=== PATIENT | female | born 1950 | race Caucasian/White ===

== ENCOUNTER 2018-05-22 12:38 | Inpatient (IN) | payer MEDICARE, MEDICAID ==
[~2018-05-22] VITALS: Ht 165.1 cm; Wt 78.2 kg
[2018-05-22 12:38] VITALS: BP 109/61
[~2018-05-22 12:38] MED LIST: AMLODIPINE BESY10 MG ORAL; ATORVASTATIN CA20 MG ORAL; DIVALPROEX SOD500 M2 PO; FLUPHENAZINE HCL5 MG ORAL; LEVOTHYROXINE75 MCG ORAL; LORAZEPAM1 MG ORAL; METOPROLOL SUC100 MG ORAL; OLANZAPINE ODT10 MG PO; OMEPRAZOLE20 M2 ORAL; TEMAZEPAM15 MG ORAL
--- NOTE | 2018-05-22 12:40 | NUR ---
ED Nurse Note: Pt brought in by ambulance from [facility] (assisted living), per EMS report, pt fell today unwitnessed and staff sent pt for eval. ENR to hospital, pt , 02 was at 86% and started nonrebreather. Pt AA&ox3, gcs=15, skin warm and dry, noted tacypnea, but no accessory muscle use, abd round and soft, nontender, -n/v/d. pt states she uses walker at the facility for ambulation. pt NSR on air sampling and monitoring, base line o2 83 on RA, kept pt on nonbreather via 6L/min. Bed lowest position with side rail x2, ERMD notified regarding pts condition. Will cont monitor.
[2018-05-22] MEDS ORDERED: UNOBMED (12:45)
--- NOTE | 2018-05-22 12:45 | NUR ---
ED Nurse Note: care endorsed to Jannie and gave report.
--- NOTE | 2018-05-22 13:10 | NUR ---
ED Nurse Note: Xray at the bedside.
[2018-05-22 13:12] LABS: BASOPHILS % (AUTO) 0.8 % (0.0-2.0); EOSINOPHILS % (AUTO) 0.1 % (0.0-3.0); HEMATOCRIT 47.5 % (37.0-47.0); HEMOGLOBIN 15.9 G/DL (12.0-16.0); LYMPHOCYTES % (AUTO) 16.7 % (20.0-45.0); MEAN CORPUSCULAR VOLUME 93 FL (80-99); MONOCYTES % (AUTO) 12.6 % (1.0-10.0); NEUTROPHILS % (AUTO) 69.7 % (45.0-75.0); PLATELET COUNT 231 K/UL (150-450); RED BLOOD COUNT 5.12 M/UL (4.20-5.40); WHITE BLOOD COUNT 16.1 K/UL (4.8-10.8)
[2018-05-22 13:17] LABS: APPEARANCE,URINE CLEAR; BILIRUBIN, URINE NEGATIVE (NEGATIVE); GLUCOSE, URINE (UA) NEGATIVE (NEGATIVE); KETONES,URINE 1+ (NEGATIVE); LEUKOCYTE ESTERASE ,URINE 1+ (NEGATIVE); NITRITE,URINE NEGATIVE (NEGATIVE); PH,URINE 6 (4.5-8.0); PROTEIN,URINE 2+ (NEGATIVE); UROBILINOGEN,URINE 1 MG/DL (0.0-1.0)
--- NOTE | 2018-05-22 13:25 | NUR ---
ED Nurse Note: Notified RT of ABG and Bipap order.
[2018-05-22 13:29] LABS: ALANINE AMINOTRANSFERASE 24 U/L (12-78); ALBUMIN 2.9 G/DL (3.4-5.0); ALBUMIN/GLOBULIN RATIO 0.7 (1.0-2.7); ALKALINE PHOSPHATASE 99 U/L (46-116); ANION GAP 5 mmol/L (5-15); ASPARTATE AMINO TRANSFERASE 32 U/L (15-37); BILIRUBIN,TOTAL 0.3 MG/DL (0.2-1.0); BLOOD UREA NITROGEN 12 mg/dL (7-18); CALCIUM 9.2 MG/DL (8.5-10.1); CARBON DIOXIDE 34 MMOL/L (21-32); CHLORIDE 101 MMOL/L (98-107); CREATININE 0.8 MG/DL (0.55-1.30); POTASSIUM 3.7 MMOL/L (3.5-5.1); SODIUM 140 MMOL/L (136-145)
[2018-05-22 13:32] LABS: COLOR,URINE YELLOW
[2018-05-22 13:36] VITALS: BP 109/61
--- NOTE | 2018-05-22 13:38 | Diagnostic Imaging Report ---
Indication: Dyspnea Comparison: None A single view chest radiograph was obtained. Findings: No definite infiltrate or pulmonary vascular congestion identified. The heart is normal in size. The aorta is mildly enlarged consistent with atherosclerotic vascular disease. The bones are osteopenic. Impression: No acute disease
--- NOTE | 2018-05-22 13:45 | NUR ---
ED Nurse Note: RT at the bedside. Bipap on hold.
--- NOTE | 2018-05-22 14:07 | NUR ---
ED Nurse Note: Notified RT of Bipap order. RT at the bedside.
[2018-05-22] MEDS ORDERED: Albuterol ud Inhalation HHN ONE (14:45)
--- NOTE | 2018-05-22 14:50 | NUR ---
ED Nurse Note: Notified RT of breathing tx order.
--- NOTE | 2018-05-22 15:07 | NUR ---
ED Nurse Note: Pt went down to CT.
--- NOTE | 2018-05-22 15:20 | NUR ---
ED Nurse Note: Pt back from CT.
--- NOTE | 2018-05-22 15:22 | NUR ---
ED Nurse Note: Tried to give report. RN unavailable.
--- NOTE | 2018-05-22 15:30 | Emergency Room Report ---
History of Present Illness General Chief Complaint: Dyspnea/Respdistress Source: Patient Present Illness HPI Patient presents from a long term facility for low oxygen saturations. The patient herself has no specific complaints. The patient is sleepy but can answer basic yes or no questions. There is no fever or chills. There is no cough or congestion. There is no chest pain or shortness of breath. There are no other complaints. Allergies: Coded Allergies: No Known Allergies (Unverified , 05/22/18) Patient History Past Medical History: see triage record, HTN, psych hx Social History: Denies: smoking, alcohol use, drug use Reviewed Nursing Documentation: PMH: Agreed; PSxH: Agreed Nursing Documentation-PMH Past Medical History: No Stated History Review of Systems All Other Systems: negative except mentioned in HPI Physical Exam Vital Signs Date Time Temp Pulse Resp B/P (MAP) Pulse Ox O2 Delivery O2 Flow Rate FiO2 05/22/18 12:38 98.4 98 30 109/61 83 Room Air 05/22/18 12:39 10.0 05/22/18 14:15 60 Sp02 EP Interpretation: reviewed, normal General Appearance: no apparent distress, GCS 15, non-toxic, other - sleepy but arousable to answer questions appropriately Head: normocephalic, atraumatic Eyes: bilateral eye normal inspection, bilateral eye PERRL ENT: hearing grossly normal, normal pharynx, no angioedema, normal voice Neck: full range of motion, supple/symm/no masses Respiratory: chest non-tender, lungs clear, normal breath sounds, no respiratory distress, no retraction, no accessory muscle use, speaking full sentences Cardiovascular #1: regular rate, rhythm, no edema Gastrointestinal: normal bowel sounds, non tender, soft, non-distended, no guarding, no rebound Rectal: deferred Musculoskeletal: back normal, gait/station normal, normal range of motion, non- tender Neurologic: alert, oriented x3, responsive, motor strength/tone normal, sensory intact, speech normal Psychiatric: judgement/insight normal, memory normal, mood/affect normal, no suicidal/homicidal ideation Skin: normal color, no rash, warm/dry, well hydrated Medical Decision Making Diagnostic Impression: Primary Impression: Hypoxemia Additional Impressions: Hypercarbia Benzodiazepine dependence ER Course This patient presents from a long term facility. She is found to have hypoxemia and hypercarbia. She is also very sleepy. Review of the patient's medical record reveals that this patient is on a lot of benzodiazepines for anxiety. I suspect this is secondary to benzodiazepine side effects. The patient was placed on BiPAP and did very well with BiPAP. The patient is arousable and can answer questions appropriately. The patient is admitted for further respiratory monitoring and further management of her hypoxemia and hypercarbia. This patient is critically ill. This patient required complex medical decision- making, aggressive intervention, extensive laboratory workup and monitoring. Critical care time: 40 minutes. Laboratory Tests Test 05/22/18 13:00 05/22/18 13:05 05/22/18 13:06 05/22/18 13:55 Lactic Acid Level 0.80 mmol/L (0.4-2.0) Urine Color Yellow Urine Appearance Clear Urine pH 6 (4.5-8.0) Urine Specific [place] 1.015 (1.005-1.035) Urine Protein 2+ (NEGATIVE) H Urine Glucose (UA) Negative (NEGATIVE) Urine Ketones 1+ (NEGATIVE) H Urine Blood Negative (NEGATIVE) Urine Nitrite Negative (NEGATIVE) Urine Bilirubin Negative (NEGATIVE) Urine Urobilinogen 1 MG/DL (0.0-1.0) H Urine Leukocyte Esterase 1+ (NEGATIVE) H Urine RBC 0-2 /HPF (0 - 2) Urine WBC 2-4 /HPF (0 - 2) Urine Squamous Epithelial Cells Few /LPF (NONE/OCC) Urine Bacteria Moderate /HPF (NONE) H White Blood Count 16.1 K/UL (4.8-10.8) H Red Blood Count 5.12 M/UL (4.20-5.40) Hemoglobin 15.9 G/DL (12.0-16.0) Hematocrit 47.5 % (37.0-47.0) H Mean Corpuscular Volume 93 FL (80-99) Mean Corpuscular Hemoglobin 31.0 PG (27.0-31.0) Mean Corpuscular Hemoglobin Concent 33.5 G/DL (32.0-36.0) Red Cell Distribution Width 11.0 % (11.6-14.8) L Platelet Count 231 K/UL (150-450) Mean Platelet Volume 6.6 FL (6.5-10.1) Neutrophils (%) (Auto) 69.7 % (45.0-75.0) Lymphocytes (%) (Auto) 16.7 % (20.0-45.0) L Monocytes (%) (Auto) 12.6 % (1.0-10.0) H Eosinophils (%) (Auto) 0.1 % (0.0-3.0) Basophils (%) (Auto) 0.8 % (0.0-2.0) Sodium Level 140 MMOL/L (136-145) Potassium Level 3.7 MMOL/L (3.5-5.1) Chloride Level 101 MMOL/L (98-107) Carbon Dioxide Level 34 MMOL/L (21-32) H Anion Gap 5 mmol/L (5-15) Blood Urea Nitrogen 12 mg/dL (7-18) Creatinine 0.8 MG/DL (0.55-1.30) Estimate Glomerular Filtration Rate > 60 mL/min (>60) Glucose Level 125 MG/DL (74-106) H Calcium Level 9.2 MG/DL (8.5-10.1) Total Bilirubin 0.3 MG/DL (0.2-1.0) Aspartate Amino Transferase (AST) 32 U/L (15-37) Alanine Aminotransferase (ALT) 24 U/L (12-78) Alkaline Phosphatase 99 U/L (46-116) Troponin I 0.019 ng/mL (0.000-0.056) Total Protein 7.3 G/DL (6.4-8.2) Albumin 2.9 G/DL (3.4-5.0) L Globulin 4.4 g/dL Albumin/Globulin Ratio 0.7 (1.0-2.7) L Arterial Blood pH 7.292 (7.350-7.450) Arterial Blood Partial Pressure CO2 63.9 mmHg (35.0-45.0) *H Arterial Blood Partial Pressure O2 73.6 mmHg (75.0-100.0) L Arterial Blood HCO3 30.2 mmol/L (22.0-26.0) H Arterial Blood Oxygen Saturation 93.2 % (95-100) L Arterial Blood Base Excess 1.7 (-2-2) Rahul Test Positive Microbiology Date/Time Source Procedure Growth Status 05/22/18 13:00 Nasal Nares Influenza Types A,B Antigen (JALEESA) - Final Complete EKG Diagnostic Results Rate: normal Rhythm: NSR ST Segments: no acute changes Rhythm Strip Diag. Results EP Interpretation: yes Rate: 90's Rhythm: NSR, no PVC's, no ectopy Chest X-Ray Diagnostic Results Chest X-Ray Diagnostic Results : Chest X-Ray Ordered: Yes # of Views/Limited/Complete: 1 View Indication: Other Interpretation: no consolidation, no effusion, no pneumothorax, no acute cardiopulmonary disease Impression: No acute disease CT/MRI/US Diagnostic Results CT/MRI/US Diagnostic Results : Imaging Test Ordered: CT head Last Vital Signs Date Time Temp Pulse Resp B/P (MAP) Pulse Ox O2 Delivery O2 Flow Rate FiO2 05/22/18 14:15 88 20 100 Facial 60 05/22/18 13:36 97.9 109/61 10.0 Status: improved Disposition: ADMITTED INPATIENT Condition: Critical Referrals: Margot Dutta MD (PCP) Radha Minor DO May 22, 2018 15:30
--- NOTE | 2018-05-22 15:31 | NUR ---
ED Nurse Note: RT at the bedside for breathing tx.
--- NOTE | 2018-05-22 15:43 | NUR ---
ED Nurse Note: Tried giving report to RN. RN unavailable.
--- NOTE | 2018-05-22 15:43 | Diagnostic Imaging Report ---
Indication: Headache Technique: Contiguous 5 mm thick transaxial imaging of the head obtained in a Siemens Sensation [address] scanner. Soft tissue and bone windows generated. Automatic Exposure Control was utilized. Total Dose length Product (DLP): 1369.[address] Dose Index Volume (CTDIvol): 70.38 mGy Comparison: none Findings: There is mild prominence of the ventricles, basal cisterns, and cerebral sulci consistent with atrophy. Mild, nonspecific, white matter hypoattenuation is noted throughout the brain consistent with chronic small vessel disease. There is no midline shift, edema, acute hemorrhage, mass effect, or abnormal extra-axial fluid collections. Bones and extra osseous soft tissues are unremarkable. Impression: No acute intracranial bleed, mass effect or edema. Mild atrophy of the brain. Nonspecific white matter hypoattenuation probably due to chronic small vessel disease. The CT scanner at [facility] is accredited by the [employer] and the scans are performed using dose optimization techniques as appropriate to a performed exam including Automatic Exposure control.
[2018-05-22 15:48] VITALS: BP 121/63
--- NOTE | 2018-05-22 16:05 | NUR ---
ED Nurse Note: Tried giving report. RN unavailable.
--- NOTE | 2018-05-22 16:25 | NUR ---
ED Nurse Note: Gave telephone report to RAUL Escobar.
--- NOTE | 2018-05-22 16:43 | Cardiac Electrophysiology PN ---
Subjective Subjective [id number] Objective Last 24 Hour Vital Signs Date Time Temp Pulse Resp B/P (MAP) Pulse Ox O2 Delivery O2 Flow Rate FiO2 05/22/18 15:48 98.0 101 18 121/63 100 Bi-pap 10.0 60 05/22/18 15:42 96 22 100 Bi-pap 60 05/22/18 15:32 97 20 100 Bi-pap 60 05/22/18 15:32 97 20 Bi-pap 60 05/22/18 15:15 95 18 100 Facial 50 05/22/18 14:15 88 20 100 Facial 60 05/22/18 13:36 97.9 98 24 109/61 100 Non-Rebreather 10.0 05/22/18 12:40 28 96 Non-Rebreather 6.0 05/22/18 12:39 97.9 99 18 131/76 96 Non-Rebreather 10.0 05/22/18 12:38 98 30 Room Air 05/22/18 12:38 98.4 98 30 109/61 83 Room Air Laboratory Tests Test 05/22/18 13:00 05/22/18 13:05 05/22/18 13:06 05/22/18 13:55 Lactic Acid Level 0.80 mmol/L (0.4-2.0) Urine Color Yellow Urine Appearance Clear Urine pH 6 (4.5-8.0) Urine Specific [place] 1.015 (1.005-1.035) Urine Protein 2+ (NEGATIVE) H Urine Glucose (UA) Negative (NEGATIVE) Urine Ketones 1+ (NEGATIVE) H Urine Blood Negative (NEGATIVE) Urine Nitrite Negative (NEGATIVE) Urine Bilirubin Negative (NEGATIVE) Urine Urobilinogen 1 MG/DL (0.0-1.0) H Urine Leukocyte Esterase 1+ (NEGATIVE) H Urine RBC 0-2 /HPF (0 - 2) Urine WBC 2-4 /HPF (0 - 2) Urine Squamous Epithelial Cells Few /LPF (NONE/OCC) Urine Bacteria Moderate /HPF (NONE) H White Blood Count 16.1 K/UL (4.8-10.8) H Red Blood Count 5.12 M/UL (4.20-5.40) Hemoglobin 15.9 G/DL (12.0-16.0) Hematocrit 47.5 % (37.0-47.0) H Mean Corpuscular Volume 93 FL (80-99) Mean Corpuscular Hemoglobin 31.0 PG (27.0-31.0) Mean Corpuscular Hemoglobin Concent 33.5 G/DL (32.0-36.0) Red Cell Distribution Width 11.0 % (11.6-14.8) L Platelet Count 231 K/UL (150-450) Mean Platelet Volume 6.6 FL (6.5-10.1) Neutrophils (%) (Auto) 69.7 % (45.0-75.0) Lymphocytes (%) (Auto) 16.7 % (20.0-45.0) L Monocytes (%) (Auto) 12.6 % (1.0-10.0) H Eosinophils (%) (Auto) 0.1 % (0.0-3.0) Basophils (%) (Auto) 0.8 % (0.0-2.0) Sodium Level 140 MMOL/L (136-145) Potassium Level 3.7 MMOL/L (3.5-5.1) Chloride Level 101 MMOL/L (98-107) Carbon Dioxide Level 34 MMOL/L (21-32) H Anion Gap 5 mmol/L (5-15) Blood Urea Nitrogen 12 mg/dL (7-18) Creatinine 0.8 MG/DL (0.55-1.30) Estimat Glomerular Filtration Rate > 60 mL/min (>60) Glucose Level 125 MG/DL (74-106) H Calcium Level 9.2 MG/DL (8.5-10.1) Total Bilirubin 0.3 MG/DL (0.2-1.0) Aspartate Amino Transf (AST/SGOT) 32 U/L (15-37) Alanine Aminotransferase (ALT/SGPT) 24 U/L (12-78) Alkaline Phosphatase 99 U/L (46-116) Troponin I 0.019 ng/mL (0.000-0.056) Total Protein 7.3 G/DL (6.4-8.2) Albumin 2.9 G/DL (3.4-5.0) L Globulin 4.4 g/dL Albumin/Globulin Ratio 0.7 (1.0-2.7) L Arterial Blood pH 7.292 (7.350-7.450) Arterial Blood Partial Pressure CO2 63.9 mmHg (35.0-45.0) *H Arterial Blood Partial Pressure O2 73.6 mmHg (75.0-100.0) L Arterial Blood HCO3 30.2 mmol/L (22.0-26.0) H Arterial Blood Oxygen Saturation 93.2 % (95-100) L Arterial Blood Base Excess 1.7 (-2-2) Rahul Test Positive Microbiology Date/Time Source Procedure Growth Status 05/22/18 13:00 Nasal Nares Influenza Types A,B Antigen (JALEESA) - Final Complete Zane Ocampo MD May 22, 2018 16:43
[2018-05-22 18:17] VITALS: BP 109/65
--- NOTE | 2018-05-22 18:19 | NUR ---
ED Nurse Note: Tried giving report to RN. RN unavailable.
--- NOTE | 2018-05-22 18:47 | NUR ---
ED Nurse Note: Gave telephone report to RAUL Rizzo.
--- NOTE | 2018-05-22 19:15 | NUR ---
ED Nurse Note: Transferred pt to unit. No acute distress noted. Left ER w/ all belongings.
--- NOTE | 2018-05-22 19:15 | Consultation ---
DATE OF CONSULTATION: 05/22/2018 CARDIOLOGY CONSULTATION CONSULTING PHYSICIAN: Zane Ocampo M.D. REFERRING PHYSICIAN: Margot Dutta M.D. REASON FOR CONSULTATION: Respiratory failure and hypertension. HISTORY OF PRESENT ILLNESS: The patient is a 67-year-old lady with history of hypertension, COPD, and hyperlipidemia as well as history of psychiatric issue, who was brought from correction. The patient had a fall and hip pain. The patient in the emergency room was found to be with hypercarbia and was placed on BiPAP. The patient's lactic acid level was 0.8. Cardiology consultation was obtained for further evaluation and management. At the time of my evaluation, the patient is still in the emergency room and short of breath, on BiPAP. REVIEW OF SYSTEMS: Cannot be obtained as quite short of breath. PAST MEDICAL HISTORY: As mentioned above. FAMILY HISTORY: Noncontributory. SOCIAL HISTORY: She lives in a correction. Does not smoke or drink alcohol. PHYSICAL EXAMINATION: VITAL SIGNS: Blood pressure is 121/63, pulse is 101, respirations 18, and temperature 98. HEAD AND NECK: Shows no JVD. She has BiPAP. LUNGS: Coarse rhonchi. CARDIOVASCULAR: Shows regular S1 and S2 with no gallop or murmur. Tachycardic. ABDOMEN: Soft. EXTREMITIES: No pitting edema. LABORATORY AND DIAGNOSTIC DATA: Her EKG showed normal sinus rhythm with nonspecific T-wave abnormalities. LABORATORY DATA: Labs show white count of 16.5, hematocrit 15.9, hematocrit of 47.5, and platelet count 231,000. Sodium 140, potassium 3.7, BUN of 12, creatinine 0.8, and glucose of 125. Troponin is negative. ASSESSMENT AND PLAN: 1. Acute shortness of breath. The patient with COPD. The patient will be getting antibiotic and breathing treatment per Dr. Membreno as well as Infectious Disease. The patient's first troponin is negative. We will completely rule out NC protocol and repeat EKG as well as we will get an echocardiogram as well as brain-natriuretic peptide for further evaluation. We will start the patient on low-dose Lasix in the meantime. 2. Elevated white count, likely pneumonia, on BiPAP. Antibiotic per Dr. Cohen. 3. History of psychosis. Thank you very much, Dr. Dutta, for allowing me to participate in the care of this patient. Please do not hesitate to contact me for any questions regarding my evaluation. Zane Ocampo M.D. DR: Fadi JOB#: [id number] CC:
[2018-05-22] MEDS ORDERED: Albuterol/Ipratropium 3ml neb HHN PRN (19:45)
--- NOTE | 2018-05-22 19:58 | Consultation ---
Consult Note Assessment/Plan DICT # [id number] Rory Membreno MD May 22, 2018 19:58
[2018-05-22 20:00] VITALS: BP 130/69
--- NOTE | 2018-05-22 20:01 | NUR ---
NURSE NOTES: Received report and pt from Jannie NET FRONT END DEVELOPER. Pt transferred to bed and placed on BIPAP. Pt awake and verbally responsive and follows commands. Tele monitor applied. Bed placed in lowest position with side rails up x2 and call light in reach. Will continue to monitor.
[2018-05-22] MEDS ORDERED: SYNTHROID50 MCG ORAL (20:13)
[2018-05-22] MEDS ORDERED: LORAZEPAM2 MG ORAL (20:13)
--- NOTE | 2018-05-22 22:00 | Consultation ---
DATE OF CONSULTATION: 05/22/2018 PULMONARY CONSULTATION CONSULTING PHYSICIAN: Rory Membreno M.D. REFERRING PHYSICIAN: Margot Dutta M.D. REASON FOR CONSULTATION: Respiratory failure. HISTORY OF PRESENT ILLNESS: The patient is a 67-year-old female, assisted living resident with a history of hypertension, chronic obstructive pulmonary disease, hyperlipidemia, and underlying psychiatric disorder with recent fall and hip pain, who presented to the emergency department with shortness of breath and hypercapnia. The patient was placed on BiPAP. Other than a leukocytosis and a mild urinary tract infection, chest x-ray was unremarkable. She denies any cough, wheezing, or hemoptysis. No fevers, chills, chest pain. She actually denies shortness of breath when asked. The patient has a history of COPD per report and per her own statement, but is not on any underlying inhaler regimen. PAST MEDICAL HISTORY: 1. Hypertension. 2. Hyperlipidemia. 3. Chronic obstructive pulmonary disease. 4. Hypothyroidism. 5. GERD. 6. Psychiatric disorder. ALLERGIES: No known drug allergies. MEDICATIONS: Prior to admission medications reviewed. Current medications reviewed. SOCIAL HISTORY: She is a board and care resident. She is a former smoker. Denies drug or alcohol use. FAMILY HISTORY: Noncontributory. REVIEW OF SYSTEMS: Review of systems negative other than history of present illness. PHYSICAL EXAMINATION: VITAL SIGNS: Temperature 98.1, pulse 118, blood pressure 120/95, respiratory rate 20 on BiPAP, saturating 100% on FiO2 45%. GENERAL: She is a disheveled female, in no acute distress on BiPAP. HEENT: Normocephalic and atraumatic. Oropharynx is clear. Mucous membranes are moist. NECK: Supple without lymphadenopathy or JVD. CHEST: Clear but distant. HEART: Regular rate and rhythm. ABDOMEN: Soft, nontender, and nondistended. EXTREMITIES: No cyanosis, clubbing, or edema. LABORATORY AND DIAGNOSTIC DATA: Ancillary data, white count 16.1, hemoglobin 15.9, hematocrit 47.5, and platelet count 231. ABG 7.292/63/73/30/93. Sodium 140, potassium 3.7, chloride 101, bicarbonate 34, BUN 12, creatinine 0.8, glucose 125. Lactic acid 0.8. Calcium 9.2. Total bilirubin 0.3, AST 32, ALT 24, and alkaline phosphatase 99. Troponin 0.019. Total protein 7.3, albumin 2.9. D-dimer 0.78. Urinalysis, 2+ protein, 1+ ketones, 1+ urobilinogen, 1+ leukocyte esterase, moderate bacteria. A chest x-ray, no acute findings. ASSESSMENT: The patient is a 67-year-old female smoker with history of chronic obstructive pulmonary disease, assisted living resident, hypertension, hyperlipidemia, hypothyroidism, presenting after a fall, respiratory distress, likely exacerbation of chronic obstructive pulmonary disease and urinary tract infection. PROBLEM LIST: 1. Acute on chronic hypercapnic respiratory failure. 2. Chronic obstructive pulmonary disease with acute exacerbation. 3. Urinary tract infection. 4. Leukocytosis secondary to above. 5. Questionable fall. 6. History of psychiatric disorder. 7. Hypertension, hyperlipidemia, hypothyroidism. 8. Mild elevation of D-dimer. TREATMENT PLAN: 1. Optimize pulmonary hygiene/mobilize as tolerated. 2. Continue BiPAP but changed to 12/5. 3. Check repeat ABG. 4. Titrate FiO2 to keep saturations greater than 90%. 5. [id number]-fqvma and needed DuoNeb. 6. Monitor for signs of respiratory infection. 7. We will start patient on cefepime. 8. Follow up duplex and D-dimer. 9. NPO while on BiPAP, once off we will advance diet cautiously with aspiration precautions. 10. Monitor volumes and renal function, continue IV Lasix per Cardiology. 11. DVT prophylaxis with heparin subcutaneous. 12. The patient should have outpatient workup including pulmonary function tests and screening CT scan of the chest. Dr. Dutta, thank you for allowing me to assist in the care of your patient. If I may be of any assistance in the future, please do not hesitate to ask. Rory Membreno M.D. DR: Cristobal JOB#: [id number] CC:
[2018-05-22] MEDS: Cefepime HCl 1 GM in D5W 55 ML IVPB SCH (22:38)
[2018-05-22] MEDS: Heparin 5000 units/ml inj SUBQ SCH (22:45)
[2018-05-23] VITALS (7 sets, daily range): BP systolic 107–131; BP diastolic 54–87
--- NOTE | 2018-05-23 01:08 | NUR ---
NURSE NOTES: Left message for MD Dutta regarding diet order because pt asking for drink. Awaiting call back.
--- NOTE | 2018-05-23 05:38 | NUR ---
NURSE NOTES: Called and asked MD Membreno for another ABG order per RT due to pt desaturating to 84% on FiO2 of 28%. RT increased her FiO2 to 40% and now pt is 88% O2 sat. New order noted and carried out.
[2018-05-23] MEDS: Albuterol/Ipratropium 3ml neb HHN SCH ×4 (05:43→20:05)
[2018-05-23 06:26] LABS: ANION GAP 4 mmol/L (5-15); BLOOD UREA NITROGEN 10 mg/dL (7-18); CALCIUM 9.1 MG/DL (8.5-10.1); CARBON DIOXIDE 34 MMOL/L (21-32); CHLORIDE 103 MMOL/L (98-107); CREATININE 0.7 MG/DL (0.55-1.30); POTASSIUM 4.1 MMOL/L (3.5-5.1); SODIUM 141 MMOL/L (136-145)
--- NOTE | 2018-05-23 07:32 | NUR ---
HAND-OFF: Report given to Chidi Dent RN. During report MD Dutta called back and new orders noted and endorsed to day shift RN. Pt stable.
--- NOTE | 2018-05-23 07:33 | NUR ---
NURSE NOTES: Received report from RAUL Otero. Pt is resting in bed, RT at bed side and given breathing treatment. Bed in lowest position with two side rails up. No signs and symptoms of acute distress noted at this time. Bed side table and call light within reach. Bed alarm on. Will continue to monitor and follow the plan of care.
[2018-05-23] MEDS: Cefepime HCl 1 GM in D5W 55 ML IVPB SCH ×2 (09:16→21:26)
[2018-05-23] MEDS: Heparin 5000 units/ml inj SUBQ SCH ×2 (09:24→21:30)
--- NOTE | 2018-05-23 11:09 | Consultation ---
Consult Note Consult Note asked to eval at the request of Dr Bahena patient to Er with SOB PH 1. Hypertension. 2. Hyperlipidemia. 3. Chronic obstructive pulmonary disease. 4. Hypothyroidism. 5. GERD. 6. Psychiatric disorder. uncoaporative- examined data reviewed Assessment/Plan admitted with exacerbation COPD and Hypoxia High WBCs : UTI , Pneumonia Proteinuria and HypoAlbuminemia BIPAP Antibiotics 24 h urine proteins 2D echo optimize cardiac status Seamus Morfin MD May 23, 2018 11:09
--- NOTE | 2018-05-23 11:22 | Consultation ---
History of Present Illness General Chief Complaint: Dyspnea/Respdistress Present Illness HPI 67-year-old female, with a history of schizoaffective disorder, hypertension, chronic obstructive pulmonary disease, hyperlipidemia, and recent fall, who presented to the emergency department with shortness of breath. The pt has been lethargic and pw confusion and forgetfulness. the pt is on zyprexa, prozac and depakote. the pt was a poor historian. no si/hi. Allergies: Coded Allergies: No Known Allergies (Unverified , 05/22/18) Medication History Scheduled Amlodipine Besylate* (Amlodipine Besylate*), 10 MG ORAL DAILY, (Reported) Atorvastatin Calcium* (Atorvastatin Calcium*), 10 MG ORAL BEDTIME, (Reported) Divalproex Sodium (Divalproex Sodium Er), 500 MG PO BID, (Reported) Fluphenazine Hcl* (Prolixin*), 5 MG ORAL DAILY, (Reported) Fluphenazine Hcl* (Prolixin*), 10 MG ORAL HS, (Reported) Levothyroxine Sodium (Synthroid), 50 MCG ORAL DAILY, (Reported) Levothyroxine Sodium* (Levothyroxine Sodium*), 50 MCG ORAL AM, (Reported) Lorazepam* (Lorazepam*), 1 MG ORAL Q4H, (Reported) Lorazepam* (Lorazepam*), 2 MG ORAL Q4HR, (Reported) Metoprolol Succinate* (Metoprolol Succinate*), 100 MG ORAL DAILY, (Reported) Olanzapine (Olanzapine Odt), 10 MG PO DAILY, (Reported) Omeprazole (Omeprazole), 20 MG ORAL DAILY, (Reported) Temazepam (Temazepam*), 15 MG ORAL BEDTIME, (Reported) Miscellaneous Medications Unable to Obtain Medications (Unable To Obtain Meds), (Reported) Patient History Limited by: medical condition History Provided By: Patient, Medical Record, PMD Healthcare decision maker Resuscitation status Full Code Advanced Directive on File Past Medical/Surgical History Past Medical/Surgical History: (1) Hypoxemia (2) Hypercarbia (3) Benzodiazepine dependence (4) Hypoxia Review of Systems Psychiatric: Reports: prior hx, anxiety, depressed feelings, emotional problems Physical Exam General Appearance: alert, confused - forgetful unable to retain info, moderate distress, agitated Last 24 Hour Vital Signs Date Time Temp Pulse Resp B/P (MAP) Pulse Ox O2 Delivery O2 Flow Rate FiO2 05/23/18 08:01 99.7 108 22 131/76 (94) 90 05/23/18 08:00 109 05/23/18 08:00 40 05/23/18 08:00 Bi-pap 7.0 05/23/18 07:17 113 24 91 Venturi Mask 10.0 45 05/23/18 07:09 114 16 89 Venturi Mask 10.0 45 05/23/18 05:07 99 38 92 Facial 40 05/23/18 04:00 98.9 107 32 115/69 (84) 96 05/23/18 04:00 107 05/23/18 04:00 Bi-pap 7.0 05/23/18 04:00 40 05/23/18 02:47 104 37 93 Facial 40 05/23/18 01:12 101 38 94 Facial 40 05/23/18 00:00 108 05/23/18 00:00 Bi-pap 7.0 05/23/18 00:00 99.5 110 28 124/66 (85) 95 05/23/18 00:00 28 05/22/18 23:21 104 35 98 Facial 50 05/22/18 23:03 Bi-pap 10.0 05/22/18 21:19 104 24 97 Facial 80 05/22/18 20:00 101.7 114 37 130/69 (89) 96 05/22/18 19:45 100 24 97 Facial 45 05/22/18 19:13 98.1 118 32 120/95 100 Bi-pap 45 05/22/18 18:17 98.2 115 23 109/65 100 10.0 45 05/22/18 17:18 80 18 100 Facial 45 05/22/18 15:48 98.0 101 18 121/63 100 Bi-pap 10.0 60 05/22/18 15:42 96 22 100 Bi-pap 60 05/22/18 15:32 97 20 100 Bi-pap 60 05/22/18 15:32 97 20 Bi-pap 60 05/22/18 15:15 95 18 100 Facial 50 05/22/18 14:15 88 20 100 Facial 60 05/22/18 13:36 97.9 98 24 109/61 100 Non-Rebreather 10.0 05/22/18 12:40 28 96 Non-Rebreather 6.0 05/22/18 12:39 97.9 99 18 131/76 96 Non-Rebreather 10.0 05/22/18 12:38 98 30 Room Air 05/22/18 12:38 98.4 98 30 109/61 83 Room Air Laboratory Tests Test 05/22/18 13:00 05/22/18 13:05 05/22/18 13:06 05/22/18 13:55 Lactic Acid Level 0.80 mmol/L (0.4-2.0) Urine Color Yellow Urine Appearance Clear Urine pH 6 (4.5-8.0) Urine Specific [place] 1.015 (1.005-1.035) Urine Protein 2+ (NEGATIVE) H Urine Glucose (UA) Negative (NEGATIVE) Urine Ketones 1+ (NEGATIVE) H Urine Blood Negative (NEGATIVE) Urine Nitrite Negative (NEGATIVE) Urine Bilirubin Negative (NEGATIVE) Urine Urobilinogen 1 MG/DL (0.0-1.0) H Urine Leukocyte Esterase 1+ (NEGATIVE) H Urine RBC 0-2 /HPF (0 - 2) Urine WBC 2-4 /HPF (0 - 2) Urine Squamous Epithelial Cells Few /LPF (NONE/OCC) Urine Bacteria Moderate /HPF (NONE) H White Blood Count 16.1 K/UL (4.8-10.8) H Red Blood Count 5.12 M/UL (4.20-5.40) Hemoglobin 15.9 G/DL (12.0-16.0) Hematocrit 47.5 % (37.0-47.0) H Mean Corpuscular Volume 93 FL (80-99) Mean Corpuscular Hemoglobin 31.0 PG (27.0-31.0) Mean Corpuscular Hemoglobin Concent 33.5 G/DL (32.0-36.0) Red Cell Distribution Width 11.0 % (11.6-14.8) L Platelet Count 231 K/UL (150-450) Mean Platelet Volume 6.6 FL (6.5-10.1) Neutrophils (%) (Auto) 69.7 % (45.0-75.0) Lymphocytes (%) (Auto) 16.7 % (20.0-45.0) L Monocytes (%) (Auto) 12.6 % (1.0-10.0) H Eosinophils (%) (Auto) 0.1 % (0.0-3.0) Basophils (%) (Auto) 0.8 % (0.0-2.0) D-Dimer 0.78 mg/L FEU (0.00-0.49) H Sodium Level 140 MMOL/L (136-145) Potassium Level 3.7 MMOL/L (3.5-5.1) Chloride Level 101 MMOL/L (98-107) Carbon Dioxide Level 34 MMOL/L (21-32) H Anion Gap 5 mmol/L (5-15) Blood Urea Nitrogen 12 mg/dL (7-18) Creatinine 0.8 MG/DL (0.55-1.30) Estimat Glomerular Filtration Rate > 60 mL/min (>60) Glucose Level 125 MG/DL (74-106) H Calcium Level 9.2 MG/DL (8.5-10.1) Total Bilirubin 0.3 MG/DL (0.2-1.0) Aspartate Amino Transf (AST/SGOT) 32 U/L (15-37) Alanine Aminotransferase (ALT/SGPT) 24 U/L (12-78) Alkaline Phosphatase 99 U/L (46-116) Troponin I 0.019 ng/mL (0.000-0.056) Total Protein 7.3 G/DL (6.4-8.2) Albumin 2.9 G/DL (3.4-5.0) L Globulin 4.4 g/dL Albumin/Globulin Ratio 0.7 (1.0-2.7) L Arterial Blood pH 7.292 (7.350-7.450) Arterial Blood Partial Pressure CO2 63.9 mmHg (35.0-45.0) *H Arterial Blood Partial Pressure O2 73.6 mmHg (75.0-100.0) L Arterial Blood HCO3 30.2 mmol/L (22.0-26.0) H Arterial Blood Oxygen Saturation 93.2 % (95-100) L Arterial Blood Base Excess 1.7 (-2-2) Rahul Test Positive Test 05/22/18 19:44 05/23/18 03:05 Arterial Blood pH 7.362 (7.350-7.450) Arterial Blood Partial Pressure CO2 57.0 mmHg (35.0-45.0) *H Arterial Blood Partial Pressure O2 44.8 mmHg (75.0-100.0) Arterial Blood HCO3 31.6 mmol/L (22.0-26.0) H Arterial Blood Oxygen Saturation 81.5 % (95-100) *L Arterial Blood Base Excess 4.5 (-2-2) H Rahul Test Positive Sodium Level 141 MMOL/L (136-145) Potassium Level 4.1 MMOL/L (3.5-5.1) Chloride Level 103 MMOL/L (98-107) Carbon Dioxide Level 34 MMOL/L (21-32) H Anion Gap 4 mmol/L (5-15) L Blood Urea Nitrogen 10 mg/dL (7-18) Creatinine 0.7 MG/DL (0.55-1.30) Estimat Glomerular Filtration Rate > 60 mL/min (>60) Glucose Level 102 MG/DL (74-106) Calcium Level 9.1 MG/DL (8.5-10.1) Troponin I 0.000 ng/mL (0.000-0.056) C-Reactive Protein, Quantitative Pending Pro-B-Type Natriuretic Peptide 212 pg/mL (0-125) H Free Thyroxine 1.13 NG/DL (0.76-1.46) Microbiology Date/Time Source Procedure Growth Status 05/22/18 13:00 Nasal Nares Influenza Types A,B Antigen (JALEESA) - Final Complete 05/22/18 13:05 Urine,Clean Catch Urine Culture - Preliminary Resulted 05/22/18 16:07 Rectum Received Height (Feet): 5 Height (Inches): 5.00 Weight (Pounds): 190 Medications Current Medications Medications (Trade) Dose Ordered Sig/Salty Route PRN Reason Start Time Stop Time Status Last Admin Dose Admin Acetaminophen (Tylenol) 500 mg Q4H PRN ORAL Mild Pain/Temp > 100.5 05/23/18 07:30 06/22/18 07:29 Albuterol/ Ipratropium (Albuterol/ Ipratropium) 3 ml Q4H PRN HHN Shortness of Breath 05/22/18 19:45 05/27/18 19:44 Albuterol/ Ipratropium (Albuterol/ Ipratropium) 3 ml Q6HRT HHN 05/23/18 01:00 05/28/18 00:59 05/23/18 07:08 Cefepime HCl 1 gm/ Dextrose 55 ml @ 110 mls/hr EVERY 12 HOURS IVPB 05/22/18 21:00 05/29/18 20:59 05/23/18 09:16 Furosemide (Lasix) 40 mg DAILY IV 05/23/18 09:00 06/22/18 08:59 05/23/18 09:15 Heparin Sodium (Porcine) (Heparin 5000 units/ml) 5,000 units EVERY 12 HOURS SUBQ 05/22/18 21:00 06/21/18 20:59 05/23/18 09:24 Assessment/Plan Problem List: (1) Schizoaffective disorder ICD Codes: F25.9 - Schizoaffective disorder, unspecified SNOMED: 60606838 Status: unchanged Assessment/Plan possible benzo od urine tox va level Reagan Marshall MD May 23, 2018 11:22
[2018-05-23] MEDS: Acetaminophen 500mg (ES) tab ORAL PRN ×2 (11:24→17:09)
--- NOTE | 2018-05-23 12:08 | General Progress Note ---
Assessment/Plan Problem List: (1) Schizoaffective disorder ICD Codes: F25.9 - Schizoaffective disorder, unspecified SNOMED: 14543202 Status: unchanged Assessment/Plan possible benzo od urine tox va level resume prozac resume zyprexa Subjective Date patient seen: May 23, 2018 Neurologic/Psychiatric: Reports: anxiety, depressed, emotional problems Allergies: Coded Allergies: No Known Allergies (Unverified , 05/22/18) Subjective the pt cont to be confused and forgetful uncooperative at times the pt denied taking benzos Objective Last 24 Hour Vital Signs Date Time Temp Pulse Resp B/P (MAP) Pulse Ox O2 Delivery O2 Flow Rate FiO2 05/23/18 08:01 99.7 108 22 131/76 (94) 90 05/23/18 08:00 109 05/23/18 08:00 40 05/23/18 08:00 Bi-pap 7.0 05/23/18 07:17 113 24 91 Venturi Mask 10.0 45 05/23/18 07:09 114 16 89 Venturi Mask 10.0 45 05/23/18 05:07 99 38 92 Facial 40 05/23/18 04:00 98.9 107 32 115/69 (84) 96 05/23/18 04:00 107 05/23/18 04:00 Bi-pap 7.0 05/23/18 04:00 40 05/23/18 02:47 104 37 93 Facial 40 05/23/18 01:12 101 38 94 Facial 40 05/23/18 00:00 108 05/23/18 00:00 Bi-pap 7.0 05/23/18 00:00 99.5 110 28 124/66 (85) 95 05/23/18 00:00 28 05/22/18 23:21 104 35 98 Facial 50 05/22/18 23:03 Bi-pap 10.0 05/22/18 21:19 104 24 97 Facial 80 05/22/18 20:00 101.7 114 37 130/69 (89) 96 05/22/18 19:45 100 24 97 Facial 45 05/22/18 19:13 98.1 118 32 120/95 100 Bi-pap 45 05/22/18 18:17 98.2 115 23 109/65 100 10.0 45 05/22/18 17:18 80 18 100 Facial 45 05/22/18 15:48 98.0 101 18 121/63 100 Bi-pap 10.0 60 05/22/18 15:42 96 22 100 Bi-pap 60 05/22/18 15:32 97 20 100 Bi-pap 60 05/22/18 15:32 97 20 Bi-pap 60 05/22/18 15:15 95 18 100 Facial 50 05/22/18 14:15 88 20 100 Facial 60 05/22/18 13:36 97.9 98 24 109/61 100 Non-Rebreather 10.0 05/22/18 12:40 28 96 Non-Rebreather 6.0 05/22/18 12:39 97.9 99 18 131/76 96 Non-Rebreather 10.0 05/22/18 12:38 98 30 Room Air 05/22/18 12:38 98.4 98 30 109/61 83 Room Air Laboratory Tests 05/22/18 13:00: Lactic Acid Level 0.80 05/22/18 13:05: Urine Color Yellow, Urine Appearance Clear, Urine pH 6, Urine Specific [place] 1.015, Urine Protein 2+H, Urine Glucose (UA) Negative, Urine Ketones 1+H, Urine Blood Negative, Urine Nitrite Negative, Urine Bilirubin Negative, Urine Urobilinogen 1H, Urine Leukocyte Esterase 1+H, Urine RBC 0-2, Urine WBC 2-4, Urine Squamous Epithelial Cells Few, Urine Bacteria ModerateH 05/22/18 13:06: White Blood Count 16.1H, Red Blood Count 5.12, Hemoglobin 15.9, Hematocrit 47.5H , Mean Corpuscular Volume 93, Mean Corpuscular Hemoglobin 31.0, Mean Corpuscular Hemoglobin Concent 33.5, Red Cell Distribution Width 11.0L, Platelet Count 231, Mean Platelet Volume 6.6, Neutrophils (%) (Auto) 69.7, Lymphocytes (%) (Auto) 16.7L, Monocytes (%) (Auto) 12.6H, Eosinophils (%) (Auto ) 0.1, Basophils (%) (Auto) 0.8, D-Dimer 0.78H, Sodium Level 140, Potassium Level 3.7, Chloride Level 101, Carbon Dioxide Level 34H, Anion Gap 5, Blood Urea Nitrogen 12, Creatinine 0.8, Estimat Glomerular Filtration Rate > 60, Glucose Level 125H, Calcium Level 9.2, Total Bilirubin 0.3, Aspartate Amino Transf (AST/SGOT) 32, Alanine Aminotransferase (ALT/SGPT) 24, Alkaline Phosphatase 99, Troponin I 0.019, Total Protein 7.3, Albumin 2.9L, Globulin 4.4 , Albumin/Globulin Ratio 0.7L 05/22/18 13:55: Arterial Blood pH 7.292L, Arterial Blood Partial Pressure CO2 63.9*H, Arterial Blood Partial Pressure O2 73.6L, Arterial Blood HCO3 30.2H, Arterial Blood Oxygen Saturation 93.2L, Arterial Blood Base Excess 1.7, Rahul Test Positive 05/22/18 19:44: Arterial Blood pH 7.362, Arterial Blood Partial Pressure CO2 57.0*H, Arterial Blood Partial Pressure O2 44.8*L, Arterial Blood HCO3 31.6H, Arterial Blood Oxygen Saturation 81.5*L, Arterial Blood Base Excess 4.5H, Rahul Test Positive 05/23/18 03:05: Sodium Level 141, Potassium Level 4.1, Chloride Level 103, Carbon Dioxide Level 34H, Anion Gap 4L, Blood Urea Nitrogen 10, Creatinine 0.7, Estimat Glomerular Filtration Rate > 60, Glucose Level 102, Calcium Level 9.1, Troponin I 0.000, C- Reactive Protein, Quantitative 15.8H, Pro-B-Type Natriuretic Peptide 212H, Free Thyroxine 1.13 Height (Feet): 5 Height (Inches): 5.00 Weight (Pounds): 190 General Appearance: alert, confused, moderate distress, overweight Neurologic: depressed affect Reagan Marshall MD May 23, 2018 12:08
--- NOTE | 2018-05-23 13:37 | Cardiology Report ---
APPROVED REPORT EXAM: Two-dimensional and M-mode echocardiogram with Doppler and color Doppler. INDICATION Shortness of breath M-Mode DIMENSIONS IVSd1.2 (0.7-1.1cm)Left Atrium (MM)4.8 (1.6-4.0cm) LVDd4.8 (3.5-5.6cm)Aortic Root2.7 (2.0-3.7cm) PWd1.4 (0.7-1.1cm)Aortic Cusp Exc.1.8 (1.5-2.0cm) IVSs1.8 cm LVDs3.1 (2.5-4.0cm) PWs1.5 cm Technically difficult study due to poor acoustical windows. Grossly normal left ventricular chamber size, systolic function and wall motion to extent visualized. Left ventricular ejection fraction grossly estimated to be 65 %. No evidence of left ventricular hypertrophy by 2D. Anterior Echo-free space, may be due to pericardial fat or effusion. All other cardiac chamber sizes are within normal limits. Poor valvular visualization Mitral annulus and aortic root calcification. Pulmonic valve not well visualized. IVC measured at 2.1 cm with slight physiologic collapse. A color flow and spectral Doppler study was performed and revealed: No aortic regurgitation. Trace mitral regurgitation. Mitral diastolic velocities suggest normal diastolic function. Trace tricuspid regurgitation. Tricuspid systolic velocities suggests peak right ventricular systolic pressure of 22 mmHg.
--- NOTE | 2018-05-23 13:44 | Cardiology Report ---
APPROVED REPORT EKG Measurement Heart [id number] Normal sinus rhythm Nonspecific T wave abnormality Abnormal ECG
--- NOTE | 2018-05-23 14:13 | Diagnostic Imaging Report ---
APPROVED REPORT CPT Code: 29528 Present Symptoms Shortness of breath BILATERAL: Imaging reveals a patent deep venous system bilaterally. There is no evidence of thrombus within the femoral, popliteal or tibial segments. The greater saphenous veins are also within normal limits. Doppler indicates normal spontaneous flow within these segments.
--- NOTE | 2018-05-23 14:59 | Pulmonology Progress Note ---
Assessment/Plan Problems: (1) COPD exacerbation (2) Hypercapnic respiratory failure, chronic (3) Hypoxia (4) Benzodiazepine dependence (5) Hypercarbia (6) Schizoaffective disorder Assessment/Plan ASSESSMENT: The patient is a 67-year-old female smoker with history of chronic obstructive pulmonary disease, assisted living resident, hypertension, hyperlipidemia, hypothyroidism, presenting after a fall, respiratory distress, likely exacerbation of chronic obstructive pulmonary disease and urinary tract infection. PROBLEM LIST: 1. Acute on chronic hypercapnic respiratory failure. 2. Chronic obstructive pulmonary disease with acute exacerbation. 3. Urinary tract infection. 4. Leukocytosis secondary to above. 5. Questionable fall. 6. History of psychiatric disorder. 7. Hypertension, hyperlipidemia, hypothyroidism. 8. Mild elevation of D-dimer. TREATMENT PLAN: 1. Optimize pulmonary hygiene/mobilize as tolerated. 2. Change BiPAP to 12/5 qHS and PRN 3. Titrate FiO2 to keep saturations greater than 90%. 4. Mvzcqi-[id number]-bnttx and needed DuoNeb. 5. Start SM 60 IV qDaily (D1) 6. Monitor for signs of respiratory infection. 7. Continue cefepime (D2), F/U Cx's 8. Duplex neg, D-dim only minimally elevated 9. NPO while on BiPAP, once off we will advance diet cautiously with aspiration precautions. 10. Monitor volumes and renal function, continue IV Lasix per Cardiology. 11. DVT prophylaxis with heparin subcutaneous. 12. CT CHEST 13. The patient should have outpatient workup including pulmonary function tests and screening CT scan of the chest. Subjective Allergies: Coded Allergies: No Known Allergies (Unverified , 05/22/18) Subjective AFVSS on BiPAP awake and alert no cough no SOB no FC no labs this am Objective Last 24 Hour Vital Signs Date Time Temp Pulse Resp B/P (MAP) Pulse Ox O2 Delivery O2 Flow Rate FiO2 05/23/18 13:42 92 18 95 Venturi Mask 10.0 45 05/23/18 13:34 92 18 90 Venturi Mask 10.0 45 05/23/18 12:00 40 05/23/18 12:00 98.9 107 22 114/66 (82) 92 05/23/18 12:00 Bi-pap 7.0 05/23/18 12:00 99 05/23/18 11:54 98.9 05/23/18 08:01 99.7 108 22 131/76 (94) 90 05/23/18 08:00 109 05/23/18 08:00 40 05/23/18 08:00 Bi-pap 7.0 05/23/18 07:17 113 24 91 Venturi Mask 10.0 45 05/23/18 07:09 114 16 89 Venturi Mask 10.0 45 05/23/18 05:07 99 38 92 Facial 40 05/23/18 04:00 98.9 107 32 115/69 (84) 96 05/23/18 04:00 107 05/23/18 04:00 Bi-pap 7.0 05/23/18 04:00 40 05/23/18 02:47 104 37 93 Facial 40 05/23/18 01:12 101 38 94 Facial 40 05/23/18 00:00 108 05/23/18 00:00 Bi-pap 7.0 05/23/18 00:00 99.5 110 28 124/66 (85) 95 05/23/18 00:00 28 05/22/18 23:21 104 35 98 Facial 50 05/22/18 23:03 Bi-pap 10.0 05/22/18 21:19 104 24 97 Facial 80 05/22/18 20:00 101.7 114 37 130/69 (89) 96 05/22/18 19:45 100 24 97 Facial 45 05/22/18 19:13 98.1 118 32 120/95 100 Bi-pap 45 05/22/18 18:17 98.2 115 23 109/65 100 10.0 45 05/22/18 17:18 80 18 100 Facial 45 05/22/18 15:48 98.0 101 18 121/63 100 Bi-pap 10.0 60 05/22/18 15:42 96 22 100 Bi-pap 60 05/22/18 15:32 97 20 100 Bi-pap 60 05/22/18 15:32 97 20 Bi-pap 60 05/22/18 15:15 95 18 100 Facial 50 General Appearance: no acute distress, other - on BiPAP HEENT: normocephalic, atraumatic, anicteric, mucous membranes moist, other - BiPAP Respiratory/Chest: rhonchi Cardiovascular: normal peripheral pulses, normal rate, regular rhythm Abdomen: normal bowel sounds, soft, non tender, no organomegaly, non distended , no mass Extremities: no cyanosis, no clubbing, no edema Microbiology Date/Time Source Procedure Growth Status 05/22/18 13:00 Blood Blood Culture - Preliminary Resulted 05/22/18 13:00 Nasal Nares Influenza Types A,B Antigen (JALEESA) - Final Complete 05/22/18 13:05 Urine,Clean Catch Urine Culture - Preliminary Resulted 05/22/18 16:07 Rectum Received Laboratory Tests 05/22/18 19:44: Arterial Blood pH 7.362, Arterial Blood Partial Pressure CO2 57.0*H, Arterial Blood Partial Pressure O2 44.8*L, Arterial Blood HCO3 31.6H, Arterial Blood Oxygen Saturation 81.5*L, Arterial Blood Base Excess 4.5H, Rahul Test Positive 05/23/18 03:05: Sodium Level 141, Potassium Level 4.1, Chloride Level 103, Carbon Dioxide Level 34H, Anion Gap 4L, Blood Urea Nitrogen 10, Creatinine 0.7, Estimat Glomerular Filtration Rate > 60, Glucose Level 102, Calcium Level 9.1, Troponin I 0.000, C- Reactive Protein, Quantitative 15.8H, Pro-B-Type Natriuretic Peptide 212H, Free Thyroxine 1.13, Valproic Acid (Depakene) Level 55 Current Medications Medications (Trade) Dose Ordered Sig/Salty Route PRN Reason Start Time Stop Time Status Last Admin Dose Admin Acetaminophen (Tylenol) 500 mg Q4H PRN ORAL Mild Pain/Temp > 100.5 05/23/18 07:30 06/22/18 07:29 05/23/18 11:24 Albuterol/ Ipratropium (Albuterol/ Ipratropium) 3 ml Q4H PRN HHN Shortness of Breath 05/22/18 19:45 05/27/18 19:44 Albuterol/ Ipratropium (Albuterol/ Ipratropium) 3 ml Q6HRT HHN 05/23/18 01:00 05/28/18 00:59 05/23/18 13:33 Cefepime HCl 1 gm/ Dextrose 55 ml @ 110 mls/hr EVERY 12 HOURS IVPB 05/22/18 21:00 05/29/18 20:59 05/23/18 09:16 Fluoxetine HCl (PROzac) 20 mg DAILY ORAL 05/23/18 11:45 06/22/18 11:44 2/5/19 12:36 Furosemide (Lasix) 40 mg DAILY IV 05/23/18 09:00 06/22/18 08:59 05/23/18 09:15 Heparin Sodium (Porcine) (Heparin 5000 units/ml) 5,000 units EVERY 12 HOURS SUBQ 05/22/18 21:00 06/21/18 20:59 05/23/18 09:24 Olanzapine (ZyPREXA) 10 mg BEDTIME ORAL 05/23/18 21:00 06/22/18 20:59 Rory Membreno MD May 23, 2018 14:59
[2018-05-23] MEDS ORDERED: Isovue-370 150ml vial INJ PRN (15:00)
--- NOTE | 2018-05-23 15:00 | Consultation ---
DATE OF CONSULTATION: 05/23/2018 INFECTIOUS DISEASE CONSULTATION CONSULTING PHYSICIAN: Migel Cohen M.D. PRIMARY ATTENDING PHYSICIAN: Margot Dutta M.D. REASON FOR CONSULT: COPD exacerbation. HISTORY OF PRESENT ILLNESS: This is a 67-year-old white female who is a board and care resident admitted with shortness of breath. The patient had marked leukocytosis, respiratory failure with hypercapnia. PAST MEDICAL HISTORY: Significant for hypertension, hyperlipidemia, COPD, hypothyroidism, gastroesophageal reflux disorder, and schizoaffective disorder. ALLERGIES: No known drug allergies. MEDICATIONS: Olanzapine, fluoxetine, Lasix, Tylenol, albuterol and ipratropium inhalers, cefepime, and heparin. SOCIAL HISTORY: Former smoker. Board and care resident. Denies alcohol or drug abuse. REVIEW OF SYSTEMS: No fever. No chills. She has some dry mouth. Nonproductive cough. No nausea. No vomiting. No diarrhea. No problem passing urine. PHYSICAL EXAMINATION: VITAL SIGNS: T-max is 101.7, current temperature 98.9, pulse 108, and blood pressure 131/76. GENERAL APPEARANCE: No acute distress. HEAD AND NECK: Dry mouth. Getting oxygen by mask. HEART: Tachycardic. LUNGS: Clear. Decreased sounds. ABDOMEN: Soft and nontender. EXTREMITIES: No edema. NEUROLOGIC: Awake and alert, slow to response. LABORATORY AND DIAGNOSTIC DATA: WBC is 16.1, hemoglobin 15.9, hematocrit 47.5, and platelets 231,000. Sodium 141, potassium 4.1, chloride 103, bicarb 34, BUN 10, and creatinine 0.7. Glucose 102. Blood gas showed pH of 7.362, pCO2 of 57, pO2 of 44, O2 saturation of 81.5%. Influenza A and B are negative. Urine culture is pending. Chest x-ray, no acute disease. CT scan of the head, no acute intracranial bleeding, mass effect, or edema. Mild atrophy. IMPRESSION: Chronic obstructive pulmonary disease exacerbation, fever and leukocytosis; schizoaffective disorder, hypothyroidism, hyperlipidemia, and hypertension. RECOMMENDATION: We will continue with the current antibiotic of cefepime. We will follow up the cultures. At the end of my exam, I thank Dr. Dutta for involving me in the care of this patient. Migel Cohen M.D. DR: ARMIN JOB#: [id number] CC:
--- NOTE | 2018-05-23 15:00 | NUR ---
NURSE NOTES: Start 24 hours urine collection.
--- NOTE | 2018-05-23 15:30 | Cardiac Electrophysiology PN ---
Assessment/Plan Assessment/Plan 1. Acute shortness of breath. The patient with COPD. On BIPAP and Abx per Dr. Membreno as well as Infectious Disease. Ruled out for NC. EF 65% 2. Elevated white count, likely pneumonia, on BiPAP. Antibiotic per Dr. Cohen. 3. History of psychosis. 4. Sinus tach due to PNA. No fib DW RN Subjective Subjective Was on BIPAP last night. Off of BIPAP now. RN at bedside. Sinus tach Objective Last 24 Hour Vital Signs Date Time Temp Pulse Resp B/P (MAP) Pulse Ox O2 Delivery O2 Flow Rate FiO2 05/23/18 13:42 92 18 95 Venturi Mask 10.0 45 05/23/18 13:34 92 18 90 Venturi Mask 10.0 45 05/23/18 12:00 40 05/23/18 12:00 98.9 107 22 114/66 (82) 92 05/23/18 12:00 Bi-pap 7.0 05/23/18 12:00 99 05/23/18 11:54 98.9 05/23/18 08:01 99.7 108 22 131/76 (94) 90 05/23/18 08:00 109 05/23/18 08:00 40 05/23/18 08:00 Bi-pap 7.0 05/23/18 07:17 113 24 91 Venturi Mask 10.0 45 05/23/18 07:09 114 16 89 Venturi Mask 10.0 45 05/23/18 05:07 99 38 92 Facial 40 05/23/18 04:00 98.9 107 32 115/69 (84) 96 05/23/18 04:00 107 05/23/18 04:00 Bi-pap 7.0 05/23/18 04:00 40 05/23/18 02:47 104 37 93 Facial 40 05/23/18 01:12 101 38 94 Facial 40 05/23/18 00:00 108 05/23/18 00:00 Bi-pap 7.0 05/23/18 00:00 99.5 110 28 124/66 (85) 95 05/23/18 00:00 28 05/22/18 23:21 104 35 98 Facial 50 05/22/18 23:03 Bi-pap 10.0 05/22/18 21:19 104 24 97 Facial 80 05/22/18 20:00 101.7 114 37 130/69 (89) 96 05/22/18 19:45 100 24 97 Facial 45 05/22/18 19:13 98.1 118 32 120/95 100 Bi-pap 45 05/22/18 18:17 98.2 115 23 109/65 100 10.0 45 05/22/18 17:18 80 18 100 Facial 45 05/22/18 15:48 98.0 101 18 121/63 100 Bi-pap 10.0 60 05/22/18 15:42 96 22 100 Bi-pap 60 05/22/18 15:32 97 20 100 Bi-pap 60 05/22/18 15:32 97 20 Bi-pap 60 Laboratory Tests Test 05/22/18 19:44 05/23/18 03:05 Arterial Blood pH 7.362 (7.350-7.450) Arterial Blood Partial Pressure CO2 57.0 mmHg (35.0-45.0) *H Arterial Blood Partial Pressure O2 44.8 mmHg (75.0-100.0) Arterial Blood HCO3 31.6 mmol/L (22.0-26.0) H Arterial Blood Oxygen Saturation 81.5 % (95-100) *L Arterial Blood Base Excess 4.5 (-2-2) H Rahul Test Positive Sodium Level 141 MMOL/L (136-145) Potassium Level 4.1 MMOL/L (3.5-5.1) Chloride Level 103 MMOL/L (98-107) Carbon Dioxide Level 34 MMOL/L (21-32) H Anion Gap 4 mmol/L (5-15) L Blood Urea Nitrogen 10 mg/dL (7-18) Creatinine 0.7 MG/DL (0.55-1.30) Estimat Glomerular Filtration Rate > 60 mL/min (>60) Glucose Level 102 MG/DL (74-106) Calcium Level 9.1 MG/DL (8.5-10.1) Troponin I 0.000 ng/mL (0.000-0.056) C-Reactive Protein, Quantitative 15.8 mg/dL (0.00-0.90) H Pro-B-Type Natriuretic Peptide 212 pg/mL (0-125) H Free Thyroxine 1.13 NG/DL (0.76-1.46) Valproic Acid (Depakene) Level 55 MCG/ML (50-100) Microbiology Date/Time Source Procedure Growth Status 05/22/18 13:00 Blood Blood Culture - Preliminary Resulted 05/22/18 13:00 Nasal Nares Influenza Types A,B Antigen (JALEESA) - Final Complete 05/22/18 13:05 Urine,Clean Catch Urine Culture - Preliminary Resulted 05/22/18 16:07 Rectum Received Objective HEAD AND NECK: No JVD. LUNGS: Coarse rhonchi. CARDIOVASCULAR: Tachy regular S1 and S2 no M ABDOMEN: Soft. EXTREMITIES: No pitting edema. Zane Ocampo MD May 23, 2018 15:30
--- NOTE | 2018-05-23 16:05 | NUR ---
NURSE NOTES: Dr. Membreno gave us order for CTA chest with contrast. Patient has no family member in the chart, also she is not alert and oriented enough to signed the consent. Informed Dr. Membreno and Dr. Virk.
--- NOTE | 2018-05-23 16:45 | Consultation ---
DATE OF CONSULTATION: 05/23/2018 PAIN MANAGEMENT CONSULTATION CONSULTING PHYSICIAN: Handy Garcia M.D. REFERRING PHYSICIAN: Margot Dutta M.D. PHYSICIAN [employer] COMMANDER: Priscilla Oconnor CHIEF COMPLAINT: Shortness of breath. HISTORY OF PRESENT ILLNESS: The patient is a 67-year-old female who is being seen on the [facility] for initial pain management consultation. The patient was residing in a [facility], had unwitnessed fall and was found to have respiratory failure, has a history of COPD, hypertension, hyperlipidemia, and psychiatric disorder. At this time, the patient is in bed, no signs of pain or distress with BiPAP to be applied as per bilingual receptionist. Again, she is denying any pain or discomfort, and is able to move all her upper and lower extremities with no distress for signs of pain. PAST MEDICAL HISTORY: Hypertension, hyperlipidemia, COPD, hypothyroidism, GERD, psychiatric disorder. SOCIAL HISTORY: She is former smoker. Denies alcohol abuse and IV drug abuse. ALLERGIES: No known drug allergies. MEDICATIONS: Amlodipine, atorvastatin, divalproex, Prolixin, Synthroid, lorazepam, metoprolol, olanzapine, omeprazole, temazepam. REVIEW OF SYSTEMS: Denies rash, fever, chills, sweating, dizziness, drowsiness, blurred vision, sore throat, change in hearing or weight. No nausea, vomiting, diarrhea, or blood in the stool or urine. No bowel or bladder incontinence. No dysuria. She is not complaining of pain at this time. PHYSICAL EXAMINATION: GENERAL: Alert, awake, and oriented. VITAL SIGNS: Blood pressure 114/66, heart rate 107, oxygen saturation 92%, respiratory rate 22. HEENT: PERRLA. NECK: Range of motion is full in all directions. No tenderness to paracervical muscles. No adenopathy. LUNGS: Decreased breath sounds bilaterally. HEART: Regular. ABDOMEN: Benign. BACK: Range of motion is in flexion and extension. EXTREMITIES: Upper and lower extremity range of motion is full in all directions. No cyanosis. No clubbing. No edema. Sensory is intact. Reflexes are not obtainable. No adenopathy. ASSESSMENT AND PLAN: This is a 67-year-old female with COPD exacerbation, status post unwitnessed fall, osteoarthritis. At this time, the patient will be continued on Tylenol tablet every 4 hours as needed for pain. The patient was discussed with Dr. Garcia and Dr. Garcia concurred. We will follow the patient. Thank you very much for the courtesy of this consultation. Handy Garcia M.D. SUSAN Oconnor DR: Chauncey JOB#: [id number] CC:
--- NOTE | 2018-05-23 17:30 | Consultation ---
History of Present Illness General Date patient seen: May 23, 2018 Chief Complaint: Dyspnea/Respdistress Present Illness Allergies: Coded Allergies: No Known Allergies (Unverified , 05/22/18) Medication History Scheduled Amlodipine Besylate* (Amlodipine Besylate*), 10 MG ORAL DAILY, (Reported) Atorvastatin Calcium* (Atorvastatin Calcium*), 10 MG ORAL BEDTIME, (Reported) Divalproex Sodium (Divalproex Sodium Er), 500 MG PO BID, (Reported) Fluphenazine Hcl* (Prolixin*), 5 MG ORAL DAILY, (Reported) Fluphenazine Hcl* (Prolixin*), 10 MG ORAL HS, (Reported) Levothyroxine Sodium (Synthroid), 50 MCG ORAL DAILY, (Reported) Levothyroxine Sodium* (Levothyroxine Sodium*), 50 MCG ORAL AM, (Reported) Lorazepam* (Lorazepam*), 1 MG ORAL Q4H, (Reported) Lorazepam* (Lorazepam*), 2 MG ORAL Q4HR, (Reported) Metoprolol Succinate* (Metoprolol Succinate*), 100 MG ORAL DAILY, (Reported) Olanzapine (Olanzapine Odt), 10 MG PO DAILY, (Reported) Omeprazole (Omeprazole), 20 MG ORAL DAILY, (Reported) Temazepam (Temazepam*), 15 MG ORAL BEDTIME, (Reported) Miscellaneous Medications Unable to Obtain Medications (Unable To Obtain Meds), (Reported) Patient History Healthcare decision maker Resuscitation status Full Code Advanced Directive on File Physical Exam Last 24 Hour Vital Signs Date Time Temp Pulse Resp B/P (MAP) Pulse Ox O2 Delivery O2 Flow Rate FiO2 05/23/18 16:00 99.6 99 20 128/70 (89) 96 05/23/18 16:00 Bi-pap 7.0 05/23/18 16:00 40 05/23/18 13:42 92 18 95 Venturi Mask 10.0 45 05/23/18 13:34 92 18 90 Venturi Mask 10.0 45 05/23/18 12:00 40 05/23/18 12:00 98.9 107 22 114/66 (82) 92 05/23/18 12:00 Bi-pap 7.0 05/23/18 12:00 99 05/23/18 11:54 98.9 05/23/18 08:01 99.7 108 22 131/76 (94) 90 05/23/18 08:00 109 05/23/18 08:00 40 05/23/18 08:00 Bi-pap 7.0 05/23/18 07:17 113 24 91 Venturi Mask 10.0 45 05/23/18 07:09 114 16 89 Venturi Mask 10.0 45 05/23/18 05:07 99 38 92 Facial 40 05/23/18 04:00 98.9 107 32 115/69 (84) 96 05/23/18 04:00 107 05/23/18 04:00 Bi-pap 7.0 05/23/18 04:00 40 05/23/18 02:47 104 37 93 Facial 40 05/23/18 01:12 101 38 94 Facial 40 05/23/18 00:00 108 05/23/18 00:00 Bi-pap 7.0 05/23/18 00:00 99.5 110 28 124/66 (85) 95 05/23/18 00:00 28 05/22/18 23:21 104 35 98 Facial 50 05/22/18 23:03 Bi-pap 10.0 05/22/18 21:19 104 24 97 Facial 80 05/22/18 20:00 101.7 114 37 130/69 (89) 96 05/22/18 19:45 100 24 97 Facial 45 05/22/18 19:13 98.1 118 32 120/95 100 Bi-pap 45 05/22/18 18:17 98.2 115 23 109/65 100 10.0 45 05/22/18 17:18 80 18 100 Facial 45 Laboratory Tests Test 05/22/18 19:44 05/23/18 03:05 Arterial Blood pH 7.362 (7.350-7.450) Arterial Blood Partial Pressure CO2 57.0 mmHg (35.0-45.0) *H Arterial Blood Partial Pressure O2 44.8 mmHg (75.0-100.0) Arterial Blood HCO3 31.6 mmol/L (22.0-26.0) H Arterial Blood Oxygen Saturation 81.5 % (95-100) *L Arterial Blood Base Excess 4.5 (-2-2) H Rahul Test Positive Sodium Level 141 MMOL/L (136-145) Potassium Level 4.1 MMOL/L (3.5-5.1) Chloride Level 103 MMOL/L (98-107) Carbon Dioxide Level 34 MMOL/L (21-32) H Anion Gap 4 mmol/L (5-15) L Blood Urea Nitrogen 10 mg/dL (7-18) Creatinine 0.7 MG/DL (0.55-1.30) Estimat Glomerular Filtration Rate > 60 mL/min (>60) Glucose Level 102 MG/DL (74-106) Calcium Level 9.1 MG/DL (8.5-10.1) Troponin I 0.000 ng/mL (0.000-0.056) C-Reactive Protein, Quantitative 15.8 mg/dL (0.00-0.90) H Pro-B-Type Natriuretic Peptide 212 pg/mL (0-125) H Free Thyroxine 1.13 NG/DL (0.76-1.46) Valproic Acid (Depakene) Level 55 MCG/ML (50-100) Height (Feet): 5 Height (Inches): 5.00 Weight (Pounds): 190 Medications Current Medications Medications (Trade) Dose Ordered Sig/Salty Route PRN Reason Start Time Stop Time Status Last Admin Dose Admin Acetaminophen (Tylenol) 500 mg Q4H PRN ORAL Mild Pain/Temp > 100.5 05/23/18 07:30 06/22/18 07:29 05/23/18 11:24 Albuterol/ Ipratropium (Albuterol/ Ipratropium) 3 ml Q4H PRN HHN Shortness of Breath 05/22/18 19:45 05/27/18 19:44 Albuterol/ Ipratropium (Albuterol/ Ipratropium) 3 ml Q6HRT HHN 05/23/18 01:00 05/28/18 00:59 05/23/18 13:33 Cefepime HCl 1 gm/ Dextrose 55 ml @ 110 mls/hr EVERY 12 HOURS IVPB 05/22/18 21:00 05/29/18 20:59 05/23/18 09:16 Fluoxetine HCl (PROzac) 20 mg DAILY ORAL 05/23/18 11:45 06/22/18 11:44 05/23/18 12:36 Furosemide (Lasix) 40 mg DAILY IV 05/23/18 09:00 06/22/18 08:59 05/23/18 09:15 Heparin Sodium (Porcine) (Heparin 5000 units/ml) 5,000 units EVERY 12 HOURS SUBQ 05/22/18 21:00 06/21/18 20:59 05/23/18 09:24 Iopamidol (Isovue-370 150ml) 150 ml NOW PRN INJ Radiology Procedure 05/23/18 15:00 05/25/18 14:59 Methylprednisolone Sodium Succinate (Solu-MEDROL) 60 mg DAILY IVP 05/24/18 09:00 06/23/18 08:59 Olanzapine (ZyPREXA) 10 mg BEDTIME ORAL 05/23/18 21:00 06/22/18 20:59 Assessment/Plan Assessment/Plan Hematology Consultation RFC: Elevated d-dimer REQ MD: Grace Dutta DOS: 05/23/18 ID 67y old female with a correction facility for low oxygen saturations. The patient herself has no specific complaints. The patient is sleepy but can answer basic yes or no questions. There is no fever or chills. There is no cough or congestion. There is no chest pain or shortness of breath. There are no other complaints. Noted to have a elevated d-dimer, pulm and heme were consulted. Allergies: No Known Allergies (Unverified , 05/22/18) Past Medical History: see triage record, HTN, psych hx Social History: Denies: smoking, alcohol use, drug use Reviewed Nursing Documentation: PMH: Agreed; PSxH: Agreed Past Medical History: No Stated History Review of systems: negative except mentioned in HPI Vital Signs Date Time Temp Pulse Resp B/P (MAP) Pulse Ox O2 Delivery O2 Flow Rate FiO2 05/22/18 12:38 98.4 98 30 109/61 83 Room Air 05/22/18 12:39 10.0 05/22/18 14:15 60 Sp02 EP Interpretation: reviewed, normal General Appearance: no apparent distress, GCS 15, non-toxic, other - sleepy Head: normocephalic, atraumatic Eyes: bilateral eye normal inspection, bilateral eye PERRL ENT: hearing grossly normal, normal pharynx, no angioedema, normal voice Neck: full range of motion, supple/symm/no masses Respiratory: chest non-tender, lungs clear, normal breath sounds Cardiovascular: regular rate, rhythm, no edema Gastrointestinal: normal bowel sounds, non tender Musculoskeletal: back normal, gait/station normal Laboratory Tests Test 05/22/18 19:44 05/23/18 03:05 Arterial Blood pH 7.362 (7.350-7.450) Arterial Blood Partial Pressure CO2 57.0 mmHg (35.0-45.0) *H Arterial Blood Partial Pressure O2 44.8 mmHg (75.0-100.0) Arterial Blood HCO3 31.6 mmol/L (22.0-26.0) H Arterial Blood Oxygen Saturation 81.5 % (95-100) *L Arterial Blood Base Excess 4.5 (-2-2) H Rahul Test Positive Sodium Level 141 MMOL/L (136-145) Potassium Level 4.1 MMOL/L (3.5-5.1) Chloride Level 103 MMOL/L (98-107) Carbon Dioxide Level 34 MMOL/L (21-32) H Anion Gap 4 mmol/L (5-15) L Blood Urea Nitrogen 10 mg/dL (7-18) Creatinine 0.7 MG/DL (0.55-1.30) Estimat Glomerular Filtration Rate > 60 mL/min (>60) Glucose Level 102 MG/DL (74-106) Calcium Level 9.1 MG/DL (8.5-10.1) Troponin I 0.000 ng/mL (0.000-0.056) C-Reactive Protein, Quantitative 15.8 mg/dL (0.00-0.90) H Pro-B-Type Natriuretic Peptide 212 pg/mL (0-125) H Free Thyroxine 1.13 NG/DL (0.76-1.46) Valproic Acid (Depakene) Level 55 MCG/ML (50-100) Assessment and Recs: # Leukocytosis - is likely related to infection/pna --> smear has been ordered --> esr and crp ordered as well ==> abx as per Dr. Cohen # Elevated d-dimer - r/o dvt of lower ext --> r/o pe as well [facility] cta study # Hypoxemia potentially copd related --> off bipap at this time --> bipap at night as per pulm # Hypercarbia # Benzodiazepine dependence # Psychosis # Sinus tach --> as per Dr. Ocampo The timing of this note does not necessarily reflect the time of the patient was seen. Greatly appreciate consultation! Jorje Troy MD May 23, 2018 17:30
--- NOTE | 2018-05-23 19:30 | NUR ---
NURSE NOTES: Received report from Sonny Camacho RN. Pt is sleeping in the bed w/o distress in Ventri mask, arousable by voice stimuli. HR 92 noted in the monitor. Purewick is applied, 24 hr urine collection bottle is ready at bedside in the ice. IV site is asymptomatic. Safety measures are applied with bed alarm on, bed in lowest position and side rails up x2, and breaks are engaged. Call light and side table are w/in reach. Will follow plans of care.
--- NOTE | 2018-05-23 19:48 | NUR ---
HAND-OFF: Report given to RAUL hurst.
--- NOTE | 2018-05-23 19:58 | NUR ---
CASE MANAGEMENT: REVIEW / IGLESIA FROM [facility] CC: DYSPNEA . RESP DISTRESS SI: HYPOXIA T 98.4 HR 98 RR 30 BP 109/61 SAT 100% BIPAP FIO2 60 WBC 16.1 ABG: PH 7.292 PCO2 63.9 PO2 73.6 HCO3 30.2 O2 SAT 93.2 IS: ALBUTEROL HHN X1 PATIENT ADMITTED TO STEP DOWN UNIT 05/22/2018 DCP: PATIENT IS FROM [facility]
--- NOTE | 2018-05-23 20:41 | General Progress Note ---
Assessment/Plan Assessment/Plan Assessment and Recs: # Leukocytosis - is likely related to infection/pna --> smear has been ordered --> esr and crp ordered as well ==> abx as per Dr. Cohen # Elevated d-dimer - r/o dvt of lower ext --> r/o pe as well [facility] cta study # Hypoxemia potentially copd related --> off bipap at this time --> bipap at night as per pulm # Hypercarbia # Benzodiazepine dependence # Psychosis # Sinus tach --> as per Dr. Ocampo The timing of this note does not necessarily reflect the time of the patient was seen. Greatly appreciate consultation! Subjective Constitutional: Denies: no symptoms, chills, diaphoresis, fever, malaise, weakness, other HEENT: Denies: no symptoms, eye pain, blurred vision, tearing, double vision, ear pain, ear discharge, nose pain, nose congestion, throat pain, throat swelling, mouth pain, mouth swelling, other Cardiovascular: Denies: no symptoms, chest pain, edema, irregular heart rate, lightheadedness, palpitations, syncope, other Respiratory: Denies: no symptoms, cough, orthopnea, shortness of breath, SOB with excertion, SOB at rest, sputum, stridor, wheezing, other Gastrointestinal/Abdominal: Denies: no symptoms, abdomen distended, abdominal pain, black stools, tarry stools, blood in stool, constipated, diarrhea, difficulty swallowing, nausea, poor appetite, poor fluid intake, rectal bleeding , vomiting, other Genitourinary: Denies: no symptoms, burning, discharge, frequency, flank pain, hematuria, incontinence, pain, urgency, other Neurologic/Psychiatric: Denies: no symptoms, anxiety, depressed, emotional problems, headache, numbness, paresthesia, pre-existing deficit, seizure, tingling, tremors, weakness, other Endocrine: Denies: no symptoms, excessive sweating, flushing, intolerance to cold, intolerance to heat, increased hunger, increased thirst, increased urine, unexplained weight gain, unexplained weight loss, other Allergies: Coded Allergies: No Known Allergies (Unverified , 05/22/18) Subjective 05/23: on venturi mask, no new changes, mild fever today, no chills Objective Last 24 Hour Vital Signs Date Time Temp Pulse Resp B/P (MAP) Pulse Ox O2 Delivery O2 Flow Rate FiO2 05/23/18 20:06 92 32 92 Facial 40 05/23/18 20:00 96 34 94 Bi-pap 40 05/23/18 19:50 91 35 92 Bi-pap 40 05/23/18 17:39 99.0 05/23/18 16:00 99.6 99 20 128/70 (89) 96 05/23/18 16:00 98 05/23/18 16:00 Bi-pap 7.0 05/23/18 16:00 40 05/23/18 13:42 92 18 95 Venturi Mask 10.0 45 05/23/18 13:34 92 18 90 Venturi Mask 10.0 45 05/23/18 12:00 40 05/23/18 12:00 98.9 107 22 114/66 (82) 92 05/23/18 12:00 Bi-pap 7.0 05/23/18 12:00 99 05/23/18 08:01 99.7 108 22 131/76 (94) 90 05/23/18 08:00 109 05/23/18 08:00 40 05/23/18 08:00 Bi-pap 7.0 05/23/18 07:17 113 24 91 Venturi Mask 10.0 45 05/23/18 07:09 114 16 89 Venturi Mask 10.0 45 05/23/18 05:07 99 38 92 Facial 40 05/23/18 04:00 98.9 107 32 115/69 (84) 96 05/23/18 04:00 107 05/23/18 04:00 Bi-pap 7.0 05/23/18 04:00 40 05/23/18 02:47 104 37 93 Facial 40 05/23/18 01:12 101 38 94 Facial 40 05/23/18 00:00 108 05/23/18 00:00 Bi-pap 7.0 05/23/18 00:00 99.5 110 28 124/66 (85) 95 05/23/18 00:00 28 05/22/18 23:21 104 35 98 Facial 50 05/22/18 23:03 Bi-pap 10.0 05/22/18 21:19 104 24 97 Facial 80 Intake and Output 05/22/18 05/23/18 18:59 06:59 # Voids 1 Laboratory Tests 05/23/18 03:05: Sodium Level 141, Potassium Level 4.1, Chloride Level 103, Carbon Dioxide Level 34H, Anion Gap 4L, Blood Urea Nitrogen 10, Creatinine 0.7, Estimat Glomerular Filtration Rate > 60, Glucose Level 102, Calcium Level 9.1, Troponin I 0.000, C- Reactive Protein, Quantitative 15.8H, Pro-B-Type Natriuretic Peptide 212H, Free Thyroxine 1.13, Valproic Acid (Depakene) Level 55 05/23/18 17:55: Arterial Blood pH 7.371, Arterial Blood Partial Pressure CO2 61.7*H, Arterial Blood Partial Pressure O2 56.5L, Arterial Blood HCO3 34.9H, Arterial Blood Oxygen Saturation 90.8L, Arterial Blood Base Excess 7.4H, Rahul Test Positive 05/23/18 18:00: Urine Opiates Screen Negative, Urine Barbiturates Screen Negative, Phencyclidine (PCP) Screen Negative, Urine Amphetamines Screen Negative, Urine Benzodiazepines Screen Negative, Urine Cocaine Screen Negative, Urine Marijuana (THC) Screen Negative Height (Feet): 5 Height (Inches): 5.00 Weight (Pounds): 190 Objective General Appearance: no apparent distress, GCS 15, non-toxic, other - sleepy Head: normocephalic, atraumatic Eyes: bilateral eye normal inspection, bilateral eye PERRL ENT: hearing grossly normal, normal pharynx, no angioedema, normal voice Neck: full range of motion, supple/symm/no masses Respiratory: chest non-tender, lungs clear, normal breath sounds Cardiovascular: regular rate, rhythm, no edema Gastrointestinal: normal bowel sounds, non tender Musculoskeletal: back normal, gait/station normal Jorje Troy MD May 23, 2018 20:41
[2018-05-23] MEDS: OLANZapine 10mg tab ORAL SCH (21:26)
[2018-05-24] VITALS: BP 130/69
[2018-05-24] MEDS: Albuterol/Ipratropium 3ml neb HHN SCH ×4 (01:27→19:18)
--- NOTE | 2018-05-24 02:30 | History and Physical Report ---
DATE OF ADMISSION: 05/22/2018 HISTORY OF PRESENT ILLNESS: The patient is admitted for hypoxia, congestion, rule out pneumonia, status post fall, confused, AMS. The patient is lethargic, however, opens eyes, unable to go back to sleep again. The patient is ataxic. Denies any pain at this point, very confused. The patient is admitted to rule out pneumonia as well. Again, the patient is delirious at this point, cannot get any reliable history. She is status post fall and ataxia at the assisted living. Denies shortness of breath. Denies cough. Denies fever or chills. Denies orthopnea. Denies chest pain. PAST MEDICAL HISTORY: Significant for anxiety, hypertension, psychosis, hypothyroidism, GERD, insomnia. PAST SURGICAL HISTORY: Denies. ALLERGIES: No known allergies. SOCIAL HISTORY: He has a history of smoking. History of alcohol abuse. Denies history of drug abuse. Lives in assisted living. MEDICATIONS: Depakote, Prolixin, lorazepam, olanzapine, omeprazole. FAMILY HISTORY: Noncontributory. REVIEW OF SYSTEMS: HEENT: Denies headaches. RESPIRATORY: Denies shortness of breath. Denies cough. CARDIOVASCULAR: Denies chest pain. Does have shortness of breath. GASTROINTESTINAL: Denies nausea, vomiting, or diarrhea. EXTREMITIES: Denies pain. CENTRAL NERVOUS SYSTEM: No change in vision or speech pattern, feels very weak; however, is delirious at this point, an unreliable historian at this point due to the acute onset of confusion. PHYSICAL EXAMINATION: VITAL SIGNS: Temperature 99.6, pulse is 99, blood pressure is 128/70. HEENT: PERRLA. NECK: Supple. No lymphadenopathy. CHEST: Clear to auscultation. No wheezing. CARDIOVASCULAR: Regular rate and rhythm. ABDOMEN: Soft. Positive bowel sounds. No organomegaly. EXTREMITIES: Has 1+ edema. Reflexes equal on both sides. NEUROLOGIC: The patient responds to noxious stimuli and talks in short sentences and goes back to sleep easily, but is easily arousable as well. Oriented x2. LABORATORY AND DIAGNOSTIC DATA: WBC of 16.1, hemoglobin 15.1, platelets 231. Sodium 140, potassium 3.7, BUN of 12, creatinine 0.8, and glucose of 125. Troponin of 0.019. ASSESSMENT/PLAN: Hypoxia, congestion, rule out pneumonia, status post fall, ataxia, AMS, delirium, and AMS. Dr. Bolton, will see the patient for the management of the hypoxia, AMS, pneumonia, rule out sepsis as well as the patient is on a lot of anxiety medications and does have anxiety and depression, so Dr. Marshall will help with the management of that. Dr. Bolton has been consulted for AMS, rule out stroke versus metabolic encephalopathy. Dr. Membreno will help with management of pneumonia. Margot Dutta M.D. DR: Sherif JOB#: [id number] CC:
--- NOTE | 2018-05-24 03:32 | NUR ---
NURSE NOTES: Pt was cleaned, dried, and repositioned. Ventri mask is applied and O2 sat is 92%. Pt removed purewick cath continuously. Currently, pt is sleeping, no distress noted . Will continue to monitor.
[2018-05-24 04:00] VITALS: BP 122/63
--- NOTE | 2018-05-24 04:24 | NUR ---
NURSE NOTES: Pt was desaturated to 88% in Venturi mask 10L. BiPap is on by RT. O2Sat increased to 93%. Will continue to monitor.
[2018-05-24 05:39] LABS: HEMATOCRIT 42.5 % (37.0-47.0); HEMOGLOBIN 14.7 G/DL (12.0-16.0); MEAN CORPUSCULAR VOLUME 92 FL (80-99); PLATELET COUNT 243 K/UL (150-450); RED BLOOD COUNT 4.59 M/UL (4.20-5.40); RED CELL DISTRIBUTION WIDTH 11.3 % (11.6-14.8); WHITE BLOOD COUNT 19.7 K/UL (4.8-10.8)
[2018-05-24 06:44] LABS: ALANINE AMINOTRANSFERASE 35 U/L (12-78); ALBUMIN 2.5 G/DL (3.4-5.0); ALBUMIN/GLOBULIN RATIO 0.6 (1.0-2.7); ALKALINE PHOSPHATASE 115 U/L (46-116); ANION GAP 10 mmol/L (5-15); ASPARTATE AMINO TRANSFERASE 29 U/L (15-37); BILIRUBIN,TOTAL 0.6 MG/DL (0.2-1.0); BLOOD UREA NITROGEN 17 mg/dL (7-18); CALCIUM 9.3 MG/DL (8.5-10.1); CARBON DIOXIDE 30 MMOL/L (21-32); CHLORIDE 98 MMOL/L (98-107); CHOLESTEROL 105 MG/DL (< 200); CREATININE 0.7 MG/DL (0.55-1.30); GAMMA GLUTAMYL TRANSPEPTIDASE 62 U/L (5-85); HDL CHOLESTEROL 30 MG/DL (40-60); PHOSPHORUS 2.8 MG/DL (2.5-4.9); POTASSIUM 4.1 MMOL/L (3.5-5.1); SODIUM 138 MMOL/L (136-145); TRIGLYCERIDES 124 MG/DL (30-150)
--- NOTE | 2018-05-24 06:56 | NUR ---
NURSE NOTES: WBC 19.7 resulted in this morning from 16.1 on 05/22, called and left message to DR. Dutta @([phone]). Awaiting call back. Addendum: 05/24/18 at 0757 by CARRIE ROYAL RN Dr. Dutta call back and to call Dr. Filipe Cohen. Reported WBC 19.7 and Temp 99.[address] Oleksandr Cohen. NNO at this time.
--- NOTE | 2018-05-24 07:25 | NUR ---
HAND-OFF: Report given to Ghulam Garza RN. Endorsed plans of care.
--- NOTE | 2018-05-24 07:30 | NUR ---
NURSE NOTES: Received report from RAUL Sena. Patient asleep in bed, easily arousable, alert and oriented. On Bipap 12/5, FIO2 60%. No acute distress noted. Pt kept NPO. SR 90s on the cardiac catheterization technologist. Bed in lowest position. Side rails upx2, bed alarm on. Call light within reach. Will continue to monitor.
--- NOTE | 2018-05-24 07:39 | NUR ---
RESPIRATORY NOTE: Patient found on BiPAP with current ordered settings. Released face mask to reveal skin to be intact. Re-tapped face with foam tape for extra skin protection. Inline breathing treatment was given with no adverse reaction noted. BiPAP is connected to a red outlet. Will continue to monitor.
[2018-05-24 08:00] VITALS: BP 125/62
--- NOTE | 2018-05-24 08:49 | General Progress Note ---
Assessment/Plan Assessment/Plan (1) S/p fall (2) COPD Exacerbation (3) OA Patient to be continued on Tylenol D/w Dr. Garcia and he concurred. Subjective Date patient seen: May 24, 2018 Time patient seen: 07:15 - am Constitutional: Reports: weakness HEENT: Reports: no symptoms Cardiovascular: Reports: no symptoms Respiratory: Reports: shortness of breath Gastrointestinal/Abdominal: Reports: no symptoms Genitourinary: Reports: no symptoms Neurologic/Psychiatric: Reports: weakness Endocrine: Reports: no symptoms Hematologic/Lymphatic: Reports: no symptoms Allergies: Coded Allergies: No Known Allergies (Unverified , 05/22/18) Subjective Patient is in bed has reports no pain at this time Objective Last 24 Hour Vital Signs Date Time Temp Pulse Resp B/P (MAP) Pulse Ox O2 Delivery O2 Flow Rate FiO2 05/24/18 07:39 98 28 97 Bi-pap 60 05/24/18 07:30 96 25 94 Full Face 60 05/24/18 07:29 96 25 94 Bi-pap 60 05/24/18 05:26 100 28 92 Facial 60 05/24/18 04:00 40 05/24/18 04:00 99.2 95 22 122/63 (82) 95 05/24/18 04:00 Venturi Mask 10.0 05/24/18 03:31 89 92 05/24/18 03:21 95 05/24/18 01:30 94 34 92 Facial 40 05/24/18 01:27 108 36 95 Bi-pap 40 05/24/18 01:17 101 30 93 Bi-pap 40 05/24/18 00:00 10.0 05/24/18 00:00 99 05/24/18 00:00 Venturi Mask 10.0 05/24/18 00:00 98.7 101 22 130/69 (89) 92 05/23/18 23:00 84 92 05/23/18 20:06 92 32 92 Facial 40 05/23/18 20:00 96 34 94 Bi-pap 40 05/23/18 20:00 99.0 92 22 107/54 (71) 92 05/23/18 20:00 Venturi Mask 10.0 05/23/18 19:50 91 35 92 Bi-pap 40 05/23/18 19:35 93 05/23/18 17:39 99.0 05/23/18 16:00 99.6 99 20 128/70 (89) 96 05/23/18 16:00 98 05/23/18 16:00 Bi-pap 7.0 05/23/18 16:00 40 05/23/18 13:42 92 18 95 Venturi Mask 10.0 45 05/23/18 13:34 92 18 90 Venturi Mask 10.0 45 05/23/18 12:00 40 05/23/18 12:00 98.9 107 22 114/66 (82) 92 05/23/18 12:00 Bi-pap 7.0 05/23/18 12:00 99 Intake and Output 05/23/18 05/24/18 19:00 07:00 Intake Total 55 ml Output Total 400 ml Balance -400 ml 55 ml Intake IV Total 55 ml Output Urine Total 400 ml Laboratory Tests 05/23/18 17:55: Arterial Blood pH 7.371, Arterial Blood Partial Pressure CO2 61.7*H, Arterial Blood Partial Pressure O2 56.5L, Arterial Blood HCO3 34.9H, Arterial Blood Oxygen Saturation 90.8L, Arterial Blood Base Excess 7.4H, Rahul Test Positive 05/23/18 18:00: Urine Opiates Screen Negative, Urine Barbiturates Screen Negative, Phencyclidine (PCP) Screen Negative, Urine Amphetamines Screen Negative, Urine Benzodiazepines Screen Negative, Urine Cocaine Screen Negative, Urine Marijuana (THC) Screen Negative 05/24/18 03:00: White Blood Count 19.7H, Red Blood Count 4.59, Hemoglobin 14.7, Hematocrit 42.5 , Mean Corpuscular Volume 92, Mean Corpuscular Hemoglobin 32.1H, Mean Corpuscular Hemoglobin Concent 34.7, Red Cell Distribution Width 11.3L, Platelet Count 243, Mean Platelet Volume 5.5L, Neutrophils (%) (Auto) , Lymphocytes (%) (Auto) , Monocytes (%) (Auto) , Eosinophils (%) (Auto) , Basophils (%) (Auto) , Neutrophils % (Manual) [Pending], Lymphocytes % (Manual) [Pending], Platelet Estimate [Pending], Platelet Morphology [Pending], Sodium Level 138, Potassium Level 4.1, Chloride Level 98, Carbon Dioxide Level 30, Anion Gap 10, Blood Urea Nitrogen 17, Creatinine 0.7, Estimat Glomerular Filtration Rate > 60, Glucose Level 80, Hemoglobin A1c 6.0, Uric Acid 8.2H, Calcium Level 9.3, Phosphorus Level 2.8, Magnesium Level 1.6L, Total Bilirubin 0.6, Gamma Glutamyl Transpeptidase 62, Aspartate Amino Transf (AST/SGOT) 29, Alanine Aminotransferase (ALT/SGPT) 35, Alkaline Phosphatase 115, Troponin I 0.000, Pro-B-Type Natriuretic Peptide 186H, Total Protein 7.0, Albumin 2.5L, Globulin 4.5, Albumin/Globulin Ratio 0.6L, Triglycerides Level 124, Cholesterol Level 105, LDL Cholesterol 54, HDL Cholesterol 30L, Cholesterol/HDL Ratio 3.5, Vitamin B12 Level 924, Folate 40.6, Thyroid Stimulating Hormone (TSH) 1.921 Height (Feet): 5 Height (Inches): 5.00 Weight (Pounds): 179 General Appearance: no apparent distress, alert EENT: PERRL/EOMI Neck: non-tender, supple Cardiovascular: normal rate, regular rhythm Respiratory/Chest: decreased breath sounds Abdomen: non tender, soft Extremities: non-tender Edema: trace edema Neurologic: alert, oriented x 3 Skin: warm/dry Anjum Dumont May 24, 2018 08:49
[2018-05-24] MEDS: Cefepime HCl 1 GM in D5W 55 ML IVPB SCH ×2 (09:44→20:39)
[2018-05-24] MEDS: Solu-MEDROL 125mg Inj IVP SCH (09:44)
[2018-05-24] MEDS: Acetaminophen 500mg (ES) tab ORAL PRN (09:44)
[2018-05-24] MEDS: Heparin 5000 units/ml inj SUBQ SCH ×2 (09:45→20:43)
--- NOTE | 2018-05-24 10:00 | NUR ---
NURSE NOTES: Notified Dr. Membreno that pt unable to sign the consent for CTA chest with contrast and pt has no family. to document
--- NOTE | 2018-05-24 10:05 | NUR ---
NURSE NOTES: Dr. Membreno made aware that pt was desaturating 70-80% with venturi mask Fio2 55%, currently bipap 12/, Fio2 60%, saturating 97%. no new order at this time. ok to keep npo
--- NOTE | 2018-05-24 11:09 | NUR ---
Social Service Note NADJA spoke with Amee at [facility] [phone] to obtain contact information. Patient has been a resident in their facility since 11/30/17. Per Amee patient with no known family. Amee reviewed patient's chart and there is nothing on file of patient's previous facility. Patient is non-represented. MD to document, risk, benefits and outcomes and provide consent for procedure needed. NADJA discussed with charge nurse. Will continue to be available as needed.
--- NOTE | 2018-05-24 11:31 | NUR ---
NURSE NOTES: pt temp went down to 98.6, tylenol prn given and cooling measure provided.
--- NOTE | 2018-05-24 11:32 | General Progress Note ---
Assessment/Plan Assessment/Plan Assessment and Recs: # Leukocytosis - is likely related to infection/pna --> smear has been ordered --> esr and crp ordered as well ==> abx as per Dr. Cohen # Elevated d-dimer - r/o dvt of lower ext --> r/o pe as well [facility] cta study # Hypoxemia potentially copd related --> off bipap at this time --> bipap at night as per pulm # Hypercarbia # Benzodiazepine dependence # Psychosis # Sinus tach --> as per Dr. Ocampo The timing of this note does not necessarily reflect the time of the patient was seen. Greatly appreciate consultation! Subjective ROS Limited/Unobtainable: Yes Allergies: Coded Allergies: No Known Allergies (Unverified , 05/22/18) Subjective 05/23: on venturi mask, no new changes, mild fever today, no chills 05/24: Pt is seen by bedside, awake, comfortable, wbc trending up Objective Last 24 Hour Vital Signs Date Time Temp Pulse Resp B/P (MAP) Pulse Ox O2 Delivery O2 Flow Rate FiO2 05/24/18 10:39 90 21 96 Full Face 60 05/24/18 10:15 99.9 05/24/18 08:56 97 21 95 Full Face 60 05/24/18 08:00 Bi-pap 05/24/18 08:00 100.2 95 24 125/62 (83) 95 05/24/18 08:00 97 05/24/18 08:00 60 05/24/18 07:39 98 28 97 Bi-pap 60 05/24/18 07:30 96 25 94 Full Face 60 05/24/18 07:29 96 25 94 Bi-pap 60 05/24/18 05:26 100 28 92 Facial 60 05/24/18 04:00 40 05/24/18 04:00 99.2 95 22 122/63 (82) 95 05/24/18 04:00 Venturi Mask 10.0 05/24/18 03:31 89 92 05/24/18 03:21 95 05/24/18 01:30 94 34 92 Facial 40 05/24/18 01:27 108 36 95 Bi-pap 40 05/24/18 01:17 101 30 93 Bi-pap 40 05/24/18 00:00 10.0 05/24/18 00:00 99 05/24/18 00:00 Venturi Mask 10.0 05/24/18 00:00 98.7 101 22 130/69 (89) 92 05/23/18 23:00 84 92 05/23/18 20:06 92 32 92 Facial 40 05/23/18 20:00 96 34 94 Bi-pap 40 05/23/18 20:00 99.0 92 22 107/54 (71) 92 05/23/18 20:00 Venturi Mask 10.0 05/23/18 19:50 91 35 92 Bi-pap 40 05/23/18 19:35 93 05/23/18 16:00 99.6 99 20 128/70 (89) 96 05/23/18 16:00 98 05/23/18 16:00 Bi-pap 7.0 05/23/18 16:00 40 05/23/18 13:42 92 18 95 Venturi Mask 10.0 45 05/23/18 13:34 92 18 90 Venturi Mask 10.0 45 05/23/18 12:00 40 05/23/18 12:00 98.9 107 22 114/66 (82) 92 05/23/18 12:00 Bi-pap 7.0 05/23/18 12:00 99 Intake and Output 05/23/18 05/24/18 19:00 07:00 Intake Total 55 ml Output Total 400 ml Balance -400 ml 55 ml Intake IV Total 55 ml Output Urine Total 400 ml Laboratory Tests 05/23/18 17:55: Arterial Blood pH 7.371, Arterial Blood Partial Pressure CO2 61.7*H, Arterial Blood Partial Pressure O2 56.5L, Arterial Blood HCO3 34.9H, Arterial Blood Oxygen Saturation 90.8L, Arterial Blood Base Excess 7.4H, Rahul Test Positive 05/23/18 18:00: Urine Opiates Screen Negative, Urine Barbiturates Screen Negative, Phencyclidine (PCP) Screen Negative, Urine Amphetamines Screen Negative, Urine Benzodiazepines Screen Negative, Urine Cocaine Screen Negative, Urine Marijuana (THC) Screen Negative 05/24/18 03:00: White Blood Count 19.7H, Red Blood Count 4.59, Hemoglobin 14.7, Hematocrit 42.5 , Mean Corpuscular Volume 92, Mean Corpuscular Hemoglobin 32.1H, Mean Corpuscular Hemoglobin Concent 34.7, Red Cell Distribution Width 11.3L, Platelet Count 243, Mean Platelet Volume 5.5L, Neutrophils (%) (Auto) , Lymphocytes (%) (Auto) , Monocytes (%) (Auto) , Eosinophils (%) (Auto) , Basophils (%) (Auto) , Differential Total Cells Counted 100, Neutrophils % ( Manual) 66, Lymphocytes % (Manual) 9L, Monocytes % (Manual) 12H, Eosinophils % ( Manual) 0, Basophils % (Manual) 0, Band Neutrophils 13H, Platelet Estimate Adequate, Platelet Morphology Normal, Red Blood Cell Morphology Normal, Sodium Level 138, Potassium Level 4.1, Chloride Level 98, Carbon Dioxide Level 30, Anion Gap 10, Blood Urea Nitrogen 17, Creatinine 0.7, Estimat Glomerular Filtration Rate > 60, Glucose Level 80, Hemoglobin A1c 6.0, Uric Acid 8.2H, Calcium Level 9.3, Phosphorus Level 2.8, Magnesium Level 1.6L, Total Bilirubin 0.6, Gamma Glutamyl Transpeptidase 62, Aspartate Amino Transf (AST/SGOT) 29, Alanine Aminotransferase (ALT/SGPT) 35, Alkaline Phosphatase 115, Troponin I 0.000, Pro-B-Type Natriuretic Peptide 186H, Total Protein 7.0, Albumin 2.5L, Globulin 4.5, Albumin/Globulin Ratio 0.6L, Triglycerides Level 124, Cholesterol Level 105, LDL Cholesterol 54, HDL Cholesterol 30L, Cholesterol/HDL Ratio 3.5, Vitamin B12 Level 924, Folate 40.6, Thyroid Stimulating Hormone (TSH) 1.921 Height (Feet): 5 Height (Inches): 5.00 Weight (Pounds): 179 Objective General Appearance: no apparent distress, GCS 15, non-toxic, other - sleepy Head: normocephalic, atraumatic Eyes: bilateral eye normal inspection, bilateral eye PERRL ENT: hearing grossly normal, normal pharynx, no angioedema, normal voice Neck: full range of motion, supple/symm/no masses Respiratory: chest non-tender, lungs clear, normal breath sounds Cardiovascular: regular rate, rhythm, no edema Gastrointestinal: normal bowel sounds, non tender Musculoskeletal: back normal, gait/station normal Jorje Troy MD May 24, 2018 11:32
[2018-05-24 12:00] VITALS: BP 120/75
--- NOTE | 2018-05-24 12:25 | Infectious Diseases Prog Note ---
Assessment/Plan Assessment/Plan A; Chronic obstructive pulmonary disease exacerbation, fever and leukocytosis; schizoaffective disorder, hypothyroidism, hyperlipidemia, hypertension. P: Continue Cefepime Subjective ROS Limited/Unobtainable: No Constitutional: Reports: fever Respiratory: Reports: shortness of breath, dry cough Gastrointestinal/Abdominal: Reports: no symptoms Genitourinary: Reports: no symptoms Allergies: Coded Allergies: No Known Allergies (Unverified , 05/22/18) Objective Vital Signs Last 24 Hour Vital Signs Date Time Temp Pulse Resp B/P (MAP) Pulse Ox O2 Delivery O2 Flow Rate FiO2 05/24/18 12:00 Bi-pap 05/24/18 10:39 90 21 96 Full Face 60 05/24/18 10:15 99.9 05/24/18 08:56 97 21 95 Full Face 60 05/24/18 08:00 Bi-pap 05/24/18 08:00 100.2 95 24 125/62 (83) 95 05/24/18 08:00 97 05/24/18 08:00 60 05/24/18 07:39 98 28 97 Bi-pap 60 05/24/18 07:30 96 25 94 Full Face 60 05/24/18 07:29 96 25 94 Bi-pap 60 05/24/18 05:26 100 28 92 Facial 60 05/24/18 04:00 40 05/24/18 04:00 99.2 95 22 122/63 (82) 95 05/24/18 04:00 Venturi Mask 10.0 05/24/18 03:31 89 92 05/24/18 03:21 95 05/24/18 01:30 94 34 92 Facial 40 05/24/18 01:27 108 36 95 Bi-pap 40 05/24/18 01:17 101 30 93 Bi-pap 40 05/24/18 00:00 10.0 05/24/18 00:00 99 05/24/18 00:00 Venturi Mask 10.0 05/24/18 00:00 98.7 101 22 130/69 (89) 92 05/23/18 23:00 84 92 05/23/18 20:06 92 32 92 Facial 40 05/23/18 20:00 96 34 94 Bi-pap 40 05/23/18 20:00 99.0 92 22 107/54 (71) 92 05/23/18 20:00 Venturi Mask 10.0 05/23/18 19:50 91 35 92 Bi-pap 40 05/23/18 19:35 93 05/23/18 16:00 99.6 99 20 128/70 (89) 96 05/23/18 16:00 98 05/23/18 16:00 Bi-pap 7.0 05/23/18 16:00 40 05/23/18 13:42 92 18 95 Venturi Mask 10.0 45 05/23/18 13:34 92 18 90 Venturi Mask 10.0 45 Height (Feet): 5 Height (Inches): 5.00 Weight (Pounds): 179 HEENT: other - on BIPAP Respiratory/Chest: decreased breath sounds Cardiovascular: normal rate Abdomen: soft, non tender Extremities: no edema Neurologic/Psychiatric: alert, responsive Microbiology Date/Time Source Procedure Growth Status 05/22/18 13:00 Blood Blood Culture - Preliminary NO GROWTH AFTER 24 HOURS Resulted 05/22/18 13:00 Blood Blood Culture - Preliminary Staphylococcus Sp Coag Neg Resulted 05/22/18 13:00 Nasal Nares Influenza Types A,B Antigen (JALEESA) - Final Complete 05/22/18 13:05 Urine,Clean Catch Urine Culture - Preliminary Strep Species, Alpha Hemolytic Resulted 05/22/18 16:07 Rectum Received Laboratory Tests Test 05/23/18 17:55 05/23/18 18:00 05/24/18 03:00 Arterial Blood pH 7.371 (7.350-7.450) Arterial Blood Partial Pressure CO2 61.7 mmHg (35.0-45.0) *H Arterial Blood Partial Pressure O2 56.5 mmHg (75.0-100.0) L Arterial Blood HCO3 34.9 mmol/L (22.0-26.0) H Arterial Blood Oxygen Saturation 90.8 % (95-100) L Arterial Blood Base Excess 7.4 (-2-2) H Rahul Test Positive Urine Opiates Screen Negative (NEGATIVE) Urine Barbiturates Screen Negative (NEGATIVE) Phencyclidine (PCP) Screen Negative (NEGATIVE) Urine Amphetamines Screen Negative (NEGATIVE) Urine Benzodiazepines Screen Negative (NEGATIVE) Urine Cocaine Screen Negative (NEGATIVE) Urine Marijuana (THC) Screen Negative (NEGATIVE) White Blood Count 19.7 K/UL (4.8-10.8) H Red Blood Count 4.59 M/UL (4.20-5.40) Hemoglobin 14.7 G/DL (12.0-16.0) Hematocrit 42.5 % (37.0-47.0) Mean Corpuscular Volume 92 FL (80-99) Mean Corpuscular Hemoglobin 32.1 PG (27.0-31.0) H Mean Corpuscular Hemoglobin Concent 34.7 G/DL (32.0-36.0) Red Cell Distribution Width 11.3 % (11.6-14.8) L Platelet Count 243 K/UL (150-450) Mean Platelet Volume 5.5 FL (6.5-10.1) L Neutrophils (%) (Auto) % (45.0-75.0) Lymphocytes (%) (Auto) % (20.0-45.0) Monocytes (%) (Auto) % (1.0-10.0) Eosinophils (%) (Auto) % (0.0-3.0) Basophils (%) (Auto) % (0.0-2.0) Differential Total Cells Counted 100 Neutrophils % (Manual) 66 % (45-75) Lymphocytes % (Manual) 9 % (20-45) L Monocytes % (Manual) 12 % (1-10) H Eosinophils % (Manual) 0 % (0-3) Basophils % (Manual) 0 % (0-2) Band Neutrophils 13 % (0-8) H Platelet Estimate Adequate Platelet Morphology Normal Red Blood Cell Morphology Normal Sodium Level 138 MMOL/L (136-145) Potassium Level 4.1 MMOL/L (3.5-5.1) Chloride Level 98 MMOL/L (98-107) Carbon Dioxide Level 30 MMOL/L (21-32) Anion Gap 10 mmol/L (5-15) Blood Urea Nitrogen 17 mg/dL (7-18) Creatinine 0.7 MG/DL (0.55-1.30) Estimat Glomerular Filtration Rate > 60 mL/min (>60) Glucose Level 80 MG/DL (74-106) Hemoglobin A1c 6.0 % (4.3-6.0) Uric Acid 8.2 MG/DL (2.6-7.2) H Calcium Level 9.3 MG/DL (8.5-10.1) Phosphorus Level 2.8 MG/DL (2.5-4.9) Magnesium Level 1.6 MG/DL (1.8-2.4) L Total Bilirubin 0.6 MG/DL (0.2-1.0) Gamma Glutamyl Transpeptidase 62 U/L (5-85) Aspartate Amino Transf (AST/SGOT) 29 U/L (15-37) Alanine Aminotransferase (ALT/SGPT) 35 U/L (12-78) Alkaline Phosphatase 115 U/L (46-116) Troponin I 0.000 ng/mL (0.000-0.056) Pro-B-Type Natriuretic Peptide 186 pg/mL (0-125) H Total Protein 7.0 G/DL (6.4-8.2) Albumin 2.5 G/DL (3.4-5.0) L Globulin 4.5 g/dL Albumin/Globulin Ratio 0.6 (1.0-2.7) L Triglycerides Level 124 MG/DL (30-150) Cholesterol Level 105 MG/DL (< 200) LDL Cholesterol 54 mg/dL (<100) HDL Cholesterol 30 MG/DL (40-60) L Cholesterol/HDL Ratio 3.5 (3.3-4.4) Vitamin B12 Level 924 PG/ML (193-986) Folate 40.6 NG/ML (8.6-58.9) Thyroid Stimulating Hormone (TSH) 1.921 uiU/mL (0.358-3.740) Current Medications Medications (Trade) Dose Ordered Sig/Salty Route PRN Reason Start Time Stop Time Status Last Admin Dose Admin Acetaminophen (Tylenol) 500 mg Q4H PRN ORAL Mild Pain/Temp > 100.5 05/23/18 07:30 06/22/18 07:29 05/24/18 09:44 Albuterol/ Ipratropium (Albuterol/ Ipratropium) 3 ml Q4H PRN HHN Shortness of Breath 05/22/18 19:45 05/27/18 19:44 Albuterol/ Ipratropium (Albuterol/ Ipratropium) 3 ml Q6HRT HHN 05/23/18 01:00 05/28/18 00:59 05/24/18 07:29 Cefepime HCl 1 gm/ Dextrose 55 ml @ 110 mls/hr EVERY 12 HOURS IVPB 05/22/18 21:00 05/29/18 20:59 05/24/18 09:44 Fluoxetine HCl (PROzac) 20 mg DAILY ORAL 05/23/18 11:45 06/22/18 11:44 05/24/18 09:44 Furosemide (Lasix) 40 mg DAILY IV 05/23/18 09:00 06/22/18 08:59 05/24/18 09:45 Heparin Sodium (Porcine) (Heparin 5000 units/ml) 5,000 units EVERY 12 HOURS SUBQ 05/22/18 21:00 06/21/18 20:59 05/24/18 09:45 Iopamidol (Isovue-370 150ml) 150 ml NOW PRN INJ Radiology Procedure 05/23/18 15:00 05/25/18 14:59 Methylprednisolone Sodium Succinate (Solu-MEDROL) 60 mg DAILY IVP 05/24/18 09:00 06/23/18 08:59 05/24/18 09:44 Olanzapine (ZyPREXA) 10 mg BEDTIME ORAL 05/23/18 21:00 06/22/18 20:59 05/23/18 21:26 Migel Cohen MD May 24, 2018 12:25
--- NOTE | 2018-05-24 12:29 | General Progress Note ---
Assessment/Plan Problem List: (1) Schizoaffective disorder ICD Codes: F25.9 - Schizoaffective disorder, unspecified SNOMED: 94874280 Status: stable Assessment/Plan possible benzo od cont prozac cont zyprexa dc depakote Subjective Neurologic/Psychiatric: Reports: anxiety, depressed, emotional problems Allergies: Coded Allergies: No Known Allergies (Unverified , 05/22/18) Subjective the pt is calmer more alert she was not taking benzos urine tox negative for benzos Objective Last 24 Hour Vital Signs Date Time Temp Pulse Resp B/P (MAP) Pulse Ox O2 Delivery O2 Flow Rate FiO2 05/24/18 12:00 Bi-pap 05/24/18 12:00 99.9 92 23 120/75 (90) 96 05/24/18 10:39 90 21 96 Full Face 60 05/24/18 10:15 99.9 05/24/18 08:56 97 21 95 Full Face 60 05/24/18 08:00 Bi-pap 05/24/18 08:00 100.2 95 24 125/62 (83) 95 05/24/18 08:00 97 05/24/18 08:00 60 05/24/18 07:39 98 28 97 Bi-pap 60 05/24/18 07:30 96 25 94 Full Face 60 05/24/18 07:29 96 25 94 Bi-pap 60 05/24/18 05:26 100 28 92 Facial 60 05/24/18 04:00 40 05/24/18 04:00 99.2 95 22 122/63 (82) 95 05/24/18 04:00 Venturi Mask 10.0 05/24/18 03:31 89 92 05/24/18 03:21 95 05/24/18 01:30 94 34 92 Facial 40 05/24/18 01:27 108 36 95 Bi-pap 40 05/24/18 01:17 101 30 93 Bi-pap 40 05/24/18 00:00 10.0 05/24/18 00:00 99 05/24/18 00:00 Venturi Mask 10.0 05/24/18 00:00 98.7 101 22 130/69 (89) 92 05/23/18 23:00 84 92 05/23/18 20:06 92 32 92 Facial 40 05/23/18 20:00 96 34 94 Bi-pap 40 05/23/18 20:00 99.0 92 22 107/54 (71) 92 05/23/18 20:00 Venturi Mask 10.0 05/23/18 19:50 91 35 92 Bi-pap 40 05/23/18 19:35 93 05/23/18 16:00 99.6 99 20 128/70 (89) 96 05/23/18 16:00 98 05/23/18 16:00 Bi-pap 7.0 05/23/18 16:00 40 05/23/18 13:42 92 18 95 Venturi Mask 10.0 45 05/23/18 13:34 92 18 90 Venturi Mask 10.0 45 Intake and Output 05/23/18 05/24/18 19:00 07:00 Intake Total 55 ml Output Total 400 ml Balance -400 ml 55 ml Intake IV Total 55 ml Output Urine Total 400 ml Laboratory Tests 05/23/18 17:55: Arterial Blood pH 7.371, Arterial Blood Partial Pressure CO2 61.7*H, Arterial Blood Partial Pressure O2 56.5L, Arterial Blood HCO3 34.9H, Arterial Blood Oxygen Saturation 90.8L, Arterial Blood Base Excess 7.4H, Rahul Test Positive 05/23/18 18:00: Urine Opiates Screen Negative, Urine Barbiturates Screen Negative, Phencyclidine (PCP) Screen Negative, Urine Amphetamines Screen Negative, Urine Benzodiazepines Screen Negative, Urine Cocaine Screen Negative, Urine Marijuana (THC) Screen Negative 05/24/18 03:00: White Blood Count 19.7H, Red Blood Count 4.59, Hemoglobin 14.7, Hematocrit 42.5 , Mean Corpuscular Volume 92, Mean Corpuscular Hemoglobin 32.1H, Mean Corpuscular Hemoglobin Concent 34.7, Red Cell Distribution Width 11.3L, Platelet Count 243, Mean Platelet Volume 5.5L, Neutrophils (%) (Auto) , Lymphocytes (%) (Auto) , Monocytes (%) (Auto) , Eosinophils (%) (Auto) , Basophils (%) (Auto) , Differential Total Cells Counted 100, Neutrophils % ( Manual) 66, Lymphocytes % (Manual) 9L, Monocytes % (Manual) 12H, Eosinophils % ( Manual) 0, Basophils % (Manual) 0, Band Neutrophils 13H, Platelet Estimate Adequate, Platelet Morphology Normal, Red Blood Cell Morphology Normal, Sodium Level 138, Potassium Level 4.1, Chloride Level 98, Carbon Dioxide Level 30, Anion Gap 10, Blood Urea Nitrogen 17, Creatinine 0.7, Estimat Glomerular Filtration Rate > 60, Glucose Level 80, Hemoglobin A1c 6.0, Uric Acid 8.2H, Calcium Level 9.3, Phosphorus Level 2.8, Magnesium Level 1.6L, Total Bilirubin 0.6, Gamma Glutamyl Transpeptidase 62, Aspartate Amino Transf (AST/SGOT) 29, Alanine Aminotransferase (ALT/SGPT) 35, Alkaline Phosphatase 115, Troponin I 0.000, Pro-B-Type Natriuretic Peptide 186H, Total Protein 7.0, Albumin 2.5L, Globulin 4.5, Albumin/Globulin Ratio 0.6L, Triglycerides Level 124, Cholesterol Level 105, LDL Cholesterol 54, HDL Cholesterol 30L, Cholesterol/HDL Ratio 3.5, Vitamin B12 Level 924, Folate 40.6, Thyroid Stimulating Hormone (TSH) 1.921 Height (Feet): 5 Height (Inches): 5.00 Weight (Pounds): 179 General Appearance: no apparent distress, alert, overweight Neurologic: oriented x 3, responsive, depressed affect Reagan Marshall MD May 24, 2018 12:29
--- NOTE | 2018-05-24 13:49 | NUR ---
NURSE NOTES: Dr. 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 Per md, okay to restart 24h urine collection.
--- NOTE | 2018-05-24 14:00 | NUR ---
NURSE NOTES: PMD also made aware that pt unable to sign the consent and no family to sign. Addendum: 05/24/18 at 1545 by LEXIE ALVARADO RN MD leal document
[2018-05-24] MEDS ORDERED: Tubing IV Secondary IV ONE (15:17)
[2018-05-24] MEDS ORDERED: NS 275ml ONE (15:17)
--- NOTE | 2018-05-24 15:35 | Cardiac Electrophysiology PN ---
Assessment/Plan Assessment/Plan 1. Acute shortness of breath. The patient with COPD. On BIPAP and Abx per Dr. Membreno Ruled out for [facility]. EF 65%. Also on Lasix 40 iv daily 2. Elevated white count, likely pneumonia, on BiPAP. Antibiotic per Dr. Cohen. 3. History of psychosis. 4. Sinus tach due to PNA. No fib DW RN Subjective Subjective On BIPAP. NPO. RN at bedside. Sinus tach Objective Last 24 Hour Vital Signs Date Time Temp Pulse Resp B/P (MAP) Pulse Ox O2 Delivery O2 Flow Rate FiO2 05/24/18 12:59 92 25 94 Bi-pap 60 05/24/18 12:49 84 25 94 Bi-pap 60 05/24/18 12:40 87 25 94 Full Face 60 05/24/18 12:00 Bi-pap 05/24/18 12:00 60 05/24/18 12:00 89 05/24/18 12:00 99.9 92 23 120/75 (90) 96 05/24/18 10:39 90 21 96 Full Face 60 05/24/18 10:15 99.9 05/24/18 08:56 97 21 95 Full Face 60 05/24/18 08:00 Bi-pap 05/24/18 08:00 100.2 95 24 125/62 (83) 95 05/24/18 08:00 97 05/24/18 08:00 60 05/24/18 07:39 98 28 97 Bi-pap 60 05/24/18 07:30 96 25 94 Full Face 60 05/24/18 07:29 96 25 94 Bi-pap 60 05/24/18 05:26 100 28 92 Facial 60 05/24/18 04:00 40 05/24/18 04:00 99.2 95 22 122/63 (82) 95 05/24/18 04:00 Venturi Mask 10.0 05/24/18 03:31 89 92 05/24/18 03:21 95 05/24/18 01:30 94 34 92 Facial 40 05/24/18 01:27 108 36 95 Bi-pap 40 05/24/18 01:17 101 30 93 Bi-pap 40 05/24/18 00:00 10.0 05/24/18 00:00 99 05/24/18 00:00 Venturi Mask 10.0 05/24/18 00:00 98.7 101 22 130/69 (89) 92 05/23/18 23:00 84 92 05/23/18 20:06 92 32 92 Facial 40 05/23/18 20:00 96 34 94 Bi-pap 40 05/23/18 20:00 99.0 92 22 107/54 (71) 92 05/23/18 20:00 Venturi Mask 10.0 05/23/18 19:50 91 35 92 Bi-pap 40 05/23/18 19:35 93 05/23/18 16:00 99.6 99 20 128/70 (89) 96 05/23/18 16:00 98 05/23/18 16:00 Bi-pap 7.0 05/23/18 16:00 40 Intake and Output 05/23/18 05/24/18 19:00 07:00 Intake Total 55 ml Output Total 400 ml Balance -400 ml 55 ml Intake IV Total 55 ml Output Urine Total 400 ml Laboratory Tests Test 05/23/18 17:55 05/23/18 18:00 05/24/18 03:00 Arterial Blood pH 7.371 (7.350-7.450) Arterial Blood Partial Pressure CO2 61.7 mmHg (35.0-45.0) *H Arterial Blood Partial Pressure O2 56.5 mmHg (75.0-100.0) L Arterial Blood HCO3 34.9 mmol/L (22.0-26.0) H Arterial Blood Oxygen Saturation 90.8 % (95-100) L Arterial Blood Base Excess 7.4 (-2-2) H Rahul Test Positive Urine Opiates Screen Negative (NEGATIVE) Urine Barbiturates Screen Negative (NEGATIVE) Phencyclidine (PCP) Screen Negative (NEGATIVE) Urine Amphetamines Screen Negative (NEGATIVE) Urine Benzodiazepines Screen Negative (NEGATIVE) Urine Cocaine Screen Negative (NEGATIVE) Urine Marijuana (THC) Screen Negative (NEGATIVE) White Blood Count 19.7 K/UL (4.8-10.8) H Red Blood Count 4.59 M/UL (4.20-5.40) Hemoglobin 14.7 G/DL (12.0-16.0) Hematocrit 42.5 % (37.0-47.0) Mean Corpuscular Volume 92 FL (80-99) Mean Corpuscular Hemoglobin 32.1 PG (27.0-31.0) H Mean Corpuscular Hemoglobin Concent 34.7 G/DL (32.0-36.0) Red Cell Distribution Width 11.3 % (11.6-14.8) L Platelet Count 243 K/UL (150-450) Mean Platelet Volume 5.5 FL (6.5-10.1) L Neutrophils (%) (Auto) % (45.0-75.0) Lymphocytes (%) (Auto) % (20.0-45.0) Monocytes (%) (Auto) % (1.0-10.0) Eosinophils (%) (Auto) % (0.0-3.0) Basophils (%) (Auto) % (0.0-2.0) Differential Total Cells Counted 100 Neutrophils % (Manual) 66 % (45-75) Lymphocytes % (Manual) 9 % (20-45) L Monocytes % (Manual) 12 % (1-10) H Eosinophils % (Manual) 0 % (0-3) Basophils % (Manual) 0 % (0-2) Band Neutrophils 13 % (0-8) H Platelet Estimate Adequate Platelet Morphology Normal Red Blood Cell Morphology Normal Sodium Level 138 MMOL/L (136-145) Potassium Level 4.1 MMOL/L (3.5-5.1) Chloride Level 98 MMOL/L (98-107) Carbon Dioxide Level 30 MMOL/L (21-32) Anion Gap 10 mmol/L (5-15) Blood Urea Nitrogen 17 mg/dL (7-18) Creatinine 0.7 MG/DL (0.55-1.30) Estimat Glomerular Filtration Rate > 60 mL/min (>60) Glucose Level 80 MG/DL (74-106) Hemoglobin A1c 6.0 % (4.3-6.0) Uric Acid 8.2 MG/DL (2.6-7.2) H Calcium Level 9.3 MG/DL (8.5-10.1) Phosphorus Level 2.8 MG/DL (2.5-4.9) Magnesium Level 1.6 MG/DL (1.8-2.4) L Total Bilirubin 0.6 MG/DL (0.2-1.0) Gamma Glutamyl Transpeptidase 62 U/L (5-85) Aspartate Amino Transf (AST/SGOT) 29 U/L (15-37) Alanine Aminotransferase (ALT/SGPT) 35 U/L (12-78) Alkaline Phosphatase 115 U/L (46-116) Troponin I 0.000 ng/mL (0.000-0.056) Pro-B-Type Natriuretic Peptide 186 pg/mL (0-125) H Total Protein 7.0 G/DL (6.4-8.2) Albumin 2.5 G/DL (3.4-5.0) L Globulin 4.5 g/dL Albumin/Globulin Ratio 0.6 (1.0-2.7) L Triglycerides Level 124 MG/DL (30-150) Cholesterol Level 105 MG/DL (< 200) LDL Cholesterol 54 mg/dL (<100) HDL Cholesterol 30 MG/DL (40-60) L Cholesterol/HDL Ratio 3.5 (3.3-4.4) Vitamin B12 Level 924 PG/ML (193-986) Folate 40.6 NG/ML (8.6-58.9) Thyroid Stimulating Hormone (TSH) 1.921 uiU/mL (0.358-3.740) Microbiology Date/Time Source Procedure Growth Status 05/22/18 13:00 Blood Blood Culture - Preliminary NO GROWTH AFTER 24 HOURS Resulted 05/22/18 13:00 Blood Blood Culture - Preliminary Staphylococcus Sp Coag Neg Resulted 05/22/18 13:00 Nasal Nares Influenza Types A,B Antigen (JALEESA) - Final Complete 05/22/18 13:05 Urine,Clean Catch Urine Culture - Preliminary Strep Species, Alpha Hemolytic Resulted 05/22/18 16:07 Rectum Received Objective HEAD AND NECK: No JVD. LUNGS: Coarse rhonchi. CARDIOVASCULAR: Tachy regular S1 and S2 no M ABDOMEN: Soft. EXTREMITIES: No pitting edema. Zane Ocampo MD May 24, 2018 15:35
[2018-05-24 16:00] VITALS: BP 126/75
--- NOTE | 2018-05-24 16:05 | NUR ---
NURSE NOTES: Dr. álvarez in facility to assess the patient. MD updated on pt's condition. Keep the patient on bipap and keep npo per PMD.
--- NOTE | 2018-05-24 16:30 | NUR ---
NURSE NOTES: 24H urine collection initiated
--- NOTE | 2018-05-24 18:04 | NUR ---
NURSE NOTES: Patient signed consent for CTA chest with contrast. Dr. Bolton at bedside, agrees that pt is alert and orientedx3 and able to sign the consent
--- NOTE | 2018-05-24 18:23 | Consultation ---
Consult Note Consult Note NEUROLOGY CONSULTATION: Full note dictated #[id number] 67 y/o, RH, CF with PH of HTN, DL, COPD, hypothyroidism, schizoaffective disorder, and recent falls. She was hospitalized on 05/22/18 for AMS and a fall at her B/C home. She was retaining CO2 and was hypoxic. She also had a significant leukocytosis. She feels much better today. ON EXAM: Disoriented to exact date. M-3/3-0,1 & 3 Trump through Arauz Jr Math OK VS OK Speech dysarthric but on BiPAP Language mild anomia CN: Normal Mild proximal LE weakness. Globally diminished DTRs IMPRESSION: Toxic metabolic encephalopathy - improving. CT of brain benign. REC: Continue Rx. Rx of respiratory failure as per Dr. Membreno Rx of infection as per Dr. Cohen EEG Check ammonia. Observe. Fransico Bolton M.D., M.S.P.H. Fransico Bolton MD May 24, 2018 18:23
--- NOTE | 2018-05-24 18:58 | Pulmonology Progress Note ---
Assessment/Plan Problems: (1) COPD exacerbation (2) Hypercapnic respiratory failure, chronic (3) Hypoxia (4) Benzodiazepine dependence (5) Hypercarbia (6) Schizoaffective disorder Assessment/Plan ASSESSMENT: The patient is a 67-year-old female smoker with history of chronic obstructive pulmonary disease, assisted living resident, hypertension, hyperlipidemia, hypothyroidism, presenting after a fall, respiratory distress, likely exacerbation of chronic obstructive pulmonary disease and urinary tract infection. PROBLEM LIST: 1. Acute on chronic hypercapnic respiratory failure. 2. Chronic obstructive pulmonary disease with acute exacerbation. 3. Urinary tract infection ( alpha hemolytic strep) 4. CoNS in blood likely contaminant 5. Leukocytosis secondary to above and steroids 6. Questionable fall. 7. History of psychiatric disorder. 8. Hypertension, hyperlipidemia, hypothyroidism. 9. Mild elevation of D-dimer. TREATMENT PLAN: 1. Optimize pulmonary hygiene/mobilize as tolerated. 2. BiPAP 12/5 qHS and PRN 3. Titrate FiO2 to keep saturations greater than 90%. 4. RTC and PRN DuoNeb. 5. Continue SM 60 IV qDaily (D2) 6. Monitor for signs of respiratory infection. 7. Continue cefepime (D3), F/U repeat blood Cx's 8. Duplex neg, D-dim elevated, await CT-A 9. NPO while on BiPAP, once off we will advance diet cautiously with aspiration precautions. 10. Monitor volumes and renal function, continue IV Lasix per Cardiology. 11. DVT prophylaxis with heparin subcutaneous. 12. F/U neuro recs, monitor MS, F/U EEG, F/U ammonia 13. The patient should have outpatient workup including pulmonary function tests Subjective Allergies: Coded Allergies: No Known Allergies (Unverified , 05/22/18) Subjective AFVSS on BiPAP having a hard time coming off awake and alert no cough no SOB no FC WCT inc CoNS in blood Objective Last 24 Hour Vital Signs Date Time Temp Pulse Resp B/P (MAP) Pulse Ox O2 Delivery O2 Flow Rate FiO2 05/24/18 16:42 89 27 94 Facial 60 05/24/18 16:00 85 05/24/18 16:00 Bi-pap 05/24/18 16:00 60 05/24/18 16:00 97.8 88 27 126/75 (92) 93 05/24/18 14:53 88 32 94 Facial 60 05/24/18 12:59 92 25 94 Bi-pap 60 05/24/18 12:49 84 25 94 Bi-pap 60 05/24/18 12:40 87 25 94 Full Face 60 05/24/18 12:00 Bi-pap 05/24/18 12:00 60 05/24/18 12:00 89 05/24/18 12:00 99.9 92 23 120/75 (90) 96 05/24/18 10:39 90 21 96 Full Face 60 05/24/18 10:15 99.9 05/24/18 08:56 97 21 95 Full Face 60 05/24/18 08:00 Bi-pap 05/24/18 08:00 100.2 95 24 125/62 (83) 95 05/24/18 08:00 97 05/24/18 08:00 60 05/24/18 07:39 98 28 97 Bi-pap 60 05/24/18 07:30 96 25 94 Full Face 60 05/24/18 07:29 96 25 94 Bi-pap 60 05/24/18 05:26 100 28 92 Facial 60 05/24/18 04:00 40 05/24/18 04:00 99.2 95 22 122/63 (82) 95 05/24/18 04:00 Venturi Mask 10.0 05/24/18 03:31 89 92 05/24/18 03:21 95 05/24/18 01:30 94 34 92 Facial 40 05/24/18 01:27 108 36 95 Bi-pap 40 05/24/18 01:17 101 30 93 Bi-pap 40 05/24/18 00:00 10.0 05/24/18 00:00 99 05/24/18 00:00 Venturi Mask 10.0 05/24/18 00:00 98.7 101 22 130/69 (89) 92 05/23/18 23:00 84 92 05/23/18 20:06 92 32 92 Facial 40 05/23/18 20:00 96 34 94 Bi-pap 40 05/23/18 20:00 99.0 92 22 107/54 (71) 92 05/23/18 20:00 Venturi Mask 10.0 05/23/18 19:50 91 35 92 Bi-pap 40 05/23/18 19:35 93 Intake and Output 05/23/18 05/24/18 18:59 06:59 Intake Total 55 ml Output Total 400 ml Balance -400 ml 55 ml Intake IV Total 55 ml Output Urine Total 400 ml General Appearance: no acute distress HEENT: normocephalic, atraumatic, anicteric, mucous membranes moist, other - BiPAP Respiratory/Chest: rhonchi Cardiovascular: normal peripheral pulses, normal rate, regular rhythm Abdomen: normal bowel sounds, soft, non tender, no organomegaly, non distended , no mass Extremities: no cyanosis, no clubbing, no edema Microbiology Date/Time Source Procedure Growth Status 05/22/18 13:00 Blood Blood Culture - Preliminary NO GROWTH AFTER 24 HOURS Resulted 05/22/18 13:00 Blood Blood Culture - Preliminary Staphylococcus Sp Coag Neg Resulted 05/22/18 13:00 Nasal Nares Influenza Types A,B Antigen (JALEESA) - Final Complete 05/22/18 13:05 Urine,Clean Catch Urine Culture - Preliminary Strep Species, Alpha Hemolytic Resulted 05/22/18 16:07 Rectum Received Laboratory Tests 05/24/18 03:00: White Blood Count 19.7H, Red Blood Count 4.59, Hemoglobin 14.7, Hematocrit 42.5 , Mean Corpuscular Volume 92, Mean Corpuscular Hemoglobin 32.1H, Mean Corpuscular Hemoglobin Concent 34.7, Red Cell Distribution Width 11.3L, Platelet Count 243, Mean Platelet Volume 5.5L, Neutrophils (%) (Auto) , Lymphocytes (%) (Auto) , Monocytes (%) (Auto) , Eosinophils (%) (Auto) , Basophils (%) (Auto) , Differential Total Cells Counted 100, Neutrophils % ( Manual) 66, Lymphocytes % (Manual) 9L, Monocytes % (Manual) 12H, Eosinophils % ( Manual) 0, Basophils % (Manual) 0, Band Neutrophils 13H, Platelet Estimate Adequate, Platelet Morphology Normal, Red Blood Cell Morphology Normal, Sodium Level 138, Potassium Level 4.1, Chloride Level 98, Carbon Dioxide Level 30, Anion Gap 10, Blood Urea Nitrogen 17, Creatinine 0.7, Estimat Glomerular Filtration Rate > 60, Glucose Level 80, Hemoglobin A1c 6.0, Uric Acid 8.2H, Calcium Level 9.3, Phosphorus Level 2.8, Magnesium Level 1.6L, Total Bilirubin 0.6, Gamma Glutamyl Transpeptidase 62, Aspartate Amino Transf (AST/SGOT) 29, Alanine Aminotransferase (ALT/SGPT) 35, Alkaline Phosphatase 115, Troponin I 0.000, Pro-B-Type Natriuretic Peptide 186H, Total Protein 7.0, Albumin 2.5L, Globulin 4.5, Albumin/Globulin Ratio 0.6L, Triglycerides Level 124, Cholesterol Level 105, LDL Cholesterol 54, HDL Cholesterol 30L, Cholesterol/HDL Ratio 3.5, Vitamin B12 Level 924, Folate 40.6, Thyroid Stimulating Hormone (TSH) 1.921 Current Medications Medications (Trade) Dose Ordered Sig/Salty Route PRN Reason Start Time Stop Time Status Last Admin Dose Admin Acetaminophen (Tylenol) 500 mg Q4H PRN ORAL Mild Pain/Temp > 100.5 05/23/18 07:30 06/22/18 07:29 05/24/18 09:44 Albuterol/ Ipratropium (Albuterol/ Ipratropium) 3 ml Q4H PRN HHN Shortness of Breath 05/22/18 19:45 05/27/18 19:44 Albuterol/ Ipratropium (Albuterol/ Ipratropium) 3 ml Q6HRT HHN 05/23/18 01:00 05/28/18 00:59 05/24/18 12:49 Cefepime HCl 1 gm/ Dextrose 55 ml @ 110 mls/hr EVERY 12 HOURS IVPB 05/22/18 21:00 05/29/18 20:59 05/24/18 09:44 Fluoxetine HCl (PROzac) 20 mg DAILY ORAL 05/23/18 11:45 06/22/18 11:44 05/24/18 09:44 Furosemide (Lasix) 40 mg DAILY IV 05/23/18 09:00 06/22/18 08:59 05/24/18 09:45 Heparin Sodium (Porcine) (Heparin 5000 units/ml) 5,000 units EVERY 12 HOURS SUBQ 05/22/18 21:00 06/21/18 20:59 05/24/18 09:45 Iopamidol (Isovue-370 150ml) 150 ml NOW PRN INJ Radiology Procedure 05/23/18 15:00 05/25/18 14:59 Methylprednisolone Sodium Succinate (Solu-MEDROL) 60 mg DAILY IVP 05/24/18 09:00 06/23/18 08:59 05/24/18 09:44 Olanzapine (ZyPREXA) 10 mg BEDTIME ORAL 05/23/18 21:00 06/22/18 20:59 05/23/18 21:26 Rory Membreno MD May 24, 2018 18:58
--- NOTE | 2018-05-24 19:10 | NUR ---
NURSE NOTES: Received patient from Natalie Alegre RN. Patient sleeping in bed NAD AO3. BiPAP in place 03/22 60%. IV flushed and patent. NPO noted. Purewick in place draining well to suction; 24 hour urine collection container at bedside. Discussed plan of care for shift; pt verbalized understanding. Bed at lowest position; bed alarm on; side rails raised x3. Call light within reach. Will follow plan of care.
--- NOTE | 2018-05-24 19:10 | NUR ---
HAND-OFF: Report given to Jordan Braden RN.
--- NOTE | 2018-05-24 19:21 | NUR ---
RESPIRATORY NOTE: Received pt on bipap with current settings of IPAP 12, EPAP 5 FIO2 60%. Foam tape underneath the facial mask to prevent breakdown. Diminished breath sounds auscultated bilaterally.Pt is currently receiving her breathing treatment. Alarms are on and audible. Bipap plugged into red outlet. Will continue to monitor pt's progress.
[2018-05-24 20:00] VITALS: BP 130/76
--- NOTE | 2018-05-24 20:15 | Consultation ---
DATE OF CONSULTATION: 05/24/2018 NEUROLOGY CONSULTATION CONSULTING PHYSICIAN: Fransico Bolton M.D. REQUESTING PHYSICIAN: Margot Dutta M.D. HISTORY: Ms Leigh Ann Whitfield is a 67-year-old, right-handed, lady, who does have a past history of hypertension, dyslipidemia, chronic obstructive pulmonary disease, hypothyroidism, schizoaffective disorder, and recently she has had a few falls. She was brought into the [facility] and hospitalized for an alteration in her mental state and a fall [facility]. When she was evaluated in the emergency room, she was found to be retaining carbon dioxide, was hypoxic, and had a significant leukocytosis. It was felt that she had an acute on chronic exacerbation of her chronic obstructive pulmonary disease. She has since been on BiPAP and has improved. At this point in time, she says that she feels much better than when she came in. She is eager to eat. She denies. any weakness on one side or the other, numbness on one side or the other, problems with speech, problems with language, problems with vision, or other neurological symptoms. PAST MEDICAL HISTORY: Significant for hypertension, dyslipidemia, chronic obstructive pulmonary disease, hypothyroidism, schizoaffective disorder, and recent falls. FAMILY HISTORY: Nothing significant as per the patient. PERSONAL HISTORY: Home: She lives [facility]. 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 Habits: She used to smoke in the past, but has stopped smoking. She denies use of alcohol or illicit drugs. MEDICATIONS: Solu-Medrol, Zyprexa, Prozac, Lasix, Tylenol, DuoNeb inhaler, cefepime, and heparin for DVT prophylaxis. PHYSICAL EXAMINATION: GENERAL: She is a well-developed, well-nourished, pleasant lady, lying in bed with a BiPAP mask on. VITAL SIGNS: Pulse 89/minute, blood pressure 126/75 mmHg, respirations 27/minute, temperature 97.8 degrees Fahrenheit. HEAD: Normocephalic and atraumatic. EENT: Examination benign NECK: No neck rigidity was observed. NEUROLOGICAL EXAMINATION: MENTAL STATUS EXAMINATION: She was awake and alert. She was oriented to person, place, and time except for the exact date. She was able to recall 3/3 words immediately after 1 minute and after 3 minutes. She was able to remember presidents, Trump through Arauz Gigi, but could not remember presidents prior to that. Her mathematical skills were good. Her visuospatial function was preserved. SPEECH: She had a significant dysarthria, but it should be noted that she was on a BiPAP mask. LANGUAGE: She had a mild anomia for low-frequency words. CRANIAL NERVE EXAMINATION: II: The visual beltran were intact on confrontation testing. III, IV & : The external ocular movements were full and the pupils 3 mm in diameter, equal, round, regular, and reactive to light. V: She had normal facial sensations, and the temporales, masseters, and pterygoids functioned normally. VII: She had normal facial expressions and no facial asymmetry. VIII: She was able to hear well bilaterally and had no nystagmus. IX: The palate moved symmetrically on phonation. X: She had no hoarseness of voice. XI: The sternocleidomastoids and trapezii functioned normally. XII: The tongue was in the midline without any fasciculations or atrophy. MOTOR SYSTEM: The tone was normal in all four extremities. Examination of muscle mass revealed no focal wasting. Examination of power revealed G 5/5 power except for G 4/5 power in the iliopsoas muscles bilaterally with some give-way weakness. SENSORY EXAMINATION: She had intact sensations to pinprick, light touch, and graphesthesia. COORDINATION: She performed well on [id number] testing. She was unable to perform [id number] testing. REFLEXES: Trace+ and bilaterally symmetrical at the biceps, triceps, brachioradialis, and knees, 0 at both ankles. The plantar responses were flexor bilaterally. STANCE: Could not be tested. GAIT: Could not be tested. DIAGNOSTIC IMPRESSION: 1. Ms Leigh Ann Whitfield is a 67-year-old, right-handed, lady, who does have a past history of hypertension, dyslipidemia, chronic obstructive pulmonary disease, hypothyroidism, schizoaffective disorder, and recent falls, who was hospitalized on 05/22/2018 for an altered mental state and a fall [facility]. She was found to be hypoxic, hypercapnic, and had a significant leukocytosis. Since she has been in the hospital, she has improved. 2. On neurological examination, at this time, she is disoriented to the exact date, has problems with memory, has a significant dysarthric speech, but she is on a BiPAP mask, has a mild anomia, has proximal bilateral lower extremity weakness of a symmetrical nature and globally diminished deep tendon reflexes. 3. Laboratory data obtained thus far have revealed that she has a significant leukocytosis with a WBC count of 19,700. Her chemistry panel reveals that her uric acid level was elevated at 8.2, magnesium was low at 1.6. ProBNP that was elevated at 186, albumin was low at 2.5. Her B12 level was normal at 924. Her folate level was normal at 40.6. Her TSH was normal at 1.92 with a free T4 of 1.13. The Hemoglobin A1c was at 6%. Latest arterial blood gas revealed a pH at 7.37, pCO2 at 62, and pO2 at 56. Her urinalysis revealed 1+ leukocyte esterase, 0-2 red blood cells, and 2-4 white blood cells per high-power field. 4. The CT scan of the brain without contrast revealed atrophy and some deep white matter changes, but no acute pathology. 5. The patient's history, neurological examination, laboratory data, and imaging studies are most compatible with a toxic metabolic encephalopathy related to the hypoxia, hypercapnia, and an infectious process. RECOMMENDATIONS: 1. Agree with management thus far. 2. Aggressive treatment of the patient's respiratory failure as per Dr. Membreno. 3. Aggressive treatment of the patient's infectious process as per Dr. Cohen. 4. An ammonia level should be checked to exclude other treatable causes of her metabolic encephalopathy. 5. An EEG will be ordered to evaluate the patient for the degree and type of encephalopathy. 6. The patient will be observed closely and depending on how she fares further recommendations will be given. Thank you for entrusting me with the care of Ms. Whitfield. I shall follow her with you. Fransico Bolton M.D., M.S.P.H. DR: NADIR JOB#: [id number] VASILE
[2018-05-24] MEDS: OLANZapine 10mg tab ORAL SCH (20:39)
--- NOTE | 2018-05-24 22:17 | General Progress Note ---
Assessment/Plan Problem List: (1) Hypoxia ICD Codes: R09.02 - Hypoxemia SNOMED: 758414753 (2) COPD exacerbation ICD Codes: J44.1 - Chronic obstructive pulmonary disease with (acute) exacerbation SNOMED: 796019413 (3) Hypercapnic respiratory failure, chronic ICD Codes: J96.12 - Chronic respiratory failure with hypercapnia SNOMED: 393573665 (4) Hypoxemia ICD Codes: R09.02 - Hypoxemia SNOMED: 943143287 (5) Benzodiazepine dependence ICD Codes: F13.20 - Sedative, hypnotic or anxiolytic dependence, uncomplicated SNOMED: 633813754 (6) Hypoalbuminemia ICD Codes: E88.09 - Other disorders of plasma-protein metabolism, not elsewhere classified SNOMED: 836008802 Status: progressing Assessment/Plan afebrile on oxygen copd exacerbation not hypoxic still lethargic and confused r/o pna psych patient Subjective ROS Limited/Unobtainable: Yes Allergies: Coded Allergies: No Known Allergies (Unverified , 05/22/18) Objective Last 24 Hour Vital Signs Date Time Temp Pulse Resp B/P (MAP) Pulse Ox O2 Delivery O2 Flow Rate FiO2 05/24/18 21:07 83 30 92 Facial 60 05/24/18 21:00 Bi-pap 05/24/18 20:00 98.7 83 24 130/76 (94) 95 05/24/18 20:00 80 05/24/18 19:25 81 22 94 Bi-pap 60 05/24/18 19:19 85 28 92 Facial 60 05/24/18 19:18 85 25 92 Bi-pap 60 05/24/18 16:42 89 27 94 Facial 60 05/24/18 16:00 85 05/24/18 16:00 Bi-pap 05/24/18 16:00 60 05/24/18 16:00 97.8 88 27 126/75 (92) 93 05/24/18 14:53 88 32 94 Facial 60 05/24/18 12:59 92 25 94 Bi-pap 60 05/24/18 12:49 84 25 94 Bi-pap 60 05/24/18 12:40 87 25 94 Full Face 60 05/24/18 12:00 Bi-pap 05/24/18 12:00 60 05/24/18 12:00 89 05/24/18 12:00 99.9 92 23 120/75 (90) 96 05/24/18 10:39 90 21 96 Full Face 60 05/24/18 10:15 99.9 05/24/18 08:56 97 21 95 Full Face 60 05/24/18 08:00 Bi-pap 05/24/18 08:00 100.2 95 24 125/62 (83) 95 05/24/18 08:00 97 05/24/18 08:00 60 05/24/18 07:39 98 28 97 Bi-pap 60 05/24/18 07:30 96 25 94 Full Face 60 05/24/18 07:29 96 25 94 Bi-pap 60 05/24/18 05:26 100 28 92 Facial 60 05/24/18 04:00 40 05/24/18 04:00 99.2 95 22 122/63 (82) 95 05/24/18 04:00 Venturi Mask 10.0 05/24/18 03:31 89 92 05/24/18 03:21 95 05/24/18 01:30 94 34 92 Facial 40 05/24/18 01:27 108 36 95 Bi-pap 40 05/24/18 01:17 101 30 93 Bi-pap 40 05/24/18 00:00 10.0 05/24/18 00:00 99 05/24/18 00:00 Venturi Mask 10.0 05/24/18 00:00 98.7 101 22 130/69 (89) 92 05/23/18 23:00 84 92 Intake and Output 05/23/18 05/24/18 18:59 06:59 Intake Total 55 ml Output Total 400 ml Balance -400 ml 55 ml Intake IV Total 55 ml Output Urine Total 400 ml Laboratory Tests 05/24/18 03:00: White Blood Count 19.7H, Red Blood Count 4.59, Hemoglobin 14.7, Hematocrit 42.5 , Mean Corpuscular Volume 92, Mean Corpuscular Hemoglobin 32.1H, Mean Corpuscular Hemoglobin Concent 34.7, Red Cell Distribution Width 11.3L, Platelet Count 243, Mean Platelet Volume 5.5L, Neutrophils (%) (Auto) , Lymphocytes (%) (Auto) , Monocytes (%) (Auto) , Eosinophils (%) (Auto) , Basophils (%) (Auto) , Differential Total Cells Counted 100, Neutrophils % ( Manual) 66, Lymphocytes % (Manual) 9L, Monocytes % (Manual) 12H, Eosinophils % ( Manual) 0, Basophils % (Manual) 0, Band Neutrophils 13H, Platelet Estimate Adequate, Platelet Morphology Normal, Red Blood Cell Morphology Normal, Sodium Level 138, Potassium Level 4.1, Chloride Level 98, Carbon Dioxide Level 30, Anion Gap 10, Blood Urea Nitrogen 17, Creatinine 0.7, Estimat Glomerular Filtration Rate > 60, Glucose Level 80, Hemoglobin A1c 6.0, Uric Acid 8.2H, Calcium Level 9.3, Phosphorus Level 2.8, Magnesium Level 1.6L, Total Bilirubin 0.6, Gamma Glutamyl Transpeptidase 62, Aspartate Amino Transf (AST/SGOT) 29, Alanine Aminotransferase (ALT/SGPT) 35, Alkaline Phosphatase 115, Troponin I 0.000, Pro-B-Type Natriuretic Peptide 186H, Total Protein 7.0, Albumin 2.5L, Globulin 4.5, Albumin/Globulin Ratio 0.6L, Triglycerides Level 124, Cholesterol Level 105, LDL Cholesterol 54, HDL Cholesterol 30L, Cholesterol/HDL Ratio 3.5, Vitamin B12 Level 924, Folate 40.6, Thyroid Stimulating Hormone (TSH) 1.921 05/24/18 21:15: Ammonia 34H Height (Feet): 5 Height (Inches): 5.00 Weight (Pounds): 179 General Appearance: lethargic, confused Cardiovascular: regular rhythm Abdomen: soft Margot Dutta MD May 24, 2018 22:17
--- NOTE | 2018-05-24 23:00 | NUR ---
NURSE NOTES: EEG done at bedside. Results placed in patient chart.
[2018-05-25] VITALS: BP 126/71
[2018-05-25] MEDS: Albuterol/Ipratropium 3ml neb HHN SCH ×6 (01:03→23:35)
[2018-05-25 04:00] VITALS: BP 135/75
--- NOTE | 2018-05-25 05:00 | NUR ---
NURSE NOTES: Left message for MD Navjot regarding patient 24 urine collection. Patient currently on purewick; unable to lie still for urine collection despite multiple adjustment attempts. Awaiting call back
--- NOTE | 2018-05-25 07:04 | NUR ---
HAND-OFF: Report given to RAUL Hidalgo. Patient in stable condition. Plan of care endorsed.
--- NOTE | 2018-05-25 07:05 | NUR ---
NURSE NOTES: RECEIVED PATIENT FROM Geri BROWN RN. PATIENT IS LYING IN BED, AWAKE, ALERT AND ORIENTED. ABLE TO MAKE NEEDS KNOWN. ON LEIA MASK 15L, FIO2 55%. NO SIGNS OF DISTRESS. MAINTAINED NPO. ON PUREWICK. IV ON R AC G20, SL. CALL LIGHT WITHIN REACH. SIDE RAILS UP. BED AT LOWEST POSITION. WILL CONTINUE TO MONITOR.
[2018-05-25 08:00] VITALS: BP 139/84
[2018-05-25] MEDS: Solu-MEDROL 125mg Inj IVP SCH (08:57)
[2018-05-25] MEDS: Heparin 5000 units/ml inj SUBQ SCH ×2 (08:59→21:26)
[2018-05-25] MEDS: Cefepime HCl 1 GM in D5W 55 ML IVPB SCH ×2 (09:01→21:30)
--- NOTE | 2018-05-25 09:52 | Pulmonology Progress Note ---
Assessment/Plan Problems: (1) COPD exacerbation (2) Hypercapnic respiratory failure, chronic (3) Hypoxia (4) Benzodiazepine dependence (5) Hypercarbia (6) Schizoaffective disorder Assessment/Plan ASSESSMENT: The patient is a 67-year-old female smoker with history of chronic obstructive pulmonary disease, assisted living resident, hypertension, hyperlipidemia, hypothyroidism, presenting after a fall, respiratory distress, likely exacerbation of chronic obstructive pulmonary disease and urinary tract infection. PROBLEM LIST: 1. Acute on chronic hypercapnic respiratory failure. 2. Chronic obstructive pulmonary disease with acute exacerbation. 3. Urinary tract infection ( alpha hemolytic strep) 4. CoNS in blood likely contaminant 5. Leukocytosis secondary to above and steroids 6. Questionable fall. 7. History of psychiatric disorder. 8. Hypertension, hyperlipidemia, hypothyroidism. 9. Mild elevation of D-dimer. TREATMENT PLAN: 1. CXR 2. ABG 3. F/U AML 4. Optimize pulmonary hygiene/mobilize as tolerated. 5. BiPAP 12/5 qHS and PRN 7. Titrate FiO2 to keep saturations greater than 90%. 8. RTC and PRN DuoNeb. 9. Continue SM 60 IV qDaily (D3) 10. Add Mucomyst HHN's and CPT QID 11. Monitor for signs of respiratory infection. 12. Continue cefepime (D4), F/U repeat blood Cx's 13. Duplex neg, D-dim elevated, await CT-A 14. NPO while on BiPAP, once off we will advance diet cautiously with aspiration precautions. 15. Monitor volumes and renal function, continue IV Lasix per Cardiology. 16. DVT prophylaxis with heparin subcutaneous. 17. F/U neuro recs, monitor MS, F/U EEG, F/U ammonia 18. The patient should have outpatient workup including pulmonary function tests Subjective Allergies: Coded Allergies: No Known Allergies (Unverified , 05/22/18) Subjective AFVSS on BiPAP -> VM awake and alert _+ cough no SOB no FC AML pending Objective Last 24 Hour Vital Signs Date Time Temp Pulse Resp B/P (MAP) Pulse Ox O2 Delivery O2 Flow Rate FiO2 05/25/18 08:00 97.2 84 24 139/84 (102) 91 05/25/18 08:00 15.0 05/25/18 08:00 Venturi Mask 05/25/18 07:49 90 20 91 Venturi Mask 15.0 55 05/25/18 07:36 90 20 90 Venturi Mask 15.0 55 05/25/18 07:35 83 20 90 05/25/18 05:14 76 22 92 Facial 60 05/25/18 04:00 98.2 81 21 135/75 (95) 94 05/25/18 04:00 60 05/25/18 04:00 77 05/25/18 04:00 Bi-pap 05/25/18 03:05 77 21 93 Facial 60 05/25/18 01:13 79 20 92 Bi-pap 60 05/25/18 01:13 79 21 92 Full Face 60 05/25/18 01:03 77 20 93 Bi-pap 60 05/25/18 00:00 Bi-pap 05/25/18 00:00 79 05/25/18 00:00 98.4 77 26 126/71 (89) 97 05/24/18 23:15 86 24 93 Facial 60 05/24/18 21:07 83 30 92 Facial 60 05/24/18 21:00 Bi-pap 05/24/18 20:00 60 05/24/18 20:00 98.7 83 24 130/76 (94) 95 05/24/18 20:00 80 05/24/18 19:25 81 22 94 Bi-pap 60 05/24/18 19:19 85 28 92 Facial 60 05/24/18 19:18 85 25 92 Bi-pap 60 05/24/18 16:42 89 27 94 Facial 60 05/24/18 16:00 85 05/24/18 16:00 Bi-pap 05/24/18 16:00 60 05/24/18 16:00 97.8 88 27 126/75 (92) 93 05/24/18 14:53 88 32 94 Facial 60 05/24/18 12:59 92 25 94 Bi-pap 60 05/24/18 12:49 84 25 94 Bi-pap 60 05/24/18 12:40 87 25 94 Full Face 60 05/24/18 12:00 Bi-pap 05/24/18 12:00 60 05/24/18 12:00 89 05/24/18 12:00 99.9 92 23 120/75 (90) 96 05/24/18 10:39 90 21 96 Full Face 60 05/24/18 10:15 99.9 Intake and Output 05/24/18 05/25/18 19:00 07:00 Intake Total 55 ml 55 ml Balance 55 ml 55 ml Intake IV Total 55 ml 55 ml # Voids 2 3 General Appearance: WD/WN, no acute distress HEENT: normocephalic, atraumatic, anicteric, mucous membranes moist Respiratory/Chest: rhonchi Cardiovascular: normal peripheral pulses, normal rate, regular rhythm Abdomen: normal bowel sounds, soft, non tender, no organomegaly, non distended , no mass Extremities: no cyanosis, no clubbing, no edema Microbiology Date/Time Source Procedure Growth Status 05/22/18 13:00 Blood Blood Culture - Preliminary NO GROWTH AFTER 48 HOURS Resulted 05/22/18 13:00 Blood Blood Culture - Final Staphylococcus Sp Coag Neg Complete 05/22/18 13:00 Nasal Nares Influenza Types A,B Antigen (JALEESA) - Final Complete 05/22/18 13:05 Urine,Clean Catch Urine Culture - Final Aerococcus Urinae Complete 05/23/18 10:00 Rectum VRE Culture - Final NO VANCOMYCIN RESISTANT ENTEROCOCCUS ... Complete 05/22/18 16:07 Rectum - Final NO CARBAPENEM-RESISTANT ENTEROBACTERI... Complete Laboratory Tests 05/24/18 21:15: Ammonia 34H Current Medications Medications (Trade) Dose Ordered Sig/Salty Route PRN Reason Start Time Stop Time Status Last Admin Dose Admin Acetaminophen (Tylenol) 500 mg Q4H PRN ORAL Mild Pain/Temp > 100.5 05/23/18 07:30 06/22/18 07:29 05/24/18 09:44 Albuterol/ Ipratropium (Albuterol/ Ipratropium) 3 ml Q4H PRN HHN Shortness of Breath 05/22/18 19:45 05/27/18 19:44 Albuterol/ Ipratropium (Albuterol/ Ipratropium) 3 ml Q6HRT HHN 05/23/18 01:00 05/28/18 00:59 05/25/18 07:35 Cefepime HCl 1 gm/ Dextrose 55 ml @ 110 mls/hr EVERY 12 HOURS IVPB 05/22/18 21:00 05/29/18 20:59 05/25/18 09:01 Fluoxetine HCl (PROzac) 20 mg DAILY ORAL 05/23/18 11:45 06/22/18 11:44 05/25/18 08:58 Furosemide (Lasix) 40 mg DAILY IV 05/23/18 09:00 06/22/18 08:59 05/25/18 08:57 Heparin Sodium (Porcine) (Heparin 5000 units/ml) 5,000 units EVERY 12 HOURS SUBQ 05/22/18 21:00 06/21/18 20:59 05/25/18 08:59 Iopamidol (Isovue-370 150ml) 150 ml NOW PRN INJ Radiology Procedure 05/23/18 15:00 05/25/18 14:59 Methylprednisolone Sodium Succinate (Solu-MEDROL) 60 mg DAILY IVP 05/24/18 09:00 06/23/18 08:59 05/25/18 08:57 Olanzapine (ZyPREXA) 10 mg BEDTIME ORAL 05/23/18 21:00 06/22/18 20:59 05/24/18 20:39 Rory Membreno MD May 25, 2018 09:52
--- NOTE | 2018-05-25 09:58 | NUR ---
NURSE NOTES: SEEN AND EXAMINED BY DR MADISON AND DR FULTON WITH NEW ORDERS MADE. TOLERATING VENTI MASK AT 91%. WILL CONTINUE TO MONITOR.
--- NOTE | 2018-05-25 10:11 | Cardiac Electrophysiology PN ---
Assessment/Plan Assessment/Plan 1. Acute shortness of breath. The patient with COPD. On and off on BIPAP and Abx per Dr. Membreno Ruled out for [place]. EF 65%. On Lasix 40 iv daily. May need Tracheostomy 2. Elevated white count, likely pneumonia, on BiPAP. Antibiotic per Dr. Cohen. 3. History of psychosis. 4. Sinus tach due to PNA. No fib DW RN and Dr Membreno Subjective Subjective Off BIPAP but sat is dropping. RN at bedside. Objective Last 24 Hour Vital Signs Date Time Temp Pulse Resp B/P (MAP) Pulse Ox O2 Delivery O2 Flow Rate FiO2 05/25/18 08:00 97.2 84 24 139/84 (102) 91 05/25/18 08:00 15.0 05/25/18 08:00 Venturi Mask 05/25/18 07:49 90 20 91 Venturi Mask 15.0 55 05/25/18 07:36 90 20 90 Venturi Mask 15.0 55 05/25/18 07:35 83 20 90 05/25/18 05:14 76 22 92 Facial 60 05/25/18 04:00 98.2 81 21 135/75 (95) 94 05/25/18 04:00 60 05/25/18 04:00 77 05/25/18 04:00 Bi-pap 05/25/18 03:05 77 21 93 Facial 60 05/25/18 01:13 79 20 92 Bi-pap 60 05/25/18 01:13 79 21 92 Full Face 60 05/25/18 01:03 77 20 93 Bi-pap 60 05/25/18 00:00 Bi-pap 05/25/18 00:00 79 05/25/18 00:00 98.4 77 26 126/71 (89) 97 05/24/18 23:15 86 24 93 Facial 60 05/24/18 21:07 83 30 92 Facial 60 05/24/18 21:00 Bi-pap 05/24/18 20:00 60 05/24/18 20:00 98.7 83 24 130/76 (94) 95 05/24/18 20:00 80 05/24/18 19:25 81 22 94 Bi-pap 60 05/24/18 19:19 85 28 92 Facial 60 05/24/18 19:18 85 25 92 Bi-pap 60 05/24/18 16:42 89 27 94 Facial 60 05/24/18 16:00 85 05/24/18 16:00 Bi-pap 05/24/18 16:00 60 05/24/18 16:00 97.8 88 27 126/75 (92) 93 05/24/18 14:53 88 32 94 Facial 60 05/24/18 12:59 92 25 94 Bi-pap 60 05/24/18 12:49 84 25 94 Bi-pap 60 05/24/18 12:40 87 25 94 Full Face 60 05/24/18 12:00 Bi-pap 05/24/18 12:00 60 05/24/18 12:00 89 05/24/18 12:00 99.9 92 23 120/75 (90) 96 05/24/18 10:39 90 21 96 Full Face 60 05/24/18 10:15 99.9 Intake and Output 05/24/18 05/25/18 19:00 07:00 Intake Total 55 ml 55 ml Balance 55 ml 55 ml Intake IV Total 55 ml 55 ml # Voids 2 3 Laboratory Tests Test 05/24/18 21:15 Ammonia 34 umol/L (11-32) H Microbiology Date/Time Source Procedure Growth Status 05/22/18 13:00 Blood Blood Culture - Preliminary NO GROWTH AFTER 48 HOURS Resulted 05/22/18 13:00 Blood Blood Culture - Final Staphylococcus Sp Coag Neg Complete 05/22/18 13:00 Nasal Nares Influenza Types A,B Antigen (JALEESA) - Final Complete 05/22/18 13:05 Urine,Clean Catch Urine Culture - Final Aerococcus Urinae Complete 05/23/18 10:00 Rectum VRE Culture - Final NO VANCOMYCIN RESISTANT ENTEROCOCCUS ... Complete 05/22/18 16:07 Rectum - Final NO CARBAPENEM-RESISTANT ENTEROBACTERI... Complete Objective HEAD AND NECK: No JVD. Faec Mask LUNGS: Coarse rhonchi. CARDIOVASCULAR: Tachy regular S1 and S2 no M ABDOMEN: Soft. EXTREMITIES: No pitting edema. Zane Ocampo MD May 25, 2018 10:11
[2018-05-25 11:26] LABS: HEMATOCRIT 48.3 % (37.0-47.0); HEMOGLOBIN 16.3 G/DL (12.0-16.0); MEAN CORPUSCULAR VOLUME 92 FL (80-99); PLATELET COUNT 348 K/UL (150-450); RED BLOOD COUNT 5.26 M/UL (4.20-5.40); WHITE BLOOD COUNT 21.7 K/UL (4.8-10.8)
[2018-05-25 11:34] LABS: ANION GAP 8 mmol/L (5-15); BLOOD UREA NITROGEN 33 mg/dL (7-18); CARBON DIOXIDE 32 MMOL/L (21-32); CHLORIDE 99 MMOL/L (98-107); CREATININE 0.7 MG/DL (0.55-1.30); POTASSIUM 4.1 MMOL/L (3.5-5.1); SODIUM 139 MMOL/L (136-145)
[2018-05-25 11:39] LABS: ALANINE AMINOTRANSFERASE 32 U/L (12-78); ALBUMIN 2.6 G/DL (3.4-5.0); ALBUMIN/GLOBULIN RATIO 0.5 (1.0-2.7); ALKALINE PHOSPHATASE 131 U/L (46-116); ASPARTATE AMINO TRANSFERASE 23 U/L (15-37); BILIRUBIN,TOTAL 0.4 MG/DL (0.2-1.0)
[2018-05-25 12:00] VITALS: BP 138/79
--- NOTE | 2018-05-25 12:30 | NUR ---
NURSE NOTES: INFORMED DR FULTON RE ABG RESULT. ORDERED TO PUT PATIENT BACK TO CONTINUOUS BIPAP. BUT PATIENT KEEPS PULLING THE MASK OFF. ENCOURAGED TO KEEP THE MASK ON. NO SIGNS OF DISTRESS. WILL CONTINUE TO MONITOR.
--- NOTE | 2018-05-25 13:12 | Infectious Diseases Prog Note ---
Assessment/Plan Assessment/Plan A; Chronic obstructive pulmonary disease exacerbation, leukocytosis; schizoaffective disorder, hypothyroidism, hyperlipidemia, hypertension. Positive blood culture with CoANS P: Continue Cefepime Subjective ROS Limited/Unobtainable: No Constitutional: Reports: no symptoms Respiratory: Reports: no symptoms Cardiovascular: Reports: no symptoms Gastrointestinal/Abdominal: Reports: no symptoms Allergies: Coded Allergies: No Known Allergies (Unverified , 05/22/18) Objective Vital Signs Last 24 Hour Vital Signs Date Time Temp Pulse Resp B/P (MAP) Pulse Ox O2 Delivery O2 Flow Rate FiO2 05/25/18 11:54 84 05/25/18 11:13 94 20 91 Venturi Mask 15.0 55 05/25/18 11:00 90 16 91 Venturi Mask 15.0 55 05/25/18 08:00 97.2 84 24 139/84 (102) 91 05/25/18 08:00 15.0 05/25/18 08:00 Venturi Mask 05/25/18 07:49 90 20 91 Venturi Mask 15.0 55 05/25/18 07:36 90 20 90 Venturi Mask 15.0 55 05/25/18 07:35 83 20 90 05/25/18 07:19 82 05/25/18 05:14 76 22 92 Facial 60 05/25/18 04:00 98.2 81 21 135/75 (95) 94 05/25/18 04:00 60 05/25/18 04:00 77 05/25/18 04:00 Bi-pap 05/25/18 03:05 77 21 93 Facial 60 05/25/18 01:13 79 20 92 Bi-pap 60 05/25/18 01:13 79 21 92 Full Face 60 05/25/18 01:03 77 20 93 Bi-pap 60 05/25/18 00:00 Bi-pap 05/25/18 00:00 79 05/25/18 00:00 98.4 77 26 126/71 (89) 97 05/24/18 23:15 86 24 93 Facial 60 05/24/18 21:07 83 30 92 Facial 60 05/24/18 21:00 Bi-pap 05/24/18 20:00 60 05/24/18 20:00 98.7 83 24 130/76 (94) 95 05/24/18 20:00 80 05/24/18 19:25 81 22 94 Bi-pap 60 05/24/18 19:19 85 28 92 Facial 60 05/24/18 19:18 85 25 92 Bi-pap 60 05/24/18 16:42 89 27 94 Facial 60 05/24/18 16:00 85 05/24/18 16:00 Bi-pap 05/24/18 16:00 60 05/24/18 16:00 97.8 88 27 126/75 (92) 93 05/24/18 14:53 88 32 94 Facial 60 Height (Feet): 5 Height (Inches): 5.00 Weight (Pounds): 179 HEENT: mucous membranes moist Respiratory/Chest: decreased breath sounds Abdomen: soft, non tender Extremities: other - periankle edema Neurologic/Psychiatric: alert, responsive Microbiology Date/Time Source Procedure Growth Status 05/22/18 16:07 Nasal Nares MRSA Culture - Final NO METHICILLIN RESISTANT STAPH AUREUS... Complete 05/23/18 10:00 Rectum VRE Culture - Final NO VANCOMYCIN RESISTANT ENTEROCOCCUS ... Complete 05/22/18 16:07 Rectum - Final NO CARBAPENEM-RESISTANT ENTEROBACTERI... Complete Laboratory Tests Test 05/24/18 21:15 05/25/18 10:45 05/25/18 10:50 Ammonia 34 umol/L (11-32) H Arterial Blood pH 7.471 (7.350-7.450) Arterial Blood Partial Pressure CO2 44.4 mmHg (35.0-45.0) Arterial Blood Partial Pressure O2 65.5 mmHg (75.0-100.0) L Arterial Blood HCO3 31.7 mmol/L (22.0-26.0) H Arterial Blood Oxygen Saturation 92.0 % (95-100) L Arterial Blood Base Excess 7.1 (-2-2) H Rahul Test Positive White Blood Count 21.7 K/UL (4.8-10.8) H Red Blood Count 5.26 M/UL (4.20-5.40) Hemoglobin 16.3 G/DL (12.0-16.0) H Hematocrit 48.3 % (37.0-47.0) H Mean Corpuscular Volume 92 FL (80-99) Mean Corpuscular Hemoglobin 31.0 PG (27.0-31.0) Mean Corpuscular Hemoglobin Concent 33.7 G/DL (32.0-36.0) Red Cell Distribution Width 11.0 % (11.6-14.8) L Platelet Count 348 K/UL (150-450) Mean Platelet Volume 5.9 FL (6.5-10.1) L Neutrophils (%) (Auto) % (45.0-75.0) Lymphocytes (%) (Auto) % (20.0-45.0) Monocytes (%) (Auto) % (1.0-10.0) Eosinophils (%) (Auto) % (0.0-3.0) Basophils (%) (Auto) % (0.0-2.0) Differential Total Cells Counted 100 Neutrophils % (Manual) 70 % (45-75) Lymphocytes % (Manual) 8 % (20-45) L Monocytes % (Manual) 1 % (1-10) Eosinophils % (Manual) 0 % (0-3) Basophils % (Manual) 0 % (0-2) Metamyelocytes % 1 % (0-0) H Band Neutrophils 20 % (0-8) H Platelet Estimate Adequate Platelet Morphology Normal Red Blood Cell Morphology Normal Sodium Level 139 MMOL/L (136-145) Potassium Level 4.1 MMOL/L (3.5-5.1) Chloride Level 99 MMOL/L (98-107) Carbon Dioxide Level 32 MMOL/L (21-32) Anion Gap 8 mmol/L (5-15) Blood Urea Nitrogen 33 mg/dL (7-18) H Creatinine 0.7 MG/DL (0.55-1.30) Estimat Glomerular Filtration Rate > 60 mL/min (>60) Glucose Level 135 MG/DL (74-106) H Calcium Level 10.0 MG/DL (8.5-10.1) Magnesium Level 2.1 MG/DL (1.8-2.4) Total Bilirubin 0.4 MG/DL (0.2-1.0) Aspartate Amino Transf (AST/SGOT) 23 U/L (15-37) Alanine Aminotransferase (ALT/SGPT) 32 U/L (12-78) Alkaline Phosphatase 131 U/L (46-116) H Total Protein 7.8 G/DL (6.4-8.2) Albumin 2.6 G/DL (3.4-5.0) L Globulin 5.2 g/dL Albumin/Globulin Ratio 0.5 (1.0-2.7) L Current Medications Medications (Trade) Dose Ordered Sig/Salty Route PRN Reason Start Time Stop Time Status Last Admin Dose Admin Acetaminophen (Tylenol) 500 mg Q4H PRN ORAL Mild Pain/Temp > 100.5 05/23/18 07:30 06/22/18 07:29 05/24/18 09:44 Acetylcysteine (Mucomyst) 100 mg TIDRT N 05/25/18 13:00 06/24/18 12:59 Albuterol/ Ipratropium (Albuterol/ Ipratropium) 3 ml Q4H PRN HHN Shortness of Breath 05/22/18 19:45 05/27/18 19:44 Albuterol/ Ipratropium (Albuterol/ Ipratropium) 3 ml Q4HRT N 05/25/18 11:00 05/28/18 00:59 05/25/18 11:02 Cefepime HCl 1 gm/ Dextrose 55 ml @ 110 mls/hr EVERY 12 HOURS IVPB 05/22/18 21:00 05/29/18 20:59 05/25/18 09:01 Fluoxetine HCl (PROzac) 20 mg DAILY ORAL 05/23/18 11:45 06/22/18 11:44 05/25/18 08:58 Furosemide (Lasix) 40 mg DAILY IV 05/23/18 09:00 06/22/18 08:59 05/25/18 08:57 Heparin Sodium (Porcine) (Heparin 5000 units/ml) 5,000 units EVERY 12 HOURS SUBQ 05/22/18 21:00 06/21/18 20:59 05/25/18 08:59 Iopamidol (Isovue-370 150ml) 150 ml NOW PRN INJ Radiology Procedure 05/23/18 15:00 05/25/18 14:59 Methylprednisolone Sodium Succinate (Solu-MEDROL) 60 mg DAILY IVP 05/24/18 09:00 06/23/18 08:59 05/25/18 08:57 Olanzapine (ZyPREXA) 10 mg BEDTIME ORAL 05/23/18 21:00 06/22/18 20:59 05/24/18 20:39 Migel Cohen MD May 25, 2018 13:12
--- NOTE | 2018-05-25 13:53 | General Progress Note ---
Assessment/Plan Problem List: (1) Schizoaffective disorder ICD Codes: F25.9 - Schizoaffective disorder, unspecified SNOMED: 53000235 Assessment/Plan possible benzo od cont prozac cont zyprexa dc depakote Subjective Neurologic/Psychiatric: Reports: anxiety, depressed, emotional problems Allergies: Coded Allergies: No Known Allergies (Unverified , 05/22/18) Subjective the pt is calm no agitation Objective Last 24 Hour Vital Signs Date Time Temp Pulse Resp B/P (MAP) Pulse Ox O2 Delivery O2 Flow Rate FiO2 05/25/18 12:30 91 22 92 Facial 60 05/25/18 11:54 84 05/25/18 11:13 94 20 91 Venturi Mask 15.0 55 05/25/18 11:00 90 16 91 Venturi Mask 15.0 55 05/25/18 08:00 97.2 84 24 139/84 (102) 91 05/25/18 08:00 15.0 05/25/18 08:00 Venturi Mask 05/25/18 07:49 90 20 91 Venturi Mask 15.0 55 05/25/18 07:36 90 20 90 Venturi Mask 15.0 55 05/25/18 07:35 83 20 90 05/25/18 07:19 82 05/25/18 05:14 76 22 92 Facial 60 05/25/18 04:00 98.2 81 21 135/75 (95) 94 05/25/18 04:00 60 05/25/18 04:00 77 05/25/18 04:00 Bi-pap 05/25/18 03:05 77 21 93 Facial 60 05/25/18 01:13 79 20 92 Bi-pap 60 05/25/18 01:13 79 21 92 Full Face 60 05/25/18 01:03 77 20 93 Bi-pap 60 05/25/18 00:00 Bi-pap 05/25/18 00:00 79 05/25/18 00:00 98.4 77 26 126/71 (89) 97 05/24/18 23:15 86 24 93 Facial 60 05/24/18 21:07 83 30 92 Facial 60 05/24/18 21:00 Bi-pap 05/24/18 20:00 60 05/24/18 20:00 98.7 83 24 130/76 (94) 95 05/24/18 20:00 80 05/24/18 19:25 81 22 94 Bi-pap 60 05/24/18 19:19 85 28 92 Facial 60 05/24/18 19:18 85 25 92 Bi-pap 60 05/24/18 16:42 89 27 94 Facial 60 05/24/18 16:00 85 05/24/18 16:00 Bi-pap 05/24/18 16:00 60 05/24/18 16:00 97.8 88 27 126/75 (92) 93 05/24/18 14:53 88 32 94 Facial 60 Intake and Output 05/24/18 05/25/18 19:00 07:00 Intake Total 55 ml 55 ml Balance 55 ml 55 ml Intake IV Total 55 ml 55 ml # Voids 2 3 Laboratory Tests 05/24/18 21:15: Ammonia 34H 05/25/18 10:45: Arterial Blood pH 7.471H, Arterial Blood Partial Pressure CO2 44.4, Arterial Blood Partial Pressure O2 65.5L, Arterial Blood HCO3 31.7H, Arterial Blood Oxygen Saturation 92.0L, Arterial Blood Base Excess 7.1H, Rahul Test Positive 05/25/18 10:50: White Blood Count 21.7H, Red Blood Count 5.26, Hemoglobin 16.3H, Hematocrit 48.3H, Mean Corpuscular Volume 92, Mean Corpuscular Hemoglobin 31.0, Mean Corpuscular Hemoglobin Concent 33.7, Red Cell Distribution Width 11.0L, Platelet Count 348, Mean Platelet Volume 5.9L, Neutrophils (%) (Auto) , Lymphocytes (%) (Auto) , Monocytes (%) (Auto) , Eosinophils (%) (Auto) , Basophils (%) (Auto) , Differential Total Cells Counted 100, Neutrophils % ( Manual) 70, Lymphocytes % (Manual) 8L, Monocytes % (Manual) 1, Eosinophils % ( Manual) 0, Basophils % (Manual) 0, Metamyelocytes % 1H, Band Neutrophils 20H, Platelet Estimate Adequate, Platelet Morphology Normal, Red Blood Cell Morphology Normal, Sodium Level 139, Potassium Level 4.1, Chloride Level 99, Carbon Dioxide Level 32, Anion Gap 8, Blood Urea Nitrogen 33H, Creatinine 0.7, Estimat Glomerular Filtration Rate > 60, Glucose Level 135H, Calcium Level 10.0 , Magnesium Level 2.1, Total Bilirubin 0.4, Aspartate Amino Transf (AST/SGOT) 23 , Alanine Aminotransferase (ALT/SGPT) 32, Alkaline Phosphatase 131H, Total Protein 7.8, Albumin 2.6L, Globulin 5.2, Albumin/Globulin Ratio 0.5L Height (Feet): 5 Height (Inches): 5.00 Weight (Pounds): 179 General Appearance: no apparent distress, alert Neurologic: oriented x 3, responsive, depressed affect Reagan Marshall MD May 25, 2018 13:53
--- NOTE | 2018-05-25 14:00 | NUR ---
NURSE NOTES: NOTED PULLING OFF BIPAP MASK. EXPLAINED RISK AND BENEFITS. NO SIGNS OF DISTRESS OF THE MOMENT. WILL CONTINUE TO MONITOR.
--- NOTE | 2018-05-25 15:53 | Nephrology Progress Note ---
Assessment/Plan Problem List: (1) Proteinuria (2) Hypoalbuminemia (3) COPD exacerbation (4) Schizoaffective disorder Assessment admitted with exacerbation COPD and Hypoxia High WBCs : UTI , Pneumonia Proteinuria and HypoAlbuminemia Plan BIPAP Antibiotics 24 h urine proteins CAN NOT BE COLLECTED UNLESS FOLEY_ WILL DEFER 2D echo Left ventricular ejection fraction grossly estimated to be 65 %. optimize cardiac status Subjective ROS Limited/Unobtainable: No Constitutional: Reports: malaise Objective Objective Last 24 Hour Vital Signs Date Time Temp Pulse Resp B/P (MAP) Pulse Ox O2 Delivery O2 Flow Rate FiO2 05/25/18 15:05 86 18 92 Bi-pap 60 05/25/18 14:57 80 16 91 Venturi Mask 15.0 55 05/25/18 14:57 55 05/25/18 14:56 80 16 92 Venturi Mask 15.0 55 05/25/18 12:30 91 22 92 Facial 60 05/25/18 12:00 60 05/25/18 12:00 98.2 85 18 138/79 (98) 91 05/25/18 12:00 Venturi Mask 05/25/18 11:54 84 05/25/18 11:13 94 20 91 Venturi Mask 15.0 55 05/25/18 11:00 90 16 91 Venturi Mask 15.0 55 05/25/18 08:00 97.2 84 24 139/84 (102) 91 05/25/18 08:00 15.0 05/25/18 08:00 Venturi Mask 05/25/18 07:49 90 20 91 Venturi Mask 15.0 55 05/25/18 07:36 90 20 90 Venturi Mask 15.0 55 05/25/18 07:35 83 20 90 05/25/18 07:19 82 05/25/18 05:14 76 22 92 Facial 60 05/25/18 04:00 98.2 81 21 135/75 (95) 94 05/25/18 04:00 60 05/25/18 04:00 77 05/25/18 04:00 Bi-pap 05/25/18 03:05 77 21 93 Facial 60 05/25/18 01:13 79 20 92 Bi-pap 60 05/25/18 01:13 79 21 92 Full Face 60 05/25/18 01:03 77 20 93 Bi-pap 60 05/25/18 00:00 Bi-pap 05/25/18 00:00 79 05/25/18 00:00 98.4 77 26 126/71 (89) 97 05/24/18 23:15 86 24 93 Facial 60 05/24/18 21:07 83 30 92 Facial 60 05/24/18 21:00 Bi-pap 05/24/18 20:00 60 05/24/18 20:00 98.7 83 24 130/76 (94) 95 05/24/18 20:00 80 05/24/18 19:25 81 22 94 Bi-pap 60 05/24/18 19:19 85 28 92 Facial 60 05/24/18 19:18 85 25 92 Bi-pap 60 05/24/18 16:42 89 27 94 Facial 60 05/24/18 16:00 85 05/24/18 16:00 Bi-pap 05/24/18 16:00 60 05/24/18 16:00 97.8 88 27 126/75 (92) 93 Intake and Output 05/24/18 05/25/18 19:00 07:00 Intake Total 55 ml 55 ml Balance 55 ml 55 ml Intake IV Total 55 ml 55 ml # Voids 2 3 Laboratory Tests 05/24/18 21:15: Ammonia 34H 05/25/18 10:45: Arterial Blood pH 7.471H, Arterial Blood Partial Pressure CO2 44.4, Arterial Blood Partial Pressure O2 65.5L, Arterial Blood HCO3 31.7H, Arterial Blood Oxygen Saturation 92.0L, Arterial Blood Base Excess 7.1H, Rahul Test Positive 05/25/18 10:50: White Blood Count 21.7H, Red Blood Count 5.26, Hemoglobin 16.3H, Hematocrit 48.3H, Mean Corpuscular Volume 92, Mean Corpuscular Hemoglobin 31.0, Mean Corpuscular Hemoglobin Concent 33.7, Red Cell Distribution Width 11.0L, Platelet Count 348, Mean Platelet Volume 5.9L, Neutrophils (%) (Auto) , Lymphocytes (%) (Auto) , Monocytes (%) (Auto) , Eosinophils (%) (Auto) , Basophils (%) (Auto) , Differential Total Cells Counted 100, Neutrophils % ( Manual) 70, Lymphocytes % (Manual) 8L, Monocytes % (Manual) 1, Eosinophils % ( Manual) 0, Basophils % (Manual) 0, Metamyelocytes % 1H, Band Neutrophils 20H, Platelet Estimate Adequate, Platelet Morphology Normal, Red Blood Cell Morphology Normal, Sodium Level 139, Potassium Level 4.1, Chloride Level 99, Carbon Dioxide Level 32, Anion Gap 8, Blood Urea Nitrogen 33H, Creatinine 0.7, Estimat Glomerular Filtration Rate > 60, Glucose Level 135H, Calcium Level 10.0 , Magnesium Level 2.1, Total Bilirubin 0.4, Aspartate Amino Transf (AST/SGOT) 23 , Alanine Aminotransferase (ALT/SGPT) 32, Alkaline Phosphatase 131H, Total Protein 7.8, Albumin 2.6L, Globulin 5.2, Albumin/Globulin Ratio 0.5L Height (Feet): 5 Height (Inches): 5.00 Weight (Pounds): 179 General Appearance: no apparent distress Cardiovascular: tachycardia Respiratory/Chest: decreased breath sounds Abdomen: distended Objective no change Seamus Morfin MD May 25, 2018 15:53
[2018-05-25 16:00] VITALS: BP 143/74
--- NOTE | 2018-05-25 16:40 | General Progress Note ---
Assessment/Plan Assessment/Plan (1) S/p fall (2) COPD Exacerbation (3) OA Patient to be continued on Tylenol D/w Dr. Garcia and he concurred. Subjective Date patient seen: May 25, 2018 Time patient seen: 03:30 - pm Allergies: Coded Allergies: No Known Allergies (Unverified , 05/22/18) Subjective Constitutional: Reports: weakness HEENT: Reports: no symptoms Cardiovascular: Reports: no symptoms Respiratory: Reports: shortness of breath Gastrointestinal/Abdominal: Reports: no symptoms Genitourinary: Reports: no symptoms Neurologic/Psychiatric: Reports: weakness Endocrine: Reports: no symptoms Hematologic/Lymphatic: Reports: no symptoms Subjective: Patient denies pain at this time. Objective Last 24 Hour Vital Signs Date Time Temp Pulse Resp B/P (MAP) Pulse Ox O2 Delivery O2 Flow Rate FiO2 05/25/18 16:00 89 05/25/18 16:00 Venturi Mask 05/25/18 16:00 60 05/25/18 15:05 86 18 92 Bi-pap 60 05/25/18 14:57 80 16 91 Venturi Mask 15.0 55 05/25/18 14:57 55 05/25/18 14:56 80 16 92 Venturi Mask 15.0 55 05/25/18 12:30 91 22 92 Facial 60 05/25/18 12:00 60 05/25/18 12:00 98.2 85 18 138/79 (98) 91 05/25/18 12:00 Venturi Mask 05/25/18 11:54 84 05/25/18 11:13 94 20 91 Venturi Mask 15.0 55 05/25/18 11:00 90 16 91 Venturi Mask 15.0 55 05/25/18 08:00 97.2 84 24 139/84 (102) 91 05/25/18 08:00 15.0 05/25/18 08:00 Venturi Mask 05/25/18 07:49 90 20 91 Venturi Mask 15.0 55 05/25/18 07:36 90 20 90 Venturi Mask 15.0 55 05/25/18 07:35 83 20 90 05/25/18 07:19 82 05/25/18 05:14 76 22 92 Facial 60 05/25/18 04:00 98.2 81 21 135/75 (95) 94 05/25/18 04:00 60 2/7/19 04:00 77 05/25/18 04:00 Bi-pap 05/25/18 03:05 77 21 93 Facial 60 05/25/18 01:13 79 20 92 Bi-pap 60 05/25/18 01:13 79 21 92 Full Face 60 05/25/18 01:03 77 20 93 Bi-pap 60 05/25/18 00:00 Bi-pap 05/25/18 00:00 79 05/25/18 00:00 98.4 77 26 126/71 (89) 97 05/24/18 23:15 86 24 93 Facial 60 05/24/18 21:07 83 30 92 Facial 60 05/24/18 21:00 Bi-pap 05/24/18 20:00 60 05/24/18 20:00 98.7 83 24 130/76 (94) 95 05/24/18 20:00 80 05/24/18 19:25 81 22 94 Bi-pap 60 05/24/18 19:19 85 28 92 Facial 60 05/24/18 19:18 85 25 92 Bi-pap 60 05/24/18 16:42 89 27 94 Facial 60 Intake and Output 05/24/18 05/25/18 19:00 07:00 Intake Total 55 ml 55 ml Balance 55 ml 55 ml Intake IV Total 55 ml 55 ml # Voids 2 3 Laboratory Tests 05/24/18 21:15: Ammonia 34H 05/25/18 10:45: Arterial Blood pH 7.471H, Arterial Blood Partial Pressure CO2 44.4, Arterial Blood Partial Pressure O2 65.5L, Arterial Blood HCO3 31.7H, Arterial Blood Oxygen Saturation 92.0L, Arterial Blood Base Excess 7.1H, Rahul Test Positive 05/25/18 10:50: White Blood Count 21.7H, Red Blood Count 5.26, Hemoglobin 16.3H, Hematocrit 48.3H, Mean Corpuscular Volume 92, Mean Corpuscular Hemoglobin 31.0, Mean Corpuscular Hemoglobin Concent 33.7, Red Cell Distribution Width 11.0L, Platelet Count 348, Mean Platelet Volume 5.9L, Neutrophils (%) (Auto) , Lymphocytes (%) (Auto) , Monocytes (%) (Auto) , Eosinophils (%) (Auto) , Basophils (%) (Auto) , Differential Total Cells Counted 100, Neutrophils % ( Manual) 70, Lymphocytes % (Manual) 8L, Monocytes % (Manual) 1, Eosinophils % ( Manual) 0, Basophils % (Manual) 0, Metamyelocytes % 1H, Band Neutrophils 20H, Platelet Estimate Adequate, Platelet Morphology Normal, Red Blood Cell Morphology Normal, Sodium Level 139, Potassium Level 4.1, Chloride Level 99, Carbon Dioxide Level 32, Anion Gap 8, Blood Urea Nitrogen 33H, Creatinine 0.7, Estimat Glomerular Filtration Rate > 60, Glucose Level 135H, Calcium Level 10.0 , Magnesium Level 2.1, Total Bilirubin 0.4, Aspartate Amino Transf (AST/SGOT) 23 , Alanine Aminotransferase (ALT/SGPT) 32, Alkaline Phosphatase 131H, Total Protein 7.8, Albumin 2.6L, Globulin 5.2, Albumin/Globulin Ratio 0.5L Height (Feet): 5 Height (Inches): 5.00 Weight (Pounds): 179 Objective General Appearance: no apparent distress, alert EENT: PERRL/EOMI Neck: non-tender, supple Cardiovascular: normal rate, regular rhythm Respiratory/Chest: decreased breath sounds Abdomen: non tender, soft Extremities: non-tender Edema: trace edema Neurologic: alert, oriented x 3 Skin: warm/dry Anjum Dumont May 25, 2018 16:40
--- NOTE | 2018-05-25 17:01 | General Progress Note ---
Assessment/Plan Assessment/Plan Assessment and Recs: # Leukocytosis - is likely related to infection/pna --> smear has been ordered --> esr and crp ordered as well ==> abx as per Dr. Cohen # Elevated d-dimer - r/o dvt of lower ext --> r/o pe as well [facility] cta study # Hypoxemia potentially copd related --> off bipap at this time --> bipap at night as per pulm # Hypercarbia # Benzodiazepine dependence # Psychosis # Sinus tach --> as per Dr. Ocampo The timing of this note does not necessarily reflect the time of the patient was seen. Greatly appreciate consultation! Subjective Constitutional: Denies: no symptoms, chills, diaphoresis, fever, malaise, weakness, other HEENT: Denies: no symptoms, eye pain, blurred vision, tearing, double vision, ear pain, ear discharge, nose pain, nose congestion, throat pain, throat swelling, mouth pain, mouth swelling, other Cardiovascular: Denies: no symptoms, chest pain, edema, irregular heart rate, lightheadedness, palpitations, syncope, other Respiratory: Denies: no symptoms, cough, orthopnea, shortness of breath, SOB with excertion, SOB at rest, sputum, stridor, wheezing, other Gastrointestinal/Abdominal: Denies: no symptoms, abdomen distended, abdominal pain, black stools, tarry stools, blood in stool, constipated, diarrhea, difficulty swallowing, nausea, poor appetite, poor fluid intake, rectal bleeding , vomiting, other Genitourinary: Denies: no symptoms, burning, discharge, frequency, flank pain, hematuria, incontinence, pain, urgency, other Neurologic/Psychiatric: Denies: no symptoms, anxiety, depressed, emotional problems, headache, numbness, paresthesia, pre-existing deficit, seizure, tingling, tremors, weakness, other Endocrine: Denies: no symptoms, excessive sweating, flushing, intolerance to cold, intolerance to heat, increased hunger, increased thirst, increased urine, unexplained weight gain, unexplained weight loss, other Hematologic/Lymphatic: Denies: no symptoms, anemia, easy bleeding, easy bruising, other Allergies: Coded Allergies: No Known Allergies (Unverified , 05/22/18) Subjective 5: on venturi mask, no new changes, mild fever today, no chills 2/6: Pt is seen by bedside, awake, comfortable, wbc trending up 05/25: hgb and wbc trending up, seen in the room, awake, bipap, no fevers or cills , Objective Last 24 Hour Vital Signs Date Time Temp Pulse Resp B/P (MAP) Pulse Ox O2 Delivery O2 Flow Rate FiO2 05/25/18 16:00 89 05/25/18 16:00 Venturi Mask 05/25/18 16:00 60 05/25/18 15:05 86 18 92 Bi-pap 60 05/25/18 14:57 80 16 91 Venturi Mask 15.0 55 05/25/18 14:57 55 05/25/18 14:56 80 16 92 Venturi Mask 15.0 55 05/25/18 12:30 91 22 92 Facial 60 05/25/18 12:00 60 05/25/18 12:00 98.2 85 18 138/79 (98) 91 05/25/18 12:00 Venturi Mask 05/25/18 11:54 84 05/25/18 11:13 94 20 91 Venturi Mask 15.0 55 05/25/18 11:00 90 16 91 Venturi Mask 15.0 55 05/25/18 08:00 97.2 84 24 139/84 (102) 91 05/25/18 08:00 15.0 05/25/18 08:00 Venturi Mask 05/25/18 07:49 90 20 91 Venturi Mask 15.0 55 05/25/18 07:36 90 20 90 Venturi Mask 15.0 55 05/25/18 07:35 83 20 90 05/25/18 07:19 82 05/25/18 05:14 76 22 92 Facial 60 05/25/18 04:00 98.2 81 21 135/75 (95) 94 05/25/18 04:00 60 05/25/18 04:00 77 05/25/18 04:00 Bi-pap 05/25/18 03:05 77 21 93 Facial 60 05/25/18 01:13 79 20 92 Bi-pap 60 05/25/18 01:13 79 21 92 Full Face 60 05/25/18 01:03 77 20 93 Bi-pap 60 05/25/18 00:00 Bi-pap 05/25/18 00:00 79 05/25/18 00:00 98.4 77 26 126/71 (89) 97 05/24/18 23:15 86 24 93 Facial 60 05/24/18 21:07 83 30 92 Facial 60 05/24/18 21:00 Bi-pap 05/24/18 20:00 60 05/24/18 20:00 98.7 83 24 130/76 (94) 95 05/24/18 20:00 80 05/24/18 19:25 81 22 94 Bi-pap 60 05/24/18 19:19 85 28 92 Facial 60 05/24/18 19:18 85 25 92 Bi-pap 60 Intake and Output 05/24/18 05/25/18 19:00 07:00 Intake Total 55 ml 55 ml Balance 55 ml 55 ml Intake IV Total 55 ml 55 ml # Voids 2 3 Laboratory Tests 05/24/18 21:15: Ammonia 34H 05/25/18 10:45: Arterial Blood pH 7.471H, Arterial Blood Partial Pressure CO2 44.4, Arterial Blood Partial Pressure O2 65.5L, Arterial Blood HCO3 31.7H, Arterial Blood Oxygen Saturation 92.0L, Arterial Blood Base Excess 7.1H, Rahul Test Positive 05/25/18 10:50: White Blood Count 21.7H, Red Blood Count 5.26, Hemoglobin 16.3H, Hematocrit 48.3H, Mean Corpuscular Volume 92, Mean Corpuscular Hemoglobin 31.0, Mean Corpuscular Hemoglobin Concent 33.7, Red Cell Distribution Width 11.0L, Platelet Count 348, Mean Platelet Volume 5.9L, Neutrophils (%) (Auto) , Lymphocytes (%) (Auto) , Monocytes (%) (Auto) , Eosinophils (%) (Auto) , Basophils (%) (Auto) , Differential Total Cells Counted 100, Neutrophils % ( Manual) 70, Lymphocytes % (Manual) 8L, Monocytes % (Manual) 1, Eosinophils % ( Manual) 0, Basophils % (Manual) 0, Metamyelocytes % 1H, Band Neutrophils 20H, Platelet Estimate Adequate, Platelet Morphology Normal, Red Blood Cell Morphology Normal, Sodium Level 139, Potassium Level 4.1, Chloride Level 99, Carbon Dioxide Level 32, Anion Gap 8, Blood Urea Nitrogen 33H, Creatinine 0.7, Estimat Glomerular Filtration Rate > 60, Glucose Level 135H, Calcium Level 10.0 , Magnesium Level 2.1, Total Bilirubin 0.4, Aspartate Amino Transf (AST/SGOT) 23 , Alanine Aminotransferase (ALT/SGPT) 32, Alkaline Phosphatase 131H, Total Protein 7.8, Albumin 2.6L, Globulin 5.2, Albumin/Globulin Ratio 0.5L Height (Feet): 5 Height (Inches): 5.00 Weight (Pounds): 179 Objective General Appearance: no apparent distress, GCS 15, non-toxic, other - sleepy Head: normocephalic, atraumatic Eyes: bilateral eye normal inspection, bilateral eye PERRL ENT: hearing grossly normal, normal pharynx, no angioedema, normal voice Neck: full range of motion, supple/symm/no masses Respiratory: chest non-tender, lungs clear, normal breath sounds Cardiovascular: regular rate, rhythm, no edema Gastrointestinal: normal bowel sounds, non tender Musculoskeletal: back normal, gait/station normal Jorje Troy MD May 25, 2018 17:01
--- NOTE | 2018-05-25 17:52 | Neurology Progress Note ---
Interim History Interim History Interim History Ms. Whitfield feels better. She feels that her mind is clearer. She also feels stronger generally. She was off BiPAP this morning but had to be put on it again for significant hypoxemia. She denies any new neurologic symptoms. She is still a little forgetful. Review of Systems Neuro Review of Systems Benign. Objective Physical Exam Last Vital Signs Date Time Temp Pulse Resp B/P (MAP) Pulse Ox O2 Delivery O2 Flow Rate FiO2 05/25/18 17:03 87 26 92 Facial 60 05/25/18 16:00 98.1 143/74 (97) 05/25/18 14:57 15.0 Laboratory Tests Test 05/24/18 21:15 05/25/18 10:45 05/25/18 10:50 Ammonia 34 umol/L (11-32) H Arterial Blood pH 7.471 (7.350-7.450) Arterial Blood Partial Pressure CO2 44.4 mmHg (35.0-45.0) Arterial Blood Partial Pressure O2 65.5 mmHg (75.0-100.0) L Arterial Blood HCO3 31.7 mmol/L (22.0-26.0) H Arterial Blood Oxygen Saturation 92.0 % (95-100) L Arterial Blood Base Excess 7.1 (-2-2) H Rahul Test Positive White Blood Count 21.7 K/UL (4.8-10.8) H Red Blood Count 5.26 M/UL (4.20-5.40) Hemoglobin 16.3 G/DL (12.0-16.0) H Hematocrit 48.3 % (37.0-47.0) H Mean Corpuscular Volume 92 FL (80-99) Mean Corpuscular Hemoglobin 31.0 PG (27.0-31.0) Mean Corpuscular Hemoglobin Concent 33.7 G/DL (32.0-36.0) Red Cell Distribution Width 11.0 % (11.6-14.8) L Platelet Count 348 K/UL (150-450) Mean Platelet Volume 5.9 FL (6.5-10.1) L Neutrophils (%) (Auto) % (45.0-75.0) Lymphocytes (%) (Auto) % (20.0-45.0) Monocytes (%) (Auto) % (1.0-10.0) Eosinophils (%) (Auto) % (0.0-3.0) Basophils (%) (Auto) % (0.0-2.0) Differential Total Cells Counted 100 Neutrophils % (Manual) 70 % (45-75) Lymphocytes % (Manual) 8 % (20-45) L Monocytes % (Manual) 1 % (1-10) Eosinophils % (Manual) 0 % (0-3) Basophils % (Manual) 0 % (0-2) Metamyelocytes % 1 % (0-0) H Band Neutrophils 20 % (0-8) H Platelet Estimate Adequate Platelet Morphology Normal Red Blood Cell Morphology Normal Sodium Level 139 MMOL/L (136-145) Potassium Level 4.1 MMOL/L (3.5-5.1) Chloride Level 99 MMOL/L (98-107) Carbon Dioxide Level 32 MMOL/L (21-32) Anion Gap 8 mmol/L (5-15) Blood Urea Nitrogen 33 mg/dL (7-18) H Creatinine 0.7 MG/DL (0.55-1.30) Estimat Glomerular Filtration Rate > 60 mL/min (>60) Glucose Level 135 MG/DL (74-106) H Calcium Level 10.0 MG/DL (8.5-10.1) Magnesium Level 2.1 MG/DL (1.8-2.4) Total Bilirubin 0.4 MG/DL (0.2-1.0) Aspartate Amino Transf (AST/SGOT) 23 U/L (15-37) Alanine Aminotransferase (ALT/SGPT) 32 U/L (12-78) Alkaline Phosphatase 131 U/L (46-116) H Total Protein 7.8 G/DL (6.4-8.2) Albumin 2.6 G/DL (3.4-5.0) L Globulin 5.2 g/dL Albumin/Globulin Ratio 0.5 (1.0-2.7) L Neurologic Exam Objective PHYSICAL EXAMINATION: GENERAL: She is a well-developed, well-nourished, pleasant lady, lying in bed with a BiPAP mask on. HEAD: Normocephalic and atraumatic. EENT: Examination benign NECK: No neck rigidity was observed. NEUROLOGICAL EXAMINATION: MENTAL STATUS EXAMINATION: She was awake and alert. She was oriented to person, place, and time except for the exact date. She was able to recall 3/3 words immediately after 1 minute and after 3 minutes. She was able to remember presidents, Trump through Arauz Gigi, but could not remember presidents prior to that. Her mathematical skills were good. Her visuospatial function was preserved. SPEECH: She had a significant dysarthria, but it should be noted that she was on a BiPAP mask. LANGUAGE: She had a mild anomia for low-frequency words. CRANIAL NERVE EXAMINATION: II: The visual beltran were intact on confrontation testing. III, IV & : The external ocular movements were full and the pupils 3 mm in diameter, equal, round, regular, and reactive to light. V: She had normal facial sensations, and the temporales, masseters, and pterygoids functioned normally. VII: She had normal facial expressions and no facial asymmetry. VIII: She was able to hear well bilaterally and had no nystagmus. IX: The palate moved symmetrically on phonation. X: She had no hoarseness of voice. XI: The sternocleidomastoids and trapezii functioned normally. XII: The tongue was in the midline without any fasciculations or atrophy. MOTOR SYSTEM: The tone was normal in all four extremities. Examination of muscle mass revealed no focal wasting. Examination of power revealed G 5/5 power except for G 4/5 power in the iliopsoas muscles bilaterally with some give-way weakness. SENSORY EXAMINATION: She had intact sensations to pinprick, light touch, and graphesthesia. COORDINATION: She performed well on [id number] testing. She was unable to perform [id number] testing. REFLEXES: Trace+ and bilaterally symmetrical at the biceps, triceps, brachioradialis, and knees, 0 at both ankles. The plantar responses were flexor bilaterally. STANCE: Could not be tested. GAIT: Could not be tested. Impression/Recommendations Diagnostic Impression 1. Ms Leigh Ann Whitfield is a 67-year-old, right-handed, lady, who does have a past history of hypertension, dyslipidemia, chronic obstructive pulmonary disease, hypothyroidism, schizoaffective disorder, and recent falls, who was hospitalized on 05/22/2018 for an altered mental state and a fall at her board and custodial. She was found to be hypoxic, hypercapnic, and had a significant leukocytosis. Since she has been in the hospital, she has improved. 2. She feels better. She feels that her mind is clearer. She also feels stronger generally. She was off BiPAP this morning but had to be put on it again for significant hypoxemia. She denies any new neurologic symptoms. She is still a little forgetful. 3. On neurological examination, at this time, she is disoriented to the exact date, has problems with memory, has a significant dysarthric speech, but she is on a BiPAP mask, has a mild anomia, has proximal bilateral lower extremity weakness of a symmetrical nature and globally diminished deep tendon reflexes. 4. Laboratory data on my initial evaluation revealed that she had a significant leukocytosis with a WBC count of 19,700. Her chemistry panel reveals that her uric acid level was elevated at 8.2, magnesium was low at 1.6. ProBNP that was elevated at 186, albumin was low at 2.5. Her B12 level was normal at 924. Her folate level was normal at 40.6. Her TSH was normal at 1.92 with a free T4 of 1.13. The Hemoglobin A1c was at 6%. Latest arterial blood gas revealed a pH at 7.37, pCO2 at 62, and pO2 at 56. Her urinalysis revealed 1+ leukocyte esterase, 0-2 red blood cells, and 2-4 white blood cells per high-power field. 5. Further laboratory tests have revealed a minimally elevated ammonia at 34 and the ABG done today revealed a low pO2 at 65. 6. The CT scan of the brain without contrast revealed atrophy and some deep white matter changes, but no acute pathology. 7. The patient's history, neurological examination, laboratory data, and imaging studies are most compatible with a toxic metabolic encephalopathy related to the hypoxia, hypercapnia, and an infectious process. Recommendations RECOMMENDATIONS: 1. Agree with management thus far. 2. Aggressive treatment of the patient's respiratory failure as per Dr. Membreno. 3. Aggressive treatment of the patient's infectious process as per Dr. Cohen. 4. Await EEG to evaluate the patient for the degree and type of encephalopathy. 5. Observe closely. Fransico Bolton M.D., M.S.P.H. Fransico Bolton MD May 25, 2018 17:52
--- NOTE | 2018-05-25 19:30 | NUR ---
NURSE NOTES: Report received from RAUL Hidalgo. Pt A/Ox2. vehicle monitor technician shows SR. Pt on continuous bipap 03/22 @ 60%. Pt currently NPO. Purewick in place. Urinalysis to be collected. Pt has a RAC20g patent and asymptomatic. No skin issues noted. Bilateral wrist restraints present. No skin breakdown noted or swelling. Will continue to monitor and with patients plan of care.
--- NOTE | 2018-05-25 19:30 | NUR ---
HAND-OFF: Report given to Kristen Reynaga RN.
[2018-05-25 20:00] VITALS: BP 137/76
[2018-05-25] MEDS: OLANZapine 10mg tab ORAL SCH (21:26)
[2018-05-26] VITALS: BP 136/79
[2018-05-26] MEDS: Albuterol/Ipratropium 3ml neb HHN SCH ×5 (03:14→19:08)
[2018-05-26 04:00] VITALS: BP 136/83
--- NOTE | 2018-05-26 07:29 | NUR ---
NURSE NOTES: Received report from RAUL Britton. Patient is resting in bed, in stable condition. No s/sx of SOB, breathing is even and unlabored, continuous BiPAP noted on, bilateral soft wrist restraints noted to be on for patient safety - patient noted taking off medical devices. Denies any presence of pain or discomfort at this time. Bed is in lowest position, brakes engaged. Call light is kept within easy reach. Will continue to monitor patient.
[2018-05-26 08:00] VITALS: BP 136/83
--- NOTE | 2018-05-26 08:39 | NUR ---
RESPIRATORY NOTE: PT RECEIVED STABLE ON BIPAP 03/22 BACK UP RATE :14 60%. ALARMS ON AND AUDIBLE. BIPAP CONNECTED TO RED OUTLET. BIPAP CIRCUIT AND AND MASK SECURE AND OUT OF THE WAY. NO SIGN OF SKIN BREAKDOWN NOTED AT THIS TIME. NO RESPIRATORY DISTRESS. WILL CONTINUE TO MONITOR.
[2018-05-26] MEDS: Solu-MEDROL 125mg Inj IVP SCH (08:49)
[2018-05-26] MEDS: Cefepime HCl 1 GM in D5W 55 ML IVPB SCH ×2 (08:49→20:26)
[2018-05-26] MEDS: Heparin 5000 units/ml inj SUBQ SCH ×2 (08:50→20:28)
--- NOTE | 2018-05-26 09:46 | Neurology Progress Note ---
Interim History Interim History Interim History Ms. Whitfield feels better generally. She feels that her mind is clear. She feels stronger generally. She was on BiPAP now. She denies any new neurologic symptoms. She is still a little forgetful. She wants to get off the mask and eat. Review of Systems Neuro Review of Systems Benign. Objective Physical Exam Last Vital Signs Date Time Temp Pulse Resp B/P (MAP) Pulse Ox O2 Delivery O2 Flow Rate FiO2 05/26/18 08:53 63 23 96 Facial 60 05/26/18 08:00 97.5 136/83 (100) 05/25/18 14:57 15.0 Laboratory Tests Test 05/25/18 10:45 05/25/18 10:50 05/26/18 06:00 Arterial Blood pH 7.471 (7.350-7.450) Arterial Blood Partial Pressure CO2 44.4 mmHg (35.0-45.0) Arterial Blood Partial Pressure O2 65.5 mmHg (75.0-100.0) L Arterial Blood HCO3 31.7 mmol/L (22.0-26.0) H Arterial Blood Oxygen Saturation 92.0 % (95-100) L Arterial Blood Base Excess 7.1 (-2-2) H Rahul Test Positive White Blood Count 21.7 K/UL (4.8-10.8) H Red Blood Count 5.26 M/UL (4.20-5.40) Hemoglobin 16.3 G/DL (12.0-16.0) H Hematocrit 48.3 % (37.0-47.0) H Mean Corpuscular Volume 92 FL (80-99) Mean Corpuscular Hemoglobin 31.0 PG (27.0-31.0) Mean Corpuscular Hemoglobin Concent 33.7 G/DL (32.0-36.0) Red Cell Distribution Width 11.0 % (11.6-14.8) L Platelet Count 348 K/UL (150-450) Mean Platelet Volume 5.9 FL (6.5-10.1) L Neutrophils (%) (Auto) % (45.0-75.0) Lymphocytes (%) (Auto) % (20.0-45.0) Monocytes (%) (Auto) % (1.0-10.0) Eosinophils (%) (Auto) % (0.0-3.0) Basophils (%) (Auto) % (0.0-2.0) Differential Total Cells Counted 100 Neutrophils % (Manual) 70 % (45-75) Lymphocytes % (Manual) 8 % (20-45) L Monocytes % (Manual) 1 % (1-10) Eosinophils % (Manual) 0 % (0-3) Basophils % (Manual) 0 % (0-2) Metamyelocytes % 1 % (0-0) H Band Neutrophils 20 % (0-8) H Platelet Estimate Adequate Platelet Morphology Normal Red Blood Cell Morphology Normal Sodium Level 139 MMOL/L (136-145) Potassium Level 4.1 MMOL/L (3.5-5.1) Chloride Level 99 MMOL/L (98-107) Carbon Dioxide Level 32 MMOL/L (21-32) Anion Gap 8 mmol/L (5-15) Blood Urea Nitrogen 33 mg/dL (7-18) H Creatinine 0.7 MG/DL (0.55-1.30) Estimat Glomerular Filtration Rate > 60 mL/min (>60) Glucose Level 135 MG/DL (74-106) H Calcium Level 10.0 MG/DL (8.5-10.1) Magnesium Level 2.1 MG/DL (1.8-2.4) Total Bilirubin 0.4 MG/DL (0.2-1.0) Aspartate Amino Transf (AST/SGOT) 23 U/L (15-37) Alanine Aminotransferase (ALT/SGPT) 32 U/L (12-78) Alkaline Phosphatase 131 U/L (46-116) H Total Protein 7.8 G/DL (6.4-8.2) Albumin 2.6 G/DL (3.4-5.0) L Globulin 5.2 g/dL Albumin/Globulin Ratio 0.5 (1.0-2.7) L Urine Opiates Screen Negative (NEGATIVE) Urine Barbiturates Screen Negative (NEGATIVE) Phencyclidine (PCP) Screen Negative (NEGATIVE) Urine Amphetamines Screen Negative (NEGATIVE) Urine Benzodiazepines Screen Negative (NEGATIVE) Urine Cocaine Screen Negative (NEGATIVE) Urine Marijuana (THC) Screen Negative (NEGATIVE) Neurologic Exam Objective PHYSICAL EXAMINATION: GENERAL: She is a well-developed, well-nourished, pleasant lady, lying in bed with a BiPAP mask on. HEAD: Normocephalic and atraumatic. EENT: Examination benign NECK: No neck rigidity was observed. NEUROLOGICAL EXAMINATION: MENTAL STATUS EXAMINATION: She was awake and alert. She was oriented to person, place, and time except for the exact date. She was able to recall 3/3 words immediately but could only remember 2/3 after 1 minute and after 3 minutes. She was able to remember presidents, Trump through Arauz Gigi with hints, but could not remember presidents prior to that. Her mathematical skills were good. Her visuospatial function was preserved. SPEECH: She had a significant dysarthria, but it should be noted that she was on a BiPAP mask. LANGUAGE: She had a mild anomia for low-frequency words. CRANIAL NERVE EXAMINATION: II: The visual beltran were intact on confrontation testing. III, IV & : The external ocular movements were full and the pupils 3 mm in diameter, equal, round, regular, and reactive to light. V: She had normal facial sensations, and the temporales, masseters, and pterygoids functioned normally. VII: She had normal facial expressions and no facial asymmetry. VIII: She was able to hear well bilaterally and had no nystagmus. IX: The palate moved symmetrically on phonation. X: She had no hoarseness of voice. XI: The sternocleidomastoids and trapezii functioned normally. XII: The tongue was in the midline without any fasciculations or atrophy. MOTOR SYSTEM: The tone was normal in all four extremities. Examination of muscle mass revealed no focal wasting. Examination of power revealed G 5/5 power except for G 4/5 power in the iliopsoas muscles bilaterally with some give-way weakness. SENSORY EXAMINATION: She had intact sensations to pinprick, light touch, and graphesthesia. COORDINATION: She performed well on [id number] testing. She was unable to perform [id number] testing. REFLEXES: Trace+ and bilaterally symmetrical at the biceps, triceps, brachioradialis, and knees, 0 at both ankles. The plantar responses were flexor bilaterally. STANCE: Could not be tested. GAIT: Could not be tested. Impression/Recommendations Diagnostic Impression 1. Ms Leigh Ann Whitfield is a 67-year-old, right-handed, lady, who does have a past history of hypertension, dyslipidemia, chronic obstructive pulmonary disease, hypothyroidism, schizoaffective disorder, and recent falls, who was hospitalized on 05/22/2018 for an altered mental state and a fall at her [facility] home. She was found to be hypoxic, hypercapnic, and had a significant leukocytosis. Since she has been in the hospital, she has improved. 2. She feels better generally. She feels that her mind is clear. She feels stronger generally. She was on BiPAP now. She denies any new neurologic symptoms. She is still a little forgetful. She wants to get off the mask and eat. 3. On neurological examination, at this time, she is disoriented to the exact date, has problems with recent and remote memory, has a significant dysarthric speech, but she is on a BiPAP mask, has a mild anomia, has proximal bilateral lower extremity weakness of a symmetrical nature and globally diminished deep tendon reflexes. 4. Laboratory data on my initial evaluation revealed that she had a significant leukocytosis with a WBC count of 19,700. Her chemistry panel reveals that her uric acid level was elevated at 8.2, magnesium was low at 1.6. ProBNP that was elevated at 186, albumin was low at 2.5. Her B12 level was normal at 924. Her folate level was normal at 40.6. Her TSH was normal at 1.92 with a free T4 of 1.13. The Hemoglobin A1c was at 6%. Latest arterial blood gas revealed a pH at 7.37, pCO2 at 62, and pO2 at 56. Her urinalysis revealed 1+ leukocyte esterase, 0-2 red blood cells, and 2-4 white blood cells per high-power field. 5. Further laboratory tests have revealed a minimally elevated ammonia at 34. 6. The last ABG done on 05/25/18 revealed a low pO2 at 65. 7. The CT scan of the brain without contrast revealed atrophy and some deep white matter changes, but no acute pathology. 8. The EGG done on 05/24/18 was normal in the awake and drowsy states. 9. The patient's history, neurological examination, laboratory data, and imaging studies are most compatible with a toxic metabolic encephalopathy related to the hypoxia, hypercapnia, and an infectious process. Recommendations RECOMMENDATIONS: 1. Agree with management thus far. 2. Aggressive treatment of the patient's respiratory failure as per Dr. Membreno. 3. Aggressive treatment of the patient's infectious process as per Dr. Cohen. 4. Observe closely. Fransico Bolton M.D., M.S.P.H. Fransico Bolton MD May 26, 2018 09:46
--- NOTE | 2018-05-26 11:56 | General Progress Note ---
Assessment/Plan Problem List: (1) Schizoaffective disorder ICD Codes: F25.9 - Schizoaffective disorder, unspecified SNOMED: 22978269 Status: stable Assessment/Plan cont prozac 20mg po qam cont zyprexa 10mg po qhs provided ro/st Subjective Neurologic/Psychiatric: Reports: anxiety, depressed, emotional problems Allergies: Coded Allergies: No Known Allergies (Unverified , 05/22/18) Subjective the pt is calm, more alert is not on benzos the pt wants to leave abg still abnormal Objective Last 24 Hour Vital Signs Date Time Temp Pulse Resp B/P (MAP) Pulse Ox O2 Delivery O2 Flow Rate FiO2 05/26/18 11:35 78 21 97 Bi-pap 60 05/26/18 11:25 76 22 93 Bi-pap 60 05/26/18 11:25 76 22 93 Facial 60 05/26/18 08:53 63 23 96 Facial 60 05/26/18 08:53 63 23 96 Bi-pap 60 05/26/18 08:53 63 23 96 Bi-pap 60 05/26/18 08:39 66 24 93 Bi-pap 60 05/26/18 08:39 60 05/26/18 08:39 66 24 93 Facial 60 05/26/18 08:39 66 24 93 Bi-pap 60 05/26/18 08:00 97.5 65 26 136/83 (100) 97 05/26/18 08:00 Bi-pap 05/26/18 08:00 60 05/26/18 05:30 69 18 98 Facial 60 05/26/18 04:00 60 05/26/18 04:00 97.6 73 18 136/83 (100) 96 05/26/18 04:00 Bi-pap 05/26/18 03:56 69 05/26/18 03:25 65 23 97 Bi-pap 60 05/26/18 03:16 69 19 97 Facial 60 05/26/18 03:14 62 23 97 Bi-pap 60 05/26/18 01:37 71 19 97 Facial 60 05/26/18 00:00 60 05/26/18 00:00 Bi-pap 05/26/18 00:00 98.3 74 21 136/79 (98) 95 05/26/18 00:00 81 05/25/18 23:44 79 20 96 Bi-pap 60 05/25/18 23:36 72 19 91 Bi-pap 60 05/25/18 23:01 74 19 94 Facial 60 05/25/18 21:40 79 20 92 Facial 60 05/25/18 20:00 Bi-pap 05/25/18 20:00 98.8 85 30 137/76 (96) 95 05/25/18 20:00 81 05/25/18 20:00 60 05/25/18 19:49 83 21 94 Bi-pap 60 05/25/18 19:49 83 21 94 Bi-pap 60 05/25/18 19:39 55 05/25/18 19:39 83 16 93 Bi-pap 60 05/25/18 19:39 83 16 92 Bi-pap 60 05/25/18 19:05 82 15 93 Facial 60 05/25/18 17:03 87 26 92 Facial 60 05/25/18 16:00 98.1 86 21 143/74 (97) 94 05/25/18 16:00 89 05/25/18 16:00 Venturi Mask 05/25/18 16:00 60 05/25/18 15:15 91 20 91 Facial 60 05/25/18 15:05 86 18 92 Bi-pap 60 05/25/18 14:57 80 16 91 Venturi Mask 15.0 55 05/25/18 14:57 55 05/25/18 14:56 80 16 92 Venturi Mask 15.0 55 05/25/18 12:30 91 22 92 Facial 60 05/25/18 12:00 60 05/25/18 12:00 98.2 85 18 138/79 (98) 91 05/25/18 12:00 Venturi Mask Intake and Output 05/25/18 05/26/18 19:00 07:00 Intake Total 110 ml 55 ml Output Total 150 ml Balance 110 ml -95 ml Intake IV Total 110 ml 55 ml Output Urine Total 150 ml # Voids 3 3 # Bowel Movements 2 Laboratory Tests 05/26/18 06:00: Urine Opiates Screen Negative, Urine Barbiturates Screen Negative, Phencyclidine (PCP) Screen Negative, Urine Amphetamines Screen Negative, Urine Benzodiazepines Screen Negative, Urine Cocaine Screen Negative, Urine Marijuana (THC) Screen Negative Height (Feet): 5 Height (Inches): 5.00 Weight (Pounds): 179 General Appearance: no apparent distress, alert, overweight Neurologic: oriented x 3, responsive, depressed affect Reagan Marshall MD May 26, 2018 11:56
[2018-05-26 12:00] VITALS: BP 143/90
--- NOTE | 2018-05-26 13:10 | Cardiac Electrophysiology PN ---
Assessment/Plan Assessment/Plan 1. Acute shortness of breath due to COPD. On and off on BIPAP and Abx per Dr. Membreno Ruled out for [place]. EF 65%. On Lasix 40 iv daily. May need Tracheostomy 2. Elevated white count, likely pneumonia, on BiPAP. Antibiotic per Dr. Cohen. 3. History of psychosis. 4. Sinus tach due to PNA. No fib DW RN Subjective Subjective Back on BIPAP , alert in NAD. RN at bedside. Objective Last 24 Hour Vital Signs Date Time Temp Pulse Resp B/P (MAP) Pulse Ox O2 Delivery O2 Flow Rate FiO2 05/26/18 12:00 97.4 78 22 143/90 (107) 95 05/26/18 12:00 60 05/26/18 12:00 Bi-pap 05/26/18 11:35 78 21 97 Bi-pap 60 05/26/18 11:25 76 22 93 Bi-pap 60 05/26/18 11:25 76 22 93 Facial 60 05/26/18 08:53 63 23 96 Facial 60 05/26/18 08:53 63 23 96 Bi-pap 60 05/26/18 08:53 63 23 96 Bi-pap 60 05/26/18 08:39 66 24 93 Bi-pap 60 05/26/18 08:39 60 05/26/18 08:39 66 24 93 Facial 60 05/26/18 08:39 66 24 93 Bi-pap 60 05/26/18 08:00 72 05/26/18 08:00 97.5 65 26 136/83 (100) 97 05/26/18 08:00 Bi-pap 05/26/18 08:00 60 05/26/18 05:30 69 18 98 Facial 60 05/26/18 04:00 60 05/26/18 04:00 97.6 73 18 136/83 (100) 96 05/26/18 04:00 Bi-pap 05/26/18 03:56 69 05/26/18 03:25 65 23 97 Bi-pap 60 05/26/18 03:16 69 19 97 Facial 60 05/26/18 03:14 62 23 97 Bi-pap 60 05/26/18 01:37 71 19 97 Facial 60 05/26/18 00:00 60 05/26/18 00:00 Bi-pap 05/26/18 00:00 98.3 74 21 136/79 (98) 95 05/26/18 00:00 81 05/25/18 23:44 79 20 96 Bi-pap 60 05/25/18 23:36 72 19 91 Bi-pap 60 05/25/18 23:01 74 19 94 Facial 60 05/25/18 21:40 79 20 92 Facial 60 05/25/18 20:00 Bi-pap 05/25/18 20:00 98.8 85 30 137/76 (96) 95 05/25/18 20:00 81 05/25/18 20:00 60 05/25/18 19:49 83 21 94 Bi-pap 60 05/25/18 19:49 83 21 94 Bi-pap 60 05/25/18 19:39 55 05/25/18 19:39 83 16 93 Bi-pap 60 05/25/18 19:39 83 16 92 Bi-pap 60 05/25/18 19:05 82 15 93 Facial 60 05/25/18 17:03 87 26 92 Facial 60 05/25/18 16:00 98.1 86 21 143/74 (97) 94 05/25/18 16:00 89 05/25/18 16:00 Venturi Mask 05/25/18 16:00 60 05/25/18 15:15 91 20 91 Facial 60 05/25/18 15:05 86 18 92 Bi-pap 60 05/25/18 14:57 80 16 91 Venturi Mask 15.0 55 05/25/18 14:57 55 05/25/18 14:56 80 16 92 Venturi Mask 15.0 55 Intake and Output 05/25/18 05/26/18 19:00 07:00 Intake Total 110 ml 55 ml Output Total 150 ml Balance 110 ml -95 ml Intake IV Total 110 ml 55 ml Output Urine Total 150 ml # Voids 3 3 # Bowel Movements 2 Laboratory Tests Test 05/26/18 06:00 Urine Opiates Screen Negative (NEGATIVE) Urine Barbiturates Screen Negative (NEGATIVE) Phencyclidine (PCP) Screen Negative (NEGATIVE) Urine Amphetamines Screen Negative (NEGATIVE) Urine Benzodiazepines Screen Negative (NEGATIVE) Urine Cocaine Screen Negative (NEGATIVE) Urine Marijuana (THC) Screen Negative (NEGATIVE) Objective HEAD AND NECK: No JVD.BIPAP is on. LUNGS: Coarse rhonchi. CARDIOVASCULAR: Tachy regular S1 and S2 no M/G/R ABDOMEN: Soft. EXTREMITIES: No pitting edema. Zane Ocampo MD May 26, 2018 13:10
--- NOTE | 2018-05-26 14:26 | NUR ---
NURSE NOTES: Dr. Membreno at nurse station, Dr. Membreno ordered patient BiPAP as QHS and PRN with same settings: 12/5 28% FiO2. Orders entered, noted, and carried out. Will continue to monitor patient.
--- NOTE | 2018-05-26 14:37 | NUR ---
RD ASSESSMENT & RECOMMENDATIONS SEE CARE ACTIVITY FOR COMPLETE ASSESSMENT DAILY ESTIMATED NEEDS: Needs based on Pulmonary 62.6kg adj 25-30 kcals/kg [id number] total kcals 1-1.5 g protein/kg 63-94 g total protein Fluid per MD, on lasix NUTRITION DIAGNOSIS: Swallowing difficulty r/t respiratory status as evidenced by pt on Bipap/ full face, remains NPO from adm day 4. CURRENT DIET: NPO PO DIET RECOMMENDATIONS: HAND [employer] EVAL ENTERAL NUTRITION RECOMMENDATIONS: Glucerna 1.2 @55ml /hr x24 hrs to provide 1320ml, 1584 kcal, 79g prot, 1063ml free H2O - If pt remains aspiration risk, rec non- oral feeds to meet est nutritional needs - Obtain GI access, start Glucerna 1.2 @25ml/hr for 6 hrs - Advance as tolerated 10ml/hr q4-6 hrs to goal - Flush per MD. HOb over 30 degrees ADDITIONAL RECOMMENDATIONS: * TF recs as needed-> NPO day 4 * Calibrated bed scale wts * On lasix-> monitor lytes daily, pt may have fluid and water deficits * Monitor BG on solumedrol, needs for hypoglycemics * HAND [employer]ER eval for aspiration risk as needed
--- NOTE | 2018-05-26 15:00 | NUR ---
NURSE NOTES: Dr. Dutta made aware that patient is no longer on continuous BiPAP, but still NPO. acknowledged and ordered speech evaluation and order speech therapist recommendations for diet. Noted.
--- NOTE | 2018-05-26 15:08 | Infectious Diseases Prog Note ---
Assessment/Plan Assessment/Plan A; Chronic obstructive pulmonary disease exacerbation, leukocytosis; schizoaffective disorder, hypothyroidism, hyperlipidemia, hypertension. Positive blood culture with CoANS P: Continue Cefepime repeat CXR & CBC tomorrow Subjective ROS Limited/Unobtainable: Yes Respiratory: Reports: shortness of breath Psychiatric: Reports: other - on restraint Allergies: Coded Allergies: No Known Allergies (Unverified , 05/22/18) Objective Vital Signs Last 24 Hour Vital Signs Date Time Temp Pulse Resp B/P (MAP) Pulse Ox O2 Delivery O2 Flow Rate FiO2 05/26/18 13:42 76 25 95 Bi-pap 60 05/26/18 13:25 60 05/26/18 13:25 68 22 95 Full Face 60 05/26/18 13:25 98 22 95 Bi-pap 60 05/26/18 12:00 97.4 78 22 143/90 (107) 95 05/26/18 12:00 78 05/26/18 12:00 60 05/26/18 12:00 Bi-pap 05/26/18 11:35 78 21 97 Bi-pap 60 05/26/18 11:25 76 22 93 Bi-pap 60 05/26/18 11:25 76 22 93 Facial 60 05/26/18 08:53 63 23 96 Facial 60 05/26/18 08:53 63 23 96 Bi-pap 60 05/26/18 08:53 63 23 96 Bi-pap 60 05/26/18 08:39 66 24 93 Bi-pap 60 05/26/18 08:39 60 05/26/18 08:39 66 24 93 Facial 60 05/26/18 08:39 66 24 93 Bi-pap 60 05/26/18 08:00 72 05/26/18 08:00 97.5 65 26 136/83 (100) 97 05/26/18 08:00 Bi-pap 05/26/18 08:00 60 05/26/18 05:30 69 18 98 Facial 60 05/26/18 04:00 60 05/26/18 04:00 97.6 73 18 136/83 (100) 96 05/26/18 04:00 Bi-pap 05/26/18 03:56 69 05/26/18 03:25 65 23 97 Bi-pap 60 05/26/18 03:16 69 19 97 Facial 60 05/26/18 03:14 62 23 97 Bi-pap 60 05/26/18 01:37 71 19 97 Facial 60 05/26/18 00:00 60 05/26/18 00:00 Bi-pap 05/26/18 00:00 98.3 74 21 136/79 (98) 95 05/26/18 00:00 81 05/25/18 23:44 79 20 96 Bi-pap 60 05/25/18 23:36 72 19 91 Bi-pap 60 05/25/18 23:01 74 19 94 Facial 60 05/25/18 21:40 79 20 92 Facial 60 05/25/18 20:00 Bi-pap 05/25/18 20:00 98.8 85 30 137/76 (96) 95 05/25/18 20:00 81 05/25/18 20:00 60 05/25/18 19:49 83 21 94 Bi-pap 60 05/25/18 19:49 83 21 94 Bi-pap 60 05/25/18 19:39 55 05/25/18 19:39 83 16 93 Bi-pap 60 05/25/18 19:39 83 16 92 Bi-pap 60 05/25/18 19:05 82 15 93 Facial 60 05/25/18 17:03 87 26 92 Facial 60 05/25/18 16:00 98.1 86 21 143/74 (97) 94 05/25/18 16:00 89 05/25/18 16:00 Venturi Mask 05/25/18 16:00 60 05/25/18 15:15 91 20 91 Facial 60 Height (Feet): 5 Height (Inches): 5.00 Weight (Pounds): 179 HEENT: mucous membranes moist Respiratory/Chest: lungs clear, other - Oxygen by mask Cardiovascular: normal rate Abdomen: soft, non tender Extremities: other - vic ankle edema Neurologic/Psychiatric: alert, responsive, disoriented Laboratory Tests Test 05/26/18 06:00 Urine Opiates Screen Negative (NEGATIVE) Urine Barbiturates Screen Negative (NEGATIVE) Phencyclidine (PCP) Screen Negative (NEGATIVE) Urine Amphetamines Screen Negative (NEGATIVE) Urine Benzodiazepines Screen Negative (NEGATIVE) Urine Cocaine Screen Negative (NEGATIVE) Urine Marijuana (THC) Screen Negative (NEGATIVE) Current Medications Medications (Trade) Dose Ordered Sig/Salty Route PRN Reason Start Time Stop Time Status Last Admin Dose Admin Acetaminophen (Tylenol) 500 mg Q4H PRN ORAL Mild Pain/Temp > 100.5 05/23/18 07:30 06/22/18 07:29 05/24/18 09:44 Acetylcysteine (Mucomyst) 100 mg TIDRT N 05/25/18 13:00 06/24/18 12:59 05/26/18 13:25 Albuterol/ Ipratropium (Albuterol/ Ipratropium) 3 ml Q4H PRN N Shortness of Breath 05/22/18 19:45 05/27/18 19:44 05/26/18 13:25 Albuterol/ Ipratropium (Albuterol/ Ipratropium) 3 ml Q4HRT N 05/25/18 11:00 05/28/18 00:59 05/26/18 11:39 Cefepime HCl 1 gm/ Dextrose 55 ml @ 110 mls/hr EVERY 12 HOURS IVPB 05/22/18 21:00 05/29/18 20:59 05/26/18 08:49 Fluoxetine HCl (PROzac) 20 mg DAILY ORAL 05/23/18 11:45 06/22/18 11:44 05/26/18 08:49 Furosemide (Lasix) 40 mg DAILY IV 05/23/18 09:00 06/22/18 08:59 05/26/18 08:49 Heparin Sodium (Porcine) (Heparin 5000 units/ml) 5,000 units EVERY 12 HOURS SUBQ 05/22/18 21:00 06/21/18 20:59 05/26/18 08:50 Methylprednisolone Sodium Succinate (Solu-MEDROL) 60 mg DAILY IVP 05/24/18 09:00 06/23/18 08:59 05/26/18 08:49 Olanzapine (ZyPREXA) 10 mg BEDTIME ORAL 05/23/18 21:00 06/22/18 20:59 05/25/18 21:26 Migel Cohen MD May 26, 2018 15:08
--- NOTE | 2018-05-26 15:11 | General Progress Note ---
Assessment/Plan Assessment/Plan Assessment and Recs: # Leukocytosis - is likely related to infection/pna --> smear has been reviewed and only 1% metamyelocytes noted, not significant finding --> esr and crp elevated ==> abx as per Dr. Cohen, currently on cefepime # Elevated d-dimer - r/o dvt of lower ext --> venous duplex negative scan --> likely elevated due to many possible reasons # Hypoxemia potentially copd related --> off bipap at this time --> bipap at night as per pulm # Hypercarbia # Benzodiazepine dependence # Psychosis # Sinus tach --> as per Dr. Ocampo The timing of this note does not necessarily reflect the time of the patient was seen. Greatly appreciate consultation! Subjective Constitutional: Denies: no symptoms, chills, diaphoresis, fever, malaise, weakness, other HEENT: Denies: no symptoms, eye pain, blurred vision, tearing, double vision, ear pain, ear discharge, nose pain, nose congestion, throat pain, throat swelling, mouth pain, mouth swelling, other Cardiovascular: Denies: no symptoms, chest pain, edema, irregular heart rate, lightheadedness, palpitations, syncope, other Respiratory: Denies: no symptoms, cough, orthopnea, shortness of breath, SOB with excertion, SOB at rest, sputum, stridor, wheezing, other Gastrointestinal/Abdominal: Denies: no symptoms, abdomen distended, abdominal pain, black stools, tarry stools, blood in stool, constipated, diarrhea, difficulty swallowing, nausea, poor appetite, poor fluid intake, rectal bleeding , vomiting, other Genitourinary: Denies: no symptoms, burning, discharge, frequency, flank pain, hematuria, incontinence, pain, urgency, other Neurologic/Psychiatric: Denies: no symptoms, anxiety, depressed, emotional problems, headache, numbness, paresthesia, pre-existing deficit, seizure, tingling, tremors, weakness, other Endocrine: Denies: no symptoms, excessive sweating, flushing, intolerance to cold, intolerance to heat, increased hunger, increased thirst, increased urine, unexplained weight gain, unexplained weight loss, other Hematologic/Lymphatic: Denies: no symptoms, anemia, easy bleeding, easy bruising, other Allergies: Coded Allergies: No Known Allergies (Unverified , 05/22/18) Subjective 05/23: on venturi mask, no new changes, mild fever today, no chills 05/24: Pt is seen by bedside, awake, comfortable, wbc trending up 05/25: hgb and wbc trending up, seen in the room, awake, bipap, no fevers or cills , 05/26: no new changes, no fever, no chills, Back on BIPAP Objective Last 24 Hour Vital Signs Date Time Temp Pulse Resp B/P (MAP) Pulse Ox O2 Delivery O2 Flow Rate FiO2 05/26/18 13:42 76 25 95 Bi-pap 60 05/26/18 13:25 60 05/26/18 13:25 68 22 95 Full Face 60 05/26/18 13:25 98 22 95 Bi-pap 60 05/26/18 12:00 97.4 78 22 143/90 (107) 95 05/26/18 12:00 78 05/26/18 12:00 60 05/26/18 12:00 Bi-pap 05/26/18 11:35 78 21 97 Bi-pap 60 05/26/18 11:25 76 22 93 Bi-pap 60 05/26/18 11:25 76 22 93 Facial 60 05/26/18 08:53 63 23 96 Facial 60 05/26/18 08:53 63 23 96 Bi-pap 60 05/26/18 08:53 63 23 96 Bi-pap 60 05/26/18 08:39 66 24 93 Bi-pap 60 05/26/18 08:39 60 05/26/18 08:39 66 24 93 Facial 60 05/26/18 08:39 66 24 93 Bi-pap 60 05/26/18 08:00 72 05/26/18 08:00 97.5 65 26 136/83 (100) 97 05/26/18 08:00 Bi-pap 05/26/18 08:00 60 05/26/18 05:30 69 18 98 Facial 60 05/26/18 04:00 60 05/26/18 04:00 97.6 73 18 136/83 (100) 96 05/26/18 04:00 Bi-pap 05/26/18 03:56 69 05/26/18 03:25 65 23 97 Bi-pap 60 05/26/18 03:16 69 19 97 Facial 60 05/26/18 03:14 62 23 97 Bi-pap 60 05/26/18 01:37 71 19 97 Facial 60 05/26/18 00:00 60 05/26/18 00:00 Bi-pap 05/26/18 00:00 98.3 74 21 136/79 (98) 95 05/26/18 00:00 81 05/25/18 23:44 79 20 96 Bi-pap 60 05/25/18 23:36 72 19 91 Bi-pap 60 05/25/18 23:01 74 19 94 Facial 60 05/25/18 21:40 79 20 92 Facial 60 05/25/18 20:00 Bi-pap 05/25/18 20:00 98.8 85 30 137/76 (96) 95 05/25/18 20:00 81 05/25/18 20:00 60 05/25/18 19:49 83 21 94 Bi-pap 60 05/25/18 19:49 83 21 94 Bi-pap 60 05/25/18 19:39 55 05/25/18 19:39 83 16 93 Bi-pap 60 05/25/18 19:39 83 16 92 Bi-pap 60 05/25/18 19:05 82 15 93 Facial 60 05/25/18 17:03 87 26 92 Facial 60 05/25/18 16:00 98.1 86 21 143/74 (97) 94 05/25/18 16:00 89 05/25/18 16:00 Venturi Mask 05/25/18 16:00 60 05/25/18 15:15 91 20 91 Facial 60 Intake and Output 05/25/18 05/26/18 19:00 07:00 Intake Total 110 ml 55 ml Output Total 150 ml Balance 110 ml -95 ml Intake IV Total 110 ml 55 ml Output Urine Total 150 ml # Voids 3 3 # Bowel Movements 2 Laboratory Tests 05/26/18 06:00: Urine Opiates Screen Negative, Urine Barbiturates Screen Negative, Phencyclidine (PCP) Screen Negative, Urine Amphetamines Screen Negative, Urine Benzodiazepines Screen Negative, Urine Cocaine Screen Negative, Urine Marijuana (THC) Screen Negative Height (Feet): 5 Height (Inches): 5.00 Weight (Pounds): 179 Objective General Appearance: no apparent distress, GCS 15, non-toxic, other - sleepy Head: normocephalic, atraumatic Eyes: bilateral eye normal inspection, bilateral eye PERRL ENT: hearing grossly normal, normal pharynx, no angioedema, normal voice Neck: full range of motion, supple/symm/no masses Respiratory: chest non-tender, lungs clear, normal breath sounds Cardiovascular: regular rate, rhythm, no edema Gastrointestinal: normal bowel sounds, non tender Musculoskeletal: back normal, gait/station normal Jorje Troy MD May 26, 2018 15:11
--- NOTE | 2018-05-26 15:22 | Nephrology Progress Note ---
Assessment/Plan Problem List: (1) Proteinuria (2) Hypoalbuminemia (3) COPD exacerbation (4) Schizoaffective disorder Assessment admitted with exacerbation COPD and Hypoxia High WBCs : UTI , Pneumonia Proteinuria and HypoAlbuminemia Plan BIPAP Antibiotics 24 h urine proteins CAN NOT BE COLLECTED UNLESS FOLEY_ WILL DEFER 2D echo Left ventricular ejection fraction grossly estimated to be 65 %. optimize cardiac status Subjective ROS Limited/Unobtainable: No Objective Objective Last 24 Hour Vital Signs Date Time Temp Pulse Resp B/P (MAP) Pulse Ox O2 Delivery O2 Flow Rate FiO2 05/26/18 13:42 76 25 95 Bi-pap 60 05/26/18 13:25 60 05/26/18 13:25 68 22 95 Full Face 60 05/26/18 13:25 98 22 95 Bi-pap 60 05/26/18 12:00 97.4 78 22 143/90 (107) 95 05/26/18 12:00 78 05/26/18 12:00 60 05/26/18 12:00 Bi-pap 05/26/18 11:35 78 21 97 Bi-pap 60 05/26/18 11:25 76 22 93 Bi-pap 60 05/26/18 11:25 76 22 93 Facial 60 05/26/18 08:53 63 23 96 Facial 60 05/26/18 08:53 63 23 96 Bi-pap 60 05/26/18 08:53 63 23 96 Bi-pap 60 05/26/18 08:39 66 24 93 Bi-pap 60 05/26/18 08:39 60 05/26/18 08:39 66 24 93 Facial 60 05/26/18 08:39 66 24 93 Bi-pap 60 05/26/18 08:00 72 05/26/18 08:00 97.5 65 26 136/83 (100) 97 05/26/18 08:00 Bi-pap 05/26/18 08:00 60 05/26/18 05:30 69 18 98 Facial 60 05/26/18 04:00 60 05/26/18 04:00 97.6 73 18 136/83 (100) 96 05/26/18 04:00 Bi-pap 05/26/18 03:56 69 05/26/18 03:25 65 23 97 Bi-pap 60 05/26/18 03:16 69 19 97 Facial 60 05/26/18 03:14 62 23 97 Bi-pap 60 05/26/18 01:37 71 19 97 Facial 60 05/26/18 00:00 60 05/26/18 00:00 Bi-pap 05/26/18 00:00 98.3 74 21 136/79 (98) 95 05/26/18 00:00 81 05/25/18 23:44 79 20 96 Bi-pap 60 05/25/18 23:36 72 19 91 Bi-pap 60 05/25/18 23:01 74 19 94 Facial 60 05/25/18 21:40 79 20 92 Facial 60 05/25/18 20:00 Bi-pap 05/25/18 20:00 98.8 85 30 137/76 (96) 95 05/25/18 20:00 81 05/25/18 20:00 60 05/25/18 19:49 83 21 94 Bi-pap 60 05/25/18 19:49 83 21 94 Bi-pap 60 05/25/18 19:39 55 05/25/18 19:39 83 16 93 Bi-pap 60 05/25/18 19:39 83 16 92 Bi-pap 60 05/25/18 19:05 82 15 93 Facial 60 05/25/18 17:03 87 26 92 Facial 60 05/25/18 16:00 98.1 86 21 143/74 (97) 94 05/25/18 16:00 89 05/25/18 16:00 Venturi Mask 05/25/18 16:00 60 Intake and Output 05/25/18 05/26/18 19:00 07:00 Intake Total 110 ml 55 ml Output Total 150 ml Balance 110 ml -95 ml Intake IV Total 110 ml 55 ml Output Urine Total 150 ml # Voids 3 3 # Bowel Movements 2 Laboratory Tests 05/26/18 06:00: Urine Opiates Screen Negative, Urine Barbiturates Screen Negative, Phencyclidine (PCP) Screen Negative, Urine Amphetamines Screen Negative, Urine Benzodiazepines Screen Negative, Urine Cocaine Screen Negative, Urine Marijuana (THC) Screen Negative Height (Feet): 5 Height (Inches): 5.00 Weight (Pounds): 179 General Appearance: no apparent distress EENT: other - on BIPAP Cardiovascular: normal rate Respiratory/Chest: decreased breath sounds Abdomen: distended Objective no change Seamus Morfin MD May 26, 2018 15:22
--- NOTE | 2018-05-26 15:30 | Electroencephalogram ---
DATE OF PROCEDURE: 05/24/2018 PROCEDURE PERFORMED: Electroencephalogram. REQUESTING PHYSICIAN: Margot Dutta M.D. HISTORY: This EEG was performed on a 67-year-old lady with a history of multiple medical problems, who was noted to have an altered mental state. The purpose of this EEG was to evaluate the patient for the degree and type of cerebral dysfunction. TECHNICAL NOTE: This EEG was performed on a [employer] with electrodes placed on the scalp according to the International 10-20 system. [id number] and [id number] montages were used. The EEG was technically satisfactory and was performed in the awake and drowsy states. OBSERVATIONS: In the best awake state, the background activity consisted of 9-10 Hz posteriorly predominant, well-developed, alpha waveforms, which attenuated on eye opening. Drowsiness was characterized by slowing of the background in the 5-6 Hz theta range. No focal abnormalities or epileptiform discharges were seen. IMPRESSION: Normal awake and drowsy EEG. Fransico Bolton M.D., M.S.P.H. DR: Mac JOB#: [id number] VASILE
--- NOTE | 2018-05-26 15:30 | NUR ---
NURSE NOTES: Spoke with speech therapist, Mary Kate Mitchell, regarding ST evaluation consult. Speech therapist recommended NGT insertion 12 nepali and follow insurance collector recommendations for tube feeding. Noted.
--- NOTE | 2018-05-26 15:45 | NUR ---
NURSE NOTES: Contacted Dr. Dutta and informed MD of speech therapist recommendations. Dr. Dutta acknowledged and ordered to verify with Dr. Membreno (globe changer) if NGT is insertion is okay with pulmonology perspective. Noted.
[2018-05-26 16:00] VITALS: BP 133/74
--- NOTE | 2018-05-26 16:01 | NUR ---
NURSE NOTES: Contacted Dr. Membreno and informed Dr. Membreno of speech therapist recommendations to insert NGT and put on tube feeding. Dr. Membreno acknowledged and ordered, NGT insertion is okay, turn off tube feeding 2 hours before putting on BiPAP, tube feeding is to never be on while BiPAP is on. Orders entered, noted, and carried out. Will continue to monitor patient.
--- NOTE | 2018-05-26 17:00 | NUR ---
NURSE NOTES: 12 frisian NGT inserted with charge nurse and primary RN, as ordered. Auscultated placement, gurgle auscultated with charge nurse and primary RN. Secured NGT, placed patient head of bed 30 degrees for aspiration precaution. STAT KUB X-ray ordered to confirm placement of NGT. Noted. Will continue to monitor patient.
--- NOTE | 2018-05-26 17:00 | NUR ---
NURSE NOTES: Dr. Membreno ordered Ativan 0.5 mg IV x 1 for CTA chest w/ contrast. Per Dr. Membreno consent is signed by patient witnessed by Dr. Bolton. Consent is in chart. Noted.
--- NOTE | 2018-05-26 18:00 | NUR ---
NURSE NOTES: Dr. Dutta ordered accuchek Q6HR no sliding scale. Noted. Will continue to monitor patient.
[2018-05-26] MEDS ORDERED: LORazepam Inj 2mg/ml 1ml IV SCH (18:22)
[2018-05-26 18:41] LABS: INR 1.1 (0.9-1.1)
--- NOTE | 2018-05-26 18:46 | Diagnostic Imaging Report ---
EXAM: XR Abdomen, 2 Views CLINICAL HISTORY: NGT TECHNIQUE: Frontal view of the abdomen/pelvis with upright view of the abdomen. COMPARISON: No relevant prior studies available. FINDINGS/IMPRESSION: Tip and sidehole of the enteric tube project in the proximal stomach.
--- NOTE | 2018-05-26 19:20 | NUR ---
NURSE NOTES: Received report from Adalberto RN, pt. in bed awake, alert to name and place- able to make needs known, no signs or symptoms of acute cardiac or respiratory distress noted, bed in lowest position and call light within easy reach, bed alarm on, side rails up x's3- safety brakes engaged, pt. appears to be tolerating current venturi mask settings well- sating at 94%- no distress noted, pt. has rt. Nare NGt- no feeding at this time- but pt. is to be on Glucerna 1.2 at 55cc/hr- per endorsement, pt. is to be on BIPAP 12/5 Fio2 at 60%- QHS and PRN, pt. is clean and dry, and appears to be comfortable, Rt. AC 20G iv intact and patent, safety measures continued, will continue with plan of care.
--- NOTE | 2018-05-26 19:30 | NUR ---
HAND-OFF: Report given to RAUL Allan.
[2018-05-26 20:00] VITALS: BP 144/70
[2018-05-26] MEDS: OLANZapine 10mg tab ORAL SCH (20:26)
--- NOTE | 2018-05-26 21:14 | Pulmonology Progress Note ---
Assessment/Plan Assessment/Plan Pulmonary Progress Note Assessment/Plan Problems: (1) COPD exacerbation (2) Hypercapnic respiratory failure, chronic (3) Hypoxia (4) Benzodiazepine dependence (5) Hypercarbia (6) Schizoaffective disorder Assessment/Plan ASSESSMENT: The patient is a 67-year-old female smoker with history of chronic obstructive pulmonary disease, assisted living resident, hypertension, hyperlipidemia, hypothyroidism, presenting after a fall, respiratory distress, likely exacerbation of chronic obstructive pulmonary disease and urinary tract infection. PROBLEM LIST: 1. Acute on chronic hypercapnic respiratory failure. 2. Chronic obstructive pulmonary disease with acute exacerbation. 3. Urinary tract infection ( alpha hemolytic strep) 4. CoNS in blood likely contaminant 5. Leukocytosis secondary to above and steroids 6. Questionable fall. 7. History of psychiatric disorder. 8. Hypertension, hyperlipidemia, hypothyroidism. 9. Mild elevation of D-dimer. TREATMENT PLAN: 1. CXR 2. ABG 3. F/U AML 4. Optimize pulmonary hygiene/mobilize as tolerated. 5. BiPAP 12/5 qHS and PRN 7. Titrate FiO2 to keep saturations greater than 90%. 8. RTC and PRN DuoNeb. 9. Continue SM 60 IV qDaily (D3) 10. Add Mucomyst HHN's and CPT QID 11. Monitor for signs of respiratory infection. 12. Continue cefepime (D4), F/U repeat blood Cx's 13. Duplex neg, D-dim elevated, await CT-A 14. NPO while on BiPAP, once off we will advance diet cautiously with aspiration precautions. 15. Monitor volumes and renal function, continue IV Lasix per Cardiology. 16. DVT prophylaxis with heparin subcutaneous. 17. F/U neuro recs, monitor MS, F/U EEG, F/U ammonia 18. The patient should have outpatient workup including pulmonary function tests Subjective Allergies: Coded Allergies: No Known Allergies (Unverified , 05/22/18) Subjective AFVSS on BiPAP -> VM awake and alert _+ cough no SOB no FC AML pending Objective Vital Signs Noted General Appearance: WD/WN, no acute distress HEENT: normocephalic, atraumatic, anicteric, mucous membranes moist Respiratory/Chest: rhonchi Cardiovascular: normal peripheral pulses, normal rate, regular rhythm Abdomen: normal bowel sounds, soft, non tender, no organomegaly, non distended , no mass Extremities: no cyanosis, no clubbing, no edema Microbiology Date/Time Source Procedure Growth Status 05/22/18 13:00 Blood Blood Culture - Preliminary NO GROWTH AFTER 48 HOURS Resulted 05/22/18 13:00 Blood Blood Culture - Final Staphylococcus Sp Coag Neg Complete 05/22/18 13:00 Nasal Nares Influenza Types A,B Antigen (JALEESA) - Final Complete 05/22/18 13:05 Urine,Clean Catch Urine Culture - Final Aerococcus Urinae Complete 05/23/18 10:00 Rectum VRE Culture - Final NO VANCOMYCIN RESISTANT ENTEROCOCCUS ... Complete 05/22/18 16:07 Rectum - Final NO CARBAPENEM-RESISTANT ENTEROBACTERI... Complete Laboratory Tests 05/24/18 21:15: Ammonia 34H Current Medications Medications (Trade) Dose Ordered Sig/Salty Route PRN Reason Start Time Stop Time Status Last Admin Dose Admin Acetaminophen (Tylenol) 500 mg Q4H PRN ORAL Mild Pain/Temp > 100.5 05/23/18 07:30 06/22/18 07:29 05/24/18 09:44 Albuterol/ Ipratropium (Albuterol/ Ipratropium) 3 ml Q4H PRN HHN Shortness of Breath 05/22/18 19:45 05/27/18 19:44 Albuterol/ Ipratropium (Albuterol/ Ipratropium) 3 ml Q6HRT HHN 05/23/18 01:00 05/28/18 00:59 05/25/18 07:35 Cefepime HCl 1 gm/ Dextrose 55 ml @ 110 mls/hr EVERY 12 HOURS IVPB 05/22/18 21:00 05/29/18 20:59 05/25/18 09:01 Fluoxetine HCl (PROzac) 20 mg DAILY ORAL 05/23/18 11:45 06/22/18 11:44 05/25/18 08:58 Furosemide (Lasix) 40 mg DAILY IV 05/23/18 09:00 06/22/18 08:59 05/25/18 08:57 Heparin Sodium (Porcine) (Heparin 5000 units/ml) 5,000 units EVERY 12 HOURS SUBQ 05/22/18 21:00 06/21/18 20:59 05/25/18 08:59 Iopamidol (Isovue-370 150ml) 150 ml NOW PRN INJ Radiology Procedure 05/23/18 15:00 05/25/18 14:59 Methylprednisolone Sodium Succinate (Solu-MEDROL) 60 mg DAILY IVP 05/24/18 09:00 06/23/18 08:59 05/25/18 08:57 Olanzapine (ZyPREXA) 10 mg BEDTIME ORAL 05/23/18 21:00 06/22/18 20:59 05/24/18 20:39 Subjective ROS Limited/Unobtainable: No Allergies: Coded Allergies: No Known Allergies (Unverified , 05/22/18) Objective Last 24 Hour Vital Signs Date Time Temp Pulse Resp B/P (MAP) Pulse Ox O2 Delivery O2 Flow Rate FiO2 05/26/18 19:24 94 24 94 Venturi Mask 55 05/26/18 19:18 93 20 95 Venturi Mask 14.0 55 05/26/18 19:18 93 20 95 Venturi Mask 14.0 55 05/26/18 19:18 60 05/26/18 19:10 102 20 92 Venturi Mask 14.0 55 05/26/18 16:03 71 05/26/18 16:00 60 05/26/18 16:00 97.3 76 16 133/74 (93) 92 05/26/18 16:00 Bi-pap 05/26/18 15:56 76 18 96 Venturi Mask 4.0 30 05/26/18 15:42 76 22 93 Venturi Mask 4.0 30 05/26/18 14:32 81 23 95 05/26/18 13:42 76 25 95 Bi-pap 60 05/26/18 13:25 60 05/26/18 13:25 68 22 95 Full Face 60 05/26/18 13:25 98 22 95 Bi-pap 60 05/26/18 12:00 97.4 78 22 143/90 (107) 95 05/26/18 12:00 78 05/26/18 12:00 60 05/26/18 12:00 Bi-pap 05/26/18 11:35 78 21 97 Bi-pap 60 05/26/18 11:25 76 22 93 Bi-pap 60 05/26/18 11:25 76 22 93 Facial 60 05/26/18 08:53 63 23 96 Facial 60 05/26/18 08:53 63 23 96 Bi-pap 60 05/26/18 08:53 63 23 96 Bi-pap 60 05/26/18 08:39 66 24 93 Bi-pap 60 05/26/18 08:39 60 05/26/18 08:39 66 24 93 Facial 60 05/26/18 08:39 66 24 93 Bi-pap 60 05/26/18 08:00 72 05/26/18 08:00 97.5 65 26 136/83 (100) 97 05/26/18 08:00 Bi-pap 05/26/18 08:00 60 05/26/18 05:30 69 18 98 Facial 60 05/26/18 04:00 60 05/26/18 04:00 97.6 73 18 136/83 (100) 96 05/26/18 04:00 Bi-pap 05/26/18 03:56 69 05/26/18 03:25 65 23 97 Bi-pap 60 05/26/18 03:16 69 19 97 Facial 60 05/26/18 03:14 62 23 97 Bi-pap 60 05/26/18 01:37 71 19 97 Facial 60 05/26/18 00:00 60 05/26/18 00:00 Bi-pap 05/26/18 00:00 98.3 74 21 136/79 (98) 95 05/26/18 00:00 81 05/25/18 23:44 79 20 96 Bi-pap 60 05/25/18 23:36 72 19 91 Bi-pap 60 05/25/18 23:01 74 19 94 Facial 60 05/25/18 21:40 79 20 92 Facial 60 Intake and Output 05/25/18 05/26/18 19:00 07:00 Intake Total 110 ml 55 ml Output Total 150 ml Balance 110 ml -95 ml Intake IV Total 110 ml 55 ml Output Urine Total 150 ml # Voids 3 3 # Bowel Movements 2 Laboratory Tests 05/26/18 06:00: Urine Opiates Screen Negative, Urine Barbiturates Screen Negative, Phencyclidine (PCP) Screen Negative, Urine Amphetamines Screen Negative, Urine Benzodiazepines Screen Negative, Urine Cocaine Screen Negative, Urine Marijuana (THC) Screen Negative 05/26/18 18:00: Prothrombin Time 11.4, Prothromb Time International Ratio 1.1 Current Medications Medications (Trade) Dose Ordered Sig/Salty Route PRN Reason Start Time Stop Time Status Last Admin Dose Admin Acetaminophen (Tylenol) 500 mg Q4H PRN ORAL Mild Pain/Temp > 100.5 05/23/18 07:30 06/22/18 07:29 05/24/18 09:44 Acetylcysteine (Mucomyst) 100 mg TIDRT N 05/25/18 13:00 06/24/18 12:59 05/26/18 19:08 Albuterol/ Ipratropium (Albuterol/ Ipratropium) 3 ml Q4H PRN N Shortness of Breath 05/22/18 19:45 05/27/18 19:44 05/26/18 13:25 Albuterol/ Ipratropium (Albuterol/ Ipratropium) 3 ml Q6HRT N 05/26/18 19:00 05/28/18 00:59 05/26/18 19:08 Cefepime HCl 1 gm/ Dextrose 55 ml @ 110 mls/hr EVERY 12 HOURS IVPB 05/22/18 21:00 05/29/18 20:59 05/26/18 20:26 Fluoxetine HCl (PROzac) 20 mg DAILY ORAL 05/23/18 11:45 06/22/18 11:44 05/26/18 08:49 Furosemide (Lasix) 40 mg DAILY IV 05/23/18 09:00 06/22/18 08:59 05/26/18 08:49 Heparin Sodium (Porcine) (Heparin 5000 units/ml) 5,000 units EVERY 12 HOURS SUBQ 05/22/18 21:00 06/21/18 20:59 05/26/18 20:28 Methylprednisolone Sodium Succinate (Solu-MEDROL) 60 mg DAILY IVP 05/24/18 09:00 06/23/18 08:59 05/26/18 08:49 Olanzapine (ZyPREXA) 10 mg BEDTIME ORAL 05/23/18 21:00 06/22/18 20:59 05/26/18 20:26 Mele Mccullough MD May 26, 2018 21:14
--- NOTE | 2018-05-26 23:13 | General Progress Note ---
Assessment/Plan Problem List: (1) Hypoxia ICD Codes: R09.02 - Hypoxemia SNOMED: 598054709 (2) COPD exacerbation ICD Codes: J44.1 - Chronic obstructive pulmonary disease with (acute) exacerbation SNOMED: 184025726 (3) Hypercapnic respiratory failure, chronic ICD Codes: J96.12 - Chronic respiratory failure with hypercapnia SNOMED: 630440363 (4) Hypoxemia ICD Codes: R09.02 - Hypoxemia SNOMED: 904377324 (5) Benzodiazepine dependence ICD Codes: F13.20 - Sedative, hypnotic or anxiolytic dependence, uncomplicated SNOMED: 520448579 (6) Hypoalbuminemia ICD Codes: E88.09 - Other disorders of plasma-protein metabolism, not elsewhere classified SNOMED: 672029539 Status: progressing Assessment/Plan diet per pulmonary more alert off bipap on oxygen copd exacerbation not hypoxic s r/o pna psych patient Subjective Allergies: Coded Allergies: No Known Allergies (Unverified , 05/22/18) Objective Last 24 Hour Vital Signs Date Time Temp Pulse Resp B/P (MAP) Pulse Ox O2 Delivery O2 Flow Rate FiO2 05/26/18 22:30 93 24 93 60 05/26/18 20:00 60 05/26/18 20:00 100 05/26/18 20:00 Bi-pap 05/26/18 20:00 97.9 99 22 144/70 (94) 94 05/26/18 19:24 94 24 94 Venturi Mask 55 05/26/18 19:18 93 20 95 Venturi Mask 14.0 55 05/26/18 19:18 93 20 95 Venturi Mask 14.0 55 05/26/18 19:18 60 05/26/18 19:10 102 20 92 Venturi Mask 14.0 55 05/26/18 16:03 71 05/26/18 16:00 60 05/26/18 16:00 97.3 76 16 133/74 (93) 92 05/26/18 16:00 Bi-pap 05/26/18 15:56 76 18 96 Venturi Mask 4.0 30 05/26/18 15:42 76 22 93 Venturi Mask 4.0 30 05/26/18 14:32 81 23 95 05/26/18 13:42 76 25 95 Bi-pap 60 05/26/18 13:25 60 2/8/19 13:25 68 22 95 Full Face 60 05/26/18 13:25 98 22 95 Bi-pap 60 05/26/18 12:00 97.4 78 22 143/90 (107) 95 05/26/18 12:00 78 05/26/18 12:00 60 05/26/18 12:00 Bi-pap 05/26/18 11:35 78 21 97 Bi-pap 60 05/26/18 11:25 76 22 93 Bi-pap 60 05/26/18 11:25 76 22 93 Facial 60 05/26/18 08:53 63 23 96 Facial 60 05/26/18 08:53 63 23 96 Bi-pap 60 05/26/18 08:53 63 23 96 Bi-pap 60 05/26/18 08:39 66 24 93 Bi-pap 60 05/26/18 08:39 60 05/26/18 08:39 66 24 93 Facial 60 05/26/18 08:39 66 24 93 Bi-pap 60 05/26/18 08:00 72 05/26/18 08:00 97.5 65 26 136/83 (100) 97 05/26/18 08:00 Bi-pap 05/26/18 08:00 60 05/26/18 05:30 69 18 98 Facial 60 05/26/18 04:00 60 05/26/18 04:00 97.6 73 18 136/83 (100) 96 05/26/18 04:00 Bi-pap 05/26/18 03:56 69 05/26/18 03:25 65 23 97 Bi-pap 60 05/26/18 03:16 69 19 97 Facial 60 05/26/18 03:14 62 23 97 Bi-pap 60 05/26/18 01:37 71 19 97 Facial 60 05/26/18 00:00 60 05/26/18 00:00 Bi-pap 05/26/18 00:00 98.3 74 21 136/79 (98) 95 05/26/18 00:00 81 05/25/18 23:44 79 20 96 Bi-pap 60 05/25/18 23:36 72 19 91 Bi-pap 60 Intake and Output 05/25/18 05/26/18 19:00 07:00 Intake Total 110 ml 55 ml Output Total 150 ml Balance 110 ml -95 ml Intake IV Total 110 ml 55 ml Output Urine Total 150 ml # Voids 3 3 # Bowel Movements 2 Laboratory Tests 05/26/18 06:00: Urine Opiates Screen Negative, Urine Barbiturates Screen Negative, Phencyclidine (PCP) Screen Negative, Urine Amphetamines Screen Negative, Urine Benzodiazepines Screen Negative, Urine Cocaine Screen Negative, Urine Marijuana (THC) Screen Negative 05/26/18 18:00: Prothrombin Time 11.4, Prothromb Time International Ratio 1.1 Height (Feet): 5 Height (Inches): 5.00 Weight (Pounds): 179 Cardiovascular: normal rate Respiratory/Chest: lungs clear Margot Dutta MD May 26, 2018 23:12
[2018-05-27] VITALS: BP 121/59
--- NOTE | 2018-05-27 00:22 | NUR ---
NURSE NOTES: DR. Membreno, notified of CTA results-Read findings to doctor- no new orders given.
[2018-05-27] MEDS: Albuterol/Ipratropium 3ml neb HHN SCH ×4 (01:06→19:21)
[2018-05-27 04:00] VITALS: BP 148/81
[2018-05-27 05:20] LABS: HEMOGLOBIN 17.6 G/DL (12.0-16.0); MEAN CORPUSCULAR VOLUME 95 FL (80-99); PLATELET COUNT 379 K/UL (150-450); RED CELL DISTRIBUTION WIDTH 11.5 % (11.6-14.8)
[2018-05-27 05:33] LABS: WHITE BLOOD COUNT 22.1 K/UL (4.8-10.8)
--- NOTE | 2018-05-27 07:30 | NUR ---
NURSE NOTES: Received report from Cipriano Cox RN. Patient is asleep in bed with no s/s of acute distress noted. Sinus rhythm on bull chain operator. Receiving 15L O2 via venturi mask and saturating well. Receiving Glucerna 1.2 @ 10 cc/hr and tolerating well, goal of 55 cc/hr. Purewick catheter in place and suctioning well. Right AC 20g IV saline lock, patent and intact. Bed locked in lowest position with side rails up x2. Call light left within reach. Will continue to monitor.
--- NOTE | 2018-05-27 07:30 | NUR ---
HAND-OFF: Report given to Merlyn Rn, Pt. remains stable and no signs of distress noted- nurse aware to f/u on WBC's trending up.
[2018-05-27 08:00] VITALS: BP 141/85
--- NOTE | 2018-05-27 08:10 | NUR ---
NURSE NOTES: Left message for Dr. Oleksandr Cohen MD regarding patient's WBC's trending up to 22.1. Awaiting response. Will continue to monitor.
--- NOTE | 2018-05-27 09:16 | Pulmonology Progress Note ---
Assessment/Plan Assessment/Plan Pulmonary Progress Note Assessment/Plan Problems: (1) COPD exacerbation (2) Hypercapnic respiratory failure, chronic (3) Hypoxia (4) Benzodiazepine dependence (5) Hypercarbia (6) Schizoaffective disorder Assessment/Plan ASSESSMENT: The patient is a 67-year-old female smoker with history of chronic obstructive pulmonary disease, assisted living resident, hypertension, hyperlipidemia, hypothyroidism, presenting after a fall, respiratory distress, likely exacerbation of chronic obstructive pulmonary disease and urinary tract infection. PROBLEM LIST: 1. Acute on chronic hypercapnic respiratory failure. 2. Chronic obstructive pulmonary disease with acute exacerbation. 3. Urinary tract infection ( alpha hemolytic strep) 4. CoNS in blood likely contaminant 5. Leukocytosis secondary to above and steroids 6. Questionable fall. 7. History of psychiatric disorder. 8. Hypertension, hyperlipidemia, hypothyroidism. 9. Mild elevation of D-dimer. TREATMENT PLAN: 1. CXR 2. ABG 3. F/U AML 4. Optimize pulmonary hygiene/mobilize as tolerated. 5. BiPAP 12/5 qHS and PRN 7. Titrate FiO2 to keep saturations greater than 90%. 8. RTC and PRN DuoNeb. 9. Continue SM 60 IV qDaily (D3) 10. Add Mucomyst HHN's and CPT QID 11. Monitor for signs of respiratory infection. 12. Continue cefepime (D4), F/U repeat blood Cx's 13. Duplex neg, D-dim elevated, await CT-A 14. NPO while on BiPAP, once off we will advance diet cautiously with aspiration precautions. 15. Monitor volumes and renal function, continue IV Lasix per Cardiology. 16. DVT prophylaxis with heparin subcutaneous. 17. F/U neuro recs, monitor MS, F/U EEG, F/U ammonia 18. The patient should have outpatient workup including pulmonary function tests Subjective Allergies: Coded Allergies: No Known Allergies (Unverified , 05/22/18) Subjective AFVSS on BiPAP -> VM awake and alert _+ cough no SOB no FC AML pending Objective Vital Signs Noted General Appearance: WD/WN, no acute distress HEENT: normocephalic, atraumatic, anicteric, mucous membranes moist Respiratory/Chest: rhonchi Cardiovascular: normal peripheral pulses, normal rate, regular rhythm Abdomen: normal bowel sounds, soft, non tender, no organomegaly, non distended , no mass Extremities: no cyanosis, no clubbing, no edema Microbiology Date/Time Source Procedure Growth Status 05/22/18 13:00 Blood Blood Culture - Preliminary NO GROWTH AFTER 48 HOURS Resulted 05/22/18 13:00 Blood Blood Culture - Final Staphylococcus Sp Coag Neg Complete 05/22/18 13:00 Nasal Nares Influenza Types A,B Antigen (JALEESA) - Final Complete 05/22/18 13:05 Urine,Clean Catch Urine Culture - Final Aerococcus Urinae Complete 05/23/18 10:00 Rectum VRE Culture - Final NO VANCOMYCIN RESISTANT ENTEROCOCCUS ... Complete 05/22/18 16:07 Rectum - Final NO CARBAPENEM-RESISTANT ENTEROBACTERI... Complete Laboratory Tests 05/24/18 21:15: Ammonia 34H Current Medications Medications (Trade) Dose Ordered Sig/Salty Route PRN Reason Start Time Stop Time Status Last Admin Dose Admin Acetaminophen (Tylenol) 500 mg Q4H PRN ORAL Mild Pain/Temp > 100.5 05/23/18 07:30 06/22/18 07:29 05/24/18 09:44 Albuterol/ Ipratropium (Albuterol/ Ipratropium) 3 ml Q4H PRN HHN Shortness of Breath 05/22/18 19:45 05/27/18 19:44 Albuterol/ Ipratropium (Albuterol/ Ipratropium) 3 ml Q6HRT HHN 05/23/18 01:00 05/28/18 00:59 05/25/18 07:35 Cefepime HCl 1 gm/ Dextrose 55 ml @ 110 mls/hr EVERY 12 HOURS IVPB 05/22/18 21:00 05/29/18 20:59 05/25/18 09:01 Fluoxetine HCl (PROzac) 20 mg DAILY ORAL 05/23/18 11:45 06/22/18 11:44 05/25/18 08:58 Furosemide (Lasix) 40 mg DAILY IV 05/23/18 09:00 06/22/18 08:59 05/25/18 08:57 Heparin Sodium (Porcine) (Heparin 5000 units/ml) 5,000 units EVERY 12 HOURS SUBQ 05/22/18 21:00 06/21/18 20:59 05/25/18 08:59 Iopamidol (Isovue-370 150ml) 150 ml NOW PRN INJ Radiology Procedure 05/23/18 15:00 05/25/18 14:59 Methylprednisolone Sodium Succinate (Solu-MEDROL) 60 mg DAILY IVP 05/24/18 09:00 06/23/18 08:59 05/25/18 08:57 Olanzapine (ZyPREXA) 10 mg BEDTIME ORAL 05/23/18 21:00 06/22/18 20:59 05/24/18 20:39 Subjective ROS Limited/Unobtainable: No Allergies: Coded Allergies: No Known Allergies (Unverified , 05/22/18) Objective Last 24 Hour Vital Signs Date Time Temp Pulse Resp B/P (MAP) Pulse Ox O2 Delivery O2 Flow Rate FiO2 05/27/18 08:00 97.9 102 19 141/85 (103) 93 05/27/18 07:28 77 21 95 Venturi Mask 14.0 55 05/27/18 07:20 85 22 94 Venturi Mask 14.0 55 05/27/18 04:50 15.0 55 05/27/18 04:00 85 05/27/18 04:00 60 05/27/18 04:00 Bi-pap 05/27/18 04:00 98.7 83 22 148/81 (103) 97 05/27/18 03:14 84 17 93 Facial 60 05/27/18 01:15 88 22 94 Bi-pap 60 05/27/18 01:05 77 19 92 Bi-pap 60 05/27/18 01:04 77 19 92 Facial 60 05/27/18 00:00 81 05/27/18 00:00 98.1 91 14 121/59 (79) 96 05/27/18 00:00 Bi-pap 05/27/18 00:00 60 05/26/18 22:30 93 24 93 60 05/26/18 22:00 60 05/26/18 20:00 15.0 05/26/18 20:00 100 05/26/18 20:00 Bi-pap 05/26/18 20:00 97.9 99 22 144/70 (94) 94 05/26/18 19:24 94 24 94 Venturi Mask 55 05/26/18 19:18 93 20 95 Venturi Mask 14.0 55 05/26/18 19:18 93 20 95 Venturi Mask 14.0 55 05/26/18 19:18 60 05/26/18 19:10 102 20 92 Venturi Mask 14.0 55 05/26/18 16:03 71 05/26/18 16:00 60 05/26/18 16:00 97.3 76 16 133/74 (93) 92 05/26/18 16:00 Bi-pap 05/26/18 15:56 76 18 96 Venturi Mask 4.0 30 05/26/18 15:42 76 22 93 Venturi Mask 4.0 30 05/26/18 14:32 81 23 95 05/26/18 13:42 76 25 95 Bi-pap 60 05/26/18 13:25 60 05/26/18 13:25 68 22 95 Full Face 60 05/26/18 13:25 98 22 95 Bi-pap 60 05/26/18 12:00 97.4 78 22 143/90 (107) 95 05/26/18 12:00 78 05/26/18 12:00 60 05/26/18 12:00 Bi-pap 05/26/18 11:35 78 21 97 Bi-pap 60 05/26/18 11:25 76 22 93 Bi-pap 60 05/26/18 11:25 76 22 93 Facial 60 Intake and Output 05/26/18 05/27/18 19:00 07:00 Intake Total 120 ml Output Total 550 ml Balance -430 ml Intake IV Total 110 ml Tube Feeding 10 ml Output Urine Total 550 ml # Voids 2 Laboratory Tests 05/26/18 18:00: Prothrombin Time 11.4, Prothromb Time International Ratio 1.1 05/27/18 04:10: White Blood Count 22.1*H, Red Blood Count 5.70H, Hemoglobin 17.6H, Hematocrit 54.0H, Mean Corpuscular Volume 95, Mean Corpuscular Hemoglobin 30.9, Mean Corpuscular Hemoglobin Concent 32.6, Red Cell Distribution Width 11.5L, Platelet Count 379, Mean Platelet Volume 5.6L, Neutrophils (%) (Auto) , Lymphocytes (%) (Auto) , Monocytes (%) (Auto) , Eosinophils (%) (Auto) , Basophils (%) (Auto) , Neutrophils % (Manual) [Pending], Lymphocytes % (Manual) [Pending], Platelet Estimate [Pending], Platelet Morphology [Pending] Current Medications Medications (Trade) Dose Ordered Sig/Salty Route PRN Reason Start Time Stop Time Status Last Admin Dose Admin Acetaminophen (Tylenol) 500 mg Q4H PRN ORAL Mild Pain/Temp > 100.5 05/23/18 07:30 06/22/18 07:29 05/24/18 09:44 Acetylcysteine (Mucomyst) 100 mg TIDRT HHN 05/25/18 13:00 06/24/18 12:59 05/27/18 07:50 Albuterol/ Ipratropium (Albuterol/ Ipratropium) 3 ml Q4H PRN HHN Shortness of Breath 05/22/18 19:45 05/27/18 19:44 05/26/18 13:25 Albuterol/ Ipratropium (Albuterol/ Ipratropium) 3 ml Q6HRT HHN 05/26/18 19:00 05/28/18 00:59 05/27/18 07:50 Cefepime HCl 1 gm/ Dextrose 55 ml @ 110 mls/hr EVERY 12 HOURS IVPB 05/22/18 21:00 05/29/18 20:59 05/26/18 20:26 Fluoxetine HCl (PROzac) 20 mg DAILY ORAL 05/23/18 11:45 06/22/18 11:44 05/26/18 08:49 Furosemide (Lasix) 40 mg DAILY IV 05/23/18 09:00 06/22/18 08:59 05/26/18 08:49 Heparin Sodium (Porcine) (Heparin 5000 units/ml) 5,000 units EVERY 12 HOURS SUBQ 05/22/18 21:00 06/21/18 20:59 05/26/18 20:28 Methylprednisolone Sodium Succinate (Solu-MEDROL) 60 mg DAILY IVP 05/24/18 09:00 06/23/18 08:59 05/26/18 08:49 Olanzapine (ZyPREXA) 10 mg BEDTIME ORAL 05/23/18 21:00 06/22/18 20:59 05/26/18 20:26 Mele Mccullough MD May 27, 2018 09:16
[2018-05-27] MEDS: Solu-MEDROL 125mg Inj IVP SCH (09:39)
[2018-05-27] MEDS: Cefepime HCl 1 GM in D5W 55 ML IVPB SCH ×2 (09:40→20:59)
[2018-05-27] MEDS: Heparin 5000 units/ml inj SUBQ SCH ×2 (09:57→21:00)
--- NOTE | 2018-05-27 10:49 | Infectious Diseases Prog Note ---
Assessment/Plan Assessment/Plan antibiotics : cefepime A 1. aerococcus UTI 2. COPD exacerbation 3. schizophrenia 4. hypertension 5. leucocytosis 6. + blood cultures with coag neg staph likely contaminated P 1. continue cefepime 2. will follow up cultures Subjective ROS Limited/Unobtainable: Yes Allergies: Coded Allergies: No Known Allergies (Unverified , 05/22/18) Objective Vital Signs Last 24 Hour Vital Signs Date Time Temp Pulse Resp B/P (MAP) Pulse Ox O2 Delivery O2 Flow Rate FiO2 05/27/18 09:45 107 05/27/18 08:00 97.9 102 19 141/85 (103) 93 05/27/18 07:28 77 21 95 Venturi Mask 14.0 55 05/27/18 07:20 85 22 94 Venturi Mask 14.0 55 05/27/18 04:50 15.0 55 05/27/18 04:00 85 05/27/18 04:00 60 05/27/18 04:00 Bi-pap 05/27/18 04:00 98.7 83 22 148/81 (103) 97 05/27/18 03:14 84 17 93 Facial 60 05/27/18 01:15 88 22 94 Bi-pap 60 05/27/18 01:05 77 19 92 Bi-pap 60 05/27/18 01:04 77 19 92 Facial 60 05/27/18 00:00 81 05/27/18 00:00 98.1 91 14 121/59 (79) 96 05/27/18 00:00 Bi-pap 05/27/18 00:00 60 05/26/18 22:30 93 24 93 60 05/26/18 22:00 60 05/26/18 20:00 15.0 05/26/18 20:00 100 05/26/18 20:00 Bi-pap 05/26/18 20:00 97.9 99 22 144/70 (94) 94 05/26/18 19:24 94 24 94 Venturi Mask 55 05/26/18 19:18 93 20 95 Venturi Mask 14.0 55 05/26/18 19:18 93 20 95 Venturi Mask 14.0 55 05/26/18 19:18 60 05/26/18 19:10 102 20 92 Venturi Mask 14.0 55 05/26/18 16:03 71 05/26/18 16:00 60 05/26/18 16:00 97.3 76 16 133/74 (93) 92 05/26/18 16:00 Bi-pap 05/26/18 15:56 76 18 96 Venturi Mask 4.0 30 05/26/18 15:42 76 22 93 Venturi Mask 4.0 30 05/26/18 14:32 81 23 95 05/26/18 13:42 76 25 95 Bi-pap 60 05/26/18 13:25 60 05/26/18 13:25 68 22 95 Full Face 60 05/26/18 13:25 98 22 95 Bi-pap 60 05/26/18 12:00 97.4 78 22 143/90 (107) 95 05/26/18 12:00 78 05/26/18 12:00 60 05/26/18 12:00 Bi-pap 05/26/18 11:35 78 21 97 Bi-pap 60 05/26/18 11:25 76 22 93 Bi-pap 60 05/26/18 11:25 76 22 93 Facial 60 Height (Feet): 5 Height (Inches): 5.00 Weight (Pounds): 179 Respiratory/Chest: lungs clear Cardiovascular: normal rate, regular rhythm, no gallop/murmur Abdomen: soft, non tender Extremities: other - + edema Laboratory Tests Test 05/26/18 18:00 05/27/18 04:10 Prothrombin Time 11.4 SEC (9.30-11.50) Prothromb Time International Ratio 1.1 (0.9-1.1) White Blood Count 22.1 K/UL (4.8-10.8) *H Red Blood Count 5.70 M/UL (4.20-5.40) H Hemoglobin 17.6 G/DL (12.0-16.0) H Hematocrit 54.0 % (37.0-47.0) H Mean Corpuscular Volume 95 FL (80-99) Mean Corpuscular Hemoglobin 30.9 PG (27.0-31.0) Mean Corpuscular Hemoglobin Concent 32.6 G/DL (32.0-36.0) Red Cell Distribution Width 11.5 % (11.6-14.8) L Platelet Count 379 K/UL (150-450) Mean Platelet Volume 5.6 FL (6.5-10.1) L Neutrophils (%) (Auto) % (45.0-75.0) Lymphocytes (%) (Auto) % (20.0-45.0) Monocytes (%) (Auto) % (1.0-10.0) Eosinophils (%) (Auto) % (0.0-3.0) Basophils (%) (Auto) % (0.0-2.0) Differential Total Cells Counted 100 Neutrophils % (Manual) 68 % (45-75) Lymphocytes % (Manual) 11 % (20-45) L Monocytes % (Manual) 7 % (1-10) Eosinophils % (Manual) 0 % (0-3) Basophils % (Manual) 0 % (0-2) Metamyelocytes % 1 % (0-0) H Myelocytes % 2 % (0-0) H Band Neutrophils 11 % (0-8) H Platelet Estimate Adequate Platelet Morphology Normal Red Blood Cell Morphology Normal Current Medications Medications (Trade) Dose Ordered Sig/Salty Route PRN Reason Start Time Stop Time Status Last Admin Dose Admin Acetaminophen (Tylenol) 500 mg Q4H PRN ORAL Mild Pain/Temp > 100.5 05/23/18 07:30 06/22/18 07:29 05/24/18 09:44 Acetylcysteine (Mucomyst) 100 mg TIDRT N 05/25/18 13:00 06/24/18 12:59 05/27/18 07:50 Albuterol/ Ipratropium (Albuterol/ Ipratropium) 3 ml Q4H PRN N Shortness of Breath 05/22/18 19:45 05/27/18 19:44 05/26/18 13:25 Albuterol/ Ipratropium (Albuterol/ Ipratropium) 3 ml Q6HRT N 05/26/18 19:00 05/28/18 00:59 05/27/18 07:50 Cefepime HCl 1 gm/ Dextrose 55 ml @ 110 mls/hr EVERY 12 HOURS IVPB 05/22/18 21:00 05/29/18 20:59 05/27/18 09:40 Fluoxetine HCl (PROzac) 20 mg DAILY ORAL 05/23/18 11:45 06/22/18 11:44 05/27/18 09:39 Furosemide (Lasix) 40 mg DAILY IV 05/23/18 09:00 06/22/18 08:59 05/27/18 09:39 Heparin Sodium (Porcine) (Heparin 5000 units/ml) 5,000 units EVERY 12 HOURS SUBQ 05/22/18 21:00 06/21/18 20:59 05/27/18 09:57 Methylprednisolone Sodium Succinate (Solu-MEDROL) 60 mg DAILY IVP 05/24/18 09:00 06/23/18 08:59 05/27/18 09:39 Olanzapine (ZyPREXA) 10 mg BEDTIME ORAL 05/23/18 21:00 06/22/18 20:59 05/26/18 20:26 Annia Murphy MD May 27, 2018 10:49
--- NOTE | 2018-05-27 11:14 | Diagnostic Imaging Report ---
EXAM: XR Chest, 1 View CLINICAL HISTORY: COPD TECHNIQUE: Frontal view of the chest. COMPARISON: CT chest, 05/26/18 FINDINGS: Lungs: Elevated right hemidiaphragm. Bibasilar lung atelectasis. Pleural space: Unremarkable. No pneumothorax. Heart: Unremarkable. No cardiomegaly. Mediastinum: Unremarkable. Bones/joints: Unremarkable. Tubes, lines and devices: NG tube traverses the diaphragm. IMPRESSION: Elevated right hemidiaphragm. Bibasilar lung atelectasis.
--- NOTE | 2018-05-27 11:42 | Nephrology Progress Note ---
Assessment/Plan Problem List: (1) Proteinuria (2) Hypoalbuminemia (3) COPD exacerbation (4) Schizoaffective disorder Assessment admitted with exacerbation COPD and Hypoxia High WBCs : UTI , Pneumonia Proteinuria and HypoAlbuminemia Plan BIPAP Antibiotics 24 h urine proteins CAN NOT BE COLLECTED UNLESS FOLEY_ WILL DEFER 2D echo Left ventricular ejection fraction grossly estimated to be 65 %. optimize cardiac status Subjective ROS Limited/Unobtainable: No Constitutional: Reports: malaise, weakness Objective Objective Last 24 Hour Vital Signs Date Time Temp Pulse Resp B/P (MAP) Pulse Ox O2 Delivery O2 Flow Rate FiO2 05/27/18 09:45 107 05/27/18 08:00 Bi-pap 05/27/18 08:00 97.9 102 19 141/85 (103) 93 05/27/18 07:28 77 21 95 Venturi Mask 14.0 55 05/27/18 07:20 85 22 94 Venturi Mask 14.0 55 05/27/18 04:50 15.0 55 05/27/18 04:00 85 05/27/18 04:00 60 05/27/18 04:00 Bi-pap 05/27/18 04:00 98.7 83 22 148/81 (103) 97 05/27/18 03:14 84 17 93 Facial 60 05/27/18 01:15 88 22 94 Bi-pap 60 05/27/18 01:05 77 19 92 Bi-pap 60 05/27/18 01:04 77 19 92 Facial 60 05/27/18 00:00 81 05/27/18 00:00 98.1 91 14 121/59 (79) 96 05/27/18 00:00 Bi-pap 05/27/18 00:00 60 05/26/18 22:30 93 24 93 60 05/26/18 22:00 60 05/26/18 20:00 15.0 05/26/18 20:00 100 05/26/18 20:00 Bi-pap 05/26/18 20:00 97.9 99 22 144/70 (94) 94 05/26/18 19:24 94 24 94 Venturi Mask 55 05/26/18 19:18 93 20 95 Venturi Mask 14.0 55 05/26/18 19:18 93 20 95 Venturi Mask 14.0 55 05/26/18 19:18 60 05/26/18 19:10 102 20 92 Venturi Mask 14.0 55 05/26/18 16:03 71 05/26/18 16:00 60 05/26/18 16:00 97.3 76 16 133/74 (93) 92 05/26/18 16:00 Bi-pap 05/26/18 15:56 76 18 96 Venturi Mask 4.0 30 05/26/18 15:42 76 22 93 Venturi Mask 4.0 30 05/26/18 14:32 81 23 95 05/26/18 13:42 76 25 95 Bi-pap 60 05/26/18 13:25 60 05/26/18 13:25 68 22 95 Full Face 60 05/26/18 13:25 98 22 95 Bi-pap 60 05/26/18 12:00 97.4 78 22 143/90 (107) 95 05/26/18 12:00 78 05/26/18 12:00 60 05/26/18 12:00 Bi-pap Intake and Output 05/26/18 05/27/18 19:00 07:00 Intake Total 120 ml Output Total 550 ml Balance -430 ml Intake IV Total 110 ml Tube Feeding 10 ml Output Urine Total 550 ml # Voids 2 Laboratory Tests 05/26/18 18:00: Prothrombin Time 11.4, Prothromb Time International Ratio 1.1 05/27/18 04:10: White Blood Count 22.1*H, Red Blood Count 5.70H, Hemoglobin 17.6H, Hematocrit 54.0H, Mean Corpuscular Volume 95, Mean Corpuscular Hemoglobin 30.9, Mean Corpuscular Hemoglobin Concent 32.6, Red Cell Distribution Width 11.5L, Platelet Count 379, Mean Platelet Volume 5.6L, Neutrophils (%) (Auto) , Lymphocytes (%) (Auto) , Monocytes (%) (Auto) , Eosinophils (%) (Auto) , Basophils (%) (Auto) , Differential Total Cells Counted 100, Neutrophils % ( Manual) 68, Lymphocytes % (Manual) 11L, Monocytes % (Manual) 7, Eosinophils % ( Manual) 0, Basophils % (Manual) 0, Metamyelocytes % 1H, Myelocytes % 2H, Band Neutrophils 11H, Platelet Estimate Adequate, Platelet Morphology Normal, Red Blood Cell Morphology Normal Height (Feet): 5 Height (Inches): 5.00 Weight (Pounds): 179 EENT: other - BIPAP Cardiovascular: tachycardia Respiratory/Chest: decreased breath sounds Objective no change Seamus Morfin MD May 27, 2018 11:42
--- NOTE | 2018-05-27 11:46 | NUR ---
CASE MANAGEMENT: REVIEW SI: HYPOXIA . COPD EXACERBATION . HYPERCAPNIC RESPIRATORY FAILURE, CHRONIC T 97.9 HR 107 RR 22 BP 148/81 SAT 93% BIPAP FIO2 60 WBC 22.1 H/H 17.6/54.0 BUN 33 ALK PHOS 131 IS: ALBUTEROL HHN Q6HR MUCOMYST HHN TID SOLU MEDROL IV QD LASIX IV QD CEFEPIME IV Q12 NGT FEEDING GLUCERNA 1.2 @55ML/HR STEP DOWN UNIT STATUS DCP: PATIENT IS FROM [facility]
[2018-05-27 12:00] VITALS: BP 137/88
--- NOTE | 2018-05-27 13:10 | NUR ---
NURSE NOTES: Informed Dr. Katherine MD of patient's WBC trending up 22.1. No fever, patient is on steroids. Also informed of chest x-ray taken today. No new orders at this time. Patient remains without s/s of acute distress. Will continue to monitor.
--- NOTE | 2018-05-27 14:08 | Neurology Progress Note ---
Interim History Interim History Interim History Ms. Whitfield feels a little better. She feels that her mind is clearer. She feels stronger generally. She is off BiPAP now. She is delusional today - says she is "." She denies any new neurologic symptoms. She is still forgetful. Her level of cooperation is variable. Review of Systems Neuro Review of Systems Benign. Objective Physical Exam Last Vital Signs Date Time Temp Pulse Resp B/P (MAP) Pulse Ox O2 Delivery O2 Flow Rate FiO2 05/27/18 13:28 82 24 93 Venturi Mask 14.0 55 05/27/18 12:00 97.7 137/88 (104) Laboratory Tests Test 05/26/18 18:00 05/27/18 04:10 Prothrombin Time 11.4 SEC (9.30-11.50) Prothromb Time International Ratio 1.1 (0.9-1.1) White Blood Count 22.1 K/UL (4.8-10.8) *H Red Blood Count 5.70 M/UL (4.20-5.40) H Hemoglobin 17.6 G/DL (12.0-16.0) H Hematocrit 54.0 % (37.0-47.0) H Mean Corpuscular Volume 95 FL (80-99) Mean Corpuscular Hemoglobin 30.9 PG (27.0-31.0) Mean Corpuscular Hemoglobin Concent 32.6 G/DL (32.0-36.0) Red Cell Distribution Width 11.5 % (11.6-14.8) L Platelet Count 379 K/UL (150-450) Mean Platelet Volume 5.6 FL (6.5-10.1) L Neutrophils (%) (Auto) % (45.0-75.0) Lymphocytes (%) (Auto) % (20.0-45.0) Monocytes (%) (Auto) % (1.0-10.0) Eosinophils (%) (Auto) % (0.0-3.0) Basophils (%) (Auto) % (0.0-2.0) Differential Total Cells Counted 100 Neutrophils % (Manual) 68 % (45-75) Lymphocytes % (Manual) 11 % (20-45) L Monocytes % (Manual) 7 % (1-10) Eosinophils % (Manual) 0 % (0-3) Basophils % (Manual) 0 % (0-2) Metamyelocytes % 1 % (0-0) H Myelocytes % 2 % (0-0) H Band Neutrophils 11 % (0-8) H Platelet Estimate Adequate Platelet Morphology Normal Red Blood Cell Morphology Normal Neurologic Exam Objective PHYSICAL EXAMINATION: GENERAL: She is a well-developed, well-nourished, pleasant lady, lying in bed. HEAD: Normocephalic and atraumatic. EENT: Examination benign NECK: No neck rigidity was observed. NEUROLOGICAL EXAMINATION: MENTAL STATUS EXAMINATION: She was awake and alert. She was oriented to self and February only. She was able to recall 3/3 words immediately but could only remember 1/3 after 1 minute and after 3 minutes. She was able to remember president Theodora only Her mathematical skills were impaired. Her visuospatial function was also impaired. She was delusional - telling me she was . SPEECH: She had a mild dysarthria. LANGUAGE: She had a mild anomia for low-frequency words. CRANIAL NERVE EXAMINATION: II: The visual beltran were intact on confrontation testing. III, IV & : The external ocular movements were full and the pupils 3 mm in diameter, equal, round, regular, and reactive to light. V: She had normal facial sensations, and the temporales, masseters, and pterygoids functioned normally. VII: She had normal facial expressions and no facial asymmetry. VIII: She was able to hear well bilaterally and had no nystagmus. IX: The palate moved symmetrically on phonation. X: She had no hoarseness of voice. XI: The sternocleidomastoids and trapezii functioned normally. XII: The tongue was in the midline without any fasciculations or atrophy. MOTOR SYSTEM: The tone was normal in all four extremities. Examination of muscle mass revealed no focal wasting. Examination of power revealed G 5/5 power in the upper extremities. She did not move her lower extremities. SENSORY EXAMINATION: She had intact sensations to deep pain and did not cooperate for further sensory testing. COORDINATION: She performed well on [id number] testing. She was unable to perform onji-ko-lopi testing. REFLEXES: Trace+ and bilaterally symmetrical at the biceps, triceps, brachioradialis, and knees, 0 at both ankles. The plantar responses were flexor bilaterally. STANCE: Could not be tested. GAIT: Could not be tested. Impression/Recommendations Diagnostic Impression 1. Ms Leigh Ann Whitfield is a 67-year-old, right-handed, lady, who does have a past history of hypertension, dyslipidemia, chronic obstructive pulmonary disease, hypothyroidism, schizoaffective disorder, and recent falls, who was hospitalized on 05/22/2018 for an altered mental state and a fall at her board and long-term. She was found to be hypoxic, hypercapnic, and had a significant leukocytosis. Since she has been in the hospital, she has improved. 2. She feels a little better. She feels that her mind is clearer. She feels stronger generally. She is off BiPAP now. She is delusional today - says she is "." She denies any new neurologic symptoms. She is still forgetful. Her level of cooperation is variable. 3. On neurological examination, at this time, she is disoriented to the place, date and year. Has problems with recent and remote memory, visuospatial function and higher cognitive function. Has a dysarthric speech, has a mild anomia, refuses to move lower extremities, has globally diminished deep tendon reflexes, and is delusional that she is . 4. Laboratory data on my initial evaluation revealed that she had a significant leukocytosis with a WBC count of 19,700. Her chemistry panel reveals that her uric acid level was elevated at 8.2, magnesium was low at 1.6. ProBNP that was elevated at 186, albumin was low at 2.5. Her B12 level was normal at 924. Her folate level was normal at 40.6. Her TSH was normal at 1.92 with a free T4 of 1.13. The Hemoglobin A1c was at 6%. Latest arterial blood gas revealed a pH at 7.37, pCO2 at 62, and pO2 at 56. Her urinalysis revealed 1+ leukocyte esterase, 0-2 red blood cells, and 2-4 white blood cells per high-power field. 5. Further laboratory tests have revealed a minimally elevated ammonia at 34. 6. The last ABG done on 05/25/18 revealed a low pO2 at 65. 7. The CT scan of the brain without contrast revealed atrophy and some deep white matter changes, but no acute pathology. 8. The EGG done on 05/24/18 was normal in the awake and drowsy states. 9. The patient's history, neurological examination, laboratory data, and imaging studies are most compatible with a toxic metabolic encephalopathy related to the hypoxia, hypercapnia, and an infectious process. 10. She is also exhibiting psychotic features today. Recommendations 1. Agree with management thus far. 2. Aggressive treatment of the patient's respiratory failure as per Dr. Membreno. 3. Aggressive treatment of the patient's infectious process as per Dr. Cohen. 4. Treatment of psychosis. 5. Observe closely. Fransico Bolton M.D., M.S.P.H. Fransico Bolton MD May 27, 2018 14:08
--- NOTE | 2018-05-27 14:28 | Cardiac Electrophysiology PN ---
Assessment/Plan Assessment/Plan 1. Acute shortness of breath due to COPD. On and off on BIPAP and Abx per Dr. Membreno Ruled out for DC. EF 65%. On Lasix 40 iv daily. May need Tracheostomy 2. Elevated white count, likely pneumonia, on BiPAP. Antibiotic per Dr. Cohen. 3. History of psychosis. 4. Sinus tach due to PNA. No fib DW RN Subjective Subjective Off and on BIPAP, confused in restraints. RN at bedside. Objective Last 24 Hour Vital Signs Date Time Temp Pulse Resp B/P (MAP) Pulse Ox O2 Delivery O2 Flow Rate FiO2 05/27/18 13:28 82 24 93 Venturi Mask 14.0 55 05/27/18 13:20 85 24 92 Venturi Mask 14.0 55 05/27/18 12:00 Bi-pap 05/27/18 12:00 97.7 79 24 137/88 (104) 93 05/27/18 12:00 15.0 05/27/18 09:45 107 05/27/18 08:00 15.0 05/27/18 08:00 Bi-pap 05/27/18 08:00 97.9 102 19 141/85 (103) 93 05/27/18 07:28 77 21 95 Venturi Mask 14.0 55 05/27/18 07:20 85 22 94 Venturi Mask 14.0 55 05/27/18 04:50 15.0 55 05/27/18 04:00 85 05/27/18 04:00 60 05/27/18 04:00 Bi-pap 05/27/18 04:00 98.7 83 22 148/81 (103) 97 05/27/18 03:14 84 17 93 Facial 60 05/27/18 01:15 88 22 94 Bi-pap 60 05/27/18 01:05 77 19 92 Bi-pap 60 05/27/18 01:04 77 19 92 Facial 60 05/27/18 00:00 81 05/27/18 00:00 98.1 91 14 121/59 (79) 96 05/27/18 00:00 Bi-pap 05/27/18 00:00 60 05/26/18 22:30 93 24 93 60 05/26/18 22:00 60 05/26/18 20:00 15.0 2/8/19 20:00 100 05/26/18 20:00 Bi-pap 05/26/18 20:00 97.9 99 22 144/70 (94) 94 05/26/18 19:24 94 24 94 Venturi Mask 55 05/26/18 19:18 93 20 95 Venturi Mask 14.0 55 05/26/18 19:18 93 20 95 Venturi Mask 14.0 55 05/26/18 19:18 60 05/26/18 19:10 102 20 92 Venturi Mask 14.0 55 05/26/18 16:03 71 05/26/18 16:00 60 05/26/18 16:00 97.3 76 16 133/74 (93) 92 05/26/18 16:00 Bi-pap 05/26/18 15:56 76 18 96 Venturi Mask 4.0 30 05/26/18 15:42 76 22 93 Venturi Mask 4.0 30 05/26/18 14:32 81 23 95 Intake and Output 05/26/18 05/27/18 19:00 07:00 Intake Total 120 ml Output Total 550 ml Balance -430 ml Intake IV Total 110 ml Tube Feeding 10 ml Output Urine Total 550 ml # Voids 2 Laboratory Tests Test 05/26/18 18:00 05/27/18 04:10 Prothrombin Time 11.4 SEC (9.30-11.50) Prothromb Time International Ratio 1.1 (0.9-1.1) White Blood Count 22.1 K/UL (4.8-10.8) *H Red Blood Count 5.70 M/UL (4.20-5.40) H Hemoglobin 17.6 G/DL (12.0-16.0) H Hematocrit 54.0 % (37.0-47.0) H Mean Corpuscular Volume 95 FL (80-99) Mean Corpuscular Hemoglobin 30.9 PG (27.0-31.0) Mean Corpuscular Hemoglobin Concent 32.6 G/DL (32.0-36.0) Red Cell Distribution Width 11.5 % (11.6-14.8) L Platelet Count 379 K/UL (150-450) Mean Platelet Volume 5.6 FL (6.5-10.1) L Neutrophils (%) (Auto) % (45.0-75.0) Lymphocytes (%) (Auto) % (20.0-45.0) Monocytes (%) (Auto) % (1.0-10.0) Eosinophils (%) (Auto) % (0.0-3.0) Basophils (%) (Auto) % (0.0-2.0) Differential Total Cells Counted 100 Neutrophils % (Manual) 68 % (45-75) Lymphocytes % (Manual) 11 % (20-45) L Monocytes % (Manual) 7 % (1-10) Eosinophils % (Manual) 0 % (0-3) Basophils % (Manual) 0 % (0-2) Metamyelocytes % 1 % (0-0) H Myelocytes % 2 % (0-0) H Band Neutrophils 11 % (0-8) H Platelet Estimate Adequate Platelet Morphology Normal Red Blood Cell Morphology Normal Objective HEAD AND NECK: No JVD.Off and on BIPAP LUNGS: Coarse rhonchi. CARDIOVASCULAR: Tachy regular S1 and S2 no M/G/R ABDOMEN: Soft. EXTREMITIES: No pitting edema. Zane Ocampo MD May 27, 2018 14:28
[2018-05-27 16:00] VITALS: BP 143/86
--- NOTE | 2018-05-27 18:05 | General Progress Note ---
Assessment/Plan Problem List: (1) Hypoxia ICD Codes: R09.02 - Hypoxemia SNOMED: 227921861 (2) COPD exacerbation ICD Codes: J44.1 - Chronic obstructive pulmonary disease with (acute) exacerbation SNOMED: 631177073 (3) Hypercapnic respiratory failure, chronic ICD Codes: J96.12 - Chronic respiratory failure with hypercapnia SNOMED: 166119672 (4) Hypoxemia ICD Codes: R09.02 - Hypoxemia SNOMED: 928153285 (5) Benzodiazepine dependence ICD Codes: F13.20 - Sedative, hypnotic or anxiolytic dependence, uncomplicated SNOMED: 458630396 (6) Hypoalbuminemia ICD Codes: E88.09 - Other disorders of plasma-protein metabolism, not elsewhere classified SNOMED: 708535691 Status: progressing Assessment/Plan diet per pulmonary more alert off bipap on oxygen copd exacerbation no wheezing pna reivewed chart and labs Subjective Respiratory: Reports: shortness of breath Allergies: Coded Allergies: No Known Allergies (Unverified , 05/22/18) Objective Last 24 Hour Vital Signs Date Time Temp Pulse Resp B/P (MAP) Pulse Ox O2 Delivery O2 Flow Rate FiO2 05/27/18 16:17 81 05/27/18 16:00 15.0 05/27/18 16:00 Bi-pap 05/27/18 16:00 97.7 83 20 143/86 (105) 91 05/27/18 13:28 82 24 93 Venturi Mask 14.0 55 05/27/18 13:20 85 24 92 Venturi Mask 14.0 55 05/27/18 12:00 Bi-pap 05/27/18 12:00 97.7 79 24 137/88 (104) 93 05/27/18 12:00 15.0 05/27/18 11:35 78 05/27/18 09:45 107 05/27/18 08:00 15.0 05/27/18 08:00 Bi-pap 05/27/18 08:00 97.9 102 19 141/85 (103) 93 05/27/18 07:28 77 21 95 Venturi Mask 14.0 55 05/27/18 07:20 85 22 94 Venturi Mask 14.0 55 05/27/18 04:50 15.0 55 05/27/18 04:00 85 05/27/18 04:00 60 05/27/18 04:00 Bi-pap 05/27/18 04:00 98.7 83 22 148/81 (103) 97 05/27/18 03:14 84 17 93 Facial 60 05/27/18 01:15 88 22 94 Bi-pap 60 05/27/18 01:05 77 19 92 Bi-pap 60 05/27/18 01:04 77 19 92 Facial 60 05/27/18 00:00 81 05/27/18 00:00 98.1 91 14 121/59 (79) 96 05/27/18 00:00 Bi-pap 05/27/18 00:00 60 05/26/18 22:30 93 24 93 60 05/26/18 22:00 60 05/26/18 20:00 15.0 05/26/18 20:00 100 05/26/18 20:00 Bi-pap 05/26/18 20:00 97.9 99 22 144/70 (94) 94 05/26/18 19:24 94 24 94 Venturi Mask 55 05/26/18 19:18 93 20 95 Venturi Mask 14.0 55 05/26/18 19:18 93 20 95 Venturi Mask 14.0 55 05/26/18 19:18 60 05/26/18 19:10 102 20 92 Venturi Mask 14.0 55 Intake and Output 05/26/18 05/27/18 19:00 07:00 Intake Total 130 ml Output Total 550 ml Balance -420 ml IV Total 110 ml Tube Feeding 20 ml Output Urine Total 550 ml # Voids 2 Laboratory Tests 05/27/18 04:10: White Blood Count 22.1*H, Red Blood Count 5.70H, Hemoglobin 17.6H, Hematocrit 54.0H, Mean Corpuscular Volume 95, Mean Corpuscular Hemoglobin 30.9, Mean Corpuscular Hemoglobin Concent 32.6, Red Cell Distribution Width 11.5L, Platelet Count 379, Mean Platelet Volume 5.6L, Neutrophils (%) (Auto) , Lymphocytes (%) (Auto) , Monocytes (%) (Auto) , Eosinophils (%) (Auto) , Basophils (%) (Auto) , Differential Total Cells Counted 100, Neutrophils % ( Manual) 68, Lymphocytes % (Manual) 11L, Monocytes % (Manual) 7, Eosinophils % ( Manual) 0, Basophils % (Manual) 0, Metamyelocytes % 1H, Myelocytes % 2H, Band Neutrophils 11H, Platelet Estimate Adequate, Platelet Morphology Normal, Red Blood Cell Morphology Normal Height (Feet): 5 Height (Inches): 5.00 Weight (Pounds): 179 Cardiovascular: normal rate Respiratory/Chest: lungs clear Margot Dutta MD May 27, 2018 18:05
--- NOTE | 2018-05-27 19:19 | NUR ---
HAND-OFF: Report given to Sonny Sexton RN.
--- NOTE | 2018-05-27 19:30 | NUR ---
NURSE NOTES: Received pt in no apparent distress; awake; alert but confused. HOB elevated; no breathing difficulty; on 55% ventimask; sats 92%. Bilat soft wrist restaints on as pt tends to pull NGT out. Afebrile; BP stable; NSR. NGT on right nare in situ; TF with Glucerna 1.2 infuses at 30ml/h with 0 residuals.Voiding via purewick. HL on RFA intact. Will continue to monitor; bed locked and in low position; bed armed.
[2018-05-27 20:00] VITALS: BP 136/84
[2018-05-27] MEDS ORDERED: NS 275ml ONE (20:05)
--- NOTE | 2018-05-27 20:30 | NUR ---
NURSE NOTES: Placed Bipap on at 12/5; fiO2 .60. TF held.
[2018-05-27] MEDS: OLANZapine 10mg tab NG SCH (20:59)
--- NOTE | 2018-05-27 22:36 | General Progress Note ---
Assessment/Plan Problem List: (1) Schizoaffective disorder ICD Codes: F25.9 - Schizoaffective disorder, unspecified SNOMED: 16919524 Assessment/Plan cont prozac 20mg po qam cont zyprexa 10mg po qhs provided ro/st Subjective Neurologic/Psychiatric: Reports: anxiety, depressed, emotional problems Allergies: Coded Allergies: No Known Allergies (Unverified , 05/22/18) Subjective the pt is calm, more alert is not on benzos the pt wants to leave abg still abnormal Objective Last 24 Hour Vital Signs Date Time Temp Pulse Resp B/P (MAP) Pulse Ox O2 Delivery O2 Flow Rate FiO2 05/27/18 20:46 92 24 93 Facial 60 05/27/18 20:00 87 05/27/18 20:00 60 05/27/18 20:00 97.9 75 20 136/84 (101) 92 05/27/18 20:00 Bi-pap 05/27/18 19:33 81 17 92 Venturi Mask 14.0 55 05/27/18 19:21 70 18 90 Venturi Mask 14.0 55 05/27/18 16:17 81 05/27/18 16:00 15.0 05/27/18 16:00 Bi-pap 05/27/18 16:00 97.7 83 20 143/86 (105) 91 05/27/18 13:28 82 24 93 Venturi Mask 14.0 55 05/27/18 13:20 85 24 92 Venturi Mask 14.0 55 05/27/18 12:00 Bi-pap 05/27/18 12:00 97.7 79 24 137/88 (104) 93 05/27/18 12:00 15.0 05/27/18 11:35 78 05/27/18 09:45 107 05/27/18 08:00 15.0 05/27/18 08:00 Bi-pap 05/27/18 08:00 97.9 102 19 141/85 (103) 93 05/27/18 07:28 77 21 95 Venturi Mask 14.0 55 05/27/18 07:20 85 22 94 Venturi Mask 14.0 55 05/27/18 04:50 15.0 55 05/27/18 04:00 85 05/27/18 04:00 60 05/27/18 04:00 Bi-pap 05/27/18 04:00 98.7 83 22 148/81 (103) 97 05/27/18 03:14 84 17 93 Facial 60 05/27/18 01:15 88 22 94 Bi-pap 60 05/27/18 01:05 77 19 92 Bi-pap 60 05/27/18 01:04 77 19 92 Facial 60 05/27/18 00:00 81 05/27/18 00:00 98.1 91 14 121/59 (79) 96 05/27/18 00:00 Bi-pap 05/27/18 00:00 60 Intake and Output 05/26/18 05/27/18 19:00 07:00 Intake Total 130 ml Output Total 550 ml Balance -420 ml IV Total 110 ml Tube Feeding 20 ml Output Urine Total 550 ml # Voids 2 Laboratory Tests 05/27/18 04:10: White Blood Count 22.1*H, Red Blood Count 5.70H, Hemoglobin 17.6H, Hematocrit 54.0H, Mean Corpuscular Volume 95, Mean Corpuscular Hemoglobin 30.9, Mean Corpuscular Hemoglobin Concent 32.6, Red Cell Distribution Width 11.5L, Platelet Count 379, Mean Platelet Volume 5.6L, Neutrophils (%) (Auto) , Lymphocytes (%) (Auto) , Monocytes (%) (Auto) , Eosinophils (%) (Auto) , Basophils (%) (Auto) , Differential Total Cells Counted 100, Neutrophils % ( Manual) 68, Lymphocytes % (Manual) 11L, Monocytes % (Manual) 7, Eosinophils % ( Manual) 0, Basophils % (Manual) 0, Metamyelocytes % 1H, Myelocytes % 2H, Band Neutrophils 11H, Platelet Estimate Adequate, Platelet Morphology Normal, Red Blood Cell Morphology Normal Height (Feet): 5 Height (Inches): 5.00 Weight (Pounds): 179 General Appearance: no apparent distress, alert Reagan Marshall MD May 27, 2018 22:36
[2018-05-28] VITALS: BP 137/88
--- NOTE | 2018-05-28 | NUR ---
NURSE NOTES: Incontinent of urine. Purewick on but pt kept moving. Catatonic. Continues on Bipap; TF on hold. VSS, afebrile, no distress.BS 114. No coverage. Saturating 96% on .60FiO2
[2018-05-28 04:00] VITALS: BP 144/100
--- NOTE | 2018-05-28 04:00 | NUR ---
NURSE NOTES: Complete bath given. Incontinent of urine. No BM. Skin warm, dry and intact. HL patent. Still on the Bipap; no respiratory distress noted. Sats 99%. NSR on the monitor. TF remains on hold.
--- NOTE | 2018-05-28 07:10 | NUR ---
HAND-OFF: Report given to Ricco Little.
--- NOTE | 2018-05-28 07:15 | NUR ---
NURSE NOTES: Report received from Moon Wilson RN.Pt resting in bed asleep on Bipap 12/ Fio2 60%,noted no resp distress,no signs of pain or discomfort,S-Tach on the monitor,NGT feeding Glucerna 1.2 turned off while pt is on BIPAP.Pt incontinent of urine,with pure wick in placed draining latonya colored urine,IV site hl to RAC intact ,skin warm and dry to touch,SR up x2 bilat wrist restraints in placed,HOB elevated,bed lock in lowest position,will continue with plans of care.
[2018-05-28 08:00] VITALS: BP 129/92
--- NOTE | 2018-05-28 08:00 | NUR ---
NURSE NOTES: Pt placed on Venturi mask 55%,NGTF Glucerna 1.2 started at 40ml/hr,goal is 55ml/hr,NGT in placed per auscultation.HOB elevated.Pt very congested,oral secretions suctioned PRN to thick peterson phegm in large amount.
[2018-05-28] MEDS: Solu-MEDROL 125mg Inj IVP SCH (08:41)
[2018-05-28] MEDS: Cefepime HCl 1 GM in D5W 55 ML IVPB SCH ×2 (08:41→20:07)
[2018-05-28] MEDS: Heparin 5000 units/ml inj SUBQ SCH ×2 (08:43→20:10)
--- NOTE | 2018-05-28 09:48 | General Progress Note ---
Assessment/Plan Assessment/Plan (1) S/p fall (2) COPD Exacerbation (3) OA Patient to be continued on Tylenol D/w Dr. Garcia and he concurred. Subjective Date patient seen: May 28, 2018 Time patient seen: 08:30 - am ROS Limited/Unobtainable: Yes Allergies: Coded Allergies: No Known Allergies (Unverified , 05/22/18) Subjective Patient is in bed and shows no signs of pain and denies any pain at this time. Objective Last 24 Hour Vital Signs Date Time Temp Pulse Resp B/P (MAP) Pulse Ox O2 Delivery O2 Flow Rate FiO2 05/28/18 08:08 Bi-pap 05/28/18 08:00 60 05/28/18 08:00 97.2 85 30 129/92 (104) 94 05/28/18 07:35 80 21 97 05/28/18 07:35 Venturi Mask 05/28/18 07:35 Venturi Mask 05/28/18 05:10 83 22 95 Facial 60 05/28/18 04:00 60 05/28/18 04:00 97.3 80 14 144/100 (115) 99 05/28/18 04:00 81 05/28/18 04:00 Bi-pap 05/28/18 02:55 81 20 96 Facial 60 05/28/18 01:23 79 26 96 Facial 60 05/28/18 00:00 60 05/28/18 00:00 75 05/28/18 00:00 Bi-pap 05/28/18 00:00 97.5 75 14 137/88 (104) 96 05/27/18 22:42 89 26 95 Facial 60 05/27/18 20:46 92 24 93 Facial 60 05/27/18 20:00 87 05/27/18 20:00 60 05/27/18 20:00 97.9 75 20 136/84 (101) 92 05/27/18 20:00 Bi-pap 05/27/18 19:33 81 17 92 Venturi Mask 14.0 55 05/27/18 19:21 70 18 90 Venturi Mask 14.0 55 05/27/18 16:17 81 05/27/18 16:00 15.0 05/27/18 16:00 Bi-pap 05/27/18 16:00 97.7 83 20 143/86 (105) 91 05/27/18 13:28 82 24 93 Venturi Mask 14.0 55 05/27/18 13:20 85 24 92 Venturi Mask 14.0 55 05/27/18 12:00 Bi-pap 05/27/18 12:00 97.7 79 24 137/88 (104) 93 05/27/18 12:00 15.0 05/27/18 11:35 78 Intake and Output 05/27/18 05/28/18 18:59 06:59 Intake Total 375 ml 140 ml Output Total 700 ml 150 ml Balance -325 ml -10 ml Intake Free Water 160 ml IV Total 55 ml 110 ml Tube Feeding 160 ml 30 ml Output Urine Total 700 ml 150 ml Height (Feet): 5 Height (Inches): 5.00 Weight (Pounds): 179 Objective General Appearance: alert EENT: PERRL/EOMI Neck: non-tender, supple Cardiovascular: normal rate, regular rhythm Respiratory/Chest: decreased breath sounds Abdomen: non tender, soft Extremities: non-tender Edema: trace edema Neurologic: alert, oriented x 3 Skin: warm/dry Anjum Dmuont May 28, 2018 09:48
--- NOTE | 2018-05-28 10:15 | NUR ---
CASE MANAGEMENT: REVIEW 05/28/2018 SI: COPD EXACERBATION. HYPERCAPNIC RESPIRATORY FAILURE. T 97.2 HR 85 RR 30 B/P 129/92 SATS 94% ON VENTURI MASK FiO2 60 NO LABS TODAY IS: ALBUTEROL HHN Q6HR MUCOMYST HHN TID SOLU MEDROL IV QD LASIX IV QD CEFEPIME IV Q12H NGT FEEDING GLUCERNA 1.2 @55 ML/HR STEP DOWN UNIT STATUS DCP: PATIENT IS FROM [facility]
--- NOTE | 2018-05-28 10:58 | Infectious Diseases Prog Note ---
Assessment/Plan Assessment/Plan A; Chronic obstructive pulmonary disease exacerbation, leukocytosis; schizoaffective disorder, hypothyroidism, hyperlipidemia, hypertension. Positive blood culture with CoANS P: Continue Cefepime Subjective ROS Limited/Unobtainable: Yes Constitutional: Reports: no symptoms Neurologic: Reports: confusion, other - on restraint Allergies: Coded Allergies: No Known Allergies (Unverified , 05/22/18) Objective Vital Signs Last 24 Hour Vital Signs Date Time Temp Pulse Resp B/P (MAP) Pulse Ox O2 Delivery O2 Flow Rate FiO2 05/28/18 08:08 Bi-pap 05/28/18 08:00 60 05/28/18 08:00 75 05/28/18 08:00 97.2 85 30 129/92 (104) 94 05/28/18 07:35 80 21 97 05/28/18 07:35 Venturi Mask 05/28/18 07:35 Venturi Mask 05/28/18 05:10 83 22 95 Facial 60 05/28/18 04:00 60 05/28/18 04:00 97.3 80 14 144/100 (115) 99 05/28/18 04:00 81 05/28/18 04:00 Bi-pap 05/28/18 02:55 81 20 96 Facial 60 05/28/18 01:23 79 26 96 Facial 60 05/28/18 00:00 60 05/28/18 00:00 75 05/28/18 00:00 Bi-pap 05/28/18 00:00 97.5 75 14 137/88 (104) 96 05/27/18 22:42 89 26 95 Facial 60 05/27/18 20:46 92 24 93 Facial 60 05/27/18 20:00 87 05/27/18 20:00 60 05/27/18 20:00 97.9 75 20 136/84 (101) 92 05/27/18 20:00 Bi-pap 05/27/18 19:33 81 17 92 Venturi Mask 14.0 55 05/27/18 19:21 70 18 90 Venturi Mask 14.0 55 05/27/18 16:17 81 05/27/18 16:00 15.0 05/27/18 16:00 Bi-pap 05/27/18 16:00 97.7 83 20 143/86 (105) 91 05/27/18 13:28 82 24 93 Venturi Mask 14.0 55 05/27/18 13:20 85 24 92 Venturi Mask 14.0 55 05/27/18 12:00 Bi-pap 05/27/18 12:00 97.7 79 24 137/88 (104) 93 05/27/18 12:00 15.0 05/27/18 11:35 78 Height (Feet): 5 Height (Inches): 5.00 Weight (Pounds): 179 HEENT: other - on BIPAP Respiratory/Chest: expiratory wheezing Cardiovascular: normal rate Abdomen: soft, non tender, other - NG tube feeding Extremities: no edema Neurologic/Psychiatric: other - sleeping Current Medications Medications (Trade) Dose Ordered Sig/Salty Route PRN Reason Start Time Stop Time Status Last Admin Dose Admin Acetaminophen (Tylenol) 500 mg Q4H PRN NG Mild Pain/Temp > 100.5 05/27/18 13:09 06/22/18 13:08 Acetylcysteine (Mucomyst) 100 mg TIDRT HHN 05/25/18 13:00 06/24/18 12:59 05/27/18 19:21 Cefepime HCl 1 gm/ Dextrose 55 ml @ 110 mls/hr EVERY 12 HOURS IVPB 05/22/18 21:00 05/29/18 20:59 05/28/18 08:41 Fluoxetine HCl (PROzac) 20 mg DAILY NG 05/28/18 09:00 06/22/18 11:44 05/28/18 08:40 Furosemide (Lasix) 40 mg DAILY IV 05/23/18 09:00 06/22/18 08:59 05/28/18 08:41 Heparin Sodium (Porcine) (Heparin 5000 units/ml) 5,000 units EVERY 12 HOURS SUBQ 05/22/18 21:00 06/21/18 20:59 05/28/18 08:43 Methylprednisolone Sodium Succinate (Solu-MEDROL) 60 mg DAILY IVP 05/24/18 09:00 06/23/18 08:59 05/28/18 08:41 Olanzapine (ZyPREXA) 10 mg BEDTIME NG 05/27/18 21:00 06/22/18 20:59 05/27/18 20:59 Migel Cohen MD May 28, 2018 10:58
[2018-05-28 12:00] VITALS: BP 137/71
--- NOTE | 2018-05-28 12:11 | Nephrology Progress Note ---
Assessment/Plan Problem List: (1) Proteinuria (2) Hypoalbuminemia (3) COPD exacerbation (4) Schizoaffective disorder Assessment admitted with exacerbation COPD and Hypoxia High WBCs : UTI , Pneumonia Proteinuria and HypoAlbuminemia Plan BIPAP Antibiotics 24 h urine proteins CAN NOT BE COLLECTED UNLESS FOLEY_ WILL DEFER 2D echo Left ventricular ejection fraction grossly estimated to be 65 %. optimize cardiac status Subjective ROS Limited/Unobtainable: Yes Objective Objective Last 24 Hour Vital Signs Date Time Temp Pulse Resp B/P (MAP) Pulse Ox O2 Delivery O2 Flow Rate FiO2 05/28/18 12:09 15.0 05/28/18 08:08 Bi-pap 05/28/18 08:00 60 05/28/18 08:00 75 05/28/18 08:00 97.2 85 30 129/92 (104) 94 05/28/18 07:35 80 21 97 05/28/18 07:35 Venturi Mask 05/28/18 07:35 Venturi Mask 05/28/18 05:10 83 22 95 Facial 60 05/28/18 04:00 60 05/28/18 04:00 97.3 80 14 144/100 (115) 99 05/28/18 04:00 81 05/28/18 04:00 Bi-pap 05/28/18 02:55 81 20 96 Facial 60 05/28/18 01:23 79 26 96 Facial 60 05/28/18 00:00 60 05/28/18 00:00 75 05/28/18 00:00 Bi-pap 05/28/18 00:00 97.5 75 14 137/88 (104) 96 05/27/18 22:42 89 26 95 Facial 60 05/27/18 20:46 92 24 93 Facial 60 05/27/18 20:00 87 05/27/18 20:00 60 05/27/18 20:00 97.9 75 20 136/84 (101) 92 05/27/18 20:00 Bi-pap 05/27/18 19:33 81 17 92 Venturi Mask 14.0 55 05/27/18 19:21 70 18 90 Venturi Mask 14.0 55 05/27/18 16:17 81 05/27/18 16:00 15.0 05/27/18 16:00 Bi-pap 05/27/18 16:00 97.7 83 20 143/86 (105) 91 05/27/18 13:28 82 24 93 Venturi Mask 14.0 55 05/27/18 13:20 85 24 92 Venturi Mask 14.0 55 Intake and Output 05/27/18 05/28/18 19:00 07:00 Intake Total 395 ml 110 ml Output Total 700 ml 150 ml Balance -305 ml -40 ml Intake Free Water 160 ml IV Total 55 ml 110 ml Tube Feeding 180 ml 0 ml Output Urine Total 700 ml 150 ml Height (Feet): 5 Height (Inches): 5.00 Weight (Pounds): 179 EENT: other - on BIPAPA Cardiovascular: normal rate Respiratory/Chest: decreased breath sounds Abdomen: distended Objective no change Seamus Morfin MD May 28, 2018 12:11
--- NOTE | 2018-05-28 13:00 | Neurology Progress Note ---
Interim History Interim History Interim History Ms. Whitfield feels about the same as yesterday. She feels that her mind is not completely clear. She feels generally weak. She is off BiPAP now. She denies any new neurologic symptoms. She is still forgetful. She is more cooperative. Review of Systems Neuro Review of Systems Benign. Objective Physical Exam Last Vital Signs Date Time Temp Pulse Resp B/P (MAP) Pulse Ox O2 Delivery O2 Flow Rate FiO2 05/28/18 12:09 15.0 05/28/18 12:00 97.7 94 26 137/71 (93) 95 05/28/18 12:00 Venturi Mask 05/28/18 08:00 60 Neurologic Exam Objective PHYSICAL EXAMINATION: GENERAL: She is a well-developed, well-nourished, pleasant lady, lying in bed. HEAD: Normocephalic and atraumatic. EENT: Examination benign NECK: No neck rigidity was observed. NEUROLOGICAL EXAMINATION: MENTAL STATUS EXAMINATION: She was awake and alert. She was oriented to self and February only. She was able to recall 3/3 words immediately but could only remember 1/3 after 1 minute and after 3 minutes. She was able to remember president Theodora only Her mathematical skills were impaired. Her visuospatial function was also impaired. SPEECH: She had a mild dysarthria. LANGUAGE: She had a mild anomia for low-frequency words. CRANIAL NERVE EXAMINATION: II: The visual beltran were intact on confrontation testing. III, IV & : The external ocular movements were full and the pupils 3 mm in diameter, equal, round, regular, and reactive to light. V: She had normal facial sensations, and the temporales, masseters, and pterygoids functioned normally. VII: She had normal facial expressions and no facial asymmetry. VIII: She was able to hear well bilaterally and had no nystagmus. IX: The palate moved symmetrically on phonation. X: She had no hoarseness of voice. XI: The sternocleidomastoids and trapezii functioned normally. XII: The tongue was in the midline without any fasciculations or atrophy. MOTOR SYSTEM: The tone was normal in all four extremities. Examination of muscle mass revealed no focal wasting. Examination of power revealed G 5/5 power in the upper extremities. She also had G 5/5 in the lower extremities except for G 4/5 in the iliopsoas. SENSORY EXAMINATION: She had intact sensations to light touch but did not cooperate for further sensory testing. COORDINATION: She performed well on [id number]-ghod testing. She was unable to perform olgr-ql-knqs testing. REFLEXES: Trace+ and bilaterally symmetrical at the biceps, triceps, brachioradialis, and knees, 0 at both ankles. The plantar responses were flexor bilaterally. STANCE: Could not be tested. GAIT: Could not be tested. Impression/Recommendations Diagnostic Impression 1. Ms Leigh Ann Whitfield is a 67-year-old, right-handed, lady, who does have a past history of hypertension, dyslipidemia, chronic obstructive pulmonary disease, hypothyroidism, schizoaffective disorder, and recent falls, who was hospitalized on 05/22/2018 for an altered mental state and a fall [facility]. She was found to be hypoxic, hypercapnic, and had a significant leukocytosis. Since she has been in the hospital, she has improved. 2. She feels about the same as yesterday. She feels that her mind is not completely clear. She feels generally weak. She is off BiPAP now. She denies any new neurologic symptoms. She is still forgetful. She is more cooperative. 3. On neurological examination, at this time, she is disoriented to the place, date and year. Has problems with recent and remote memory, visuospatial function and higher cognitive function. Has a dysarthric speech, has a mild anomia, has proximal lower extremities weakness, an has globally diminished deep tendon reflexes. 4. Laboratory data on my initial evaluation revealed that she had a significant leukocytosis with a WBC count of 19,700. Her chemistry panel reveals that her uric acid level was elevated at 8.2, magnesium was low at 1.6. ProBNP that was elevated at 186, albumin was low at 2.5. Her B12 level was normal at 924. Her folate level was normal at 40.6. Her TSH was normal at 1.92 with a free T4 of 1.13. The Hemoglobin A1c was at 6%. Latest arterial blood gas revealed a pH at 7.37, pCO2 at 62, and pO2 at 56. Her urinalysis revealed 1+ leukocyte esterase, 0-2 red blood cells, and 2-4 white blood cells per high-power field. 5. Further laboratory tests have revealed a minimally elevated ammonia at 34. 6. The last ABG done on 05/25/18 revealed a low pO2 at 65. 7. She continues to have a significant leukocytosis with a WBC count of 21,100. 8. The CT scan of the brain without contrast revealed atrophy and some deep white matter changes, but no acute pathology. 9. The EGG done on 05/24/18 was normal in the awake and drowsy states. 10. The patient's history, neurological examination, laboratory data, and imaging studies are most compatible with a toxic metabolic encephalopathy related to the hypoxia, hypercapnia, and an infectious process. 11. She is not exhibiting psychotic features today. Recommendations 1. Agree with management thus far. 2. Aggressive treatment of the patient's respiratory failure as per Dr. Membreno. 3. Aggressive treatment of the patient's infectious process as per Dr. Cohen. 4. Observe closely. Fransico Bolton M.D., M.S.P.H. Fransico Bolton MD May 28, 2018 13:00
--- NOTE | 2018-05-28 13:00 | NUR ---
NURSE NOTES: Pt stable ,no resp distress presented ,continue on VM 55%,turned and repositioned, congested on and off, nasal suctioning done by Sharyn Torres
[2018-05-28] MEDS ORDERED: NS 275ml ONE (15:45)
--- NOTE | 2018-05-28 15:46 | Cardiac Electrophysiology PN ---
Assessment/Plan Assessment/Plan 1. Acute shortness of breath due to COPD. On and off on BIPAP and Abx per Dr. Membreno Ruled out for [place]. EF 65%. On Lasix 40 iv daily. May need Tracheostomy 2. Elevated white count, likely pneumonia, on BiPAP. Antibiotic per Dr. Cohen. 3. History of psychosis. 4. Sinus tach due to PNA. No fib DW RN Subjective Subjective Off and on BIPAP in restraints. RN at bedside. Objective Last 24 Hour Vital Signs Date Time Temp Pulse Resp B/P (MAP) Pulse Ox O2 Delivery O2 Flow Rate FiO2 05/28/18 13:10 Venturi Mask 05/28/18 13:10 Venturi Mask 05/28/18 12:09 15.0 05/28/18 12:00 97.7 94 26 137/71 (93) 95 05/28/18 12:00 94 05/28/18 12:00 Venturi Mask 05/28/18 08:08 Bi-pap 05/28/18 08:00 60 05/28/18 08:00 75 05/28/18 08:00 97.2 85 30 129/92 (104) 94 05/28/18 07:35 80 21 97 05/28/18 07:35 Venturi Mask 05/28/18 07:35 Venturi Mask 05/28/18 05:10 83 22 95 Facial 60 05/28/18 04:00 60 05/28/18 04:00 97.3 80 14 144/100 (115) 99 05/28/18 04:00 81 05/28/18 04:00 Bi-pap 05/28/18 02:55 81 20 96 Facial 60 05/28/18 01:23 79 26 96 Facial 60 05/28/18 00:00 60 05/28/18 00:00 75 05/28/18 00:00 Bi-pap 05/28/18 00:00 97.5 75 14 137/88 (104) 96 05/27/18 22:42 89 26 95 Facial 60 05/27/18 20:46 92 24 93 Facial 60 05/27/18 20:00 87 05/27/18 20:00 60 05/27/18 20:00 97.9 75 20 136/84 (101) 92 05/27/18 20:00 Bi-pap 05/27/18 19:33 81 17 92 Venturi Mask 14.0 55 05/27/18 19:21 70 18 90 Venturi Mask 14.0 55 05/27/18 16:17 81 05/27/18 16:00 15.0 05/27/18 16:00 Bi-pap 05/27/18 16:00 97.7 83 20 143/86 (105) 91 Intake and Output 05/27/18 05/28/18 19:00 07:00 Intake Total 395 ml 110 ml Output Total 700 ml 150 ml Balance -305 ml -40 ml Intake Free Water 160 ml IV Total 55 ml 110 ml Tube Feeding 180 ml 0 ml Output Urine Total 700 ml 150 ml Objective HEAD AND NECK: No JVD.Face Mask on today LUNGS: Coarse rhonchi. CARDIOVASCULAR: Regular S1 and S2 no M/G/R ABDOMEN: Soft. EXTREMITIES: No pitting edema. Zane Ocampo MD May 28, 2018 15:46
--- NOTE | 2018-05-28 15:56 | Pulmonology Progress Note ---
Assessment/Plan Assessment/Plan Pulmonary Progress Note Assessment/Plan Problems: (1) COPD exacerbation (2) Hypercapnic respiratory failure, chronic (3) Hypoxia (4) Benzodiazepine dependence (5) Hypercarbia (6) Schizoaffective disorder Assessment/Plan ASSESSMENT: The patient is a 67-year-old female smoker with history of chronic obstructive pulmonary disease, assisted living resident, hypertension, hyperlipidemia, hypothyroidism, presenting after a fall, respiratory distress, likely exacerbation of chronic obstructive pulmonary disease and urinary tract infection. PROBLEM LIST: 1. Acute on chronic hypercapnic respiratory failure. 2. Chronic obstructive pulmonary disease with acute exacerbation. 3. Urinary tract infection ( alpha hemolytic strep) 4. CoNS in blood likely contaminant 5. Leukocytosis secondary to above and steroids 6. Questionable fall. 7. History of psychiatric disorder. 8. Hypertension, hyperlipidemia, hypothyroidism. 9. Mild elevation of D-dimer. TREATMENT PLAN: 1. CXR 2. ABG 3. F/U AML 4. Optimize pulmonary hygiene/mobilize as tolerated. 5. BiPAP 12/5 qHS and PRN 7. Titrate FiO2 to keep saturations greater than 90%. 8. RTC and PRN DuoNeb. 9. Continue SM 60 IV qDaily (D3) 10. Add Mucomyst HHN's and CPT QID 11. Monitor for signs of respiratory infection. 12. Continue cefepime (D4), F/U repeat blood Cx's 13. Duplex neg, D-dim elevated, await CT-A 14. NPO while on BiPAP, once off we will advance diet cautiously with aspiration precautions. 15. Monitor volumes and renal function, continue IV Lasix per Cardiology. 16. DVT prophylaxis with heparin subcutaneous. 17. F/U neuro recs, monitor MS, F/U EEG, F/U ammonia 18. The patient should have outpatient workup including pulmonary function tests Subjective Allergies: Coded Allergies: No Known Allergies (Unverified , 05/22/18) Subjective AFVSS on BiPAP -> VM awake and alert _+ cough no SOB no FC AML pending Objective Vital Signs Noted General Appearance: WD/WN, no acute distress HEENT: normocephalic, atraumatic, anicteric, mucous membranes moist Respiratory/Chest: rhonchi Cardiovascular: normal peripheral pulses, normal rate, regular rhythm Abdomen: normal bowel sounds, soft, non tender, no organomegaly, non distended , no mass Extremities: no cyanosis, no clubbing, no edema Microbiology Date/Time Source Procedure Growth Status 05/22/18 13:00 Blood Blood Culture - Preliminary NO GROWTH AFTER 48 HOURS Resulted 05/22/18 13:00 Blood Blood Culture - Final Staphylococcus Sp Coag Neg Complete 05/22/18 13:00 Nasal Nares Influenza Types A,B Antigen (JALEESA) - Final Complete 05/22/18 13:05 Urine,Clean Catch Urine Culture - Final Aerococcus Urinae Complete 05/23/18 10:00 Rectum VRE Culture - Final NO VANCOMYCIN RESISTANT ENTEROCOCCUS ... Complete 05/22/18 16:07 Rectum - Final NO CARBAPENEM-RESISTANT ENTEROBACTERI... Complete Laboratory Tests 05/24/18 21:15: Ammonia 34H Current Medications Medications (Trade) Dose Ordered Sig/Salty Route PRN Reason Start Time Stop Time Status Last Admin Dose Admin Acetaminophen (Tylenol) 500 mg Q4H PRN ORAL Mild Pain/Temp > 100.5 05/23/18 07:30 06/22/18 07:29 05/24/18 09:44 Albuterol/ Ipratropium (Albuterol/ Ipratropium) 3 ml Q4H PRN HHN Shortness of Breath 05/22/18 19:45 05/27/18 19:44 Albuterol/ Ipratropium (Albuterol/ Ipratropium) 3 ml Q6HRT HHN 05/23/18 01:00 05/28/18 00:59 05/25/18 07:35 Cefepime HCl 1 gm/ Dextrose 55 ml @ 110 mls/hr EVERY 12 HOURS IVPB 05/22/18 21:00 05/29/18 20:59 05/25/18 09:01 Fluoxetine HCl (PROzac) 20 mg DAILY ORAL 05/23/18 11:45 06/22/18 11:44 05/25/18 08:58 Furosemide (Lasix) 40 mg DAILY IV 05/23/18 09:00 06/22/18 08:59 05/25/18 08:57 Heparin Sodium (Porcine) (Heparin 5000 units/ml) 5,000 units EVERY 12 HOURS SUBQ 05/22/18 21:00 06/21/18 20:59 05/25/18 08:59 Iopamidol (Isovue-370 150ml) 150 ml NOW PRN INJ Radiology Procedure 05/23/18 15:00 05/25/18 14:59 Methylprednisolone Sodium Succinate (Solu-MEDROL) 60 mg DAILY IVP 05/24/18 09:00 06/23/18 08:59 05/25/18 08:57 Olanzapine (ZyPREXA) 10 mg BEDTIME ORAL 05/23/18 21:00 06/22/18 20:59 05/24/18 20:39 Subjective ROS Limited/Unobtainable: No Allergies: Coded Allergies: No Known Allergies (Unverified , 05/22/18) Objective Last 24 Hour Vital Signs Date Time Temp Pulse Resp B/P (MAP) Pulse Ox O2 Delivery O2 Flow Rate FiO2 05/28/18 13:10 Venturi Mask 05/28/18 13:10 Venturi Mask 05/28/18 12:09 15.0 05/28/18 12:00 97.7 94 26 137/71 (93) 95 05/28/18 12:00 94 05/28/18 12:00 Venturi Mask 05/28/18 08:08 Bi-pap 05/28/18 08:00 60 05/28/18 08:00 75 05/28/18 08:00 97.2 85 30 129/92 (104) 94 05/28/18 07:35 80 21 97 05/28/18 07:35 Venturi Mask 05/28/18 07:35 Venturi Mask 05/28/18 05:10 83 22 95 Facial 60 05/28/18 04:00 60 05/28/18 04:00 97.3 80 14 144/100 (115) 99 05/28/18 04:00 81 05/28/18 04:00 Bi-pap 05/28/18 02:55 81 20 96 Facial 60 05/28/18 01:23 79 26 96 Facial 60 05/28/18 00:00 60 05/28/18 00:00 75 05/28/18 00:00 Bi-pap 05/28/18 00:00 97.5 75 14 137/88 (104) 96 05/27/18 22:42 89 26 95 Facial 60 05/27/18 20:46 92 24 93 Facial 60 05/27/18 20:00 87 05/27/18 20:00 60 05/27/18 20:00 97.9 75 20 136/84 (101) 92 05/27/18 20:00 Bi-pap 05/27/18 19:33 81 17 92 Venturi Mask 14.0 55 05/27/18 19:21 70 18 90 Venturi Mask 14.0 55 05/27/18 16:17 81 05/27/18 16:00 15.0 05/27/18 16:00 Bi-pap 05/27/18 16:00 97.7 83 20 143/86 (105) 91 Intake and Output 05/27/18 05/28/18 19:00 07:00 Intake Total 395 ml 110 ml Output Total 700 ml 150 ml Balance -305 ml -40 ml Intake Free Water 160 ml IV Total 55 ml 110 ml Tube Feeding 180 ml 0 ml Output Urine Total 700 ml 150 ml Current Medications Medications (Trade) Dose Ordered Sig/Salty Route PRN Reason Start Time Stop Time Status Last Admin Dose Admin Acetaminophen (Tylenol) 500 mg Q4H PRN NG Mild Pain/Temp > 100.5 05/27/18 13:09 06/22/18 13:08 Acetylcysteine (Mucomyst) 100 mg TIDRT HHN 05/25/18 13:00 06/24/18 12:59 05/27/18 19:21 Cefepime HCl 1 gm/ Dextrose 55 ml @ 110 mls/hr EVERY 12 HOURS IVPB 05/22/18 21:00 05/29/18 20:59 05/28/18 08:41 Fluoxetine HCl (PROzac) 20 mg DAILY NG 05/28/18 09:00 06/22/18 11:44 05/28/18 08:40 Furosemide (Lasix) 40 mg DAILY IV 05/23/18 09:00 06/22/18 08:59 05/28/18 08:41 Heparin Sodium (Porcine) (Heparin 5000 units/ml) 5,000 units EVERY 12 HOURS SUBQ 05/22/18 21:00 06/21/18 20:59 05/28/18 08:43 Methylprednisolone Sodium Succinate (Solu-MEDROL) 60 mg DAILY IVP 05/24/18 09:00 06/23/18 08:59 05/28/18 08:41 Olanzapine (ZyPREXA) 10 mg BEDTIME NG 05/27/18 21:00 06/22/18 20:59 05/27/18 20:59 Mele Mccullough MD May 28, 2018 15:56
[2018-05-28 16:00] VITALS: BP 137/82
--- NOTE | 2018-05-28 19:15 | NUR ---
HAND-OFF: Report given to Jerrell Cox RN.
--- NOTE | 2018-05-28 19:20 | NUR ---
NURSE NOTES: Received report from Anabel RN, pt. in bed awake, alert to name- no signs or symptoms of acute cardiac or respiratory distress noted, bed in lowest position and call light within easy reach, bed alarm on, side rails up x's3- safety brakes engaged, pt. appears to be tolerating current venturi mask settings well- sating at 96%- no distress noted, pt. has Rt. Nare NGt- Glucerna 1.2 at 50cc/hr- per endorsement- pt. is to be at 55cc/hr per Goal- no residual noted. pt. is to be on BIPAP 12/5 Fio2 at 60%- and feeding will be stopped prior to BIPAP 2 hours before, pt. is clean and dry, and appears to be comfortable, Rt. AC 20G iv intact and patent, safety measures continued, will continue with plan of care.
[2018-05-28 20:00] VITALS: BP 134/86
--- NOTE | 2018-05-28 20:00 | NUR ---
NURSE NOTES: Feeding stopped now prior to application of BIPAP at 2200- will continue to monitor pt.- no residual noted.
[2018-05-28] MEDS: OLANZapine 10mg tab NG SCH (20:07)
--- NOTE | 2018-05-28 21:11 | General Progress Note ---
Assessment/Plan Problem List: (1) Hypoxia ICD Codes: R09.02 - Hypoxemia SNOMED: 794719341 (2) COPD exacerbation ICD Codes: J44.1 - Chronic obstructive pulmonary disease with (acute) exacerbation SNOMED: 410280627 (3) Hypercapnic respiratory failure, chronic ICD Codes: J96.12 - Chronic respiratory failure with hypercapnia SNOMED: 488084098 (4) Hypoxemia ICD Codes: R09.02 - Hypoxemia SNOMED: 622343656 (5) Benzodiazepine dependence ICD Codes: F13.20 - Sedative, hypnotic or anxiolytic dependence, uncomplicated SNOMED: 860308475 (6) Hypoalbuminemia ICD Codes: E88.09 - Other disorders of plasma-protein metabolism, not elsewhere classified SNOMED: 368842859 Status: unchanged Assessment/Plan very congested will speak w pulmongist still confused and lethargic on nonrebreather copd exacerbation no wheezing pna reivewed chart and labs Subjective ROS Limited/Unobtainable: Yes Allergies: Coded Allergies: No Known Allergies (Unverified , 05/22/18) Objective Last 24 Hour Vital Signs Date Time Temp Pulse Resp B/P (MAP) Pulse Ox O2 Delivery O2 Flow Rate FiO2 05/28/18 16:14 Venturi Mask 05/28/18 16:00 15.0 05/28/18 16:00 98.2 101 30 137/82 (100) 92 05/28/18 16:00 105 05/28/18 13:10 Venturi Mask 05/28/18 13:10 Venturi Mask 05/28/18 12:09 15.0 05/28/18 12:00 97.7 94 26 137/71 (93) 95 05/28/18 12:00 94 05/28/18 12:00 Venturi Mask 05/28/18 08:08 Bi-pap 05/28/18 08:00 60 05/28/18 08:00 75 05/28/18 08:00 97.2 85 30 129/92 (104) 94 05/28/18 07:35 80 21 97 05/28/18 07:35 Venturi Mask 05/28/18 07:35 Venturi Mask 05/28/18 05:10 83 22 95 Facial 60 05/28/18 04:00 60 05/28/18 04:00 97.3 80 14 144/100 (115) 99 05/28/18 04:00 81 05/28/18 04:00 Bi-pap 05/28/18 02:55 81 20 96 Facial 60 05/28/18 01:23 79 26 96 Facial 60 05/28/18 00:00 60 05/28/18 00:00 75 05/28/18 00:00 Bi-pap 05/28/18 00:00 97.5 75 14 137/88 (104) 96 05/27/18 22:42 89 26 95 Facial 60 Intake and Output 05/27/18 05/28/18 19:00 07:00 Intake Total 395 ml 110 ml Output Total 700 ml 150 ml Balance -305 ml -40 ml Intake Free Water 160 ml IV Total 55 ml 110 ml Tube Feeding 180 ml 0 ml Output Urine Total 700 ml 150 ml Height (Feet): 5 Height (Inches): 5.00 Weight (Pounds): 179 General Appearance: confused Respiratory/Chest: rhonchi - bilaterally Abdomen: soft Margot Dutta MD May 28, 2018 21:11
--- NOTE | 2018-05-28 21:30 | NUR ---
NURSE NOTES: Left msg for DR. Acevedo if we can order DuoNeb per Respiratory therapist as pt. has Mucomyst ordered.
--- NOTE | 2018-05-28 21:45 | General Progress Note ---
Assessment/Plan Problem List: (1) Schizoaffective disorder ICD Codes: F25.9 - Schizoaffective disorder, unspecified SNOMED: 44371573 Assessment/Plan cont prozac 20mg po qam cont zyprexa 10mg po qhs provided ro/st Subjective Neurologic/Psychiatric: Reports: anxiety, depressed Allergies: Coded Allergies: No Known Allergies (Unverified , 05/22/18) Subjective the pt is calm abg still abnormal Objective Last 24 Hour Vital Signs Date Time Temp Pulse Resp B/P (MAP) Pulse Ox O2 Delivery O2 Flow Rate FiO2 05/28/18 16:14 Venturi Mask 05/28/18 16:00 15.0 05/28/18 16:00 98.2 101 30 137/82 (100) 92 05/28/18 16:00 105 05/28/18 13:10 Venturi Mask 05/28/18 13:10 Venturi Mask 05/28/18 12:09 15.0 05/28/18 12:00 97.7 94 26 137/71 (93) 95 05/28/18 12:00 94 05/28/18 12:00 Venturi Mask 05/28/18 08:08 Bi-pap 05/28/18 08:00 60 05/28/18 08:00 75 05/28/18 08:00 97.2 85 30 129/92 (104) 94 05/28/18 07:35 80 21 97 05/28/18 07:35 Venturi Mask 05/28/18 07:35 Venturi Mask 05/28/18 05:10 83 22 95 Facial 60 05/28/18 04:00 60 05/28/18 04:00 97.3 80 14 144/100 (115) 99 05/28/18 04:00 81 05/28/18 04:00 Bi-pap 05/28/18 02:55 81 20 96 Facial 60 05/28/18 01:23 79 26 96 Facial 60 05/28/18 00:00 60 05/28/18 00:00 75 05/28/18 00:00 Bi-pap 05/28/18 00:00 97.5 75 14 137/88 (104) 96 05/27/18 22:42 89 26 95 Facial 60 Intake and Output 05/27/18 05/28/18 19:00 07:00 Intake Total 395 ml 110 ml Output Total 700 ml 150 ml Balance -305 ml -40 ml Intake Free Water 160 ml IV Total 55 ml 110 ml Tube Feeding 180 ml 0 ml Output Urine Total 700 ml 150 ml Height (Feet): 5 Height (Inches): 5.00 Weight (Pounds): 179 General Appearance: WD/WN, alert, overweight Neurologic: oriented x 3, responsive, depressed affect Reagan Marshall MD May 28, 2018 21:45
--- NOTE | 2018-05-28 21:58 | NUR ---
NURSE NOTES: called DR. Mccullough to see if DUONEB can be ordered for pt. - per Respiratory therapist as pt. has Mucomyst- per DR. Mccullough okay to order DuoNeb PO PRN Q4hrs- orders carried out- and Respiratory Therapist aware.
--- NOTE | 2018-05-28 22:14 | NUR ---
NURSE NOTES: DR. Acevedo called back- notified him that DR. Mccullough gave orders for DuoNeb.
[2018-05-28] MEDS: Albuterol/Ipratropium 3ml neb HHN PRN (22:52)
[2018-05-29] VITALS: BP 135/92
[2018-05-29 04:00] VITALS: BP 151/84
--- NOTE | 2018-05-29 07:13 | NUR ---
HAND-OFF: Report given to Fawn Ledbetter RN, pt. stable and no signs of distres noted.
[2018-05-29 08:00] VITALS: BP 144/91
--- NOTE | 2018-05-29 08:15 | NUR ---
NURSE NOTES: received pt in the bed, confused, pt on Bipap at night, now pt on venturi mask 55%, o2 sat 95%, NGT in place, tolerate feeding well, skin warm and dry to touch, intact, suctioned, bed in low position, HOB elevated.
[2018-05-29] MEDS: Albuterol/Ipratropium 3ml neb HHN PRN (08:26)
--- NOTE | 2018-05-29 09:46 | NUR ---
SWALLOW/SPEECH THERAPY NOTE: SEE SWALLOW EVAL COMPLETED POST CHART REVIEW REFERRED BY DR ECHEVERRIA AND HE IS PRIMARY MD DYSPHAGIA RISK FOR THIS 67 Y.O.F.: ACUTE AMS, TOXIC-MET ENCEPHALOPATHY AND DELUSIONAL (PER MD), S/P FALL, HYPOXIA, DYSPNEA, RESP DISTRESS, R/O PNA (05/26/18 HAD R LL ATELECTASIS AND CONSOLIDATION CORRELATES FOR SX OF PNA, 05/27/18 BIBASILAR ATELEC, ELEV R HEMIDIAPHRAGM), BENZODIAZEPINE DEP AND POSSIBLE S/E (FOR ANXIETY) CT HEAD SCAN NEG ACUTE HAS MILD BRAIN ATROPHY EEG: ABNORMAL (SEE REPORT) RELEVANT MEDS ALBUTEROL, ZYPREXA,LORAZEPAM, OMEPRAZOLE) H/O GERD (ON OMEPRAZOLE 20 MG), COPD, PSYCH (SCHIZO AFFECTIVE, DEPRESSION, ANXIETY), HTN, SMOKING, HYPOTHYROIDISM. PER AD OK TO HAVE TF IF NEEDS. PRIOR TO NEED FOR BIPAP, WAS ASKING FOR FOOD. COG-COM FOLLOWED ONE ORAL COMMAND AND SAID NO IN DYSPHONIC VOICE IN RESP TO A QUESTION IF SHE WAS IN PAIN. ON VENTURI MASK 02 FLOW RATE 14 Fi02 55 RR 24 HIGH BP 144/91 (108) AT TIMES INITIAL IMPRESSIONS: SIGNIFICANT DYSPHAGIA CHARACTERIZED BY NEED TO HAVE MILD-MOD ORAL SECRETIONS SUCTIONED OUT OF THE BACK OF HER THROAT. HIGH RISK FOR INADEQUATE INTAKE BY MOUTH (ALERT BUT CONFUSED AND VARIABLY FOLLOWING COMMANDS) NEEDED ORAL CARE (SINCE ON BIPAP) HAD MILD/MOD AMOUNTS OF DRIED PHLEGM BACK OF THROAT. 2 TEETH ON BOTTOM RIGHT LOWER AND REMOVED PARTIAL UPPER DENTURES (MIN TEETH ON UPPER). ABLE TO MOVE TONGUE ONLY FORWARD TO HER LOWER LIP BUT DID NOT ELEVATE NOR LATERALIZE - HIGH RISK FOR ASPIRATION QUESTIONABLE RISK FOR SILENT ASPIRATION (HAS MILD BRAIN ATROPHY) RECOMMENDATIONS: CONTINUE WITH NO PO AT THIS TIME, CONTINUE WITH NONORAL NGT FEEDINGS PER RD. CONTINUE WITH AGGRESSIVE ORAL CARE (KEEP OUT DENTURES) AND BRUSH HER TEETH AND TONGUE (POSTED SIGN) MONITOR FOR MODIFIED BARIUM SWALLOW STUDY READINESS TO ASSESS SWALLOW, DETERMINE ASPIRATION RISK/ETIOLOGY, AND ATTEMPT TRIAL TX TECH CONTINUE WITH DYPHAGIA MANAGEMENT/TX COG-COM EVAL/TX D/W RT (GO), CLINICAL DIETICIAN (COREY), RN (SANCHO) AND COMMUNICATED TO DR ECHEVERRIA
[2018-05-29] MEDS: Solu-MEDROL 125mg Inj IVP SCH (09:48)
[2018-05-29] MEDS: Cefepime HCl 1 GM in D5W 55 ML IVPB SCH (09:49)
[2018-05-29] MEDS: Heparin 5000 units/ml inj SUBQ SCH ×2 (09:50→20:30)
--- NOTE | 2018-05-29 10:48 | Infectious Diseases Prog Note ---
Assessment/Plan Assessment/Plan A; Chronic obstructive pulmonary disease exacerbation, leukocytosis; schizoaffective disorder, hypothyroidism, hyperlipidemia, hypertension. Positive blood culture with CoANS P: Continue Cefepime until Expiration date Start on Zithromax Repeat CXR Subjective ROS Limited/Unobtainable: Yes Neurologic: Reports: other - more alert Allergies: Coded Allergies: No Known Allergies (Unverified , 05/22/18) Objective Vital Signs Last 24 Hour Vital Signs Date Time Temp Pulse Resp B/P (MAP) Pulse Ox O2 Delivery O2 Flow Rate FiO2 05/29/18 08:00 101 05/29/18 08:00 99.3 101 24 144/91 (108) 95 05/29/18 08:00 Venturi Mask 05/29/18 07:05 98 22 94 Venturi Mask 14.0 55 05/29/18 06:45 104 20 94 Venturi Mask 14.0 55 05/29/18 06:45 104 20 94 Venturi Mask 14.0 55 05/29/18 04:51 99 30 98 Facial 55 05/29/18 04:30 55 05/29/18 04:00 90 05/29/18 04:00 97.7 93 24 151/84 (106) 98 05/29/18 04:00 Venturi Mask 05/29/18 04:00 60 05/29/18 03:14 96 38 98 Facial 60 05/29/18 01:15 104 30 97 Facial 60 05/29/18 00:00 60 05/29/18 00:00 107 05/29/18 00:00 97.7 103 28 135/92 (106) 97 05/29/18 00:00 Venturi Mask 05/28/18 23:03 102 18 98 Bi-pap 60 05/28/18 22:49 102 22 97 Bi-pap 60 05/28/18 22:49 60 05/28/18 22:46 101 26 97 Facial 60 05/28/18 22:45 101 22 Bi-pap 60 05/28/18 22:44 103 24 93 Venturi Mask 55 05/28/18 22:42 100 28 93 Venturi Mask 14.0 55 05/28/18 22:00 60 05/28/18 20:00 15.0 05/28/18 20:00 98.0 100 26 134/86 (102) 94 05/28/18 20:00 99 05/28/18 20:00 Venturi Mask 05/28/18 16:14 Venturi Mask 05/28/18 16:00 15.0 05/28/18 16:00 98.2 101 30 137/82 (100) 92 05/28/18 16:00 105 05/28/18 13:10 Venturi Mask 05/28/18 13:10 Venturi Mask 05/28/18 12:09 15.0 05/28/18 12:00 97.7 94 26 137/71 (93) 95 05/28/18 12:00 94 05/28/18 12:00 Venturi Mask Height (Feet): 5 Height (Inches): 5.00 Weight (Pounds): 179 HEENT: mucous membranes moist Respiratory/Chest: decreased breath sounds, rhonchi - bilaterally Cardiovascular: tachycardia Abdomen: soft, non tender, other - NG tube feeding Extremities: no edema Neurologic/Psychiatric: disoriented, other - on restraint Laboratory Tests Test 05/29/18 10:20 Arterial Blood pH 7.389 (7.350-7.450) Arterial Blood Partial Pressure CO2 63.8 mmHg (35.0-45.0) *H Arterial Blood Partial Pressure O2 74.2 mmHg (75.0-100.0) L Arterial Blood HCO3 37.7 mmol/L (22.0-26.0) H Arterial Blood Oxygen Saturation 94.6 % (95-100) L Arterial Blood Base Excess 9.0 (-2-2) H Rahul Test Positive Current Medications Medications (Trade) Dose Ordered Sig/Salty Route PRN Reason Start Time Stop Time Status Last Admin Dose Admin Acetaminophen (Tylenol) 500 mg Q4H PRN NG Mild Pain/Temp > 100.5 05/27/18 13:09 06/22/18 13:08 Acetylcysteine (Mucomyst) 100 mg TIDRT HHN 05/25/18 13:00 06/24/18 12:59 05/29/18 08:26 Albuterol/ Ipratropium (Albuterol/ Ipratropium) 3 ml Q4H PRN HHN Shortness of Breath 05/28/18 22:00 06/02/18 21:59 05/29/18 08:26 Cefepime HCl 1 gm/ Dextrose 55 ml @ 110 mls/hr EVERY 12 HOURS IVPB 05/22/18 21:00 05/29/18 20:59 05/29/18 09:49 Fluoxetine HCl (PROzac) 20 mg DAILY NG 05/28/18 09:00 06/22/18 11:44 05/29/18 09:48 Furosemide (Lasix) 40 mg DAILY IV 05/23/18 09:00 06/22/18 08:59 05/29/18 09:48 Heparin Sodium (Porcine) (Heparin 5000 units/ml) 5,000 units EVERY 12 HOURS SUBQ 05/22/18 21:00 06/21/18 20:59 05/29/18 09:50 Methylprednisolone Sodium Succinate (Solu-MEDROL) 60 mg DAILY IVP 05/24/18 09:00 06/23/18 08:59 05/29/18 09:48 Olanzapine (ZyPREXA) 10 mg BEDTIME NG 05/27/18 21:00 06/22/18 20:59 05/28/18 20:07 Migel Cohen MD May 29, 2018 10:48
[2018-05-29] MEDS ORDERED: Azithromycin 250mg tab ORAL SCH (11:00)
--- NOTE | 2018-05-29 11:29 | Pulmonology Progress Note ---
Assessment/Plan Problems: (1) COPD exacerbation (2) Hypercapnic respiratory failure, chronic (3) Hypoxia (4) Benzodiazepine dependence (5) Hypercarbia (6) Schizoaffective disorder Assessment/Plan ASSESSMENT: The patient is a 67-year-old female smoker with history of chronic obstructive pulmonary disease, assisted living resident, hypertension, hyperlipidemia, hypothyroidism, presenting after a fall, respiratory distress, likely exacerbation of chronic obstructive pulmonary disease and urinary tract infection. PROBLEM LIST: 1. Acute on chronic hypercapnic respiratory failure. 2. Chronic obstructive pulmonary disease with acute exacerbation. 3. Urinary tract infection ( alpha hemolytic strep) 4. CoNS in blood likely contaminant 5. Leukocytosis secondary to above and steroids 6. Questionable fall. 7. History of psychiatric disorder. 8. Hypertension, hyperlipidemia, hypothyroidism. 9. Mild elevation of D-dimer. TREATMENT PLAN: 1. CXR 2. CT-A ORDERED MANY DAYS AGO, CLARIFIED WITH NURSING MANY TIMES. PATIENT CONSENTED AND DOCTOR SHEILA VERIFIED CONSENT. CT-A NEEDS TO BE DONE STAT TODAY!!!! 3. Low threshold for ICU transfer 4. Optimize pulmonary hygiene/mobilize as tolerated. 5. BiPAP 12/5 qHS and PRN 7. Titrate FiO2 to keep saturations greater than 90%. 8. RTC and PRN DuoNeb. 9. Continue SM 60 IV qDaily (D6) 10. Mucomyst HHN's and CPT QID 11. Monitor for signs of respiratory infection. 12. Continue cefepime (D7) + Azithro (D1) per DI, F/U repeat blood Cx's 13. Duplex neg, D-dim elevated, await CT-A 14. NPO while on BiPAP, once off we will advance diet cautiously with aspiration precautions. 15. Monitor volumes and renal function, continue IV Lasix per Cardiology. 16. DVT prophylaxis with heparin subcutaneous. 17. F/U neuro recs, monitor MS 18. The patient should have outpatient workup including pulmonary function tests Subjective Allergies: Coded Allergies: No Known Allergies (Unverified , 05/22/18) Subjective Tm 99.3 WCT 21 Inc congestions inc WOB and wheezing Azithro added by ID [id number] Objective Last 24 Hour Vital Signs Date Time Temp Pulse Resp B/P (MAP) Pulse Ox O2 Delivery O2 Flow Rate FiO2 05/29/18 08:00 101 05/29/18 08:00 99.3 101 24 144/91 (108) 95 05/29/18 08:00 Venturi Mask 05/29/18 07:05 98 22 94 Venturi Mask 14.0 55 05/29/18 06:45 104 20 94 Venturi Mask 14.0 55 05/29/18 06:45 104 20 94 Venturi Mask 14.0 55 05/29/18 04:51 99 30 98 Facial 55 05/29/18 04:30 55 05/29/18 04:00 90 05/29/18 04:00 97.7 93 24 151/84 (106) 98 05/29/18 04:00 Venturi Mask 05/29/18 04:00 60 05/29/18 03:14 96 38 98 Facial 60 05/29/18 01:15 104 30 97 Facial 60 05/29/18 00:00 60 05/29/18 00:00 107 05/29/18 00:00 97.7 103 28 135/92 (106) 97 05/29/18 00:00 Venturi Mask 05/28/18 23:03 102 18 98 Bi-pap 60 05/28/18 22:49 102 22 97 Bi-pap 60 05/28/18 22:49 60 05/28/18 22:46 101 26 97 Facial 60 05/28/18 22:45 101 22 Bi-pap 60 05/28/18 22:44 103 24 93 Venturi Mask 55 05/28/18 22:42 100 28 93 Venturi Mask 14.0 55 05/28/18 22:00 60 05/28/18 20:00 15.0 05/28/18 20:00 98.0 100 26 134/86 (102) 94 05/28/18 20:00 99 05/28/18 20:00 Venturi Mask 05/28/18 16:14 Venturi Mask 05/28/18 16:00 15.0 05/28/18 16:00 98.2 101 30 137/82 (100) 92 05/28/18 16:00 105 05/28/18 13:10 Venturi Mask 05/28/18 13:10 Venturi Mask 05/28/18 12:09 15.0 05/28/18 12:00 97.7 94 26 137/71 (93) 95 05/28/18 12:00 94 05/28/18 12:00 Venturi Mask Intake and Output 05/28/18 05/29/18 18:59 06:59 Intake Total 750 ml 310 ml Output Total 900 ml 175 ml Balance -150 ml 135 ml Intake Free Water 200 ml 100 ml IV Total 110 ml Tube Feeding 490 ml 100 ml Other 60 ml Output Urine Total 900 ml 175 ml General Appearance: cachetic, other - altered HEENT: normocephalic, atraumatic, anicteric, mucous membranes moist Respiratory/Chest: rhonchi Cardiovascular: normal peripheral pulses, normal rate, regular rhythm Abdomen: normal bowel sounds, soft, non tender, no organomegaly, non distended , no mass Extremities: no cyanosis, no clubbing, no edema Laboratory Tests 05/29/18 10:20: Arterial Blood pH 7.389, Arterial Blood Partial Pressure CO2 63.8*H, Arterial Blood Partial Pressure O2 74.2L, Arterial Blood HCO3 37.7H, Arterial Blood Oxygen Saturation 94.6L, Arterial Blood Base Excess 9.0H, Rahul Test Positive Current Medications Medications (Trade) Dose Ordered Sig/Salty Route PRN Reason Start Time Stop Time Status Last Admin Dose Admin Acetaminophen (Tylenol) 500 mg Q4H PRN NG Mild Pain/Temp > 100.5 05/27/18 13:09 06/22/18 13:08 Acetylcysteine (Mucomyst) 100 mg TIDRT HHN 05/25/18 13:00 06/24/18 12:59 05/29/18 08:26 Albuterol/ Ipratropium (Albuterol/ Ipratropium) 3 ml Q4H PRN HHN Shortness of Breath 05/28/18 22:00 06/02/18 21:59 05/29/18 08:26 Azithromycin (Zithromax) 250 mg DAILY ORAL 05/30/18 09:00 06/06/18 08:59 Azithromycin (Zithromax) 500 mg ONCE ORAL 05/29/18 11:00 05/29/18 12:00 Cefepime HCl 1 gm/ Dextrose 55 ml @ 110 mls/hr EVERY 12 HOURS IVPB 05/22/18 21:00 05/29/18 20:59 05/29/18 09:49 Fluoxetine HCl (PROzac) 20 mg DAILY NG 05/28/18 09:00 06/22/18 11:44 05/29/18 09:48 Furosemide (Lasix) 40 mg DAILY IV 05/23/18 09:00 06/22/18 08:59 05/29/18 09:48 Heparin Sodium (Porcine) (Heparin 5000 units/ml) 5,000 units EVERY 12 HOURS SUBQ 05/22/18 21:00 06/21/18 20:59 05/29/18 09:50 Methylprednisolone Sodium Succinate (Solu-MEDROL) 60 mg DAILY IVP 05/24/18 09:00 06/23/18 08:59 05/29/18 09:48 Olanzapine (ZyPREXA) 10 mg BEDTIME NG 05/27/18 21:00 06/22/18 20:59 05/28/18 20:07 Rory Membreno MD May 29, 2018 11:29
[2018-05-29] MEDS ORDERED: Isovue-370 150ml vial INJ PRN (11:30)
--- NOTE | 2018-05-29 11:37 | Diagnostic Imaging Report ---
EXAM: CT Angiography Chest With Intravenous Contrast CLINICAL HISTORY: pain, R/O PE TECHNIQUE: Axial computed tomographic angiography images of the chest with intravenous contrast using pulmonary embolism protocol. CTDI is 33.76 mGy and DLP is 1006 mGy-cm. One or more of the following dose reduction techniques were used: automated exposure control, adjustment of the mA and/or kV according to patient size, use of iterative reconstruction technique. MIP reconstructed images were created and reviewed. COMPARISON: No relevant prior studies available. FINDINGS: Pulmonary arteries: No pulmonary embolism. Aorta: Mild atherosclerosis. No dissection or other acute syndrome. No aneurysm.. Lungs: Right lower lobe atelectasis and consolidation. Correlate for symptoms of pneumonia. Mild left basilar atelectasis.. Pleural space: Unremarkable. No significant effusion. No pneumothorax. Heart: Coronary atherosclerosis. Bones/joints: No acute fracture. No dislocation. Soft tissues: Patulous esophagus with enteric tube terminating in the gastric antrum.. Lymph nodes: Unremarkable. No enlarged lymph nodes. IMPRESSION: No PE or aortic dissection. RLL atelectasis and consolidation. Correlate for symptoms of pneumonia.
--- NOTE | 2018-05-29 11:43 | NUR ---
NURSE NOTES: ABG done, dr. Membreno aware about result, continue keep pt on venturi mask.
[2018-05-29 12:00] VITALS: BP 154/76
--- NOTE | 2018-05-29 12:12 | General Progress Note ---
Assessment/Plan Problem List: (1) Schizoaffective disorder ICD Codes: F25.9 - Schizoaffective disorder, unspecified SNOMED: 34650845 (2) Acute metabolic encephalopathy ICD Codes: G93.41 - Metabolic encephalopathy SNOMED: 94246464, [id number] Status: deteriorating Assessment/Plan cont prozac 20mg po qam cont zyprexa 15mg po qhs provided ro/st aspiration precaution the pt lacks capacity to sign consent forms dw Dr. Membreno Subjective Allergies: Coded Allergies: No Known Allergies (Unverified , 05/22/18) Subjective the pt is agitated the pt is more confused today the pt is not able to answer any questions the pt has waxing and waning of consciousness the pts head ct is normal Objective Last 24 Hour Vital Signs Date Time Temp Pulse Resp B/P (MAP) Pulse Ox O2 Delivery O2 Flow Rate FiO2 05/29/18 08:00 101 05/29/18 08:00 99.3 101 24 144/91 (108) 95 05/29/18 08:00 Venturi Mask 05/29/18 07:05 98 22 94 Venturi Mask 14.0 55 05/29/18 06:45 104 20 94 Venturi Mask 14.0 55 05/29/18 06:45 104 20 94 Venturi Mask 14.0 55 05/29/18 04:51 99 30 98 Facial 55 05/29/18 04:30 55 05/29/18 04:00 90 05/29/18 04:00 97.7 93 24 151/84 (106) 98 05/29/18 04:00 Venturi Mask 05/29/18 04:00 60 05/29/18 03:14 96 38 98 Facial 60 05/29/18 01:15 104 30 97 Facial 60 05/29/18 00:00 60 05/29/18 00:00 107 05/29/18 00:00 97.7 103 28 135/92 (106) 97 05/29/18 00:00 Venturi Mask 05/28/18 23:03 102 18 98 Bi-pap 60 05/28/18 22:49 102 22 97 Bi-pap 60 05/28/18 22:49 60 05/28/18 22:46 101 26 97 Facial 60 05/28/18 22:45 101 22 Bi-pap 60 05/28/18 22:44 103 24 93 Venturi Mask 55 05/28/18 22:42 100 28 93 Venturi Mask 14.0 55 05/28/18 22:00 60 05/28/18 20:00 15.0 05/28/18 20:00 98.0 100 26 134/86 (102) 94 05/28/18 20:00 99 05/28/18 20:00 Venturi Mask 05/28/18 16:14 Venturi Mask 05/28/18 16:00 15.0 05/28/18 16:00 98.2 101 30 137/82 (100) 92 05/28/18 16:00 105 05/28/18 13:10 Venturi Mask 05/28/18 13:10 Venturi Mask 05/28/18 12:09 15.0 Intake and Output 05/28/18 05/29/18 18:59 06:59 Intake Total 750 ml 310 ml Output Total 900 ml 175 ml Balance -150 ml 135 ml Intake Free Water 200 ml 100 ml IV Total 110 ml Tube Feeding 490 ml 100 ml Other 60 ml Output Urine Total 900 ml 175 ml Laboratory Tests 05/29/18 10:20: Arterial Blood pH 7.389, Arterial Blood Partial Pressure CO2 63.8*H, Arterial Blood Partial Pressure O2 74.2L, Arterial Blood HCO3 37.7H, Arterial Blood Oxygen Saturation 94.6L, Arterial Blood Base Excess 9.0H, Rahul Test Positive 05/29/18 11:15: White Blood Count [Pending], Red Blood Count [Pending], Hemoglobin [Pending], Hematocrit [Pending], Mean Corpuscular Volume [Pending], Mean Corpuscular Hemoglobin [Pending], Mean Corpuscular Hemoglobin Concent [Pending], Red Cell Distribution Width [Pending], Platelet Count [Pending], Mean Platelet Volume [ Pending], Neutrophils (%) (Auto) [Pending], Lymphocytes (%) (Auto) [Pending], Monocytes (%) (Auto) [Pending], Eosinophils (%) (Auto) [Pending], Basophils (%) (Auto) [Pending], Sodium Level [Pending], Potassium Level [Pending], Chloride Level [Pending], Carbon Dioxide Level [Pending], Blood Urea Nitrogen [Pending], Creatinine [Pending], Estimat Glomerular Filtration Rate [Pending], Glucose Level [Pending], Uric Acid [Pending], Calcium Level [Pending], Phosphorus Level [Pending], Magnesium Level [Pending], Total Bilirubin [Pending], Aspartate Amino Transf (AST/SGOT) [Pending], Alanine Aminotransferase (ALT/SGPT) [Pending] , Alkaline Phosphatase [Pending], C-Reactive Protein, Quantitative [Pending], Pro-B-Type Natriuretic Peptide [Pending], Total Protein [Pending], Albumin [ Pending], Globulin [Pending] Height (Feet): 5 Height (Inches): 5.00 Weight (Pounds): 179 General Appearance: alert - waxing and waning of conciousness, moderate distress, agitated Neurologic: disoriented, unresponsive Reagan Marshall MD May 29, 2018 12:11
[2018-05-29 12:15] LABS: ANION GAP 7 mmol/L (5-15); BLOOD UREA NITROGEN 70 mg/dL (7-18); CARBON DIOXIDE 35 MMOL/L (21-32); CHLORIDE 107 MMOL/L (98-107); CREATININE 1.2 MG/DL (0.55-1.30); HEMATOCRIT 60.5 % (37.0-47.0); MEAN CORPUSCULAR VOLUME 96 FL (80-99); PLATELET COUNT 336 K/UL (150-450); POTASSIUM 4.4 MMOL/L (3.5-5.1); RED BLOOD COUNT 6.28 M/UL (4.20-5.40); SODIUM 149 MMOL/L (136-145); WHITE BLOOD COUNT 20.2 K/UL (4.8-10.8)
[2018-05-29 12:22] LABS: HEMOGLOBIN 19.6 G/DL (12.0-16.0)
[2018-05-29 12:24] LABS: ALANINE AMINOTRANSFERASE 27 U/L (12-78); ALBUMIN 3.4 G/DL (3.4-5.0); ALBUMIN/GLOBULIN RATIO 0.6 (1.0-2.7); ALKALINE PHOSPHATASE 107 U/L (46-116); ASPARTATE AMINO TRANSFERASE 17 U/L (15-37); BILIRUBIN,TOTAL 0.4 MG/DL (0.2-1.0); PHOSPHORUS 3.4 MG/DL (2.5-4.9)
[2018-05-29] MEDS: Albuterol/Ipratropium 3ml neb HHN SCH ×2 (12:50→19:27)
--- NOTE | 2018-05-29 13:28 | Nephrology Progress Note ---
Assessment/Plan Problem List: (1) Proteinuria (2) Hypoalbuminemia (3) COPD exacerbation (4) Schizoaffective disorder Assessment admitted with exacerbation COPD and Hypoxia High WBCs : UTI , Pneumonia Proteinuria and HypoAlbuminemia Plan doing poorly MS down multifactorial BIPAP Antibiotics 24 h urine proteins CAN NOT BE COLLECTED UNLESS FOLEY_ WILL DEFER 2D echo Left ventricular ejection fraction grossly estimated to be 65 %. optimize cardiac status Subjective ROS Limited/Unobtainable: No Constitutional: Reports: malaise Objective Objective Last 24 Hour Vital Signs Date Time Temp Pulse Resp B/P (MAP) Pulse Ox O2 Delivery O2 Flow Rate FiO2 05/29/18 12:58 112 22 93 Venturi Mask 14.0 55 05/29/18 12:50 110 19 93 Venturi Mask 14.0 55 05/29/18 12:00 98.4 103 35 154/76 (102) 94 05/29/18 12:00 15.0 05/29/18 12:00 Venturi Mask 05/29/18 12:00 105 05/29/18 08:00 101 05/29/18 08:00 99.3 101 24 144/91 (108) 95 05/29/18 08:00 Venturi Mask 05/29/18 07:05 98 22 94 Venturi Mask 14.0 55 05/29/18 06:45 104 20 94 Venturi Mask 14.0 55 05/29/18 06:45 104 20 94 Venturi Mask 14.0 55 05/29/18 04:51 99 30 98 Facial 55 05/29/18 04:30 55 05/29/18 04:00 90 05/29/18 04:00 97.7 93 24 151/84 (106) 98 05/29/18 04:00 Venturi Mask 05/29/18 04:00 60 05/29/18 03:14 96 38 98 Facial 60 05/29/18 01:15 104 30 97 Facial 60 05/29/18 00:00 60 05/29/18 00:00 107 05/29/18 00:00 97.7 103 28 135/92 (106) 97 05/29/18 00:00 Venturi Mask 05/28/18 23:03 102 18 98 Bi-pap 60 05/28/18 22:49 102 22 97 Bi-pap 60 05/28/18 22:49 60 05/28/18 22:46 101 26 97 Facial 60 05/28/18 22:45 101 22 Bi-pap 60 05/28/18 22:44 103 24 93 Venturi Mask 55 05/28/18 22:42 100 28 93 Venturi Mask 14.0 55 05/28/18 22:00 60 05/28/18 20:00 15.0 05/28/18 20:00 98.0 100 26 134/86 (102) 94 05/28/18 20:00 99 05/28/18 20:00 Venturi Mask 05/28/18 16:14 Venturi Mask 05/28/18 16:00 15.0 05/28/18 16:00 98.2 101 30 137/82 (100) 92 05/28/18 16:00 105 Intake and Output 05/28/18 05/29/18 18:59 06:59 Intake Total 750 ml 310 ml Output Total 900 ml 175 ml Balance -150 ml 135 ml Intake Free Water 200 ml 100 ml IV Total 110 ml Tube Feeding 490 ml 100 ml Other 60 ml Output Urine Total 900 ml 175 ml Laboratory Tests 05/29/18 10:20: Arterial Blood pH 7.389, Arterial Blood Partial Pressure CO2 63.8*H, Arterial Blood Partial Pressure O2 74.2L, Arterial Blood HCO3 37.7H, Arterial Blood Oxygen Saturation 94.6L, Arterial Blood Base Excess 9.0H, Rahul Test Positive 05/29/18 11:15: White Blood Count 20.2H, Red Blood Count 6.28H, Hemoglobin 19.6*H, Hematocrit 60.5H, Mean Corpuscular Volume 96, Mean Corpuscular Hemoglobin 31.1H, Mean Corpuscular Hemoglobin Concent 32.3, Red Cell Distribution Width 12.0, Platelet Count 336, Mean Platelet Volume 6.2L, Neutrophils (%) (Auto) , Lymphocytes (%) ( Auto) , Monocytes (%) (Auto) , Eosinophils (%) (Auto) , Basophils (%) (Auto) , Neutrophils % (Manual) [Pending], Lymphocytes % (Manual) [Pending], Platelet Estimate [Pending], Platelet Morphology [Pending], Sodium Level 149H, Potassium Level 4.4, Chloride Level 107, Carbon Dioxide Level 35H, Anion Gap 7, Blood Urea Nitrogen 70H, Creatinine 1.2, Estimat Glomerular Filtration Rate 44.8, Glucose Level 172H, Uric Acid 11.7H, Calcium Level 10.0, Phosphorus Level 3.4, Magnesium Level 2.5H, Total Bilirubin 0.4, Aspartate Amino Transf (AST/SGOT) 17 , Alanine Aminotransferase (ALT/SGPT) 27, Alkaline Phosphatase 107, C-Reactive Protein, Quantitative 3.3H, Pro-B-Type Natriuretic Peptide 113, Total Protein 8.7H, Albumin 3.4, Globulin 5.3, Albumin/Globulin Ratio 0.6L Height (Feet): 5 Height (Inches): 5.00 Weight (Pounds): 179 General Appearance: mild distress Cardiovascular: tachycardia Respiratory/Chest: decreased breath sounds Abdomen: distended Objective no change Seamus Morfin MD May 29, 2018 13:28
--- NOTE | 2018-05-29 14:13 | Cardiac Electrophysiology PN ---
Assessment/Plan Assessment/Plan 1. Acute shortness of breath due to COPD. On and off on BIPAP and Abx per Dr. Membreno Ruled out for IA. EF 65%. On Lasix 40 iv daily. May need Tracheostomy. No Significant CHF 2. Elevated white count, likely pneumonia, on BiPAP. Antibiotic per Dr. Cohen. 3. History of psychosis. 4. Sinus tach due to PNA. No fib DW RN, Dr Dutta and Temi Subjective Subjective On Face Mask in restraints. RN at bedside.BP at times high Objective Last 24 Hour Vital Signs Date Time Temp Pulse Resp B/P (MAP) Pulse Ox O2 Delivery O2 Flow Rate FiO2 05/29/18 12:58 112 22 93 Venturi Mask 14.0 55 05/29/18 12:50 110 19 93 Venturi Mask 14.0 55 05/29/18 12:00 98.4 103 35 154/76 (102) 94 05/29/18 12:00 15.0 05/29/18 12:00 Venturi Mask 05/29/18 12:00 105 05/29/18 08:00 101 05/29/18 08:00 99.3 101 24 144/91 (108) 95 05/29/18 08:00 Venturi Mask 05/29/18 07:05 98 22 94 Venturi Mask 14.0 55 05/29/18 06:45 104 20 94 Venturi Mask 14.0 55 05/29/18 06:45 104 20 94 Venturi Mask 14.0 55 05/29/18 04:51 99 30 98 Facial 55 05/29/18 04:30 55 05/29/18 04:00 90 05/29/18 04:00 97.7 93 24 151/84 (106) 98 05/29/18 04:00 Venturi Mask 05/29/18 04:00 60 05/29/18 03:14 96 38 98 Facial 60 05/29/18 01:15 104 30 97 Facial 60 05/29/18 00:00 60 05/29/18 00:00 107 05/29/18 00:00 97.7 103 28 135/92 (106) 97 05/29/18 00:00 Venturi Mask 05/28/18 23:03 102 18 98 Bi-pap 60 05/28/18 22:49 102 22 97 Bi-pap 60 05/28/18 22:49 60 05/28/18 22:46 101 26 97 Facial 60 05/28/18 22:45 101 22 Bi-pap 60 05/28/18 22:44 103 24 93 Venturi Mask 55 05/28/18 22:42 100 28 93 Venturi Mask 14.0 55 05/28/18 22:00 60 05/28/18 20:00 15.0 05/28/18 20:00 98.0 100 26 134/86 (102) 94 05/28/18 20:00 99 05/28/18 20:00 Venturi Mask 05/28/18 16:14 Venturi Mask 05/28/18 16:00 15.0 05/28/18 16:00 98.2 101 30 137/82 (100) 92 05/28/18 16:00 105 Intake and Output 05/28/18 05/29/18 18:59 06:59 Intake Total 750 ml 310 ml Output Total 900 ml 175 ml Balance -150 ml 135 ml Intake Free Water 200 ml 100 ml IV Total 110 ml Tube Feeding 490 ml 100 ml Other 60 ml Output Urine Total 900 ml 175 ml Laboratory Tests Test 05/29/18 10:20 05/29/18 11:15 Arterial Blood pH 7.389 (7.350-7.450) Arterial Blood Partial Pressure CO2 63.8 mmHg (35.0-45.0) *H Arterial Blood Partial Pressure O2 74.2 mmHg (75.0-100.0) L Arterial Blood HCO3 37.7 mmol/L (22.0-26.0) H Arterial Blood Oxygen Saturation 94.6 % (95-100) L Arterial Blood Base Excess 9.0 (-2-2) H Rahul Test Positive White Blood Count 20.2 K/UL (4.8-10.8) H Red Blood Count 6.28 M/UL (4.20-5.40) H Hemoglobin 19.6 G/DL (12.0-16.0) *H Hematocrit 60.5 % (37.0-47.0) H Mean Corpuscular Volume 96 FL (80-99) Mean Corpuscular Hemoglobin 31.1 PG (27.0-31.0) H Mean Corpuscular Hemoglobin Concent 32.3 G/DL (32.0-36.0) Red Cell Distribution Width 12.0 % (11.6-14.8) Platelet Count 336 K/UL (150-450) Mean Platelet Volume 6.2 FL (6.5-10.1) L Neutrophils (%) (Auto) % (45.0-75.0) Lymphocytes (%) (Auto) % (20.0-45.0) Monocytes (%) (Auto) % (1.0-10.0) Eosinophils (%) (Auto) % (0.0-3.0) Basophils (%) (Auto) % (0.0-2.0) Differential Total Cells Counted 100 Neutrophils % (Manual) 89 % (45-75) H Lymphocytes % (Manual) 6 % (20-45) L Monocytes % (Manual) 5 % (1-10) Eosinophils % (Manual) 0 % (0-3) Basophils % (Manual) 0 % (0-2) Band Neutrophils 0 % (0-8) Platelet Estimate Adequate Platelet Morphology Normal Sodium Level 149 MMOL/L (136-145) H Potassium Level 4.4 MMOL/L (3.5-5.1) Chloride Level 107 MMOL/L (98-107) Carbon Dioxide Level 35 MMOL/L (21-32) H Anion Gap 7 mmol/L (5-15) Blood Urea Nitrogen 70 mg/dL (7-18) H Creatinine 1.2 MG/DL (0.55-1.30) Estimat Glomerular Filtration Rate 44.8 mL/min (>60) Glucose Level 172 MG/DL (74-106) H Uric Acid 11.7 MG/DL (2.6-7.2) H Calcium Level 10.0 MG/DL (8.5-10.1) Phosphorus Level 3.4 MG/DL (2.5-4.9) Magnesium Level 2.5 MG/DL (1.8-2.4) H Total Bilirubin 0.4 MG/DL (0.2-1.0) Aspartate Amino Transf (AST/SGOT) 17 U/L (15-37) Alanine Aminotransferase (ALT/SGPT) 27 U/L (12-78) Alkaline Phosphatase 107 U/L (46-116) C-Reactive Protein, Quantitative 3.3 mg/dL (0.00-0.90) H Pro-B-Type Natriuretic Peptide 113 pg/mL (0-125) Total Protein 8.7 G/DL (6.4-8.2) H Albumin 3.4 G/DL (3.4-5.0) Globulin 5.3 g/dL Albumin/Globulin Ratio 0.6 (1.0-2.7) L Objective HEAD AND NECK: No JVD.Face Mask on LUNGS: Coarse rhonchi. CARDIOVASCULAR: Regular S1 and S2 no M/G/R ABDOMEN: Soft. EXTREMITIES: No pitting edema. Zane Ocampo MD May 29, 2018 14:13
[2018-05-29] MEDS: Meropenem 1 GM in NS 55 ML IVPB SCH ×2 (15:13→21:00)
[2018-05-29 16:00] VITALS: BP 135/85
--- NOTE | 2018-05-29 17:23 | Diagnostic Imaging Report ---
Indication: Dyspnea Technique: One view of the chest Comparison: 05/27/2018 Findings: Lungs and pleural spaces remain clear. Nasogastric tube remains in good position. No significant change Impression: No acute process
--- NOTE | 2018-05-29 18:09 | General Progress Note ---
Assessment/Plan Assessment/Plan (1) S/p fall (2) COPD Exacerbation (3) OA Patient to be continued on Tylenol D/w Dr. Garcia and he concurred. Subjective Date patient seen: May 29, 2018 Time patient seen: 05:15 - pm ROS Limited/Unobtainable: Yes Allergies: Coded Allergies: No Known Allergies (Unverified , 05/22/18) Subjective Patient is in bed is showing no signs of pain. Objective Last 24 Hour Vital Signs Date Time Temp Pulse Resp B/P (MAP) Pulse Ox O2 Delivery O2 Flow Rate FiO2 05/29/18 16:00 118 05/29/18 16:00 99.5 101 29 135/85 (102) 91 05/29/18 16:00 Venturi Mask 05/29/18 16:00 15.0 05/29/18 12:58 112 22 93 Venturi Mask 14.0 55 05/29/18 12:50 110 19 93 Venturi Mask 14.0 55 05/29/18 12:00 98.4 103 35 154/76 (102) 94 05/29/18 12:00 15.0 05/29/18 12:00 Venturi Mask 05/29/18 12:00 105 05/29/18 08:00 101 05/29/18 08:00 99.3 101 24 144/91 (108) 95 05/29/18 08:00 Venturi Mask 05/29/18 07:05 98 22 94 Venturi Mask 14.0 55 05/29/18 06:45 104 20 94 Venturi Mask 14.0 55 05/29/18 06:45 104 20 94 Venturi Mask 14.0 55 05/29/18 04:51 99 30 98 Facial 55 05/29/18 04:30 55 05/29/18 04:00 90 05/29/18 04:00 97.7 93 24 151/84 (106) 98 05/29/18 04:00 Venturi Mask 05/29/18 04:00 60 05/29/18 03:14 96 38 98 Facial 60 05/29/18 01:15 104 30 97 Facial 60 05/29/18 00:00 60 05/29/18 00:00 107 05/29/18 00:00 97.7 103 28 135/92 (106) 97 05/29/18 00:00 Venturi Mask 05/28/18 23:03 102 18 98 Bi-pap 60 05/28/18 22:49 102 22 97 Bi-pap 60 05/28/18 22:49 60 05/28/18 22:46 101 26 97 Facial 60 05/28/18 22:45 101 22 Bi-pap 60 05/28/18 22:44 103 24 93 Venturi Mask 55 05/28/18 22:42 100 28 93 Venturi Mask 14.0 55 05/28/18 22:00 60 05/28/18 20:00 15.0 05/28/18 20:00 98.0 100 26 134/86 (102) 94 05/28/18 20:00 99 05/28/18 20:00 Venturi Mask Intake and Output 05/28/18 05/29/18 19:00 07:00 Intake Total 800 ml 410 ml Output Total 900 ml 175 ml Balance -100 ml 235 ml Intake Free Water 200 ml 200 ml IV Total 110 ml Tube Feeding 540 ml 100 ml Other 60 ml Output Urine Total 900 ml 175 ml Laboratory Tests 05/29/18 10:20: Arterial Blood pH 7.389, Arterial Blood Partial Pressure CO2 63.8*H, Arterial Blood Partial Pressure O2 74.2L, Arterial Blood HCO3 37.7H, Arterial Blood Oxygen Saturation 94.6L, Arterial Blood Base Excess 9.0H, Rahul Test Positive 05/29/18 11:15: White Blood Count 20.2H, Red Blood Count 6.28H, Hemoglobin 19.6*H, Hematocrit 60.5H, Mean Corpuscular Volume 96, Mean Corpuscular Hemoglobin 31.1H, Mean Corpuscular Hemoglobin Concent 32.3, Red Cell Distribution Width 12.0, Platelet Count 336, Mean Platelet Volume 6.2L, Neutrophils (%) (Auto) , Lymphocytes (%) ( Auto) , Monocytes (%) (Auto) , Eosinophils (%) (Auto) , Basophils (%) (Auto) , Differential Total Cells Counted 100, Neutrophils % (Manual) 89H, Lymphocytes % (Manual) 6L, Monocytes % (Manual) 5, Eosinophils % (Manual) 0, Basophils % ( Manual) 0, Band Neutrophils 0, Platelet Estimate Adequate, Platelet Morphology Normal, Sodium Level 149H, Potassium Level 4.4, Chloride Level 107, Carbon Dioxide Level 35H, Anion Gap 7, Blood Urea Nitrogen 70H, Creatinine 1.2, Estimat Glomerular Filtration Rate 44.8, Glucose Level 172H, Uric Acid 11.7H, Calcium Level 10.0, Phosphorus Level 3.4, Magnesium Level 2.5H, Total Bilirubin 0.4, Aspartate Amino Transf (AST/SGOT) 17, Alanine Aminotransferase (ALT/SGPT) 27, Alkaline Phosphatase 107, C-Reactive Protein, Quantitative 3.3H, Pro-B-Type Natriuretic Peptide 113, Total Protein 8.7H, Albumin 3.4, Globulin 5.3, Albumin/ Globulin Ratio 0.6L Height (Feet): 5 Height (Inches): 5.00 Weight (Pounds): 179 General Appearance: no apparent distress EENT: PERRL/EOMI Neck: non-tender, normal alignment Cardiovascular: normal rate, regular rhythm Respiratory/Chest: decreased breath sounds Abdomen: non tender, soft Extremities: non-tender Edema: trace edema Neurologic: alert Skin: warm/dry Objective General Appearance: alert EENT: PERRL/EOMI Neck: non-tender, supple Cardiovascular: normal rate, regular rhythm Respiratory/Chest: decreased breath sounds Abdomen: non tender, soft Extremities: non-tender Edema: trace edema Neurologic: alert, oriented x 3 Skin: warm/dry Anjum Dumont May 29, 2018 18:09
--- NOTE | 2018-05-29 18:21 | Neurology Progress Note ---
Interim History Interim History Interim History Ms. Whitfield has had a significant decline in function. She is much more encephalopathic. She is non verbal today. She does follow commands but inconsistently. She is on an O2 mask now. She is unable to cooperate for a thorough neurological exam. She is unable to make her feelings known. Review of Systems Neuro Review of Systems Unable to obtain. Objective Physical Exam Last Vital Signs Date Time Temp Pulse Resp B/P (MAP) Pulse Ox O2 Delivery O2 Flow Rate FiO2 05/29/18 16:00 118 05/29/18 16:00 99.5 29 135/85 (102) 91 05/29/18 16:00 Venturi Mask 05/29/18 16:00 15.0 05/29/18 12:58 55 Laboratory Tests Test 05/29/18 10:20 05/29/18 11:15 Arterial Blood pH 7.389 (7.350-7.450) Arterial Blood Partial Pressure CO2 63.8 mmHg (35.0-45.0) *H Arterial Blood Partial Pressure O2 74.2 mmHg (75.0-100.0) L Arterial Blood HCO3 37.7 mmol/L (22.0-26.0) H Arterial Blood Oxygen Saturation 94.6 % (95-100) L Arterial Blood Base Excess 9.0 (-2-2) H Rahul Test Positive White Blood Count 20.2 K/UL (4.8-10.8) H Red Blood Count 6.28 M/UL (4.20-5.40) H Hemoglobin 19.6 G/DL (12.0-16.0) *H Hematocrit 60.5 % (37.0-47.0) H Mean Corpuscular Volume 96 FL (80-99) Mean Corpuscular Hemoglobin 31.1 PG (27.0-31.0) H Mean Corpuscular Hemoglobin Concent 32.3 G/DL (32.0-36.0) Red Cell Distribution Width 12.0 % (11.6-14.8) Platelet Count 336 K/UL (150-450) Mean Platelet Volume 6.2 FL (6.5-10.1) L Neutrophils (%) (Auto) % (45.0-75.0) Lymphocytes (%) (Auto) % (20.0-45.0) Monocytes (%) (Auto) % (1.0-10.0) Eosinophils (%) (Auto) % (0.0-3.0) Basophils (%) (Auto) % (0.0-2.0) Differential Total Cells Counted 100 Neutrophils % (Manual) 89 % (45-75) H Lymphocytes % (Manual) 6 % (20-45) L Monocytes % (Manual) 5 % (1-10) Eosinophils % (Manual) 0 % (0-3) Basophils % (Manual) 0 % (0-2) Band Neutrophils 0 % (0-8) Platelet Estimate Adequate Platelet Morphology Normal Sodium Level 149 MMOL/L (136-145) H Potassium Level 4.4 MMOL/L (3.5-5.1) Chloride Level 107 MMOL/L (98-107) Carbon Dioxide Level 35 MMOL/L (21-32) H Anion Gap 7 mmol/L (5-15) Blood Urea Nitrogen 70 mg/dL (7-18) H Creatinine 1.2 MG/DL (0.55-1.30) Estimat Glomerular Filtration Rate 44.8 mL/min (>60) Glucose Level 172 MG/DL (74-106) H Uric Acid 11.7 MG/DL (2.6-7.2) H Calcium Level 10.0 MG/DL (8.5-10.1) Phosphorus Level 3.4 MG/DL (2.5-4.9) Magnesium Level 2.5 MG/DL (1.8-2.4) H Total Bilirubin 0.4 MG/DL (0.2-1.0) Aspartate Amino Transf (AST/SGOT) 17 U/L (15-37) Alanine Aminotransferase (ALT/SGPT) 27 U/L (12-78) Alkaline Phosphatase 107 U/L (46-116) C-Reactive Protein, Quantitative 3.3 mg/dL (0.00-0.90) H Pro-B-Type Natriuretic Peptide 113 pg/mL (0-125) Total Protein 8.7 G/DL (6.4-8.2) H Albumin 3.4 G/DL (3.4-5.0) Globulin 5.3 g/dL Albumin/Globulin Ratio 0.6 (1.0-2.7) L Neurologic Exam Objective PHYSICAL EXAMINATION: GENERAL: She is a well-developed, well-nourished, lady, lying in bed , unable to communicate. HEAD: Normocephalic and atraumatic. EENT: Examination benign NECK: No neck rigidity was observed. NEUROLOGICAL EXAMINATION: MENTAL STATUS EXAMINATION: She was awake but not alert. She was aphasic and mute and unable to cooperate for further mental status tests. SPEECH: She only mumbled and could not cooperate for speech testing.. LANGUAGE: She had problems with comprehension, repetition, naming and expression of language. She did follow a few simple commands inconsistently. CRANIAL NERVE EXAMINATION: II: The visual beltran were intact to threat. III, IV & : The external ocular movements were present on OCM, and the pupils 3 mm in diameter, equal, round, regular, and reactive to light. V-VII: The corneal reflexes were symmetric. She had normal facial expressions and no facial asymmetry. VIII: She was able to hear and had no nystagmus. IX: The palate moved symmetrically on phonation. X: She had no hoarseness of voice. XI: The sternocleidomastoids and trapezii functioned. XII: The tongue was in the midline without any fasciculations or atrophy. MOTOR SYSTEM: The tone was increased in all four extremities with gegenhalten. Examination of muscle mass revealed no focal wasting. Examination of power was impossible to test. She did move all 4 extremities on command and gave me excellent hand enrichment assistant. SENSORY EXAMINATION: She had intact sensations to deep pain but did not cooperate for further sensory testing. COORDINATION: Could not be tested. REFLEXES: Trace+ and bilaterally symmetrical at the biceps, triceps, brachioradialis, and knees, 0 at both ankles. The plantar responses were flexor bilaterally. STANCE: Could not be tested. GAIT: Could not be tested. Impression/Recommendations Diagnostic Impression 1. Ms Leigh Ann Whitfield is a 67-year-old, right-handed, lady, who does have a past history of hypertension, dyslipidemia, chronic obstructive pulmonary disease, hypothyroidism, schizoaffective disorder, and recent falls, who was hospitalized on 05/22/2018 for an altered mental state and a fall at her board and half-way. She was found to be hypoxic, hypercapnic, and had a significant leukocytosis. Since she has been in the hospital, she has improved. 2. She has had a significant decline in function. She is much more encephalopathic. She is non verbal today. She does follow commands but inconsistently. She is on an O2 mask now. She is unable to cooperate for a thorough neurological exam. She is unable to make her feelings known. 3. On neurological examination, at this time, she aphasic and mute. She can only follow a few simple commands inconsistently. She however does not demonstrate any focal or lateralizing findings. She has globally diminished deep tendon reflexes. 4. Laboratory data on my initial evaluation revealed that she had a significant leukocytosis with a WBC count of 19,700. Her chemistry panel reveals that her uric acid level was elevated at 8.2, magnesium was low at 1.6. ProBNP that was elevated at 186, albumin was low at 2.5. Her B12 level was normal at 924. Her folate level was normal at 40.6. Her TSH was normal at 1.92 with a free T4 of 1.13. The Hemoglobin A1c was at 6%. Latest arterial blood gas revealed a pH at 7.37, pCO2 at 62, and pO2 at 56. Her urinalysis revealed 1+ leukocyte esterase, 0-2 red blood cells, and 2-4 white blood cells per high-power field. 5. Further laboratory tests have revealed a minimally elevated ammonia at 34. 6. The last ABG done on 05/29/18 revealed a low pO2 at 74 and an elevated pCO2 at 64. 7. She continues to have a significant leukocytosis with a WBC count of 20,200. Her HB is elevated to 19.6 G, her Na is elevated at 149, her BUN is elevated at 70, and her uric acid is elevated at 11.[address] scan of the brain without contrast revealed atrophy and some deep white matter changes, but no acute pathology. 9. The EGG done on 05/24/18 was normal in the awake and drowsy states. 10. The patient's history, neurological examination, laboratory data, and imaging studies are most compatible with a toxic metabolic encephalopathy related to the hypoxia, hypercapnia, and an infectious process. Her encephalopathy has worsened significantly today. Recommendations 1. Agree with management thus far. 2. Aggressive treatment of the patient's respiratory failure as per Dr. Membreno. 3. Aggressive treatment of the patient's infectious process as per Dr. Cohen. 4. Correction of metabolic imbalances. 5. Observe closely. Fransico Bolton M.D., M.S.P.H. Fransico Bolton MD May 29, 2018 18:21
--- NOTE | 2018-05-29 19:15 | NUR ---
NURSE NOTES: Received report from Haylee RN, pt. in bed awake, alert to name- no signs or symptoms of acute cardiac or respiratory distress noted, cardiac monitoring on, comfort measures provided, bed in lowest position and call light within easy reach, bed alarm on, side rails up x's3- safety brakes engaged, pt. appears to be tolerating current venturi mask settings at 55%l- sating at 98%- no distress noted, pt. has Rt. Nare NGT- Glucerna 1.2 at 55cc/hr- per endorsement- no residual noted. pt. is to be on BIPAP 12/5 Fio2 at 60%- and feeding will be stopped prior to BIPAP 2 hours before, pt. is clean and dry, and appears to be comfortable, Rt. AC 20G iv intact and patent, safety measures continued, will continue with plan of care.
--- NOTE | 2018-05-29 19:23 | NUR ---
HAND-OFF: Report given to LATA CARTER,no change in condition.
[2018-05-29 20:00] VITALS: BP 149/90
[2018-05-29] MEDS: OLANZapine 10mg tab NG SCH (20:42)
--- NOTE | 2018-05-29 21:24 | General Progress Note ---
Assessment/Plan Problem List: (1) Hypoxia ICD Codes: R09.02 - Hypoxemia SNOMED: 504338607 (2) COPD exacerbation ICD Codes: J44.1 - Chronic obstructive pulmonary disease with (acute) exacerbation SNOMED: 037865826 (3) Hypercapnic respiratory failure, chronic ICD Codes: J96.12 - Chronic respiratory failure with hypercapnia SNOMED: 260689747 (4) Hypoxemia ICD Codes: R09.02 - Hypoxemia SNOMED: 104199106 (5) Benzodiazepine dependence ICD Codes: F13.20 - Sedative, hypnotic or anxiolytic dependence, uncomplicated SNOMED: 754139985 (6) Hypoalbuminemia ICD Codes: E88.09 - Other disorders of plasma-protein metabolism, not elsewhere classified SNOMED: 145025387 Status: unchanged Assessment/Plan discussed w pulmongist still confused and lethargic on nonrebreather has secretions continue suction copd exacerbation reivewed chart and labs Subjective Allergies: Coded Allergies: No Known Allergies (Unverified , 05/22/18) Subjective sob Objective Last 24 Hour Vital Signs Date Time Temp Pulse Resp B/P (MAP) Pulse Ox O2 Delivery O2 Flow Rate FiO2 05/29/18 20:00 122 05/29/18 20:00 98.9 113 22 149/90 (109) 94 05/29/18 19:37 115 30 93 Bi-pap 55 05/29/18 19:30 120 35 92 Facial 55 05/29/18 19:27 111 29 93 Venturi Mask 14.0 55 05/29/18 16:00 118 05/29/18 16:00 99.5 101 29 135/85 (102) 91 05/29/18 16:00 Venturi Mask 05/29/18 16:00 15.0 05/29/18 12:58 112 22 93 Venturi Mask 14.0 55 05/29/18 12:50 110 19 93 Venturi Mask 14.0 55 05/29/18 12:00 98.4 103 35 154/76 (102) 94 05/29/18 12:00 15.0 05/29/18 12:00 Venturi Mask 05/29/18 12:00 105 05/29/18 08:00 101 05/29/18 08:00 99.3 101 24 144/91 (108) 95 05/29/18 08:00 Venturi Mask 05/29/18 07:05 98 22 94 Venturi Mask 14.0 55 05/29/18 06:45 104 20 94 Venturi Mask 14.0 55 05/29/18 06:45 104 20 94 Venturi Mask 14.0 55 05/29/18 04:51 99 30 98 Facial 55 05/29/18 04:30 55 05/29/18 04:00 90 05/29/18 04:00 97.7 93 24 151/84 (106) 98 05/29/18 04:00 Venturi Mask 05/29/18 04:00 60 05/29/18 03:14 96 38 98 Facial 60 05/29/18 01:15 104 30 97 Facial 60 05/29/18 00:00 60 05/29/18 00:00 107 05/29/18 00:00 97.7 103 28 135/92 (106) 97 05/29/18 00:00 Venturi Mask 05/28/18 23:03 102 18 98 Bi-pap 60 05/28/18 22:49 102 22 97 Bi-pap 60 05/28/18 22:49 60 05/28/18 22:46 101 26 97 Facial 60 05/28/18 22:45 101 22 Bi-pap 60 05/28/18 22:44 103 24 93 Venturi Mask 55 05/28/18 22:42 100 28 93 Venturi Mask 14.0 55 05/28/18 22:00 60 Intake and Output 05/28/18 05/29/18 19:00 07:00 Intake Total 800 ml 410 ml Output Total 900 ml 175 ml Balance -100 ml 235 ml Intake Free Water 200 ml 200 ml IV Total 110 ml Tube Feeding 540 ml 100 ml Other 60 ml Output Urine Total 900 ml 175 ml Laboratory Tests 05/29/18 10:20: Arterial Blood pH 7.389, Arterial Blood Partial Pressure CO2 63.8*H, Arterial Blood Partial Pressure O2 74.2L, Arterial Blood HCO3 37.7H, Arterial Blood Oxygen Saturation 94.6L, Arterial Blood Base Excess 9.0H, Rahul Test Positive 05/29/18 11:15: White Blood Count 20.2H, Red Blood Count 6.28H, Hemoglobin 19.6*H, Hematocrit 60.5H, Mean Corpuscular Volume 96, Mean Corpuscular Hemoglobin 31.1H, Mean Corpuscular Hemoglobin Concent 32.3, Red Cell Distribution Width 12.0, Platelet Count 336, Mean Platelet Volume 6.2L, Neutrophils (%) (Auto) , Lymphocytes (%) ( Auto) , Monocytes (%) (Auto) , Eosinophils (%) (Auto) , Basophils (%) (Auto) , Differential Total Cells Counted 100, Neutrophils % (Manual) 89H, Lymphocytes % (Manual) 6L, Monocytes % (Manual) 5, Eosinophils % (Manual) 0, Basophils % ( Manual) 0, Band Neutrophils 0, Platelet Estimate Adequate, Platelet Morphology Normal, Sodium Level 149H, Potassium Level 4.4, Chloride Level 107, Carbon Dioxide Level 35H, Anion Gap 7, Blood Urea Nitrogen 70H, Creatinine 1.2, Estimat Glomerular Filtration Rate 44.8, Glucose Level 172H, Uric Acid 11.7H, Calcium Level 10.0, Phosphorus Level 3.4, Magnesium Level 2.5H, Total Bilirubin 0.4, Aspartate Amino Transf (AST/SGOT) 17, Alanine Aminotransferase (ALT/SGPT) 27, Alkaline Phosphatase 107, C-Reactive Protein, Quantitative 3.3H, Pro-B-Type Natriuretic Peptide 113, Total Protein 8.7H, Albumin 3.4, Globulin 5.3, Albumin/ Globulin Ratio 0.6L Height (Feet): 5 Height (Inches): 5.00 Weight (Pounds): 179 General Appearance: confused Respiratory/Chest: rhonchi - bilaterally Abdomen: soft Margot Dutta MD May 29, 2018 21:24
--- NOTE | 2018-05-29 22:24 | General Progress Note ---
Assessment/Plan Assessment/Plan Assessment and Recs: # Leukocytosis - is likely related to infection/pna --> smear has been reviewed and only 1% metamyelocytes noted, not significant finding --> esr and crp elevated --> wbc trend : --> 22--> 21--> 20 --> abx as per Dr. Cohen, currently on cefepime # Elevated d-dimer - r/o dvt of lower ext --> venous duplex negative scan --> likely elevated due to many possible reasons --> CXR 05/27 Elevated right hemidiaphragm. Bibasilar lung atelectasis. # Hypoxemia potentially copd related --> off bipap at this time --> bipap at night as per pulm # Hypercarbia # Benzodiazepine dependence # Psychosis # Sinus tach --> as per Dr. Ocampo The timing of this note does not necessarily reflect the time of the patient was seen. Greatly appreciate consultation! Subjective ROS Limited/Unobtainable: Yes Allergies: Coded Allergies: No Known Allergies (Unverified , 05/22/18) Subjective 05/23: on venturi mask, no new changes, mild fever today, no chills 2: Pt is seen by bedside, awake, comfortable, wbc trending up 2: hgb and wbc trending up, seen in the room, awake, bipap, no fevers or cills , 05/26: no new changes, no fever, no chills, Back on BIPAP 05/29:seen by bedside in restraints. BP is elevated, CXR is reviewed, no acute findings, hgb trending up. Objective Last 24 Hour Vital Signs Date Time Temp Pulse Resp B/P (MAP) Pulse Ox O2 Delivery O2 Flow Rate FiO2 05/29/18 21:14 102 35 92 Facial 55 05/29/18 21:00 55 05/29/18 20:00 15.0 05/29/18 20:00 122 05/29/18 20:00 Venturi Mask 05/29/18 20:00 98.9 113 22 149/90 (109) 94 05/29/18 19:37 115 30 93 Bi-pap 55 05/29/18 19:30 120 35 92 Facial 55 05/29/18 19:27 111 29 93 Venturi Mask 14.0 55 05/29/18 16:00 118 2/11/19 16:00 99.5 101 29 135/85 (102) 91 05/29/18 16:00 Venturi Mask 05/29/18 16:00 15.0 05/29/18 12:58 112 22 93 Venturi Mask 14.0 55 05/29/18 12:50 110 19 93 Venturi Mask 14.0 55 05/29/18 12:00 98.4 103 35 154/76 (102) 94 05/29/18 12:00 15.0 05/29/18 12:00 Venturi Mask 05/29/18 12:00 105 05/29/18 08:00 101 05/29/18 08:00 99.3 101 24 144/91 (108) 95 05/29/18 08:00 Venturi Mask 05/29/18 07:05 98 22 94 Venturi Mask 14.0 55 05/29/18 06:45 104 20 94 Venturi Mask 14.0 55 05/29/18 06:45 104 20 94 Venturi Mask 14.0 55 05/29/18 04:51 99 30 98 Facial 55 05/29/18 04:30 55 05/29/18 04:00 90 05/29/18 04:00 97.7 93 24 151/84 (106) 98 05/29/18 04:00 Venturi Mask 05/29/18 04:00 60 05/29/18 03:14 96 38 98 Facial 60 05/29/18 01:15 104 30 97 Facial 60 05/29/18 00:00 60 05/29/18 00:00 107 05/29/18 00:00 97.7 103 28 135/92 (106) 97 05/29/18 00:00 Venturi Mask 05/28/18 23:03 102 18 98 Bi-pap 60 05/28/18 22:49 102 22 97 Bi-pap 60 05/28/18 22:49 60 05/28/18 22:46 101 26 97 Facial 60 05/28/18 22:45 101 22 Bi-pap 60 05/28/18 22:44 103 24 93 Venturi Mask 55 05/28/18 22:42 100 28 93 Venturi Mask 14.0 55 Intake and Output 05/28/18 05/29/18 19:00 07:00 Intake Total 800 ml 410 ml Output Total 900 ml 175 ml Balance -100 ml 235 ml Intake Free Water 200 ml 200 ml IV Total 110 ml Tube Feeding 540 ml 100 ml Other 60 ml Output Urine Total 900 ml 175 ml Laboratory Tests 05/29/18 10:20: Arterial Blood pH 7.389, Arterial Blood Partial Pressure CO2 63.8*H, Arterial Blood Partial Pressure O2 74.2L, Arterial Blood HCO3 37.7H, Arterial Blood Oxygen Saturation 94.6L, Arterial Blood Base Excess 9.0H, Rahul Test Positive 05/29/18 11:15: White Blood Count 20.2H, Red Blood Count 6.28H, Hemoglobin 19.6*H, Hematocrit 60.5H, Mean Corpuscular Volume 96, Mean Corpuscular Hemoglobin 31.1H, Mean Corpuscular Hemoglobin Concent 32.3, Red Cell Distribution Width 12.0, Platelet Count 336, Mean Platelet Volume 6.2L, Neutrophils (%) (Auto) , Lymphocytes (%) ( Auto) , Monocytes (%) (Auto) , Eosinophils (%) (Auto) , Basophils (%) (Auto) , Differential Total Cells Counted 100, Neutrophils % (Manual) 89H, Lymphocytes % (Manual) 6L, Monocytes % (Manual) 5, Eosinophils % (Manual) 0, Basophils % ( Manual) 0, Band Neutrophils 0, Platelet Estimate Adequate, Platelet Morphology Normal, Sodium Level 149H, Potassium Level 4.4, Chloride Level 107, Carbon Dioxide Level 35H, Anion Gap 7, Blood Urea Nitrogen 70H, Creatinine 1.2, Estimat Glomerular Filtration Rate 44.8, Glucose Level 172H, Uric Acid 11.7H, Calcium Level 10.0, Phosphorus Level 3.4, Magnesium Level 2.5H, Total Bilirubin 0.4, Aspartate Amino Transf (AST/SGOT) 17, Alanine Aminotransferase (ALT/SGPT) 27, Alkaline Phosphatase 107, C-Reactive Protein, Quantitative 3.3H, Pro-B-Type Natriuretic Peptide 113, Total Protein 8.7H, Albumin 3.4, Globulin 5.3, Albumin/ Globulin Ratio 0.6L Height (Feet): 5 Height (Inches): 5.00 Weight (Pounds): 179 Objective General Appearance: no apparent distress, GCS 15, non-toxic, other - sleepy Head: normocephalic, atraumatic Eyes: bilateral eye normal inspection, bilateral eye PERRL ENT: hearing grossly normal, normal pharynx, no angioedema, normal voice Neck: full range of motion, supple/symm/no masses Respiratory: chest non-tender, lungs clear, normal breath sounds Cardiovascular: regular rate, rhythm, no edema Gastrointestinal: normal bowel sounds, non tender Musculoskeletal: back normal, gait/station normal Jorje Troy MD May 29, 2018 22:24
[2018-05-30] VITALS: BP 143/86
[2018-05-30] MEDS: Albuterol/Ipratropium 3ml neb HHN SCH ×4 (00:38→19:08)
[2018-05-30 04:00] VITALS: BP 119/87
[2018-05-30] MEDS: Meropenem 1 GM in NS 55 ML IVPB SCH ×3 (05:15→20:47)
--- NOTE | 2018-05-30 07:19 | NUR ---
HAND-OFF: Report given Araceli Rn- pt. remains stable and no signs of distress noted.
[2018-05-30 08:00] VITALS: BP 142/93
--- NOTE | 2018-05-30 08:03 | Pulmonology Progress Note ---
Assessment/Plan Problems: (1) COPD exacerbation (2) Hypercapnic respiratory failure, chronic (3) Hypoxia (4) Benzodiazepine dependence (5) Hypercarbia (6) Schizoaffective disorder Assessment/Plan ASSESSMENT: The patient is a 67-year-old female smoker with history of chronic obstructive pulmonary disease, assisted living resident, hypertension, hyperlipidemia, hypothyroidism, presenting after a fall, respiratory distress, likely exacerbation of chronic obstructive pulmonary disease and urinary tract infection. PROBLEM LIST: 1. Acute on chronic hypercapnic respiratory failure. 2. Chronic obstructive pulmonary disease with acute exacerbation. 3. Urinary tract infection ( alpha hemolytic strep) 4. CoNS in blood likely contaminant 5. Leukocytosis secondary to above and steroids 6. Questionable fall. 7. History of psychiatric disorder. 8. Hypertension, hyperlipidemia, hypothyroidism. 9. Mild elevation of D-dimer. 10. Hemoconcentration TREATMENT PLAN: 1. Optimize pulmonary hygiene/mobilize as tolerated. 2. BiPAP 12/5 qHS and PRN 3. Titrate FiO2 to keep saturations greater than 90%. 4. RTC and PRN DuoNeb + MUCOMYST + CPT 5. Decrease SM to 40 IV qDaily (D7) 6. Abx per ID 7. NPO while on BiPAP, once off we will advance diet cautiously with aspiration precautions. 8. Monitor volumes and renal function, continue IV Lasix per Cardiology. 9. DVT prophylaxis with heparin subcutaneous. 10. F/U neuro & psych recs, monitor MS, minimize sedative 11. The patient should have outpatient workup including pulmonary function tests Subjective Allergies: Coded Allergies: No Known Allergies (Unverified , 05/22/18) Subjective AFVSS WCt better Briefly used BiPAP ON, now on VM 55% Slightly more alert No cough + SOB no wheezing no CP no FC Objective Last 24 Hour Vital Signs Date Time Temp Pulse Resp B/P (MAP) Pulse Ox O2 Delivery O2 Flow Rate FiO2 05/30/18 06:58 Venturi Mask 14.0 55 05/30/18 06:58 Venturi Mask 14.0 55 05/30/18 04:30 93 26 95 Facial 50 05/30/18 04:00 98.9 102 28 119/87 (98) 99 05/30/18 04:00 Venturi Mask 05/30/18 04:00 55 05/30/18 04:00 102 05/30/18 03:30 96 24 94 Facial 50 05/30/18 00:55 97 28 96 Bi-pap 50 05/30/18 00:41 95 28 95 Facial 50 05/30/18 00:39 95 28 94 Bi-pap 50 05/30/18 00:00 104 05/30/18 00:00 55 05/30/18 00:00 Venturi Mask 05/30/18 00:00 99.0 103 30 143/86 (105) 94 05/29/18 22:54 103 38 94 Facial 50 05/29/18 21:14 102 35 92 Facial 55 05/29/18 21:00 55 05/29/18 20:00 15.0 05/29/18 20:00 122 05/29/18 20:00 Venturi Mask 05/29/18 20:00 98.9 113 22 149/90 (109) 94 05/29/18 19:37 115 30 93 Bi-pap 55 05/29/18 19:30 120 35 92 Facial 55 05/29/18 19:27 111 29 93 Venturi Mask 14.0 55 05/29/18 16:00 118 05/29/18 16:00 99.5 101 29 135/85 (102) 91 05/29/18 16:00 Venturi Mask 05/29/18 16:00 15.0 05/29/18 12:58 112 22 93 Venturi Mask 14.0 55 05/29/18 12:50 110 19 93 Venturi Mask 14.0 55 05/29/18 12:00 98.4 103 35 154/76 (102) 94 05/29/18 12:00 15.0 05/29/18 12:00 Venturi Mask 05/29/18 12:00 105 Intake and Output 05/29/18 05/30/18 19:00 07:00 Intake Total 770 ml 110 ml Output Total 900 ml 850 ml Balance -130 ml -740 ml Intake Free Water 150 ml IV Total 55 ml 55 ml Tube Feeding 565 ml 55 ml Output Urine Total 900 ml 850 ml General Appearance: cachetic HEENT: normocephalic, atraumatic, anicteric, mucous membranes moist Respiratory/Chest: lungs clear - but distant, no respiratory distress, no accessory muscle use Cardiovascular: normal peripheral pulses, normal rate, regular rhythm Abdomen: normal bowel sounds, soft, non tender, no organomegaly, non distended , no mass Extremities: no cyanosis, no clubbing, no edema Laboratory Tests 05/29/18 10:20: Arterial Blood pH 7.389, Arterial Blood Partial Pressure CO2 63.8*H, Arterial Blood Partial Pressure O2 74.2L, Arterial Blood HCO3 37.7H, Arterial Blood Oxygen Saturation 94.6L, Arterial Blood Base Excess 9.0H, Rahul Test Positive 05/29/18 11:15: White Blood Count 20.2H, Red Blood Count 6.28H, Hemoglobin 19.6*H, Hematocrit 60.5H, Mean Corpuscular Volume 96, Mean Corpuscular Hemoglobin 31.1H, Mean Corpuscular Hemoglobin Concent 32.3, Red Cell Distribution Width 12.0, Platelet Count 336, Mean Platelet Volume 6.2L, Neutrophils (%) (Auto) , Lymphocytes (%) ( Auto) , Monocytes (%) (Auto) , Eosinophils (%) (Auto) , Basophils (%) (Auto) , Differential Total Cells Counted 100, Neutrophils % (Manual) 89H, Lymphocytes % (Manual) 6L, Monocytes % (Manual) 5, Eosinophils % (Manual) 0, Basophils % ( Manual) 0, Band Neutrophils 0, Platelet Estimate Adequate, Platelet Morphology Normal, Sodium Level 149H, Potassium Level 4.4, Chloride Level 107, Carbon Dioxide Level 35H, Anion Gap 7, Blood Urea Nitrogen 70H, Creatinine 1.2, Estimat Glomerular Filtration Rate 44.8, Glucose Level 172H, Uric Acid 11.7H, Calcium Level 10.0, Phosphorus Level 3.4, Magnesium Level 2.5H, Total Bilirubin 0.4, Aspartate Amino Transf (AST/SGOT) 17, Alanine Aminotransferase (ALT/SGPT) 27, Alkaline Phosphatase 107, C-Reactive Protein, Quantitative 3.3H, Pro-B-Type Natriuretic Peptide 113, Total Protein 8.7H, Albumin 3.4, Globulin 5.3, Albumin/ Globulin Ratio 0.6L Current Medications Medications (Trade) Dose Ordered Sig/Salty Route PRN Reason Start Time Stop Time Status Last Admin Dose Admin Acetaminophen (Tylenol) 500 mg Q4H PRN NG Mild Pain/Temp > 100.5 05/27/18 13:09 06/22/18 13:08 Acetylcysteine (Mucomyst) 100 mg TIDRT HHN 05/25/18 13:00 06/24/18 12:59 05/29/18 19:27 Albuterol/ Ipratropium (Albuterol/ Ipratropium) 3 ml Q4H PRN HHN Shortness of Breath 05/28/18 22:00 06/02/18 21:59 05/29/18 08:26 Albuterol/ Ipratropium (Albuterol/ Ipratropium) 3 ml Q6HRT HHN 05/29/18 13:00 06/03/18 12:59 05/30/18 00:38 Azithromycin (Zithromax) 250 mg DAILY ORAL 05/30/18 09:00 06/06/18 08:59 Fluoxetine HCl (PROzac) 20 mg DAILY NG 05/28/18 09:00 06/22/18 11:44 05/29/18 09:48 Furosemide (Lasix) 40 mg DAILY IV 05/23/18 09:00 06/22/18 08:59 05/29/18 09:48 Heparin Sodium (Porcine) (Heparin 5000 units/ml) 5,000 units EVERY 12 HOURS SUBQ 05/22/18 21:00 06/21/18 20:59 05/29/18 20:30 Hydralazine HCl (Apresoline) 10 mg Q4H PRN IV SBP > 170mmHg 05/29/18 16:45 06/28/18 16:44 Iopamidol (Isovue-370 150ml) 150 ml NOW PRN INJ Radiology Procedure 05/29/18 11:30 05/31/18 11:26 Meropenem 1 gm/ Sodium Chloride 55 ml @ 110 mls/hr Q8HR IVPB 05/29/18 14:00 06/03/18 13:59 05/30/18 05:15 Methylprednisolone Sodium Succinate (Solu-MEDROL) 60 mg DAILY IVP 05/24/18 09:00 06/23/18 08:59 05/29/18 09:48 Olanzapine (ZyPREXA) 15 mg BEDTIME NG 05/29/18 21:00 06/28/18 20:59 05/29/18 20:42 Rory Membreno MD May 30, 2018 08:03
--- NOTE | 2018-05-30 08:10 | NUR ---
NURSE NOTES: Report received from RAUL Allan. Observed patient in bed. Awake but lethargic. On venturi mask 14L of oxygen with no distress noted. IV site intact and patent. No s/s of pain at this time. NGT intact with ongoing feeding. HOB elevated. Bed in lowest position. Call light within reach. Will continue to monitor.
[2018-05-30] MEDS ORDERED: Azithromycin 250mg tab ORAL SCH (09:00)
[2018-05-30] MEDS: Solu-MEDROL 40mg Inj IVP SCH (09:25)
[2018-05-30] MEDS: Heparin 5000 units/ml inj SUBQ SCH ×2 (09:26→20:50)
[2018-05-30] MEDS: Acetaminophen 650mg/20.3ml NG PRN (10:32)
--- NOTE | 2018-05-30 11:12 | Infectious Diseases Prog Note ---
Assessment/Plan Assessment/Plan A; Chronic obstructive pulmonary disease exacerbation, leukocytosis; schizoaffective disorder, hypothyroidism, hyperlipidemia, hypertension. Positive blood culture with CoANS P: Continue Zithromax & Meropenem Subjective ROS Limited/Unobtainable: Yes Allergies: Coded Allergies: No Known Allergies (Unverified , 05/22/18) Objective Vital Signs Last 24 Hour Vital Signs Date Time Temp Pulse Resp B/P (MAP) Pulse Ox O2 Delivery O2 Flow Rate FiO2 05/30/18 08:00 120 05/30/18 08:00 15.0 05/30/18 08:00 99.6 111 34 142/93 (109) 95 05/30/18 08:00 Venturi Mask 05/30/18 06:58 Venturi Mask 14.0 55 05/30/18 06:58 Venturi Mask 14.0 55 05/30/18 04:30 93 26 95 Facial 50 05/30/18 04:00 98.9 102 28 119/87 (98) 99 05/30/18 04:00 Venturi Mask 05/30/18 04:00 55 05/30/18 04:00 102 05/30/18 03:30 96 24 94 Facial 50 05/30/18 00:55 97 28 96 Bi-pap 50 05/30/18 00:41 95 28 95 Facial 50 05/30/18 00:39 95 28 94 Bi-pap 50 05/30/18 00:00 104 05/30/18 00:00 55 05/30/18 00:00 Venturi Mask 05/30/18 00:00 99.0 103 30 143/86 (105) 94 05/29/18 22:54 103 38 94 Facial 50 05/29/18 21:14 102 35 92 Facial 55 05/29/18 21:00 55 05/29/18 20:00 15.0 05/29/18 20:00 122 05/29/18 20:00 Venturi Mask 05/29/18 20:00 98.9 113 22 149/90 (109) 94 05/29/18 19:37 115 30 93 Bi-pap 55 05/29/18 19:30 120 35 92 Facial 55 05/29/18 19:27 111 29 93 Venturi Mask 14.0 55 05/29/18 16:00 118 05/29/18 16:00 99.5 101 29 135/85 (102) 91 05/29/18 16:00 Venturi Mask 05/29/18 16:00 15.0 05/29/18 12:58 112 22 93 Venturi Mask 14.0 55 05/29/18 12:50 110 19 93 Venturi Mask 14.0 55 05/29/18 12:00 98.4 103 35 154/76 (102) 94 05/29/18 12:00 15.0 05/29/18 12:00 Venturi Mask 05/29/18 12:00 105 Height (Feet): 5 Height (Inches): 5.00 Weight (Pounds): 179 HEENT: other - oxygen by [facility] Respiratory/Chest: rhonchi - bilaterally Cardiovascular: tachycardia Abdomen: soft, non tender, other - NG tube feeding Extremities: no edema Neurologic/Psychiatric: disoriented, other - opens eyes Laboratory Tests Test 05/29/18 11:15 White Blood Count 20.2 K/UL (4.8-10.8) H Red Blood Count 6.28 M/UL (4.20-5.40) H Hemoglobin 19.6 G/DL (12.0-16.0) *H Hematocrit 60.5 % (37.0-47.0) H Mean Corpuscular Volume 96 FL (80-99) Mean Corpuscular Hemoglobin 31.1 PG (27.0-31.0) H Mean Corpuscular Hemoglobin Concent 32.3 G/DL (32.0-36.0) Red Cell Distribution Width 12.0 % (11.6-14.8) Platelet Count 336 K/UL (150-450) Mean Platelet Volume 6.2 FL (6.5-10.1) L Neutrophils (%) (Auto) % (45.0-75.0) Lymphocytes (%) (Auto) % (20.0-45.0) Monocytes (%) (Auto) % (1.0-10.0) Eosinophils (%) (Auto) % (0.0-3.0) Basophils (%) (Auto) % (0.0-2.0) Differential Total Cells Counted 100 Neutrophils % (Manual) 89 % (45-75) H Lymphocytes % (Manual) 6 % (20-45) L Monocytes % (Manual) 5 % (1-10) Eosinophils % (Manual) 0 % (0-3) Basophils % (Manual) 0 % (0-2) Band Neutrophils 0 % (0-8) Platelet Estimate Adequate Platelet Morphology Normal Sodium Level 149 MMOL/L (136-145) H Potassium Level 4.4 MMOL/L (3.5-5.1) Chloride Level 107 MMOL/L (98-107) Carbon Dioxide Level 35 MMOL/L (21-32) H Anion Gap 7 mmol/L (5-15) Blood Urea Nitrogen 70 mg/dL (7-18) H Creatinine 1.2 MG/DL (0.55-1.30) Estimat Glomerular Filtration Rate 44.8 mL/min (>60) Glucose Level 172 MG/DL (74-106) H Uric Acid 11.7 MG/DL (2.6-7.2) H Calcium Level 10.0 MG/DL (8.5-10.1) Phosphorus Level 3.4 MG/DL (2.5-4.9) Magnesium Level 2.5 MG/DL (1.8-2.4) H Total Bilirubin 0.4 MG/DL (0.2-1.0) Aspartate Amino Transf (AST/SGOT) 17 U/L (15-37) Alanine Aminotransferase (ALT/SGPT) 27 U/L (12-78) Alkaline Phosphatase 107 U/L (46-116) C-Reactive Protein, Quantitative 3.3 mg/dL (0.00-0.90) H Pro-B-Type Natriuretic Peptide 113 pg/mL (0-125) Total Protein 8.7 G/DL (6.4-8.2) H Albumin 3.4 G/DL (3.4-5.0) Globulin 5.3 g/dL Albumin/Globulin Ratio 0.6 (1.0-2.7) L Current Medications Medications (Trade) Dose Ordered Sig/Salty Route PRN Reason Start Time Stop Time Status Last Admin Dose Admin Acetaminophen (Tylenol) 500 mg Q4H PRN NG Mild Pain/Temp > 100.5 05/27/18 13:09 06/22/18 13:08 05/30/18 10:32 Acetylcysteine (Mucomyst) 100 mg TIDRT HHN 05/25/18 13:00 06/24/18 12:59 05/29/18 19:27 Albuterol/ Ipratropium (Albuterol/ Ipratropium) 3 ml Q4H PRN HHN Shortness of Breath 05/28/18 22:00 06/02/18 21:59 05/29/18 08:26 Albuterol/ Ipratropium (Albuterol/ Ipratropium) 3 ml Q6HRT HHN 05/29/18 13:00 06/03/18 12:59 05/30/18 00:38 Azithromycin (Zithromax) 250 mg DAILY NG 05/31/18 09:00 06/07/18 08:59 Fluoxetine HCl (PROzac) 20 mg DAILY NG 05/28/18 09:00 06/22/18 11:44 05/30/18 09:24 Furosemide (Lasix) 40 mg DAILY IV 05/23/18 09:00 06/22/18 08:59 05/30/18 09:25 Heparin Sodium (Porcine) (Heparin 5000 units/ml) 5,000 units EVERY 12 HOURS SUBQ 05/22/18 21:00 06/21/18 20:59 05/30/18 09:26 Hydralazine HCl (Apresoline) 10 mg Q4H PRN IV SBP > 170mmHg 05/29/18 16:45 06/28/18 16:44 Iopamidol (Isovue-370 150ml) 150 ml NOW PRN INJ Radiology Procedure 05/29/18 11:30 05/31/18 11:26 Meropenem 1 gm/ Sodium Chloride 55 ml @ 110 mls/hr Q8HR IVPB 05/29/18 14:00 06/03/18 13:59 05/30/18 05:15 Methylprednisolone Sodium Succinate (Solu-MEDROL) 40 mg DAILY IVP 05/30/18 09:00 06/23/18 08:59 05/30/18 09:25 Olanzapine (ZyPREXA) 15 mg BEDTIME NG 05/29/18 21:00 06/28/18 20:59 05/29/18 20:42 Migel Cohen MD May 30, 2018 11:12
[2018-05-30 12:00] VITALS: BP 148/83
--- NOTE | 2018-05-30 12:14 | Nephrology Progress Note ---
Assessment/Plan Problem List: (1) Proteinuria (2) Hypoalbuminemia (3) COPD exacerbation (4) Schizoaffective disorder Assessment admitted with exacerbation COPD and Hypoxia High WBCs : UTI , Pneumonia Proteinuria and HypoAlbuminemia Plan stop Lasix One liter D5w doing poorly MS down multifactorial BIPAP Antibiotics 24 h urine proteins CAN NOT BE COLLECTED UNLESS FOLEY_ WILL DEFER 2D echo Left ventricular ejection fraction grossly estimated to be 65 %. optimize cardiac status Subjective ROS Limited/Unobtainable: Yes Objective Objective Last 24 Hour Vital Signs Date Time Temp Pulse Resp B/P (MAP) Pulse Ox O2 Delivery O2 Flow Rate FiO2 05/30/18 11:02 99.0 05/30/18 08:00 120 05/30/18 08:00 15.0 05/30/18 08:00 99.6 111 34 142/93 (109) 95 05/30/18 08:00 Venturi Mask 05/30/18 06:58 Venturi Mask 14.0 55 05/30/18 06:58 Venturi Mask 14.0 55 05/30/18 04:30 93 26 95 Facial 50 05/30/18 04:00 98.9 102 28 119/87 (98) 99 05/30/18 04:00 Venturi Mask 05/30/18 04:00 55 05/30/18 04:00 102 05/30/18 03:30 96 24 94 Facial 50 05/30/18 00:55 97 28 96 Bi-pap 50 05/30/18 00:41 95 28 95 Facial 50 05/30/18 00:39 95 28 94 Bi-pap 50 05/30/18 00:00 104 05/30/18 00:00 55 05/30/18 00:00 Venturi Mask 05/30/18 00:00 99.0 103 30 143/86 (105) 94 05/29/18 22:54 103 38 94 Facial 50 05/29/18 21:14 102 35 92 Facial 55 05/29/18 21:00 55 05/29/18 20:00 15.0 05/29/18 20:00 122 05/29/18 20:00 Venturi Mask 05/29/18 20:00 98.9 113 22 149/90 (109) 94 05/29/18 19:37 115 30 93 Bi-pap 55 05/29/18 19:30 120 35 92 Facial 55 05/29/18 19:27 111 29 93 Venturi Mask 14.0 55 05/29/18 16:00 118 05/29/18 16:00 99.5 101 29 135/85 (102) 91 05/29/18 16:00 Venturi Mask 05/29/18 16:00 15.0 05/29/18 12:58 112 22 93 Venturi Mask 14.0 55 05/29/18 12:50 110 19 93 Venturi Mask 14.0 55 Intake and Output 05/29/18 05/30/18 18:59 06:59 Intake Total 920 ml 55 ml Output Total 900 ml 850 ml Balance 20 ml -795 ml Intake Free Water 250 ml IV Total 55 ml 55 ml Tube Feeding 615 ml Output Urine Total 900 ml 850 ml Height (Feet): 5 Height (Inches): 5.00 Weight (Pounds): 179 EENT: other - BIPAP Cardiovascular: tachycardia Respiratory/Chest: decreased breath sounds Abdomen: distended Objective no change Seamus Morfin MD May 30, 2018 12:14
--- NOTE | 2018-05-30 13:14 | General Progress Note ---
Assessment/Plan Problem List: (1) Schizoaffective disorder ICD Codes: F25.9 - Schizoaffective disorder, unspecified SNOMED: 66907719 (2) Acute metabolic encephalopathy ICD Codes: G93.41 - Metabolic encephalopathy SNOMED: 23463024, 464411960 Assessment/Plan cont prozac 20mg po qam cont zyprexa 15mg po qhs provided ro/st aspiration precaution the pt lacks capacity to sign consent forms Subjective Allergies: Coded Allergies: No Known Allergies (Unverified , 05/22/18) Subjective the pt is agitated the pt is more confused today the pt is not able to answer any questions the pt has waxing and waning of consciousness/more alert today Objective Last 24 Hour Vital Signs Date Time Temp Pulse Resp B/P (MAP) Pulse Ox O2 Delivery O2 Flow Rate FiO2 05/30/18 13:08 Venturi Mask 14.0 55 05/30/18 13:08 Venturi Mask 14.0 55 05/30/18 11:02 99.0 05/30/18 08:00 120 05/30/18 08:00 15.0 05/30/18 08:00 99.6 111 34 142/93 (109) 95 05/30/18 08:00 Venturi Mask 05/30/18 06:58 Venturi Mask 14.0 55 05/30/18 06:58 Venturi Mask 14.0 55 05/30/18 04:30 93 26 95 Facial 50 05/30/18 04:00 98.9 102 28 119/87 (98) 99 05/30/18 04:00 Venturi Mask 05/30/18 04:00 55 05/30/18 04:00 102 05/30/18 03:30 96 24 94 Facial 50 05/30/18 00:55 97 28 96 Bi-pap 50 05/30/18 00:41 95 28 95 Facial 50 05/30/18 00:39 95 28 94 Bi-pap 50 05/30/18 00:00 104 05/30/18 00:00 55 05/30/18 00:00 Venturi Mask 05/30/18 00:00 99.0 103 30 143/86 (105) 94 05/29/18 22:54 103 38 94 Facial 50 05/29/18 21:14 102 35 92 Facial 55 2/11/19 21:00 55 05/29/18 20:00 15.0 05/29/18 20:00 122 05/29/18 20:00 Venturi Mask 05/29/18 20:00 98.9 113 22 149/90 (109) 94 05/29/18 19:37 115 30 93 Bi-pap 55 05/29/18 19:30 120 35 92 Facial 55 05/29/18 19:27 111 29 93 Venturi Mask 14.0 55 05/29/18 16:00 118 05/29/18 16:00 99.5 101 29 135/85 (102) 91 05/29/18 16:00 Venturi Mask 05/29/18 16:00 15.0 Intake and Output 05/29/18 05/30/18 18:59 06:59 Intake Total 920 ml 55 ml Output Total 900 ml 850 ml Balance 20 ml -795 ml Intake Free Water 250 ml IV Total 55 ml 55 ml Tube Feeding 615 ml Output Urine Total 900 ml 850 ml Height (Feet): 5 Height (Inches): 5.00 Weight (Pounds): 179 General Appearance: alert, confused, agitated Reagan Marshall MD May 30, 2018 13:14
--- NOTE | 2018-05-30 13:26 | NUR ---
RD ASSESSMENT & RECOMMENDATIONS SEE CARE ACTIVITY FOR COMPLETE ASSESSMENT DAILY ESTIMATED NEEDS: Needs based on Pulmonary 62.6kg adj 25-30 kcals/kg 4515-3816 total kcals 1-1.5 g protein/kg 63-94 g total protein 25-30 mL/kg 9312-8267 total fluid mLs NUTRITION DIAGNOSIS: * Swallowing difficulty r/t dysphagia, respiratory status as evidenced by BLOCK PILER recommends to continue nonoral feedings at this time, pt now on venturi mask w/ BIPAP @ HS + PRN. CURRENT TF:Glucerna 1.2 @ 55ml/hr, off 2 hrs before BIPAP starts and during BIPAP PO DIET RECOMMENDATIONS: WHEN SAFE FOR ORAL FEEDS-> CCHO MED, LOW NA/ texture per BLOCK PILER ENTERAL NUTRITION RECOMMENDATIONS: Glucerna 1.2 @55ml /hr x24 hrs to provide 1320ml, 1584 kcal, 79g prot, 1063ml free H2O - WITHOUT NEED TO HOLD TF, rec to continue Glucerna 1.2 @ 55ml/hr x 24 hrs (currently on BIPAP QHS + PRN, TF to be held 2 hrs before + during BIPAP) - Flush per MD. HOb over 30 degrees IF PT CONTINUES TO REQUIRE BIPAP : Rec TF change to TWOCAL HN @ 65ml/hr x 12 hrs -> 780ml, 1560kcal, 65g prot. Rec SSI w/ noncarb formula of TwoCal HN. ADDITIONAL RECOMMENDATIONS: * Monitor BG on solumedrol, needs for hypoglycemics * Calibrated bed scale wts * Monitor lytes, replete as needed * TF held for many hours while requiring BIPAP. Rec TF change as above if pt continues to require BIPAP @ QHS+ prn.
--- NOTE | 2018-05-30 13:40 | NUR ---
ST NOTE: SWALLOW STATUS FOLLOWED UP PT'S CONDITIONS. PER VITAL SIGN: RR: 30s, SPO2: 94/112. PT IS ON VENTURI MASK(15L). PT SEEN AT BEDSIDE IN PM. PT AWAKE, ORIENTED X 2. HOWEVER, PT STILL SEEMS CONFUSED. SHALLOW BREATHING WAS NOTED. DISCUSSED WITH RN, DWAYNE, RE:PT'S CONDITIONS. PER RN, PT HAS FEVER THIS MORNING AND LETHARGIC. CURRENTLY, PT IS NOT READY FOR VIDEOSWALLOW STUDY AT THIS TIME. WILL FOLLOW UP. RN NOTIFIED.
--- NOTE | 2018-05-30 15:40 | Cardiac Electrophysiology PN ---
Assessment/Plan Assessment/Plan 1. Acute shortness of breath due to COPD. On and off on BIPAP and Abx per Dr. Membreno Ruled out for ME. EF 65%. May need Tracheostomy. No Significant CHF. DC Lasix 2. Elevated white count, likely pneumonia, on BiPAP. Antibiotic per Dr. Cohen. 3. History of psychosis. 4. Sinus tach due to PNA. No fib DW RN Subjective Subjective On Face Mask in restraints. In SR Objective Last 24 Hour Vital Signs Date Time Temp Pulse Resp B/P (MAP) Pulse Ox O2 Delivery O2 Flow Rate FiO2 05/30/18 13:08 Venturi Mask 14.0 55 05/30/18 13:08 Venturi Mask 14.0 55 05/30/18 12:00 15.0 55 05/30/18 12:00 Venturi Mask 15.0 05/30/18 12:00 99.0 115 31 148/83 (104) 94 05/30/18 12:00 105 05/30/18 11:02 99.0 05/30/18 08:00 120 05/30/18 08:00 15.0 05/30/18 08:00 99.6 111 34 142/93 (109) 95 05/30/18 08:00 Venturi Mask 05/30/18 06:58 Venturi Mask 14.0 55 05/30/18 06:58 Venturi Mask 14.0 55 05/30/18 04:30 93 26 95 Facial 50 05/30/18 04:00 98.9 102 28 119/87 (98) 99 05/30/18 04:00 Venturi Mask 05/30/18 04:00 55 05/30/18 04:00 102 05/30/18 03:30 96 24 94 Facial 50 05/30/18 00:55 97 28 96 Bi-pap 50 05/30/18 00:41 95 28 95 Facial 50 05/30/18 00:39 95 28 94 Bi-pap 50 05/30/18 00:00 104 05/30/18 00:00 55 05/30/18 00:00 Venturi Mask 05/30/18 00:00 99.0 103 30 143/86 (105) 94 05/29/18 22:54 103 38 94 Facial 50 05/29/18 21:14 102 35 92 Facial 55 05/29/18 21:00 55 05/29/18 20:00 15.0 05/29/18 20:00 122 05/29/18 20:00 Venturi Mask 05/29/18 20:00 98.9 113 22 149/90 (109) 94 05/29/18 19:37 115 30 93 Bi-pap 55 05/29/18 19:30 120 35 92 Facial 55 05/29/18 19:27 111 29 93 Venturi Mask 14.0 55 05/29/18 16:00 118 05/29/18 16:00 99.5 101 29 135/85 (102) 91 05/29/18 16:00 Venturi Mask 05/29/18 16:00 15.0 Intake and Output 05/29/18 05/30/18 18:59 06:59 Intake Total 920 ml 55 ml Output Total 900 ml 850 ml Balance 20 ml -795 ml Intake Free Water 250 ml IV Total 55 ml 55 ml Tube Feeding 615 ml Output Urine Total 900 ml 850 ml Objective HEAD AND NECK: No JVD on Venturi Mask LUNGS: Coarse rhonchi. CARDIOVASCULAR: Regular S1 and S2 no M/G/R ABDOMEN: Soft. EXTREMITIES: No pitting edema. Zane Ocampo MD May 30, 2018 15:40
[2018-05-30 16:00] VITALS: BP 146/74
--- NOTE | 2018-05-30 16:57 | General Progress Note ---
Assessment/Plan Assessment/Plan (1) S/p fall (2) COPD Exacerbation (3) OA Patient to be continued on Tylenol D/w Dr. Garcia and he concurred. Subjective Date patient seen: May 30, 2018 Time patient seen: 04:56 - pm ROS Limited/Unobtainable: Yes Allergies: Coded Allergies: No Known Allergies (Unverified , 05/22/18) Subjective Patient laying in bed in no signs of pain. Objective Last 24 Hour Vital Signs Date Time Temp Pulse Resp B/P (MAP) Pulse Ox O2 Delivery O2 Flow Rate FiO2 05/30/18 16:00 15.0 55 05/30/18 16:00 Venturi Mask 15.0 05/30/18 13:08 Venturi Mask 14.0 55 05/30/18 13:08 Venturi Mask 14.0 55 05/30/18 12:00 15.0 55 05/30/18 12:00 Venturi Mask 15.0 05/30/18 12:00 99.0 115 31 148/83 (104) 94 05/30/18 12:00 105 05/30/18 11:02 99.0 05/30/18 08:00 120 05/30/18 08:00 15.0 05/30/18 08:00 99.6 111 34 142/93 (109) 95 05/30/18 08:00 Venturi Mask 05/30/18 06:58 Venturi Mask 14.0 55 05/30/18 06:58 Venturi Mask 14.0 55 05/30/18 04:30 93 26 95 Facial 50 05/30/18 04:00 98.9 102 28 119/87 (98) 99 05/30/18 04:00 Venturi Mask 05/30/18 04:00 55 05/30/18 04:00 102 05/30/18 03:30 96 24 94 Facial 50 05/30/18 00:55 97 28 96 Bi-pap 50 05/30/18 00:41 95 28 95 Facial 50 05/30/18 00:39 95 28 94 Bi-pap 50 05/30/18 00:00 104 05/30/18 00:00 55 05/30/18 00:00 Venturi Mask 05/30/18 00:00 99.0 103 30 143/86 (105) 94 2/11/19 22:54 103 38 94 Facial 50 05/29/18 21:14 102 35 92 Facial 55 05/29/18 21:00 55 05/29/18 20:00 15.0 05/29/18 20:00 122 05/29/18 20:00 Venturi Mask 05/29/18 20:00 98.9 113 22 149/90 (109) 94 05/29/18 19:37 115 30 93 Bi-pap 55 05/29/18 19:30 120 35 92 Facial 55 05/29/18 19:27 111 29 93 Venturi Mask 14.0 55 Intake and Output 05/29/18 05/30/18 18:59 06:59 Intake Total 920 ml 55 ml Output Total 900 ml 850 ml Balance 20 ml -795 ml Intake Free Water 250 ml IV Total 55 ml 55 ml Tube Feeding 615 ml Output Urine Total 900 ml 850 ml Height (Feet): 5 Height (Inches): 5.00 Weight (Pounds): 179 Objective Neck: non-tender, supple Cardiovascular: normal rate, regular rhythm Respiratory/Chest: decreased breath sounds Abdomen: non tender, soft Extremities: non-tender Edema: trace edema Skin: warm/dry Anjum Dumont May 30, 2018 16:57
--- NOTE | 2018-05-30 18:49 | Neurology Progress Note ---
Interim History Interim History Interim History Ms. Whitfield feels a little better. She feels that her mind is clearer. She feels stronger generally. She is on a O2 mask. She is again delusional today - says she is "" and has been "Killed." She denies any new neurologic symptoms. She is still forgetful. Her level of cooperation is variable. Review of Systems Neuro Review of Systems Benign. Objective Physical Exam Last Vital Signs Date Time Temp Pulse Resp B/P (MAP) Pulse Ox O2 Delivery O2 Flow Rate FiO2 05/30/18 16:00 15.0 55 05/30/18 16:00 107 05/30/18 16:00 Venturi Mask 05/30/18 16:00 99.3 146/74 (98) 05/30/18 12:00 31 94 Neurologic Exam Objective PHYSICAL EXAMINATION: GENERAL: She is a well-developed, well-nourished, pleasant lady, lying in bed. HEAD: Normocephalic and atraumatic. EENT: Examination benign NECK: No neck rigidity was observed. NEUROLOGICAL EXAMINATION: MENTAL STATUS EXAMINATION: She was awake and alert. She was oriented to self, [facility] and May only. She was able to recall 3/3 words immediately but could only remember 1/3 after 1 minute and after 3 minutes. She was able to remember president [place] only Her mathematical skills were impaired. Her visuospatial function was also impaired. SPEECH: She had a mild dysarthria. LANGUAGE: She had a mild anomia for low-frequency words. CRANIAL NERVE EXAMINATION: II: The visual beltran were intact on confrontation testing. III, IV & : The external ocular movements were full and the pupils 3 mm in diameter, equal, round, regular, and reactive to light. V: She had normal facial sensations, and the temporales, masseters, and pterygoids functioned normally. VII: She had normal facial expressions and no facial asymmetry. VIII: She was able to hear well bilaterally and had no nystagmus. IX: The palate moved symmetrically on phonation. X: She had no hoarseness of voice. XI: The sternocleidomastoids and trapezii functioned normally. XII: The tongue was in the midline without any fasciculations or atrophy. MOTOR SYSTEM: The tone was normal in all four extremities. Examination of muscle mass revealed no focal wasting. Examination of power revealed G 5/5 power in the upper extremities. She also had G 5/5 in the lower extremities except for G 4/5 in the iliopsoas. SENSORY EXAMINATION: She had intact sensations to light touch but did not cooperate for further sensory testing. COORDINATION: She performed well on odzkxr-sv-bjum testing. She was unable to perform uspt-ox-fcxn testing. REFLEXES: Trace+ and bilaterally symmetrical at the biceps, triceps, brachioradialis, and knees, 0 at both ankles. The plantar responses were flexor bilaterally. STANCE: Could not be tested. GAIT: Could not be tested. Impression/Recommendations Diagnostic Impression 1. Ms Leigh Ann Whitfield is a 67-year-old, right-handed, lady, who does have a past history of hypertension, dyslipidemia, chronic obstructive pulmonary disease, hypothyroidism, schizoaffective disorder, and recent falls, who was hospitalized on 05/22/2018 for an altered mental state and a fall at [facility] home. She was found to be hypoxic, hypercapnic, and had a significant leukocytosis. Since she has been in the hospital, she has improved. 2. She feels a little better. She feels that her mind is clearer. She feels stronger generally. She is on a O2 mask. She is again delusional today - says she is "" and has been "Killed." She denies any new neurologic symptoms. She is still forgetful. Her level of cooperation is variable. 3. On neurological examination, at this time, she is disoriented to the date and year. Has problems with recent and remote memory, visuospatial function and higher cognitive function. Has a dysarthric speech, has a mild anomia, has proximal lower extremities weakness, an has globally diminished deep tendon reflexes. 4. Laboratory data on my initial evaluation revealed that she had a significant leukocytosis with a WBC count of 19,700. Her chemistry panel reveals that her uric acid level was elevated at 8.2, magnesium was low at 1.6. ProBNP that was elevated at 186, albumin was low at 2.5. Her B12 level was normal at 924. Her folate level was normal at 40.6. Her TSH was normal at 1.92 with a free T4 of 1.13. The Hemoglobin A1c was at 6%. Latest arterial blood gas revealed a pH at 7.37, pCO2 at 62, and pO2 at 56. Her urinalysis revealed 1+ leukocyte esterase, 0-2 red blood cells, and 2-4 white blood cells per high-power field. 5. Further laboratory tests have revealed a minimally elevated ammonia at 34. 6. The last ABG done on 05/29/18 revealed a pH of 7.39, elevated pCO2 at 64 and low pO2 at 74. 7. She continues to have a significant leukocytosis with a WBC count of 20,200 on 05/29/18. 8. The CT scan of the brain without contrast revealed atrophy and some deep white matter changes, but no acute pathology. 9. The EGG done on 05/24/18 was normal in the awake and drowsy states. 10. The patient's history, neurological examination, laboratory data, and imaging studies are most compatible with a toxic metabolic encephalopathy related to the hypoxia, hypercapnia, and an infectious process. 11. She is again exhibiting psychotic features. Recommendations 1. Agree with management thus far. 2. Aggressive treatment of the patient's respiratory failure as per Dr. Membreno. 3. Aggressive treatment of the patient's infectious process as per Dr. Cohen. 4. Correction of fluid and electrolyte status. 5. Observe closely. Fransico Bolton M.D., M.S.P.H. Fransico Bolton MD May 30, 2018 18:49
--- NOTE | 2018-05-30 18:51 | General Progress Note ---
Assessment/Plan Assessment/Plan Assessment and Recs: # Leukocytosis - is likely related to infection/pna --> smear has been reviewed and only 1% metamyelocytes noted, not significant finding --> esr and crp elevated --> wbc trend : 19--> 22--> 21--> 20 --> abx as per Dr. Cohen, currently on cefepime # Elevated d-dimer - r/o dvt of lower ext --> venous duplex negative scan --> likely elevated due to many possible reasons --> CXR 05/27 Elevated right hemidiaphragm. Bibasilar lung atelectasis. # Hypoxemia potentially copd related --> off bipap at this time --> bipap at night as per pulm # Hypercarbia # Benzodiazepine dependence # Psychosis # Sinus tach --> as per Dr. Ocampo The timing of this note does not necessarily reflect the time of the patient was seen. Greatly appreciate consultation! Subjective ROS Limited/Unobtainable: Yes Allergies: Coded Allergies: No Known Allergies (Unverified , 05/22/18) Subjective 2: on venturi mask, no new changes, mild fever today, no chills 2: Pt is seen by bedside, awake, comfortable, wbc trending up 2: hgb and wbc trending up, seen in the room, awake, bipap, no fevers or cills , 05/26: no new changes, no fever, no chills, Back on BIPAP 05/29:seen by bedside in restraints. BP is elevated, CXR is reviewed, no acute findings, hgb trending up. 05/30: awake, comfortable, no acute distress, wbc 20, hgb still trending up at 19 today. Objective Last 24 Hour Vital Signs Date Time Temp Pulse Resp B/P (MAP) Pulse Ox O2 Delivery O2 Flow Rate FiO2 05/30/18 16:00 15.0 55 05/30/18 16:00 107 05/30/18 16:00 Venturi Mask 15.0 05/30/18 16:00 99.3 108 146/74 (98) 05/30/18 13:08 Venturi Mask 14.0 55 05/30/18 13:08 Venturi Mask 14.0 55 05/30/18 12:00 15.0 55 05/30/18 12:00 Venturi Mask 15.0 05/30/18 12:00 99.0 115 31 148/83 (104) 94 05/30/18 12:00 105 05/30/18 11:02 99.0 05/30/18 08:00 120 05/30/18 08:00 15.0 05/30/18 08:00 99.6 111 34 142/93 (109) 95 05/30/18 08:00 Venturi Mask 05/30/18 06:58 Venturi Mask 14.0 55 05/30/18 06:58 Venturi Mask 14.0 55 05/30/18 04:30 93 26 95 Facial 50 05/30/18 04:00 98.9 102 28 119/87 (98) 99 05/30/18 04:00 Venturi Mask 05/30/18 04:00 55 05/30/18 04:00 102 05/30/18 03:30 96 24 94 Facial 50 05/30/18 00:55 97 28 96 Bi-pap 50 05/30/18 00:41 95 28 95 Facial 50 05/30/18 00:39 95 28 94 Bi-pap 50 05/30/18 00:00 104 05/30/18 00:00 55 05/30/18 00:00 Venturi Mask 05/30/18 00:00 99.0 103 30 143/86 (105) 94 05/29/18 22:54 103 38 94 Facial 50 05/29/18 21:14 102 35 92 Facial 55 05/29/18 21:00 55 05/29/18 20:00 15.0 05/29/18 20:00 122 05/29/18 20:00 Venturi Mask 05/29/18 20:00 98.9 113 22 149/90 (109) 94 05/29/18 19:37 115 30 93 Bi-pap 55 05/29/18 19:30 120 35 92 Facial 55 05/29/18 19:27 111 29 93 Venturi Mask 14.0 55 Intake and Output 05/29/18 05/30/18 19:00 07:00 Intake Total 770 ml 110 ml Output Total 900 ml 850 ml Balance -130 ml -740 ml Intake Free Water 150 ml IV Total 55 ml 55 ml Tube Feeding 565 ml 55 ml Output Urine Total 900 ml 850 ml Height (Feet): 5 Height (Inches): 5.00 Weight (Pounds): 179 Objective General Appearance: no apparent distress, GCS 15, non-toxic, other - sleepy Head: normocephalic, atraumatic Eyes: bilateral eye normal inspection, bilateral eye PERRL ENT: hearing grossly normal, normal pharynx, no angioedema, normal voice Neck: full range of motion, supple/symm/no masses Respiratory: chest non-tender, lungs clear, normal breath sounds Cardiovascular: regular rate, rhythm, no edema Gastrointestinal: normal bowel sounds, non tender Musculoskeletal: back normal, gait/station normal Jorje Troy MD May 30, 2018 18:51
--- NOTE | 2018-05-30 19:15 | NUR ---
HAND-OFF: Report given to RAUL Diop. Stable condition.
--- NOTE | 2018-05-30 19:30 | NUR ---
NURSE NOTES: Received report from Chikis RN, pt. in bed awake, alert to name- no signs or symptoms of acute cardiac or respiratory distress noted, cardiac monitoring on, comfort measures provided, bed in lowest position and call light within easy reach, bed alarm on, side rails up x's3- safety brakes engaged, pt. able to let me know if she is in any pain by squeezing my hand- no pain indicated, pt. appears to be tolerating current venturi mask settings at 55%- sating at 96%- no distress noted, pt. has Rt. Nare NGT- Glucerna 1.2 at 55cc/hr- per endorsement- no residual noted. pt. is to be on BIPAP 12/5 Fio2 at 60%- and feeding will be stopped prior to BIPAP 2 hours before, pt. is clean and dry, and appears to be comfortable, Rt. AC 20G iv intact and patent-TKO, safety measures continued, will continue with plan of care.
[2018-05-30 20:00] VITALS: BP 142/94
[2018-05-30] MEDS: OLANZapine 10mg tab NG SCH (20:48)
--- NOTE | 2018-05-30 21:01 | NUR ---
CASE MANAGEMENT: REVIEW SI: HYPOXIA . COPD EXACERBATION . HYPERCAPNIC RESPIRATORY FAILURE, CHRONIC T 99.3 HR 115 RR 31 BP 148/83 SAT 94% VENTURI MASK FIO2 55 WBC 20.2 NA 149 IS: ALBUTEROL HHN Q6HR MUCOMYST HHN TID SOLU MEDROL IV QD LASIX IV QD CEFEPIME IV Q12 NGT FEEDING GLUCERNA 1.2 @55ML/HR STEP DOWN UNIT STATUS DCP: PATIENT IS FROM [facility]
--- NOTE | 2018-05-30 21:32 | General Progress Note ---
Assessment/Plan Problem List: (1) Hypoxia ICD Codes: R09.02 - Hypoxemia SNOMED: 005889212 (2) COPD exacerbation ICD Codes: J44.1 - Chronic obstructive pulmonary disease with (acute) exacerbation SNOMED: 948493975 (3) Hypercapnic respiratory failure, chronic ICD Codes: J96.12 - Chronic respiratory failure with hypercapnia SNOMED: 526392540 (4) Hypoxemia ICD Codes: R09.02 - Hypoxemia SNOMED: 185306787 (5) Benzodiazepine dependence ICD Codes: F13.20 - Sedative, hypnotic or anxiolytic dependence, uncomplicated SNOMED: 367859127 (6) Hypoalbuminemia ICD Codes: E88.09 - Other disorders of plasma-protein metabolism, not elsewhere classified SNOMED: 433555334 Status: progressing Assessment/Plan not much changed from yesterday on high oxygen requirement still confused and lethargic on nonrebreath continue suction copd exacerbation reivewed chart and labs Subjective ROS Limited/Unobtainable: Yes Allergies: Coded Allergies: No Known Allergies (Unverified , 05/22/18) Subjective sob Objective Last 24 Hour Vital Signs Date Time Temp Pulse Resp B/P (MAP) Pulse Ox O2 Delivery O2 Flow Rate FiO2 05/30/18 20:00 101 05/30/18 19:21 102 20 95 Venturi Mask 15.0 55 05/30/18 19:08 95 22 97 Venturi Mask 14.0 55 05/30/18 16:00 15.0 55 05/30/18 16:00 107 05/30/18 16:00 Venturi Mask 15.0 05/30/18 16:00 99.3 108 146/74 (98) 05/30/18 13:08 Venturi Mask 14.0 55 05/30/18 13:08 Venturi Mask 14.0 55 05/30/18 12:00 15.0 55 05/30/18 12:00 Venturi Mask 15.0 05/30/18 12:00 99.0 115 31 148/83 (104) 94 05/30/18 12:00 105 05/30/18 11:02 99.0 05/30/18 08:00 120 05/30/18 08:00 15.0 05/30/18 08:00 99.6 111 34 142/93 (109) 95 05/30/18 08:00 Venturi Mask 05/30/18 06:58 Venturi Mask 14.0 55 05/30/18 06:58 Venturi Mask 14.0 55 05/30/18 04:30 93 26 95 Facial 50 05/30/18 04:00 98.9 102 28 119/87 (98) 99 05/30/18 04:00 Venturi Mask 05/30/18 04:00 55 05/30/18 04:00 102 05/30/18 03:30 96 24 94 Facial 50 05/30/18 00:55 97 28 96 Bi-pap 50 05/30/18 00:41 95 28 95 Facial 50 05/30/18 00:39 95 28 94 Bi-pap 50 05/30/18 00:00 104 05/30/18 00:00 55 05/30/18 00:00 Venturi Mask 05/30/18 00:00 99.0 103 30 143/86 (105) 94 05/29/18 22:54 103 38 94 Facial 50 Intake and Output 05/29/18 05/30/18 19:00 07:00 Intake Total 770 ml 110 ml Output Total 900 ml 850 ml Balance -130 ml -740 ml Intake Free Water 150 ml IV Total 55 ml 55 ml Tube Feeding 565 ml 55 ml Output Urine Total 900 ml 850 ml Height (Feet): 5 Height (Inches): 5.00 Weight (Pounds): 179 General Appearance: lethargic Cardiovascular: normal rate Respiratory/Chest: rhonchi - bilaterally Abdomen: soft Margot Dutta MD May 30, 2018 21:32
[2018-05-31] VITALS: BP 150/84
[2018-05-31] MEDS: Albuterol/Ipratropium 3ml neb HHN SCH ×4 (01:09→19:21)
[2018-05-31 04:00] VITALS: BP 148/86
[2018-05-31] MEDS: Meropenem 1 GM in NS 55 ML IVPB SCH ×3 (05:11→21:47)
--- NOTE | 2018-05-31 07:23 | NUR ---
HAND-OFF: Report given to Araceli Rasmussen, pt. remians stable and no signs of distress noted.
--- NOTE | 2018-05-31 07:27 | NUR ---
NURSE NOTES: Report received from RAUL Allan. Observed patient in bed. Awake and moaning. Able to follow simple command. Receiving 14L of oxygen via venturi mask with no acute distress noted. IV site intact and patent. NGT intact with ongoing feeding. HOB elevated. No residual noted. Bed in lowest position. Call light within reach. Will continue to monitor.
[2018-05-31 07:54] VITALS: BP 138/88
[2018-05-31] MEDS: Solu-MEDROL 40mg Inj IVP SCH (08:16)
[2018-05-31] MEDS: Azithromycin 250mg tab NG SCH (08:17)
[2018-05-31] MEDS: Heparin 5000 units/ml inj SUBQ SCH ×2 (08:18→20:47)
--- NOTE | 2018-05-31 08:52 | General Progress Note ---
Assessment/Plan Assessment/Plan (1) S/p fall (2) COPD Exacerbation (3) OA Patient to be continued on Tylenol D/w Dr. Garcia and he concurred. Subjective Date patient seen: May 31, 2018 Time patient seen: 07:15 - am Constitutional: Reports: weakness Respiratory: Reports: shortness of breath Neurologic/Psychiatric: Reports: weakness Allergies: Coded Allergies: No Known Allergies (Unverified , 05/22/18) Subjective Patient is in bed showing no signs of pain or distress. Objective Last 24 Hour Vital Signs Date Time Temp Pulse Resp B/P (MAP) Pulse Ox O2 Delivery O2 Flow Rate FiO2 05/31/18 07:54 97.7 111 32 138/88 (105) 94 05/31/18 07:41 108 29 93 Venturi Mask 14.0 55 05/31/18 07:41 108 29 93 Venturi Mask 14.0 55 05/31/18 04:00 97.9 93 27 148/86 (106) 94 05/31/18 04:00 Venturi Mask 15.0 05/31/18 04:00 99 05/31/18 04:00 55 05/31/18 03:50 95 26 94 Facial 50 05/31/18 01:20 90 18 95 Facial 50 05/31/18 01:19 90 18 96 Bi-pap 50 05/31/18 01:09 88 19 95 Bi-pap 50 05/31/18 00:00 98.1 92 23 150/84 (106) 95 05/31/18 00:00 92 05/31/18 00:00 55 05/31/18 00:00 Venturi Mask 15.0 05/30/18 23:09 91 26 95 Facial 50 05/30/18 21:20 101 24 96 Facial 50 05/30/18 20:00 101 05/30/18 20:00 15.0 05/30/18 20:00 97.9 102 23 142/94 (110) 94 05/30/18 20:00 Venturi Mask 15.0 05/30/18 19:21 102 20 95 Venturi Mask 15.0 55 05/30/18 19:08 95 22 97 Venturi Mask 14.0 55 05/30/18 16:00 15.0 55 05/30/18 16:00 107 05/30/18 16:00 Venturi Mask 15.0 05/30/18 16:00 99.3 108 146/74 (98) 05/30/18 13:08 Venturi Mask 14.0 55 05/30/18 13:08 Venturi Mask 14.0 55 05/30/18 12:00 15.0 55 05/30/18 12:00 Venturi Mask 15.0 05/30/18 12:00 99.0 115 31 148/83 (104) 94 05/30/18 12:00 105 05/30/18 11:02 99.0 Intake and Output 05/30/18 05/31/18 19:00 07:00 Intake Total 1475 ml 675 ml Output Total 700 ml 350 ml Balance 775 ml 325 ml Intake Free Water 160 ml 100 ml IV Total 655 ml 410 ml Tube Feeding 660 ml 165 ml Output Urine Total 700 ml 350 ml Height (Feet): 5 Height (Inches): 5.00 Weight (Pounds): 172 Objective Neck: non-tender, supple Cardiovascular: normal rate, regular rhythm Respiratory/Chest: decreased breath sounds Abdomen: non tender, soft Extremities: non-tender Edema: trace edema Skin: warm/dry Anjum Dumont May 31, 2018 08:52
--- NOTE | 2018-05-31 09:05 | Infectious Diseases Prog Note ---
Assessment/Plan Assessment/Plan A; Chronic obstructive pulmonary disease exacerbation, leukocytosis; schizoaffective disorder, hypothyroidism, hyperlipidemia, hypertension. Positive blood culture with CoANS P: Continue Zithromax & Meropenem F/U CBC Subjective ROS Limited/Unobtainable: Yes Constitutional: Reports: other - looks better Neurologic: Reports: other - more communicative today Allergies: Coded Allergies: No Known Allergies (Unverified , 05/22/18) Objective Vital Signs Last 24 Hour Vital Signs Date Time Temp Pulse Resp B/P (MAP) Pulse Ox O2 Delivery O2 Flow Rate FiO2 05/31/18 08:00 14.0 55 05/31/18 08:00 Venturi Mask 14.0 05/31/18 07:54 97.7 111 32 138/88 (105) 94 05/31/18 07:51 110 25 94 Venturi Mask 15.0 55 05/31/18 07:51 110 25 94 Venturi Mask 14.0 55 05/31/18 07:41 108 29 93 Venturi Mask 14.0 55 05/31/18 07:41 108 29 93 Venturi Mask 14.0 55 05/31/18 04:00 97.9 93 27 148/86 (106) 94 05/31/18 04:00 Venturi Mask 15.0 05/31/18 04:00 99 05/31/18 04:00 55 05/31/18 03:50 95 26 94 Facial 50 05/31/18 01:20 90 18 95 Facial 50 05/31/18 01:19 90 18 96 Bi-pap 50 05/31/18 01:09 88 19 95 Bi-pap 50 05/31/18 00:00 98.1 92 23 150/84 (106) 95 05/31/18 00:00 92 05/31/18 00:00 55 05/31/18 00:00 Venturi Mask 15.0 05/30/18 23:09 91 26 95 Facial 50 05/30/18 21:20 101 24 96 Facial 50 05/30/18 20:00 101 05/30/18 20:00 15.0 05/30/18 20:00 97.9 102 23 142/94 (110) 94 05/30/18 20:00 Venturi Mask 15.0 05/30/18 19:21 102 20 95 Venturi Mask 15.0 55 05/30/18 19:08 95 22 97 Venturi Mask 14.0 55 05/30/18 16:00 15.0 55 05/30/18 16:00 107 05/30/18 16:00 Venturi Mask 15.0 05/30/18 16:00 99.3 108 146/74 (98) 05/30/18 13:08 Venturi Mask 14.0 55 05/30/18 13:08 Venturi Mask 14.0 55 05/30/18 12:00 15.0 55 05/30/18 12:00 Venturi Mask 15.0 05/30/18 12:00 99.0 115 31 148/83 (104) 94 05/30/18 12:00 105 05/30/18 11:02 99.0 Height (Feet): 5 Height (Inches): 5.00 Weight (Pounds): 172 HEENT: mucous membranes moist, other - oxygen by mask Respiratory/Chest: decreased breath sounds Cardiovascular: tachycardia Abdomen: soft, non tender, other - NG tube feeding Extremities: no edema Neurologic/Psychiatric: alert, responsive Current Medications Medications (Trade) Dose Ordered Sig/Salty Route PRN Reason Start Time Stop Time Status Last Admin Dose Admin Acetaminophen (Tylenol) 500 mg Q4H PRN NG Mild Pain/Temp > 100.5 05/27/18 13:09 06/22/18 13:08 05/30/18 10:32 Acetylcysteine (Mucomyst) 100 mg TIDRT HHN 05/25/18 13:00 06/24/18 12:59 05/31/18 07:41 Albuterol/ Ipratropium (Albuterol/ Ipratropium) 3 ml Q4H PRN HHN Shortness of Breath 05/28/18 22:00 06/02/18 21:59 05/29/18 08:26 Albuterol/ Ipratropium (Albuterol/ Ipratropium) 3 ml Q6HRT HHN 05/29/18 13:00 06/03/18 12:59 05/31/18 07:41 Azithromycin (Zithromax) 250 mg DAILY NG 05/31/18 09:00 06/07/18 08:59 05/31/18 08:17 Fluoxetine HCl (PROzac) 20 mg DAILY NG 05/28/18 09:00 06/22/18 11:44 05/31/18 08:17 Heparin Sodium (Porcine) (Heparin 5000 units/ml) 5,000 units EVERY 12 HOURS SUBQ 05/22/18 21:00 06/21/18 20:59 05/31/18 08:18 Hydralazine HCl (Apresoline) 10 mg Q4H PRN IV SBP > 170mmHg 05/29/18 16:45 06/28/18 16:44 Iopamidol (Isovue-370 150ml) 150 ml NOW PRN INJ Radiology Procedure 05/29/18 11:30 05/31/18 11:26 Meropenem 1 gm/ Sodium Chloride 55 ml @ 110 mls/hr Q8HR IVPB 05/29/18 14:00 06/03/18 13:59 05/31/18 05:11 Methylprednisolone Sodium Succinate (Solu-MEDROL) 40 mg DAILY IVP 05/30/18 09:00 06/23/18 08:59 05/31/18 08:16 Olanzapine (ZyPREXA) 15 mg BEDTIME NG 05/29/18 21:00 06/28/18 20:59 05/30/18 20:48 Migel Cohen MD May 31, 2018 09:05
--- NOTE | 2018-05-31 10:01 | Pulmonology Progress Note ---
Assessment/Plan Problems: (1) COPD exacerbation (2) Hypercapnic respiratory failure, chronic (3) Hypoxia (4) Benzodiazepine dependence (5) Hypercarbia (6) Schizoaffective disorder Assessment/Plan ASSESSMENT: The patient is a 67-year-old female smoker with history of chronic obstructive pulmonary disease, assisted living resident, hypertension, hyperlipidemia, hypothyroidism, presenting after a fall, respiratory distress, likely exacerbation of chronic obstructive pulmonary disease and urinary tract infection. PROBLEM LIST: 1. Acute on chronic hypercapnic respiratory failure. 2. Chronic obstructive pulmonary disease with acute exacerbation. 3. Urinary tract infection ( alpha hemolytic strep) 4. CoNS in blood likely contaminant 5. Leukocytosis secondary to above and steroids 6. Questionable fall. 7. History of psychiatric disorder. 8. Hypertension, hyperlipidemia, hypothyroidism. 9. Mild elevation of D-dimer. 10. Erythrocytosis & likely hemoconcentration 11. Elevated BUN TREATMENT PLAN: 1. ABG 2. CT CAP 3. Optimize pulmonary hygiene/mobilize as tolerated. 4. BiPAP 12/5 qHS and PRN 5. Titrate FiO2 to keep saturations greater than 90%. 6. RTC and PRN DuoNeb + MUCOMYST + CPT 7. Decrease SM to 30 IV qDaily (D8) 8. Abx per ID 9. NPO while on BiPAP, once off we will advance diet cautiously with aspiration precautions. 10. Monitor volumes and renal function, diuretics held, ? IVF - will d/w renal Re: uremia 11. Check FOBT 12. DVT prophylaxis with heparin subcutaneous. 13. F/U neuro & psych recs, monitor MS, minimize sedative 14. The patient should have outpatient workup including pulmonary function tests Subjective Allergies: Coded Allergies: No Known Allergies (Unverified , 05/22/18) Subjective AFVSS barely arousable WCT 20 BUN 70 H/H 20/60 Barely using BiPAP @ night on HFO2/VM No cough + SOB no wheezing no CP no FC Objective Last 24 Hour Vital Signs Date Time Temp Pulse Resp B/P (MAP) Pulse Ox O2 Delivery O2 Flow Rate FiO2 05/31/18 08:00 14.0 55 05/31/18 08:00 Venturi Mask 14.0 05/31/18 07:54 97.7 111 32 138/88 (105) 94 05/31/18 07:51 110 25 94 Venturi Mask 15.0 55 05/31/18 07:51 110 25 94 Venturi Mask 14.0 55 05/31/18 07:41 108 29 93 Venturi Mask 14.0 55 05/31/18 07:41 108 29 93 Venturi Mask 14.0 55 05/31/18 04:00 97.9 93 27 148/86 (106) 94 05/31/18 04:00 Venturi Mask 15.0 05/31/18 04:00 99 05/31/18 04:00 55 05/31/18 03:50 95 26 94 Facial 50 05/31/18 01:20 90 18 95 Facial 50 05/31/18 01:19 90 18 96 Bi-pap 50 05/31/18 01:09 88 19 95 Bi-pap 50 05/31/18 00:00 98.1 92 23 150/84 (106) 95 05/31/18 00:00 92 05/31/18 00:00 55 05/31/18 00:00 Venturi Mask 15.0 05/30/18 23:09 91 26 95 Facial 50 05/30/18 21:20 101 24 96 Facial 50 05/30/18 20:00 101 05/30/18 20:00 15.0 05/30/18 20:00 97.9 102 23 142/94 (110) 94 05/30/18 20:00 Venturi Mask 15.0 05/30/18 19:21 102 20 95 Venturi Mask 15.0 55 05/30/18 19:08 95 22 97 Venturi Mask 14.0 55 05/30/18 16:00 15.0 55 05/30/18 16:00 107 05/30/18 16:00 Venturi Mask 15.0 05/30/18 16:00 99.3 108 146/74 (98) 05/30/18 13:08 Venturi Mask 14.0 55 05/30/18 13:08 Venturi Mask 14.0 55 05/30/18 12:00 15.0 55 05/30/18 12:00 Venturi Mask 15.0 05/30/18 12:00 99.0 115 31 148/83 (104) 94 05/30/18 12:00 105 05/30/18 11:02 99.0 Intake and Output 05/30/18 05/31/18 19:00 07:00 Intake Total 1475 ml 675 ml Output Total 700 ml 350 ml Balance 775 ml 325 ml Intake Free Water 160 ml 100 ml IV Total 655 ml 410 ml Tube Feeding 660 ml 165 ml Output Urine Total 700 ml 350 ml General Appearance: other - obtunded HEENT: normocephalic, atraumatic Respiratory/Chest: rhonchi Cardiovascular: normal peripheral pulses, normal rate, regular rhythm Abdomen: normal bowel sounds, soft, non tender, no organomegaly, non distended Extremities: no cyanosis, no clubbing, no edema Current Medications Medications (Trade) Dose Ordered Sig/Salty Route PRN Reason Start Time Stop Time Status Last Admin Dose Admin Acetaminophen (Tylenol) 500 mg Q4H PRN NG Mild Pain/Temp > 100.5 05/27/18 13:09 06/22/18 13:08 05/30/18 10:32 Acetylcysteine (Mucomyst) 100 mg TIDRT HHN 05/25/18 13:00 06/24/18 12:59 05/31/18 07:41 Albuterol/ Ipratropium (Albuterol/ Ipratropium) 3 ml Q4H PRN HHN Shortness of Breath 05/28/18 22:00 06/02/18 21:59 05/29/18 08:26 Albuterol/ Ipratropium (Albuterol/ Ipratropium) 3 ml Q6HRT HHN 05/29/18 13:00 06/03/18 12:59 05/31/18 07:41 Azithromycin (Zithromax) 250 mg DAILY NG 05/31/18 09:00 06/07/18 08:59 05/31/18 08:17 Fluoxetine HCl (PROzac) 20 mg DAILY NG 05/28/18 09:00 06/22/18 11:44 05/31/18 08:17 Heparin Sodium (Porcine) (Heparin 5000 units/ml) 5,000 units EVERY 12 HOURS SUBQ 05/22/18 21:00 06/21/18 20:59 05/31/18 08:18 Hydralazine HCl (Apresoline) 10 mg Q4H PRN IV SBP > 170mmHg 05/29/18 16:45 06/28/18 16:44 Iopamidol (Isovue-370 150ml) 150 ml NOW PRN INJ Radiology Procedure 2/11/19 11:30 05/31/18 11:26 Meropenem 1 gm/ Sodium Chloride 55 ml @ 110 mls/hr Q8HR IVPB 05/29/18 14:00 06/03/18 13:59 05/31/18 05:11 Methylprednisolone Sodium Succinate (Solu-MEDROL) 40 mg DAILY IVP 05/30/18 09:00 06/23/18 08:59 05/31/18 08:16 Olanzapine (ZyPREXA) 15 mg BEDTIME NG 05/29/18 21:00 06/28/18 20:59 05/30/18 20:48 Rory Membreno MD May 31, 2018 10:01
--- NOTE | 2018-05-31 10:07 | NUR ---
NURSE NOTES: Spoke with Dr. Dutta regarding speech therapist was not able to do speech evaluation due to condition of the patient. Dr. Dutta said to keep NGT feeding for now and hold during BIPAP using. Order carried out.
--- NOTE | 2018-05-31 10:30 | NUR ---
ST NOTE: SWALLOW STATUS PT SEEN AT BEDSIDE IN AM. SLIGHTLY CONFUSED BUT ABLE TO UNDERSTAND SIMPLE QUESTIONS. PT IS STILL ON THE VENTURI MASK(14L, FIO2:55%). PER PT, STILL HAS DIFFICULTY OF BREATHING. RR: IN HIGH 20s TO MID 30s. COMPLETED ORAL CARE. PT IS NOT READY FOR VIDEOSWALLOW STUDY, PO TRIAL OR DIET AT THIS TIME DUE TO RESPIRATORY ISSUE. IF PT'S CONDITIONS DOESN'T IMPROVE, LONG-TERM NONORAL FEEDING SHOULD BE CONSIDERED. WILL FOLLOW UP. DISCUSSED WITH RNDWAYNE RE:PT'S CONDITIONS.
[2018-05-31 11:46] VITALS: BP 146/87
--- NOTE | 2018-05-31 12:43 | General Progress Note ---
Assessment/Plan Problem List: (1) Schizoaffective disorder ICD Codes: F25.9 - Schizoaffective disorder, unspecified SNOMED: 54333147 (2) Acute metabolic encephalopathy ICD Codes: G93.41 - Metabolic encephalopathy SNOMED: 30831147, 309121556 Assessment/Plan cont prozac 20mg po qam cont zyprexa 15mg po qhs provided ro/st the pt lacks capacity to sign consent forms Subjective Neurologic/Psychiatric: Reports: anxiety Allergies: Coded Allergies: No Known Allergies (Unverified , 05/22/18) Subjective the pt is agitated the pt is more confused the pt has waxing and waning of consciousness/more alert today no bm for the past several days Objective Last 24 Hour Vital Signs Date Time Temp Pulse Resp B/P (MAP) Pulse Ox O2 Delivery O2 Flow Rate FiO2 05/31/18 12:00 14.0 55 05/31/18 12:00 Venturi Mask 14.0 05/31/18 11:46 97.3 102 30 146/87 (106) 92 05/31/18 08:00 108 05/31/18 08:00 14.0 55 05/31/18 08:00 Venturi Mask 14.0 05/31/18 07:54 97.7 111 32 138/88 (105) 94 05/31/18 07:51 110 25 94 Venturi Mask 15.0 55 05/31/18 07:51 110 25 94 Venturi Mask 14.0 55 05/31/18 07:41 108 29 93 Venturi Mask 14.0 55 05/31/18 07:41 108 29 93 Venturi Mask 14.0 55 05/31/18 04:00 97.9 93 27 148/86 (106) 94 05/31/18 04:00 Venturi Mask 15.0 05/31/18 04:00 99 05/31/18 04:00 55 05/31/18 03:50 95 26 94 Facial 50 05/31/18 01:20 90 18 95 Facial 50 05/31/18 01:19 90 18 96 Bi-pap 50 05/31/18 01:09 88 19 95 Bi-pap 50 05/31/18 00:00 98.1 92 23 150/84 (106) 95 05/31/18 00:00 92 05/31/18 00:00 55 05/31/18 00:00 Venturi Mask 15.0 05/30/18 23:09 91 26 95 Facial 50 05/30/18 21:20 101 24 96 Facial 50 05/30/18 20:00 101 05/30/18 20:00 15.0 05/30/18 20:00 97.9 102 23 142/94 (110) 94 05/30/18 20:00 Venturi Mask 15.0 05/30/18 19:21 102 20 95 Venturi Mask 15.0 55 05/30/18 19:08 95 22 97 Venturi Mask 14.0 55 05/30/18 16:00 15.0 55 05/30/18 16:00 107 05/30/18 16:00 Venturi Mask 15.0 05/30/18 16:00 99.3 108 146/74 (98) 05/30/18 13:08 Venturi Mask 14.0 55 05/30/18 13:08 Venturi Mask 14.0 55 Intake and Output 05/30/18 05/31/18 19:00 07:00 Intake Total 1475 ml 675 ml Output Total 700 ml 350 ml Balance 775 ml 325 ml Intake Free Water 160 ml 100 ml IV Total 655 ml 410 ml Tube Feeding 660 ml 165 ml Output Urine Total 700 ml 350 ml Laboratory Tests 05/31/18 10:12: Arterial Blood pH 7.431, Arterial Blood Partial Pressure CO2 56.1*H, Arterial Blood Partial Pressure O2 66.3L, Arterial Blood HCO3 36.5H, Arterial Blood Oxygen Saturation 92.9L, Arterial Blood Base Excess 9.2*H, Rahul Test Positive Height (Feet): 5 Height (Inches): 5.00 Weight (Pounds): 172 General Appearance: alert, confused, agitated Reagan Marshall MD May 31, 2018 12:43
--- NOTE | 2018-05-31 13:06 | NUR ---
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 97.3 HR 111 RR 32 B/P 146/87 PH 7.43 PCO2 56.1 PO2 66.3 HCO3 36.5 O2 SAT 92.9 BE 9.2 WBC 20.2 NA 149 BUN 70 IS: SOLU MEDROL IV IVF D5@ 100ML/HR MEROPENEM IV HEPARIN SUBC STEP DOWN UNIT
--- NOTE | 2018-05-31 13:44 | Cardiac Electrophysiology PN ---
Assessment/Plan Assessment/Plan 1. Shortness of breath due to COPD. On and off on BIPAP and Abx per Dr. Membreno Ruled out for MA. EF 65%. May need Tracheostomy. No Significant CHF. 2. Elevated white count, likely pneumonia, on BiPAP. Antibiotic per Dr. Cohen. 3. History of psychosis. 4. Sinus tach due to PNA. No fib DW RN Subjective Subjective On Face Mask in SR off restraints. Objective Last 24 Hour Vital Signs Date Time Temp Pulse Resp B/P (MAP) Pulse Ox O2 Delivery O2 Flow Rate FiO2 05/31/18 13:08 102 30 95 Venturi Mask 14.0 55 05/31/18 13:08 102 30 95 Venturi Mask 15.0 55 05/31/18 12:58 98 30 95 Venturi Mask 14.0 55 05/31/18 12:58 98 30 95 Venturi Mask 14.0 55 05/31/18 12:00 14.0 55 05/31/18 12:00 Venturi Mask 14.0 05/31/18 11:46 97.3 102 30 146/87 (106) 92 05/31/18 08:00 108 05/31/18 08:00 14.0 55 05/31/18 08:00 Venturi Mask 14.0 05/31/18 07:54 97.7 111 32 138/88 (105) 94 05/31/18 07:51 110 25 94 Venturi Mask 15.0 55 05/31/18 07:51 110 25 94 Venturi Mask 14.0 55 05/31/18 07:41 108 29 93 Venturi Mask 14.0 55 05/31/18 07:41 108 29 93 Venturi Mask 14.0 55 05/31/18 04:00 97.9 93 27 148/86 (106) 94 05/31/18 04:00 Venturi Mask 15.0 05/31/18 04:00 99 05/31/18 04:00 55 05/31/18 03:50 95 26 94 Facial 50 05/31/18 01:20 90 18 95 Facial 50 05/31/18 01:19 90 18 96 Bi-pap 50 05/31/18 01:09 88 19 95 Bi-pap 50 05/31/18 00:00 98.1 92 23 150/84 (106) 95 05/31/18 00:00 92 05/31/18 00:00 55 05/31/18 00:00 Venturi Mask 15.0 05/30/18 23:09 91 26 95 Facial 50 05/30/18 21:20 101 24 96 Facial 50 05/30/18 20:00 101 05/30/18 20:00 15.0 05/30/18 20:00 97.9 102 23 142/94 (110) 94 05/30/18 20:00 Venturi Mask 15.0 05/30/18 19:21 102 20 95 Venturi Mask 15.0 55 05/30/18 19:08 95 22 97 Venturi Mask 14.0 55 05/30/18 16:00 15.0 55 05/30/18 16:00 107 05/30/18 16:00 Venturi Mask 15.0 05/30/18 16:00 99.3 108 146/74 (98) Intake and Output 05/30/18 05/31/18 18:59 06:59 Intake Total 1375 ml 775 ml Output Total 700 ml 350 ml Balance 675 ml 425 ml Intake Free Water 160 ml 100 ml IV Total 555 ml 510 ml Tube Feeding 660 ml 165 ml Output Urine Total 700 ml 350 ml Laboratory Tests Test 05/31/18 10:12 Arterial Blood pH 7.431 (7.350-7.450) Arterial Blood Partial Pressure CO2 56.1 mmHg (35.0-45.0) *H Arterial Blood Partial Pressure O2 66.3 mmHg (75.0-100.0) L Arterial Blood HCO3 36.5 mmol/L (22.0-26.0) H Arterial Blood Oxygen Saturation 92.9 % (95-100) L Arterial Blood Base Excess 9.2 (-2-2) *H Rahul Test Positive Objective HEAD AND NECK: No JVD on Venturi Mask LUNGS: Coarse rhonchi. CARDIOVASCULAR: Regular S1 and S2 no M/G/R ABDOMEN: Soft. EXTREMITIES: No pitting edema. Zane Ocampo MD May 31, 2018 13:44
--- NOTE | 2018-05-31 14:08 | Nephrology Progress Note ---
Assessment/Plan Problem List: (1) Proteinuria (2) Hypoalbuminemia (3) COPD exacerbation (4) Schizoaffective disorder (5) Azotemia Assessment rissing BUN and Hgb admitted with exacerbation COPD and Hypoxia High WBCs : UTI , Pneumonia Proteinuria and HypoAlbuminemia Plan stop Lasix D5w 100 cc hourly doing poorly MS down multifactorial BIPAP Antibiotics 24 h urine proteins CAN NOT BE COLLECTED UNLESS FOLEY_ WILL DEFER 2D echo Left ventricular ejection fraction grossly estimated to be 65 %. optimize cardiac status Subjective ROS Limited/Unobtainable: No Objective Objective Last 24 Hour Vital Signs Date Time Temp Pulse Resp B/P (MAP) Pulse Ox O2 Delivery O2 Flow Rate FiO2 05/31/18 13:08 102 30 95 Venturi Mask 14.0 55 05/31/18 13:08 102 30 95 Venturi Mask 15.0 55 05/31/18 12:58 98 30 95 Venturi Mask 14.0 55 05/31/18 12:58 98 30 95 Venturi Mask 14.0 55 05/31/18 12:00 14.0 55 05/31/18 12:00 Venturi Mask 14.0 05/31/18 11:46 97.3 102 30 146/87 (106) 92 05/31/18 08:00 108 05/31/18 08:00 14.0 55 05/31/18 08:00 Venturi Mask 14.0 05/31/18 07:54 97.7 111 32 138/88 (105) 94 05/31/18 07:51 110 25 94 Venturi Mask 15.0 55 05/31/18 07:51 110 25 94 Venturi Mask 14.0 55 05/31/18 07:41 108 29 93 Venturi Mask 14.0 55 05/31/18 07:41 108 29 93 Venturi Mask 14.0 55 05/31/18 04:00 97.9 93 27 148/86 (106) 94 05/31/18 04:00 Venturi Mask 15.0 05/31/18 04:00 99 05/31/18 04:00 55 05/31/18 03:50 95 26 94 Facial 50 05/31/18 01:20 90 18 95 Facial 50 05/31/18 01:19 90 18 96 Bi-pap 50 05/31/18 01:09 88 19 95 Bi-pap 50 05/31/18 00:00 98.1 92 23 150/84 (106) 95 05/31/18 00:00 92 05/31/18 00:00 55 05/31/18 00:00 Venturi Mask 15.0 05/30/18 23:09 91 26 95 Facial 50 05/30/18 21:20 101 24 96 Facial 50 05/30/18 20:00 101 05/30/18 20:00 15.0 05/30/18 20:00 97.9 102 23 142/94 (110) 94 05/30/18 20:00 Venturi Mask 15.0 05/30/18 19:21 102 20 95 Venturi Mask 15.0 55 05/30/18 19:08 95 22 97 Venturi Mask 14.0 55 05/30/18 16:00 15.0 55 05/30/18 16:00 107 05/30/18 16:00 Venturi Mask 15.0 05/30/18 16:00 99.3 108 146/74 (98) Intake and Output 05/30/18 05/31/18 19:00 07:00 Intake Total 1475 ml 675 ml Output Total 700 ml 350 ml Balance 775 ml 325 ml Intake Free Water 160 ml 100 ml IV Total 655 ml 410 ml Tube Feeding 660 ml 165 ml Output Urine Total 700 ml 350 ml Laboratory Tests 05/31/18 10:12: Arterial Blood pH 7.431, Arterial Blood Partial Pressure CO2 56.1*H, Arterial Blood Partial Pressure O2 66.3L, Arterial Blood HCO3 36.5H, Arterial Blood Oxygen Saturation 92.9L, Arterial Blood Base Excess 9.2*H, Rahul Test Positive Height (Feet): 5 Height (Inches): 5.00 Weight (Pounds): 172 EENT: other - on BIPAP Cardiovascular: tachycardia Respiratory/Chest: decreased breath sounds Abdomen: distended Objective no change Seamus Morfin MD May 31, 2018 14:08
--- NOTE | 2018-05-31 15:32 | Diagnostic Imaging Report ---
CLINICAL INDICATION:History of chronic obstructive pulmonary disease, trauma, fall, respiratory failure, urinary tract infection, leukocytosis TECHNIQUE: Patient given enteric contrast . No IV contrast utilized, reason not stated Spiral acquisitions obtained through the chest, abdomen, and pelvis. Multiplanar reconstructions were generated. Total dose length product 1184.38 mGycm. CTDIvol(s) 17.18 mGy. Radiation dose was minimized using automated exposure control COMPARISON: Chest compared to CT angiogram of 05/26/2018. No comparison abdomen pelvis CT FINDINGS Chest: There is considerable atelectasis and consolidation in the posterior medial right lower lobe, although this appears less extensive than on the prior study. Atelectatic changes in the left lower lobe are less extensive than on the right, and there is less consolidative change than seen on the previous study. The interstitium appears somewhat less prominent overall as well. No evidence of pleural fluid. Focal consolidation in the posterior right upper lobe has improved. No masses are evident. The heart size is normal. There is minimal anterior wall pericardial thickening versus fluid noted, not definitely evident previously. Prominent but not frankly enlarged right paratracheal node is demonstrated. No definite mediastinal or hilar adenopathy. Included portion of the thyroid is unremarkable. There is a nasogastric tube again demonstrated. The esophagus is unremarkable. No axillary or chest wall mass or adenopathy. The bones demonstrate old healed fracture deformities of the right eighth and ninth ribs. Abdomen pelvis: Nasogastric tube tip terminates in the gastric body antrum junction. There is equivocal mild wall thickening of the gastric antrum, probably just an artifact of under distention. Small bowel loops are nondilated without wall thickening, and contrast has traversed the entirety of the small bowel and reached as far distally as the transverse colon. The appendix is normal. Dense stool is seen in the distal colon. The rectum is mildly distended with stool. No evidence of diverticulosis or diverticulitis. No free or loculated intraperitoneal gas or fluid is evident. Lack of IV contrast limits assessment of the solid organs. The gallbladder contains possible sludge but no definite radiopaque gallstones. The liver, bile ducts, pancreas, spleen, adrenals are unremarkable. The kidneys demonstrate mild nonspecific bilateral perinephric fat stranding. The left kidney demonstrates 3 cysts, one in the upper pole and 2 in the lower pole, one of the lower pole cyst containing a calcified septation. No retroperitoneal or mesenteric mass or adenopathy. Unremarkable uterus and adnexal structures. The bladder is distended. No pelvic mass or adenopathy. The bones are unremarkable except for old ununited fractures of the left L1-L4 transverse processes IMPRESSION: Bilateral lower lobe atelectasis and consolidation, improved since prior study of 05/26/2018 but persistent Minimal anterior wall pericardial thickening versus fluid, not evident previously Nasogastric tube in good position Old healed right rib fracture deformities, as described. 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 No gallstones or biliary ductal dilatation Distended bladder Multiple left renal cysts incidentally noted The CT scanner at [facility] is accredited by the [employer] and the scans are performed using protocols designed to limit radiation exposure to as low as reasonably achievable to attain images of sufficient resolution adequate for diagnostic evaluation.
[2018-05-31 16:00] VITALS: BP 144/84
--- NOTE | 2018-05-31 17:22 | General Progress Note ---
Assessment/Plan Assessment/Plan Assessment and Recs: # Leukocytosis - is likely related to infection/pna --> smear has been reviewed and only 1% metamyelocytes noted, not significant finding --> esr and crp elevated --> wbc trend : 19--> 22--> 21--> 20 --> abx as per Dr. Cohen, currently on cefepime # Elevated d-dimer - r/o dvt of lower ext --> venous duplex negative scan --> likely elevated due to many possible reasons --> CXR 05/27 Elevated right hemidiaphragm. Bibasilar lung atelectasis. # Hypoxemia potentially copd related --> off bipap at this time --> bipap at night as per pulm # Hypercarbia # Benzodiazepine dependence # Psychosis # Sinus tach --> as per Dr. Ocampo The timing of this note does not necessarily reflect the time of the patient was seen. Greatly appreciate consultation! Subjective Constitutional: Denies: no symptoms, chills, diaphoresis, fever, malaise, weakness, other HEENT: Denies: no symptoms, eye pain, blurred vision, tearing, double vision, ear pain, ear discharge, nose pain, nose congestion, throat pain, throat swelling, mouth pain, mouth swelling, other Cardiovascular: Denies: no symptoms, chest pain, edema, irregular heart rate, lightheadedness, palpitations, syncope, other Respiratory: Denies: no symptoms, cough, orthopnea, shortness of breath, SOB with excertion, SOB at rest, sputum, stridor, wheezing, other Gastrointestinal/Abdominal: Denies: no symptoms, abdomen distended, abdominal pain, black stools, tarry stools, blood in stool, constipated, diarrhea, difficulty swallowing, nausea, poor appetite, poor fluid intake, rectal bleeding , vomiting, other Genitourinary: Denies: no symptoms, burning, discharge, frequency, flank pain, hematuria, incontinence, pain, urgency, other Neurologic/Psychiatric: Denies: no symptoms, anxiety, depressed, emotional problems, headache, numbness, paresthesia, pre-existing deficit, seizure, tingling, tremors, weakness, other Endocrine: Denies: no symptoms, excessive sweating, flushing, intolerance to cold, intolerance to heat, increased hunger, increased thirst, increased urine, unexplained weight gain, unexplained weight loss, other Hematologic/Lymphatic: Denies: no symptoms, anemia, easy bleeding, easy bruising, other Allergies: Coded Allergies: No Known Allergies (Unverified , 05/22/18) Subjective 05/23: on venturi mask, no new changes, mild fever today, no chills 05/24: Pt is seen by bedside, awake, comfortable, wbc trending up 05/25: hgb and wbc trending up, seen in the room, awake, bipap, no fevers or cills , 05/26: no new changes, no fever, no chills, Back on BIPAP 05/29:seen by bedside in restraints. BP is elevated, CXR is reviewed, no acute findings, hgb trending up. 05/30: awake, comfortable, no acute distress, wbc 20, hgb still trending up at 19 today. 05/31: seen by bedside, awake, comfortable, no acute distress, Objective Last 24 Hour Vital Signs Date Time Temp Pulse Resp B/P (MAP) Pulse Ox O2 Delivery O2 Flow Rate FiO2 05/31/18 16:00 97.6 99 29 144/84 (104) 92 05/31/18 16:00 Venturi Mask 14.0 05/31/18 16:00 14.0 55 05/31/18 15:58 94 05/31/18 13:08 102 30 95 Venturi Mask 14.0 55 05/31/18 13:08 102 30 95 Venturi Mask 15.0 55 05/31/18 12:58 98 30 95 Venturi Mask 14.0 55 05/31/18 12:58 98 30 95 Venturi Mask 14.0 55 05/31/18 12:00 14.0 55 05/31/18 12:00 97 05/31/18 12:00 Venturi Mask 14.0 05/31/18 11:46 97.3 102 30 146/87 (106) 92 05/31/18 08:00 108 05/31/18 08:00 14.0 55 05/31/18 08:00 Venturi Mask 14.0 05/31/18 07:54 97.7 111 32 138/88 (105) 94 05/31/18 07:51 110 25 94 Venturi Mask 15.0 55 05/31/18 07:51 110 25 94 Venturi Mask 14.0 55 05/31/18 07:41 108 29 93 Venturi Mask 14.0 55 05/31/18 07:41 108 29 93 Venturi Mask 14.0 55 05/31/18 04:00 97.9 93 27 148/86 (106) 94 05/31/18 04:00 Venturi Mask 15.0 05/31/18 04:00 99 05/31/18 04:00 55 05/31/18 03:50 95 26 94 Facial 50 05/31/18 01:20 90 18 95 Facial 50 05/31/18 01:19 90 18 96 Bi-pap 50 05/31/18 01:09 88 19 95 Bi-pap 50 05/31/18 00:00 98.1 92 23 150/84 (106) 95 05/31/18 00:00 92 05/31/18 00:00 55 05/31/18 00:00 Venturi Mask 15.0 05/30/18 23:09 91 26 95 Facial 50 05/30/18 21:20 101 24 96 Facial 50 05/30/18 20:00 101 05/30/18 20:00 15.0 05/30/18 20:00 97.9 102 23 142/94 (110) 94 05/30/18 20:00 Venturi Mask 15.0 05/30/18 19:21 102 20 95 Venturi Mask 15.0 55 05/30/18 19:08 95 22 97 Venturi Mask 14.0 55 Intake and Output 05/30/18 05/31/18 18:59 06:59 Intake Total 1375 ml 775 ml Output Total 700 ml 350 ml Balance 675 ml 425 ml Intake Free Water 160 ml 100 ml IV Total 555 ml 510 ml Tube Feeding 660 ml 165 ml Output Urine Total 700 ml 350 ml Laboratory Tests 05/31/18 10:12: Arterial Blood pH 7.431, Arterial Blood Partial Pressure CO2 56.1*H, Arterial Blood Partial Pressure O2 66.3L, Arterial Blood HCO3 36.5H, Arterial Blood Oxygen Saturation 92.9L, Arterial Blood Base Excess 9.2*H, Rahul Test Positive Height (Feet): 5 Height (Inches): 5.00 Weight (Pounds): 172 Objective General Appearance: no apparent distress, GCS 15, non-toxic, other - sleepy Head: normocephalic, atraumatic Eyes: bilateral eye normal inspection, bilateral eye PERRL ENT: hearing grossly normal, normal pharynx, no angioedema, normal voice Neck: full range of motion, supple/symm/no masses Respiratory: chest non-tender, lungs clear, normal breath sounds Cardiovascular: regular rate, rhythm, no edema Gastrointestinal: normal bowel sounds, non tender Musculoskeletal: back normal, gait/station normal Jorje Troy MD May 31, 2018 17:22
--- NOTE | 2018-05-31 19:09 | Neurology Progress Note ---
Interim History Interim History Interim History Ms. Whitfield feels better. She is significantly more alert and brighter today. She feels that her mind is clearer. She feels stronger. She is on a O2 mask. She feels that her mouth is dry and would like to drink some water. She is not delusional. She denies any new neurologic symptoms. She is less forgetful. She is much more cooperative. Review of Systems Neuro Review of Systems Benign. Objective Physical Exam Last Vital Signs Date Time Temp Pulse Resp B/P (MAP) Pulse Ox O2 Delivery O2 Flow Rate FiO2 05/31/18 16:00 97.6 99 29 144/84 (104) 92 05/31/18 16:00 Venturi Mask 14.0 05/31/18 16:00 55 Laboratory Tests Test 05/31/18 10:12 Arterial Blood pH 7.431 (7.350-7.450) Arterial Blood Partial Pressure CO2 56.1 mmHg (35.0-45.0) *H Arterial Blood Partial Pressure O2 66.3 mmHg (75.0-100.0) L Arterial Blood HCO3 36.5 mmol/L (22.0-26.0) H Arterial Blood Oxygen Saturation 92.9 % (95-100) L Arterial Blood Base Excess 9.2 (-2-2) *H Rahul Test Positive Neurologic Exam Objective PHYSICAL EXAMINATION: GENERAL: She is a well-developed, well-nourished, pleasant lady, lying in bed. HEAD: Normocephalic and atraumatic. EENT: Examination benign NECK: No neck rigidity was observed. NEUROLOGICAL EXAMINATION: MENTAL STATUS EXAMINATION: She was awake and alert. She was oriented to self, [facility]. She was able to recall 3/3 words immediately and could remember 2/3 after 1 minute and after 3 minutes. She was able to remember president Trump and Obama only. Her mathematical skills were impaired. Her visuospatial function was also impaired. SPEECH: She had a mild dysarthria. LANGUAGE: She had a mild anomia for low-frequency words. CRANIAL NERVE EXAMINATION: II: The visual beltran were intact on confrontation testing. III, IV & : The external ocular movements were full and the pupils 3 mm in diameter, equal, round, regular, and reactive to light. V: She had normal facial sensations, and the temporales, masseters, and pterygoids functioned normally. VII: She had normal facial expressions and no facial asymmetry. VIII: She was able to hear well bilaterally and had no nystagmus. IX: The palate moved symmetrically on phonation. X: She had no hoarseness of voice. XI: The sternocleidomastoids and trapezii functioned normally. XII: The tongue was in the midline without any fasciculations or atrophy. MOTOR SYSTEM: The tone was normal in all four extremities. Examination of muscle mass revealed no focal wasting. Examination of power revealed G 5/5 power in the upper extremities. She also had G 5/5 in the lower extremities except for G 5-/5 in the iliopsoas. SENSORY EXAMINATION: She had intact sensations to light touch but did not cooperate for further sensory testing. COORDINATION: She performed well on [id number] testing. She was unable to perform [id number] testing. REFLEXES: 1+ and bilaterally symmetrical at the biceps, triceps, brachioradialis, and knees, 0 at both ankles. The plantar responses were flexor bilaterally. STANCE: Could not be tested. GAIT: Could not be tested. Impression/Recommendations Diagnostic Impression 1. Ms Leigh Ann Whiftield is a 67-year-old, right-handed, lady, who does have a past history of hypertension, dyslipidemia, chronic obstructive pulmonary disease, hypothyroidism, schizoaffective disorder, and recent falls, who was hospitalized on 05/22/2018 for an altered mental state and a fall at her [facility]. She was found to be hypoxic, hypercapnic, and had a significant leukocytosis. Since she has been in the hospital, she has improved. 2. She feels better. She is significantly more alert and brighter today. She feels that her mind is clearer. She feels stronger. She is on a O2 mask. She feels that her mouth is dry and would like to drink some water. She is not delusional. She denies any new neurologic symptoms. She is less forgetful. She is much more cooperative. 3. On neurological examination, at this time, she is disoriented to the date and year. Has problems with recent and remote memory, visuospatial function and higher cognitive function. Has a dysarthric speech, has a mild anomia, has proximal lower extremities weakness, an has globally diminished deep tendon reflexes. 4. Laboratory data on my initial evaluation revealed that she had a significant leukocytosis with a WBC count of 19,700. Her chemistry panel revealed that her uric acid level was elevated at 8.2, magnesium was low at 1.6. ProBNP that was elevated at 186, albumin was low at 2.5. Her B12 level was normal at 924. Her folate level was normal at 40.6. Her TSH was normal at 1.92 with a free T4 of 1.13. The Hemoglobin A1c was at 6%. Latest arterial blood gas revealed a pH at 7.37, pCO2 at 62, and pO2 at 56. Her urinalysis revealed 1+ leukocyte esterase, 0-2 red blood cells, and 2-4 white blood cells per high-power field. 5. Further laboratory tests have revealed a minimally elevated ammonia at 34. 6. The last ABG done on 05/29/18 revealed a pH of 7.39, elevated pCO2 at 64 and low pO2 at 74. 7. She continues to have a significant leukocytosis with a WBC count of 20,200 on 05/29/18. 8. The CT scan of the brain without contrast revealed atrophy and some deep white matter changes, but no acute pathology. 9. The EGG done on 05/24/18 was normal in the awake and drowsy states. 10. The patient's history, neurological examination, laboratory data, and imaging studies are most compatible with a toxic metabolic encephalopathy related to the hypoxia, hypercapnia, and an infectious process. Her encephalopathy is better today. 11. She is not psychotic today. Recommendations 1. Continue present management. 2. Aggressive treatment of the patient's respiratory failure as per Dr. Membreno. 3. Aggressive treatment of the patient's infectious process as per Dr. Cohen. 4. Correction of fluid and electrolyte status. 5. Observe closely. Fransico Bolton M.D., M.S.P.H. Fransico Bolton MD May 31, 2018 19:09
--- NOTE | 2018-05-31 19:22 | NUR ---
HAND-OFF: Report given to RAUL Adams. Stable condition.
--- NOTE | 2018-05-31 19:23 | NUR ---
NURSE NOTES: Report received from RAUL Charles. Observed pt lying on the bed. Awake and answers questions. Denies pain at this time. SR with child monitor. On Ventri mask 55%. NGT on R nares, running Glucerna 1.2 at 55cc/hr. IV R AC 20G running D5W at 100cc/hr. Bed in the lowest position. Side rails up x3. Will continue to monitor.
[2018-05-31 20:00] VITALS: BP 142/78
[2018-05-31] MEDS: OLANZapine 10mg tab NG SCH (20:46)
--- NOTE | 2018-05-31 21:16 | General Progress Note ---
Assessment/Plan Problem List: (1) Hypoxia ICD Codes: R09.02 - Hypoxemia SNOMED: 361673179 (2) COPD exacerbation ICD Codes: J44.1 - Chronic obstructive pulmonary disease with (acute) exacerbation SNOMED: 259217640 (3) Hypercapnic respiratory failure, chronic ICD Codes: J96.12 - Chronic respiratory failure with hypercapnia SNOMED: 762281340 (4) Hypoxemia ICD Codes: R09.02 - Hypoxemia SNOMED: 700897427 (5) Benzodiazepine dependence ICD Codes: F13.20 - Sedative, hypnotic or anxiolytic dependence, uncomplicated SNOMED: 826586874 (6) Hypoalbuminemia ICD Codes: E88.09 - Other disorders of plasma-protein metabolism, not elsewhere classified SNOMED: 753379588 Status: unchanged Assessment/Plan not much changed from yesterday on high oxygen requirement still confused and lethargic on nonrebreath continue suction copd exacerbation worsening renal failure iv hydration per renal very concerned about her condition still lethargic will discuss w renal and pulmonary Subjective Allergies: Coded Allergies: No Known Allergies (Unverified , 05/22/18) Subjective lehtargic sob Objective Last 24 Hour Vital Signs Date Time Temp Pulse Resp B/P (MAP) Pulse Ox O2 Delivery O2 Flow Rate FiO2 05/31/18 20:00 97.7 79 26 142/78 (99) 95 05/31/18 19:44 84 20 94 Venturi Mask 14.0 55 05/31/18 19:20 82 22 95 Venturi Mask 14.0 55 05/31/18 16:00 97.6 99 29 144/84 (104) 92 05/31/18 16:00 Venturi Mask 14.0 05/31/18 16:00 14.0 55 05/31/18 15:58 94 05/31/18 13:08 102 30 95 Venturi Mask 14.0 55 05/31/18 13:08 102 30 95 Venturi Mask 15.0 55 05/31/18 12:58 98 30 95 Venturi Mask 14.0 55 05/31/18 12:58 98 30 95 Venturi Mask 14.0 55 05/31/18 12:00 14.0 55 05/31/18 12:00 97 05/31/18 12:00 Venturi Mask 14.0 05/31/18 11:46 97.3 102 30 146/87 (106) 92 05/31/18 08:00 108 05/31/18 08:00 14.0 55 05/31/18 08:00 Venturi Mask 14.0 05/31/18 07:54 97.7 111 32 138/88 (105) 94 05/31/18 07:51 110 25 94 Venturi Mask 15.0 55 05/31/18 07:51 110 25 94 Venturi Mask 14.0 55 05/31/18 07:41 108 29 93 Venturi Mask 14.0 55 05/31/18 07:41 108 29 93 Venturi Mask 14.0 55 05/31/18 04:00 97.9 93 27 148/86 (106) 94 05/31/18 04:00 Venturi Mask 15.0 05/31/18 04:00 99 05/31/18 04:00 55 05/31/18 03:50 95 26 94 Facial 50 05/31/18 01:20 90 18 95 Facial 50 05/31/18 01:19 90 18 96 Bi-pap 50 05/31/18 01:09 88 19 95 Bi-pap 50 05/31/18 00:00 98.1 92 23 150/84 (106) 95 05/31/18 00:00 92 05/31/18 00:00 55 05/31/18 00:00 Venturi Mask 15.0 05/30/18 23:09 91 26 95 Facial 50 05/30/18 21:20 101 24 96 Facial 50 Intake and Output 05/30/18 05/31/18 18:59 06:59 Intake Total 1375 ml 775 ml Output Total 700 ml 350 ml Balance 675 ml 425 ml Intake Free Water 160 ml 100 ml IV Total 555 ml 510 ml Tube Feeding 660 ml 165 ml Output Urine Total 700 ml 350 ml Laboratory Tests 05/31/18 10:12: Arterial Blood pH 7.431, Arterial Blood Partial Pressure CO2 56.1*H, Arterial Blood Partial Pressure O2 66.3L, Arterial Blood HCO3 36.5H, Arterial Blood Oxygen Saturation 92.9L, Arterial Blood Base Excess 9.2*H, Rahul Test Positive Height (Feet): 5 Height (Inches): 5.00 Weight (Pounds): 172 General Appearance: lethargic, confused Respiratory/Chest: rhonchi - bilaterally Margot Dutta MD May 31, 2018 21:16
[2018-06-01] VITALS: BP 128/76
[2018-06-01] MEDS: Albuterol/Ipratropium 3ml neb HHN SCH ×4 (00:31→19:04)
--- NOTE | 2018-06-01 01:00 | NUR ---
NURSE NOTES: Observed pt on bipap 03/22, 40%, saturating at 96%. No acute distress noted at this time. Pt sleeping on the bed. VS within normal range. Will continue to monitor.
[2018-06-01 04:00] VITALS: BP 154/92
[2018-06-01] MEDS: Meropenem 1 GM in NS 55 ML IVPB SCH ×3 (06:04→21:17)
[2018-06-01 06:05] LABS: BASOPHILS % (AUTO) 0.4 % (0.0-2.0); EOSINOPHILS % (AUTO) 0.6 % (0.0-3.0); HEMATOCRIT 53.4 % (37.0-47.0); HEMOGLOBIN 17.4 G/DL (12.0-16.0); LYMPHOCYTES % (AUTO) 23.3 % (20.0-45.0); MEAN CORPUSCULAR VOLUME 95 FL (80-99); MONOCYTES % (AUTO) 7.5 % (1.0-10.0); NEUTROPHILS % (AUTO) 68.2 % (45.0-75.0); PLATELET COUNT 196 K/UL (150-450); RED BLOOD COUNT 5.61 M/UL (4.20-5.40); RED CELL DISTRIBUTION WIDTH 11.8 % (11.6-14.8)
--- NOTE | 2018-06-01 07:59 | NUR ---
NURSE NOTES: Received report RAUL Adams patient asleep on BIPAP,breathing easy,head elevated.on purewick,Iv fluid infusing
[2018-06-01 08:00] VITALS: BP 142/79
--- NOTE | 2018-06-01 08:01 | NUR ---
HAND-OFF: Report given to RAUL Mendez. No acute distress noted at this time. Addendum: 06/01/18 at 0802 by Angie Richards RN Report given to RAUL Hahn.
--- NOTE | 2018-06-01 08:15 | NUR ---
NURSE NOTES: respiratory therapist change to venturi mask 55%
[2018-06-01] MEDS: Heparin 5000 units/ml inj SUBQ SCH ×2 (08:40→20:42)
[2018-06-01] MEDS: Solu-MEDROL 40mg Inj IVP SCH (08:42)
[2018-06-01] MEDS: Azithromycin 250mg tab NG SCH (08:50)
--- NOTE | 2018-06-01 09:04 | General Progress Note ---
Assessment/Plan Assessment/Plan (1) S/p fall (2) COPD Exacerbation (3) OA Patient to be continued on Tylenol D/w Dr. Garcia and he concurred. Subjective Date patient seen: Jun 01, 2018 Time patient seen: 08:45 - am Constitutional: Reports: weakness Neurologic/Psychiatric: Reports: weakness Allergies: Coded Allergies: No Known Allergies (Unverified , 05/22/18) Subjective In bed showing no signs of pain or distress. No pain at this time. Objective Last 24 Hour Vital Signs Date Time Temp Pulse Resp B/P (MAP) Pulse Ox O2 Delivery O2 Flow Rate FiO2 06/01/18 07:53 77 22 95 Bi-pap 40 06/01/18 05:58 75 24 97 Facial 40 06/01/18 04:00 77 06/01/18 04:00 97.6 73 20 154/92 (112) 95 06/01/18 04:00 40 06/01/18 04:00 Venturi Mask 14.0 06/01/18 03:20 75 26 94 Facial 40 06/01/18 00:46 76 24 95 Bi-pap 40 06/01/18 00:32 77 26 96 Bi-pap 40 06/01/18 00:31 77 26 96 Facial 40 06/01/18 00:00 72 06/01/18 00:00 Venturi Mask 14.0 06/01/18 00:00 97.7 69 22 128/76 (93) 96 06/01/18 00:00 40 05/31/18 23:29 80 21 96 Facial 50 05/31/18 20:00 82 05/31/18 20:00 Venturi Mask 14.0 05/31/18 20:00 14.0 55 05/31/18 20:00 97.7 79 26 142/78 (99) 95 05/31/18 19:44 84 20 94 Venturi Mask 14.0 55 05/31/18 19:20 82 22 95 Venturi Mask 14.0 55 05/31/18 16:00 97.6 99 29 144/84 (104) 92 05/31/18 16:00 Venturi Mask 14.0 05/31/18 16:00 14.0 55 05/31/18 15:58 94 05/31/18 13:08 102 30 95 Venturi Mask 14.0 55 05/31/18 13:08 102 30 95 Venturi Mask 15.0 55 05/31/18 12:58 98 30 95 Venturi Mask 14.0 55 05/31/18 12:58 98 30 95 Venturi Mask 14.0 55 05/31/18 12:00 14.0 55 05/31/18 12:00 97 05/31/18 12:00 Venturi Mask 14.0 05/31/18 11:46 97.3 102 30 146/87 (106) 92 Intake and Output 05/31/18 06/01/18 19:00 07:00 Intake Total 1841.6 ml 1220 ml Output Total 800 ml 300 ml Balance 1041.6 ml 920 ml Intake Free Water 260 ml IV Total 921.6 ml 1110 ml Tube Feeding 660 ml 110 ml Output Urine Total 800 ml 300 ml Laboratory Tests 05/31/18 10:12: Arterial Blood pH 7.431, Arterial Blood Partial Pressure CO2 56.1*H, Arterial Blood Partial Pressure O2 66.3L, Arterial Blood HCO3 36.5H, Arterial Blood Oxygen Saturation 92.9L, Arterial Blood Base Excess 9.2*H, Rahul Test Positive 06/01/18 04:25: White Blood Count 14.0H, Red Blood Count 5.61H, Hemoglobin 17.4H, Hematocrit 53.4H, Mean Corpuscular Volume 95, Mean Corpuscular Hemoglobin 31.1H, Mean Corpuscular Hemoglobin Concent 32.6, Red Cell Distribution Width 11.8, Platelet Count 196, Mean Platelet Volume 7.0, Neutrophils (%) (Auto) 68.2, Lymphocytes (% ) (Auto) 23.3, Monocytes (%) (Auto) 7.5, Eosinophils (%) (Auto) 0.6, Basophils ( %) (Auto) 0.4 06/01/18 04:30: Stool Occult Blood [Pending] Height (Feet): 5 Height (Inches): 5.00 Weight (Pounds): 172 Objective Neck: non-tender, supple Cardiovascular: normal rate, regular rhythm Respiratory/Chest: decreased breath sounds Abdomen: non tender, soft Extremities: non-tender Edema: trace edema Skin: warm/dry Anjum Dumont Jun 01, 2018 09:04
--- NOTE | 2018-06-01 09:07 | NUR ---
HAND-OFF: Report given to RAUL Ocampo Patient resting ,on NGT feeding,room air ,O2 saturationm 91%,no distress.
--- NOTE | 2018-06-01 10:13 | Cardiac Electrophysiology PN ---
Assessment/Plan Assessment/Plan 1. Shortness of breath due to COPD. On and off on BIPAP, and Abx per Dr. Membreno Ruled out for [place]. EF 65%. Needs Tracheostomy. No Significant CHF. 2. Elevated white count, likely pneumonia, on BiPAP. Antibiotic per Dr. Cohen. 3. History of psychosis. 4. Sinus tach due to PNA. No fib DW RN and Dr Membreno Subjective Subjective In SR off restraints on Venturi Mask. Was on BIPAP last night again Objective Last 24 Hour Vital Signs Date Time Temp Pulse Resp B/P (MAP) Pulse Ox O2 Delivery O2 Flow Rate FiO2 06/01/18 08:00 98.0 79 20 142/79 (100) 95 06/01/18 07:53 77 22 95 Bi-pap 40 06/01/18 05:58 75 24 97 Facial 40 06/01/18 04:00 77 06/01/18 04:00 97.6 73 20 154/92 (112) 95 06/01/18 04:00 40 06/01/18 04:00 Venturi Mask 14.0 06/01/18 03:20 75 26 94 Facial 40 06/01/18 00:46 76 24 95 Bi-pap 40 06/01/18 00:32 77 26 96 Bi-pap 40 06/01/18 00:31 77 26 96 Facial 40 06/01/18 00:00 72 06/01/18 00:00 Venturi Mask 14.0 06/01/18 00:00 97.7 69 22 128/76 (93) 96 06/01/18 00:00 40 05/31/18 23:29 80 21 96 Facial 50 05/31/18 20:00 82 05/31/18 20:00 Venturi Mask 14.0 05/31/18 20:00 14.0 55 05/31/18 20:00 97.7 79 26 142/78 (99) 95 05/31/18 19:44 84 20 94 Venturi Mask 14.0 55 05/31/18 19:20 82 22 95 Venturi Mask 14.0 55 05/31/18 16:00 97.6 99 29 144/84 (104) 92 05/31/18 16:00 Venturi Mask 14.0 05/31/18 16:00 14.0 55 05/31/18 15:58 94 05/31/18 13:08 102 30 95 Venturi Mask 14.0 55 05/31/18 13:08 102 30 95 Venturi Mask 15.0 55 05/31/18 12:58 98 30 95 Venturi Mask 14.0 55 05/31/18 12:58 98 30 95 Venturi Mask 14.0 55 05/31/18 12:00 14.0 55 05/31/18 12:00 97 05/31/18 12:00 Venturi Mask 14.0 05/31/18 11:46 97.3 102 30 146/87 (106) 92 Intake and Output 05/31/18 06/01/18 19:00 07:00 Intake Total 1841.6 ml 1220 ml Output Total 800 ml 300 ml Balance 1041.6 ml 920 ml Intake Free Water 260 ml IV Total 921.6 ml 1110 ml Tube Feeding 660 ml 110 ml Output Urine Total 800 ml 300 ml Laboratory Tests Test 05/31/18 10:12 06/01/18 04:25 06/01/18 04:30 Arterial Blood pH 7.431 (7.350-7.450) Arterial Blood Partial Pressure CO2 56.1 mmHg (35.0-45.0) *H Arterial Blood Partial Pressure O2 66.3 mmHg (75.0-100.0) L Arterial Blood HCO3 36.5 mmol/L (22.0-26.0) H Arterial Blood Oxygen Saturation 92.9 % (95-100) L Arterial Blood Base Excess 9.2 (-2-2) *H Rahul Test Positive White Blood Count 14.0 K/UL (4.8-10.8) H Red Blood Count 5.61 M/UL (4.20-5.40) H Hemoglobin 17.4 G/DL (12.0-16.0) H Hematocrit 53.4 % (37.0-47.0) H Mean Corpuscular Volume 95 FL (80-99) Mean Corpuscular Hemoglobin 31.1 PG (27.0-31.0) H Mean Corpuscular Hemoglobin Concent 32.6 G/DL (32.0-36.0) Red Cell Distribution Width 11.8 % (11.6-14.8) Platelet Count 196 K/UL (150-450) Mean Platelet Volume 7.0 FL (6.5-10.1) Neutrophils (%) (Auto) 68.2 % (45.0-75.0) Lymphocytes (%) (Auto) 23.3 % (20.0-45.0) Monocytes (%) (Auto) 7.5 % (1.0-10.0) Eosinophils (%) (Auto) 0.6 % (0.0-3.0) Basophils (%) (Auto) 0.4 % (0.0-2.0) Stool Occult Blood Pending Objective HEAD AND NECK: No JVD on Venturi Mask LUNGS: Coarse rhonchi. CARDIOVASCULAR: Regular S1 and S2 no M/G/R ABDOMEN: Soft. EXTREMITIES: No pitting edema. Zane Ocampo MD Jun 01, 2018 10:13
--- NOTE | 2018-06-01 10:15 | NUR ---
NURSE NOTES: Dr. Membreno visited notified ordered to wean patient room air to keep saturation 90 and above,tolerating 90-91,no shortnes of breath
--- NOTE | 2018-06-01 10:38 | Infectious Diseases Prog Note ---
Assessment/Plan Assessment/Plan A; Chronic obstructive pulmonary disease exacerbation, leukocytosis; schizoaffective disorder, hypothyroidism, hyperlipidemia, hypertension. 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 Subjective ROS Limited/Unobtainable: Yes Constitutional: Reports: no symptoms, other - doing better Respiratory: Reports: other - off of oxgen mask Allergies: Coded Allergies: No Known Allergies (Unverified , 05/22/18) Objective Vital Signs Last 24 Hour Vital Signs Date Time Temp Pulse Resp B/P (MAP) Pulse Ox O2 Delivery O2 Flow Rate FiO2 06/01/18 08:00 98.0 79 20 142/79 (100) 95 06/01/18 07:53 77 22 95 Bi-pap 40 06/01/18 05:58 75 24 97 Facial 40 06/01/18 04:00 77 06/01/18 04:00 97.6 73 20 154/92 (112) 95 06/01/18 04:00 40 06/01/18 04:00 Venturi Mask 14.0 06/01/18 03:20 75 26 94 Facial 40 06/01/18 00:46 76 24 95 Bi-pap 40 06/01/18 00:32 77 26 96 Bi-pap 40 06/01/18 00:31 77 26 96 Facial 40 06/01/18 00:00 72 06/01/18 00:00 Venturi Mask 14.0 06/01/18 00:00 97.7 69 22 128/76 (93) 96 06/01/18 00:00 40 05/31/18 23:29 80 21 96 Facial 50 05/31/18 20:00 82 05/31/18 20:00 Venturi Mask 14.0 05/31/18 20:00 14.0 55 05/31/18 20:00 97.7 79 26 142/78 (99) 95 05/31/18 19:44 84 20 94 Venturi Mask 14.0 55 05/31/18 19:20 82 22 95 Venturi Mask 14.0 55 05/31/18 16:00 97.6 99 29 144/84 (104) 92 05/31/18 16:00 Venturi Mask 14.0 05/31/18 16:00 14.0 55 05/31/18 15:58 94 05/31/18 13:08 102 30 95 Venturi Mask 14.0 55 05/31/18 13:08 102 30 95 Venturi Mask 15.0 55 05/31/18 12:58 98 30 95 Venturi Mask 14.0 55 05/31/18 12:58 98 30 95 Venturi Mask 14.0 55 05/31/18 12:00 14.0 55 05/31/18 12:00 97 05/31/18 12:00 Venturi Mask 14.0 05/31/18 11:46 97.3 102 30 146/87 (106) 92 Height (Feet): 5 Height (Inches): 5.00 Weight (Pounds): 172 General Appearance: no acute distress HEENT: mucous membranes moist Respiratory/Chest: decreased breath sounds Cardiovascular: normal rate Abdomen: soft, non tender, other - NG tube Extremities: no edema Neurologic/Psychiatric: alert, responsive Laboratory Tests Test 06/01/18 04:25 06/01/18 04:30 White Blood Count 14.0 K/UL (4.8-10.8) H Red Blood Count 5.61 M/UL (4.20-5.40) H Hemoglobin 17.4 G/DL (12.0-16.0) H Hematocrit 53.4 % (37.0-47.0) H Mean Corpuscular Volume 95 FL (80-99) Mean Corpuscular Hemoglobin 31.1 PG (27.0-31.0) H Mean Corpuscular Hemoglobin Concent 32.6 G/DL (32.0-36.0) Red Cell Distribution Width 11.8 % (11.6-14.8) Platelet Count 196 K/UL (150-450) Mean Platelet Volume 7.0 FL (6.5-10.1) Neutrophils (%) (Auto) 68.2 % (45.0-75.0) Lymphocytes (%) (Auto) 23.3 % (20.0-45.0) Monocytes (%) (Auto) 7.5 % (1.0-10.0) Eosinophils (%) (Auto) 0.6 % (0.0-3.0) Basophils (%) (Auto) 0.4 % (0.0-2.0) Stool Occult Blood Pending Current Medications Medications (Trade) Dose Ordered Sig/Salty Route PRN Reason Start Time Stop Time Status Last Admin Dose Admin Acetaminophen (Tylenol) 500 mg Q4H PRN NG Mild Pain/Temp > 100.5 05/27/18 13:09 06/22/18 13:08 05/30/18 10:32 Acetylcysteine (Mucomyst) 100 mg TIDRT HHN 05/25/18 13:00 06/24/18 12:59 06/01/18 07:53 Albuterol/ Ipratropium (Albuterol/ Ipratropium) 3 ml Q4H PRN HHN Shortness of Breath 05/28/18 22:00 06/02/18 21:59 05/29/18 08:26 Albuterol/ Ipratropium (Albuterol/ Ipratropium) 3 ml Q6HRT HHN 05/29/18 13:00 06/03/18 12:59 06/01/18 07:53 Azithromycin (Zithromax) 250 mg DAILY NG 05/31/18 09:00 06/07/18 08:59 06/01/18 08:50 Barium Sulfate (Readi-Cat 2) 450 ml NOW PRN ORAL Radiology Procedure 05/31/18 10:00 06/02/18 09:57 Dextrose 1,000 ml @ 100 mls/hr Q10H IV 05/31/18 10:15 06/30/18 10:14 06/01/18 06:04 Fluoxetine HCl (PROzac) 20 mg DAILY NG 05/28/18 09:00 06/22/18 11:44 06/01/18 08:50 Heparin Sodium (Porcine) (Heparin 5000 units/ml) 5,000 units EVERY 12 HOURS SUBQ 05/22/18 21:00 06/21/18 20:59 06/01/18 08:40 Hydralazine HCl (Apresoline) 10 mg Q4H PRN IV SBP > 170mmHg 05/29/18 16:45 06/28/18 16:44 Meropenem 1 gm/ Sodium Chloride 55 ml @ 110 mls/hr Q8HR IVPB 05/29/18 14:00 06/03/18 13:59 06/01/18 06:04 Methylprednisolone Sodium Succinate (Solu-MEDROL) 30 mg DAILY IVP 06/01/18 09:00 06/23/18 08:59 06/01/18 08:42 Olanzapine (ZyPREXA) 15 mg BEDTIME NG 05/29/18 21:00 06/28/18 20:59 05/31/18 20:46 Migel Cohen MD Jun 01, 2018 10:38
--- NOTE | 2018-06-01 10:38 | Pulmonology Progress Note ---
Assessment/Plan Problems: (1) COPD exacerbation (2) Hypercapnic respiratory failure, chronic (3) Hypoxia (4) Benzodiazepine dependence (5) Hypercarbia (6) Schizoaffective disorder Assessment/Plan ASSESSMENT: The patient is a 67-year-old female smoker with history of chronic obstructive pulmonary disease, assisted living resident, hypertension, hyperlipidemia, hypothyroidism, presenting after a fall, respiratory distress, likely exacerbation of chronic obstructive pulmonary disease and urinary tract infection. PROBLEM LIST: 1. Acute on chronic hypercapnic respiratory failure. 2. Chronic obstructive pulmonary disease with acute exacerbation. 3. Urinary tract infection ( alpha hemolytic strep) 4. CoNS in blood likely contaminant 5. Leukocytosis secondary to above and steroids 6. Questionable fall. 7. History of psychiatric disorder. 8. Hypertension, hyperlipidemia, hypothyroidism. 9. Mild elevation of D-dimer. 10. Erythrocytosis & likely hemoconcentration 11. Elevated BUN TREATMENT PLAN: 1. TTE with BUBBLE 2. Optimize pulmonary hygiene/mobilize as tolerated. 3. BiPAP 12/5 qHS and PRN 4. Titrate FiO2 to keep saturations greater than 90% --> attempt to wean off HFO2 today 5. RTC and PRN DuoNeb + MUCOMYST + CPT 6. Decrease SM to 20 IV qDaily (D9) 7. Abx per ID 8. NPO while on BiPAP, TF's while off, continue MET[employer]GR[employer]HY TE[employer]ER therapy, not ready for PO yet 9. Monitor volumes and renal function, IVF per renal 10. F/U FOBT 11. DVT prophylaxis with heparin subcutaneous. 12. F/U neuro & psych recs, monitor MS, minimize sedative 13. The patient should have outpatient workup including pulmonary function tests Subjective Allergies: Coded Allergies: No Known Allergies (Unverified , 05/22/18) Subjective AFVSS BiPAP ON now on VM - taken off by me ---> RA sat after 5 min 91% Lethargic but more arousable CT CAP noted - chest cuts reviewed by me with R > L basilar atx vs resolving infiltrates some bxtsis No cough + SOB no wheezing no CP no FC Objective Last 24 Hour Vital Signs Date Time Temp Pulse Resp B/P (MAP) Pulse Ox O2 Delivery O2 Flow Rate FiO2 06/01/18 08:00 98.0 79 20 142/79 (100) 95 06/01/18 07:53 77 22 95 Bi-pap 40 06/01/18 05:58 75 24 97 Facial 40 06/01/18 04:00 77 06/01/18 04:00 97.6 73 20 154/92 (112) 95 06/01/18 04:00 40 06/01/18 04:00 Venturi Mask 14.0 06/01/18 03:20 75 26 94 Facial 40 06/01/18 00:46 76 24 95 Bi-pap 40 06/01/18 00:32 77 26 96 Bi-pap 40 06/01/18 00:31 77 26 96 Facial 40 06/01/18 00:00 72 06/01/18 00:00 Venturi Mask 14.0 06/01/18 00:00 97.7 69 22 128/76 (93) 96 06/01/18 00:00 40 05/31/18 23:29 80 21 96 Facial 50 05/31/18 20:00 82 05/31/18 20:00 Venturi Mask 14.0 05/31/18 20:00 14.0 55 05/31/18 20:00 97.7 79 26 142/78 (99) 95 05/31/18 19:44 84 20 94 Venturi Mask 14.0 55 05/31/18 19:20 82 22 95 Venturi Mask 14.0 55 05/31/18 16:00 97.6 99 29 144/84 (104) 92 05/31/18 16:00 Venturi Mask 14.0 05/31/18 16:00 14.0 55 05/31/18 15:58 94 05/31/18 13:08 102 30 95 Venturi Mask 14.0 55 05/31/18 13:08 102 30 95 Venturi Mask 15.0 55 05/31/18 12:58 98 30 95 Venturi Mask 14.0 55 05/31/18 12:58 98 30 95 Venturi Mask 14.0 55 05/31/18 12:00 14.0 55 05/31/18 12:00 97 05/31/18 12:00 Venturi Mask 14.0 05/31/18 11:46 97.3 102 30 146/87 (106) 92 Intake and Output 05/31/18 06/01/18 19:00 07:00 Intake Total 1841.6 ml 1220 ml Output Total 800 ml 300 ml Balance 1041.6 ml 920 ml Intake Free Water 260 ml IV Total 921.6 ml 1110 ml Tube Feeding 660 ml 110 ml Output Urine Total 800 ml 300 ml General Appearance: cachetic, other - lethargic HEENT: normocephalic, atraumatic, anicteric, mucous membranes moist Respiratory/Chest: chest wall non-tender, lungs clear, normal breath sounds, no respiratory distress, no accessory muscle use Cardiovascular: normal peripheral pulses, normal rate, regular rhythm Abdomen: normal bowel sounds, soft, non tender, no organomegaly, non distended , no mass Extremities: no cyanosis, no clubbing, no edema Laboratory Tests 06/01/18 04:25: White Blood Count 14.0H, Red Blood Count 5.61H, Hemoglobin 17.4H, Hematocrit 53.4H, Mean Corpuscular Volume 95, Mean Corpuscular Hemoglobin 31.1H, Mean Corpuscular Hemoglobin Concent 32.6, Red Cell Distribution Width 11.8, Platelet Count 196, Mean Platelet Volume 7.0, Neutrophils (%) (Auto) 68.2, Lymphocytes (% ) (Auto) 23.3, Monocytes (%) (Auto) 7.5, Eosinophils (%) (Auto) 0.6, Basophils ( %) (Auto) 0.4 06/01/18 04:30: Stool Occult Blood [Pending] Current Medications Medications (Trade) Dose Ordered Sig/Salty Route PRN Reason Start Time Stop Time Status Last Admin Dose Admin Acetaminophen (Tylenol) 500 mg Q4H PRN NG Mild Pain/Temp > 100.5 05/27/18 13:09 06/22/18 13:08 05/30/18 10:32 Acetylcysteine (Mucomyst) 100 mg TIDRT N 05/25/18 13:00 06/24/18 12:59 06/01/18 07:53 Albuterol/ Ipratropium (Albuterol/ Ipratropium) 3 ml Q4H PRN HHN Shortness of Breath 05/28/18 22:00 06/02/18 21:59 05/29/18 08:26 Albuterol/ Ipratropium (Albuterol/ Ipratropium) 3 ml Q6HRT N 05/29/18 13:00 06/03/18 12:59 06/01/18 07:53 Azithromycin (Zithromax) 250 mg DAILY NG 05/31/18 09:00 06/07/18 08:59 06/01/18 08:50 Barium Sulfate (Readi-Cat 2) 450 ml NOW PRN ORAL Radiology Procedure 05/31/18 10:00 06/02/18 09:57 Dextrose 1,000 ml @ 100 mls/hr Q10H IV 05/31/18 10:15 06/30/18 10:14 06/01/18 06:04 Fluoxetine HCl (PROzac) 20 mg DAILY NG 05/28/18 09:00 06/22/18 11:44 06/01/18 08:50 Heparin Sodium (Porcine) (Heparin 5000 units/ml) 5,000 units EVERY 12 HOURS SUBQ 05/22/18 21:00 06/21/18 20:59 06/01/18 08:40 Hydralazine HCl (Apresoline) 10 mg Q4H PRN IV SBP > 170mmHg 05/29/18 16:45 06/28/18 16:44 Meropenem 1 gm/ Sodium Chloride 55 ml @ 110 mls/hr Q8HR IVPB 05/29/18 14:00 06/03/18 13:59 06/01/18 06:04 Methylprednisolone Sodium Succinate (Solu-MEDROL) 30 mg DAILY IVP 06/01/18 09:00 06/23/18 08:59 06/01/18 08:42 Olanzapine (ZyPREXA) 15 mg BEDTIME NG 05/29/18 21:00 06/28/18 20:59 05/31/18 20:46 Rory Membreno MD Jun 01, 2018 10:38
--- NOTE | 2018-06-01 10:53 | General Progress Note ---
Assessment/Plan Problem List: (1) Hypoxia ICD Codes: R09.02 - Hypoxemia SNOMED: 188130410 (2) COPD exacerbation ICD Codes: J44.1 - Chronic obstructive pulmonary disease with (acute) exacerbation SNOMED: 777157685 (3) Hypercapnic respiratory failure, chronic ICD Codes: J96.12 - Chronic respiratory failure with hypercapnia SNOMED: 266696804 (4) Hypoxemia ICD Codes: R09.02 - Hypoxemia SNOMED: 825591136 (5) Benzodiazepine dependence ICD Codes: F13.20 - Sedative, hypnotic or anxiolytic dependence, uncomplicated SNOMED: 413587104 (6) Hypoalbuminemia ICD Codes: E88.09 - Other disorders of plasma-protein metabolism, not elsewhere classified SNOMED: 171067323 Status: unchanged Assessment/Plan not much changed from yesterday afebrile on high oxygen requirement still confused and lethargic continue suction copd exacerbation worsening renal failure iv hydration per renal very concerned about her condition still lethargic discussed w renal and pulmonary Subjective Respiratory: Reports: shortness of breath Allergies: Coded Allergies: No Known Allergies (Unverified , 05/22/18) Subjective lehtargic sob Objective Last 24 Hour Vital Signs Date Time Temp Pulse Resp B/P (MAP) Pulse Ox O2 Delivery O2 Flow Rate FiO2 06/01/18 08:00 98.0 79 20 142/79 (100) 95 06/01/18 07:53 77 22 95 Bi-pap 40 06/01/18 05:58 75 24 97 Facial 40 06/01/18 04:00 77 06/01/18 04:00 97.6 73 20 154/92 (112) 95 06/01/18 04:00 40 06/01/18 04:00 Venturi Mask 14.0 06/01/18 03:20 75 26 94 Facial 40 06/01/18 00:46 76 24 95 Bi-pap 40 06/01/18 00:32 77 26 96 Bi-pap 40 06/01/18 00:31 77 26 96 Facial 40 06/01/18 00:00 72 06/01/18 00:00 Venturi Mask 14.0 06/01/18 00:00 97.7 69 22 128/76 (93) 96 06/01/18 00:00 40 05/31/18 23:29 80 21 96 Facial 50 05/31/18 20:00 82 05/31/18 20:00 Venturi Mask 14.0 05/31/18 20:00 14.0 55 05/31/18 20:00 97.7 79 26 142/78 (99) 95 05/31/18 19:44 84 20 94 Venturi Mask 14.0 55 05/31/18 19:20 82 22 95 Venturi Mask 14.0 55 05/31/18 16:00 97.6 99 29 144/84 (104) 92 05/31/18 16:00 Venturi Mask 14.0 05/31/18 16:00 14.0 55 05/31/18 15:58 94 05/31/18 13:08 102 30 95 Venturi Mask 14.0 55 05/31/18 13:08 102 30 95 Venturi Mask 15.0 55 05/31/18 12:58 98 30 95 Venturi Mask 14.0 55 05/31/18 12:58 98 30 95 Venturi Mask 14.0 55 05/31/18 12:00 14.0 55 05/31/18 12:00 97 05/31/18 12:00 Venturi Mask 14.0 05/31/18 11:46 97.3 102 30 146/87 (106) 92 Intake and Output 05/31/18 06/01/18 19:00 07:00 Intake Total 1841.6 ml 1220 ml Output Total 800 ml 300 ml Balance 1041.6 ml 920 ml Intake Free Water 260 ml IV Total 921.6 ml 1110 ml Tube Feeding 660 ml 110 ml Output Urine Total 800 ml 300 ml Laboratory Tests 06/01/18 04:25: White Blood Count 14.0H, Red Blood Count 5.61H, Hemoglobin 17.4H, Hematocrit 53.4H, Mean Corpuscular Volume 95, Mean Corpuscular Hemoglobin 31.1H, Mean Corpuscular Hemoglobin Concent 32.6, Red Cell Distribution Width 11.8, Platelet Count 196, Mean Platelet Volume 7.0, Neutrophils (%) (Auto) 68.2, Lymphocytes (% ) (Auto) 23.3, Monocytes (%) (Auto) 7.5, Eosinophils (%) (Auto) 0.6, Basophils ( %) (Auto) 0.4 06/01/18 04:30: Stool Occult Blood [Pending] Height (Feet): 5 Height (Inches): 5.00 Weight (Pounds): 172 General Appearance: lethargic, confused Respiratory/Chest: rhonchi - bilaterally Margot Dutta MD Jun 01, 2018 10:53
[2018-06-01 12:00] VITALS: BP 136/76
--- NOTE | 2018-06-01 12:54 | Nephrology Progress Note ---
Assessment/Plan Problem List: (1) Proteinuria (2) Hypoalbuminemia (3) COPD exacerbation (4) Schizoaffective disorder (5) Azotemia Assessment rissing BUN and Hgb admitted with exacerbation COPD and Hypoxia High WBCs : UTI , Pneumonia Proteinuria and HypoAlbuminemia Plan no CMP today- stop Lasix D5w 100 cc hourly doing poorly MS down multifactorial BIPAP Antibiotics 24 h urine proteins CAN NOT BE COLLECTED UNLESS FOLEY_ WILL DEFER 2D echo Left ventricular ejection fraction grossly estimated to be 65 %. optimize cardiac status Subjective ROS Limited/Unobtainable: No Constitutional: Reports: malaise, weakness Objective Objective Last 24 Hour Vital Signs Date Time Temp Pulse Resp B/P (MAP) Pulse Ox O2 Delivery O2 Flow Rate FiO2 06/01/18 08:00 98.0 79 20 142/79 (100) 95 06/01/18 07:53 77 22 95 Bi-pap 40 06/01/18 05:58 75 24 97 Facial 40 06/01/18 04:00 77 06/01/18 04:00 97.6 73 20 154/92 (112) 95 06/01/18 04:00 40 06/01/18 04:00 Venturi Mask 14.0 06/01/18 03:20 75 26 94 Facial 40 06/01/18 00:46 76 24 95 Bi-pap 40 06/01/18 00:32 77 26 96 Bi-pap 40 06/01/18 00:31 77 26 96 Facial 40 06/01/18 00:00 72 06/01/18 00:00 Venturi Mask 14.0 06/01/18 00:00 97.7 69 22 128/76 (93) 96 06/01/18 00:00 40 05/31/18 23:29 80 21 96 Facial 50 05/31/18 20:00 82 05/31/18 20:00 Venturi Mask 14.0 05/31/18 20:00 14.0 55 05/31/18 20:00 97.7 79 26 142/78 (99) 95 05/31/18 19:44 84 20 94 Venturi Mask 14.0 55 05/31/18 19:20 82 22 95 Venturi Mask 14.0 55 05/31/18 16:00 97.6 99 29 144/84 (104) 92 05/31/18 16:00 Venturi Mask 14.0 05/31/18 16:00 14.0 55 05/31/18 15:58 94 05/31/18 13:08 102 30 95 Venturi Mask 14.0 55 05/31/18 13:08 102 30 95 Venturi Mask 15.0 55 05/31/18 12:58 98 30 95 Venturi Mask 14.0 55 05/31/18 12:58 98 30 95 Venturi Mask 14.0 55 Intake and Output 05/31/18 06/01/18 19:00 07:00 Intake Total 1841.6 ml 1220 ml Output Total 800 ml 300 ml Balance 1041.6 ml 920 ml Intake Free Water 260 ml IV Total 921.6 ml 1110 ml Tube Feeding 660 ml 110 ml Output Urine Total 800 ml 300 ml Laboratory Tests 06/01/18 04:25: White Blood Count 14.0H, Red Blood Count 5.61H, Hemoglobin 17.4H, Hematocrit 53.4H, Mean Corpuscular Volume 95, Mean Corpuscular Hemoglobin 31.1H, Mean Corpuscular Hemoglobin Concent 32.6, Red Cell Distribution Width 11.8, Platelet Count 196, Mean Platelet Volume 7.0, Neutrophils (%) (Auto) 68.2, Lymphocytes (% ) (Auto) 23.3, Monocytes (%) (Auto) 7.5, Eosinophils (%) (Auto) 0.6, Basophils ( %) (Auto) 0.4 06/01/18 04:30: Stool Occult Blood Negative Height (Feet): 5 Height (Inches): 5.00 Weight (Pounds): 172 General Appearance: no apparent distress EENT: other - BIPAP Cardiovascular: normal rate Respiratory/Chest: decreased breath sounds Abdomen: soft Objective no change Seamus Morfin MD Jun 01, 2018 12:54
--- NOTE | 2018-06-01 14:43 | NUR ---
ST NOTE: SWALLOW STATUS FOLLOWED UP PT'S CONDITIONS. PT SEEN AT BEDSIDE IN PM. VERY WEAK, AROUSABLE, ROOM AIR, SHALLOW BREATHING IS NOTED. HIGH RESPIRATORY RATE: 28-32, SPO2: LOW 90s. PT IS STILL NOT READY TO EAT/DRINK BY MOUTH OR VIDEOSWALLOW STUDY DUE TO OVERALL WEAKNESS AND CURRENT RESPIRATORY RATE. PT IS AT HIGH RISK FOR ASPIRATION IF PO IS GIVEN AT THIS TIME. D/W RT, CAROLANN RE:PT'S CONDITIONS. PER RT, PT HAS A WEAK COUGH AND SOMETIMES REQUIRED DEEP NASAL SUCTION TO CLEAR SECRETION. WILL FOLLOW UP RE: VIDEOSWALLOW STUDY WHEN PT IS READY. LONG-TERM NONORAL FEEDING MEANS SHOULD BE CONSIDERED PRIMARILY NUTRITION AND HYDRATION NEEDS DUE TO PT'S RESPIRATORY CONDITIONS.
[2018-06-01 16:00] VITALS: BP 122/72
--- NOTE | 2018-06-01 16:08 | General Progress Note ---
Assessment/Plan Assessment/Plan Assessment and Recs: # Leukocytosis - is likely related to infection/pna --> smear has been reviewed and only 1% metamyelocytes noted, not significant finding --> esr and crp elevated --> wbc trend : 19--> 22--> 21--> 20-->14 --> abx as per Dr. Cohen, currently on cefepime # Elevated d-dimer - r/o dvt of lower ext --> venous duplex negative scan --> likely elevated due to many possible reasons --> CXR 05/27 Elevated right hemidiaphragm. Bibasilar lung atelectasis. ->05/31: Bilateral lower lobe atelectasis and consolidation, improved since prior study of 05/26/2018 but persistent # Hypoxemia potentially copd related --> off bipap at this time --> bipap at night as per pulm # Hypercarbia # Benzodiazepine dependence # Psychosis # Sinus tach --> as per Dr. Ocampo The timing of this note does not necessarily reflect the time of the patient was seen. Greatly appreciate consultation! Subjective Constitutional: Denies: no symptoms, chills, diaphoresis, fever, malaise, weakness, other HEENT: Denies: no symptoms, eye pain, blurred vision, tearing, double vision, ear pain, ear discharge, nose pain, nose congestion, throat pain, throat swelling, mouth pain, mouth swelling, other Cardiovascular: Denies: no symptoms, chest pain, edema, irregular heart rate, lightheadedness, palpitations, syncope, other Respiratory: Denies: no symptoms, cough, orthopnea, shortness of breath, SOB with excertion, SOB at rest, sputum, stridor, wheezing, other Gastrointestinal/Abdominal: Denies: no symptoms, abdomen distended, abdominal pain, black stools, tarry stools, blood in stool, constipated, diarrhea, difficulty swallowing, nausea, poor appetite, poor fluid intake, rectal bleeding , vomiting, other Genitourinary: Denies: no symptoms, burning, discharge, frequency, flank pain, hematuria, incontinence, pain, urgency, other Neurologic/Psychiatric: Denies: no symptoms, anxiety, depressed, emotional problems, headache, numbness, paresthesia, pre-existing deficit, seizure, tingling, tremors, weakness, other Endocrine: Denies: no symptoms, excessive sweating, flushing, intolerance to cold, intolerance to heat, increased hunger, increased thirst, increased urine, unexplained weight gain, unexplained weight loss, other Hematologic/Lymphatic: Denies: no symptoms, anemia, easy bleeding, easy bruising, other Allergies: Coded Allergies: No Known Allergies (Unverified , 05/22/18) Subjective 2: on venturi mask, no new changes, mild fever today, no chills 05/24: Pt is seen by bedside, awake, comfortable, wbc trending up 05/25: hgb and wbc trending up, seen in the room, awake, bipap, no fevers or cills , 05/26: no new changes, no fever, no chills, Back on BIPAP 05/29:seen by bedside in restraints. BP is elevated, CXR is reviewed, no acute findings, hgb trending up. 05/30: awake, comfortable, no acute distress, wbc 20, hgb still trending up at 19 today. 05/31: seen by bedside, awake, comfortable, no acute distress, 06/01: seen y bedside, awake, comfortable, no acute distress, wbc and hgb trending down. wbc 14, hgb 17. Objective Last 24 Hour Vital Signs Date Time Temp Pulse Resp B/P (MAP) Pulse Ox O2 Delivery O2 Flow Rate FiO2 06/01/18 14:20 91 29 94 Venturi Mask 14.0 55 06/01/18 14:10 88 27 93 Room Air 06/01/18 12:15 Bi-pap 15.0 06/01/18 08:03 88 27 94 Venturi Mask 14.0 55 06/01/18 08:00 76 06/01/18 08:00 Bi-pap 15.0 06/01/18 08:00 40 06/01/18 08:00 98.0 79 20 142/79 (100) 95 06/01/18 07:53 77 22 95 Bi-pap 40 06/01/18 05:58 75 24 97 Facial 40 06/01/18 04:00 77 06/01/18 04:00 97.6 73 20 154/92 (112) 95 06/01/18 04:00 40 06/01/18 04:00 Venturi Mask 14.0 06/01/18 03:20 75 26 94 Facial 40 06/01/18 00:46 76 24 95 Bi-pap 40 06/01/18 00:32 77 26 96 Bi-pap 40 06/01/18 00:31 77 26 96 Facial 40 06/01/18 00:00 72 06/01/18 00:00 Venturi Mask 14.0 06/01/18 00:00 97.7 69 22 128/76 (93) 96 06/01/18 00:00 40 05/31/18 23:29 80 21 96 Facial 50 05/31/18 20:00 82 05/31/18 20:00 Venturi Mask 14.0 05/31/18 20:00 14.0 55 05/31/18 20:00 97.7 79 26 142/78 (99) 95 05/31/18 19:44 84 20 94 Venturi Mask 14.0 55 05/31/18 19:20 82 22 95 Venturi Mask 14.0 55 Intake and Output 05/31/18 06/01/18 19:00 07:00 Intake Total 1841.6 ml 1220 ml Output Total 800 ml 300 ml Balance 1041.6 ml 920 ml Intake Free Water 260 ml IV Total 921.6 ml 1110 ml Tube Feeding 660 ml 110 ml Output Urine Total 800 ml 300 ml Laboratory Tests 06/01/18 04:25: White Blood Count 14.0H, Red Blood Count 5.61H, Hemoglobin 17.4H, Hematocrit 53.4H, Mean Corpuscular Volume 95, Mean Corpuscular Hemoglobin 31.1H, Mean Corpuscular Hemoglobin Concent 32.6, Red Cell Distribution Width 11.8, Platelet Count 196, Mean Platelet Volume 7.0, Neutrophils (%) (Auto) 68.2, Lymphocytes (% ) (Auto) 23.3, Monocytes (%) (Auto) 7.5, Eosinophils (%) (Auto) 0.6, Basophils ( %) (Auto) 0.4, Sodium Level [Pending], Potassium Level [Pending], Chloride Level [Pending], Carbon Dioxide Level [Pending], Blood Urea Nitrogen [Pending], Creatinine [Pending], Estimat Glomerular Filtration Rate [Pending], Glucose Level [Pending], Uric Acid [Pending], Calcium Level [Pending], Phosphorus Level [Pending], Magnesium Level [Pending], Total Bilirubin [Pending], Aspartate Amino Transf (AST/SGOT) [Pending], Alanine Aminotransferase (ALT/SGPT) [Pending] , Alkaline Phosphatase [Pending], Total Protein [Pending], Albumin [Pending], Globulin [Pending] 06/01/18 04:30: Stool Occult Blood Negative Height (Feet): 5 Height (Inches): 5.00 Weight (Pounds): 172 Objective General Appearance: no apparent distress, GCS 15, non-toxic, other - sleepy Head: normocephalic, atraumatic Eyes: bilateral eye normal inspection, bilateral eye PERRL ENT: hearing grossly normal, normal pharynx, no angioedema, normal voice Neck: full range of motion, supple/symm/no masses Respiratory: chest non-tender, lungs clear, normal breath sounds Cardiovascular: regular rate, rhythm, no edema Gastrointestinal: normal bowel sounds, non tender Musculoskeletal: back normal, gait/station normal Jorje Troy MD Jun 01, 2018 16:08
[2018-06-01 17:13] LABS: ALANINE AMINOTRANSFERASE 63 U/L (12-78); ALBUMIN 2.5 G/DL (3.4-5.0); ALBUMIN/GLOBULIN RATIO 0.6 (1.0-2.7); ALKALINE PHOSPHATASE 80 U/L (46-116); ANION GAP 7 mmol/L (5-15); ASPARTATE AMINO TRANSFERASE 34 U/L (15-37); BILIRUBIN,TOTAL 0.4 MG/DL (0.2-1.0); BLOOD UREA NITROGEN 34 mg/dL (7-18); CALCIUM 8.8 MG/DL (8.5-10.1); CARBON DIOXIDE 32 MMOL/L (21-32); CHLORIDE 100 MMOL/L (98-107); CREATININE 0.9 MG/DL (0.55-1.30); PHOSPHORUS 3.1 MG/DL (2.5-4.9); POTASSIUM 4.6 MMOL/L (3.5-5.1); SODIUM 139 MMOL/L (136-145)
--- NOTE | 2018-06-01 19:05 | Neurology Progress Note ---
Interim History Interim History Interim History Ms. Whitfield feels much better. She is significantly more alert and brighter today. She feels that her mind is clearer. She feels stronger. She is on room air now. She is eager to eat and drink. She is not delusional. She denies any new neurologic symptoms. She is less forgetful. She is much more cooperative. Review of Systems Neuro Review of Systems Benign. Objective Physical Exam Last Vital Signs Date Time Temp Pulse Resp B/P (MAP) Pulse Ox O2 Delivery O2 Flow Rate FiO2 06/01/18 16:00 Bi-pap 15.0 06/01/18 16:00 96.0 84 20 122/72 (89) 92 06/01/18 14:20 55 Laboratory Tests Test 06/01/18 04:25 06/01/18 04:30 06/01/18 16:10 White Blood Count 14.0 K/UL (4.8-10.8) H Red Blood Count 5.61 M/UL (4.20-5.40) H Hemoglobin 17.4 G/DL (12.0-16.0) H Hematocrit 53.4 % (37.0-47.0) H Mean Corpuscular Volume 95 FL (80-99) Mean Corpuscular Hemoglobin 31.1 PG (27.0-31.0) H Mean Corpuscular Hemoglobin Concent 32.6 G/DL (32.0-36.0) Red Cell Distribution Width 11.8 % (11.6-14.8) Platelet Count 196 K/UL (150-450) Mean Platelet Volume 7.0 FL (6.5-10.1) Neutrophils (%) (Auto) 68.2 % (45.0-75.0) Lymphocytes (%) (Auto) 23.3 % (20.0-45.0) Monocytes (%) (Auto) 7.5 % (1.0-10.0) Eosinophils (%) (Auto) 0.6 % (0.0-3.0) Basophils (%) (Auto) 0.4 % (0.0-2.0) Stool Occult Blood Negative (NEGATIVE) Sodium Level 139 MMOL/L (136-145) Potassium Level 4.6 MMOL/L (3.5-5.1) Chloride Level 100 MMOL/L (98-107) Carbon Dioxide Level 32 MMOL/L (21-32) Anion Gap 7 mmol/L (5-15) Blood Urea Nitrogen 34 mg/dL (7-18) H Creatinine 0.9 MG/DL (0.55-1.30) Estimat Glomerular Filtration Rate > 60 mL/min (>60) Glucose Level 174 MG/DL (74-106) H Uric Acid 6.0 MG/DL (2.6-7.2) Calcium Level 8.8 MG/DL (8.5-10.1) Phosphorus Level 3.1 MG/DL (2.5-4.9) Magnesium Level 2.0 MG/DL (1.8-2.4) Total Bilirubin 0.4 MG/DL (0.2-1.0) Aspartate Amino Transf (AST/SGOT) 34 U/L (15-37) Alanine Aminotransferase (ALT/SGPT) 63 U/L (12-78) Alkaline Phosphatase 80 U/L (46-116) Total Protein 6.8 G/DL (6.4-8.2) Albumin 2.5 G/DL (3.4-5.0) L Globulin 4.3 g/dL Albumin/Globulin Ratio 0.6 (1.0-2.7) L Neurologic Exam Objective PHYSICAL EXAMINATION: GENERAL: She is a well-developed, well-nourished, pleasant lady, lying in bed. HEAD: Normocephalic and atraumatic. EENT: Examination benign NECK: No neck rigidity was observed. NEUROLOGICAL EXAMINATION: MENTAL STATUS EXAMINATION: She was awake and alert. She was oriented to self, [facility] and May 2018. She was able to recall 3/3 words immediately and could remember 2/3 after 1 minute and after 3 minutes. She was able to remember president Trump and Obama only. Her mathematical skills were impaired. Her visuospatial function was also impaired. SPEECH: She had a no dysarthria. LANGUAGE: She had a mild anomia for low-frequency words. CRANIAL NERVE EXAMINATION: II: The visual beltran were intact on confrontation testing. III, IV & : The external ocular movements were full and the pupils 3 mm in diameter, equal, round, regular, and reactive to light. V: She had normal facial sensations, and the temporales, masseters, and pterygoids functioned normally. VII: She had normal facial expressions and no facial asymmetry. VIII: She was able to hear well bilaterally and had no nystagmus. IX: The palate moved symmetrically on phonation. X: She had no hoarseness of voice. XI: The sternocleidomastoids and trapezii functioned normally. XII: The tongue was in the midline without any fasciculations or atrophy. MOTOR SYSTEM: The tone was normal in all four extremities. Examination of muscle mass revealed no focal wasting. Examination of power revealed G 5/5 power in the upper extremities. She also had G 5/5 in the lower extremities except for G 5-/5 in the iliopsoas. SENSORY EXAMINATION: She had intact sensations to light touch but did not cooperate for further sensory testing. COORDINATION: She performed well on [id number] testing. She was unable to perform [id number]-[id number] testing. REFLEXES: 1+ and bilaterally symmetrical at the biceps, triceps, brachioradialis, and knees, 0 at both ankles. The plantar responses were flexor bilaterally. STANCE: Could not be tested. GAIT: Could not be tested. Impression/Recommendations Diagnostic Impression 1. Ms Leigh Ann Whitfield is a 67-year-old, right-handed, lady, who does have a past history of hypertension, dyslipidemia, chronic obstructive pulmonary disease, hypothyroidism, schizoaffective disorder, and recent falls, who was hospitalized on 05/22/2018 for an altered mental state and a fall at [facility] [place] [facility]. She was found to be hypoxic, hypercapnic, and had a significant leukocytosis. Since she has been in the hospital, she has improved. 2. She feels much better. She is significantly more alert and brighter today. She feels that her mind is clearer. She feels stronger. She is on room air. She is eager to eat and drink. She is not delusional. She denies any new neurologic symptoms. She is less forgetful. She is much more cooperative. 3. On neurological examination, at this time, she is disoriented to the date. Has problems with recent and remote memory, visuospatial function and higher cognitive function. Has a mild anomia, has proximal lower extremities weakness, an has globally diminished deep tendon reflexes. 4. Laboratory data on my initial evaluation revealed that she had a significant leukocytosis with a WBC count of 19,700. Her chemistry panel revealed that her uric acid level was elevated at 8.2, magnesium was low at 1.6. ProBNP that was elevated at 186, albumin was low at 2.5. Her B12 level was normal at 924. Her folate level was normal at 40.6. Her TSH was normal at 1.92 with a free T4 of 1.13. The Hemoglobin A1c was at 6%. Latest arterial blood gas revealed a pH at 7.37, pCO2 at 62, and pO2 at 56. Her urinalysis revealed 1+ leukocyte esterase, 0-2 red blood cells, and 2-4 white blood cells per high-power field. 5. Further laboratory tests have revealed a minimally elevated ammonia at 34. 6. The last ABG done on 05/29/18 revealed a pH of 7.39, elevated pCO2 at 64 and low pO2 at 74. 7. She continues to have a significant leukocytosis with a WBC count of 20,200 on 05/29/18. 8. The CT scan of the brain without contrast revealed atrophy and some deep white matter changes, but no acute pathology. 9. The EGG done on 05/24/18 was normal in the awake and drowsy states. 10. The patient's history, neurological examination, laboratory data, and imaging studies are most compatible with a toxic metabolic encephalopathy related to the hypoxia, hypercapnia, and an infectious process. Her encephalopathy is better today. 11. She is not psychotic today. Recommendations 1. Continue present management. 2. Aggressive treatment of the patient's respiratory failure as per Dr. Membreno. 3. Aggressive treatment of the patient's infectious process as per Dr. Cohen. 4. Correction of fluid and electrolyte status. 5. Observe closely. Fransico Bolton M.D., M.S.P.H. Fransico Bolton MD Jun 01, 2018 19:05
--- NOTE | 2018-06-01 19:15 | NUR ---
NURSE NOTES: Report received from RAUL Hahn. Pt A/Ox2, drowsy. [employer] financial controller shows SR. Pt currently on RA. O2 saturation @ 91%. Pt has an NGT located in the R nare with glucerna 1.2 running at 55 ml/hr. Purewick in place. Accuchecks q6h. No skin issues noted. Pt has a RAC20g with D5W running at 100 ml/hr. Bed in lowest position, call light within reach, bed alarms placed. Will continue to monitor and with patients plan of care.
[2018-06-01 20:00] VITALS: BP 114/61
[2018-06-01] MEDS: OLANZapine 10mg tab NG SCH (20:41)
--- NOTE | 2018-06-01 23:05 | NUR ---
NURSE NOTES: Report received from RAUL Mitchell. Observed pt sleeping on the bed. SR with phototypesetting equipment monitor. PT is RA saturating at 91 %. NGT intact and running Glucerna 1.2 at 55cc/hr. IV on R AC 20 G, running D5W at 100cc/hr. Bed in the lowest position. Side rails up x3. Will continue to monitor.
[2018-06-02] VITALS: BP 122/75
[2018-06-02] MEDS: Albuterol/Ipratropium 3ml neb HHN SCH ×4 (01:17→20:07)
--- NOTE | 2018-06-02 02:58 | NUR ---
NURSE NOTES: Observed pt sleeping on the bed. Pt is on room air, saturating at 90-91%. No signs of pain noted at this time. Will continue to monitor.
[2018-06-02 04:00] VITALS: BP 116/68
[2018-06-02] MEDS: Meropenem 1 GM in NS 55 ML IVPB SCH ×3 (05:56→21:17)
[2018-06-02 06:13] LABS: BASOPHILS % (AUTO) 0.5 % (0.0-2.0); HEMATOCRIT 48.2 % (37.0-47.0); HEMOGLOBIN 16.3 G/DL (12.0-16.0); LYMPHOCYTES % (AUTO) 23.1 % (20.0-45.0); MEAN CORPUSCULAR VOLUME 93 FL (80-99); MONOCYTES % (AUTO) 5.3 % (1.0-10.0); NEUTROPHILS % (AUTO) 70.1 % (45.0-75.0); PLATELET COUNT 183 K/UL (150-450); RED BLOOD COUNT 5.17 M/UL (4.20-5.40); RED CELL DISTRIBUTION WIDTH 11.3 % (11.6-14.8); WHITE BLOOD COUNT 15.3 K/UL (4.8-10.8)
--- NOTE | 2018-06-02 07:30 | NUR ---
NURSE NOTES: Pt desating to 88-89% with room air. Put NC with 2L back on pt, saturating at 94%. Will continue to monitor.
[2018-06-02 08:00] VITALS: BP 125/82
[2018-06-02] MEDS: Solu-MEDROL 40mg Inj IVP SCH (08:10)
[2018-06-02] MEDS: Azithromycin 250mg tab NG SCH (08:11)
[2018-06-02] MEDS: Heparin 5000 units/ml inj SUBQ SCH ×2 (08:15→20:37)
--- NOTE | 2018-06-02 09:22 | General Progress Note ---
Assessment/Plan Assessment/Plan (1) S/p fall (2) COPD Exacerbation (3) OA Patient to be continued on Tylenol D/w Dr. Garcia and he concurred. Subjective Date patient seen: Jun 02, 2018 Time patient seen: 08:40 - am Constitutional: Reports: weakness Allergies: Coded Allergies: No Known Allergies (Unverified , 05/22/18) Subjective Patient continues to be in bed showing no signs of pain or distress. She continues to feel weak. Objective Last 24 Hour Vital Signs Date Time Temp Pulse Resp B/P (MAP) Pulse Ox O2 Delivery O2 Flow Rate FiO2 06/02/18 07:19 89 22 97 Nasal Cannula 2.0 28 06/02/18 07:10 85 23 92 Nasal Cannula 2.0 28 06/02/18 04:00 79 06/02/18 04:00 Room Air 06/02/18 04:00 97.9 85 13 116/68 (84) 93 06/02/18 01:28 74 26 98 Room Air 21 06/02/18 01:17 78 23 92 Room Air 21 06/02/18 00:00 70 06/02/18 00:00 Room Air 06/02/18 00:00 97.8 77 24 122/75 (91) 92 06/01/18 20:00 76 06/01/18 20:00 Room Air 06/01/18 20:00 97.4 76 20 114/61 (78) 91 06/01/18 19:14 84 17 97 Room Air 21 06/01/18 19:04 76 22 95 Room Air 21 06/01/18 16:00 Bi-pap 15.0 06/01/18 16:00 96.0 84 20 122/72 (89) 92 06/01/18 16:00 79 06/01/18 14:20 91 29 94 Venturi Mask 14.0 55 06/01/18 14:10 88 27 93 Room Air 06/01/18 12:15 Bi-pap 15.0 06/01/18 12:00 98.2 80 20 136/76 (96) 91 06/01/18 11:44 88 Intake and Output 06/01/18 06/02/18 19:00 07:00 Intake Total 1730 ml 1705 ml Output Total 900 ml 600 ml Balance 830 ml 1105 ml Intake Free Water 60 ml 60 ml IV Total 1010 ml 1205 ml Tube Feeding 660 ml 440 ml Output Urine Total 900 ml 600 ml # Bowel Movements 1 Laboratory Tests 06/01/18 16:10: Sodium Level 139, Potassium Level 4.6, Chloride Level 100, Carbon Dioxide Level 32, Anion Gap 7, Blood Urea Nitrogen 34H, Creatinine 0.9, Estimat Glomerular Filtration Rate > 60, Glucose Level 174H, Uric Acid 6.0, Calcium Level 8.8, Phosphorus Level 3.1, Magnesium Level 2.0, Total Bilirubin 0.4, Aspartate Amino Transf (AST/SGOT) 34, Alanine Aminotransferase (ALT/SGPT) 63, Alkaline Phosphatase 80, Total Protein 6.8, Albumin 2.5L, Globulin 4.3, Albumin/Globulin Ratio 0.6L 06/02/18 05:10: White Blood Count 15.3H, Red Blood Count 5.17, Hemoglobin 16.3H, Hematocrit 48.2H, Mean Corpuscular Volume 93, Mean Corpuscular Hemoglobin 31.6H, Mean Corpuscular Hemoglobin Concent 33.8, Red Cell Distribution Width 11.3L, Platelet Count 183, Mean Platelet Volume 7.9, Neutrophils (%) (Auto) 70.1, Lymphocytes (%) (Auto) 23.1, Monocytes (%) (Auto) 5.3, Eosinophils (%) (Auto) 1.0, Basophils (%) (Auto) 0.5 06/02/18 09:10: Arterial Blood pH 7.487H, Arterial Blood Partial Pressure CO2 43.6, Arterial Blood Partial Pressure O2 62.1L, Arterial Blood HCO3 32.3H, Arterial Blood Oxygen Saturation 92.9L, Arterial Blood Base Excess 7.8H, Rahul Test Positive Height (Feet): 5 Height (Inches): 5.00 Weight (Pounds): 172 Objective Neck: non-tender, supple Cardiovascular: normal rate, regular rhythm Respiratory/Chest: decreased breath sounds Abdomen: non tender, soft Extremities: non-tender Edema: trace edema Skin: warm/dry Anjum Dumont Jun 02, 2018 09:22
--- NOTE | 2018-06-02 10:00 | NUR ---
NURSE NOTES: NC 2L taken off again to see pt can tolerate room air and pt desating to 89 again. O2 NC applied. Will continue to monitor.
--- NOTE | 2018-06-02 10:09 | Infectious Diseases Prog Note ---
Assessment/Plan Assessment/Plan A; Chronic obstructive pulmonary disease exacerbation, leukocytosis; schizoaffective disorder, hypothyroidism, hyperlipidemia, hypertension. Positive blood culture with CoANS P: Continue Zithromax & Meropenem X 1 day Subjective ROS Limited/Unobtainable: Yes Constitutional: Reports: no symptoms, other - doing better Respiratory: Reports: no symptoms Allergies: Coded Allergies: No Known Allergies (Unverified , 05/22/18) Objective Vital Signs Last 24 Hour Vital Signs Date Time Temp Pulse Resp B/P (MAP) Pulse Ox O2 Delivery O2 Flow Rate FiO2 06/02/18 08:00 97.6 78 11 125/82 (96) 100 06/02/18 08:00 89 06/02/18 08:00 Room Air 06/02/18 07:19 89 22 97 Nasal Cannula 2.0 28 06/02/18 07:10 85 23 92 Nasal Cannula 2.0 28 06/02/18 04:00 79 06/02/18 04:00 Room Air 06/02/18 04:00 97.9 85 13 116/68 (84) 93 06/02/18 01:28 74 26 98 Room Air 21 06/02/18 01:17 78 23 92 Room Air 21 06/02/18 00:00 70 06/02/18 00:00 Room Air 06/02/18 00:00 97.8 77 24 122/75 (91) 92 06/01/18 20:00 76 06/01/18 20:00 Room Air 06/01/18 20:00 97.4 76 20 114/61 (78) 91 06/01/18 19:14 84 17 97 Room Air 21 06/01/18 19:04 76 22 95 Room Air 21 06/01/18 16:00 Bi-pap 15.0 06/01/18 16:00 96.0 84 20 122/72 (89) 92 06/01/18 16:00 79 06/01/18 14:20 91 29 94 Venturi Mask 14.0 55 06/01/18 14:10 88 27 93 Room Air 06/01/18 12:15 Bi-pap 15.0 06/01/18 12:00 98.2 80 20 136/76 (96) 91 06/01/18 11:44 88 Height (Feet): 5 Height (Inches): 5.00 Weight (Pounds): 172 General Appearance: no acute distress HEENT: mucous membranes moist Respiratory/Chest: other - oyben by nasal cannula, few rhonchi Cardiovascular: normal rate Abdomen: soft, non tender, other - NG tube feeding Extremities: no edema Neurologic/Psychiatric: alert, responsive Laboratory Tests Test 06/01/18 16:10 06/02/18 05:10 06/02/18 09:10 Sodium Level 139 MMOL/L (136-145) Potassium Level 4.6 MMOL/L (3.5-5.1) Chloride Level 100 MMOL/L (98-107) Carbon Dioxide Level 32 MMOL/L (21-32) Anion Gap 7 mmol/L (5-15) Blood Urea Nitrogen 34 mg/dL (7-18) H Creatinine 0.9 MG/DL (0.55-1.30) Estimat Glomerular Filtration Rate > 60 mL/min (>60) Glucose Level 174 MG/DL (74-106) H Uric Acid 6.0 MG/DL (2.6-7.2) Calcium Level 8.8 MG/DL (8.5-10.1) Phosphorus Level 3.1 MG/DL (2.5-4.9) Magnesium Level 2.0 MG/DL (1.8-2.4) Total Bilirubin 0.4 MG/DL (0.2-1.0) Aspartate Amino Transf (AST/SGOT) 34 U/L (15-37) Alanine Aminotransferase (ALT/SGPT) 63 U/L (12-78) Alkaline Phosphatase 80 U/L (46-116) Total Protein 6.8 G/DL (6.4-8.2) Albumin 2.5 G/DL (3.4-5.0) L Globulin 4.3 g/dL Albumin/Globulin Ratio 0.6 (1.0-2.7) L White Blood Count 15.3 K/UL (4.8-10.8) H Red Blood Count 5.17 M/UL (4.20-5.40) Hemoglobin 16.3 G/DL (12.0-16.0) H Hematocrit 48.2 % (37.0-47.0) H Mean Corpuscular Volume 93 FL (80-99) Mean Corpuscular Hemoglobin 31.6 PG (27.0-31.0) H Mean Corpuscular Hemoglobin Concent 33.8 G/DL (32.0-36.0) Red Cell Distribution Width 11.3 % (11.6-14.8) L Platelet Count 183 K/UL (150-450) Mean Platelet Volume 7.9 FL (6.5-10.1) Neutrophils (%) (Auto) 70.1 % (45.0-75.0) Lymphocytes (%) (Auto) 23.1 % (20.0-45.0) Monocytes (%) (Auto) 5.3 % (1.0-10.0) Eosinophils (%) (Auto) 1.0 % (0.0-3.0) Basophils (%) (Auto) 0.5 % (0.0-2.0) Arterial Blood pH 7.487 (7.350-7.450) Arterial Blood Partial Pressure CO2 43.6 mmHg (35.0-45.0) Arterial Blood Partial Pressure O2 62.1 mmHg (75.0-100.0) L Arterial Blood HCO3 32.3 mmol/L (22.0-26.0) H Arterial Blood Oxygen Saturation 92.9 % (95-100) L Arterial Blood Base Excess 7.8 (-2-2) H Rahul Test Positive Current Medications Medications (Trade) Dose Ordered Sig/Salty Route PRN Reason Start Time Stop Time Status Last Admin Dose Admin Acetaminophen (Tylenol) 500 mg Q4H PRN NG Mild Pain/Temp > 100.5 05/27/18 13:09 06/22/18 13:08 05/30/18 10:32 Acetylcysteine (Mucomyst) 100 mg TIDRT N 05/25/18 13:00 06/24/18 12:59 06/02/18 07:18 Albuterol/ Ipratropium (Albuterol/ Ipratropium) 3 ml Q4H PRN HHN Shortness of Breath 05/28/18 22:00 06/02/18 21:59 05/29/18 08:26 Albuterol/ Ipratropium (Albuterol/ Ipratropium) 3 ml Q6HRT N 05/29/18 13:00 06/03/18 12:59 06/02/18 07:18 Azithromycin (Zithromax) 250 mg DAILY NG 05/31/18 09:00 06/07/18 08:59 06/02/18 08:11 Dextrose 1,000 ml @ 100 mls/hr Q10H IV 05/31/18 10:15 06/30/18 10:14 06/02/18 02:50 Fluoxetine HCl (PROzac) 20 mg DAILY NG 05/28/18 09:00 06/22/18 11:44 06/02/18 08:11 Heparin Sodium (Porcine) (Heparin 5000 units/ml) 5,000 units EVERY 12 HOURS SUBQ 05/22/18 21:00 06/21/18 20:59 06/02/18 08:15 Hydralazine HCl (Apresoline) 10 mg Q4H PRN IV SBP > 170mmHg 05/29/18 16:45 06/28/18 16:44 Meropenem 1 gm/ Sodium Chloride 55 ml @ 110 mls/hr Q8HR IVPB 05/29/18 14:00 06/03/18 13:59 06/02/18 05:56 Methylprednisolone Sodium Succinate (Solu-MEDROL) 30 mg DAILY IVP 06/01/18 09:00 06/23/18 08:59 06/02/18 08:10 Olanzapine (ZyPREXA) 15 mg BEDTIME NG 05/29/18 21:00 06/28/18 20:59 06/01/18 20:41 Migel Cohen MD Jun 02, 2018 10:09
--- NOTE | 2018-06-02 10:19 | NUR ---
NURSE NOTES: Observed pt sleeping on the bed. Arousable by voice. A/O x 3. Denies pain at this time. Reposition done. Bed in the lowest position. Call light within reach. Side rails up x3. Will continue to monitor.
--- NOTE | 2018-06-02 11:49 | NUR ---
RD ASSESSMENT & RECOMMENDATIONS SEE CARE ACTIVITY FOR COMPLETE ASSESSMENT DAILY ESTIMATED NEEDS: Needs based on Pulmonary 62.6kg adj 25-30 kcals/kg 5156-9559 total kcals 1-1.5 g protein/kg 63-94 g total protein 25-30 mL/kg 4415-2097 total fluid mLs NUTRITION DIAGNOSIS: * Swallowing difficulty r/t dysphagia, respiratory status as evidenced by MED ASST recommends to continue nonoral feedings at this time, pt on NGT feeding, pt now on room air, NC prn. * Altered nutrition related lab values R/T prediabetes? clinical condition as evidenced by A1C of 6.0, elev BGs (174 172), pt on solumedrol+ D5 IVF. CURRENT DIET:NPO CURRENT TF:Glucerna 1.2 @ 55ml/hr x 24 hrs PO DIET RECOMMENDATIONS: WHEN SAFE FOR ORAL FEEDS-> CCHO MED, LOW NA/ texture per MED ASST ENTERAL NUTRITION RECOMMENDATIONS: Glucerna 1.2 @55ml /hr x24 hrs to provide 1320ml, 1584 kcal, 79g prot, 1063ml free H2O - Continue current TF - HOB over 30 degrees/ water flush per MD ADDITIONAL RECOMMENDATIONS: * Calibrated bed scale wts * Monitor lytes, replete as needed * Rec SSI- A1C=6.0, on Steroidal med + D5 IVF, on continuous TF . .
--- NOTE | 2018-06-02 11:50 | NUR ---
ST NOTE: SWALLOW STATUS FOLLOWED UP PT'S CONDITIONS. PT SEEN AT BEDSIDE IN AM. ALERT, VERBAL, WITH NC(2L). ABLE TO FOLLOW SIMPLE DIRECTIONS. SAT PT AT UPRIGHT POSITION. PT'S RR, MILDLY INCREASED TO 26-28. GIVEN PO TRIALS: NECTAR THICK(TSP), MILD INCREASED ORAL TRANSIT TIME AND OROPHARYNGEAL TRANSIT TIME, FAIR LARYNGEAL ELEVATION, NO OVERT S/S OF ASPIRATION. HOWEVER, PT SEEMS FATIGUE EASILY. RECEIVED TELEPHONE ORDER VIDEOSWALLOW STUDY FROM , DR. FULTON. DUE TO SCHEDULING CONFLICT, UNABLE TO COMPLETE AT THIS TIME. WILL FOLLOW UP. CONTINUE NGT AND PO TRIALS. D/W RNIMANI
[2018-06-02 12:00] VITALS: BP 113/64
--- NOTE | 2018-06-02 12:09 | General Progress Note ---
Assessment/Plan Problem List: (1) Hypoxia ICD Codes: R09.02 - Hypoxemia SNOMED: 191100261 (2) COPD exacerbation ICD Codes: J44.1 - Chronic obstructive pulmonary disease with (acute) exacerbation SNOMED: 147979222 (3) Hypercapnic respiratory failure, chronic ICD Codes: J96.12 - Chronic respiratory failure with hypercapnia SNOMED: 733149056 (4) Hypoxemia ICD Codes: R09.02 - Hypoxemia SNOMED: 909675217 (5) Benzodiazepine dependence ICD Codes: F13.20 - Sedative, hypnotic or anxiolytic dependence, uncomplicated SNOMED: 331657931 (6) Hypoalbuminemia ICD Codes: E88.09 - Other disorders of plasma-protein metabolism, not elsewhere classified SNOMED: 483212093 Status: progressing Assessment/Plan clinically improving still confused and less lethargic continue suction copd exacerbation renal failure iv hydration per renal very concerned about her condition less lethargic discussed w renal and pulmonary Subjective ROS Limited/Unobtainable: Yes Allergies: Coded Allergies: No Known Allergies (Unverified , 05/22/18) Subjective lehtargic sob Objective Last 24 Hour Vital Signs Date Time Temp Pulse Resp B/P (MAP) Pulse Ox O2 Delivery O2 Flow Rate FiO2 06/02/18 08:00 97.6 78 11 125/82 (96) 100 06/02/18 08:00 89 06/02/18 08:00 Room Air 06/02/18 07:19 89 22 97 Nasal Cannula 2.0 28 06/02/18 07:10 85 23 92 Nasal Cannula 2.0 28 06/02/18 04:00 79 06/02/18 04:00 Room Air 06/02/18 04:00 97.9 85 13 116/68 (84) 93 06/02/18 01:28 74 26 98 Room Air 21 06/02/18 01:17 78 23 92 Room Air 21 06/02/18 00:00 70 06/02/18 00:00 Room Air 06/02/18 00:00 97.8 77 24 122/75 (91) 92 06/01/18 20:00 76 06/01/18 20:00 Room Air 06/01/18 20:00 97.4 76 20 114/61 (78) 91 06/01/18 19:14 84 17 97 Room Air 21 06/01/18 19:04 76 22 95 Room Air 21 06/01/18 16:00 Bi-pap 15.0 06/01/18 16:00 96.0 84 20 122/72 (89) 92 06/01/18 16:00 79 06/01/18 14:20 91 29 94 Venturi Mask 14.0 55 06/01/18 14:10 88 27 93 Room Air 06/01/18 12:15 Bi-pap 15.0 Intake and Output 06/01/18 06/02/18 18:59 06:59 Intake Total 1830 ml 1705 ml Output Total 900 ml 600 ml Balance 930 ml 1105 ml Intake Free Water 60 ml 60 ml IV Total 1110 ml 1205 ml Tube Feeding 660 ml 440 ml Output Urine Total 900 ml 600 ml # Bowel Movements 1 Laboratory Tests 06/01/18 16:10: Sodium Level 139, Potassium Level 4.6, Chloride Level 100, Carbon Dioxide Level 32, Anion Gap 7, Blood Urea Nitrogen 34H, Creatinine 0.9, Estimat Glomerular Filtration Rate > 60, Glucose Level 174H, Uric Acid 6.0, Calcium Level 8.8, Phosphorus Level 3.1, Magnesium Level 2.0, Total Bilirubin 0.4, Aspartate Amino Transf (AST/SGOT) 34, Alanine Aminotransferase (ALT/SGPT) 63, Alkaline Phosphatase 80, Total Protein 6.8, Albumin 2.5L, Globulin 4.3, Albumin/Globulin Ratio 0.6L 06/02/18 05:10: White Blood Count 15.3H, Red Blood Count 5.17, Hemoglobin 16.3H, Hematocrit 48.2H, Mean Corpuscular Volume 93, Mean Corpuscular Hemoglobin 31.6H, Mean Corpuscular Hemoglobin Concent 33.8, Red Cell Distribution Width 11.3L, Platelet Count 183, Mean Platelet Volume 7.9, Neutrophils (%) (Auto) 70.1, Lymphocytes (%) (Auto) 23.1, Monocytes (%) (Auto) 5.3, Eosinophils (%) (Auto) 1.0, Basophils (%) (Auto) 0.5 06/02/18 09:10: Arterial Blood pH 7.487H, Arterial Blood Partial Pressure CO2 43.6, Arterial Blood Partial Pressure O2 62.1L, Arterial Blood HCO3 32.3H, Arterial Blood Oxygen Saturation 92.9L, Arterial Blood Base Excess 7.8H, Rahul Test Positive Height (Feet): 5 Height (Inches): 5.00 Weight (Pounds): 172 Neck: supple Cardiovascular: normal rate Respiratory/Chest: lungs clear Abdomen: soft Margot Dutta MD Jun 02, 2018 12:09
--- NOTE | 2018-06-02 13:28 | Cardiac Electrophysiology PN ---
Assessment/Plan Assessment/Plan 1. Shortness of breath due to COPD. On BIPAP at night and Abx per Dr. Membreno Ruled out for LA. EF 65%. May Need Tracheostomy. No Significant CHF. 2. Elevated white count, likely pneumonia, on BiPAP. Antibiotic per Dr. Cohen. 3. History of psychosis. 4. Sinus tach due to PNA. No fib DW RN and Dr Membreno Subjective Subjective In SR off restraints on nasal cannula but was on BIPAP last night Objective Last 24 Hour Vital Signs Date Time Temp Pulse Resp B/P (MAP) Pulse Ox O2 Delivery O2 Flow Rate FiO2 06/02/18 12:39 84 20 98 Nasal Cannula 2.0 28 06/02/18 12:30 76 20 95 Nasal Cannula 2.0 28 06/02/18 12:00 97.7 82 24 113/64 (80) 95 06/02/18 12:00 79 06/02/18 12:00 Room Air 06/02/18 08:00 97.6 78 11 125/82 (96) 100 06/02/18 08:00 89 06/02/18 08:00 Room Air 06/02/18 07:19 89 22 97 Nasal Cannula 2.0 28 06/02/18 07:10 85 23 92 Nasal Cannula 2.0 28 06/02/18 04:00 79 06/02/18 04:00 Room Air 06/02/18 04:00 97.9 85 13 116/68 (84) 93 06/02/18 01:28 74 26 98 Room Air 21 06/02/18 01:17 78 23 92 Room Air 21 06/02/18 00:00 70 06/02/18 00:00 Room Air 06/02/18 00:00 97.8 77 24 122/75 (91) 92 06/01/18 20:00 76 06/01/18 20:00 Room Air 06/01/18 20:00 97.4 76 20 114/61 (78) 91 06/01/18 19:14 84 17 97 Room Air 21 06/01/18 19:04 76 22 95 Room Air 21 06/01/18 16:00 Bi-pap 15.0 06/01/18 16:00 96.0 84 20 122/72 (89) 92 06/01/18 16:00 79 2/14/19 14:20 91 29 94 Venturi Mask 14.0 55 06/01/18 14:10 88 27 93 Room Air Intake and Output 06/01/18 06/02/18 18:59 06:59 Intake Total 1830 ml 1705 ml Output Total 900 ml 600 ml Balance 930 ml 1105 ml Intake Free Water 60 ml 60 ml IV Total 1110 ml 1205 ml Tube Feeding 660 ml 440 ml Output Urine Total 900 ml 600 ml # Bowel Movements 1 Laboratory Tests Test 06/01/18 16:10 06/02/18 05:10 06/02/18 09:10 Sodium Level 139 MMOL/L (136-145) Potassium Level 4.6 MMOL/L (3.5-5.1) Chloride Level 100 MMOL/L (98-107) Carbon Dioxide Level 32 MMOL/L (21-32) Anion Gap 7 mmol/L (5-15) Blood Urea Nitrogen 34 mg/dL (7-18) H Creatinine 0.9 MG/DL (0.55-1.30) Estimat Glomerular Filtration Rate > 60 mL/min (>60) Glucose Level 174 MG/DL (74-106) H Uric Acid 6.0 MG/DL (2.6-7.2) Calcium Level 8.8 MG/DL (8.5-10.1) Phosphorus Level 3.1 MG/DL (2.5-4.9) Magnesium Level 2.0 MG/DL (1.8-2.4) Total Bilirubin 0.4 MG/DL (0.2-1.0) Aspartate Amino Transf (AST/SGOT) 34 U/L (15-37) Alanine Aminotransferase (ALT/SGPT) 63 U/L (12-78) Alkaline Phosphatase 80 U/L (46-116) Total Protein 6.8 G/DL (6.4-8.2) Albumin 2.5 G/DL (3.4-5.0) L Globulin 4.3 g/dL Albumin/Globulin Ratio 0.6 (1.0-2.7) L White Blood Count 15.3 K/UL (4.8-10.8) H Red Blood Count 5.17 M/UL (4.20-5.40) Hemoglobin 16.3 G/DL (12.0-16.0) H Hematocrit 48.2 % (37.0-47.0) H Mean Corpuscular Volume 93 FL (80-99) Mean Corpuscular Hemoglobin 31.6 PG (27.0-31.0) H Mean Corpuscular Hemoglobin Concent 33.8 G/DL (32.0-36.0) Red Cell Distribution Width 11.3 % (11.6-14.8) L Platelet Count 183 K/UL (150-450) Mean Platelet Volume 7.9 FL (6.5-10.1) Neutrophils (%) (Auto) 70.1 % (45.0-75.0) Lymphocytes (%) (Auto) 23.1 % (20.0-45.0) Monocytes (%) (Auto) 5.3 % (1.0-10.0) Eosinophils (%) (Auto) 1.0 % (0.0-3.0) Basophils (%) (Auto) 0.5 % (0.0-2.0) Arterial Blood pH 7.487 (7.350-7.450) Arterial Blood Partial Pressure CO2 43.6 mmHg (35.0-45.0) Arterial Blood Partial Pressure O2 62.1 mmHg (75.0-100.0) L Arterial Blood HCO3 32.3 mmol/L (22.0-26.0) H Arterial Blood Oxygen Saturation 92.9 % (95-100) L Arterial Blood Base Excess 7.8 (-2-2) H Rahul Test Positive Objective HEAD AND NECK: No JVD on N/C LUNGS: Coarse rhonchi. CARDIOVASCULAR: Regular S1 and S2 no M/G/R ABDOMEN: Soft. EXTREMITIES: No pitting edema. Zane Ocampo MD Jun 02, 2018 13:28
--- NOTE | 2018-06-02 13:35 | NUR ---
NURSE NOTES: Observed pt sleeping on the bed. Pt is back to room air again, saturating at 90%. Will continue to monitor.
--- NOTE | 2018-06-02 14:03 | NUR ---
NURSE NOTES: Pt desating to 89 and put back NC 2L again.
--- NOTE | 2018-06-02 14:07 | Neurology Progress Note ---
Interim History Interim History Interim History Ms. Whitfield feels well. She is awake, alert and bright. She feels that her mind is clearer. She feels stronger. She is on room air now. She is eager to eat and drink. She is not delusional. She denies any new neurologic symptoms. She is less forgetful. She is much more cooperative. Review of Systems Neuro Review of Systems Benign. Objective Physical Exam Last Vital Signs Date Time Temp Pulse Resp B/P (MAP) Pulse Ox O2 Delivery O2 Flow Rate FiO2 06/02/18 12:39 84 20 98 Nasal Cannula 2.0 28 06/02/18 12:00 97.7 113/64 (80) Laboratory Tests Test 06/01/18 16:10 06/02/18 05:10 06/02/18 09:10 Sodium Level 139 MMOL/L (136-145) Potassium Level 4.6 MMOL/L (3.5-5.1) Chloride Level 100 MMOL/L (98-107) Carbon Dioxide Level 32 MMOL/L (21-32) Anion Gap 7 mmol/L (5-15) Blood Urea Nitrogen 34 mg/dL (7-18) H Creatinine 0.9 MG/DL (0.55-1.30) Estimat Glomerular Filtration Rate > 60 mL/min (>60) Glucose Level 174 MG/DL (74-106) H Uric Acid 6.0 MG/DL (2.6-7.2) Calcium Level 8.8 MG/DL (8.5-10.1) Phosphorus Level 3.1 MG/DL (2.5-4.9) Magnesium Level 2.0 MG/DL (1.8-2.4) Total Bilirubin 0.4 MG/DL (0.2-1.0) Aspartate Amino Transf (AST/SGOT) 34 U/L (15-37) Alanine Aminotransferase (ALT/SGPT) 63 U/L (12-78) Alkaline Phosphatase 80 U/L (46-116) Total Protein 6.8 G/DL (6.4-8.2) Albumin 2.5 G/DL (3.4-5.0) L Globulin 4.3 g/dL Albumin/Globulin Ratio 0.6 (1.0-2.7) L White Blood Count 15.3 K/UL (4.8-10.8) H Red Blood Count 5.17 M/UL (4.20-5.40) Hemoglobin 16.3 G/DL (12.0-16.0) H Hematocrit 48.2 % (37.0-47.0) H Mean Corpuscular Volume 93 FL (80-99) Mean Corpuscular Hemoglobin 31.6 PG (27.0-31.0) H Mean Corpuscular Hemoglobin Concent 33.8 G/DL (32.0-36.0) Red Cell Distribution Width 11.3 % (11.6-14.8) L Platelet Count 183 K/UL (150-450) Mean Platelet Volume 7.9 FL (6.5-10.1) Neutrophils (%) (Auto) 70.1 % (45.0-75.0) Lymphocytes (%) (Auto) 23.1 % (20.0-45.0) Monocytes (%) (Auto) 5.3 % (1.0-10.0) Eosinophils (%) (Auto) 1.0 % (0.0-3.0) Basophils (%) (Auto) 0.5 % (0.0-2.0) Arterial Blood pH 7.487 (7.350-7.450) Arterial Blood Partial Pressure CO2 43.6 mmHg (35.0-45.0) Arterial Blood Partial Pressure O2 62.1 mmHg (75.0-100.0) L Arterial Blood HCO3 32.3 mmol/L (22.0-26.0) H Arterial Blood Oxygen Saturation 92.9 % (95-100) L Arterial Blood Base Excess 7.8 (-2-2) H Rahul Test Positive Neurologic Exam Objective PHYSICAL EXAMINATION: GENERAL: She is a well-developed, well-nourished, pleasant lady, lying in bed. HEAD: Normocephalic and atraumatic. EENT: Examination benign NECK: No neck rigidity was observed. NEUROLOGICAL EXAMINATION: MENTAL STATUS EXAMINATION: She was awake and alert. She was oriented to self, [facility] [place] and June 02. She did not know the year. She was able to recall 3/3 words immediately and could remember 2/3 after 1 minute and after 3 minutes. She was able to remember president [place] through Sukhwinder only. Her mathematical skills were impaired. Her visuospatial function was also impaired. SPEECH: She had a no dysarthria. LANGUAGE: She had a mild anomia for low-frequency words. CRANIAL NERVE EXAMINATION: II: The visual beltran were intact on confrontation testing. III, IV & : The external ocular movements were full and the pupils 3 mm in diameter, equal, round, regular, and reactive to light. V: She had normal facial sensations, and the temporales, masseters, and pterygoids functioned normally. VII: She had normal facial expressions and no facial asymmetry. VIII: She was able to hear well bilaterally and had no nystagmus. IX: The palate moved symmetrically on phonation. X: She had no hoarseness of voice. XI: The sternocleidomastoids and trapezii functioned normally. XII: The tongue was in the midline without any fasciculations or atrophy. MOTOR SYSTEM: The tone was normal in all four extremities. Examination of muscle mass revealed no focal wasting. Examination of power revealed G 5/5 power in the upper extremities. She also had G 5/5 in the lower extremities except for G 4/5 in the iliopsoas with poor effort. SENSORY EXAMINATION: She had intact sensations to light touch but did not cooperate for further sensory testing. COORDINATION: She performed well on [id number] testing. She was unable to perform [id number] testing. REFLEXES: 1+ and bilaterally symmetrical at the biceps, triceps, brachioradialis, and knees, 0 at both ankles. The plantar responses were flexor bilaterally. STANCE: Could not be tested. GAIT: Could not be tested. Impression/Recommendations Diagnostic Impression 1. Ms Leigh Ann Whitfield is a 67-year-old, right-handed, lady, who does have a past history of hypertension, dyslipidemia, chronic obstructive pulmonary disease, hypothyroidism, schizoaffective disorder, and recent falls, who was hospitalized on 05/22/2018 for an altered mental state and a fall at her board and alf. She was found to be hypoxic, hypercapnic, and had a significant leukocytosis. Since she has been in the hospital, she has improved. 2. She feels well. She is awake, alert and bright. She feels that her mind is clearer. She feels stronger. She is on room air now. She is eager to eat and drink. She is not delusional. She denies any new neurologic symptoms. She is less forgetful. She is much more cooperative. 3. On neurological examination, at this time, she is disoriented to the year. Has problems with recent and remote memory, visuospatial function and higher cognitive function. Has a mild anomia, has proximal lower extremities weakness, an has globally diminished deep tendon reflexes. 4. Laboratory data on my initial evaluation revealed that she had a significant leukocytosis with a WBC count of 19,700. Her chemistry panel revealed that her uric acid level was elevated at 8.2, magnesium was low at 1.6. ProBNP that was elevated at 186, albumin was low at 2.5. Her B12 level was normal at 924. Her folate level was normal at 40.6. Her TSH was normal at 1.92 with a free T4 of 1.13. The Hemoglobin A1c was at 6%. Latest arterial blood gas revealed a pH at 7.37, pCO2 at 62, and pO2 at 56. Her urinalysis revealed 1+ leukocyte esterase, 0-2 red blood cells, and 2-4 white blood cells per high-power field. 5. Further laboratory tests have revealed a minimally elevated ammonia at 34. 6. The last ABG done on 06/02/18 revealed a pCO2 at 44 but a low pO2 at 62. 7. Her leukocytosis has improved with a WBC count of 15,500 on 06/02/18. Her HB is still elevated at 16.3G 8. The CT scan of the brain without contrast revealed atrophy and some deep white matter changes, but no acute pathology. 9. The EGG done on 05/24/18 was normal in the awake and drowsy states. 10. The patient's history, neurological examination, laboratory data, and imaging studies are most compatible with a toxic metabolic encephalopathy related to the hypoxia, hypercapnia, and an infectious process. Her encephalopathy is better today. 11. She is not psychotic today. 12. She is eager to eat and drink. Recommendations 1. Continue present management. 2. Swallowing study by speech pathologist. 3. Aggressive treatment of the patient's respiratory failure as per Dr. Membreno. 4. Aggressive treatment of the patient's infectious process as per Dr. Cohen. 5. Correction of fluid and electrolyte status. 6. Observe closely. Fransico Bolton M.D., M.S.P.HFransico Agudelo MD Jun 02, 2018 14:07
[2018-06-02 16:00] VITALS: BP 129/64
--- NOTE | 2018-06-02 16:09 | NUR ---
HAND-OFF: Report given to RAUL Rizo. No acute distress noted at this time.
--- NOTE | 2018-06-02 16:10 | NUR ---
NURSE NOTES: Bedside report received from RAUL Winters. Patient is x3, able to make needs known, follows commands. Slight inappropriate responses to questions, very talkative. monitoring analyst showing NSR. 2L NC, sating low 90's, no s/s of distress. L/NGT running Glucerna 1.2 @ 55, no residual, tolerating well. Purwick is intact draining yellow urine. Skin is clean and dry, patient turned. RAC 20g running D5W @ 100; asymptomatic. Labs OK, ABG aware. Bed is locked in lowest position, SR x3, call mg within reach, bed alarm on. Will continue to monitor and follow with plan of care.
--- NOTE | 2018-06-02 17:54 | Nephrology Progress Note ---
Assessment/Plan Problem List: (1) Proteinuria (2) Hypoalbuminemia (3) COPD exacerbation (4) Schizoaffective disorder (5) Azotemia Assessment rissing BUN and Hgb admitted with exacerbation COPD and Hypoxia High WBCs : UTI , Pneumonia Proteinuria and HypoAlbuminemia Plan down on D5w rate doing poorly MS down multifactorial BIPAP Antibiotics 24 h urine proteins CAN NOT BE COLLECTED UNLESS FOLEY_ WILL DEFER 2D echo Left ventricular ejection fraction grossly estimated to be 65 %. optimize cardiac status Subjective ROS Limited/Unobtainable: No Constitutional: Reports: malaise Objective Objective Last 24 Hour Vital Signs Date Time Temp Pulse Resp B/P (MAP) Pulse Ox O2 Delivery O2 Flow Rate FiO2 06/02/18 12:39 84 20 98 Nasal Cannula 2.0 28 06/02/18 12:30 76 20 95 Nasal Cannula 2.0 28 06/02/18 12:00 97.7 82 24 113/64 (80) 95 06/02/18 12:00 79 06/02/18 12:00 Room Air 06/02/18 08:00 97.6 78 11 125/82 (96) 100 06/02/18 08:00 89 06/02/18 08:00 Room Air 06/02/18 07:19 89 22 97 Nasal Cannula 2.0 28 06/02/18 07:10 85 23 92 Nasal Cannula 2.0 28 06/02/18 04:00 79 06/02/18 04:00 Room Air 06/02/18 04:00 97.9 85 13 116/68 (84) 93 06/02/18 01:28 74 26 98 Room Air 21 06/02/18 01:17 78 23 92 Room Air 21 06/02/18 00:00 70 06/02/18 00:00 Room Air 06/02/18 00:00 97.8 77 24 122/75 (91) 92 06/01/18 20:00 76 06/01/18 20:00 Room Air 06/01/18 20:00 97.4 76 20 114/61 (78) 91 06/01/18 19:14 84 17 97 Room Air 21 06/01/18 19:04 76 22 95 Room Air 21 Intake and Output 06/01/18 06/02/18 19:00 07:00 Intake Total 1730 ml 1890 ml Output Total 900 ml 600 ml Balance 830 ml 1290 ml Intake Free Water 60 ml 90 ml IV Total 1010 ml 1305 ml Tube Feeding 660 ml 495 ml Output Urine Total 900 ml 600 ml # Bowel Movements 1 Laboratory Tests 06/02/18 05:10: White Blood Count 15.3H, Red Blood Count 5.17, Hemoglobin 16.3H, Hematocrit 48.2H, Mean Corpuscular Volume 93, Mean Corpuscular Hemoglobin 31.6H, Mean Corpuscular Hemoglobin Concent 33.8, Red Cell Distribution Width 11.3L, Platelet Count 183, Mean Platelet Volume 7.9, Neutrophils (%) (Auto) 70.1, Lymphocytes (%) (Auto) 23.1, Monocytes (%) (Auto) 5.3, Eosinophils (%) (Auto) 1.0, Basophils (%) (Auto) 0.5 06/02/18 09:10: Arterial Blood pH 7.487H, Arterial Blood Partial Pressure CO2 43.6, Arterial Blood Partial Pressure O2 62.1L, Arterial Blood HCO3 32.3H, Arterial Blood Oxygen Saturation 92.9L, Arterial Blood Base Excess 7.8H, Rahul Test Positive Height (Feet): 5 Height (Inches): 5.00 Weight (Pounds): 172 Objective no change Seamus Morfin MD Jun 02, 2018 17:54
[2018-06-02 20:00] VITALS: BP 120/73
[2018-06-02] MEDS: OLANZapine 10mg tab NG SCH (20:31)
--- NOTE | 2018-06-02 20:38 | General Progress Note ---
Assessment/Plan Problem List: (1) Schizoaffective disorder ICD Codes: F25.9 - Schizoaffective disorder, unspecified SNOMED: 94046231 (2) Acute metabolic encephalopathy ICD Codes: G93.41 - Metabolic encephalopathy SNOMED: 11915943, 503054792 Assessment/Plan cont prozac 20mg po qam cont zyprexa 15mg po qhs provided ro/st the pt lacks capacity to sign consent forms Subjective Neurologic/Psychiatric: Reports: anxiety, depressed Allergies: Coded Allergies: No Known Allergies (Unverified , 05/22/18) Subjective the pt is agitated the pt is confused the pt has waxing and waning of consciousness/more alert today Objective Last 24 Hour Vital Signs Date Time Temp Pulse Resp B/P (MAP) Pulse Ox O2 Delivery O2 Flow Rate FiO2 06/02/18 20:21 79 20 96 Nasal Cannula 2.0 28 06/02/18 20:10 80 20 Nasal Cannula 2.0 28 06/02/18 20:07 Nasal Cannula 2.0 28 06/02/18 20:07 95 Nasal Cannula 2.0 28 06/02/18 20:06 80 20 95 Nasal Cannula 2.0 28 06/02/18 16:00 97.2 89 20 129/64 (85) 92 06/02/18 16:00 88 06/02/18 16:00 Nasal Cannula 2.0 06/02/18 12:39 84 20 98 Nasal Cannula 2.0 28 06/02/18 12:30 76 20 95 Nasal Cannula 2.0 28 06/02/18 12:00 97.7 82 24 113/64 (80) 95 06/02/18 12:00 79 06/02/18 12:00 Room Air 06/02/18 08:00 97.6 78 11 125/82 (96) 100 06/02/18 08:00 89 06/02/18 08:00 Room Air 06/02/18 07:19 89 22 97 Nasal Cannula 2.0 28 06/02/18 07:10 85 23 92 Nasal Cannula 2.0 28 06/02/18 04:00 79 06/02/18 04:00 Room Air 06/02/18 04:00 97.9 85 13 116/68 (84) 93 06/02/18 01:28 74 26 98 Room Air 21 06/02/18 01:17 78 23 92 Room Air 21 06/02/18 00:00 70 06/02/18 00:00 Room Air 06/02/18 00:00 97.8 77 24 122/75 (91) 92 Intake and Output 06/01/18 06/02/18 19:00 07:00 Intake Total 1730 ml 1890 ml Output Total 900 ml 600 ml Balance 830 ml 1290 ml Intake Free Water 60 ml 90 ml IV Total 1010 ml 1305 ml Tube Feeding 660 ml 495 ml Output Urine Total 900 ml 600 ml # Bowel Movements 1 Laboratory Tests 06/02/18 05:10: White Blood Count 15.3H, Red Blood Count 5.17, Hemoglobin 16.3H, Hematocrit 48.2H, Mean Corpuscular Volume 93, Mean Corpuscular Hemoglobin 31.6H, Mean Corpuscular Hemoglobin Concent 33.8, Red Cell Distribution Width 11.3L, Platelet Count 183, Mean Platelet Volume 7.9, Neutrophils (%) (Auto) 70.1, Lymphocytes (%) (Auto) 23.1, Monocytes (%) (Auto) 5.3, Eosinophils (%) (Auto) 1.0, Basophils (%) (Auto) 0.5 06/02/18 09:10: Arterial Blood pH 7.487H, Arterial Blood Partial Pressure CO2 43.6, Arterial Blood Partial Pressure O2 62.1L, Arterial Blood HCO3 32.3H, Arterial Blood Oxygen Saturation 92.9L, Arterial Blood Base Excess 7.8H, Rahul Test Positive Height (Feet): 5 Height (Inches): 5.00 Weight (Pounds): 172 Reagan Marshall MD Jun 02, 2018 20:38
--- NOTE | 2018-06-02 20:41 | General Progress Note ---
Assessment/Plan Assessment/Plan Assessment and Recs: # Leukocytosis - is likely related to infection/pna --> smear has been reviewed and only 1% metamyelocytes noted, not significant finding --> esr and crp elevated --> wbc trend : 19--> 22--> 21--> 20-->14-->15 --> abx as per Dr. Cohen, currently on cefepime # Elevated d-dimer - r/o dvt of lower ext --> venous duplex negative scan --> likely elevated due to many possible reasons --> CXR 05/27 Elevated right hemidiaphragm. Bibasilar lung atelectasis. ->05/31: Bilateral lower lobe atelectasis and consolidation, improved since prior study of 05/26/2018 but persistent # Hypoxemia potentially copd related --> off bipap at this time --> bipap at night as per pulm # Hypercarbia # Benzodiazepine dependence # Psychosis # Sinus tach --> as per Dr. Ocampo The timing of this note does not necessarily reflect the time of the patient was seen. Greatly appreciate consultation! Subjective Allergies: Coded Allergies: No Known Allergies (Unverified , 05/22/18) Subjective 2: on venturi mask, no new changes, mild fever today, no chills 2: Pt is seen by bedside, awake, comfortable, wbc trending up 05/25: hgb and wbc trending up, seen in the room, awake, bipap, no fevers or cills , 05/26: no new changes, no fever, no chills, Back on BIPAP 05/29:seen by bedside in restraints. BP is elevated, CXR is reviewed, no acute findings, hgb trending up. 05/30: awake, comfortable, no acute distress, wbc 20, hgb still trending up at 19 today. 05/31: seen by bedside, awake, comfortable, no acute distress, 06/01: seen y bedside, awake, comfortable, no acute distress, wbc and hgb trending down. wbc 14, hgb 17. 06/02: Pt is resting in bed, on nasal cannula, was on BIPAP last night, wbc 15 Objective Last 24 Hour Vital Signs Date Time Temp Pulse Resp B/P (MAP) Pulse Ox O2 Delivery O2 Flow Rate FiO2 06/02/18 20:21 79 20 96 Nasal Cannula 2.0 28 06/02/18 20:10 80 20 Nasal Cannula 2.0 28 06/02/18 20:07 Nasal Cannula 2.0 28 06/02/18 20:07 95 Nasal Cannula 2.0 28 06/02/18 20:06 80 20 95 Nasal Cannula 2.0 28 06/02/18 16:00 97.2 89 20 129/64 (85) 92 06/02/18 16:00 88 06/02/18 16:00 Nasal Cannula 2.0 06/02/18 12:39 84 20 98 Nasal Cannula 2.0 28 06/02/18 12:30 76 20 95 Nasal Cannula 2.0 28 06/02/18 12:00 97.7 82 24 113/64 (80) 95 06/02/18 12:00 79 06/02/18 12:00 Room Air 06/02/18 08:00 97.6 78 11 125/82 (96) 100 06/02/18 08:00 89 06/02/18 08:00 Room Air 06/02/18 07:19 89 22 97 Nasal Cannula 2.0 28 06/02/18 07:10 85 23 92 Nasal Cannula 2.0 28 06/02/18 04:00 79 06/02/18 04:00 Room Air 06/02/18 04:00 97.9 85 13 116/68 (84) 93 06/02/18 01:28 74 26 98 Room Air 21 06/02/18 01:17 78 23 92 Room Air 21 06/02/18 00:00 70 06/02/18 00:00 Room Air 06/02/18 00:00 97.8 77 24 122/75 (91) 92 Intake and Output 06/01/18 06/02/18 19:00 07:00 Intake Total 1730 ml 1890 ml Output Total 900 ml 600 ml Balance 830 ml 1290 ml Intake Free Water 60 ml 90 ml IV Total 1010 ml 1305 ml Tube Feeding 660 ml 495 ml Output Urine Total 900 ml 600 ml # Bowel Movements 1 Laboratory Tests 06/02/18 05:10: White Blood Count 15.3H, Red Blood Count 5.17, Hemoglobin 16.3H, Hematocrit 48.2H, Mean Corpuscular Volume 93, Mean Corpuscular Hemoglobin 31.6H, Mean Corpuscular Hemoglobin Concent 33.8, Red Cell Distribution Width 11.3L, Platelet Count 183, Mean Platelet Volume 7.9, Neutrophils (%) (Auto) 70.1, Lymphocytes (%) (Auto) 23.1, Monocytes (%) (Auto) 5.3, Eosinophils (%) (Auto) 1.0, Basophils (%) (Auto) 0.5 06/02/18 09:10: Arterial Blood pH 7.487H, Arterial Blood Partial Pressure CO2 43.6, Arterial Blood Partial Pressure O2 62.1L, Arterial Blood HCO3 32.3H, Arterial Blood Oxygen Saturation 92.9L, Arterial Blood Base Excess 7.8H, Rahul Test Positive Height (Feet): 5 Height (Inches): 5.00 Weight (Pounds): 172 Objective General Appearance: no apparent distress, GCS 15, non-toxic, other - sleepy Head: normocephalic, atraumatic Eyes: bilateral eye normal inspection, bilateral eye PERRL ENT: hearing grossly normal, normal pharynx, no angioedema, normal voice Neck: full range of motion, supple/symm/no masses Respiratory: chest non-tender, lungs clear, normal breath sounds Cardiovascular: regular rate, rhythm, no edema Gastrointestinal: normal bowel sounds, non tender Musculoskeletal: back normal, gait/station normal Jorje Troy MD Jun 02, 2018 20:41
--- NOTE | 2018-06-02 21:17 | Pulmonology Progress Note ---
Assessment/Plan Assessment/Plan Pulmonary Progress Note Problems: (1) COPD exacerbation (2) Hypercapnic respiratory failure, chronic (3) Hypoxia (4) Benzodiazepine dependence (5) Hypercarbia (6) Schizoaffective disorder Assessment/Plan ASSESSMENT: The patient is a 67-year-old female smoker with history of chronic obstructive pulmonary disease, assisted living resident, hypertension, hyperlipidemia, hypothyroidism, presenting after a fall, respiratory distress, likely exacerbation of chronic obstructive pulmonary disease and urinary tract infection. PROBLEM LIST: 1. Acute on chronic hypercapnic respiratory failure. 2. Chronic obstructive pulmonary disease with acute exacerbation. 3. Urinary tract infection ( alpha hemolytic strep) 4. CoNS in blood likely contaminant 5. Leukocytosis secondary to above and steroids 6. Questionable fall. 7. History of psychiatric disorder. 8. Hypertension, hyperlipidemia, hypothyroidism. 9. Mild elevation of D-dimer. 10. Erythrocytosis & likely hemoconcentration 11. Elevated BUN TREATMENT PLAN: 1. TTE with BUBBLE 2. Optimize pulmonary hygiene/mobilize as tolerated. 3. BiPAP 12/5 qHS and PRN 4. Titrate FiO2 to keep saturations greater than 90% --> attempt to wean off HFO2 today 5. RTC and PRN DuoNeb + MUCOMYST + CPT 6. Decrease SM to 20 IV qDaily (D9) 7. Abx per ID 8. NPO while on BiPAP, TF's while off, continue WATER COMMISSIONER therapy, not ready for PO yet 9. Monitor volumes and renal function, IVF per renal 10. F/U FOBT 11. DVT prophylaxis with heparin subcutaneous. 12. F/U neuro & psych recs, monitor MS, minimize sedative 13. The patient should have outpatient workup including pulmonary function tests Subjective Allergies: Coded Allergies: No Known Allergies (Unverified , 05/22/18) Subjective AFVSS BiPAP ON now on VM - taken off by me ---> RA sat after 5 min 91% Lethargic but more arousable CT CAP noted - chest cuts reviewed by me with R > L basilar atx vs resolving infiltrates some bxtsis No cough + SOB no wheezing no CP no FC Objective Vital Signs Noted General Appearance: cachetic, other - lethargic HEENT: normocephalic, atraumatic, anicteric, mucous membranes moist Respiratory/Chest: chest wall non-tender, lungs clear, normal breath sounds, no respiratory distress, no accessory muscle use Cardiovascular: normal peripheral pulses, normal rate, regular rhythm Abdomen: normal bowel sounds, soft, non tender, no organomegaly, non distended , no mass Extremities: no cyanosis, no clubbing, no edema Laboratory Tests 06/01/18 04:25: White Blood Count 14.0H, Red Blood Count 5.61H, Hemoglobin 17.4H, Hematocrit 53.4H, Mean Corpuscular Volume 95, Mean Corpuscular Hemoglobin 31.1H, Mean Corpuscular Hemoglobin Concent 32.6, Red Cell Distribution Width 11.8, Platelet Count 196, Mean Platelet Volume 7.0, Neutrophils (%) (Auto) 68.2, Lymphocytes (% ) (Auto) 23.3, Monocytes (%) (Auto) 7.5, Eosinophils (%) (Auto) 0.6, Basophils ( %) (Auto) 0.4 06/01/18 04:30: Stool Occult Blood [Pending] Current Medications Medications (Trade) Dose Ordered Sig/Salty Route PRN Reason Start Time Stop Time Status Last Admin Dose Admin Acetaminophen (Tylenol) 500 mg Q4H PRN NG Mild Pain/Temp > 100.5 05/27/18 13:09 06/22/18 13:08 05/30/18 10:32 Acetylcysteine (Mucomyst) 100 mg TIDRT N 05/25/18 13:00 06/24/18 12:59 06/01/18 07:53 Albuterol/ Ipratropium (Albuterol/ Ipratropium) 3 ml Q4H PRN N Shortness of Breath 05/28/18 22:00 06/02/18 21:59 05/29/18 08:26 Albuterol/ Ipratropium (Albuterol/ Ipratropium) 3 ml Q6HRT N 05/29/18 13:00 06/03/18 12:59 06/01/18 07:53 Azithromycin (Zithromax) 250 mg DAILY NG 05/31/18 09:00 06/07/18 08:59 06/01/18 08:50 Barium Sulfate (Readi-Cat 2) 450 ml NOW PRN ORAL Radiology Procedure 05/31/18 10:00 06/02/18 09:57 Dextrose 1,000 ml @ 100 mls/hr Q10H IV 05/31/18 10:15 06/30/18 10:14 06/01/18 06:04 Fluoxetine HCl (PROzac) 20 mg DAILY NG 05/28/18 09:00 06/22/18 11:44 06/01/18 08:50 Heparin Sodium (Porcine) (Heparin 5000 units/ml) 5,000 units EVERY 12 HOURS SUBQ 05/22/18 21:00 06/21/18 20:59 06/01/18 08:40 Hydralazine HCl (Apresoline) 10 mg Q4H PRN IV SBP > 170mmHg 05/29/18 16:45 06/28/18 16:44 Meropenem 1 gm/ Sodium Chloride 55 ml @ 110 mls/hr Q8HR IVPB 05/29/18 14:00 06/03/18 13:59 06/01/18 06:04 Methylprednisolone Sodium Succinate (Solu-MEDROL) 30 mg DAILY IVP 06/01/18 09:00 06/23/18 08:59 06/01/18 08:42 Olanzapine (ZyPREXA) 15 mg BEDTIME NG 05/29/18 21:00 06/28/18 20:59 05/31/18 20:46 Subjective ROS Limited/Unobtainable: No Allergies: Coded Allergies: No Known Allergies (Unverified , 05/22/18) Objective Last 24 Hour Vital Signs Date Time Temp Pulse Resp B/P (MAP) Pulse Ox O2 Delivery O2 Flow Rate FiO2 06/02/18 20:21 79 20 96 Nasal Cannula 2.0 28 06/02/18 20:10 80 20 Nasal Cannula 2.0 28 06/02/18 20:07 Nasal Cannula 2.0 28 06/02/18 20:07 95 Nasal Cannula 2.0 28 06/02/18 20:06 80 20 95 Nasal Cannula 2.0 28 06/02/18 16:00 97.2 89 20 129/64 (85) 92 06/02/18 16:00 88 06/02/18 16:00 Nasal Cannula 2.0 06/02/18 12:39 84 20 98 Nasal Cannula 2.0 28 06/02/18 12:30 76 20 95 Nasal Cannula 2.0 28 06/02/18 12:00 97.7 82 24 113/64 (80) 95 06/02/18 12:00 79 06/02/18 12:00 Room Air 06/02/18 08:00 97.6 78 11 125/82 (96) 100 06/02/18 08:00 89 06/02/18 08:00 Room Air 06/02/18 07:19 89 22 97 Nasal Cannula 2.0 28 06/02/18 07:10 85 23 92 Nasal Cannula 2.0 28 06/02/18 04:00 79 06/02/18 04:00 Room Air 06/02/18 04:00 97.9 85 13 116/68 (84) 93 06/02/18 01:28 74 26 98 Room Air 21 06/02/18 01:17 78 23 92 Room Air 21 06/02/18 00:00 70 06/02/18 00:00 Room Air 06/02/18 00:00 97.8 77 24 122/75 (91) 92 Intake and Output 06/01/18 06/02/18 19:00 07:00 Intake Total 1730 ml 1890 ml Output Total 900 ml 600 ml Balance 830 ml 1290 ml Intake Free Water 60 ml 90 ml IV Total 1010 ml 1305 ml Tube Feeding 660 ml 495 ml Output Urine Total 900 ml 600 ml # Bowel Movements 1 Laboratory Tests 06/02/18 05:10: White Blood Count 15.3H, Red Blood Count 5.17, Hemoglobin 16.3H, Hematocrit 48.2H, Mean Corpuscular Volume 93, Mean Corpuscular Hemoglobin 31.6H, Mean Corpuscular Hemoglobin Concent 33.8, Red Cell Distribution Width 11.3L, Platelet Count 183, Mean Platelet Volume 7.9, Neutrophils (%) (Auto) 70.1, Lymphocytes (%) (Auto) 23.1, Monocytes (%) (Auto) 5.3, Eosinophils (%) (Auto) 1.0, Basophils (%) (Auto) 0.5 06/02/18 09:10: Arterial Blood pH 7.487H, Arterial Blood Partial Pressure CO2 43.6, Arterial Blood Partial Pressure O2 62.1L, Arterial Blood HCO3 32.3H, Arterial Blood Oxygen Saturation 92.9L, Arterial Blood Base Excess 7.8H, Rahul Test Positive Current Medications Medications (Trade) Dose Ordered Sig/Salty Route PRN Reason Start Time Stop Time Status Last Admin Dose Admin Acetaminophen (Tylenol) 500 mg Q4H PRN NG Mild Pain/Temp > 100.5 05/27/18 13:09 06/22/18 13:08 05/30/18 10:32 Acetylcysteine (Mucomyst) 100 mg TIDRT HHN 05/25/18 13:00 06/24/18 12:59 06/02/18 20:07 Albuterol/ Ipratropium (Albuterol/ Ipratropium) 3 ml Q4H PRN HHN Shortness of Breath 05/28/18 22:00 06/02/18 21:59 05/29/18 08:26 Albuterol/ Ipratropium (Albuterol/ Ipratropium) 3 ml Q6HRT HHN 05/29/18 13:00 06/03/18 12:59 06/02/18 20:07 Azithromycin (Zithromax) 250 mg DAILY NG 05/31/18 09:00 06/07/18 08:59 06/02/18 08:11 Dextrose 1,000 ml @ 50 mls/hr Q20H IV 06/02/18 17:56 07/02/18 17:55 06/02/18 18:15 Fluoxetine HCl (PROzac) 20 mg DAILY NG 05/28/18 09:00 06/22/18 11:44 06/02/18 08:11 Heparin Sodium (Porcine) (Heparin 5000 units/ml) 5,000 units EVERY 12 HOURS SUBQ 05/22/18 21:00 06/21/18 20:59 06/02/18 20:37 Hydralazine HCl (Apresoline) 10 mg Q4H PRN IV SBP > 170mmHg 05/29/18 16:45 06/28/18 16:44 Meropenem 1 gm/ Sodium Chloride 55 ml @ 110 mls/hr Q8HR IVPB 05/29/18 14:00 06/03/18 13:59 06/02/18 14:43 Methylprednisolone Sodium Succinate (Solu-MEDROL) 30 mg DAILY IVP 06/01/18 09:00 06/23/18 08:59 06/02/18 08:10 Olanzapine (ZyPREXA) 15 mg BEDTIME NG 05/29/18 21:00 06/28/18 20:59 06/02/18 20:31 Mele Mccullough MD Jun 02, 2018 21:16
[2018-06-03] VITALS: BP 128/77
[2018-06-03] MEDS: Albuterol/Ipratropium 3ml neb HHN SCH ×5 (01:50→19:20)
[2018-06-03 04:00] VITALS: BP 144/70
[2018-06-03] MEDS: Meropenem 1 GM in NS 55 ML IVPB SCH (05:42)
--- NOTE | 2018-06-03 06:59 | NUR ---
HAND-OFF: Report given to RAUL Glover. Patient is stable, comfortable, no s/s of distress.
--- NOTE | 2018-06-03 07:21 | NUR ---
NURSE NOTES: Received report from RAUL Rizo. Patient is resting in bed, in stable condition. No s/sx of SOB, breathing is even and unlabored on 2 L nasal cannula. NGT noted in position with tube feeding on. Bed is in lowest position, brakes engaged. Call light is kept within easy reach. Will continue to monitor patient.
[2018-06-03 08:00] VITALS: BP 102/60
[2018-06-03] MEDS: Azithromycin 250mg tab NG SCH (09:42)
[2018-06-03] MEDS: Solu-MEDROL 40mg Inj IVP SCH (09:42)
[2018-06-03] MEDS: Heparin 5000 units/ml inj SUBQ SCH ×2 (09:43→21:43)
[2018-06-03 12:00] VITALS: BP 123/60
--- NOTE | 2018-06-03 13:12 | Nephrology Progress Note ---
Assessment/Plan Problem List: (1) Proteinuria (2) Hypoalbuminemia (3) COPD exacerbation (4) Schizoaffective disorder (5) Azotemia Assessment rissing BUN and Hgb resolved admitted with exacerbation COPD and Hypoxia High WBCs : UTI , Pneumonia Proteinuria and HypoAlbuminemia Plan down on D5w rate Pulmonary support BIPAP as needed Antibiotics 24 h urine proteins CAN NOT BE COLLECTED UNLESS FOLEY_ WILL DEFER 2D echo Left ventricular ejection fraction grossly estimated to be 65 %. optimize cardiac status Subjective ROS Limited/Unobtainable: No Constitutional: Reports: malaise, weakness Objective Objective Last 24 Hour Vital Signs Date Time Temp Pulse Resp B/P (MAP) Pulse Ox O2 Delivery O2 Flow Rate FiO2 06/03/18 12:00 97.7 81 22 123/60 (81) 94 06/03/18 12:00 Nasal Cannula 2.0 06/03/18 08:00 Nasal Cannula 2.0 06/03/18 08:00 98.2 86 20 102/60 (74) 94 06/03/18 07:59 82 06/03/18 07:49 90 19 96 Nasal Cannula 2.0 28 06/03/18 07:41 82 25 94 Nasal Cannula 2.0 28 06/03/18 07:41 Nasal Cannula 2.0 28 06/03/18 07:40 94 Nasal Cannula 2.0 28 06/03/18 04:00 Nasal Cannula 2.0 06/03/18 04:00 74 06/03/18 04:00 97.0 73 20 144/70 (94) 98 06/03/18 01:59 73 19 98 Nasal Cannula 2.0 28 06/03/18 01:50 76 18 97 Nasal Cannula 2.0 28 06/03/18 00:00 76 06/03/18 00:00 Nasal Cannula 2.0 06/03/18 00:00 97.0 75 20 128/77 (94) 94 06/02/18 20:21 79 20 96 Nasal Cannula 2.0 28 06/02/18 20:10 80 20 Nasal Cannula 2.0 28 06/02/18 20:07 Nasal Cannula 2.0 28 06/02/18 20:07 95 Nasal Cannula 2.0 28 06/02/18 20:06 80 20 95 Nasal Cannula 2.0 28 06/02/18 20:00 78 2/15/19 20:00 Nasal Cannula 2.0 06/02/18 20:00 97.9 79 20 120/73 (89) 92 06/02/18 16:00 97.2 89 20 129/64 (85) 92 06/02/18 16:00 88 06/02/18 16:00 Nasal Cannula 2.0 Intake and Output 06/02/18 06/03/18 18:59 06:59 Intake Total 1400 ml 1447.5 ml Output Total 2000 ml Balance 1400 ml -552.5 ml Intake Free Water 60 ml 90 ml IV Total 900 ml 697.5 ml Tube Feeding 440 ml 660 ml Output Urine Total 2000 ml Height (Feet): 5 Height (Inches): 5.00 Weight (Pounds): 172 General Appearance: no apparent distress Cardiovascular: tachycardia Respiratory/Chest: decreased breath sounds Abdomen: distended Objective no change Seamus Morfin MD Jun 03, 2018 13:12
--- NOTE | 2018-06-03 13:50 | Cardiac Electrophysiology PN ---
Assessment/Plan Assessment/Plan 1. Shortness of breath due to COPD. On NC now and Abx per Dr. Membreno Ruled out for NH. EF 65%. No Significant CHF. 2. Elevated white count, likely pneumonia, on BiPAP. Antibiotic per Dr. Cohen. 3. History of psychosis. 4. Sinus tach due to PNA. No fib DW RN Subjective Subjective In SR off restraints on nasal cannula for 2nd day. Objective Last 24 Hour Vital Signs Date Time Temp Pulse Resp B/P (MAP) Pulse Ox O2 Delivery O2 Flow Rate FiO2 06/03/18 13:30 76 22 97 Nasal Cannula 2.0 28 06/03/18 13:17 79 23 94 Nasal Cannula 2.0 28 06/03/18 12:00 97.7 81 22 123/60 (81) 94 06/03/18 12:00 Nasal Cannula 2.0 06/03/18 08:00 Nasal Cannula 2.0 06/03/18 08:00 98.2 86 20 102/60 (74) 94 06/03/18 07:59 82 06/03/18 07:49 90 19 96 Nasal Cannula 2.0 28 06/03/18 07:41 82 25 94 Nasal Cannula 2.0 28 06/03/18 07:41 Nasal Cannula 2.0 28 06/03/18 07:40 94 Nasal Cannula 2.0 28 06/03/18 04:00 Nasal Cannula 2.0 06/03/18 04:00 74 06/03/18 04:00 97.0 73 20 144/70 (94) 98 06/03/18 01:59 73 19 98 Nasal Cannula 2.0 28 06/03/18 01:50 76 18 97 Nasal Cannula 2.0 28 06/03/18 00:00 76 06/03/18 00:00 Nasal Cannula 2.0 06/03/18 00:00 97.0 75 20 128/77 (94) 94 06/02/18 20:21 79 20 96 Nasal Cannula 2.0 28 06/02/18 20:10 80 20 Nasal Cannula 2.0 28 06/02/18 20:07 Nasal Cannula 2.0 28 06/02/18 20:07 95 Nasal Cannula 2.0 28 06/02/18 20:06 80 20 95 Nasal Cannula 2.0 28 06/02/18 20:00 78 06/02/18 20:00 Nasal Cannula 2.0 06/02/18 20:00 97.9 79 20 120/73 (89) 92 06/02/18 16:00 97.2 89 20 129/64 (85) 92 06/02/18 16:00 88 06/02/18 16:00 Nasal Cannula 2.0 Intake and Output 06/02/18 06/03/18 18:59 06:59 Intake Total 1400 ml 1447.5 ml Output Total 2000 ml Balance 1400 ml -552.5 ml Intake Free Water 60 ml 90 ml IV Total 900 ml 697.5 ml Tube Feeding 440 ml 660 ml Output Urine Total 2000 ml Objective HEAD AND NECK: No JVD on N/C LUNGS: Coarse rhonchi. CARDIOVASCULAR: Regular S1 and S2 no M/G/R ABDOMEN: Soft. EXTREMITIES: No pitting edema. Zane Ocampo MD Jun 03, 2018 13:50
--- NOTE | 2018-06-03 14:05 | Pulmonology Progress Note ---
Assessment/Plan Assessment/Plan Pulmonary Progress Note Problems: (1) COPD exacerbation (2) Hypercapnic respiratory failure, chronic (3) Hypoxia (4) Benzodiazepine dependence (5) Hypercarbia (6) Schizoaffective disorder Assessment/Plan ASSESSMENT: The patient is a 67-year-old female smoker with history of chronic obstructive pulmonary disease, assisted living resident, hypertension, hyperlipidemia, hypothyroidism, presenting after a fall, respiratory distress, likely exacerbation of chronic obstructive pulmonary disease and urinary tract infection. PROBLEM LIST: 1. Acute on chronic hypercapnic respiratory failure. 2. Chronic obstructive pulmonary disease with acute exacerbation. 3. Urinary tract infection ( alpha hemolytic strep) 4. CoNS in blood likely contaminant 5. Leukocytosis secondary to above and steroids 6. Questionable fall. 7. History of psychiatric disorder. 8. Hypertension, hyperlipidemia, hypothyroidism. 9. Mild elevation of D-dimer. 10. Erythrocytosis & likely hemoconcentration 11. Elevated BUN TREATMENT PLAN: 1. TTE with BUBBLE 2. Optimize pulmonary hygiene/mobilize as tolerated. 3. BiPAP 12/5 qHS and PRN 4. Titrate FiO2 to keep saturations greater than 90% --> attempt to wean off HFO2 today 5. RTC and PRN DuoNeb + MUCOMYST + CPT 6. Decrease SM to 20 IV qDaily (D9) 7. Abx per ID 8. NPO while on BiPAP, TF's while off, continue PRODUCER ASSISTANT therapy, not ready for PO yet 9. Monitor volumes and renal function, IVF per renal 10. F/U FOBT 11. DVT prophylaxis with heparin subcutaneous. 12. F/U neuro & psych recs, monitor MS, minimize sedative 13. The patient should have outpatient workup including pulmonary function tests Subjective Allergies: Coded Allergies: No Known Allergies (Unverified , 05/22/18) Subjective AFVSS BiPAP ON now on VM - taken off by me ---> RA sat after 5 min 91% Lethargic but more arousable CT CAP noted - chest cuts reviewed by me with R > L basilar atx vs resolving infiltrates some bxtsis No cough + SOB no wheezing no CP no FC Objective Vital Signs Noted General Appearance: cachetic, other - lethargic HEENT: normocephalic, atraumatic, anicteric, mucous membranes moist Respiratory/Chest: chest wall non-tender, lungs clear, normal breath sounds, no respiratory distress, no accessory muscle use Cardiovascular: normal peripheral pulses, normal rate, regular rhythm Abdomen: normal bowel sounds, soft, non tender, no organomegaly, non distended , no mass Extremities: no cyanosis, no clubbing, no edema Laboratory Tests 06/01/18 04:25: White Blood Count 14.0H, Red Blood Count 5.61H, Hemoglobin 17.4H, Hematocrit 53.4H, Mean Corpuscular Volume 95, Mean Corpuscular Hemoglobin 31.1H, Mean Corpuscular Hemoglobin Concent 32.6, Red Cell Distribution Width 11.8, Platelet Count 196, Mean Platelet Volume 7.0, Neutrophils (%) (Auto) 68.2, Lymphocytes (% ) (Auto) 23.3, Monocytes (%) (Auto) 7.5, Eosinophils (%) (Auto) 0.6, Basophils ( %) (Auto) 0.4 06/01/18 04:30: Stool Occult Blood [Pending] Current Medications Medications (Trade) Dose Ordered Sig/Salty Route PRN Reason Start Time Stop Time Status Last Admin Dose Admin Acetaminophen (Tylenol) 500 mg Q4H PRN NG Mild Pain/Temp > 100.5 05/27/18 13:09 06/22/18 13:08 05/30/18 10:32 Acetylcysteine (Mucomyst) 100 mg TIDRT N 05/25/18 13:00 06/24/18 12:59 06/01/18 07:53 Albuterol/ Ipratropium (Albuterol/ Ipratropium) 3 ml Q4H PRN N Shortness of Breath 05/28/18 22:00 06/02/18 21:59 05/29/18 08:26 Albuterol/ Ipratropium (Albuterol/ Ipratropium) 3 ml Q6HRT N 05/29/18 13:00 06/03/18 12:59 06/01/18 07:53 Azithromycin (Zithromax) 250 mg DAILY NG 05/31/18 09:00 06/07/18 08:59 06/01/18 08:50 Barium Sulfate (Readi-Cat 2) 450 ml NOW PRN ORAL Radiology Procedure 05/31/18 10:00 06/02/18 09:57 Dextrose 1,000 ml @ 100 mls/hr Q10H IV 05/31/18 10:15 06/30/18 10:14 06/01/18 06:04 Fluoxetine HCl (PROzac) 20 mg DAILY NG 05/28/18 09:00 06/22/18 11:44 06/01/18 08:50 Heparin Sodium (Porcine) (Heparin 5000 units/ml) 5,000 units EVERY 12 HOURS SUBQ 05/22/18 21:00 06/21/18 20:59 06/01/18 08:40 Hydralazine HCl (Apresoline) 10 mg Q4H PRN IV SBP > 170mmHg 05/29/18 16:45 06/28/18 16:44 Meropenem 1 gm/ Sodium Chloride 55 ml @ 110 mls/hr Q8HR IVPB 05/29/18 14:00 06/03/18 13:59 06/01/18 06:04 Methylprednisolone Sodium Succinate (Solu-MEDROL) 30 mg DAILY IVP 06/01/18 09:00 06/23/18 08:59 06/01/18 08:42 Olanzapine (ZyPREXA) 15 mg BEDTIME NG 05/29/18 21:00 06/28/18 20:59 05/31/18 20:46 Subjective ROS Limited/Unobtainable: No Allergies: Coded Allergies: No Known Allergies (Unverified , 05/22/18) Objective Last 24 Hour Vital Signs Date Time Temp Pulse Resp B/P (MAP) Pulse Ox O2 Delivery O2 Flow Rate FiO2 06/03/18 13:30 76 22 97 Nasal Cannula 2.0 28 06/03/18 13:17 79 23 94 Nasal Cannula 2.0 28 06/03/18 12:00 97.7 81 22 123/60 (81) 94 06/03/18 12:00 Nasal Cannula 2.0 06/03/18 11:51 79 06/03/18 08:00 Nasal Cannula 2.0 06/03/18 08:00 98.2 86 20 102/60 (74) 94 06/03/18 07:59 82 06/03/18 07:49 90 19 96 Nasal Cannula 2.0 28 06/03/18 07:41 82 25 94 Nasal Cannula 2.0 28 06/03/18 07:41 Nasal Cannula 2.0 28 06/03/18 07:40 94 Nasal Cannula 2.0 28 06/03/18 04:00 Nasal Cannula 2.0 06/03/18 04:00 74 06/03/18 04:00 97.0 73 20 144/70 (94) 98 06/03/18 01:59 73 19 98 Nasal Cannula 2.0 28 06/03/18 01:50 76 18 97 Nasal Cannula 2.0 28 06/03/18 00:00 76 06/03/18 00:00 Nasal Cannula 2.0 06/03/18 00:00 97.0 75 20 128/77 (94) 94 06/02/18 20:21 79 20 96 Nasal Cannula 2.0 28 06/02/18 20:10 80 20 Nasal Cannula 2.0 28 06/02/18 20:07 Nasal Cannula 2.0 28 06/02/18 20:07 95 Nasal Cannula 2.0 28 06/02/18 20:06 80 20 95 Nasal Cannula 2.0 28 06/02/18 20:00 78 06/02/18 20:00 Nasal Cannula 2.0 06/02/18 20:00 97.9 79 20 120/73 (89) 92 06/02/18 16:00 97.2 89 20 129/64 (85) 92 06/02/18 16:00 88 06/02/18 16:00 Nasal Cannula 2.0 Intake and Output 06/02/18 06/03/18 18:59 06:59 Intake Total 1400 ml 1447.5 ml Output Total 2000 ml Balance 1400 ml -552.5 ml Intake Free Water 60 ml 90 ml IV Total 900 ml 697.5 ml Tube Feeding 440 ml 660 ml Output Urine Total 2000 ml Current Medications Medications (Trade) Dose Ordered Sig/Salty Route PRN Reason Start Time Stop Time Status Last Admin Dose Admin Acetaminophen (Tylenol) 500 mg Q4H PRN NG Mild Pain/Temp > 100.5 05/27/18 13:09 06/22/18 13:08 05/30/18 10:32 Acetylcysteine (Mucomyst) 100 mg TIDRT [facility] 05/25/18 13:00 06/24/18 12:59 06/03/18 13:19 Albuterol/ Ipratropium (Albuterol/ Ipratropium) 3 ml Q6HRT [facility] 06/03/18 13:45 06/08/18 13:44 Azithromycin (Zithromax) 250 mg DAILY NG 05/31/18 09:00 06/03/18 23:59 06/03/18 09:42 Dextrose 1,000 ml @ 50 mls/hr Q20H IV 06/02/18 17:56 07/02/18 17:55 06/03/18 13:36 Fluoxetine HCl (PROzac) 20 mg DAILY NG 05/28/18 09:00 06/22/18 11:44 06/03/18 09:42 Heparin Sodium (Porcine) (Heparin 5000 units/ml) 5,000 units EVERY 12 HOURS SUBQ 05/22/18 21:00 06/21/18 20:59 06/03/18 09:43 Hydralazine HCl (Apresoline) 10 mg Q4H PRN IV SBP > 170mmHg 05/29/18 16:45 06/28/18 16:44 Methylprednisolone Sodium Succinate (Solu-MEDROL) 30 mg DAILY IVP 06/01/18 09:00 06/23/18 08:59 06/03/18 09:42 Olanzapine (ZyPREXA) 15 mg BEDTIME NG 05/29/18 21:00 06/28/18 20:59 06/02/18 20:31 Mele Mccullough MD Jun 03, 2018 14:05
--- NOTE | 2018-06-03 15:25 | Neurology Progress Note ---
Interim History Interim History Interim History Ms. Whitfield feels very well. She is awake, alert and bright. She feels that her mind is clear. She feels stronger. She is on 2 L of nasal O2. She is eager to eat and drink. She is not delusional. She denies any new neurologic symptoms. Her memory is better. She is much more cooperative. Review of Systems Neuro Review of Systems Benign. Objective Physical Exam Last Vital Signs Date Time Temp Pulse Resp B/P (MAP) Pulse Ox O2 Delivery O2 Flow Rate FiO2 06/03/18 13:30 76 22 97 Nasal Cannula 2.0 28 06/03/18 12:00 97.7 123/60 (81) Laboratory Tests Test 06/03/18 15:00 C-Reactive Protein, Quantitative Pending Neurologic Exam Objective PHYSICAL EXAMINATION: GENERAL: She is a well-developed, well-nourished, pleasant lady, lying in bed. HEAD: Normocephalic and atraumatic. EENT: Examination benign NECK: No neck rigidity was observed. NEUROLOGICAL EXAMINATION: MENTAL STATUS EXAMINATION: She was awake and alert. She was oriented to self, [facility] and May. She did not know the date or year. She was able to recall 3/3 words immediately and after 1 minute and after 3 minutes. She was able to remember president [place] through Arauz Senior. Her mathematical skills were impaired. Her visuospatial function was also impaired. SPEECH: She had a no dysarthria. LANGUAGE: She had a mild anomia for low-frequency words. CRANIAL NERVE EXAMINATION: II: The visual beltran were intact on confrontation testing. III, IV & : The external ocular movements were full and the pupils 3 mm in diameter, equal, round, regular, and reactive to light. V: She had normal facial sensations, and the temporales, masseters, and pterygoids functioned normally. VII: She had normal facial expressions and no facial asymmetry. VIII: She was able to hear well bilaterally and had no nystagmus. IX: The palate moved symmetrically on phonation. X: She had no hoarseness of voice. XI: The sternocleidomastoids and trapezii functioned normally. XII: The tongue was in the midline without any fasciculations or atrophy. MOTOR SYSTEM: The tone was normal in all four extremities. Examination of muscle mass revealed no focal wasting. Examination of power revealed G 5/5 power in the upper extremities. She also had G 5/5 in the lower extremities except for G 4+/5 in the iliopsoas with poor effort. SENSORY EXAMINATION: She had intact sensations to light touch. COORDINATION: She performed well on [id number] testing. REFLEXES: 1+ and bilaterally symmetrical at the biceps, triceps, brachioradialis, and knees, 0 at both ankles. The plantar responses were flexor bilaterally. STANCE: Could not be tested. GAIT: Could not be tested. Impression/Recommendations Diagnostic Impression 1. Ms Leigh Ann Whitfield is a 67-year-old, right-handed, lady, who does have a past history of hypertension, dyslipidemia, chronic obstructive pulmonary disease, hypothyroidism, schizoaffective disorder, and recent falls, who was hospitalized on 05/22/2018 for an altered mental state and a fall [facility]. She was found to be hypoxic, hypercapnic, and had a significant leukocytosis. Since she has been in the hospital, she has improved. 2. She feels very well. She is awake, alert and bright. She feels that her mind is clear. She feels stronger. She is on 2 L of nasal O2. She is eager to eat and drink. She is not delusional. She denies any new neurologic symptoms. Her memory is better. She is much more cooperative. 3. On neurological examination, at this time, she is disoriented to the exact date and year. Has problems with visuospatial function and higher cognitive function. Has a mild anomia, has proximal lower extremities weakness, an has globally diminished deep tendon reflexes. 4. Laboratory data on my initial evaluation revealed that she had a significant leukocytosis with a WBC count of 19,700. Her chemistry panel revealed that her uric acid level was elevated at 8.2, magnesium was low at 1.6. ProBNP that was elevated at 186, albumin was low at 2.5. Her B12 level was normal at 924. Her folate level was normal at 40.6. Her TSH was normal at 1.92 with a free T4 of 1.13. The Hemoglobin A1c was at 6%. Latest arterial blood gas revealed a pH at 7.37, pCO2 at 62, and pO2 at 56. Her urinalysis revealed 1+ leukocyte esterase, 0-2 red blood cells, and 2-4 white blood cells per high-power field. 5. Further laboratory tests have revealed a minimally elevated ammonia at 34. 6. The last ABG done on 06/02/18 revealed a pCO2 at 44 but a low pO2 at 62. 7. Her leukocytosis has improved with a WBC count of 15,500 on 06/02/18. Her HB is still elevated at 16.3G 8. The CT scan of the brain without contrast revealed atrophy and some deep white matter changes, but no acute pathology. 9. The EGG done on 05/24/18 was normal in the awake and drowsy states. 10. The patient's history, neurological examination, laboratory data, and imaging studies are most compatible with a toxic metabolic encephalopathy related to the hypoxia, hypercapnia, and an infectious process. Her encephalopathy continues to improve. 11. She is not psychotic. 12. She is eager to eat and drink. Recommendations 1. Continue present management. 2. Swallowing study by speech pathologist. 3. Aggressive treatment of the patient's respiratory failure as per Dr. Membreno. 4. Aggressive treatment of the patient's infectious process as per Dr. Cohen. 5. Correction of fluid and electrolyte status. 6. Observe. Fransico Bolton M.D., M.S.P.H. Fransico Bolton MD Jun 03, 2018 15:25
[2018-06-03 16:00] VITALS: BP 130/69
--- NOTE | 2018-06-03 18:39 | General Progress Note ---
Assessment/Plan Problem List: (1) Hypoxia ICD Codes: R09.02 - Hypoxemia SNOMED: 524278622 (2) COPD exacerbation ICD Codes: J44.1 - Chronic obstructive pulmonary disease with (acute) exacerbation SNOMED: 191101581 (3) Hypercapnic respiratory failure, chronic ICD Codes: J96.12 - Chronic respiratory failure with hypercapnia SNOMED: 582828158 (4) Hypoxemia ICD Codes: R09.02 - Hypoxemia SNOMED: 787853628 (5) Benzodiazepine dependence ICD Codes: F13.20 - Sedative, hypnotic or anxiolytic dependence, uncomplicated SNOMED: 331745359 (6) Hypoalbuminemia ICD Codes: E88.09 - Other disorders of plasma-protein metabolism, not elsewhere classified SNOMED: 932790874 Status: progressing Assessment/Plan clinically improving still confused and less lethargic continue suction copd exacerbation improving renal failure improving iv hydration per renal less lethargic discussed w renal and pulmonary Subjective ROS Limited/Unobtainable: Yes Allergies: Coded Allergies: No Known Allergies (Unverified , 05/22/18) Subjective lehtargic sob Objective Last 24 Hour Vital Signs Date Time Temp Pulse Resp B/P (MAP) Pulse Ox O2 Delivery O2 Flow Rate FiO2 06/03/18 16:00 Nasal Cannula 2.0 06/03/18 16:00 97.9 84 22 130/69 (89) 94 06/03/18 15:35 82 06/03/18 13:30 76 22 97 Nasal Cannula 2.0 28 06/03/18 13:17 79 23 94 Nasal Cannula 2.0 28 06/03/18 12:00 97.7 81 22 123/60 (81) 94 06/03/18 12:00 Nasal Cannula 2.0 06/03/18 11:51 79 06/03/18 08:00 Nasal Cannula 2.0 06/03/18 08:00 98.2 86 20 102/60 (74) 94 06/03/18 07:59 82 06/03/18 07:49 90 19 96 Nasal Cannula 2.0 28 06/03/18 07:41 82 25 94 Nasal Cannula 2.0 28 06/03/18 07:41 Nasal Cannula 2.0 28 06/03/18 07:40 94 Nasal Cannula 2.0 28 06/03/18 04:00 Nasal Cannula 2.0 06/03/18 04:00 74 06/03/18 04:00 97.0 73 20 144/70 (94) 98 06/03/18 01:59 73 19 98 Nasal Cannula 2.0 28 06/03/18 01:50 76 18 97 Nasal Cannula 2.0 28 06/03/18 00:00 76 06/03/18 00:00 Nasal Cannula 2.0 06/03/18 00:00 97.0 75 20 128/77 (94) 94 06/02/18 20:21 79 20 96 Nasal Cannula 2.0 28 06/02/18 20:10 80 20 Nasal Cannula 2.0 28 06/02/18 20:07 Nasal Cannula 2.0 28 06/02/18 20:07 95 Nasal Cannula 2.0 28 06/02/18 20:06 80 20 95 Nasal Cannula 2.0 28 06/02/18 20:00 78 06/02/18 20:00 Nasal Cannula 2.0 06/02/18 20:00 97.9 79 20 120/73 (89) 92 Intake and Output 06/02/18 06/03/18 19:00 07:00 Intake Total 1307.5 ml 1410 ml Output Total 1200 ml 800 ml Balance 107.5 ml 610 ml Intake Free Water 30 ml 90 ml IV Total 837.5 ml 660 ml Tube Feeding 440 ml 660 ml Output Urine Total 1200 ml 800 ml Laboratory Tests 06/03/18 15:00: C-Reactive Protein, Quantitative 0.8 Height (Feet): 5 Height (Inches): 5.00 Weight (Pounds): 172 Neck: supple Cardiovascular: normal rate Respiratory/Chest: lungs clear Abdomen: soft Margot Dutta MD Jun 03, 2018 18:39
--- NOTE | 2018-06-03 19:30 | NUR ---
HAND-OFF: Report given to RAUL Otero.
--- NOTE | 2018-06-03 19:31 | NUR ---
NURSE NOTES: Received report from Adalberto Ng RN. Pt in bed awake. No distress noted. Pt denies pain. IVF running at prescribed rate as well as NG tube feeding Glucerna 1.2 running at goal of 55 cc/hr. Bed in lowest position with side rails up x2 and call light in reach. Will continue to monitor.
[2018-06-03 20:00] VITALS: BP 117/65
[2018-06-03] MEDS: OLANZapine 10mg tab NG SCH (21:42)
--- NOTE | 2018-06-03 22:09 | General Progress Note ---
Assessment/Plan Problem List: (1) Schizoaffective disorder ICD Codes: F25.9 - Schizoaffective disorder, unspecified SNOMED: 43078414 (2) Acute metabolic encephalopathy ICD Codes: G93.41 - Metabolic encephalopathy SNOMED: 80754731, 057735379 Assessment/Plan cont prozac 20mg po qam cont zyprexa 15mg po qhs provided ro/st the pt has capacity to sign consent forms Subjective Neurologic/Psychiatric: Reports: anxiety, depressed Allergies: Coded Allergies: No Known Allergies (Unverified , 05/22/18) Subjective the pt is better Objective Last 24 Hour Vital Signs Date Time Temp Pulse Resp B/P (MAP) Pulse Ox O2 Delivery O2 Flow Rate FiO2 06/03/18 20:00 98.2 77 23 117/65 (82) 95 06/03/18 19:32 81 13 98 Nasal Cannula 2.0 28 06/03/18 19:19 Nasal Cannula 2.0 28 06/03/18 19:19 94 Nasal Cannula 2.0 28 06/03/18 19:19 74 22 94 Nasal Cannula 2.0 28 06/03/18 16:00 Nasal Cannula 2.0 06/03/18 16:00 97.9 84 22 130/69 (89) 94 06/03/18 15:35 82 06/03/18 13:30 76 22 97 Nasal Cannula 2.0 28 06/03/18 13:17 79 23 94 Nasal Cannula 2.0 28 06/03/18 12:00 97.7 81 22 123/60 (81) 94 06/03/18 12:00 Nasal Cannula 2.0 06/03/18 11:51 79 06/03/18 08:00 Nasal Cannula 2.0 06/03/18 08:00 98.2 86 20 102/60 (74) 94 06/03/18 07:59 82 06/03/18 07:49 90 19 96 Nasal Cannula 2.0 28 06/03/18 07:41 82 25 94 Nasal Cannula 2.0 28 06/03/18 07:41 Nasal Cannula 2.0 28 06/03/18 07:40 94 Nasal Cannula 2.0 28 06/03/18 04:00 Nasal Cannula 2.0 06/03/18 04:00 74 06/03/18 04:00 97.0 73 20 144/70 (94) 98 06/03/18 01:59 73 19 98 Nasal Cannula 2.0 28 06/03/18 01:50 76 18 97 Nasal Cannula 2.0 28 06/03/18 00:00 76 06/03/18 00:00 Nasal Cannula 2.0 06/03/18 00:00 97.0 75 20 128/77 (94) 94 Intake and Output 06/02/18 06/03/18 19:00 07:00 Intake Total 1307.5 ml 1410 ml Output Total 1200 ml 800 ml Balance 107.5 ml 610 ml Intake Free Water 30 ml 90 ml IV Total 837.5 ml 660 ml Tube Feeding 440 ml 660 ml Output Urine Total 1200 ml 800 ml Laboratory Tests 06/03/18 15:00: C-Reactive Protein, Quantitative 0.8 Height (Feet): 5 Height (Inches): 5.00 Weight (Pounds): 172 General Appearance: no apparent distress, alert Neurologic: oriented x 3, responsive Reagan Marshall MD Jun 03, 2018 22:09
[2018-06-04] VITALS: BP 119/78
[2018-06-04] MEDS: Albuterol/Ipratropium 3ml neb HHN SCH ×4 (01:15→19:42)
[2018-06-04 04:00] VITALS: BP 142/83
[2018-06-04 04:08] LABS: BASOPHILS % (AUTO) 0.4 % (0.0-2.0); EOSINOPHILS % (AUTO) 0.5 % (0.0-3.0); HEMATOCRIT 46.3 % (37.0-47.0); HEMOGLOBIN 15.9 G/DL (12.0-16.0); MEAN CORPUSCULAR VOLUME 92 FL (80-99); MONOCYTES % (AUTO) 4.1 % (1.0-10.0); PLATELET COUNT 190 K/UL (150-450); RED BLOOD COUNT 5.02 M/UL (4.20-5.40); RED CELL DISTRIBUTION WIDTH 11.3 % (11.6-14.8); WHITE BLOOD COUNT 14.8 K/UL (4.8-10.8)
[2018-06-04 04:30] LABS: ALANINE AMINOTRANSFERASE 102 U/L (12-78); ALBUMIN 2.5 G/DL (3.4-5.0); ALBUMIN/GLOBULIN RATIO 0.7 (1.0-2.7); ALKALINE PHOSPHATASE 86 U/L (46-116); ANION GAP 5 mmol/L (5-15); ASPARTATE AMINO TRANSFERASE 46 U/L (15-37); BILIRUBIN,TOTAL 0.3 MG/DL (0.2-1.0); BLOOD UREA NITROGEN 24 mg/dL (7-18); CALCIUM 8.9 MG/DL (8.5-10.1); CARBON DIOXIDE 30 MMOL/L (21-32); CHLORIDE 102 MMOL/L (98-107); CREATININE 0.6 MG/DL (0.55-1.30); PHOSPHORUS 2.8 MG/DL (2.5-4.9); POTASSIUM 4.3 MMOL/L (3.5-5.1); SODIUM 137 MMOL/L (136-145)
--- NOTE | 2018-06-04 07:10 | NUR ---
HAND-OFF: Report given to Adalberto Ng RN. Pt stable.
--- NOTE | 2018-06-04 07:24 | NUR ---
NURSE NOTES: Received report from RAUL Otero. Patient is resting in bed, in stable condition. No s/sx of SOB, breathing is even and unlabored. Patient is on 2 L NC SpO2 94%. Observed no presence of pain or discomfort at this time. Bed is in lowest position, brakes engaged. Call light is kept within easy reach. Will continue to monitor patient.
[2018-06-04 08:00] VITALS: BP 131/74
[2018-06-04] MEDS: Solu-MEDROL 40mg Inj IVP SCH (08:05)
[2018-06-04] MEDS: Heparin 5000 units/ml inj SUBQ SCH ×2 (08:07→20:45)
--- NOTE | 2018-06-04 09:19 | Infectious Diseases Prog Note ---
Assessment/Plan Assessment/Plan A; Chronic obstructive pulmonary disease exacerbation, leukocytosis; improving schizoaffective disorder, hypothyroidism, hyperlipidemia, hypertension. Positive blood culture with CoANS P: Observe off antibiotic Subjective ROS Limited/Unobtainable: No Constitutional: Reports: no symptoms Respiratory: Reports: dry cough Cardiovascular: Reports: no symptoms Gastrointestinal/Abdominal: Reports: no symptoms Genitourinary: Reports: no symptoms Allergies: Coded Allergies: No Known Allergies (Unverified , 05/22/18) Objective Vital Signs Last 24 Hour Vital Signs Date Time Temp Pulse Resp B/P (MAP) Pulse Ox O2 Delivery O2 Flow Rate FiO2 06/04/18 08:00 Nasal Cannula 2.0 06/04/18 07:51 Nasal Cannula 2.0 28 06/04/18 07:51 96 Nasal Cannula 2.0 28 06/04/18 07:28 79 18 98 Nasal Cannula 2.0 28 06/04/18 07:14 74 16 96 Nasal Cannula 2.0 28 06/04/18 04:00 69 06/04/18 04:00 Nasal Cannula 2.0 06/04/18 04:00 98.1 72 24 142/83 (102) 95 06/04/18 01:26 72 22 99 Nasal Cannula 2.0 28 06/04/18 01:15 69 23 96 Nasal Cannula 2.0 28 06/04/18 00:00 Nasal Cannula 2.0 06/04/18 00:00 97.8 70 22 119/78 (92) 96 06/04/18 00:00 69 06/03/18 20:00 74 06/03/18 20:00 Nasal Cannula 2.0 06/03/18 20:00 98.2 77 23 117/65 (82) 95 06/03/18 19:32 81 13 98 Nasal Cannula 2.0 28 06/03/18 19:19 Nasal Cannula 2.0 28 06/03/18 19:19 94 Nasal Cannula 2.0 28 06/03/18 19:19 74 22 94 Nasal Cannula 2.0 28 06/03/18 16:00 Nasal Cannula 2.0 06/03/18 16:00 97.9 84 22 130/69 (89) 94 06/03/18 15:35 82 06/03/18 13:30 76 22 97 Nasal Cannula 2.0 28 06/03/18 13:17 79 23 94 Nasal Cannula 2.0 28 06/03/18 12:00 97.7 81 22 123/60 (81) 94 06/03/18 12:00 Nasal Cannula 2.0 06/03/18 11:51 79 Height (Feet): 5 Height (Inches): 5.00 Weight (Pounds): 172 General Appearance: no acute distress HEENT: mucous membranes moist Respiratory/Chest: decreased breath sounds, other - oxygen by nasal cannula Cardiovascular: normal rate Abdomen: soft, non tender, other - NG tube feeding Extremities: other - trace edema Neurologic/Psychiatric: alert, responsive Laboratory Tests Test 06/03/18 15:00 06/04/18 03:15 C-Reactive Protein, Quantitative 0.8 mg/dL (0.00-0.90) White Blood Count 14.8 K/UL (4.8-10.8) H Red Blood Count 5.02 M/UL (4.20-5.40) Hemoglobin 15.9 G/DL (12.0-16.0) Hematocrit 46.3 % (37.0-47.0) Mean Corpuscular Volume 92 FL (80-99) Mean Corpuscular Hemoglobin 31.6 PG (27.0-31.0) H Mean Corpuscular Hemoglobin Concent 34.3 G/DL (32.0-36.0) Red Cell Distribution Width 11.3 % (11.6-14.8) L Platelet Count 190 K/UL (150-450) Mean Platelet Volume 8.8 FL (6.5-10.1) Neutrophils (%) (Auto) 73.0 % (45.0-75.0) Lymphocytes (%) (Auto) 22.0 % (20.0-45.0) Monocytes (%) (Auto) 4.1 % (1.0-10.0) Eosinophils (%) (Auto) 0.5 % (0.0-3.0) Basophils (%) (Auto) 0.4 % (0.0-2.0) Sodium Level 137 MMOL/L (136-145) Potassium Level 4.3 MMOL/L (3.5-5.1) Chloride Level 102 MMOL/L (98-107) Carbon Dioxide Level 30 MMOL/L (21-32) Anion Gap 5 mmol/L (5-15) Blood Urea Nitrogen 24 mg/dL (7-18) H Creatinine 0.6 MG/DL (0.55-1.30) Estimat Glomerular Filtration Rate > 60 mL/min (>60) Glucose Level 113 MG/DL (74-106) H Calcium Level 8.9 MG/DL (8.5-10.1) Phosphorus Level 2.8 MG/DL (2.5-4.9) Magnesium Level 1.8 MG/DL (1.8-2.4) Total Bilirubin 0.3 MG/DL (0.2-1.0) Aspartate Amino Transf (AST/SGOT) 46 U/L (15-37) H Alanine Aminotransferase (ALT/SGPT) 102 U/L (12-78) H Alkaline Phosphatase 86 U/L (46-116) Pro-B-Type Natriuretic Peptide 63 pg/mL (0-125) Total Protein 6.2 G/DL (6.4-8.2) L Albumin 2.5 G/DL (3.4-5.0) L Globulin 3.7 g/dL Albumin/Globulin Ratio 0.7 (1.0-2.7) L Current Medications Medications (Trade) Dose Ordered Sig/Salty Route PRN Reason Start Time Stop Time Status Last Admin Dose Admin Acetaminophen (Tylenol) 500 mg Q4H PRN NG Mild Pain/Temp > 100.5 05/27/18 13:09 06/22/18 13:08 05/30/18 10:32 Acetylcysteine (Mucomyst) 100 mg TIDRT N 05/25/18 13:00 06/24/18 12:59 06/04/18 07:51 Albuterol/ Ipratropium (Albuterol/ Ipratropium) 3 ml Q6HRT N 06/03/18 13:45 06/08/18 13:44 06/04/18 07:51 Dextrose 1,000 ml @ 50 mls/hr Q20H IV 06/02/18 17:56 07/02/18 17:55 06/04/18 09:08 Fluoxetine HCl (PROzac) 20 mg DAILY NG 05/28/18 09:00 06/22/18 11:44 06/04/18 08:05 Heparin Sodium (Porcine) (Heparin 5000 units/ml) 5,000 units EVERY 12 HOURS SUBQ 05/22/18 21:00 06/21/18 20:59 06/04/18 08:07 Hydralazine HCl (Apresoline) 10 mg Q4H PRN IV SBP > 170mmHg 05/29/18 16:45 06/28/18 16:44 Methylprednisolone Sodium Succinate (Solu-MEDROL) 30 mg DAILY IVP 06/01/18 09:00 06/23/18 08:59 06/04/18 08:05 Olanzapine (ZyPREXA) 15 mg BEDTIME NG 05/29/18 21:00 06/28/18 20:59 06/03/18 21:42 Migel Cohen MD Jun 04, 2018 09:18
--- NOTE | 2018-06-04 11:37 | General Progress Note ---
Assessment/Plan Assessment/Plan (1) S/p fall (2) COPD Exacerbation (3) OA Patient to be continued on Tylenol D/w Dr. Garcia and he concurred. Subjective Date patient seen: Jun 04, 2018 Time patient seen: 11:20 - am Constitutional: Reports: weakness Neurologic/Psychiatric: Reports: weakness Allergies: Coded Allergies: No Known Allergies (Unverified , 05/22/18) Subjective She is in bed NG tube still in place and denies pain at this time. Objective Last 24 Hour Vital Signs Date Time Temp Pulse Resp B/P (MAP) Pulse Ox O2 Delivery O2 Flow Rate FiO2 06/04/18 08:00 75 06/04/18 08:00 Nasal Cannula 2.0 06/04/18 08:00 97.9 80 19 131/74 (93) 95 06/04/18 07:51 Nasal Cannula 2.0 28 06/04/18 07:51 96 Nasal Cannula 2.0 28 06/04/18 07:28 79 18 98 Nasal Cannula 2.0 28 06/04/18 07:14 74 16 96 Nasal Cannula 2.0 28 06/04/18 04:00 69 06/04/18 04:00 Nasal Cannula 2.0 06/04/18 04:00 98.1 72 24 142/83 (102) 95 06/04/18 01:26 72 22 99 Nasal Cannula 2.0 28 06/04/18 01:15 69 23 96 Nasal Cannula 2.0 28 06/04/18 00:00 Nasal Cannula 2.0 06/04/18 00:00 97.8 70 22 119/78 (92) 96 06/04/18 00:00 69 06/03/18 20:00 74 06/03/18 20:00 Nasal Cannula 2.0 06/03/18 20:00 98.2 77 23 117/65 (82) 95 06/03/18 19:32 81 13 98 Nasal Cannula 2.0 28 06/03/18 19:19 Nasal Cannula 2.0 28 06/03/18 19:19 94 Nasal Cannula 2.0 28 06/03/18 19:19 74 22 94 Nasal Cannula 2.0 28 06/03/18 16:00 Nasal Cannula 2.0 06/03/18 16:00 97.9 84 22 130/69 (89) 94 06/03/18 15:35 82 06/03/18 13:30 76 22 97 Nasal Cannula 2.0 28 06/03/18 13:17 79 23 94 Nasal Cannula 2.0 28 06/03/18 12:00 97.7 81 22 123/60 (81) 94 06/03/18 12:00 Nasal Cannula 2.0 06/03/18 11:51 79 Intake and Output 06/03/18 06/04/18 19:00 07:00 Intake Total 660 ml 605 ml Output Total 900 ml Balance -240 ml 605 ml Tube Feeding 660 ml 605 ml Output Urine Total 900 ml # Voids 2 Laboratory Tests 06/03/18 15:00: C-Reactive Protein, Quantitative 0.8 06/04/18 03:15: White Blood Count 14.8H, Red Blood Count 5.02, Hemoglobin 15.9, Hematocrit 46.3 , Mean Corpuscular Volume 92, Mean Corpuscular Hemoglobin 31.6H, Mean Corpuscular Hemoglobin Concent 34.3, Red Cell Distribution Width 11.3L, Platelet Count 190, Mean Platelet Volume 8.8, Neutrophils (%) (Auto) 73.0, Lymphocytes (%) (Auto) 22.0, Monocytes (%) (Auto) 4.1, Eosinophils (%) (Auto) 0.5, Basophils (%) (Auto) 0.4, Sodium Level 137, Potassium Level 4.3, Chloride Level 102, Carbon Dioxide Level 30, Anion Gap 5, Blood Urea Nitrogen 24H, Creatinine 0.6, Estimat Glomerular Filtration Rate > 60, Glucose Level 113H, Calcium Level 8.9, Phosphorus Level 2.8, Magnesium Level 1.8, Total Bilirubin 0.3, Aspartate Amino Transf (AST/SGOT) 46H, Alanine Aminotransferase (ALT/SGPT) 102H, Alkaline Phosphatase 86, Pro-B-Type Natriuretic Peptide 63, Total Protein 6.2L, Albumin 2.5L, Globulin 3.7, Albumin/Globulin Ratio 0.7L Height (Feet): 5 Height (Inches): 5.00 Weight (Pounds): 172 Objective Neck: non-tender, supple Cardiovascular: normal rate, regular rhythm Respiratory/Chest: decreased breath sounds Abdomen: non tender, soft Extremities: non-tender Edema: trace edema Skin: warm/dry Anjum Dumont Jun 04, 2018 11:37
[2018-06-04 12:00] VITALS: BP 128/74
--- NOTE | 2018-06-04 12:48 | Nephrology Progress Note ---
Assessment/Plan Problem List: (1) Proteinuria (2) Hypoalbuminemia (3) COPD exacerbation (4) Schizoaffective disorder (5) Azotemia Assessment rissing BUN and Hgb resolved admitted with exacerbation COPD and Hypoxia High WBCs : UTI , Pneumonia Proteinuria and HypoAlbuminemia Plan down on D5w rate Pulmonary support BIPAP as needed Antibiotics 24 h urine proteins CAN NOT BE COLLECTED UNLESS FOLEY_ WILL DEFER 2D echo Left ventricular ejection fraction grossly estimated to be 65 %. optimize cardiac status Subjective ROS Limited/Unobtainable: No Constitutional: Reports: malaise Objective Objective Last 24 Hour Vital Signs Date Time Temp Pulse Resp B/P (MAP) Pulse Ox O2 Delivery O2 Flow Rate FiO2 06/04/18 08:00 75 06/04/18 08:00 Nasal Cannula 2.0 06/04/18 08:00 97.9 80 19 131/74 (93) 95 06/04/18 07:51 Nasal Cannula 2.0 28 06/04/18 07:51 96 Nasal Cannula 2.0 28 06/04/18 07:28 79 18 98 Nasal Cannula 2.0 28 06/04/18 07:14 74 16 96 Nasal Cannula 2.0 28 06/04/18 04:00 69 06/04/18 04:00 Nasal Cannula 2.0 06/04/18 04:00 98.1 72 24 142/83 (102) 95 06/04/18 01:26 72 22 99 Nasal Cannula 2.0 28 06/04/18 01:15 69 23 96 Nasal Cannula 2.0 28 06/04/18 00:00 Nasal Cannula 2.0 06/04/18 00:00 97.8 70 22 119/78 (92) 96 06/04/18 00:00 69 06/03/18 20:00 74 06/03/18 20:00 Nasal Cannula 2.0 06/03/18 20:00 98.2 77 23 117/65 (82) 95 06/03/18 19:32 81 13 98 Nasal Cannula 2.0 28 06/03/18 19:19 Nasal Cannula 2.0 28 06/03/18 19:19 94 Nasal Cannula 2.0 28 06/03/18 19:19 74 22 94 Nasal Cannula 2.0 28 06/03/18 16:00 Nasal Cannula 2.0 06/03/18 16:00 97.9 84 22 130/69 (89) 94 06/03/18 15:35 82 06/03/18 13:30 76 22 97 Nasal Cannula 2.0 28 06/03/18 13:17 79 23 94 Nasal Cannula 2.0 28 Intake and Output 06/03/18 06/04/18 18:59 06:59 Intake Total 660 ml 660 ml Output Total 900 ml Balance -240 ml 660 ml Tube Feeding 660 ml 660 ml Output Urine Total 900 ml # Voids 2 Laboratory Tests 06/03/18 15:00: C-Reactive Protein, Quantitative 0.8 06/04/18 03:15: White Blood Count 14.8H, Red Blood Count 5.02, Hemoglobin 15.9, Hematocrit 46.3 , Mean Corpuscular Volume 92, Mean Corpuscular Hemoglobin 31.6H, Mean Corpuscular Hemoglobin Concent 34.3, Red Cell Distribution Width 11.3L, Platelet Count 190, Mean Platelet Volume 8.8, Neutrophils (%) (Auto) 73.0, Lymphocytes (%) (Auto) 22.0, Monocytes (%) (Auto) 4.1, Eosinophils (%) (Auto) 0.5, Basophils (%) (Auto) 0.4, Sodium Level 137, Potassium Level 4.3, Chloride Level 102, Carbon Dioxide Level 30, Anion Gap 5, Blood Urea Nitrogen 24H, Creatinine 0.6, Estimat Glomerular Filtration Rate > 60, Glucose Level 113H, Calcium Level 8.9, Phosphorus Level 2.8, Magnesium Level 1.8, Total Bilirubin 0.3, Aspartate Amino Transf (AST/SGOT) 46H, Alanine Aminotransferase (ALT/SGPT) 102H, Alkaline Phosphatase 86, Pro-B-Type Natriuretic Peptide 63, Total Protein 6.2L, Albumin 2.5L, Globulin 3.7, Albumin/Globulin Ratio 0.7L Height (Feet): 5 Height (Inches): 5.00 Weight (Pounds): 172 General Appearance: no apparent distress Cardiovascular: normal rate Respiratory/Chest: decreased breath sounds Abdomen: soft Objective no change Seamus Morfin MD Jun 04, 2018 12:48
--- NOTE | 2018-06-04 13:21 | General Progress Note ---
Assessment/Plan Problem List: (1) Hypoxia ICD Codes: R09.02 - Hypoxemia SNOMED: 027960858 (2) COPD exacerbation ICD Codes: J44.1 - Chronic obstructive pulmonary disease with (acute) exacerbation SNOMED: 534116175 (3) Hypercapnic respiratory failure, chronic ICD Codes: J96.12 - Chronic respiratory failure with hypercapnia SNOMED: 563439436 (4) Hypoxemia ICD Codes: R09.02 - Hypoxemia SNOMED: 043352676 (5) Benzodiazepine dependence ICD Codes: F13.20 - Sedative, hypnotic or anxiolytic dependence, uncomplicated SNOMED: 287154488 (6) Hypoalbuminemia ICD Codes: E88.09 - Other disorders of plasma-protein metabolism, not elsewhere classified SNOMED: 317640372 Status: progressing Assessment/Plan sepsis copd exacerbation improving renal failure improving less lethargic hypercapnic respiratory failure no wheezing Subjective ROS Limited/Unobtainable: Yes Allergies: Coded Allergies: No Known Allergies (Unverified , 05/22/18) Subjective lehtargic sob Objective Last 24 Hour Vital Signs Date Time Temp Pulse Resp B/P (MAP) Pulse Ox O2 Delivery O2 Flow Rate FiO2 06/04/18 12:57 76 16 97 Nasal Cannula 2.0 28 06/04/18 12:52 71 12 94 Nasal Cannula 2.0 28 06/04/18 12:00 98.6 76 20 128/74 (92) 93 06/04/18 12:00 Nasal Cannula 2.0 06/04/18 12:00 79 06/04/18 08:00 75 06/04/18 08:00 Nasal Cannula 2.0 06/04/18 08:00 97.9 80 19 131/74 (93) 95 06/04/18 07:51 Nasal Cannula 2.0 28 06/04/18 07:51 96 Nasal Cannula 2.0 28 06/04/18 07:28 79 18 98 Nasal Cannula 2.0 28 06/04/18 07:14 74 16 96 Nasal Cannula 2.0 28 06/04/18 04:00 69 06/04/18 04:00 Nasal Cannula 2.0 06/04/18 04:00 98.1 72 24 142/83 (102) 95 06/04/18 01:26 72 22 99 Nasal Cannula 2.0 28 06/04/18 01:15 69 23 96 Nasal Cannula 2.0 28 06/04/18 00:00 Nasal Cannula 2.0 06/04/18 00:00 97.8 70 22 119/78 (92) 96 06/04/18 00:00 69 06/03/18 20:00 74 06/03/18 20:00 Nasal Cannula 2.0 06/03/18 20:00 98.2 77 23 117/65 (82) 95 06/03/18 19:32 81 13 98 Nasal Cannula 2.0 28 06/03/18 19:19 Nasal Cannula 2.0 28 06/03/18 19:19 94 Nasal Cannula 2.0 28 06/03/18 19:19 74 22 94 Nasal Cannula 2.0 28 06/03/18 16:00 Nasal Cannula 2.0 06/03/18 16:00 97.9 84 22 130/69 (89) 94 06/03/18 15:35 82 06/03/18 13:30 76 22 97 Nasal Cannula 2.0 28 Intake and Output 06/03/18 06/04/18 18:59 06:59 Intake Total 660 ml 660 ml Output Total 900 ml Balance -240 ml 660 ml Tube Feeding 660 ml 660 ml Output Urine Total 900 ml # Voids 2 Laboratory Tests 06/03/18 15:00: C-Reactive Protein, Quantitative 0.8 06/04/18 03:15: White Blood Count 14.8H, Red Blood Count 5.02, Hemoglobin 15.9, Hematocrit 46.3 , Mean Corpuscular Volume 92, Mean Corpuscular Hemoglobin 31.6H, Mean Corpuscular Hemoglobin Concent 34.3, Red Cell Distribution Width 11.3L, Platelet Count 190, Mean Platelet Volume 8.8, Neutrophils (%) (Auto) 73.0, Lymphocytes (%) (Auto) 22.0, Monocytes (%) (Auto) 4.1, Eosinophils (%) (Auto) 0.5, Basophils (%) (Auto) 0.4, Sodium Level 137, Potassium Level 4.3, Chloride Level 102, Carbon Dioxide Level 30, Anion Gap 5, Blood Urea Nitrogen 24H, Creatinine 0.6, Estimat Glomerular Filtration Rate > 60, Glucose Level 113H, Calcium Level 8.9, Phosphorus Level 2.8, Magnesium Level 1.8, Total Bilirubin 0.3, Aspartate Amino Transf (AST/SGOT) 46H, Alanine Aminotransferase (ALT/SGPT) 102H, Alkaline Phosphatase 86, Pro-B-Type Natriuretic Peptide 63, Total Protein 6.2L, Albumin 2.5L, Globulin 3.7, Albumin/Globulin Ratio 0.7L Height (Feet): 5 Height (Inches): 5.00 Weight (Pounds): 172 Neck: supple Cardiovascular: normal rate Respiratory/Chest: lungs clear Margot Dutta MD Jun 04, 2018 13:21
--- NOTE | 2018-06-04 14:09 | NUR ---
Physical Therapy Note Physical therapy jose d completed, treatment initiated. Patient was able to stand and take a few small steps with the FWW. Patient needs PT services to increase her muscle strength and balance to improve her functional mobility and gait. Addendum: 06/04/18 at 1410 by WILLEM DIANE PT Amended: Links added.
--- NOTE | 2018-06-04 14:59 | Pulmonology Progress Note ---
Assessment/Plan Assessment/Plan Pulmonary Progress Note Problems: (1) COPD exacerbation (2) Hypercapnic respiratory failure, chronic (3) Hypoxia (4) Benzodiazepine dependence (5) Hypercarbia (6) Schizoaffective disorder Assessment/Plan ASSESSMENT: The patient is a 67-year-old female smoker with history of chronic obstructive pulmonary disease, assisted living resident, hypertension, hyperlipidemia, hypothyroidism, presenting after a fall, respiratory distress, likely exacerbation of chronic obstructive pulmonary disease and urinary tract infection. Stable over night, no new complaints. PROBLEM LIST: 1. Acute on chronic hypercapnic respiratory failure. 2. Chronic obstructive pulmonary disease with acute exacerbation. 3. Urinary tract infection ( alpha hemolytic strep) 4. CoNS in blood likely contaminant 5. Leukocytosis secondary to above and steroids 6. Questionable fall. 7. History of psychiatric disorder. 8. Hypertension, hyperlipidemia, hypothyroidism. 9. Mild elevation of D-dimer. 10. Erythrocytosis & likely hemoconcentration 11. Elevated BUN TREATMENT PLAN: 1. TTE with BUBBLE 2. Optimize pulmonary hygiene/mobilize as tolerated. 3. BiPAP 12/5 qHS and PRN 4. Titrate FiO2 to keep saturations greater than 90% --> attempt to wean off HFO2 today 5. RTC and PRN DuoNeb + MUCOMYST + CPT 6. Decrease SM to 20 IV qDaily (D9) 7. Abx per ID 8. NPO while on BiPAP, TF's while off, continue [employer] therapy, not ready for PO yet 9. Monitor volumes and renal function, IVF per renal 10. F/U FOBT 11. DVT prophylaxis with heparin subcutaneous. 12. F/U neuro & psych recs, monitor MS, minimize sedative 13. The patient should have outpatient workup including pulmonary function tests Subjective Allergies: Coded Allergies: No Known Allergies (Unverified , 05/22/18) Subjective AFVSS BiPAP ON now on VM - taken off by me ---> RA sat after 5 min 91% Lethargic but more arousable CT CAP noted - chest cuts reviewed by me with R > L basilar atx vs resolving infiltrates some bxtsis No cough + SOB no wheezing no CP no FC Objective Vital Signs Noted General Appearance: cachetic, other - lethargic HEENT: normocephalic, atraumatic, anicteric, mucous membranes moist Respiratory/Chest: chest wall non-tender, lungs clear, normal breath sounds, no respiratory distress, no accessory muscle use Cardiovascular: normal peripheral pulses, normal rate, regular rhythm Abdomen: normal bowel sounds, soft, non tender, no organomegaly, non distended , no mass Extremities: no cyanosis, no clubbing, no edema Laboratory Tests 06/01/18 04:25: White Blood Count 14.0H, Red Blood Count 5.61H, Hemoglobin 17.4H, Hematocrit 53.4H, Mean Corpuscular Volume 95, Mean Corpuscular Hemoglobin 31.1H, Mean Corpuscular Hemoglobin Concent 32.6, Red Cell Distribution Width 11.8, Platelet Count 196, Mean Platelet Volume 7.0, Neutrophils (%) (Auto) 68.2, Lymphocytes (% ) (Auto) 23.3, Monocytes (%) (Auto) 7.5, Eosinophils (%) (Auto) 0.6, Basophils ( %) (Auto) 0.4 06/01/18 04:30: Stool Occult Blood [Pending] Current Medications Medications (Trade) Dose Ordered Sig/Salty Route PRN Reason Start Time Stop Time Status Last Admin Dose Admin Acetaminophen (Tylenol) 500 mg Q4H PRN NG Mild Pain/Temp > 100.5 05/27/18 13:09 06/22/18 13:08 05/30/18 10:32 Acetylcysteine (Mucomyst) 100 mg TIDRT N 05/25/18 13:00 06/24/18 12:59 06/01/18 07:53 Albuterol/ Ipratropium (Albuterol/ Ipratropium) 3 ml Q4H PRN N Shortness of Breath 05/28/18 22:00 06/02/18 21:59 05/29/18 08:26 Albuterol/ Ipratropium (Albuterol/ Ipratropium) 3 ml Q6HRT N 05/29/18 13:00 06/03/18 12:59 06/01/18 07:53 Azithromycin (Zithromax) 250 mg DAILY NG 05/31/18 09:00 06/07/18 08:59 06/01/18 08:50 Barium Sulfate (Readi-Cat 2) 450 ml NOW PRN ORAL Radiology Procedure 05/31/18 10:00 06/02/18 09:57 Dextrose 1,000 ml @ 100 mls/hr Q10H IV 05/31/18 10:15 06/30/18 10:14 06/01/18 06:04 Fluoxetine HCl (PROzac) 20 mg DAILY NG 05/28/18 09:00 06/22/18 11:44 06/01/18 08:50 Heparin Sodium (Porcine) (Heparin 5000 units/ml) 5,000 units EVERY 12 HOURS SUBQ 05/22/18 21:00 06/21/18 20:59 06/01/18 08:40 Hydralazine HCl (Apresoline) 10 mg Q4H PRN IV SBP > 170mmHg 05/29/18 16:45 06/28/18 16:44 Meropenem 1 gm/ Sodium Chloride 55 ml @ 110 mls/hr Q8HR IVPB 05/29/18 14:00 06/03/18 13:59 06/01/18 06:04 Methylprednisolone Sodium Succinate (Solu-MEDROL) 30 mg DAILY IVP 06/01/18 09:00 06/23/18 08:59 06/01/18 08:42 Olanzapine (ZyPREXA) 15 mg BEDTIME NG 05/29/18 21:00 06/28/18 20:59 05/31/18 20:46 Subjective ROS Limited/Unobtainable: No Allergies: Coded Allergies: No Known Allergies (Unverified , 05/22/18) Objective Last 24 Hour Vital Signs Date Time Temp Pulse Resp B/P (MAP) Pulse Ox O2 Delivery O2 Flow Rate FiO2 06/04/18 12:57 76 16 97 Nasal Cannula 2.0 28 06/04/18 12:52 71 12 94 Nasal Cannula 2.0 28 06/04/18 12:00 98.6 76 20 128/74 (92) 93 06/04/18 12:00 Nasal Cannula 2.0 06/04/18 12:00 79 06/04/18 08:00 75 06/04/18 08:00 Nasal Cannula 2.0 06/04/18 08:00 97.9 80 19 131/74 (93) 95 06/04/18 07:51 Nasal Cannula 2.0 28 06/04/18 07:51 96 Nasal Cannula 2.0 28 06/04/18 07:28 79 18 98 Nasal Cannula 2.0 28 06/04/18 07:14 74 16 96 Nasal Cannula 2.0 28 06/04/18 04:00 69 06/04/18 04:00 Nasal Cannula 2.0 06/04/18 04:00 98.1 72 24 142/83 (102) 95 06/04/18 01:26 72 22 99 Nasal Cannula 2.0 28 06/04/18 01:15 69 23 96 Nasal Cannula 2.0 28 06/04/18 00:00 Nasal Cannula 2.0 06/04/18 00:00 97.8 70 22 119/78 (92) 96 06/04/18 00:00 69 06/03/18 20:00 74 06/03/18 20:00 Nasal Cannula 2.0 06/03/18 20:00 98.2 77 23 117/65 (82) 95 06/03/18 19:32 81 13 98 Nasal Cannula 2.0 28 06/03/18 19:19 Nasal Cannula 2.0 28 06/03/18 19:19 94 Nasal Cannula 2.0 28 06/03/18 19:19 74 22 94 Nasal Cannula 2.0 28 06/03/18 16:00 Nasal Cannula 2.0 06/03/18 16:00 97.9 84 22 130/69 (89) 94 06/03/18 15:35 82 Intake and Output 06/03/18 06/04/18 19:00 07:00 Intake Total 660 ml 660 ml Output Total 900 ml Balance -240 ml 660 ml Tube Feeding 660 ml 660 ml Output Urine Total 900 ml # Voids 2 Laboratory Tests 06/03/18 15:00: C-Reactive Protein, Quantitative 0.8 06/04/18 03:15: White Blood Count 14.8H, Red Blood Count 5.02, Hemoglobin 15.9, Hematocrit 46.3 , Mean Corpuscular Volume 92, Mean Corpuscular Hemoglobin 31.6H, Mean Corpuscular Hemoglobin Concent 34.3, Red Cell Distribution Width 11.3L, Platelet Count 190, Mean Platelet Volume 8.8, Neutrophils (%) (Auto) 73.0, Lymphocytes (%) (Auto) 22.0, Monocytes (%) (Auto) 4.1, Eosinophils (%) (Auto) 0.5, Basophils (%) (Auto) 0.4, Sodium Level 137, Potassium Level 4.3, Chloride Level 102, Carbon Dioxide Level 30, Anion Gap 5, Blood Urea Nitrogen 24H, Creatinine 0.6, Estimat Glomerular Filtration Rate > 60, Glucose Level 113H, Calcium Level 8.9, Phosphorus Level 2.8, Magnesium Level 1.8, Total Bilirubin 0.3, Aspartate Amino Transf (AST/SGOT) 46H, Alanine Aminotransferase (ALT/SGPT) 102H, Alkaline Phosphatase 86, Pro-B-Type Natriuretic Peptide 63, Total Protein 6.2L, Albumin 2.5L, Globulin 3.7, Albumin/Globulin Ratio 0.7L Current Medications Medications (Trade) Dose Ordered Sig/Salty Route PRN Reason Start Time Stop Time Status Last Admin Dose Admin Acetaminophen (Tylenol) 500 mg Q4H PRN NG Mild Pain/Temp > 100.5 05/27/18 13:09 06/22/18 13:08 05/30/18 10:32 Acetylcysteine (Mucomyst) 100 mg TIDRT N 05/25/18 13:00 06/24/18 12:59 06/04/18 12:57 Albuterol/ Ipratropium (Albuterol/ Ipratropium) 3 ml Q6HRT N 06/03/18 13:45 06/08/18 13:44 06/04/18 12:57 Dextrose 1,000 ml @ 50 mls/hr Q20H IV 06/02/18 17:56 07/02/18 17:55 06/04/18 09:08 Fluoxetine HCl (PROzac) 20 mg DAILY NG 05/28/18 09:00 06/22/18 11:44 06/04/18 08:05 Heparin Sodium (Porcine) (Heparin 5000 units/ml) 5,000 units EVERY 12 HOURS SUBQ 05/22/18 21:00 06/21/18 20:59 06/04/18 08:07 Hydralazine HCl (Apresoline) 10 mg Q4H PRN IV SBP > 170mmHg 05/29/18 16:45 06/28/18 16:44 Methylprednisolone Sodium Succinate (Solu-MEDROL) 30 mg DAILY IVP 06/01/18 09:00 06/23/18 08:59 06/04/18 08:05 Olanzapine (ZyPREXA) 15 mg BEDTIME NG 05/29/18 21:00 06/28/18 20:59 06/03/18 21:42 Mele Mccullough MD Jun 04, 2018 14:59
--- NOTE | 2018-06-04 15:42 | Neurology Progress Note ---
Interim History Interim History ROS Limited/Unobtainable: No Interim History Ms. Whitfield feels very well. She is awake, alert and bright. She feels that her mind is clear. She feels stronger. She took a few steps with the PT today. She is on 2 L of nasal O2. She is eager to eat and drink. She is not delusional. She denies any new neurologic symptoms. Her memory is better. She is much more cooperative. Review of Systems Neuro Review of Systems Benign. Objective Physical Exam Last Vital Signs Date Time Temp Pulse Resp B/P (MAP) Pulse Ox O2 Delivery O2 Flow Rate FiO2 06/04/18 12:57 76 16 97 Nasal Cannula 2.0 28 06/04/18 12:00 98.6 128/74 (92) Laboratory Tests Test 06/04/18 03:15 White Blood Count 14.8 K/UL (4.8-10.8) H Red Blood Count 5.02 M/UL (4.20-5.40) Hemoglobin 15.9 G/DL (12.0-16.0) Hematocrit 46.3 % (37.0-47.0) Mean Corpuscular Volume 92 FL (80-99) Mean Corpuscular Hemoglobin 31.6 PG (27.0-31.0) H Mean Corpuscular Hemoglobin Concent 34.3 G/DL (32.0-36.0) Red Cell Distribution Width 11.3 % (11.6-14.8) L Platelet Count 190 K/UL (150-450) Mean Platelet Volume 8.8 FL (6.5-10.1) Neutrophils (%) (Auto) 73.0 % (45.0-75.0) Lymphocytes (%) (Auto) 22.0 % (20.0-45.0) Monocytes (%) (Auto) 4.1 % (1.0-10.0) Eosinophils (%) (Auto) 0.5 % (0.0-3.0) Basophils (%) (Auto) 0.4 % (0.0-2.0) Sodium Level 137 MMOL/L (136-145) Potassium Level 4.3 MMOL/L (3.5-5.1) Chloride Level 102 MMOL/L (98-107) Carbon Dioxide Level 30 MMOL/L (21-32) Anion Gap 5 mmol/L (5-15) Blood Urea Nitrogen 24 mg/dL (7-18) H Creatinine 0.6 MG/DL (0.55-1.30) Estimat Glomerular Filtration Rate > 60 mL/min (>60) Glucose Level 113 MG/DL (74-106) H Calcium Level 8.9 MG/DL (8.5-10.1) Phosphorus Level 2.8 MG/DL (2.5-4.9) Magnesium Level 1.8 MG/DL (1.8-2.4) Total Bilirubin 0.3 MG/DL (0.2-1.0) Aspartate Amino Transf (AST/SGOT) 46 U/L (15-37) H Alanine Aminotransferase (ALT/SGPT) 102 U/L (12-78) H Alkaline Phosphatase 86 U/L (46-116) Pro-B-Type Natriuretic Peptide 63 pg/mL (0-125) Total Protein 6.2 G/DL (6.4-8.2) L Albumin 2.5 G/DL (3.4-5.0) L Globulin 3.7 g/dL Albumin/Globulin Ratio 0.7 (1.0-2.7) L Neurologic Exam Objective PHYSICAL EXAMINATION: GENERAL: She is a well-developed, well-nourished, pleasant lady, lying in bed. HEAD: Normocephalic and atraumatic. EENT: Examination benign NECK: No neck rigidity was observed. NEUROLOGICAL EXAMINATION: MENTAL STATUS EXAMINATION: She was awake and alert. She was oriented to self[place] [facility] [place] She did not know the date. She was able to recall 3/3 words immediately and after 1 minute and after 3 minutes. She was able to remember president [place] through [employer]. Her mathematical skills were impaired. Her visuospatial function was also impaired. SPEECH: She had a no dysarthria. LANGUAGE: She had a mild anomia for low-frequency words. CRANIAL NERVE EXAMINATION: II: The visual beltran were intact on confrontation testing. III, IV & : The external ocular movements were full and the pupils 3 mm in diameter, equal, round, regular, and reactive to light. V: She had normal facial sensations, and the temporales, masseters, and pterygoids functioned normally. VII: She had normal facial expressions and no facial asymmetry. VIII: She was able to hear well bilaterally and had no nystagmus. IX: The palate moved symmetrically on phonation. X: She had no hoarseness of voice. XI: The sternocleidomastoids and trapezii functioned normally. XII: The tongue was in the midline without any fasciculations or atrophy. MOTOR SYSTEM: The tone was normal in all four extremities. Examination of muscle mass revealed no focal wasting. Examination of power revealed G 5/5 power in the upper extremities. She also had G 5/5 in the lower extremities except for G 4+/5 in the iliopsoas. SENSORY EXAMINATION: She had intact sensations to light touch. COORDINATION: She performed well on qfvxow-dy-vaev testing. REFLEXES: 1+ and bilaterally symmetrical at the biceps, triceps, brachioradialis, and knees, 0 at both ankles. The plantar responses were flexor bilaterally. STANCE: Could not be tested. GAIT: Could not be tested. Impression/Recommendations Diagnostic Impression 1. Ms Leigh Ann Whitfield is a 67-year-old, right-handed, lady, who does have a past history of hypertension, dyslipidemia, chronic obstructive pulmonary disease, hypothyroidism, schizoaffective disorder, and recent falls, who was hospitalized on 05/22/2018 for an altered mental state and a fall at her board and half-way. She was found to be hypoxic, hypercapnic, and had a significant leukocytosis. Since she has been in the hospital, she has improved. 2. She feels very well. She is awake, alert and bright. She feels that her mind is clear. She feels stronger. She walked with the PT today. She is on 2 L of nasal O2. She is eager to eat and drink. She is not delusional. She denies any new neurologic symptoms. Her memory is better. She is much more cooperative. 3. On neurological examination, at this time, she is disoriented to the exact date. Has problems with visuospatial function and higher cognitive function. Has a mild anomia, has proximal lower extremities weakness, an has globally diminished deep tendon reflexes. 4. Laboratory data on my initial evaluation revealed that she had a significant leukocytosis with a WBC count of 19,700. Her chemistry panel revealed that her uric acid level was elevated at 8.2, magnesium was low at 1.6. ProBNP that was elevated at 186, albumin was low at 2.5. Her B12 level was normal at 924. Her folate level was normal at 40.6. Her TSH was normal at 1.92 with a free T4 of 1.13. The Hemoglobin A1c was at 6%. Latest arterial blood gas revealed a pH at 7.37, pCO2 at 62, and pO2 at 56. Her urinalysis revealed 1+ leukocyte esterase, 0-2 red blood cells, and 2-4 white blood cells per high-power field. 5. Further laboratory tests have revealed a minimally elevated ammonia at 34. 6. The last ABG done on 06/02/18 revealed a pCO2 at 44 but a low pO2 at 62. 7. Her leukocytosis has improved with a WBC count of 15,500 on 06/02/18. Her HB is still elevated at 16.3G 8. The CT scan of the brain without contrast revealed atrophy and some deep white matter changes, but no acute pathology. 9. The EGG done on 05/24/18 was normal in the awake and drowsy states. 10. The patient's history, neurological examination, laboratory data, and imaging studies are most compatible with a toxic metabolic encephalopathy related to the hypoxia, hypercapnia, and an infectious process. Her encephalopathy continues to improve. Recommendations 1. Continue present management. 2. Swallowing study by speech pathologist. 3. Aggressive treatment of the patient's respiratory failure as per Dr. Membreno. 4. Aggressive treatment of the patient's infectious process as per Dr. Cohen. 5. Correction of fluid and electrolyte status. 6. Observe. Fransico Bolton M.D., M.S.P.H. Fransico Bolton MD Jun 04, 2018 15:42
[2018-06-04] MEDS ORDERED: NS 275ml ONE (15:59)
[2018-06-04] MEDS ORDERED: Tubing IV Secondary IV ONE ×2 (15:59→17:23)
[2018-06-04 16:00] VITALS: BP 127/74
--- NOTE | 2018-06-04 16:43 | NUR ---
NURSE NOTES: Patient is noted with elevated AST 46 and ALT 102, trended upward from last lab draw of 06/01/18 AST 34 and ALT 63), patient also c/o abdominal pain. Contacted and left message for Dr. Dutta. Awaiting reply. Will continue to monitor patient at this time.
--- NOTE | 2018-06-04 19:12 | NUR ---
HAND-OFF: Report given to RAUL Diop.
--- NOTE | 2018-06-04 19:30 | NUR ---
NURSE NOTES: Received Pt is resting on the bed and awake and alert. No sigh of acute distress noted. On O2 2L via nasal cannula and SaO2 95% noted. Denied pain at this time. On NGT feeding with Glucerna 1.2 @ 55cc/hr. No residual noted. Changed position. Placed fall precaution. Will continue to care plan.
[2018-06-04 20:00] VITALS: BP 133/80
--- NOTE | 2018-06-04 20:24 | General Progress Note ---
Assessment/Plan Problem List: (1) Schizoaffective disorder ICD Codes: F25.9 - Schizoaffective disorder, unspecified SNOMED: 30425138 (2) Acute metabolic encephalopathy ICD Codes: G93.41 - Metabolic encephalopathy SNOMED: 17288226, 746154686 Assessment/Plan cont prozac 20mg po qam cont zyprexa 15mg po qhs provided ro/st the pt lacks capacity to sign consent forms Subjective Neurologic/Psychiatric: Reports: anxiety, depressed Allergies: Coded Allergies: No Known Allergies (Unverified , 05/22/18) Subjective the pt is doing much better was able to answer the questions Objective Last 24 Hour Vital Signs Date Time Temp Pulse Resp B/P (MAP) Pulse Ox O2 Delivery O2 Flow Rate FiO2 06/04/18 20:00 Nasal Cannula 2.0 06/04/18 19:45 94 Nasal Cannula 2.0 28 06/04/18 19:45 Nasal Cannula 2.0 28 06/04/18 19:42 70 17 94 Nasal Cannula 2.0 28 06/04/18 16:00 Nasal Cannula 2.0 06/04/18 16:00 88 06/04/18 16:00 97.8 83 21 127/74 (91) 94 06/04/18 12:57 76 16 97 Nasal Cannula 2.0 28 06/04/18 12:52 71 12 94 Nasal Cannula 2.0 28 06/04/18 12:00 98.6 76 20 128/74 (92) 93 06/04/18 12:00 Nasal Cannula 2.0 06/04/18 12:00 79 06/04/18 08:00 75 06/04/18 08:00 Nasal Cannula 2.0 06/04/18 08:00 97.9 80 19 131/74 (93) 95 06/04/18 07:51 Nasal Cannula 2.0 28 06/04/18 07:51 96 Nasal Cannula 2.0 28 06/04/18 07:28 79 18 98 Nasal Cannula 2.0 28 06/04/18 07:14 74 16 96 Nasal Cannula 2.0 28 06/04/18 04:00 69 06/04/18 04:00 Nasal Cannula 2.0 06/04/18 04:00 98.1 72 24 142/83 (102) 95 06/04/18 01:26 72 22 99 Nasal Cannula 2.0 28 06/04/18 01:15 69 23 96 Nasal Cannula 2.0 28 06/04/18 00:00 Nasal Cannula 2.0 06/04/18 00:00 97.8 70 22 119/78 (92) 96 06/04/18 00:00 69 Intake and Output 06/03/18 06/04/18 19:00 07:00 Intake Total 660 ml 660 ml Output Total 900 ml Balance -240 ml 660 ml Tube Feeding 660 ml 660 ml Output Urine Total 900 ml # Voids 2 Laboratory Tests 06/04/18 03:15: White Blood Count 14.8H, Red Blood Count 5.02, Hemoglobin 15.9, Hematocrit 46.3 , Mean Corpuscular Volume 92, Mean Corpuscular Hemoglobin 31.6H, Mean Corpuscular Hemoglobin Concent 34.3, Red Cell Distribution Width 11.3L, Platelet Count 190, Mean Platelet Volume 8.8, Neutrophils (%) (Auto) 73.0, Lymphocytes (%) (Auto) 22.0, Monocytes (%) (Auto) 4.1, Eosinophils (%) (Auto) 0.5, Basophils (%) (Auto) 0.4, Sodium Level 137, Potassium Level 4.3, Chloride Level 102, Carbon Dioxide Level 30, Anion Gap 5, Blood Urea Nitrogen 24H, Creatinine 0.6, Estimat Glomerular Filtration Rate > 60, Glucose Level 113H, Calcium Level 8.9, Phosphorus Level 2.8, Magnesium Level 1.8, Total Bilirubin 0.3, Aspartate Amino Transf (AST/SGOT) 46H, Alanine Aminotransferase (ALT/SGPT) 102H, Alkaline Phosphatase 86, Pro-B-Type Natriuretic Peptide 63, Total Protein 6.2L, Albumin 2.5L, Globulin 3.7, Albumin/Globulin Ratio 0.7L Height (Feet): 5 Height (Inches): 5.00 Weight (Pounds): 172 General Appearance: WD/WN, no apparent distress, alert, overweight Neurologic: oriented x 3, responsive, depressed affect Reagan Marshall MD Jun 04, 2018 20:24
[2018-06-04] MEDS: OLANZapine 10mg tab NG SCH (20:44)
[2018-06-05] VITALS: BP 126/75
[2018-06-05] MEDS: Albuterol/Ipratropium 3ml neb HHN SCH ×4 (00:50→19:00)
[2018-06-05 04:00] VITALS: BP 120/56
--- NOTE | 2018-06-05 07:37 | NUR ---
HAND-OFF: Report given to RAUL Little. Pt is resting on the bed and no sign of acute distress noted.
--- NOTE | 2018-06-05 07:40 | NUR ---
NURSE NOTES: Report received from Chikis Ortega RN.Pt resting in bed awake,more alert,with appropriate verbal response,noted no resp distress on 2L NC,no signs of pain or discomfort,SR on the monitor,NGTF Glucerna 1.2 at 55 ml/hr,no residual noted,in placed per auscultation.incontinent of urine,on Purewick,IV site to RFA intact,skin warm and dry,SR up x2 HOB elevated,bed lock in lowest position,will continue with plans of care.
[2018-06-05 08:00] VITALS: BP 113/59
--- NOTE | 2018-06-05 08:02 | General Progress Note ---
Assessment/Plan Assessment/Plan (1) S/p fall (2) COPD Exacerbation (3) OA Patient to be continued on Tylenol D/w Dr. Garcia and he concurred. Subjective Date patient seen: Jun 05, 2018 Time patient seen: 07:30 - am Constitutional: Reports: weakness Neurologic/Psychiatric: Reports: weakness Allergies: Coded Allergies: No Known Allergies (Unverified , 05/22/18) Subjective Patient is in bed and c/o weakness no pain at this time. Objective Last 24 Hour Vital Signs Date Time Temp Pulse Resp B/P (MAP) Pulse Ox O2 Delivery O2 Flow Rate FiO2 06/05/18 06:47 75 18 96 Nasal Cannula 2.0 28 06/05/18 06:38 Nasal Cannula 2.0 28 06/05/18 06:38 93 Nasal Cannula 2.0 28 06/05/18 06:38 76 16 93 Nasal Cannula 2.0 28 06/05/18 04:00 97.8 72 21 120/56 (77) 96 06/05/18 04:00 72 06/05/18 04:00 Nasal Cannula 2.0 06/05/18 00:57 68 19 96 Nasal Cannula 2.0 28 06/05/18 00:50 72 15 95 Nasal Cannula 2.0 28 06/05/18 00:00 97.7 66 21 126/75 (92) 96 06/05/18 00:00 Nasal Cannula 2.0 06/05/18 00:00 68 06/04/18 20:00 Nasal Cannula 2.0 06/04/18 20:00 98.3 73 21 133/80 (97) 94 06/04/18 20:00 75 06/04/18 19:52 77 18 98 Nasal Cannula 2.0 28 06/04/18 19:45 94 Nasal Cannula 2.0 28 06/04/18 19:45 Nasal Cannula 2.0 28 06/04/18 19:42 70 17 94 Nasal Cannula 2.0 28 06/04/18 16:00 Nasal Cannula 2.0 06/04/18 16:00 88 06/04/18 16:00 97.8 83 21 127/74 (91) 94 06/04/18 12:57 76 16 97 Nasal Cannula 2.0 28 06/04/18 12:52 71 12 94 Nasal Cannula 2.0 28 06/04/18 12:00 98.6 76 20 128/74 (92) 93 06/04/18 12:00 Nasal Cannula 2.0 06/04/18 12:00 79 Intake and Output 06/04/18 06/05/18 18:59 06:59 Intake Total 760 ml 1210 ml Output Total 500 ml 650 ml Balance 260 ml 560 ml Intake Free Water 100 ml IV Total 550 ml Tube Feeding 660 ml 660 ml Output Urine Total 500 ml 650 ml # Voids 3 Height (Feet): 5 Height (Inches): 5.00 Weight (Pounds): 172 Objective Neck: non-tender, supple Cardiovascular: normal rate, regular rhythm Respiratory/Chest: decreased breath sounds Abdomen: non tender, soft Extremities: non-tender Edema: trace edema Skin: warm/dry Anjum Dumont Jun 05, 2018 08:01
[2018-06-05] MEDS: Solu-MEDROL 40mg Inj IVP SCH (08:50)
[2018-06-05] MEDS: Heparin 5000 units/ml inj SUBQ SCH ×2 (08:52→20:34)
--- NOTE | 2018-06-05 11:00 | NUR ---
NURSE NOTES: Pt stable no resp distress presented kept dry and clean,turned and repositioned
--- NOTE | 2018-06-05 11:06 | Infectious Diseases Prog Note ---
Assessment/Plan Assessment/Plan antibiotics : none A 1. aerococcus UTI s/p rx 2. COPD exacerbation 3. schizophrenia 4. hypertension 5. leucocytosis likely secondary to steroids 6. + blood cultures with coag neg staph likely contaminated 7. pneumonia improving P 1. continue off antibiotics Subjective Constitutional: Denies: fever, chills Respiratory: Reports: shortness of breath; Denies: dry cough Gastrointestinal/Abdominal: Denies: nausea, vomiting, diarrhea Musculoskeletal: Denies: pain Allergies: Coded Allergies: No Known Allergies (Unverified , 05/22/18) Objective Vital Signs Last 24 Hour Vital Signs Date Time Temp Pulse Resp B/P (MAP) Pulse Ox O2 Delivery O2 Flow Rate FiO2 06/05/18 08:00 97.5 86 22 113/59 (77) 92 06/05/18 08:00 81 06/05/18 08:00 Nasal Cannula 2.0 06/05/18 06:47 75 18 96 Nasal Cannula 2.0 28 06/05/18 06:38 Nasal Cannula 2.0 28 06/05/18 06:38 93 Nasal Cannula 2.0 28 06/05/18 06:38 76 16 93 Nasal Cannula 2.0 28 06/05/18 04:00 97.8 72 21 120/56 (77) 96 06/05/18 04:00 72 06/05/18 04:00 Nasal Cannula 2.0 06/05/18 00:57 68 19 96 Nasal Cannula 2.0 28 06/05/18 00:50 72 15 95 Nasal Cannula 2.0 28 06/05/18 00:00 97.7 66 21 126/75 (92) 96 06/05/18 00:00 Nasal Cannula 2.0 06/05/18 00:00 68 06/04/18 20:00 Nasal Cannula 2.0 06/04/18 20:00 98.3 73 21 133/80 (97) 94 06/04/18 20:00 75 06/04/18 19:52 77 18 98 Nasal Cannula 2.0 28 06/04/18 19:45 94 Nasal Cannula 2.0 28 06/04/18 19:45 Nasal Cannula 2.0 28 06/04/18 19:42 70 17 94 Nasal Cannula 2.0 28 06/04/18 16:00 Nasal Cannula 2.0 06/04/18 16:00 88 06/04/18 16:00 97.8 83 21 127/74 (91) 94 06/04/18 12:57 76 16 97 Nasal Cannula 2.0 28 06/04/18 12:52 71 12 94 Nasal Cannula 2.0 28 06/04/18 12:00 98.6 76 20 128/74 (92) 93 06/04/18 12:00 Nasal Cannula 2.0 06/04/18 12:00 79 Height (Feet): 5 Height (Inches): 5.00 Weight (Pounds): 172 Respiratory/Chest: lungs clear Cardiovascular: normal rate, regular rhythm, no gallop/murmur Abdomen: soft, non tender Extremities: other - + edema Current Medications Medications (Trade) Dose Ordered Sig/Salty Route PRN Reason Start Time Stop Time Status Last Admin Dose Admin Acetaminophen (Tylenol) 500 mg Q4H PRN NG Mild Pain/Temp > 100.5 05/27/18 13:09 06/22/18 13:08 05/30/18 10:32 Acetylcysteine (Mucomyst) 100 mg TIDRT HHN 05/25/18 13:00 06/24/18 12:59 06/05/18 06:39 Albuterol/ Ipratropium (Albuterol/ Ipratropium) 3 ml Q6HRT HHN 06/03/18 13:45 06/08/18 13:44 06/05/18 06:39 Dextrose 1,000 ml @ 50 mls/hr Q20H IV 06/02/18 17:56 07/02/18 17:55 06/05/18 05:55 Fluoxetine HCl (PROzac) 20 mg DAILY NG 05/28/18 09:00 06/22/18 11:44 06/05/18 08:50 Heparin Sodium (Porcine) (Heparin 5000 units/ml) 5,000 units EVERY 12 HOURS SUBQ 05/22/18 21:00 06/21/18 20:59 06/05/18 08:52 Hydralazine HCl (Apresoline) 10 mg Q4H PRN IV SBP > 170mmHg 05/29/18 16:45 06/28/18 16:44 Methylprednisolone Sodium Succinate (Solu-MEDROL) 30 mg DAILY IVP 06/01/18 09:00 06/23/18 08:59 06/05/18 08:50 Olanzapine (ZyPREXA) 15 mg BEDTIME NG 05/29/18 21:00 06/28/18 20:59 06/04/18 20:44 Annia Murphy MD Jun 05, 2018 11:06
[2018-06-05 12:00] VITALS: BP 102/69
--- NOTE | 2018-06-05 12:30 | Nephrology Progress Note ---
Assessment/Plan Problem List: (1) Proteinuria (2) Hypoalbuminemia (3) COPD exacerbation (4) Schizoaffective disorder (5) Azotemia Assessment rissing BUN and Hgb resolved admitted with exacerbation COPD and Hypoxia High WBCs : UTI , Pneumonia Proteinuria and HypoAlbuminemia Plan down on D5w rate Pulmonary support BIPAP as needed Antibiotics 24 h urine proteins CAN NOT BE COLLECTED UNLESS FOLEY_ WILL DEFER 2D echo Left ventricular ejection fraction grossly estimated to be 65 %. optimize cardiac status Subjective ROS Limited/Unobtainable: No Constitutional: Reports: malaise Objective Objective Last 24 Hour Vital Signs Date Time Temp Pulse Resp B/P (MAP) Pulse Ox O2 Delivery O2 Flow Rate FiO2 06/05/18 08:00 97.5 86 22 113/59 (77) 92 06/05/18 08:00 81 06/05/18 08:00 Nasal Cannula 2.0 06/05/18 06:47 75 18 96 Nasal Cannula 2.0 28 06/05/18 06:38 Nasal Cannula 2.0 28 06/05/18 06:38 93 Nasal Cannula 2.0 28 06/05/18 06:38 76 16 93 Nasal Cannula 2.0 28 06/05/18 04:00 97.8 72 21 120/56 (77) 96 06/05/18 04:00 72 06/05/18 04:00 Nasal Cannula 2.0 06/05/18 00:57 68 19 96 Nasal Cannula 2.0 28 06/05/18 00:50 72 15 95 Nasal Cannula 2.0 28 06/05/18 00:00 97.7 66 21 126/75 (92) 96 06/05/18 00:00 Nasal Cannula 2.0 06/05/18 00:00 68 06/04/18 20:00 Nasal Cannula 2.0 06/04/18 20:00 98.3 73 21 133/80 (97) 94 06/04/18 20:00 75 06/04/18 19:52 77 18 98 Nasal Cannula 2.0 28 06/04/18 19:45 94 Nasal Cannula 2.0 28 06/04/18 19:45 Nasal Cannula 2.0 28 06/04/18 19:42 70 17 94 Nasal Cannula 2.0 28 06/04/18 16:00 Nasal Cannula 2.0 06/04/18 16:00 88 06/04/18 16:00 97.8 83 21 127/74 (91) 94 06/04/18 12:57 76 16 97 Nasal Cannula 2.0 28 06/04/18 12:52 71 12 94 Nasal Cannula 2.0 28 Intake and Output 06/04/18 06/05/18 19:00 07:00 Intake Total 810 ml 1210 ml Output Total 500 ml 650 ml Balance 310 ml 560 ml Intake Free Water 100 ml IV Total 50 ml 550 ml Tube Feeding 660 ml 660 ml Output Urine Total 500 ml 650 ml # Voids 3 Height (Feet): 5 Height (Inches): 5.00 Weight (Pounds): 172 General Appearance: no apparent distress Cardiovascular: normal rate Respiratory/Chest: decreased breath sounds Abdomen: soft Objective no change Seamus Morfin MD Jun 05, 2018 12:30
--- NOTE | 2018-06-05 14:53 | General Progress Note ---
Assessment/Plan Problem List: (1) Hypoxia ICD Codes: R09.02 - Hypoxemia SNOMED: 650380256 (2) COPD exacerbation ICD Codes: J44.1 - Chronic obstructive pulmonary disease with (acute) exacerbation SNOMED: 954544664 (3) Hypercapnic respiratory failure, chronic ICD Codes: J96.12 - Chronic respiratory failure with hypercapnia SNOMED: 861269976 (4) Hypoxemia ICD Codes: R09.02 - Hypoxemia SNOMED: 398877663 (5) Benzodiazepine dependence ICD Codes: F13.20 - Sedative, hypnotic or anxiolytic dependence, uncomplicated SNOMED: 801389124 (6) Hypoalbuminemia ICD Codes: E88.09 - Other disorders of plasma-protein metabolism, not elsewhere classified SNOMED: 201448852 Status: progressing Assessment/Plan sepsis copd exacerbation improving renal failure improving malnutrition no change hypercapnic respiratory failure no wheezing Subjective ROS Limited/Unobtainable: Yes Allergies: Coded Allergies: No Known Allergies (Unverified , 05/22/18) Subjective lehtargic sob Objective Last 24 Hour Vital Signs Date Time Temp Pulse Resp B/P (MAP) Pulse Ox O2 Delivery O2 Flow Rate FiO2 06/05/18 12:59 80 18 97 Nasal Cannula 2.0 28 06/05/18 12:39 80 16 94 Nasal Cannula 2.0 28 06/05/18 12:00 97.9 84 22 102/69 (80) 94 06/05/18 12:00 Nasal Cannula 2.0 06/05/18 08:00 97.5 86 22 113/59 (77) 92 06/05/18 08:00 81 06/05/18 08:00 Nasal Cannula 2.0 06/05/18 06:47 75 18 96 Nasal Cannula 2.0 28 06/05/18 06:38 Nasal Cannula 2.0 28 06/05/18 06:38 93 Nasal Cannula 2.0 28 06/05/18 06:38 76 16 93 Nasal Cannula 2.0 28 06/05/18 04:00 97.8 72 21 120/56 (77) 96 06/05/18 04:00 72 06/05/18 04:00 Nasal Cannula 2.0 06/05/18 00:57 68 19 96 Nasal Cannula 2.0 28 06/05/18 00:50 72 15 95 Nasal Cannula 2.0 28 06/05/18 00:00 97.7 66 21 126/75 (92) 96 06/05/18 00:00 Nasal Cannula 2.0 06/05/18 00:00 68 06/04/18 20:00 Nasal Cannula 2.0 06/04/18 20:00 98.3 73 21 133/80 (97) 94 06/04/18 20:00 75 06/04/18 19:52 77 18 98 Nasal Cannula 2.0 28 06/04/18 19:45 94 Nasal Cannula 2.0 28 06/04/18 19:45 Nasal Cannula 2.0 28 06/04/18 19:42 70 17 94 Nasal Cannula 2.0 28 06/04/18 16:00 Nasal Cannula 2.0 06/04/18 16:00 88 06/04/18 16:00 97.8 83 21 127/74 (91) 94 Intake and Output 06/04/18 06/05/18 18:59 06:59 Intake Total 760 ml 1210 ml Output Total 500 ml 650 ml Balance 260 ml 560 ml Intake Free Water 100 ml IV Total 550 ml Tube Feeding 660 ml 660 ml Output Urine Total 500 ml 650 ml # Voids 3 Height (Feet): 5 Height (Inches): 5.00 Weight (Pounds): 172 General Appearance: confused Neck: supple Cardiovascular: normal rate Respiratory/Chest: chest wall non-tender Margot Dutta MD Jun 05, 2018 14:53
[2018-06-05] MEDS: Acetaminophen 650mg/20.3ml NG PRN (14:59)
--- NOTE | 2018-06-05 15:00 | Pulmonology Progress Note ---
Assessment/Plan Problems: (1) COPD exacerbation (2) Hypercapnic respiratory failure, chronic (3) Hypoxia (4) Benzodiazepine dependence (5) Hypercarbia (6) Schizoaffective disorder Assessment/Plan ASSESSMENT: The patient is a 67-year-old female smoker with history of chronic obstructive pulmonary disease, assisted living resident, hypertension, hyperlipidemia, hypothyroidism, presenting after a fall, respiratory distress, likely exacerbation of chronic obstructive pulmonary disease and urinary tract infection. PROBLEM LIST: 1. Acute on chronic hypercapnic respiratory failure. 2. Chronic obstructive pulmonary disease with acute exacerbation. 3. Urinary tract infection ( alpha hemolytic strep) 4. CoNS in blood likely contaminant 5. Leukocytosis secondary to above and steroids 6. Questionable fall. 7. History of psychiatric disorder. 8. Hypertension, hyperlipidemia, hypothyroidism. 9. Mild elevation of D-dimer. 10. Erythrocytosis & likely hemoconcentration 11. Elevated BUN TREATMENT PLAN: 1. Optimize pulmonary hygiene/mobilize as tolerated. 2. BiPAP 12/5 qHS and PRN 3. Titrate FiO2 to keep saturations greater than 90% 4. RTC and PRN DuoNeb + MUCOMYST + CPT 5. Decrease SM to 10 IV qDaily (D12) 6. Observe off Abx per ID 7. NPO, VSS - once cliff PO can D/C IVF 8. Monitor volumes and renal function, IVF per renal 9. DVT prophylaxis with heparin subcutaneous. 10. F/U neuro & psych recs, monitor MS, minimize sedative 11. The patient should have outpatient workup including pulmonary function tests Subjective Allergies: Coded Allergies: No Known Allergies (Unverified , 05/22/18) Subjective Much better on 2L - unclear if used BiPAP at night No cough + SOB no wheezing no CP no FC Objective Last 24 Hour Vital Signs Date Time Temp Pulse Resp B/P (MAP) Pulse Ox O2 Delivery O2 Flow Rate FiO2 06/05/18 12:59 80 18 97 Nasal Cannula 2.0 28 06/05/18 12:39 80 16 94 Nasal Cannula 2.0 28 06/05/18 12:00 97.9 84 22 102/69 (80) 94 06/05/18 12:00 Nasal Cannula 2.0 06/05/18 08:00 97.5 86 22 113/59 (77) 92 06/05/18 08:00 81 06/05/18 08:00 Nasal Cannula 2.0 06/05/18 06:47 75 18 96 Nasal Cannula 2.0 28 06/05/18 06:38 Nasal Cannula 2.0 28 06/05/18 06:38 93 Nasal Cannula 2.0 28 06/05/18 06:38 76 16 93 Nasal Cannula 2.0 28 06/05/18 04:00 97.8 72 21 120/56 (77) 96 06/05/18 04:00 72 06/05/18 04:00 Nasal Cannula 2.0 06/05/18 00:57 68 19 96 Nasal Cannula 2.0 28 06/05/18 00:50 72 15 95 Nasal Cannula 2.0 28 06/05/18 00:00 97.7 66 21 126/75 (92) 96 06/05/18 00:00 Nasal Cannula 2.0 06/05/18 00:00 68 06/04/18 20:00 Nasal Cannula 2.0 06/04/18 20:00 98.3 73 21 133/80 (97) 94 06/04/18 20:00 75 06/04/18 19:52 77 18 98 Nasal Cannula 2.0 28 06/04/18 19:45 94 Nasal Cannula 2.0 28 06/04/18 19:45 Nasal Cannula 2.0 28 06/04/18 19:42 70 17 94 Nasal Cannula 2.0 28 06/04/18 16:00 Nasal Cannula 2.0 06/04/18 16:00 88 06/04/18 16:00 97.8 83 21 127/74 (91) 94 Intake and Output 06/04/18 06/05/18 19:00 07:00 Intake Total 810 ml 1210 ml Output Total 500 ml 650 ml Balance 310 ml 560 ml Intake Free Water 100 ml IV Total 50 ml 550 ml Tube Feeding 660 ml 660 ml Output Urine Total 500 ml 650 ml # Voids 3 General Appearance: WD/WN, no acute distress HEENT: normocephalic, atraumatic, anicteric, mucous membranes moist Respiratory/Chest: chest wall non-tender, lungs clear - but distant, normal breath sounds, no respiratory distress Cardiovascular: normal peripheral pulses, normal rate, regular rhythm Abdomen: normal bowel sounds, soft, non tender, no organomegaly, non distended , no mass Extremities: no cyanosis, no clubbing, no edema Current Medications Medications (Trade) Dose Ordered Sig/Salty Route PRN Reason Start Time Stop Time Status Last Admin Dose Admin Acetaminophen (Tylenol) 500 mg Q4H PRN NG Mild Pain/Temp > 100.5 05/27/18 13:09 06/22/18 13:08 05/30/18 10:32 Acetylcysteine (Mucomyst) 100 mg TIDRT N 05/25/18 13:00 06/24/18 12:59 06/05/18 12:39 Albuterol/ Ipratropium (Albuterol/ Ipratropium) 3 ml Q6HRT N 06/03/18 13:45 06/08/18 13:44 06/05/18 12:39 Dextrose 1,000 ml @ 50 mls/hr Q20H IV 06/02/18 17:56 07/02/18 17:55 06/05/18 05:55 Fluoxetine HCl (PROzac) 20 mg DAILY NG 05/28/18 09:00 06/22/18 11:44 06/05/18 08:50 Heparin Sodium (Porcine) (Heparin 5000 units/ml) 5,000 units EVERY 12 HOURS SUBQ 05/22/18 21:00 06/21/18 20:59 06/05/18 08:52 Hydralazine HCl (Apresoline) 10 mg Q4H PRN IV SBP > 170mmHg 05/29/18 16:45 06/28/18 16:44 Methylprednisolone Sodium Succinate (Solu-MEDROL) 30 mg DAILY IVP 06/01/18 09:00 06/23/18 08:59 06/05/18 08:50 Olanzapine (ZyPREXA) 15 mg BEDTIME NG 05/29/18 21:00 06/28/18 20:59 06/04/18 20:44 Rory Membreno MD Jun 05, 2018 15:00
--- NOTE | 2018-06-05 15:18 | Cardiac Electrophysiology PN ---
Assessment/Plan Assessment/Plan 1. Shortness of breath due to COPD. On NC and Abx per Dr. Membreno Ruled out for [facility]. EF 65%. No Significant CHF. 2. Elevated white count, likely pneumonia, on BiPAP. Antibiotic per Dr. Cohen. 3. History of psychosis. 4. Sinus tach due to PNA. No fib DW RN and Dr. Membreno Subjective Subjective In SR on nasal cannula. Feeling better. Objective Last 24 Hour Vital Signs Date Time Temp Pulse Resp B/P (MAP) Pulse Ox O2 Delivery O2 Flow Rate FiO2 06/05/18 12:59 80 18 97 Nasal Cannula 2.0 28 06/05/18 12:39 80 16 94 Nasal Cannula 2.0 28 06/05/18 12:00 82 06/05/18 12:00 97.9 84 22 102/69 (80) 94 06/05/18 12:00 Nasal Cannula 2.0 06/05/18 08:00 97.5 86 22 113/59 (77) 92 06/05/18 08:00 81 06/05/18 08:00 Nasal Cannula 2.0 06/05/18 06:47 75 18 96 Nasal Cannula 2.0 28 06/05/18 06:38 Nasal Cannula 2.0 28 06/05/18 06:38 93 Nasal Cannula 2.0 28 06/05/18 06:38 76 16 93 Nasal Cannula 2.0 28 06/05/18 04:00 97.8 72 21 120/56 (77) 96 06/05/18 04:00 72 06/05/18 04:00 Nasal Cannula 2.0 06/05/18 00:57 68 19 96 Nasal Cannula 2.0 28 06/05/18 00:50 72 15 95 Nasal Cannula 2.0 28 06/05/18 00:00 97.7 66 21 126/75 (92) 96 06/05/18 00:00 Nasal Cannula 2.0 06/05/18 00:00 68 06/04/18 20:00 Nasal Cannula 2.0 06/04/18 20:00 98.3 73 21 133/80 (97) 94 06/04/18 20:00 75 06/04/18 19:52 77 18 98 Nasal Cannula 2.0 28 06/04/18 19:45 94 Nasal Cannula 2.0 28 06/04/18 19:45 Nasal Cannula 2.0 28 06/04/18 19:42 70 17 94 Nasal Cannula 2.0 28 06/04/18 16:00 Nasal Cannula 2.0 06/04/18 16:00 88 06/04/18 16:00 97.8 83 21 127/74 (91) 94 Intake and Output 06/04/18 06/05/18 19:00 07:00 Intake Total 810 ml 1210 ml Output Total 500 ml 650 ml Balance 310 ml 560 ml Intake Free Water 100 ml IV Total 50 ml 550 ml Tube Feeding 660 ml 660 ml Output Urine Total 500 ml 650 ml # Voids 3 Objective HEAD AND NECK: No JVD on N/C LUNGS: Coarse rhonchi. CARDIOVASCULAR: Regular S1 and S2 no M/G/R ABDOMEN: Soft. EXTREMITIES: No pitting edema. Zane Ocampo MD Jun 05, 2018 15:18
[2018-06-05 16:00] VITALS: BP 125/69
--- NOTE | 2018-06-05 16:01 | General Progress Note ---
Assessment/Plan Assessment/Plan Assessment and Recs: # Leukocytosis - is likely related to infection/pna --> smear has been reviewed and only 1% metamyelocytes noted, not significant finding --> esr and crp elevated --> wbc trend : 19--> 22--> 21--> 20-->14-->15 --> abx as per Dr. Cohen, currently on cefepime # Elevated d-dimer - r/o dvt of lower ext --> venous duplex negative scan --> likely elevated due to many possible reasons --> CXR 05/27 Elevated right hemidiaphragm. Bibasilar lung atelectasis. ->05/31: Bilateral lower lobe atelectasis and consolidation, improved since prior study of 05/26/2018 but persistent # Hypoxemia potentially copd related --> off bipap at this time --> bipap at night as per pulm # Hypercarbia # Benzodiazepine dependence # Psychosis # Sinus tach --> as per Dr. Ocampo The timing of this note does not necessarily reflect the time of the patient was seen. Greatly appreciate consultation! Subjective Constitutional: Denies: no symptoms, chills, diaphoresis, fever, malaise, weakness, other HEENT: Denies: no symptoms, eye pain, blurred vision, tearing, double vision, ear pain, ear discharge, nose pain, nose congestion, throat pain, throat swelling, mouth pain, mouth swelling, other Cardiovascular: Denies: no symptoms, chest pain, edema, irregular heart rate, lightheadedness, palpitations, syncope, other Respiratory: Denies: no symptoms, cough, orthopnea, shortness of breath, SOB with excertion, SOB at rest, sputum, stridor, wheezing, other Gastrointestinal/Abdominal: Denies: no symptoms, abdomen distended, abdominal pain, black stools, tarry stools, blood in stool, constipated, diarrhea, difficulty swallowing, nausea, poor appetite, poor fluid intake, rectal bleeding , vomiting, other Neurologic/Psychiatric: Denies: no symptoms, anxiety, depressed, emotional problems, headache, numbness, paresthesia, pre-existing deficit, seizure, tingling, tremors, weakness, other Endocrine: Denies: no symptoms, excessive sweating, flushing, intolerance to cold, intolerance to heat, increased hunger, increased thirst, increased urine, unexplained weight gain, unexplained weight loss, other Hematologic/Lymphatic: Denies: no symptoms, anemia, easy bleeding, easy bruising, other Allergies: Coded Allergies: No Known Allergies (Unverified , 05/22/18) Subjective 2: on venturi mask, no new changes, mild fever today, no chills 2: Pt is seen by bedside, awake, comfortable, wbc trending up 05/25: hgb and wbc trending up, seen in the room, awake, bipap, no fevers or cills , 05/26: no new changes, no fever, no chills, Back on BIPAP 05/29:seen by bedside in restraints. BP is elevated, CXR is reviewed, no acute findings, hgb trending up. 05/30: awake, comfortable, no acute distress, wbc 20, hgb still trending up at 19 today. 05/31: seen by bedside, awake, comfortable, no acute distress, 06/01: seen y bedside, awake, comfortable, no acute distress, wbc and hgb trending down. wbc 14, hgb 17. 06/02: Pt is resting in bed, on nasal cannula, was on BIPAP last night, wbc 15 06/04: seen by bedside, awake, comfortable, no events Objective Last 24 Hour Vital Signs Date Time Temp Pulse Resp B/P (MAP) Pulse Ox O2 Delivery O2 Flow Rate FiO2 06/05/18 12:59 80 18 97 Nasal Cannula 2.0 28 06/05/18 12:39 80 16 94 Nasal Cannula 2.0 28 06/05/18 12:00 82 06/05/18 12:00 97.9 84 22 102/69 (80) 94 06/05/18 12:00 Nasal Cannula 2.0 06/05/18 08:00 97.5 86 22 113/59 (77) 92 06/05/18 08:00 81 06/05/18 08:00 Nasal Cannula 2.0 06/05/18 06:47 75 18 96 Nasal Cannula 2.0 28 06/05/18 06:38 Nasal Cannula 2.0 28 06/05/18 06:38 93 Nasal Cannula 2.0 28 06/05/18 06:38 76 16 93 Nasal Cannula 2.0 28 06/05/18 04:00 97.8 72 21 120/56 (77) 96 06/05/18 04:00 72 06/05/18 04:00 Nasal Cannula 2.0 06/05/18 00:57 68 19 96 Nasal Cannula 2.0 28 06/05/18 00:50 72 15 95 Nasal Cannula 2.0 28 06/05/18 00:00 97.7 66 21 126/75 (92) 96 06/05/18 00:00 Nasal Cannula 2.0 06/05/18 00:00 68 06/04/18 20:00 Nasal Cannula 2.0 06/04/18 20:00 98.3 73 21 133/80 (97) 94 06/04/18 20:00 75 06/04/18 19:52 77 18 98 Nasal Cannula 2.0 28 06/04/18 19:45 94 Nasal Cannula 2.0 28 06/04/18 19:45 Nasal Cannula 2.0 28 06/04/18 19:42 70 17 94 Nasal Cannula 2.0 28 Intake and Output 06/04/18 06/05/18 19:00 07:00 Intake Total 810 ml 1210 ml Output Total 500 ml 650 ml Balance 310 ml 560 ml Intake Free Water 100 ml IV Total 50 ml 550 ml Tube Feeding 660 ml 660 ml Output Urine Total 500 ml 650 ml # Voids 3 Height (Feet): 5 Height (Inches): 5.00 Weight (Pounds): 172 Objective General Appearance: no apparent distress, GCS 15, non-toxic, other - sleepy Head: normocephalic, atraumatic Eyes: bilateral eye normal inspection, bilateral eye PERRL ENT: hearing grossly normal, normal pharynx, no angioedema, normal voice Neck: full range of motion, supple/symm/no masses Respiratory: chest non-tender, lungs clear, normal breath sounds Cardiovascular: regular rate, rhythm, no edema Gastrointestinal: normal bowel sounds, non tender Musculoskeletal: back normal, gait/station normal Jorje Troy MD Jun 05, 2018 16:01
--- NOTE | 2018-06-05 16:02 | General Progress Note ---
Assessment/Plan Assessment/Plan Assessment and Recs: # Leukocytosis - is likely related to infection/pna --> smear has been reviewed and only 1% metamyelocytes noted, not significant finding --> esr and crp elevated --> wbc trend : 19--> 22--> 21--> 20-->14-->15 --> abx as per Dr. Cohen, currently on cefepime # Elevated d-dimer - r/o dvt of lower ext --> venous duplex negative scan --> likely elevated due to many possible reasons --> CXR 05/27 Elevated right hemidiaphragm. Bibasilar lung atelectasis. ->05/31: Bilateral lower lobe atelectasis and consolidation, improved since prior study of 05/26/2018 but persistent # Hypoxemia potentially copd related --> off bipap at this time --> bipap at night as per pulm # Hypercarbia # Benzodiazepine dependence # Psychosis # Sinus tach --> as per Dr. Ocampo The timing of this note does not necessarily reflect the time of the patient was seen. Greatly appreciate consultation! Subjective Constitutional: Denies: no symptoms, chills, diaphoresis, fever, malaise, weakness, other HEENT: Denies: no symptoms, eye pain, blurred vision, tearing, double vision, ear pain, ear discharge, nose pain, nose congestion, throat pain, throat swelling, mouth pain, mouth swelling, other Cardiovascular: Denies: no symptoms, chest pain, edema, irregular heart rate, lightheadedness, palpitations, syncope, other Respiratory: Denies: no symptoms, cough, orthopnea, shortness of breath, SOB with excertion, SOB at rest, sputum, stridor, wheezing, other Gastrointestinal/Abdominal: Denies: no symptoms, abdomen distended, abdominal pain, black stools, tarry stools, blood in stool, constipated, diarrhea, difficulty swallowing, nausea, poor appetite, poor fluid intake, rectal bleeding , vomiting, other Genitourinary: Denies: no symptoms, burning, discharge, frequency, flank pain, hematuria, incontinence, pain, urgency, other Neurologic/Psychiatric: Denies: no symptoms, anxiety, depressed, emotional problems, headache, numbness, paresthesia, pre-existing deficit, seizure, tingling, tremors, weakness, other Hematologic/Lymphatic: Denies: no symptoms, anemia, easy bleeding, easy bruising, other Allergies: Coded Allergies: No Known Allergies (Unverified , 05/22/18) Subjective 2: on venturi mask, no new changes, mild fever today, no chills 2: Pt is seen by bedside, awake, comfortable, wbc trending up 05/25: hgb and wbc trending up, seen in the room, awake, bipap, no fevers or cills , 05/26: no new changes, no fever, no chills, Back on BIPAP 05/29:seen by bedside in restraints. BP is elevated, CXR is reviewed, no acute findings, hgb trending up. 05/30: awake, comfortable, no acute distress, wbc 20, hgb still trending up at 19 today. 05/31: seen by bedside, awake, comfortable, no acute distress, 06/01: seen y bedside, awake, comfortable, no acute distress, wbc and hgb trending down. wbc 14, hgb 17. 06/02: Pt is resting in bed, on nasal cannula, was on BIPAP last night, wbc 15 06/04: seen by bedside, awake, comfortable, no events 06/04: awake, comfortable, hgb is trending down and stable. Objective Last 24 Hour Vital Signs Date Time Temp Pulse Resp B/P (MAP) Pulse Ox O2 Delivery O2 Flow Rate FiO2 06/05/18 12:59 80 18 97 Nasal Cannula 2.0 28 06/05/18 12:39 80 16 94 Nasal Cannula 2.0 28 06/05/18 12:00 82 06/05/18 12:00 97.9 84 22 102/69 (80) 94 06/05/18 12:00 Nasal Cannula 2.0 06/05/18 08:00 97.5 86 22 113/59 (77) 92 06/05/18 08:00 81 06/05/18 08:00 Nasal Cannula 2.0 06/05/18 06:47 75 18 96 Nasal Cannula 2.0 28 06/05/18 06:38 Nasal Cannula 2.0 28 06/05/18 06:38 93 Nasal Cannula 2.0 28 06/05/18 06:38 76 16 93 Nasal Cannula 2.0 28 06/05/18 04:00 97.8 72 21 120/56 (77) 96 06/05/18 04:00 72 06/05/18 04:00 Nasal Cannula 2.0 06/05/18 00:57 68 19 96 Nasal Cannula 2.0 28 06/05/18 00:50 72 15 95 Nasal Cannula 2.0 28 06/05/18 00:00 97.7 66 21 126/75 (92) 96 06/05/18 00:00 Nasal Cannula 2.0 06/05/18 00:00 68 06/04/18 20:00 Nasal Cannula 2.0 06/04/18 20:00 98.3 73 21 133/80 (97) 94 06/04/18 20:00 75 06/04/18 19:52 77 18 98 Nasal Cannula 2.0 28 06/04/18 19:45 94 Nasal Cannula 2.0 28 06/04/18 19:45 Nasal Cannula 2.0 28 06/04/18 19:42 70 17 94 Nasal Cannula 2.0 28 Intake and Output 06/04/18 06/05/18 19:00 07:00 Intake Total 810 ml 1210 ml Output Total 500 ml 650 ml Balance 310 ml 560 ml Intake Free Water 100 ml IV Total 50 ml 550 ml Tube Feeding 660 ml 660 ml Output Urine Total 500 ml 650 ml # Voids 3 Height (Feet): 5 Height (Inches): 5.00 Weight (Pounds): 172 Objective General Appearance: no apparent distress, GCS 15, non-toxic, other - sleepy Head: normocephalic, atraumatic Eyes: bilateral eye normal inspection, bilateral eye PERRL ENT: hearing grossly normal, normal pharynx, no angioedema, normal voice Neck: full range of motion, supple/symm/no masses Respiratory: chest non-tender, lungs clear, normal breath sounds Cardiovascular: regular rate, rhythm, no edema Gastrointestinal: normal bowel sounds, non tender Musculoskeletal: back normal, gait/station normal Jorje Troy MD Jun 05, 2018 16:01
[2018-06-05] MEDS ORDERED: Acetaminophen 650mg/20.3ml NG PRN (17:15)
--- NOTE | 2018-06-05 17:50 | NUR ---
TRANSFER TO FLOOR: Patient transferred to 4Eroom 403 -2 perbed awake,alert in no resp distress . Report given to Queta CARTER. Belongings given to receiving RN.
--- NOTE | 2018-06-05 18:00 | NUR ---
NURSE NOTES: received patient transfered from [facility], report given by RAUL Little. Patient in no distress, no complaint of pain ordsicomfort, has NGT to R brooke receives Glucerna 1.2 at 55cc/hr. Patient also receives D5W at 50cc/hr through RFA IV acces, no sign of infiltration noted. Skin intact. Will continue to monitor patient.
--- NOTE | 2018-06-05 19:15 | NUR ---
HAND-OFF: Report given to RAUL Higginbotham.
--- NOTE | 2018-06-05 19:35 | NUR ---
NURSE NOTES: Recieved patient in bed, no acute distress noted, bed is in low position, locked and alarm is on. Call light is within reach, will continue with POC and continue to monitor for safety and comfort.
[2018-06-05 20:00] VITALS: BP 133/46
--- NOTE | 2018-06-05 20:29 | Neurology Progress Note ---
Interim History Interim History Interim History Ms. Whitfield feels unwell. She feels short of breath today - not getting enough oxygen! She is awake, alert and bright. She feels that her mind is clear. She feels weaker. She has not been out of bed today. She is on 2 L of nasal O2. She is eager to eat and drink. She is not delusional. She denies any new neurologic symptoms. Her memory is better. She is much more cooperative. Review of Systems Neuro Review of Systems Benign. Objective Physical Exam Last Vital Signs Date Time Temp Pulse Resp B/P (MAP) Pulse Ox O2 Delivery O2 Flow Rate FiO2 06/05/18 16:05 Nasal Cannula 2.0 06/05/18 16:00 78 06/05/18 16:00 97.7 22 125/69 (87) 95 06/05/18 12:59 28 Neurologic Exam Objective PHYSICAL EXAMINATION: GENERAL: She is a well-developed, well-nourished, pleasant lady, lying in bed. HEAD: Normocephalic and atraumatic. EENT: Examination benign NECK: No neck rigidity was observed. NEUROLOGICAL EXAMINATION: MENTAL STATUS EXAMINATION: She was awake and alert. She was oriented to self, [facility] [place]. She did not know the exact date. She was able to recall 3/3 words immediately, after 1 minute and after 3 minutes. She was able to remember president Theodora through [employer] Senior with hints. Her mathematical skills were impaired. Her visuospatial function was also impaired. SPEECH: She had a no dysarthria. LANGUAGE: She had a mild anomia for low-frequency words. CRANIAL NERVE EXAMINATION: II: The visual beltran were intact on confrontation testing. III, IV & : The external ocular movements were full and the pupils 3 mm in diameter, equal, round, regular, and reactive to light. V: She had normal facial sensations, and the temporales, masseters, and pterygoids functioned normally. VII: She had normal facial expressions and no facial asymmetry. VIII: She was able to hear well bilaterally and had no nystagmus. IX: The palate moved symmetrically on phonation. X: She had no hoarseness of voice. XI: The sternocleidomastoids and trapezii functioned normally. XII: The tongue was in the midline without any fasciculations or atrophy. MOTOR SYSTEM: The tone was normal in all four extremities. Examination of muscle mass revealed no focal wasting. Examination of power revealed G 5/5 power in the upper extremities. She also had G 5/5 in the lower extremities except for G 4+/5 in the iliopsoas. SENSORY EXAMINATION: She had intact sensations to light touch. COORDINATION: She performed well on axbugw-ap-dwpi testing. REFLEXES: 1+ and bilaterally symmetrical at the biceps, triceps, brachioradialis, and knees, 0 at both ankles. The plantar responses were flexor bilaterally. STANCE: Could not be tested. GAIT: Could not be tested. Impression/Recommendations Diagnostic Impression 1. Ms Leigh Ann Whitfield is a 67-year-old, right-handed, lady, who does have a past history of hypertension, dyslipidemia, chronic obstructive pulmonary disease, hypothyroidism, schizoaffective disorder, and recent falls, who was hospitalized on 05/22/2018 for an altered mental state and a fall at her board and [facility]. She was found to be hypoxic, hypercapnic, and had a significant leukocytosis. Since she has been in the hospital, she has improved. 2. She feels unwell. She feels short of breath today - not getting enough oxygen ! She is awake, alert and bright. She feels that her mind is clear. She feels weaker. She has not been out of bed today. She is on 2 L of nasal O2. She is eager to eat and drink. She is not delusional. She denies any new neurologic symptoms. Her memory is better. She is much more cooperative. 3. On neurological examination, at this time, she is disoriented to the exact date. Has problems with visuospatial function and higher cognitive function. Has a mild anomia, has proximal lower extremities weakness, an has globally diminished deep tendon reflexes. 4. Laboratory data on my initial evaluation revealed that she had a significant leukocytosis with a WBC count of 19,700. Her chemistry panel revealed that her uric acid level was elevated at 8.2, magnesium was low at 1.6. ProBNP that was elevated at 186, albumin was low at 2.5. Her B12 level was normal at 924. Her folate level was normal at 40.6. Her TSH was normal at 1.92 with a free T4 of 1.13. The Hemoglobin A1c was at 6%. Latest arterial blood gas revealed a pH at 7.37, pCO2 at 62, and pO2 at 56. Her urinalysis revealed 1+ leukocyte esterase, 0-2 red blood cells, and 2-4 white blood cells per high-power field. 5. Further laboratory tests have revealed a minimally elevated ammonia at 34. 6. The last ABG done on 06/02/18 revealed a pCO2 at 44 but a low pO2 at 62. 7. Her leukocytosis has improved with a WBC count of 15,500 on 06/02/18. Her HB is still elevated at 16.3G 8. The CT scan of the brain without contrast revealed atrophy and some deep white matter changes, but no acute pathology. 9. The EGG done on 05/24/18 was normal in the awake and drowsy states. 10. The patient's history, neurological examination, laboratory data, and imaging studies are most compatible with a toxic metabolic encephalopathy related to the hypoxia, hypercapnia, and an infectious process. Her encephalopathy continues to improve. Recommendations 1. Continue present management. 2. Swallowing study by speech pathologist. 3. Aggressive treatment of the patient's respiratory failure as per Dr. Membreno. 4. Aggressive treatment of the patient's infectious process as per Dr. Cohen. 5. Correction of fluid and electrolyte status. 6. Observe. Fransico Bolton M.D., M.S.P.H. Fransico Bolton MD Jun 05, 2018 20:29
--- NOTE | 2018-06-05 21:43 | General Progress Note ---
Assessment/Plan Problem List: (1) Schizoaffective disorder ICD Codes: F25.9 - Schizoaffective disorder, unspecified SNOMED: 47711167 (2) Acute metabolic encephalopathy ICD Codes: G93.41 - Metabolic encephalopathy SNOMED: 46524634, 638048937 Assessment/Plan cont prozac 20mg po qam cont zyprexa 15mg po qhs provided ro/st the pt has capacity to sign consent forms Subjective Constitutional: Reports: malaise, weakness Neurologic/Psychiatric: Reports: anxiety, depressed, emotional problems Allergies: Coded Allergies: No Known Allergies (Unverified , 05/22/18) Subjective the pt is better Objective Last 24 Hour Vital Signs Date Time Temp Pulse Resp B/P (MAP) Pulse Ox O2 Delivery O2 Flow Rate FiO2 06/05/18 20:57 Nasal Cannula 2.0 06/05/18 20:00 98.3 80 18 133/46 (75) 06/05/18 16:05 Nasal Cannula 2.0 06/05/18 16:00 78 06/05/18 16:00 97.7 77 22 125/69 (87) 95 06/05/18 12:59 80 18 97 Nasal Cannula 2.0 28 06/05/18 12:39 80 16 94 Nasal Cannula 2.0 28 06/05/18 12:00 82 06/05/18 12:00 97.9 84 22 102/69 (80) 94 06/05/18 12:00 Nasal Cannula 2.0 06/05/18 08:00 97.5 86 22 113/59 (77) 92 06/05/18 08:00 81 06/05/18 08:00 Nasal Cannula 2.0 06/05/18 06:47 75 18 96 Nasal Cannula 2.0 28 06/05/18 06:38 Nasal Cannula 2.0 28 06/05/18 06:38 93 Nasal Cannula 2.0 28 06/05/18 06:38 76 16 93 Nasal Cannula 2.0 28 06/05/18 04:00 97.8 72 21 120/56 (77) 96 06/05/18 04:00 72 06/05/18 04:00 Nasal Cannula 2.0 06/05/18 00:57 68 19 96 Nasal Cannula 2.0 28 06/05/18 00:50 72 15 95 Nasal Cannula 2.0 28 06/05/18 00:00 97.7 66 21 126/75 (92) 96 06/05/18 00:00 Nasal Cannula 2.0 06/05/18 00:00 68 Intake and Output 06/04/18 06/05/18 18:59 06:59 Intake Total 760 ml 1210 ml Output Total 500 ml 650 ml Balance 260 ml 560 ml Intake Free Water 100 ml IV Total 550 ml Tube Feeding 660 ml 660 ml Output Urine Total 500 ml 650 ml # Voids 3 Height (Feet): 5 Height (Inches): 5.00 Weight (Pounds): 172 General Appearance: WD/WN, alert, mild distress Neurologic: oriented x 3, responsive, depressed affect Reagan Marshall MD Jun 05, 2018 21:43
[2018-06-06 00:52] VITALS: BP 131/76
[2018-06-06] MEDS: Albuterol/Ipratropium 3ml neb HHN SCH ×4 (01:30→18:58)
[2018-06-06 04:00] VITALS: BP 154/90
--- NOTE | 2018-06-06 07:15 | NUR ---
HAND-OFF: Report given to Conner CARTER.
--- NOTE | 2018-06-06 07:57 | NUR ---
NURSE NOTES: Patient sitting HOB 45 degrees, awake and alert, oxygen at 2 liters nasal cannula, NG tube in place, bed in lowest position, call light within reach.
[2018-06-06 08:00] VITALS: BP 140/73
[2018-06-06] MEDS: Solu-MEDROL 40mg Inj IVP SCH (08:46)
[2018-06-06] MEDS: Heparin 5000 units/ml inj SUBQ SCH ×2 (08:48→20:12)
[2018-06-06] MEDS ORDERED: Solu-MEDROL 40mg Inj IVP SCH (09:00)
--- NOTE | 2018-06-06 09:44 | NUR ---
RD ASSESSMENT & RECOMMENDATIONS SEE CARE ACTIVITY FOR COMPLETE ASSESSMENT DAILY ESTIMATED NEEDS: Needs based on Pulmonary 62.6kg adj 25-30 kcals/kg 6052-6098 total kcals 1-1.5 g protein/kg 63-94 g total protein 25-30 mL/kg 6998-1368 total fluid mLs NUTRITION DIAGNOSIS: * Swallowing difficulty r/t dysphagia, respiratory status as evidenced by BROOM MAN recommends to continue nonoral feedings at this time, pt on NGT feeding, pt now on room air, NC prn. * Altered nutrition related lab values R/T prediabetes? clinical condition as evidenced by A1C of 6.0, elev BGs (174 172, now trending down), pt on solumedrol+ D5 IVF. CURRENT DIET: NPO CURRENT TF: Glucerna 1.2 @ 55ml/hr x 24 hrs PO DIET RECOMMENDATIONS: (WHEN SAFE FOR ORAL FEEDS-> CCHO MED, LOW NA/ texture per BROOM MAN) ENTERAL NUTRITION RECOMMENDATIONS: Glucerna 1.2 @55ml /hr x24 hrs to provide 1320ml, 1584 kcal, 79g prot, 1063ml free H2O - Continue current TF - HOB over 30 degrees/ water flush per MD ADDITIONAL RECOMMENDATIONS: * Re-calibrate bed scale, pt is s/p floor txr * Monitor lytes, replete as needed * Rec SSI- A1C=6.0, on Steroidal med + D5 IVF, on continuous TF * Bowel regimen, last bm 06/01 .
--- NOTE | 2018-06-06 10:07 | Pulmonology Progress Note ---
Assessment/Plan Problems: (1) COPD exacerbation (2) Hypercapnic respiratory failure, chronic (3) Hypoxia (4) Benzodiazepine dependence (5) Hypercarbia (6) Schizoaffective disorder Assessment/Plan ASSESSMENT: The patient is a 67-year-old female smoker with history of chronic obstructive pulmonary disease, assisted living resident, hypertension, hyperlipidemia, hypothyroidism, presenting after a fall, respiratory distress, likely exacerbation of chronic obstructive pulmonary disease and urinary tract infection. PROBLEM LIST: 1. Acute on chronic hypercapnic respiratory failure. 2. Chronic obstructive pulmonary disease with acute exacerbation. 3. Urinary tract infection ( alpha hemolytic strep) 4. CoNS in blood likely contaminant 5. Leukocytosis secondary to above and steroids 6. Questionable fall. 7. History of psychiatric disorder. 8. Hypertension, hyperlipidemia, hypothyroidism. 9. Mild elevation of D-dimer. 10. Erythrocytosis & likely hemoconcentration 11. Elevated BUN TREATMENT PLAN: 1. Optimize pulmonary hygiene/mobilize as tolerated. 2. BiPAP 12/5 qHS and PRN - ENCOURAGE NOCTURNAL USE 3. Titrate FiO2 to keep saturations greater than 90% 4. RTC and PRN DuoNeb + MUCOMYST + CPT 5. D/C SOLUMEDROL 6. Observe off Abx per ID 7. NPO, VSS - once cliff PO can D/C IVF 8. Monitor volumes and renal function, IVF per renal 9. DVT prophylaxis with heparin subcutaneous. 10. F/U neuro & psych recs, monitor MS, minimize sedative 11. The patient should have outpatient workup including pulmonary function tests Subjective Allergies: Coded Allergies: No Known Allergies (Unverified , 05/22/18) Subjective TTF MS, did not use BiPAP stable on 2 No cough + SOB no wheezing no CP no FC Objective Last 24 Hour Vital Signs Date Time Temp Pulse Resp B/P (MAP) Pulse Ox O2 Delivery O2 Flow Rate FiO2 06/06/18 06:49 105 18 95 Nasal Cannula 2.0 28 06/06/18 06:41 88 18 95 Room Air 2.0 28 06/06/18 06:41 Nasal Cannula 2.0 28 06/06/18 06:41 95 Nasal Cannula 2.0 28 06/06/18 04:00 97.4 91 18 154/90 (111) 06/06/18 03:11 Nasal Cannula 2.0 06/06/18 01:40 87 18 97 Nasal Cannula 2.0 28 06/06/18 01:30 89 18 91 Room Air 28 06/06/18 00:52 98.3 82 18 131/76 (94) 06/05/18 23:20 Nasal Cannula 2.0 06/05/18 20:57 Nasal Cannula 2.0 06/05/18 20:00 98.3 80 18 133/46 (75) 06/05/18 19:50 Nasal Cannula 2.0 28 06/05/18 19:50 Nasal Cannula 2.0 28 06/05/18 19:50 95 Nasal Cannula 2.0 28 06/05/18 19:50 Nasal Cannula 2.0 28 06/05/18 16:05 Nasal Cannula 2.0 06/05/18 16:00 78 06/05/18 16:00 97.7 77 22 125/69 (87) 95 06/05/18 12:59 80 18 97 Nasal Cannula 2.0 28 06/05/18 12:39 80 16 94 Nasal Cannula 2.0 28 06/05/18 12:00 82 06/05/18 12:00 97.9 84 22 102/69 (80) 94 06/05/18 12:00 Nasal Cannula 2.0 Intake and Output 06/05/18 06/06/18 19:00 07:00 Intake Total 1375 ml 795 ml Balance 1375 ml 795 ml Intake Free Water 200 ml 200 ml IV Total 450 ml 100 ml Tube Feeding 605 ml 495 ml Other 120 ml General Appearance: no acute distress, cachetic HEENT: normocephalic, atraumatic Respiratory/Chest: chest wall non-tender, lungs clear - but distant, no respiratory distress, no accessory muscle use Cardiovascular: normal peripheral pulses, normal rate, regular rhythm Abdomen: normal bowel sounds, soft, non tender, no organomegaly, non distended , no mass Extremities: no cyanosis, no clubbing, no edema Current Medications Medications (Trade) Dose Ordered Sig/Salty Route PRN Reason Start Time Stop Time Status Last Admin Dose Admin Acetaminophen (Tylenol) 500 mg Q4H PRN NG Mild Pain/Temp > 100.5 06/05/18 17:15 06/22/18 13:08 06/06/18 01:03 Acetylcysteine (Mucomyst) 100 mg TIDRT HHN 06/05/18 19:00 06/24/18 12:59 06/06/18 06:41 Albuterol/ Ipratropium (Albuterol/ Ipratropium) 3 ml Q6HRT HHN 06/05/18 19:00 06/08/18 13:44 06/06/18 06:41 Dextrose 1,000 ml @ 50 mls/hr Q20H IV 06/05/18 16:45 07/02/18 17:55 06/05/18 20:29 Fluoxetine HCl (PROzac) 20 mg DAILY NG 06/06/18 09:00 06/22/18 11:44 06/06/18 08:46 Heparin Sodium (Porcine) (Heparin 5000 units/ml) 5,000 units EVERY 12 HOURS SUBQ 06/05/18 21:00 06/21/18 20:59 06/06/18 08:48 Hydralazine HCl (Apresoline) 10 mg Q4H PRN IV SBP > 170mmHg 06/05/18 16:45 06/28/18 16:44 Methylprednisolone Sodium Succinate (Solu-MEDROL) 20 mg DAILY IVP 06/06/18 09:00 06/23/18 08:59 06/06/18 08:46 Olanzapine (ZyPREXA) 15 mg BEDTIME NG 06/05/18 21:00 06/28/18 20:59 06/05/18 20:33 Rory Membreno MD Jun 06, 2018 10:07
--- NOTE | 2018-06-06 11:56 | Infectious Diseases Prog Note ---
Assessment/Plan Assessment/Plan A; Chronic obstructive pulmonary disease exacerbation, leukocytosis; improving schizoaffective disorder, hypothyroidism, hyperlipidemia, hypertension. Positive blood culture with CoANS P: Observe off antibiotic Subjective Constitutional: Reports: no symptoms Respiratory: Reports: no symptoms Breasts: Reports: no symptoms Cardiovascular: Reports: no symptoms Gastrointestinal/Abdominal: Reports: no symptoms Allergies: Coded Allergies: No Known Allergies (Unverified , 05/22/18) Objective Vital Signs Last 24 Hour Vital Signs Date Time Temp Pulse Resp B/P (MAP) Pulse Ox O2 Delivery O2 Flow Rate FiO2 06/06/18 11:38 80 16 94 Room Air 21 06/06/18 09:00 Nasal Cannula 3.0 06/06/18 08:00 98.0 90 20 140/73 (95) 92 06/06/18 08:00 Nasal Cannula 3.0 06/06/18 06:49 105 18 95 Nasal Cannula 2.0 28 06/06/18 06:41 88 18 95 Room Air 2.0 28 06/06/18 06:41 Nasal Cannula 2.0 28 06/06/18 06:41 95 Nasal Cannula 2.0 28 06/06/18 04:00 97.4 91 18 154/90 (111) 06/06/18 03:11 Nasal Cannula 2.0 06/06/18 01:40 87 18 97 Nasal Cannula 2.0 28 06/06/18 01:30 89 18 91 Room Air 28 06/06/18 00:52 98.3 82 18 131/76 (94) 06/05/18 23:20 Nasal Cannula 2.0 06/05/18 20:57 Nasal Cannula 2.0 06/05/18 20:00 98.3 80 18 133/46 (75) 06/05/18 19:50 Nasal Cannula 2.0 28 06/05/18 19:50 Nasal Cannula 2.0 28 06/05/18 19:50 95 Nasal Cannula 2.0 28 06/05/18 19:50 Nasal Cannula 2.0 28 06/05/18 16:05 Nasal Cannula 2.0 06/05/18 16:00 78 06/05/18 16:00 97.7 77 22 125/69 (87) 95 06/05/18 12:59 80 18 97 Nasal Cannula 2.0 28 06/05/18 12:39 80 16 94 Nasal Cannula 2.0 28 06/05/18 12:00 82 06/05/18 12:00 97.9 84 22 102/69 (80) 94 06/05/18 12:00 Nasal Cannula 2.0 Height (Feet): 5 Height (Inches): 5.00 Weight (Pounds): 172 HEENT: mucous membranes moist Respiratory/Chest: lungs clear Cardiovascular: normal rate Abdomen: soft, non tender Extremities: no edema Neurologic/Psychiatric: alert, responsive Current Medications Medications (Trade) Dose Ordered Sig/Salty Route PRN Reason Start Time Stop Time Status Last Admin Dose Admin Acetaminophen (Tylenol) 500 mg Q4H PRN NG Mild Pain/Temp > 100.5 06/05/18 17:15 06/22/18 13:08 06/06/18 01:03 Acetylcysteine (Mucomyst) 100 mg TIDRT HHN 06/05/18 19:00 06/24/18 12:59 06/06/18 11:37 Albuterol/ Ipratropium (Albuterol/ Ipratropium) 3 ml Q6HRT HHN 06/05/18 19:00 06/08/18 13:44 06/06/18 11:38 Dextrose 1,000 ml @ 50 mls/hr Q20H IV 06/05/18 16:45 07/02/18 17:55 06/05/18 20:29 Fluoxetine HCl (PROzac) 20 mg DAILY NG 06/06/18 09:00 06/22/18 11:44 06/06/18 08:46 Heparin Sodium (Porcine) (Heparin 5000 units/ml) 5,000 units EVERY 12 HOURS SUBQ 06/05/18 21:00 06/21/18 20:59 06/06/18 08:48 Hydralazine HCl (Apresoline) 10 mg Q4H PRN IV SBP > 170mmHg 06/05/18 16:45 06/28/18 16:44 Methylprednisolone Sodium Succinate (Solu-MEDROL) 20 mg DAILY IVP 06/06/18 09:00 06/23/18 08:59 06/06/18 08:46 Olanzapine (ZyPREXA) 15 mg BEDTIME NG 06/05/18 21:00 06/28/18 20:59 06/05/18 20:33 Migel Cohen MD Jun 06, 2018 11:56
[2018-06-06 12:00] VITALS: BP 143/82
--- NOTE | 2018-06-06 12:57 | General Progress Note ---
Assessment/Plan Problem List: (1) Schizoaffective disorder ICD Codes: F25.9 - Schizoaffective disorder, unspecified SNOMED: 49132903 (2) Acute metabolic encephalopathy ICD Codes: G93.41 - Metabolic encephalopathy SNOMED: 94081041, 430051234 Status: stable Assessment/Plan cont prozac 20mg po qam cont zyprexa 15mg po qhs provided ro/st the pt has capacity to sign consent forms Subjective Constitutional: Reports: malaise, weakness Neurologic/Psychiatric: Reports: anxiety, depressed, emotional problems Allergies: Coded Allergies: No Known Allergies (Unverified , 05/22/18) Subjective the pt is better more alert Objective Last 24 Hour Vital Signs Date Time Temp Pulse Resp B/P (MAP) Pulse Ox O2 Delivery O2 Flow Rate FiO2 06/06/18 12:01 88 18 98 Nasal Cannula 2.0 28 06/06/18 12:00 98.2 93 20 143/82 (102) 92 06/06/18 11:38 80 16 94 Room Air 21 06/06/18 09:00 Nasal Cannula 3.0 06/06/18 08:00 98.0 90 20 140/73 (95) 92 06/06/18 08:00 Nasal Cannula 3.0 06/06/18 06:49 105 18 95 Nasal Cannula 2.0 28 06/06/18 06:41 88 18 95 Room Air 2.0 28 06/06/18 06:41 Nasal Cannula 2.0 28 06/06/18 06:41 95 Nasal Cannula 2.0 28 06/06/18 04:00 97.4 91 18 154/90 (111) 06/06/18 03:11 Nasal Cannula 2.0 06/06/18 01:40 87 18 97 Nasal Cannula 2.0 28 06/06/18 01:30 89 18 91 Room Air 28 06/06/18 00:52 98.3 82 18 131/76 (94) 06/05/18 23:20 Nasal Cannula 2.0 06/05/18 20:57 Nasal Cannula 2.0 06/05/18 20:00 98.3 80 18 133/46 (75) 06/05/18 19:50 Nasal Cannula 2.0 28 06/05/18 19:50 Nasal Cannula 2.0 28 06/05/18 19:50 95 Nasal Cannula 2.0 28 06/05/18 19:50 Nasal Cannula 2.0 28 06/05/18 16:05 Nasal Cannula 2.0 06/05/18 16:00 78 06/05/18 16:00 97.7 77 22 125/69 (87) 95 06/05/18 12:59 80 18 97 Nasal Cannula 2.0 28 Intake and Output 06/05/18 06/06/18 19:00 07:00 Intake Total 1375 ml 845 ml Balance 1375 ml 845 ml Intake Free Water 200 ml 200 ml IV Total 450 ml 150 ml Tube Feeding 605 ml 495 ml Other 120 ml Height (Feet): 5 Height (Inches): 5.00 Weight (Pounds): 172 General Appearance: WD/WN, no apparent distress, alert Neurologic: oriented x 3, responsive, depressed affect Reagan Marshall MD Jun 06, 2018 12:57
[2018-06-06 16:00] VITALS: BP 116/57
--- NOTE | 2018-06-06 16:09 | NUR ---
ST NOTE: MODIFIED BARIUM SWALLOW STUDY COMPLETED MODIFIED BARIUM SWALLOW STUDY FULL REPORT WILL FOLLOW UNDER ST NOTE IN CARE ACTIVITY. PT ALERT, COOPERATIVE, FOLLOWS DIRECTIONS, PT WITH NC(4L). PT WITH NGT(PROBABLE 12 FR). GIVEN PO TRIALS: THIN(TSPX2/MED CUP/UTE-KMGM-ALDJBVCEMC), NECTAR THICK(TSP/ CUP-SELF/PFI-[id number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
--- NOTE | 2018-06-06 16:17 | Nephrology Progress Note ---
Assessment/Plan Problem List: (1) Proteinuria (2) Hypoalbuminemia (3) COPD exacerbation (4) Schizoaffective disorder (5) Azotemia Assessment rising BUN and Hgb resolved admitted with exacerbation COPD and Hypoxia High WBCs : UTI , Pneumonia Proteinuria and HypoAlbuminemia Plan down on D5w rate Pulmonary support BIPAP as needed Antibiotics 24 h urine proteins CAN NOT BE COLLECTED UNLESS FOLEY_ WILL DEFER 2D echo Left ventricular ejection fraction grossly estimated to be 65 %. optimize cardiac status Subjective ROS Limited/Unobtainable: No Constitutional: Reports: malaise Objective Objective Last 24 Hour Vital Signs Date Time Temp Pulse Resp B/P (MAP) Pulse Ox O2 Delivery O2 Flow Rate FiO2 06/06/18 12:01 88 18 98 Nasal Cannula 2.0 28 06/06/18 12:00 98.2 93 20 143/82 (102) 92 06/06/18 11:38 80 16 94 Room Air 21 06/06/18 09:00 Nasal Cannula 3.0 06/06/18 08:00 98.0 90 20 140/73 (95) 92 06/06/18 08:00 Nasal Cannula 3.0 06/06/18 06:49 105 18 95 Nasal Cannula 2.0 28 06/06/18 06:41 88 18 95 Room Air 2.0 28 06/06/18 06:41 Nasal Cannula 2.0 28 06/06/18 06:41 95 Nasal Cannula 2.0 28 06/06/18 04:00 97.4 91 18 154/90 (111) 06/06/18 03:11 Nasal Cannula 2.0 06/06/18 01:40 87 18 97 Nasal Cannula 2.0 28 06/06/18 01:30 89 18 91 Room Air 28 06/06/18 00:52 98.3 82 18 131/76 (94) 06/05/18 23:20 Nasal Cannula 2.0 06/05/18 20:57 Nasal Cannula 2.0 06/05/18 20:00 98.3 80 18 133/46 (75) 06/05/18 19:50 Nasal Cannula 2.0 28 06/05/18 19:50 Nasal Cannula 2.0 28 06/05/18 19:50 95 Nasal Cannula 2.0 28 06/05/18 19:50 Nasal Cannula 2.0 28 Intake and Output 06/05/18 06/06/18 19:00 07:00 Intake Total 1375 ml 845 ml Balance 1375 ml 845 ml Intake Free Water 200 ml 200 ml IV Total 450 ml 150 ml Tube Feeding 605 ml 495 ml Other 120 ml Height (Feet): 5 Height (Inches): 5.00 Weight (Pounds): 172 General Appearance: no apparent distress Cardiovascular: normal rate Respiratory/Chest: decreased breath sounds Abdomen: soft Objective no change Seamus Morfin MD Jun 06, 2018 16:17
--- NOTE | 2018-06-06 16:27 | General Progress Note ---
Assessment/Plan Assessment/Plan (1) S/p fall (2) COPD Exacerbation (3) OA Patient to be continued on Tylenol D/w Dr. Garcia and he concurred. Subjective Date patient seen: Jun 06, 2018 Time patient seen: 04:00 - pm Constitutional: Reports: weakness Neurologic/Psychiatric: Reports: weakness Allergies: Coded Allergies: No Known Allergies (Unverified , 05/22/18) Subjective Patient is in c/o weakness no signs of pain or c/o pain at this time. Objective Last 24 Hour Vital Signs Date Time Temp Pulse Resp B/P (MAP) Pulse Ox O2 Delivery O2 Flow Rate FiO2 06/06/18 12:01 88 18 98 Nasal Cannula 2.0 28 06/06/18 12:00 98.2 93 20 143/82 (102) 92 06/06/18 11:38 80 16 94 Room Air 21 06/06/18 09:00 Nasal Cannula 3.0 06/06/18 08:00 98.0 90 20 140/73 (95) 92 06/06/18 08:00 Nasal Cannula 3.0 06/06/18 06:49 105 18 95 Nasal Cannula 2.0 28 06/06/18 06:41 88 18 95 Room Air 2.0 28 06/06/18 06:41 Nasal Cannula 2.0 28 06/06/18 06:41 95 Nasal Cannula 2.0 28 06/06/18 04:00 97.4 91 18 154/90 (111) 06/06/18 03:11 Nasal Cannula 2.0 06/06/18 01:40 87 18 97 Nasal Cannula 2.0 28 06/06/18 01:30 89 18 91 Room Air 28 06/06/18 00:52 98.3 82 18 131/76 (94) 06/05/18 23:20 Nasal Cannula 2.0 06/05/18 20:57 Nasal Cannula 2.0 06/05/18 20:00 98.3 80 18 133/46 (75) 06/05/18 19:50 Nasal Cannula 2.0 28 06/05/18 19:50 Nasal Cannula 2.0 28 06/05/18 19:50 95 Nasal Cannula 2.0 28 06/05/18 19:50 Nasal Cannula 2.0 28 Intake and Output 06/05/18 06/06/18 19:00 07:00 Intake Total 1375 ml 845 ml Balance 1375 ml 845 ml Intake Free Water 200 ml 200 ml IV Total 450 ml 150 ml Tube Feeding 605 ml 495 ml Other 120 ml Height (Feet): 5 Height (Inches): 5.00 Weight (Pounds): 172 Objective Neck: non-tender, supple Cardiovascular: normal rate, regular rhythm Respiratory/Chest: decreased breath sounds Abdomen: non tender, soft Extremities: non-tender Edema: trace edema Skin: warm/dry Anjum Dumont Jun 06, 2018 16:27
--- NOTE | 2018-06-06 16:42 | Cardiac Electrophysiology PN ---
Assessment/Plan Assessment/Plan 1. Shortness of breath due to COPD. On NC and Abx per Dr. Membreno Ruled out for CT. EF 65%. No Significant CHF. 2. Elevated white count, likely pneumonia, on BiPAP. Antibiotic per Dr. Cohen. 3. History of psychosis. 4. Sinus tach due to PNA. No fib DW RN Subjective Subjective In SR on nasal cannula transferred to [facility]. Objective Last 24 Hour Vital Signs Date Time Temp Pulse Resp B/P (MAP) Pulse Ox O2 Delivery O2 Flow Rate FiO2 06/06/18 12:01 88 18 98 Nasal Cannula 2.0 28 06/06/18 12:00 98.2 93 20 143/82 (102) 92 06/06/18 11:38 80 16 94 Room Air 21 06/06/18 09:00 Nasal Cannula 3.0 06/06/18 08:00 98.0 90 20 140/73 (95) 92 06/06/18 08:00 Nasal Cannula 3.0 06/06/18 06:49 105 18 95 Nasal Cannula 2.0 28 06/06/18 06:41 88 18 95 Room Air 2.0 28 06/06/18 06:41 Nasal Cannula 2.0 28 06/06/18 06:41 95 Nasal Cannula 2.0 28 06/06/18 04:00 97.4 91 18 154/90 (111) 06/06/18 03:11 Nasal Cannula 2.0 06/06/18 01:40 87 18 97 Nasal Cannula 2.0 28 06/06/18 01:30 89 18 91 Room Air 28 06/06/18 00:52 98.3 82 18 131/76 (94) 06/05/18 23:20 Nasal Cannula 2.0 06/05/18 20:57 Nasal Cannula 2.0 06/05/18 20:00 98.3 80 18 133/46 (75) 06/05/18 19:50 Nasal Cannula 2.0 28 06/05/18 19:50 Nasal Cannula 2.0 28 06/05/18 19:50 95 Nasal Cannula 2.0 28 06/05/18 19:50 Nasal Cannula 2.0 28 EENT: normal ENT inspection Intake and Output 06/05/18 06/06/18 19:00 07:00 Intake Total 1375 ml 845 ml Balance 1375 ml 845 ml Intake Free Water 200 ml 200 ml IV Total 450 ml 150 ml Tube Feeding 605 ml 495 ml Other 120 ml Objective HEAD AND NECK: No JVD on N/C LUNGS: Coarse rhonchi. CARDIOVASCULAR: Regular S1 and S2 no M/G/R ABDOMEN: Soft. EXTREMITIES: No pitting edema. Zane Ocampo MD Jun 06, 2018 16:42
--- NOTE | 2018-06-06 17:11 | General Progress Note ---
Assessment/Plan Problem List: (1) Hypoxia ICD Codes: R09.02 - Hypoxemia SNOMED: 619078865 (2) COPD exacerbation ICD Codes: J44.1 - Chronic obstructive pulmonary disease with (acute) exacerbation SNOMED: 590862052 (3) Hypercapnic respiratory failure, chronic ICD Codes: J96.12 - Chronic respiratory failure with hypercapnia SNOMED: 582649244 (4) Hypoxemia ICD Codes: R09.02 - Hypoxemia SNOMED: 162500185 (5) Benzodiazepine dependence ICD Codes: F13.20 - Sedative, hypnotic or anxiolytic dependence, uncomplicated SNOMED: 106910913 (6) Hypoalbuminemia ICD Codes: E88.09 - Other disorders of plasma-protein metabolism, not elsewhere classified SNOMED: 899689489 Status: progressing Assessment/Plan sepsis copd exacerbation improving renal failure improving hypoxia resolved reviewed chart and labs and meds hypercapnic respiratory failure Subjective ROS Limited/Unobtainable: Yes Allergies: Coded Allergies: No Known Allergies (Unverified , 05/22/18) Subjective lehtargic sob Objective Last 24 Hour Vital Signs Date Time Temp Pulse Resp B/P (MAP) Pulse Ox O2 Delivery O2 Flow Rate FiO2 06/06/18 12:01 88 18 98 Nasal Cannula 2.0 28 06/06/18 12:00 98.2 93 20 143/82 (102) 92 06/06/18 11:38 80 16 94 Room Air 21 06/06/18 09:00 Nasal Cannula 3.0 06/06/18 08:00 98.0 90 20 140/73 (95) 92 06/06/18 08:00 Nasal Cannula 3.0 06/06/18 06:49 105 18 95 Nasal Cannula 2.0 28 06/06/18 06:41 88 18 95 Room Air 2.0 28 06/06/18 06:41 Nasal Cannula 2.0 28 06/06/18 06:41 95 Nasal Cannula 2.0 28 06/06/18 04:00 97.4 91 18 154/90 (111) 06/06/18 03:11 Nasal Cannula 2.0 06/06/18 01:40 87 18 97 Nasal Cannula 2.0 28 06/06/18 01:30 89 18 91 Room Air 28 06/06/18 00:52 98.3 82 18 131/76 (94) 06/05/18 23:20 Nasal Cannula 2.0 06/05/18 20:57 Nasal Cannula 2.0 06/05/18 20:00 98.3 80 18 133/46 (75) 06/05/18 19:50 Nasal Cannula 2.0 28 06/05/18 19:50 Nasal Cannula 2.0 28 06/05/18 19:50 95 Nasal Cannula 2.0 28 06/05/18 19:50 Nasal Cannula 2.0 28 Intake and Output 06/05/18 06/06/18 19:00 07:00 Intake Total 1375 ml 845 ml Balance 1375 ml 845 ml Intake Free Water 200 ml 200 ml IV Total 450 ml 150 ml Tube Feeding 605 ml 495 ml Other 120 ml Height (Feet): 5 Height (Inches): 5.00 Weight (Pounds): 172 Neck: supple Cardiovascular: normal rate Respiratory/Chest: lungs clear Abdomen: soft Margot Dutta MD Jun 06, 2018 17:11
--- NOTE | 2018-06-06 19:18 | NUR ---
NURSE NOTES: Received patient in bed, no acute distress noted, patient must have Bipap on at night per MD, patient verbalized understanding. Call light is within reach, bed is locked, low position and alarm is on. Will continue with POC.
--- NOTE | 2018-06-06 19:30 | NUR ---
HAND-OFF: Report given to Evonne Blood RN. Patient sitting up in bed, awake and alert, watching television, pain treated with Dilaudid, in no apparent distress, bed in lowest position, call light within reach. Addendum: 06/06/18 at 1954 by TANVI PETTIT RN Error: wrong patient.
--- NOTE | 2018-06-06 19:49 | NUR ---
HAND-OFF: Report given to Kathy Higginbotham RN. Patient sitting HOB at 45 degress, on 2 liters nasal cannula, NG tube in place, purewick in place, bed in lowest position, call light within reach, in no apparent distress.
--- NOTE | 2018-06-06 19:50 | NUR ---
HAND-OFF: Report given to Kathy Higginbotham RN. Patient in supine position, resting comfortably, respirations at 16 breaths per minute, bed in lowest position, call light within reach, side rails up x 2, IV patent in right forearm running fluids, in no apparent distress.
--- NOTE | 2018-06-06 20:50 | Neurology Progress Note ---
Interim History Interim History Interim History Ms. Whitfield feels very well. She had her swallowing study today and did well. She is on a pureed diet and enjoying it. She is not short of breath She is awake, alert and bright. She feels that her mind is clear. She feels stronger. She has not been out of bed yet. She is on 2 L of nasal O2. She is not delusional. She denies any new neurologic symptoms. Her memory is better. She is much more cooperative. Review of Systems Neuro Review of Systems Benign. Objective Physical Exam Last Vital Signs Date Time Temp Pulse Resp B/P (MAP) Pulse Ox O2 Delivery O2 Flow Rate FiO2 06/06/18 19:21 Nasal Cannula 2.0 28 06/06/18 19:21 97 06/06/18 19:12 92 18 06/06/18 16:00 98.9 116/57 (76) Neurologic Exam Objective PHYSICAL EXAMINATION: GENERAL: She is a well-developed, well-nourished, pleasant lady, lying in bed. HEAD: Normocephalic and atraumatic. EENT: Examination benign NECK: No neck rigidity was observed. NEUROLOGICAL EXAMINATION: MENTAL STATUS EXAMINATION: She was awake and alert. She was oriented to self, [facility] and May 2018. She did not know the exact date. She was able to recall 3/3 words immediately, after 1 minute and after 3 minutes. She was able to remember president Theodora through [employer] with hints. Her mathematical skills were impaired. Her visuospatial function was also impaired. SPEECH: She had a no dysarthria. LANGUAGE: She had a mild anomia for low-frequency words. CRANIAL NERVE EXAMINATION: II: The visual beltran were intact on confrontation testing. III, IV & : The external ocular movements were full and the pupils 3 mm in diameter, equal, round, regular, and reactive to light. V: She had normal facial sensations, and the temporales, masseters, and pterygoids functioned normally. VII: She had normal facial expressions and no facial asymmetry. VIII: She was able to hear well bilaterally and had no nystagmus. IX: The palate moved symmetrically on phonation. X: She had no hoarseness of voice. XI: The sternocleidomastoids and trapezii functioned normally. XII: The tongue was in the midline without any fasciculations or atrophy. MOTOR SYSTEM: The tone was normal in all four extremities. Examination of muscle mass revealed no focal wasting. Examination of power revealed G 5/5 power in the upper extremities. She also had G 5/5 in the lower extremities except for G 4+/5 in the iliopsoas. SENSORY EXAMINATION: She had intact sensations to light touch. COORDINATION: She performed well on [id number] testing. REFLEXES: 1+ and bilaterally symmetrical at the biceps, triceps, brachioradialis, and knees, 0 at both ankles. The plantar responses were flexor bilaterally. STANCE: Could not be tested. GAIT: Could not be tested. Impression/Recommendations Diagnostic Impression 1. Ms Leigh Ann Whitfield is a 67-year-old, right-handed, lady, who does have a past history of hypertension, dyslipidemia, chronic obstructive pulmonary disease, hypothyroidism, schizoaffective disorder, and recent falls, who was hospitalized on 05/22/2018 for an altered mental state and a fall at [facility]. She was found to be hypoxic, hypercapnic, and had a significant leukocytosis. Since she has been in the hospital, she has improved. 2. She feels feels very well. She had her swallowing study today and did well. She is on a pureed diet and enjoying it. She is not short of breath. She is awake, alert and bright. She feels that her mind is clear. She feels stronger. She has not been out of bed yet. She is on 2 L of nasal O2. She is not delusional. She denies any new neurologic symptoms. Her memory is better. She is much more cooperative. 3. On neurological examination, at this time, she is disoriented to the exact date. Has problems with visuospatial function and higher cognitive function. Has a mild anomia, has proximal lower extremities weakness, an has globally diminished deep tendon reflexes. 4. Laboratory data on my initial evaluation revealed that she had a significant leukocytosis with a WBC count of 19,700. Her chemistry panel revealed that her uric acid level was elevated at 8.2, magnesium was low at 1.6. ProBNP that was elevated at 186, albumin was low at 2.5. Her B12 level was normal at 924. Her folate level was normal at 40.6. Her TSH was normal at 1.92 with a free T4 of 1.13. The Hemoglobin A1c was at 6%. Latest arterial blood gas revealed a pH at 7.37, pCO2 at 62, and pO2 at 56. Her urinalysis revealed 1+ leukocyte esterase, 0-2 red blood cells, and 2-4 white blood cells per high-power field. 5. Further laboratory tests have revealed a minimally elevated ammonia at 34. 6. The last ABG done on 06/02/18 revealed a pCO2 at 44 but a low pO2 at 62. 7. Her leukocytosis has improved with a WBC count of 15,500 on 06/02/18. Her HB is still elevated at 16.3G 8. The CT scan of the brain without contrast revealed atrophy and some deep white matter changes, but no acute pathology. 9. The EGG done on 05/24/18 was normal in the awake and drowsy states. 10. The patient's history, neurological examination, laboratory data, and imaging studies are most compatible with a toxic metabolic encephalopathy related to the hypoxia, hypercapnia, and an infectious process. Her encephalopathy continues to improve. Recommendations 1. Continue present management. 2. Aggressive treatment of the patient's respiratory failure as per Dr. Membreno. 3. Aggressive treatment of the patient's infectious process as per Dr. Cohen. 4. Correction of fluid and electrolyte status. 5. Observe. Fransico Bolton M.D., M.S.P.H. Fransico Bolton MD Jun 06, 2018 20:50
[2018-06-06 20:58] VITALS: BP 150/85
--- NOTE | 2018-06-06 21:11 | General Progress Note ---
Assessment/Plan Assessment/Plan Assessment and Recs: # Leukocytosis - is likely related to infection/pna --> smear has been reviewed and only 1% metamyelocytes noted, not significant finding --> esr and crp elevated --> wbc trend : 19--> 22--> 21--> 20-->14-->15 --> abx as per Dr. Cohen, currently on cefepime # Elevated d-dimer - r/o dvt of lower ext --> venous duplex negative scan --> likely elevated due to many possible reasons --> CXR 05/27 Elevated right hemidiaphragm. Bibasilar lung atelectasis. ->05/31: Bilateral lower lobe atelectasis and consolidation, improved since prior study of 05/26/2018 but persistent # Hypoxemia potentially copd related --> off bipap at this time --> bipap at night as per pulm # Hypercarbia # Benzodiazepine dependence # Psychosis # Sinus tach --> as per Dr. Ocampo The timing of this note does not necessarily reflect the time of the patient was seen. Greatly appreciate consultation! Subjective Constitutional: Denies: no symptoms, chills, diaphoresis, fever, malaise, weakness, other HEENT: Denies: no symptoms, eye pain, blurred vision, tearing, double vision, ear pain, ear discharge, nose pain, nose congestion, throat pain, throat swelling, mouth pain, mouth swelling, other Cardiovascular: Denies: no symptoms, chest pain, edema, irregular heart rate, lightheadedness, palpitations, syncope, other Respiratory: Denies: no symptoms, cough, orthopnea, shortness of breath, SOB with excertion, SOB at rest, sputum, stridor, wheezing, other Gastrointestinal/Abdominal: Denies: no symptoms, abdomen distended, abdominal pain, black stools, tarry stools, blood in stool, constipated, diarrhea, difficulty swallowing, nausea, poor appetite, poor fluid intake, rectal bleeding , vomiting, other Genitourinary: Denies: no symptoms, burning, discharge, frequency, flank pain, hematuria, incontinence, pain, urgency, other Neurologic/Psychiatric: Denies: no symptoms, anxiety, depressed, emotional problems, headache, numbness, paresthesia, pre-existing deficit, seizure, tingling, tremors, weakness, other Endocrine: Denies: no symptoms, excessive sweating, flushing, intolerance to cold, intolerance to heat, increased hunger, increased thirst, increased urine, unexplained weight gain, unexplained weight loss, other Hematologic/Lymphatic: Denies: no symptoms, anemia, easy bleeding, easy bruising, other Allergies: Coded Allergies: No Known Allergies (Unverified , 05/22/18) Subjective 2: on venturi mask, no new changes, mild fever today, no chills 05/24: Pt is seen by bedside, awake, comfortable, wbc trending up 05/25: hgb and wbc trending up, seen in the room, awake, bipap, no fevers or cills , 05/26: no new changes, no fever, no chills, Back on BIPAP 05/29:seen by bedside in restraints. BP is elevated, CXR is reviewed, no acute findings, hgb trending up. 05/30: awake, comfortable, no acute distress, wbc 20, hgb still trending up at 19 today. 05/31: seen by bedside, awake, comfortable, no acute distress, 06/01: seen y bedside, awake, comfortable, no acute distress, wbc and hgb trending down. wbc 14, hgb 17. 06/02: Pt is resting in bed, on nasal cannula, was on BIPAP last night, wbc 15 06/04: seen by bedside, awake, comfortable, no events 06/05: awake, comfortable, hgb is trending down and stable. 06/06: Pt is seen by bedside, awake, comfortable, no acute distress reported. wbc trending down Objective Last 24 Hour Vital Signs Date Time Temp Pulse Resp B/P (MAP) Pulse Ox O2 Delivery O2 Flow Rate FiO2 06/06/18 21:03 Nasal Cannula 2.0 06/06/18 20:58 98.7 91 20 150/85 (106) 06/06/18 19:21 Nasal Cannula 2.0 28 06/06/18 19:21 97 Nasal Cannula 2.0 28 06/06/18 19:12 92 18 97 Nasal Cannula 2.0 28 06/06/18 18:58 85 18 93 Nasal Cannula 2.0 28 06/06/18 16:00 98.9 84 18 116/57 (76) 94 06/06/18 12:01 88 18 98 Nasal Cannula 2.0 28 06/06/18 12:00 98.2 93 20 143/82 (102) 92 06/06/18 11:38 80 16 94 Room Air 21 06/06/18 09:00 Nasal Cannula 3.0 06/06/18 08:00 98.0 90 20 140/73 (95) 92 06/06/18 08:00 Nasal Cannula 3.0 06/06/18 06:49 105 18 95 Nasal Cannula 2.0 28 06/06/18 06:41 88 18 95 Room Air 2.0 28 06/06/18 06:41 Nasal Cannula 2.0 28 06/06/18 06:41 95 Nasal Cannula 2.0 28 06/06/18 04:00 97.4 91 18 154/90 (111) 06/06/18 03:11 Nasal Cannula 2.0 06/06/18 01:40 87 18 97 Nasal Cannula 2.0 28 06/06/18 01:30 89 18 91 Room Air 28 06/06/18 00:52 98.3 82 18 131/76 (94) 06/05/18 23:20 Nasal Cannula 2.0 Intake and Output 06/05/18 06/06/18 18:59 06:59 Intake Total 1425 ml 850 ml Balance 1425 ml 850 ml Free Water 200 ml 200 ml IV Total 500 ml 100 ml Tube Feeding 605 ml 550 ml Other 120 ml Height (Feet): 5 Height (Inches): 5.00 Weight (Pounds): 172 Objective General Appearance: no apparent distress, GCS 15, non-toxic, other - sleepy Head: normocephalic, atraumatic Eyes: bilateral eye normal inspection, bilateral eye PERRL ENT: hearing grossly normal, normal pharynx, no angioedema, normal voice Neck: full range of motion, supple/symm/no masses Respiratory: chest non-tender, lungs clear, normal breath sounds Cardiovascular: regular rate, rhythm, no edema Gastrointestinal: normal bowel sounds, non tender Musculoskeletal: back normal, gait/station normal Jorje Troy MD Jun 06, 2018 21:11
[2018-06-07 00:09] VITALS: BP 160/90
[2018-06-07] MEDS: Albuterol/Ipratropium 3ml neb HHN SCH ×4 (01:26→19:29)
[2018-06-07 04:00] VITALS: BP 155/84
--- NOTE | 2018-06-07 06:36 | NUR ---
HAND-OFF: Report given to Daya CARTER.
--- NOTE | 2018-06-07 07:26 | NUR ---
NURSE NOTES: Received report from RAUL Chavez. Pt in bed, awake, talkative, no complaints of pain, no apparent distress noted, bed in lowest position, call light within reach, Tube feeds running according to order.
[2018-06-07 08:00] VITALS: BP 128/72
[2018-06-07] MEDS: Solu-MEDROL 40mg Inj IVP SCH (08:09)
[2018-06-07] MEDS: Heparin 5000 units/ml inj SUBQ SCH ×2 (08:11→20:47)
--- NOTE | 2018-06-07 08:47 | General Progress Note ---
Assessment/Plan Assessment/Plan (1) S/p fall (2) COPD Exacerbation (3) OA Patient to be continued on Tylenol D/w Dr. Garcia and he concurred. Subjective Date patient seen: Jun 07, 2018 Time patient seen: 07:00 - am Constitutional: Reports: weakness Neurologic/Psychiatric: Reports: weakness Allergies: Coded Allergies: No Known Allergies (Unverified , 05/22/18) Subjective Patient continues to deny pain but is c/o weakness, she has no new complaints at this time. Objective Last 24 Hour Vital Signs Date Time Temp Pulse Resp B/P (MAP) Pulse Ox O2 Delivery O2 Flow Rate FiO2 06/07/18 08:00 98.0 85 21 128/72 (90) 94 06/07/18 07:08 92 18 Nasal Cannula 2.0 28 06/07/18 06:56 80 16 94 Nasal Cannula 2.0 28 06/07/18 06:56 Nasal Cannula 2.0 28 06/07/18 06:56 94 Nasal Cannula 2.0 28 06/07/18 05:47 69 18 96 06/07/18 04:00 97.0 79 20 155/84 (107) 06/07/18 02:42 71 20 97 Facial 40 06/07/18 01:37 85 22 98 Bi-pap 40 06/07/18 01:26 78 20 96 Bi-pap 40 06/07/18 01:05 73 22 98 Facial 40 06/07/18 00:09 97.7 82 20 160/90 (113) 06/06/18 23:25 75 22 96 Facial 40 06/06/18 22:17 84 22 95 Facial 40 06/06/18 21:03 Nasal Cannula 2.0 06/06/18 20:58 98.7 91 20 150/85 (106) 06/06/18 19:21 Nasal Cannula 2.0 28 06/06/18 19:21 97 Nasal Cannula 2.0 28 06/06/18 19:12 92 18 97 Nasal Cannula 2.0 28 06/06/18 18:58 85 18 93 Nasal Cannula 2.0 28 06/06/18 16:00 98.9 84 18 116/57 (76) 94 06/06/18 12:01 88 18 98 Nasal Cannula 2.0 28 06/06/18 12:00 98.2 93 20 143/82 (102) 92 06/06/18 11:38 80 16 94 Room Air 21 06/06/18 09:00 Nasal Cannula 3.0 Intake and Output 06/06/18 06/07/18 19:00 07:00 Intake Total 1380 ml 415 ml Output Total 250 ml Balance 1130 ml 415 ml Intake Oral 120 ml IV Total 600 ml 250 ml Tube Feeding 660 ml 165 ml Output Urine Total 250 ml # Voids 1 Height (Feet): 5 Height (Inches): 5.00 Weight (Pounds): 172 Objective Neck: non-tender, supple Cardiovascular: normal rate, regular rhythm Respiratory/Chest: decreased breath sounds Abdomen: non tender, soft Extremities: non-tender Edema: trace edema Skin: warm/dry Anjum Dumont Jun 07, 2018 08:47
--- NOTE | 2018-06-07 09:40 | NUR ---
ST NOTE: SWALLOW/SPEECH/COGNITION STATUS: FOLLOWED UP PT'S CONDITIONS AFTER THE MBSS. PT ATE 50% OF THE MEAL LAST NIGHT. SPOKE TO DARLING CARTER, RE:PT'S CONDITIONS AND MODIFIED BARIUM SWALLOW STUDY RESULT AND RECOMMENDATIONS. PT ALSO SEEN AT BEDSIDE IN AM. PER PT, DOESN'T FEEL HUNGRY, AND ONLY TOOK A FEW BITES. PT ALSO REPORTED THAT FEELING SLIGHTLY SHORT OF BREATH. DISCUSSED WITH RT, PT'S RESPIRATORY CONDITIONS IS IMPROVING. PER RNSHARAN REPORTED THAT PT ONLY TOOK A FEW BITES OF FOOD AND FELT CHOKING SENSATION. RECOMMENDATIONS: 1. PT PROBABLY IS A GOOD CANDIDATE FOR LONG-TERM NONORAL FEEDING PRIMARILY NUTRITION AND HYDRATION NEEDS IF PT RECEPTIVELY AGREES. 2. CONSIDER MOIST PUREE WITH NECTAR THICK LIQUIDS FOR ORAL GRATIFICATION ONLY IF PT EXPRESS THE WANTS AND NEEDS. D/W DARLING CARTER.
--- NOTE | 2018-06-07 09:53 | NUR ---
NURSE NOTES: Pt fed breakfast by Jennifer TSANG. According to SHARAN, pt ate 3 bites of food then stated "I feel like I am choking, I do not want anymore." Notified Rufina ROWELL will notify
[2018-06-07 12:00] VITALS: BP 126/72
--- NOTE | 2018-06-07 12:43 | NUR ---
NURSE NOTES: Notified Dr. Dutta regarding blood sugar 130, no sliding scale ordered.
--- NOTE | 2018-06-07 12:48 | Infectious Diseases Prog Note ---
Assessment/Plan Assessment/Plan A; Chronic obstructive pulmonary disease exacerbation, leukocytosis; improving schizoaffective disorder, hypothyroidism, hyperlipidemia, hypertension. Positive blood culture with CoANS P: Observe off antibiotic Subjective ROS Limited/Unobtainable: Yes Constitutional: Reports: no symptoms HEENT: Reports: no symptoms Respiratory: Reports: no symptoms Gastrointestinal/Abdominal: Reports: no symptoms, other - started on PO diet Allergies: Coded Allergies: No Known Allergies (Unverified , 05/22/18) Objective Vital Signs Last 24 Hour Vital Signs Date Time Temp Pulse Resp B/P (MAP) Pulse Ox O2 Delivery O2 Flow Rate FiO2 06/07/18 09:00 Nasal Cannula 2.0 06/07/18 08:00 98.0 85 21 128/72 (90) 94 06/07/18 07:08 92 18 Nasal Cannula 2.0 28 06/07/18 06:56 80 16 94 Nasal Cannula 2.0 28 06/07/18 06:56 Nasal Cannula 2.0 28 06/07/18 06:56 94 Nasal Cannula 2.0 28 06/07/18 05:47 69 18 96 06/07/18 04:00 97.0 79 20 155/84 (107) 06/07/18 02:42 71 20 97 Facial 40 06/07/18 01:37 85 22 98 Bi-pap 40 06/07/18 01:26 78 20 96 Bi-pap 40 06/07/18 01:05 73 22 98 Facial 40 06/07/18 00:09 97.7 82 20 160/90 (113) 06/06/18 23:25 75 22 96 Facial 40 06/06/18 22:17 84 22 95 Facial 40 06/06/18 21:03 Nasal Cannula 2.0 06/06/18 20:58 98.7 91 20 150/85 (106) 06/06/18 19:21 Nasal Cannula 2.0 28 06/06/18 19:21 97 Nasal Cannula 2.0 28 06/06/18 19:12 92 18 97 Nasal Cannula 2.0 28 06/06/18 18:58 85 18 93 Nasal Cannula 2.0 28 06/06/18 16:00 98.9 84 18 116/57 (76) 94 Height (Feet): 5 Height (Inches): 5.00 Weight (Pounds): 172 General Appearance: no acute distress HEENT: mucous membranes moist Respiratory/Chest: lungs clear Cardiovascular: normal rate Abdomen: soft, non tender, other - NG tube Extremities: no edema Neurologic/Psychiatric: alert, responsive Current Medications Medications (Trade) Dose Ordered Sig/Salty Route PRN Reason Start Time Stop Time Status Last Admin Dose Admin Acetaminophen (Tylenol) 500 mg Q4H PRN NG Mild Pain/Temp > 100.5 06/05/18 17:15 06/22/18 13:08 06/06/18 01:03 Acetylcysteine (Mucomyst) 100 mg TIDRT HHN 06/05/18 19:00 06/24/18 12:59 06/07/18 06:56 Albuterol/ Ipratropium (Albuterol/ Ipratropium) 3 ml Q6HRT HHN 06/05/18 19:00 06/08/18 13:44 06/07/18 06:56 Dextrose 1,000 ml @ 50 mls/hr Q20H IV 06/05/18 16:45 07/02/18 17:55 06/07/18 07:23 Fluoxetine HCl (PROzac) 20 mg DAILY NG 06/06/18 09:00 06/22/18 11:44 06/07/18 08:09 Heparin Sodium (Porcine) (Heparin 5000 units/ml) 5,000 units EVERY 12 HOURS SUBQ 06/05/18 21:00 06/21/18 20:59 06/07/18 08:11 Methylprednisolone Sodium Succinate (Solu-MEDROL) 20 mg DAILY IVP 06/06/18 09:00 06/23/18 08:59 06/07/18 08:09 Olanzapine (ZyPREXA) 15 mg BEDTIME NG 06/05/18 21:00 06/28/18 20:59 06/06/18 20:11 Migel Cohen MD Jun 07, 2018 12:48
--- NOTE | 2018-06-07 14:41 | NUR ---
NURSE NOTES: Removed pt's NGT as order by Dr. Dutta as pt tolerated eating lunch. No bleeding, no distress noted. Attempted to stop NC 3L, pt saturated on RA at 89% replaced NC at 2L, will continue to monitor.
--- NOTE | 2018-06-07 14:56 | Nephrology Progress Note ---
Assessment/Plan Problem List: (1) Proteinuria (2) Hypoalbuminemia (3) COPD exacerbation (4) Schizoaffective disorder (5) Azotemia Assessment rising BUN and Hgb resolved admitted with exacerbation COPD and Hypoxia High WBCs : UTI , Pneumonia Proteinuria and HypoAlbuminemia Plan down on D5w rate Pulmonary support BIPAP as needed Antibiotics 24 h urine proteins CAN NOT BE COLLECTED UNLESS FOLEY_ WILL DEFER 2D echo Left ventricular ejection fraction grossly estimated to be 65 %. optimize cardiac status Subjective ROS Limited/Unobtainable: No Constitutional: Reports: malaise Objective Objective Last 24 Hour Vital Signs Date Time Temp Pulse Resp B/P (MAP) Pulse Ox O2 Delivery O2 Flow Rate FiO2 06/07/18 13:53 94 16 Nasal Cannula 2.0 28 06/07/18 13:41 75 16 95 Nasal Cannula 2.0 28 06/07/18 12:00 97.4 92 20 126/72 (90) 94 06/07/18 09:00 Nasal Cannula 2.0 06/07/18 08:00 98.0 85 21 128/72 (90) 94 06/07/18 07:08 92 18 Nasal Cannula 2.0 28 06/07/18 06:56 80 16 94 Nasal Cannula 2.0 28 06/07/18 06:56 Nasal Cannula 2.0 28 06/07/18 06:56 94 Nasal Cannula 2.0 28 06/07/18 05:47 69 18 96 06/07/18 04:00 97.0 79 20 155/84 (107) 06/07/18 02:42 71 20 97 Facial 40 06/07/18 01:37 85 22 98 Bi-pap 40 06/07/18 01:26 78 20 96 Bi-pap 40 06/07/18 01:05 73 22 98 Facial 40 06/07/18 00:09 97.7 82 20 160/90 (113) 06/06/18 23:25 75 22 96 Facial 40 06/06/18 22:17 84 22 95 Facial 40 06/06/18 21:03 Nasal Cannula 2.0 06/06/18 20:58 98.7 91 20 150/85 (106) 06/06/18 19:21 Nasal Cannula 2.0 28 06/06/18 19:21 97 Nasal Cannula 2.0 28 06/06/18 19:12 92 18 97 Nasal Cannula 2.0 28 06/06/18 18:58 85 18 93 Nasal Cannula 2.0 28 06/06/18 16:00 98.9 84 18 116/57 (76) 94 Intake and Output 06/06/18 06/07/18 19:00 07:00 Intake Total 1380 ml 415 ml Output Total 250 ml Balance 1130 ml 415 ml Intake Oral 120 ml IV Total 600 ml 250 ml Tube Feeding 660 ml 165 ml Output Urine Total 250 ml # Voids 1 Height (Feet): 5 Height (Inches): 5.00 Weight (Pounds): 172 General Appearance: no apparent distress Objective no change Seamus Morfin MD Jun 07, 2018 14:56
--- NOTE | 2018-06-07 14:57 | NUR ---
ST NOTE: SWALLOW STATUS FOLLOWED UP PT'S CONDITIONS AFTER LUNCH. PER RNDARLING, PT ATE 50% OF THE MEAL BY HERSELF WITHOUT OVERT S/S OF ASPIRATION OR SHORTNESS OF BREATH. PER RN, , DR. ECHEVERRIA ORDER TO REMOVE THE NGT. PT SEEN AT BEDSIDE. ALERT, COOPERATIVE. PT WITH NC(2L), NO RESP DISTRESS WAS NOTED. PER PT, WAS ABLE TO TOLERATE THE LUNCH WITHOUT DIFFICULTY. EDUCATED AND TRAINED PT RE: SAFE SWALLOW STRATEGIES. PT VERBALIZED THE GOOD UNDERSTANDING OF INFO GIVEN. CONTINUE SKILLED ST SERVICE AND SAME POC.
--- NOTE | 2018-06-07 15:02 | NUR ---
ST NOTE: ST WEEKLY PT IS SLOWLY PROGRESSING.PT SEEN 6 TXS. MODIFIED BARIUM SWALLOW STUDY COMPLETED AND PO DIET IS SLOWLY INITIATED. NURSING STAFF MET ASPIRATION PRECAUTION GOALS. CONTINUE SKILLED ST SERVICE.
--- NOTE | 2018-06-07 15:52 | General Progress Note ---
Assessment/Plan Problem List: (1) Hypoxia ICD Codes: R09.02 - Hypoxemia SNOMED: 038708874 (2) COPD exacerbation ICD Codes: J44.1 - Chronic obstructive pulmonary disease with (acute) exacerbation SNOMED: 969947381 (3) Hypercapnic respiratory failure, chronic ICD Codes: J96.12 - Chronic respiratory failure with hypercapnia SNOMED: 099944841 (4) Hypoxemia ICD Codes: R09.02 - Hypoxemia SNOMED: 770901450 (5) Benzodiazepine dependence ICD Codes: F13.20 - Sedative, hypnotic or anxiolytic dependence, uncomplicated SNOMED: 577030496 (6) Hypoalbuminemia ICD Codes: E88.09 - Other disorders of plasma-protein metabolism, not elsewhere classified SNOMED: 278087732 Status: progressing Assessment/Plan sepsis copd exacerbation improving renal failure improving removed ng tube st eval afebrile hypercapnic respiratory failure Subjective ROS Limited/Unobtainable: Yes Constitutional: Reports: no symptoms Allergies: Coded Allergies: No Known Allergies (Unverified , 05/22/18) Subjective lehtargic sob Objective Last 24 Hour Vital Signs Date Time Temp Pulse Resp B/P (MAP) Pulse Ox O2 Delivery O2 Flow Rate FiO2 06/07/18 13:53 94 16 Nasal Cannula 2.0 28 06/07/18 13:41 75 16 95 Nasal Cannula 2.0 28 06/07/18 12:00 97.4 92 20 126/72 (90) 94 06/07/18 09:00 Nasal Cannula 2.0 06/07/18 08:00 98.0 85 21 128/72 (90) 94 06/07/18 07:08 92 18 Nasal Cannula 2.0 28 06/07/18 06:56 80 16 94 Nasal Cannula 2.0 28 06/07/18 06:56 Nasal Cannula 2.0 28 06/07/18 06:56 94 Nasal Cannula 2.0 28 06/07/18 05:47 69 18 96 06/07/18 04:00 97.0 79 20 155/84 (107) 06/07/18 02:42 71 20 97 Facial 40 06/07/18 01:37 85 22 98 Bi-pap 40 06/07/18 01:26 78 20 96 Bi-pap 40 06/07/18 01:05 73 22 98 Facial 40 06/07/18 00:09 97.7 82 20 160/90 (113) 06/06/18 23:25 75 22 96 Facial 40 06/06/18 22:17 84 22 95 Facial 40 06/06/18 21:03 Nasal Cannula 2.0 06/06/18 20:58 98.7 91 20 150/85 (106) 06/06/18 19:21 Nasal Cannula 2.0 28 06/06/18 19:21 97 Nasal Cannula 2.0 28 06/06/18 19:12 92 18 97 Nasal Cannula 2.0 28 06/06/18 18:58 85 18 93 Nasal Cannula 2.0 28 06/06/18 16:00 98.9 84 18 116/57 (76) 94 Intake and Output 06/06/18 06/07/18 19:00 07:00 Intake Total 1380 ml 415 ml Output Total 250 ml Balance 1130 ml 415 ml Intake Oral 120 ml IV Total 600 ml 250 ml Tube Feeding 660 ml 165 ml Output Urine Total 250 ml # Voids 1 Height (Feet): 5 Height (Inches): 5.00 Weight (Pounds): 172 Neck: supple Cardiovascular: normal rate Respiratory/Chest: lungs clear Abdomen: soft Margot Dutta MD Jun 07, 2018 15:52
[2018-06-07 16:00] VITALS: BP 124/79
--- NOTE | 2018-06-07 16:55 | Cardiac Electrophysiology PN ---
Assessment/Plan Assessment/Plan 1. Respiratory failure due to COPD. On NC and Abx per Dr. Membreno Ruled out for PA. EF 65%. No Significant CHF. 2. Elevated white count, likely pneumonia, on BiPAP. Antibiotic per Dr. Cohen. 3. History of psychosis. 4. Sinus tach due to PNA. No fib DW RN Subjective Subjective In SR on nasal cannula on NMB. Objective Last 24 Hour Vital Signs Date Time Temp Pulse Resp B/P (MAP) Pulse Ox O2 Delivery O2 Flow Rate FiO2 06/07/18 13:53 94 16 Nasal Cannula 2.0 28 06/07/18 13:41 75 16 95 Nasal Cannula 2.0 28 06/07/18 12:00 97.4 92 20 126/72 (90) 94 06/07/18 09:00 Nasal Cannula 2.0 06/07/18 08:00 98.0 85 21 128/72 (90) 94 06/07/18 07:08 92 18 Nasal Cannula 2.0 28 06/07/18 06:56 80 16 94 Nasal Cannula 2.0 28 06/07/18 06:56 Nasal Cannula 2.0 28 06/07/18 06:56 94 Nasal Cannula 2.0 28 06/07/18 05:47 69 18 96 06/07/18 04:00 97.0 79 20 155/84 (107) 06/07/18 02:42 71 20 97 Facial 40 06/07/18 01:37 85 22 98 Bi-pap 40 06/07/18 01:26 78 20 96 Bi-pap 40 06/07/18 01:05 73 22 98 Facial 40 06/07/18 00:09 97.7 82 20 160/90 (113) 06/06/18 23:25 75 22 96 Facial 40 06/06/18 22:17 84 22 95 Facial 40 06/06/18 21:03 Nasal Cannula 2.0 06/06/18 20:58 98.7 91 20 150/85 (106) 06/06/18 19:21 Nasal Cannula 2.0 28 06/06/18 19:21 97 Nasal Cannula 2.0 28 06/06/18 19:12 92 18 97 Nasal Cannula 2.0 28 06/06/18 18:58 85 18 93 Nasal Cannula 2.0 28 Intake and Output 2/19/19 2/20/19 19:00 07:00 Intake Total 1380 ml 415 ml Output Total 250 ml Balance 1130 ml 415 ml Intake Oral 120 ml IV Total 600 ml 250 ml Tube Feeding 660 ml 165 ml Output Urine Total 250 ml # Voids 1 Objective HEAD AND NECK: No JVD on N/C LUNGS: Coarse rhonchi. CARDIOVASCULAR: Regular S1 and S2 no M/G/R ABDOMEN: Soft. EXTREMITIES: No pitting edema. Zane Ocampo MD Jun 07, 2018 16:55
--- NOTE | 2018-06-07 19:49 | NUR ---
HAND-OFF: Report given to ARUL Ruiz.
--- NOTE | 2018-06-07 19:53 | NUR ---
NURSE NOTES: Received patient awake in bed, able to verbalize needs, c/o 5/10 pain in the buttocks. [place] noted. IV site asymptomatic, patent, dressing dry and intact. currently running IVF at 50ml/hr. Bed on lowest position, 2 side rails up, belongings and call light within reach. Will monitor blood glucose closely.
[2018-06-07 20:00] VITALS: BP 136/70
--- NOTE | 2018-06-07 20:18 | Neurology Progress Note ---
Interim History Interim History Interim History Ms. Whitfield feels very well. Her NGT is out. She is enjoying her pureed diet. She is not short of breath She is awake, alert and bright. She feels that her mind is clear. She feels stronger. She sat in a chair for few minutes today. She is on 2 L of nasal O2. She is not delusional. She denies any new neurologic symptoms. Review of Systems Neuro Review of Systems Benign. Objective Physical Exam Last Vital Signs Date Time Temp Pulse Resp B/P (MAP) Pulse Ox O2 Delivery O2 Flow Rate FiO2 06/07/18 19:38 85 16 96 Nasal Cannula 2.0 28 06/07/18 16:00 97.9 124/79 (94) Neurologic Exam Objective PHYSICAL EXAMINATION: GENERAL: She is a well-developed, well-nourished, pleasant lady, lying in bed. HEAD: Normocephalic and atraumatic. EENT: Examination benign NECK: No neck rigidity was observed. NEUROLOGICAL EXAMINATION: MENTAL STATUS EXAMINATION: She was awake and alert. She was oriented [place] [facility] [place]. She was able to recall 3/3 words immediately, after 1 minute and after 3 minutes. She was able to remember president [place] through [employer]uz Senior with hints. Her mathematical skills were impaired. Her visuospatial function was also impaired. SPEECH: She had a no dysarthria. LANGUAGE: She had a mild anomia for low-frequency words. CRANIAL NERVE EXAMINATION: II: The visual beltran were intact on confrontation testing. III, IV & : The external ocular movements were full and the pupils 3 mm in diameter, equal, round, regular, and reactive to light. V: She had normal facial sensations, and the temporales, masseters, and pterygoids functioned normally. VII: She had normal facial expressions and no facial asymmetry. VIII: She was able to hear well bilaterally and had no nystagmus. IX: The palate moved symmetrically on phonation. X: She had no hoarseness of voice. XI: The sternocleidomastoids and trapezii functioned normally. XII: The tongue was in the midline without any fasciculations or atrophy. MOTOR SYSTEM: The tone was normal in all four extremities. Examination of muscle mass revealed no focal wasting. Examination of power revealed G 5/5 power in the upper extremities. She also had G 5/5 in the lower extremities except for G 4+/5 in the iliopsoas. SENSORY EXAMINATION: She had intact sensations to light touch. COORDINATION: She performed well on [id number] testing. REFLEXES: 1+ and bilaterally symmetrical at the biceps, triceps, brachioradialis, and knees, 0 at both ankles. The plantar responses were flexor bilaterally. STANCE: Could not be tested. GAIT: Could not be tested. Impression/Recommendations Diagnostic Impression 1. Ms Leigh Ann Whitfield is a 67-year-old, right-handed, lady, who does have a past history of hypertension, dyslipidemia, chronic obstructive pulmonary disease, hypothyroidism, schizoaffective disorder, and recent falls, who was hospitalized on 05/22/2018 for an altered mental state and a fall at her board and longterm. She was found to be hypoxic, hypercapnic, and had a significant leukocytosis. Since she has been in the hospital, she has improved. 2. She feels very well. Her NGT is out. She is enjoying her pureed diet. She is not short of breath. She is awake, alert and bright. She feels that her mind is clear. She feels stronger. She sat in a chair for few minutes today. She is on 2 L of nasal O2. She is not delusional. She denies any new neurologic symptoms. 3. On neurological examination, at this time, she is disoriented to the exact date. Has problems with visuospatial function and higher cognitive function. Has a mild anomia, has proximal lower extremities weakness, an has globally diminished deep tendon reflexes. 4. Laboratory data on my initial evaluation revealed that she had a significant leukocytosis with a WBC count of 19,700. Her chemistry panel revealed that her uric acid level was elevated at 8.2, magnesium was low at 1.6. ProBNP that was elevated at 186, albumin was low at 2.5. Her B12 level was normal at 924. Her folate level was normal at 40.6. Her TSH was normal at 1.92 with a free T4 of 1.13. The Hemoglobin A1c was at 6%. Latest arterial blood gas revealed a pH at 7.37, pCO2 at 62, and pO2 at 56. Her urinalysis revealed 1+ leukocyte esterase, 0-2 red blood cells, and 2-4 white blood cells per high-power field. 5. Further laboratory tests have revealed a minimally elevated ammonia at 34. 6. The last ABG done on 06/02/18 revealed a pCO2 at 44 but a low pO2 at 62. 7. Her leukocytosis has improved with a WBC count of 15,500 on 06/02/18. Her HB is still elevated at 16.3G 8. The CT scan of the brain without contrast revealed atrophy and some deep white matter changes, but no acute pathology. 9. The EGG done on 05/24/18 was normal in the awake and drowsy states. 10. The patient's history, neurological examination, laboratory data, and imaging studies are most compatible with a toxic metabolic encephalopathy related to the hypoxia, hypercapnia, and an infectious process. Her encephalopathy continues to improve. Recommendations 1. Continue present management. 2. Aggressive treatment of the patient's respiratory dysfunction as per Dr. Membreno. 3. Aggressive treatment of the patient's infectious process as per Dr. Cohen. 4. Correction of fluid and electrolyte status. 5. Mobilize with PT/OT. 6. Observe. Fransico Bolton M.D., M.S.P.H. Fransico Bolton MD Jun 07, 2018 20:18
--- NOTE | 2018-06-07 20:35 | NUR ---
CASE MANAGEMENT: REVIEW SI: COPD EXACERBATION . T 97.4 HR 92 RR 20 BP 126/72 SAT 94% NC/2L WBC 14.8 AST 46 ALT 102 IS:SOLU MEDROL IV QD ALBUTEROL HHN Q6HR D5W IVF @50ML/HR MED/SURG STATUS DCP: PATIENT IS FROM [facility]
--- NOTE | 2018-06-07 20:39 | General Progress Note ---
Assessment/Plan Assessment/Plan Assessment and Recs: # Leukocytosis - is likely related to infection/pna --> smear has been reviewed and only 1% metamyelocytes noted, not significant finding --> esr and crp elevated --> wbc trend : 19--> 22--> 21--> 20-->14-->15 --> abx as per Dr. Cohen, currently on cefepime # Elevated d-dimer - r/o dvt of lower ext --> venous duplex negative scan --> likely elevated due to many possible reasons --> CXR 05/27 Elevated right hemidiaphragm. Bibasilar lung atelectasis. ->05/31: Bilateral lower lobe atelectasis and consolidation, improved since prior study of 05/26/2018 but persistent # Hypoxemia potentially copd related --> off bipap at this time --> bipap at night as per pulm # Hypercarbia # Benzodiazepine dependence # Psychosis # Sinus tach --> as per Dr. Ocampo The timing of this note does not necessarily reflect the time of the patient was seen. Greatly appreciate consultation! Subjective Constitutional: Denies: no symptoms, chills, diaphoresis, fever, malaise, weakness, other HEENT: Denies: no symptoms, eye pain, blurred vision, tearing, double vision, ear pain, ear discharge, nose pain, nose congestion, throat pain, throat swelling, mouth pain, mouth swelling, other Cardiovascular: Denies: no symptoms, chest pain, edema, irregular heart rate, lightheadedness, palpitations, syncope, other Respiratory: Denies: no symptoms, cough, orthopnea, shortness of breath, SOB with excertion, SOB at rest, sputum, stridor, wheezing, other Gastrointestinal/Abdominal: Denies: no symptoms, abdomen distended, abdominal pain, black stools, tarry stools, blood in stool, constipated, diarrhea, difficulty swallowing, nausea, poor appetite, poor fluid intake, rectal bleeding , vomiting, other Genitourinary: Denies: no symptoms, burning, discharge, frequency, flank pain, hematuria, incontinence, pain, urgency, other Neurologic/Psychiatric: Denies: no symptoms, anxiety, depressed, emotional problems, headache, numbness, paresthesia, pre-existing deficit, seizure, tingling, tremors, weakness, other Endocrine: Denies: no symptoms, excessive sweating, flushing, intolerance to cold, intolerance to heat, increased hunger, increased thirst, increased urine, unexplained weight gain, unexplained weight loss, other Hematologic/Lymphatic: Denies: no symptoms, anemia, easy bleeding, easy bruising, other Allergies: Coded Allergies: No Known Allergies (Unverified , 05/22/18) Subjective 2: on venturi mask, no new changes, mild fever today, no chills 05/24: Pt is seen by bedside, awake, comfortable, wbc trending up 05/25: hgb and wbc trending up, seen in the room, awake, bipap, no fevers or cills , 05/26: no new changes, no fever, no chills, Back on BIPAP 05/29:seen by bedside in restraints. BP is elevated, CXR is reviewed, no acute findings, hgb trending up. 05/30: awake, comfortable, no acute distress, wbc 20, hgb still trending up at 19 today. 05/31: seen by bedside, awake, comfortable, no acute distress, 06/01: seen y bedside, awake, comfortable, no acute distress, wbc and hgb trending down. wbc 14, hgb 17. 06/02: Pt is resting in bed, on nasal cannula, was on BIPAP last night, wbc 15 06/04: seen by bedside, awake, comfortable, no events 06/05: awake, comfortable, hgb is trending down and stable. 06/06: Pt is seen by bedside, awake, comfortable, no acute distress reported. wbc trending down 06/07: see by bedside, awake, comfortable. Objective Last 24 Hour Vital Signs Date Time Temp Pulse Resp B/P (MAP) Pulse Ox O2 Delivery O2 Flow Rate FiO2 06/07/18 19:38 85 16 96 Nasal Cannula 2.0 28 06/07/18 19:30 Nasal Cannula 2.0 28 06/07/18 19:30 79 16 95 Nasal Cannula 2.0 28 06/07/18 19:30 95 Nasal Cannula 2.0 28 06/07/18 16:00 97.9 87 20 124/79 (94) 93 06/07/18 13:53 94 16 Nasal Cannula 2.0 28 06/07/18 13:41 75 16 95 Nasal Cannula 2.0 28 06/07/18 12:00 97.4 92 20 126/72 (90) 94 06/07/18 09:00 Nasal Cannula 2.0 06/07/18 08:00 98.0 85 21 128/72 (90) 94 06/07/18 07:08 92 18 Nasal Cannula 2.0 28 06/07/18 06:56 80 16 94 Nasal Cannula 2.0 28 06/07/18 06:56 Nasal Cannula 2.0 28 06/07/18 06:56 94 Nasal Cannula 2.0 28 06/07/18 05:47 69 18 96 06/07/18 04:00 97.0 79 20 155/84 (107) 06/07/18 02:42 71 20 97 Facial 40 06/07/18 01:37 85 22 98 Bi-pap 40 06/07/18 01:26 78 20 96 Bi-pap 40 06/07/18 01:05 73 22 98 Facial 40 06/07/18 00:09 97.7 82 20 160/90 (113) 06/06/18 23:25 75 22 96 Facial 40 06/06/18 22:17 84 22 95 Facial 40 06/06/18 21:03 Nasal Cannula 2.0 06/06/18 20:58 98.7 91 20 150/85 (106) Intake and Output 06/06/18 06/07/18 19:00 07:00 Intake Total 1380 ml 415 ml Output Total 250 ml Balance 1130 ml 415 ml Intake Oral 120 ml IV Total 600 ml 250 ml Tube Feeding 660 ml 165 ml Output Urine Total 250 ml # Voids 1 Height (Feet): 5 Height (Inches): 5.00 Weight (Pounds): 172 Objective General Appearance: no apparent distress, GCS 15, non-toxic, other - sleepy Head: normocephalic, atraumatic Eyes: bilateral eye normal inspection, bilateral eye PERRL ENT: hearing grossly normal, normal pharynx, no angioedema, normal voice Neck: full range of motion, supple/symm/no masses Respiratory: chest non-tender, lungs clear, normal breath sounds Cardiovascular: regular rate, rhythm, no edema Gastrointestinal: normal bowel sounds, non tender Musculoskeletal: back normal, gait/station normal Jorje Troy MD Jun 07, 2018 20:39
--- NOTE | 2018-06-07 20:51 | Pulmonology Progress Note ---
Assessment/Plan Problems: (1) COPD exacerbation (2) Hypercapnic respiratory failure, chronic (3) Hypoxia (4) Benzodiazepine dependence (5) Hypercarbia (6) Schizoaffective disorder Assessment/Plan ASSESSMENT: The patient is a 67-year-old female smoker with history of chronic obstructive pulmonary disease, assisted living resident, hypertension, hyperlipidemia, hypothyroidism, presenting after a fall, respiratory distress, likely exacerbation of chronic obstructive pulmonary disease and urinary tract infection. PROBLEM LIST: 1. Acute on chronic hypercapnic respiratory failure. 2. Chronic obstructive pulmonary disease with acute exacerbation. 3. Urinary tract infection ( alpha hemolytic strep) 4. CoNS in blood likely contaminant 5. Leukocytosis secondary to above and steroids 6. Questionable fall. 7. History of psychiatric disorder. 8. Hypertension, hyperlipidemia, hypothyroidism. 9. Mild elevation of D-dimer. 10. Erythrocytosis & likely hemoconcentration 11. Elevated BUN TREATMENT PLAN: 1. Optimize pulmonary hygiene/mobilize as tolerated. 2. BiPAP 12/5 qHS and PRN - ENCOURAGE NOCTURNAL USE 3. Titrate FiO2 to keep saturations greater than 90% 4. RTC and PRN DuoNeb + MUCOMYST + CPT 5. D/C SOLUMEDROL - OBSERVE OFF STEROIDS 6. Observe off Abx per ID 7. Aspiration precautions 8. Monitor volumes and renal function, consider D/C IVF once taking adequate POP 9. DVT prophylaxis with heparin subcutaneous. 10. F/U neuro & psych recs, monitor MS, minimize sedative 11. The patient should have outpatient workup including pulmonary function tests Subjective Allergies: Coded Allergies: No Known Allergies (Unverified , 05/22/18) Subjective AFVSS O2 needs stable No cough less SOB no wheezing no CP no FC Objective Last 24 Hour Vital Signs Date Time Temp Pulse Resp B/P (MAP) Pulse Ox O2 Delivery O2 Flow Rate FiO2 06/07/18 19:38 85 16 96 Nasal Cannula 2.0 28 06/07/18 19:30 Nasal Cannula 2.0 28 06/07/18 19:30 79 16 95 Nasal Cannula 2.0 28 06/07/18 19:30 95 Nasal Cannula 2.0 28 06/07/18 16:00 97.9 87 20 124/79 (94) 93 06/07/18 13:53 94 16 Nasal Cannula 2.0 28 06/07/18 13:41 75 16 95 Nasal Cannula 2.0 28 06/07/18 12:00 97.4 92 20 126/72 (90) 94 06/07/18 09:00 Nasal Cannula 2.0 06/07/18 08:00 98.0 85 21 128/72 (90) 94 06/07/18 07:08 92 18 Nasal Cannula 2.0 28 06/07/18 06:56 80 16 94 Nasal Cannula 2.0 28 06/07/18 06:56 Nasal Cannula 2.0 28 06/07/18 06:56 94 Nasal Cannula 2.0 28 06/07/18 05:47 69 18 96 06/07/18 04:00 97.0 79 20 155/84 (107) 06/07/18 02:42 71 20 97 Facial 40 06/07/18 01:37 85 22 98 Bi-pap 40 06/07/18 01:26 78 20 96 Bi-pap 40 06/07/18 01:05 73 22 98 Facial 40 06/07/18 00:09 97.7 82 20 160/90 (113) 06/06/18 23:25 75 22 96 Facial 40 06/06/18 22:17 84 22 95 Facial 40 06/06/18 21:03 Nasal Cannula 2.0 06/06/18 20:58 98.7 91 20 150/85 (106) Intake and Output 06/06/18 06/07/18 19:00 07:00 Intake Total 1380 ml 415 ml Output Total 250 ml Balance 1130 ml 415 ml Intake Oral 120 ml IV Total 600 ml 250 ml Tube Feeding 660 ml 165 ml Output Urine Total 250 ml # Voids 1 General Appearance: WD/WN, no acute distress HEENT: normocephalic, atraumatic, anicteric, mucous membranes moist Respiratory/Chest: chest wall non-tender, lungs clear - but distant, normal breath sounds, no respiratory distress, no accessory muscle use Cardiovascular: normal peripheral pulses, normal rate, regular rhythm Abdomen: normal bowel sounds, soft, non tender, no organomegaly, non distended , no mass Extremities: no cyanosis, no clubbing, no edema Current Medications Medications (Trade) Dose Ordered Sig/Salty Route PRN Reason Start Time Stop Time Status Last Admin Dose Admin Acetaminophen (Tylenol) 500 mg Q4H PRN NG Mild Pain/Temp > 100.5 06/05/18 17:15 06/22/18 13:08 2/19/19 01:03 Acetylcysteine (Mucomyst) 100 mg TIDRT HHN 06/05/18 19:00 06/24/18 12:59 06/07/18 19:29 Albuterol/ Ipratropium (Albuterol/ Ipratropium) 3 ml Q6HRT HHN 06/05/18 19:00 06/08/18 13:44 06/07/18 19:29 Dextrose 1,000 ml @ 50 mls/hr Q20H IV 06/05/18 16:45 07/02/18 17:55 06/07/18 07:23 Fluoxetine HCl (PROzac) 20 mg DAILY NG 06/06/18 09:00 06/22/18 11:44 06/07/18 08:09 Heparin Sodium (Porcine) (Heparin 5000 units/ml) 5,000 units EVERY 12 HOURS SUBQ 06/05/18 21:00 06/21/18 20:59 06/07/18 08:11 Methylprednisolone Sodium Succinate (Solu-MEDROL) 20 mg DAILY IVP 06/06/18 09:00 06/23/18 08:59 06/07/18 08:09 Olanzapine (ZyPREXA) 15 mg BEDTIME NG 06/05/18 21:00 06/28/18 20:59 06/06/18 20:11 Rory Membreno MD Jun 07, 2018 20:51
--- NOTE | 2018-06-07 22:33 | General Progress Note ---
Assessment/Plan Problem List: (1) Schizoaffective disorder ICD Codes: F25.9 - Schizoaffective disorder, unspecified SNOMED: 74170005 (2) Acute metabolic encephalopathy ICD Codes: G93.41 - Metabolic encephalopathy SNOMED: 88171866, 651883309 Assessment/Plan cont prozac 20mg po qam cont zyprexa 15mg po qhs provided ro/st the pt has capacity to sign consent forms Subjective Neurologic/Psychiatric: Reports: anxiety, depressed, emotional problems Allergies: Coded Allergies: No Known Allergies (Unverified , 05/22/18) Subjective the pt is alert Objective Last 24 Hour Vital Signs Date Time Temp Pulse Resp B/P (MAP) Pulse Ox O2 Delivery O2 Flow Rate FiO2 06/07/18 20:00 97.0 78 18 136/70 (92) 95 06/07/18 19:38 85 16 96 Nasal Cannula 2.0 28 06/07/18 19:30 91 16 Nasal Cannula 2.0 28 06/07/18 19:30 Nasal Cannula 2.0 28 06/07/18 19:30 79 16 95 Nasal Cannula 2.0 28 06/07/18 19:30 95 Nasal Cannula 2.0 28 06/07/18 16:00 97.9 87 20 124/79 (94) 93 06/07/18 13:53 94 16 Nasal Cannula 2.0 28 06/07/18 13:41 75 16 95 Nasal Cannula 2.0 28 06/07/18 12:00 97.4 92 20 126/72 (90) 94 06/07/18 09:00 Nasal Cannula 2.0 06/07/18 08:00 98.0 85 21 128/72 (90) 94 06/07/18 07:08 92 18 Nasal Cannula 2.0 28 06/07/18 06:56 80 16 94 Nasal Cannula 2.0 28 06/07/18 06:56 Nasal Cannula 2.0 28 06/07/18 06:56 94 Nasal Cannula 2.0 28 06/07/18 05:47 69 18 96 06/07/18 04:00 97.0 79 20 155/84 (107) 06/07/18 02:42 71 20 97 Facial 40 06/07/18 01:37 85 22 98 Bi-pap 40 06/07/18 01:26 78 20 96 Bi-pap 40 06/07/18 01:05 73 22 98 Facial 40 06/07/18 00:09 97.7 82 20 160/90 (113) 06/06/18 23:25 75 22 96 Facial 40 Intake and Output 06/06/18 06/07/18 18:59 06:59 Intake Total 1380 ml 520 ml Output Total 250 ml Balance 1130 ml 520 ml Intake Oral 120 ml IV Total 600 ml 300 ml Tube Feeding 660 ml 220 ml Output Urine Total 250 ml # Voids 1 Height (Feet): 5 Height (Inches): 5.00 Weight (Pounds): 172 General Appearance: no apparent distress, alert Neurologic: oriented x 3, responsive, depressed affect Reagan Marshall MD Jun 07, 2018 22:33
[2018-06-08] VITALS: BP 138/80
[2018-06-08] MEDS: Albuterol/Ipratropium 3ml neb HHN SCH ×4 (01:11→20:47)
[2018-06-08 04:00] VITALS: BP 133/79
--- NOTE | 2018-06-08 07:00 | NUR ---
HAND-OFF: Report given to Daya Evans RN.
--- NOTE | 2018-06-08 07:31 | NUR ---
NURSE NOTES: Report received from RAUL Ruiz. Pt in bed, awake, talkative, vitals being taken by SHARAN Rodriguez. No complaints of pain, no apparent distress, bed in lowest position, call light within reach.
[2018-06-08 08:00] VITALS: BP 139/77
[2018-06-08] MEDS: Heparin 5000 units/ml inj SUBQ SCH ×2 (08:29→22:06)
--- NOTE | 2018-06-08 11:54 | GI Initial Consult Note ---
History of Present Illness General Date patient seen: Jun 08, 2018 Reason for Hospitalization: Dyspnea/Respdistress Referring physician: LEVY ECHEVERRIA Reason for Consultation: PEG EVALUATION Present Illness HPI Patient presents from a long-term facility for low oxygen saturations. The patient herself has no specific complaints. The patient is sleepy but can answer basic yes or no questions. There is no fever or chills. There is no cough or congestion. There is no chest pain or shortness of breath. There are no other complaints. GI consulted for PEG evaluation. Initial HPI as noted above. Patient was seen , awake alert and oriented x4. Currently on 3 L of nasal cannula noted with pulmonary congestion. Patient denies any abdominal pain. Denies any nausea vomiting or diarrhea. According to the patient, she is eating well. RN reports that the patient is eating approximately over 50-75% per meal. Speech therapy evaluation noted, patient passed diet. Unknown history of endoscopic colonoscopy at this time. Labs reviewed; no anemia noted, mild leukocytosis and acute transaminitis. Home Meds Reported Medications Levothyroxine Sodium (Synthroid) 50 Mcg Tablet, 50 MCG ORAL DAILY, TAB Take in the morning on an empty stomach, at least 30 minutes beforefood. 05/22/18 Lorazepam* (LORAZEPAM*) 2 Mg Tablet, 2 MG ORAL Q4HR, TAB 05/22/18 Unable to Obtain Medications (UNABLE TO OBTAIN MEDS) 1 Ea Ea 05/22/18 Lorazepam* (LORAZEPAM*) 1 Mg Tablet, 1 MG ORAL Q4H for ANXIETY, TAB 04/25/18 Divalproex Sodium (DIVALPROEX SODIUM ER) 500 Mg Tab.er.24h, 500 MG PO BID, TAB 04/25/18 Fluphenazine Hcl* (PROLIXIN*) 5 Mg Tablet, 10 MG ORAL HS, #10 TAB 0 Refills 04/25/18 Fluphenazine Hcl* (PROLIXIN*) 5 Mg Tablet, 5 MG ORAL DAILY, #10 TAB 0 Refills 04/25/18 Temazepam (TEMAZEPAM*) 15 Mg Capsule, 15 MG ORAL BEDTIME, #30 CAP 0 Refills 04/25/18 Olanzapine (OLANZAPINE ODT) 10 Mg Tab.rapdis, 10 MG PO DAILY, TAB 04/25/18 Omeprazole (OMEPRAZOLE) 20 Mg Capsule.dr, 20 MG ORAL DAILY, CAP 04/25/18 Levothyroxine Sodium* (LEVOTHYROXINE SODIUM*) 75 Mcg Tablet, 50 MCG ORAL AM, TAB Take in the morning on an empty stomach, at least 30 minutes before food. 04/25/18 Amlodipine Besylate* (AMLODIPINE BESYLATE*) 10 Mg Tablet, 10 MG ORAL DAILY, TAB 04/25/18 Atorvastatin Calcium* (ATORVASTATIN CALCIUM*) 20 Mg Tablet, 10 MG ORAL BEDTIME, TAB 04/25/18 Metoprolol Succinate* (METOPROLOL SUCCINATE*) 100 Mg Tab.er.24h, 100 MG ORAL DAILY, TAB 04/25/18 Med list reviewed/reconciled: Yes Allergies: Coded Allergies: No Known Allergies (Unverified , 05/22/18) Patient History History Provided By: Patient, Medical Record PMH Narrative Past Medical History: see triage record, HTN, psych hx Social History: Denies: smoking, alcohol use, drug use Reviewed Nursing Documentation: PMH: Agreed; PSxH: Agreed Nursing Documentation-PMH Past Medical History: No Stated History Review of Systems All Other Systems: negative except mentioned in HPI Physical Exam Vital Signs Date Time Temp Pulse Resp B/P (MAP) Pulse Ox O2 Delivery O2 Flow Rate FiO2 06/04/18 07:14 74 16 96 Nasal Cannula 2.0 28 06/04/18 08:00 97.9 131/74 (93) Sp02 EP Interpretation: reviewed, normal General Appearance: well appearing, no apparent distress, alert Head: normocephalic EENT: PERRL/EOMI, normal ENT inspection Neck: supple Respiratory: normal breath sounds, no respiratory distress Cardiovascular: normal rate Gastrointestinal: normal inspection, non tender, soft, normal bowel sounds, non -distended Rectal: deferred Genitourinary: no CVA tenderness Musculoskeletal: normal inspection, back normal Neurologic: normal inspection, alert, oriented x3, responsive Psychiatric: normal inspection, judgement/insight normal, memory normal Skin: normal inspection, normal color, no rash, warm/dry, palpation normal, well hydrated Lymphatic: normal inspection, no adenopathy Current Medications Current Medications Medications (Trade) Dose Ordered Sig/Salty Route PRN Reason Start Time Stop Time Status Last Admin Dose Admin Acetaminophen (Tylenol) 500 mg Q4H PRN NG Mild Pain/Temp > 100.5 06/05/18 17:15 06/22/18 13:08 06/06/18 01:03 Acetylcysteine (Mucomyst) 100 mg TIDRT HHN 06/05/18 19:00 06/24/18 12:59 06/08/18 08:03 Albuterol/ Ipratropium (Albuterol/ Ipratropium) 3 ml Q6HRT HHN 06/05/18 19:00 06/08/18 13:44 06/08/18 08:02 Dextrose 1,000 ml @ 50 mls/hr Q20H IV 06/05/18 16:45 07/02/18 17:55 06/08/18 03:49 Fluoxetine HCl (PROzac) 20 mg DAILY NG 06/06/18 09:00 06/22/18 11:44 06/08/18 08:27 Heparin Sodium (Porcine) (Heparin 5000 units/ml) 5,000 units EVERY 12 HOURS SUBQ 06/05/18 21:00 06/21/18 20:59 06/08/18 08:29 Olanzapine (ZyPREXA) 15 mg BEDTIME NG 06/05/18 21:00 06/28/18 20:59 06/07/18 20:46 GI: Plan Problems: (1) Encounter for PEG (percutaneous endoscopic gastrostomy) (2) Dysphasia (3) Malnutrition Plan Speech therapy recommendations noted, passed. No PEG necessary, patient tolerating diet over 50-75% pulmonary care Supportive care Push p.o. Strict aspiration precautions PPI Follow labs Outpatient GI procedures Discussed with Dr. Acosta. Thank you for this patient referral, we will follow. The patient was seen and examined at bedside and all new and available data was reviewed in the patients chart. I agree with the above findings, impression and plan. (Patient seen earlier today. Signature stamp does not reflect patient encounter time.). - MD Chloe Ortiz,Jaleesa-French [employer] Jun 08, 2018 11:54
[2018-06-08 12:00] VITALS: BP 140/79
--- NOTE | 2018-06-08 12:34 | General Progress Note ---
Assessment/Plan Problem List: (1) Hypoxia ICD Codes: R09.02 - Hypoxemia SNOMED: 675482391 (2) COPD exacerbation ICD Codes: J44.1 - Chronic obstructive pulmonary disease with (acute) exacerbation SNOMED: 912726402 (3) Hypercapnic respiratory failure, chronic ICD Codes: J96.12 - Chronic respiratory failure with hypercapnia SNOMED: 864189910 (4) Hypoxemia ICD Codes: R09.02 - Hypoxemia SNOMED: 807114637 (5) Benzodiazepine dependence ICD Codes: F13.20 - Sedative, hypnotic or anxiolytic dependence, uncomplicated SNOMED: 041048278 (6) Hypoalbuminemia ICD Codes: E88.09 - Other disorders of plasma-protein metabolism, not elsewhere classified SNOMED: 474214154 Status: progressing Assessment/Plan sepsis copd exacerbation improving acute renal failure is improving still more lethargic than baseline hypercapnic respiratory failure Subjective ROS Limited/Unobtainable: Yes Allergies: Coded Allergies: No Known Allergies (Unverified , 05/22/18) Subjective lehtargic sob Objective Last 24 Hour Vital Signs Date Time Temp Pulse Resp B/P (MAP) Pulse Ox O2 Delivery O2 Flow Rate FiO2 06/08/18 12:00 97.8 93 19 140/79 (99) 97 06/08/18 09:00 Nasal Cannula 3.0 06/08/18 08:24 82 18 99 Nasal Cannula 2.0 28 06/08/18 08:05 97 Nasal Cannula 2.0 28 06/08/18 08:05 Nasal Cannula 2.0 28 06/08/18 08:03 88 16 97 Nasal Cannula 2.0 28 06/08/18 08:00 98.3 86 18 139/77 (97) 93 06/08/18 04:00 97.7 71 18 133/79 (97) 97 06/08/18 01:21 79 18 98 Nasal Cannula 2.0 28 06/08/18 01:11 77 16 96 Nasal Cannula 2.0 28 06/08/18 00:00 97.2 74 18 138/80 (99) 95 06/07/18 21:00 Nasal Cannula 2.0 06/07/18 20:00 97.0 78 18 136/70 (92) 95 06/07/18 19:38 85 16 96 Nasal Cannula 2.0 28 06/07/18 19:30 91 16 Nasal Cannula 2.0 28 06/07/18 19:30 Nasal Cannula 2.0 28 06/07/18 19:30 79 16 95 Nasal Cannula 2.0 28 06/07/18 19:30 95 Nasal Cannula 2.0 28 06/07/18 16:00 97.9 87 20 124/79 (94) 93 06/07/18 13:53 94 16 Nasal Cannula 2.0 28 06/07/18 13:41 75 16 95 Nasal Cannula 2.0 28 Intake and Output 06/07/18 06/08/18 19:00 07:00 Intake Total 705 ml 350 ml Output Total 500 ml Balance 205 ml 350 ml Intake Oral 480 ml Free Water 120 ml IV Total 50 ml 350 ml Tube Feeding 55 ml Output Urine Total 500 ml # Voids 5 Height (Feet): 5 Height (Inches): 5.00 Weight (Pounds): 172 Neck: supple Cardiovascular: regular rhythm Respiratory/Chest: lungs clear Abdomen: soft Margot Dutta MD Jun 08, 2018 12:34
--- NOTE | 2018-06-08 13:22 | General Progress Note ---
Assessment/Plan Problem List: (1) Schizoaffective disorder ICD Codes: F25.9 - Schizoaffective disorder, unspecified SNOMED: 33627307 (2) Acute metabolic encephalopathy ICD Codes: G93.41 - Metabolic encephalopathy SNOMED: 84868891, 632047178 Status: stable Assessment/Plan prozac 40mg po qam zyprexa 15mg po qhs provided ro/st the pt has capacity to sign consent forms Subjective Neurologic/Psychiatric: Reports: anxiety, depressed, emotional problems Allergies: Coded Allergies: No Known Allergies (Unverified , 05/22/18) Subjective the pt is alert the pt is doing better the pt is still depressed the pt is not suicidal Objective Last 24 Hour Vital Signs Date Time Temp Pulse Resp B/P (MAP) Pulse Ox O2 Delivery O2 Flow Rate FiO2 06/08/18 12:00 97.8 93 19 140/79 (99) 97 06/08/18 09:00 Nasal Cannula 3.0 06/08/18 08:24 82 18 99 Nasal Cannula 2.0 28 06/08/18 08:05 97 Nasal Cannula 2.0 28 06/08/18 08:05 Nasal Cannula 2.0 28 06/08/18 08:03 88 16 97 Nasal Cannula 2.0 28 06/08/18 08:00 98.3 86 18 139/77 (97) 93 06/08/18 04:00 97.7 71 18 133/79 (97) 97 06/08/18 01:21 79 18 98 Nasal Cannula 2.0 28 06/08/18 01:11 77 16 96 Nasal Cannula 2.0 28 06/08/18 00:00 97.2 74 18 138/80 (99) 95 06/07/18 21:00 Nasal Cannula 2.0 06/07/18 20:00 97.0 78 18 136/70 (92) 95 06/07/18 19:38 85 16 96 Nasal Cannula 2.0 28 06/07/18 19:30 91 16 Nasal Cannula 2.0 28 06/07/18 19:30 Nasal Cannula 2.0 28 06/07/18 19:30 79 16 95 Nasal Cannula 2.0 28 06/07/18 19:30 95 Nasal Cannula 2.0 28 06/07/18 16:00 97.9 87 20 124/79 (94) 93 06/07/18 13:53 94 16 Nasal Cannula 2.0 28 06/07/18 13:41 75 16 95 Nasal Cannula 2.0 28 Intake and Output 06/07/18 06/08/18 19:00 07:00 Intake Total 705 ml 350 ml Output Total 500 ml Balance 205 ml 350 ml Intake Oral 480 ml Free Water 120 ml IV Total 50 ml 350 ml Tube Feeding 55 ml Output Urine Total 500 ml # Voids 5 Height (Feet): 5 Height (Inches): 5.00 Weight (Pounds): 172 General Appearance: no apparent distress, alert Neurologic: alert, oriented x 3, responsive, depressed affect Reagan Marshall MD Jun 08, 2018 13:22
--- NOTE | 2018-06-08 14:33 | Infectious Diseases Prog Note ---
Assessment/Plan Assessment/Plan A; Chronic obstructive pulmonary disease exacerbation, leukocytosis; improving schizoaffective disorder, hypothyroidism, hyperlipidemia, hypertension. Positive blood culture with CoANS P: Observe off antibiotic F/U CBC Subjective ROS Limited/Unobtainable: No Constitutional: Reports: no symptoms Respiratory: Reports: no symptoms Cardiovascular: Reports: no symptoms Gastrointestinal/Abdominal: Reports: no symptoms Genitourinary: Reports: no symptoms Allergies: Coded Allergies: No Known Allergies (Unverified , 05/22/18) Objective Vital Signs Last 24 Hour Vital Signs Date Time Temp Pulse Resp B/P (MAP) Pulse Ox O2 Delivery O2 Flow Rate FiO2 06/08/18 12:00 97.8 93 19 140/79 (99) 97 06/08/18 09:00 Nasal Cannula 3.0 06/08/18 08:24 82 18 99 Nasal Cannula 2.0 28 06/08/18 08:05 97 Nasal Cannula 2.0 28 06/08/18 08:05 Nasal Cannula 2.0 28 06/08/18 08:03 88 16 97 Nasal Cannula 2.0 28 06/08/18 08:00 98.3 86 18 139/77 (97) 93 06/08/18 04:00 97.7 71 18 133/79 (97) 97 06/08/18 01:21 79 18 98 Nasal Cannula 2.0 28 06/08/18 01:11 77 16 96 Nasal Cannula 2.0 28 06/08/18 00:00 97.2 74 18 138/80 (99) 95 06/07/18 21:00 Nasal Cannula 2.0 06/07/18 20:00 97.0 78 18 136/70 (92) 95 06/07/18 19:38 85 16 96 Nasal Cannula 2.0 28 06/07/18 19:30 91 16 Nasal Cannula 2.0 28 06/07/18 19:30 Nasal Cannula 2.0 28 06/07/18 19:30 79 16 95 Nasal Cannula 2.0 28 06/07/18 19:30 95 Nasal Cannula 2.0 28 06/07/18 16:00 97.9 87 20 124/79 (94) 93 Height (Feet): 5 Height (Inches): 5.00 Weight (Pounds): 172 HEENT: mucous membranes moist Respiratory/Chest: lungs clear Cardiovascular: normal rate Abdomen: soft, non tender Extremities: no edema Neurologic/Psychiatric: alert, responsive Current Medications Medications (Trade) Dose Ordered Sig/Salty Route PRN Reason Start Time Stop Time Status Last Admin Dose Admin Acetaminophen (Tylenol) 500 mg Q4H PRN NG Mild Pain/Temp > 100.5 06/05/18 17:15 06/22/18 13:08 06/06/18 01:03 Acetylcysteine (Mucomyst) 100 mg TIDRT HHN 06/05/18 19:00 06/24/18 12:59 06/08/18 13:18 Dextrose 1,000 ml @ 50 mls/hr Q20H IV 06/05/18 16:45 07/02/18 17:55 06/08/18 03:49 Fluoxetine HCl (PROzac) 40 mg DAILY NG 06/09/18 09:00 07/09/18 08:59 Heparin Sodium (Porcine) (Heparin 5000 units/ml) 5,000 units EVERY 12 HOURS SUBQ 06/05/18 21:00 06/21/18 20:59 06/08/18 08:29 Olanzapine (ZyPREXA) 15 mg BEDTIME NG 06/05/18 21:00 06/28/18 20:59 06/07/18 20:46 Migel Cohen MD Jun 08, 2018 14:33
[2018-06-08 16:00] VITALS: BP 130/77
--- NOTE | 2018-06-08 16:00 | General Progress Note ---
Assessment/Plan Assessment/Plan (1) S/p fall (2) COPD Exacerbation (3) OA Patient to be continued on Tylenol D/w Dr. Garcia and he concurred. Subjective Date patient seen: Jun 08, 2018 Time patient seen: 03:00 - pm Constitutional: Reports: weakness HEENT: Reports: no symptoms Cardiovascular: Reports: no symptoms Respiratory: Reports: no symptoms Gastrointestinal/Abdominal: Reports: no symptoms Genitourinary: Reports: no symptoms Neurologic/Psychiatric: Reports: weakness Endocrine: Reports: no symptoms Allergies: Coded Allergies: No Known Allergies (Unverified , 05/22/18) Subjective Patient is in bed no signs of pain or distress. Objective Last 24 Hour Vital Signs Date Time Temp Pulse Resp B/P (MAP) Pulse Ox O2 Delivery O2 Flow Rate FiO2 06/08/18 13:23 81 18 99 Nasal Cannula 2.0 28 06/08/18 13:18 79 18 96 Nasal Cannula 2.0 28 06/08/18 12:00 97.8 93 19 140/79 (99) 97 06/08/18 09:00 Nasal Cannula 3.0 06/08/18 08:24 82 18 99 Nasal Cannula 2.0 28 06/08/18 08:05 97 Nasal Cannula 2.0 28 06/08/18 08:05 Nasal Cannula 2.0 28 06/08/18 08:03 88 16 97 Nasal Cannula 2.0 28 06/08/18 08:00 98.3 86 18 139/77 (97) 93 06/08/18 04:00 97.7 71 18 133/79 (97) 97 06/08/18 01:21 79 18 98 Nasal Cannula 2.0 28 06/08/18 01:11 77 16 96 Nasal Cannula 2.0 28 06/08/18 00:00 97.2 74 18 138/80 (99) 95 06/07/18 21:00 Nasal Cannula 2.0 06/07/18 20:00 97.0 78 18 136/70 (92) 95 06/07/18 19:38 85 16 96 Nasal Cannula 2.0 28 06/07/18 19:30 91 16 Nasal Cannula 2.0 28 06/07/18 19:30 Nasal Cannula 2.0 28 06/07/18 19:30 79 16 95 Nasal Cannula 2.0 28 06/07/18 19:30 95 Nasal Cannula 2.0 28 06/07/18 16:00 97.9 87 20 124/79 (94) 93 Intake and Output 06/07/18 06/08/18 19:00 07:00 Intake Total 705 ml 350 ml Output Total 500 ml Balance 205 ml 350 ml Intake Oral 480 ml Free Water 120 ml IV Total 50 ml 350 ml Tube Feeding 55 ml Output Urine Total 500 ml # Voids 5 Height (Feet): 5 Height (Inches): 5.00 Weight (Pounds): 172 Objective Neck: non-tender, supple Cardiovascular: normal rate, regular rhythm Respiratory/Chest: decreased breath sounds Abdomen: non tender, soft Extremities: non-tender Edema: trace edema Skin: warm/dry Anjum Dumont Jun 08, 2018 16:00
--- NOTE | 2018-06-08 17:11 | Nephrology Progress Note ---
Assessment/Plan Problem List: (1) Proteinuria (2) Hypoalbuminemia (3) COPD exacerbation (4) Schizoaffective disorder (5) Azotemia Assessment rising BUN and Hgb resolved admitted with exacerbation COPD and Hypoxia High WBCs : UTI , Pneumonia Proteinuria and HypoAlbuminemia Plan down on D5w rate Pulmonary support BIPAP as needed Antibiotics 24 h urine proteins CAN NOT BE COLLECTED UNLESS FOLEY_ WILL DEFER 2D echo Left ventricular ejection fraction grossly estimated to be 65 %. optimize cardiac status Subjective ROS Limited/Unobtainable: No Objective Objective Last 24 Hour Vital Signs Date Time Temp Pulse Resp B/P (MAP) Pulse Ox O2 Delivery O2 Flow Rate FiO2 06/08/18 13:23 81 18 99 Nasal Cannula 2.0 28 06/08/18 13:18 79 18 96 Nasal Cannula 2.0 28 06/08/18 12:00 97.8 93 19 140/79 (99) 97 06/08/18 09:00 Nasal Cannula 3.0 06/08/18 08:24 82 18 99 Nasal Cannula 2.0 28 06/08/18 08:05 97 Nasal Cannula 2.0 28 06/08/18 08:05 Nasal Cannula 2.0 28 06/08/18 08:03 88 16 97 Nasal Cannula 2.0 28 06/08/18 08:00 98.3 86 18 139/77 (97) 93 06/08/18 04:00 97.7 71 18 133/79 (97) 97 06/08/18 01:21 79 18 98 Nasal Cannula 2.0 28 06/08/18 01:11 77 16 96 Nasal Cannula 2.0 28 06/08/18 00:00 97.2 74 18 138/80 (99) 95 06/07/18 21:00 Nasal Cannula 2.0 06/07/18 20:00 97.0 78 18 136/70 (92) 95 06/07/18 19:38 85 16 96 Nasal Cannula 2.0 28 06/07/18 19:30 91 16 Nasal Cannula 2.0 28 06/07/18 19:30 Nasal Cannula 2.0 28 06/07/18 19:30 79 16 95 Nasal Cannula 2.0 28 06/07/18 19:30 95 Nasal Cannula 2.0 28 Intake and Output 06/07/18 06/08/18 19:00 07:00 Intake Total 705 ml 350 ml Output Total 500 ml Balance 205 ml 350 ml Intake Oral 480 ml Free Water 120 ml IV Total 50 ml 350 ml Tube Feeding 55 ml Output Urine Total 500 ml # Voids 5 Height (Feet): 5 Height (Inches): 5.00 Weight (Pounds): 172 General Appearance: no apparent distress Objective no change Seamus Morfin MD Jun 08, 2018 17:11
--- NOTE | 2018-06-08 17:40 | NUR ---
NURSE NOTES: Notified Dr. Dutta blood sugar 152, no sliding scale ordered. asked about continuing blood sugar checks not that pt is eating on her own and no NGT feeds.
--- NOTE | 2018-06-08 18:05 | Cardiac Electrophysiology PN ---
Assessment/Plan Assessment/Plan 1. Respiratory failure due to COPD. On NC and Abx per Dr. Membreno Ruled out for MA. EF 65%. No Significant CHF. 2. Elevated white count, likely pneumonia Antibiotic per Dr. Cohen. 3. History of psychosis. 4. Sinus tach due to PNA. No fib DW RN Subjective Subjective In SR on nasal cannula on NMB and Abx. Objective Last 24 Hour Vital Signs Date Time Temp Pulse Resp B/P (MAP) Pulse Ox O2 Delivery O2 Flow Rate FiO2 06/08/18 16:00 98.4 87 18 130/77 (94) 96 06/08/18 13:23 81 18 99 Nasal Cannula 2.0 28 06/08/18 13:18 79 18 96 Nasal Cannula 2.0 28 06/08/18 12:00 97.8 93 19 140/79 (99) 97 06/08/18 09:00 Nasal Cannula 3.0 06/08/18 08:24 82 18 99 Nasal Cannula 2.0 28 06/08/18 08:05 97 Nasal Cannula 2.0 28 06/08/18 08:05 Nasal Cannula 2.0 28 06/08/18 08:03 88 16 97 Nasal Cannula 2.0 28 06/08/18 08:00 98.3 86 18 139/77 (97) 93 06/08/18 04:00 97.7 71 18 133/79 (97) 97 06/08/18 01:21 79 18 98 Nasal Cannula 2.0 28 06/08/18 01:11 77 16 96 Nasal Cannula 2.0 28 06/08/18 00:00 97.2 74 18 138/80 (99) 95 06/07/18 21:00 Nasal Cannula 2.0 06/07/18 20:00 97.0 78 18 136/70 (92) 95 06/07/18 19:38 85 16 96 Nasal Cannula 2.0 28 06/07/18 19:30 91 16 Nasal Cannula 2.0 28 06/07/18 19:30 Nasal Cannula 2.0 28 06/07/18 19:30 79 16 95 Nasal Cannula 2.0 28 06/07/18 19:30 95 Nasal Cannula 2.0 28 Intake and Output 06/07/18 06/08/18 19:00 07:00 Intake Total 705 ml 350 ml Output Total 500 ml Balance 205 ml 350 ml Intake Oral 480 ml Free Water 120 ml IV Total 50 ml 350 ml Tube Feeding 55 ml Output Urine Total 500 ml # Voids 5 Objective HEAD AND NECK: No JVD on N/C LUNGS: Coarse rhonchi. CARDIOVASCULAR: Regular S1 and S2 no M/G/R ABDOMEN: Soft. EXTREMITIES: No pitting edema. Zane Ocampo MD Jun 08, 2018 18:05
--- NOTE | 2018-06-08 19:29 | NUR ---
HAND-OFF: Report given to RAUL Gomez.
--- NOTE | 2018-06-08 19:30 | NUR ---
NURSE NOTES: RECEIVED PATIENT LYING IN BED, AWAKE, ALERT/ORIENTED X3, VERBALLY RESPONSIVE, DENIES PAIN. NO SIGNS AND SYMPTOMS OF ACUTE CARDIO RESPIRATORY DISTRESS/SHORTNESS OF BREATH, DENIES CHEST PAIN, NO PERIPHERAL EDEMA NOTED. INCONTINENT OF BOWEL/BLADDER, PASSING GAS. NOTED WITH SACRAL REDNESS,REPOSITIONED FOR COMFORT/PRESSURE RELIEF, TOLERATED WELL. SIDE RAILS UP X3/BED IN LOWEST POSITION FOR SAFETY. CALL LIGHT WITHIN REACH. NAD.
[2018-06-08 20:00] VITALS: BP 104/78
[2018-06-08] MEDS: NovoLOG Insulin Flexpen SUBQ SCH (21:00)
--- NOTE | 2018-06-08 21:51 | Pulmonology Progress Note ---
Assessment/Plan Problems: (1) COPD exacerbation (2) Hypercapnic respiratory failure, chronic (3) Hypoxia (4) Benzodiazepine dependence (5) Hypercarbia (6) Schizoaffective disorder Assessment/Plan ASSESSMENT: The patient is a 67-year-old female smoker with history of chronic obstructive pulmonary disease, assisted living resident, hypertension, hyperlipidemia, hypothyroidism, presenting after a fall, respiratory distress, likely exacerbation of chronic obstructive pulmonary disease and urinary tract infection. PROBLEM LIST: 1. Acute on chronic hypercapnic respiratory failure. 2. Chronic obstructive pulmonary disease with acute exacerbation. 3. Urinary tract infection (alpha hemolytic strep) 4. CoNS in blood likely contaminant 5. Leukocytosis secondary to above and steroids 6. Questionable fall. 7. History of psychiatric disorder. 8. Hypertension, hyperlipidemia, hypothyroidism. 9. Mild elevation of D-dimer. 10. Erythrocytosis & likely hemoconcentration 11. Elevated BUN TREATMENT PLAN: 1. Optimize pulmonary hygiene/mobilize as tolerated. 2. BiPAP 12/5 qHS and PRN - ENCOURAGE NOCTURNAL USE 3. Titrate FiO2 to keep saturations greater than 90% 4. RTC and PRN DuoNeb 5. OBSERVE OFF STEROIDS 6. Observe off Abx per ID 7. Aspiration precautions 8. Monitor volumes and renal function, consider D/C IVF now that taking adequate POP 9. DVT prophylaxis with heparin subcutaneous. 10. F/U neuro & psych recs, monitor MS, minimize sedative 11. The patient should have outpatient workup including pulmonary function tests Subjective Allergies: Coded Allergies: No Known Allergies (Unverified , 05/22/18) Subjective AFVSS O2 needs stable No cough less SOB no wheezing no CP no FC Objective Last 24 Hour Vital Signs Date Time Temp Pulse Resp B/P (MAP) Pulse Ox O2 Delivery O2 Flow Rate FiO2 06/08/18 21:02 80 20 99 Nasal Cannula 2.0 28 06/08/18 20:46 Nasal Cannula 2.0 28 06/08/18 20:46 82 20 96 Nasal Cannula 2.0 28 06/08/18 20:46 95 Nasal Cannula 2.0 28 06/08/18 16:00 98.4 87 18 130/77 (94) 96 06/08/18 13:23 81 18 99 Nasal Cannula 2.0 28 06/08/18 13:18 79 18 96 Nasal Cannula 2.0 28 06/08/18 12:00 97.8 93 19 140/79 (99) 97 06/08/18 09:00 Nasal Cannula 3.0 06/08/18 08:24 82 18 99 Nasal Cannula 2.0 28 06/08/18 08:05 97 Nasal Cannula 2.0 28 06/08/18 08:05 Nasal Cannula 2.0 28 06/08/18 08:03 88 16 97 Nasal Cannula 2.0 28 06/08/18 08:00 98.3 86 18 139/77 (97) 93 06/08/18 04:00 97.7 71 18 133/79 (97) 97 06/08/18 01:21 79 18 98 Nasal Cannula 2.0 28 06/08/18 01:11 77 16 96 Nasal Cannula 2.0 28 06/08/18 00:00 97.2 74 18 138/80 (99) 95 Intake and Output 06/07/18 06/08/18 19:00 07:00 Intake Total 705 ml 350 ml Output Total 500 ml Balance 205 ml 350 ml Intake Oral 480 ml Free Water 120 ml IV Total 50 ml 350 ml Tube Feeding 55 ml Output Urine Total 500 ml # Voids 5 General Appearance: WD/WN, no acute distress HEENT: normocephalic, atraumatic, anicteric, mucous membranes moist Respiratory/Chest: chest wall non-tender, lungs clear - but distant, normal breath sounds, no respiratory distress, no accessory muscle use Cardiovascular: normal peripheral pulses, normal rate, regular rhythm Abdomen: normal bowel sounds, soft, non tender, no organomegaly, non distended , no mass Extremities: no cyanosis, no clubbing, no edema Current Medications Medications (Trade) Dose Ordered Sig/Salty Route PRN Reason Start Time Stop Time Status Last Admin Dose Admin Acetaminophen (Tylenol) 500 mg Q4H PRN NG Mild Pain/Temp > 100.5 06/05/18 17:15 06/22/18 13:08 06/06/18 01:03 Acetylcysteine (Mucomyst) 100 mg TIDRT N 06/05/18 19:00 06/24/18 12:59 06/08/18 20:47 Albuterol/ Ipratropium (Albuterol/ Ipratropium) 3 ml Q6HRT N 06/08/18 19:30 06/13/18 19:29 06/08/18 20:47 Dextrose 1,000 ml @ 50 mls/hr Q20H IV 06/05/18 16:45 07/02/18 17:55 06/08/18 03:49 Dextrose (Dextrose 50%) 25 ml Q30M PRN IV Hypoglycemia 06/08/18 18:15 07/08/18 18:14 Dextrose (Dextrose 50%) 50 ml Q30M PRN IV Hypoglycemia 06/08/18 18:15 07/08/18 18:14 Fluoxetine HCl (PROzac) 40 mg DAILY NG 06/09/18 09:00 07/09/18 08:59 Heparin Sodium (Porcine) (Heparin 5000 units/ml) 5,000 units EVERY 12 HOURS SUBQ 06/05/18 21:00 06/21/18 20:59 06/08/18 08:29 Insulin Aspart (NovoLOG) BEFORE MEALS AND HS SUBQ 06/08/18 21:00 07/08/18 20:59 Olanzapine (ZyPREXA) 15 mg BEDTIME NG 06/05/18 21:00 06/28/18 20:59 06/07/18 20:46 Rory Membreno MD Jun 08, 2018 21:50
[2018-06-09] VITALS: BP 132/67
--- NOTE | 2018-06-09 01:00 | NUR ---
NURSE NOTES: PATIENT REFUSED BIPAP X2-
[2018-06-09] MEDS: Albuterol/Ipratropium 3ml neb HHN SCH ×4 (01:27→19:32)
[2018-06-09 04:00] VITALS: BP 146/76
[2018-06-09] MEDS: NovoLOG Insulin Flexpen SUBQ SCH ×4 (06:50→21:00)
[2018-06-09 07:10] LABS: BASOPHILS % (AUTO) 0.7 % (0.0-2.0); HEMATOCRIT 44.5 % (37.0-47.0); HEMOGLOBIN 15.5 G/DL (12.0-16.0); LYMPHOCYTES % (AUTO) 16.1 % (20.0-45.0); MEAN CORPUSCULAR VOLUME 91 FL (80-99); MONOCYTES % (AUTO) 7.5 % (1.0-10.0); NEUTROPHILS % (AUTO) 74.7 % (45.0-75.0); PLATELET COUNT 232 K/UL (150-450); RED BLOOD COUNT 4.88 M/UL (4.20-5.40); RED CELL DISTRIBUTION WIDTH 11.5 % (11.6-14.8); WHITE BLOOD COUNT 11.9 K/UL (4.8-10.8)
--- NOTE | 2018-06-09 07:31 | NUR ---
NURSE NOTES: Received pt with stable condition. pt in bed with no sob nor in any form of distress noted. Breathing regular and unlabored. denies any pain at this time. will continue to monitor
[2018-06-09 08:00] VITALS: BP 138/77
[2018-06-09 08:05] LABS: ANION GAP 6 mmol/L (5-15); BLOOD UREA NITROGEN 15 mg/dL (7-18); CALCIUM 9.3 MG/DL (8.5-10.1); CARBON DIOXIDE 27 MMOL/L (21-32); CHLORIDE 104 MMOL/L (98-107); CREATININE 0.7 MG/DL (0.55-1.30); POTASSIUM 4.1 MMOL/L (3.5-5.1); SODIUM 137 MMOL/L (136-145)
[2018-06-09] MEDS: Heparin 5000 units/ml inj SUBQ SCH ×2 (08:19→21:35)
--- NOTE | 2018-06-09 08:50 | General Progress Note ---
Assessment/Plan Assessment/Plan (1) S/p fall (2) COPD Exacerbation (3) OA Patient to be continued on Tylenol D/w Dr. Garcia and he concurred. Subjective Date patient seen: Jun 09, 2018 Time patient seen: 07:00 - am Constitutional: Reports: weakness Neurologic/Psychiatric: Reports: weakness Allergies: Coded Allergies: No Known Allergies (Unverified , 05/22/18) Subjective She is doing well and reports that there is no pain at this time and is showing no signs of pain or distress at this time. Objective Last 24 Hour Vital Signs Date Time Temp Pulse Resp B/P (MAP) Pulse Ox O2 Delivery O2 Flow Rate FiO2 06/09/18 08:00 97.9 86 20 138/77 (97) 93 06/09/18 04:00 98.2 88 20 146/76 (99) 93 06/09/18 01:37 86 20 99 Nasal Cannula 2.0 28 06/09/18 01:27 83 20 96 Nasal Cannula 2.0 28 06/09/18 00:55 Nasal Cannula 2.0 28 06/09/18 00:55 96 Nasal Cannula 2.0 28 06/09/18 00:00 97.6 80 20 132/67 (88) 93 06/08/18 21:02 80 20 99 Nasal Cannula 2.0 28 06/08/18 21:00 Nasal Cannula 2.0 06/08/18 20:46 Nasal Cannula 2.0 28 06/08/18 20:46 82 20 96 Nasal Cannula 2.0 28 06/08/18 20:46 95 Nasal Cannula 2.0 28 06/08/18 20:00 98.7 91 16 104/78 (87) 96 06/08/18 16:00 98.4 87 18 130/77 (94) 96 06/08/18 13:23 81 18 99 Nasal Cannula 2.0 28 06/08/18 13:18 79 18 96 Nasal Cannula 2.0 28 06/08/18 12:00 97.8 93 19 140/79 (99) 97 06/08/18 09:00 Nasal Cannula 3.0 Intake and Output 06/08/18 06/09/18 18:59 06:59 Intake Total 480 ml 360 ml Balance 480 ml 360 ml Intake Oral 480 ml 360 ml # Voids 4 3 # Bowel Movements 1 Laboratory Tests 06/09/18 06:10: White Blood Count 11.9H, Red Blood Count 4.88, Hemoglobin 15.5, Hematocrit 44.5 , Mean Corpuscular Volume 91, Mean Corpuscular Hemoglobin 31.7H, Mean Corpuscular Hemoglobin Concent 34.7, Red Cell Distribution Width 11.5L, Platelet Count 232, Mean Platelet Volume 6.8, Neutrophils (%) (Auto) 74.7, Lymphocytes (%) (Auto) 16.1L, Monocytes (%) (Auto) 7.5, Eosinophils (%) (Auto) 1.0, Basophils (%) (Auto) 0.7, Sodium Level 137, Potassium Level 4.1, Chloride Level 104, Carbon Dioxide Level 27, Anion Gap 6, Blood Urea Nitrogen 15, Creatinine 0.7, Estimat Glomerular Filtration Rate > 60, Glucose Level 101, Calcium Level 9.3 Height (Feet): 5 Height (Inches): 5.00 Weight (Pounds): 172 Objective Neck: non-tender, supple Cardiovascular: normal rate, regular rhythm Respiratory/Chest: decreased breath sounds Abdomen: non tender, soft Extremities: non-tender Edema: trace edema Skin: warm/dry Anjum Dumont Jun 09, 2018 08:50
--- NOTE | 2018-06-09 09:13 | Pulmonology Progress Note ---
Assessment/Plan Problems: (1) COPD exacerbation (2) Hypercapnic respiratory failure, chronic (3) Hypoxia (4) Benzodiazepine dependence (5) Hypercarbia (6) Schizoaffective disorder Assessment/Plan ASSESSMENT: The patient is a 67-year-old female smoker with history of chronic obstructive pulmonary disease, assisted living resident, hypertension, hyperlipidemia, hypothyroidism, presenting after a fall, respiratory distress, likely exacerbation of chronic obstructive pulmonary disease and urinary tract infection. PROBLEM LIST: 1. Acute on chronic hypercapnic respiratory failure. 2. Chronic obstructive pulmonary disease with acute exacerbation. 3. Urinary tract infection (alpha hemolytic strep) 4. CoNS in blood likely contaminant 5. Leukocytosis secondary to above and steroids 6. Questionable fall. 7. History of psychiatric disorder. 8. Hypertension, hyperlipidemia, hypothyroidism. 9. Mild elevation of D-dimer. 10. Erythrocytosis & likely hemoconcentration 11. Elevated BUN TREATMENT PLAN: 1. Optimize pulmonary hygiene/mobilize as tolerated. 2. BiPAP 12/5 qHS and PRN - ENCOURAGE NOCTURNAL USE 3. Titrate FiO2 to keep saturations greater than 90% 4. RTC and PRN DuoNeb 5. OBSERVE OFF STEROIDS 6. Observe off Abx per ID 7. Aspiration precautions 8. Monitor volumes and renal function, consider D/C IVF now that taking adequate POP 9. DVT prophylaxis with heparin subcutaneous. 10. F/U neuro & psych recs, monitor MS, minimize sedative 11. The patient should have outpatient workup including pulmonary function tests Subjective Allergies: Coded Allergies: No Known Allergies (Unverified , 05/22/18) Subjective AFVSS O2 needs stable No cough less SOB no wheezing no CP no FC Objective Last 24 Hour Vital Signs Date Time Temp Pulse Resp B/P (MAP) Pulse Ox O2 Delivery O2 Flow Rate FiO2 06/09/18 08:00 97.9 86 20 138/77 (97) 93 06/09/18 04:00 98.2 88 20 146/76 (99) 93 06/09/18 01:37 86 20 99 Nasal Cannula 2.0 28 06/09/18 01:27 83 20 96 Nasal Cannula 2.0 28 06/09/18 00:55 Nasal Cannula 2.0 28 06/09/18 00:55 96 Nasal Cannula 2.0 28 06/09/18 00:00 97.6 80 20 132/67 (88) 93 06/08/18 21:02 80 20 99 Nasal Cannula 2.0 28 06/08/18 21:00 Nasal Cannula 2.0 06/08/18 20:46 Nasal Cannula 2.0 28 06/08/18 20:46 82 20 96 Nasal Cannula 2.0 28 06/08/18 20:46 95 Nasal Cannula 2.0 28 06/08/18 20:00 98.7 91 16 104/78 (87) 96 06/08/18 16:00 98.4 87 18 130/77 (94) 96 06/08/18 13:23 81 18 99 Nasal Cannula 2.0 28 06/08/18 13:18 79 18 96 Nasal Cannula 2.0 28 06/08/18 12:00 97.8 93 19 140/79 (99) 97 Intake and Output 06/08/18 06/09/18 18:59 06:59 Intake Total 480 ml 360 ml Balance 480 ml 360 ml Intake Oral 480 ml 360 ml # Voids 4 3 # Bowel Movements 1 General Appearance: WD/WN, no acute distress HEENT: normocephalic, atraumatic, anicteric, mucous membranes moist Respiratory/Chest: chest wall non-tender, lungs clear - but distant, normal breath sounds, no respiratory distress, no accessory muscle use Cardiovascular: normal peripheral pulses, normal rate, regular rhythm Abdomen: normal bowel sounds, soft, non tender, no organomegaly, non distended , no mass Extremities: no cyanosis, no clubbing, no edema Laboratory Tests 06/09/18 06:10: White Blood Count 11.9H, Red Blood Count 4.88, Hemoglobin 15.5, Hematocrit 44.5 , Mean Corpuscular Volume 91, Mean Corpuscular Hemoglobin 31.7H, Mean Corpuscular Hemoglobin Concent 34.7, Red Cell Distribution Width 11.5L, Platelet Count 232, Mean Platelet Volume 6.8, Neutrophils (%) (Auto) 74.7, Lymphocytes (%) (Auto) 16.1L, Monocytes (%) (Auto) 7.5, Eosinophils (%) (Auto) 1.0, Basophils (%) (Auto) 0.7, Sodium Level 137, Potassium Level 4.1, Chloride Level 104, Carbon Dioxide Level 27, Anion Gap 6, Blood Urea Nitrogen 15, Creatinine 0.7, Estimat Glomerular Filtration Rate > 60, Glucose Level 101, Calcium Level 9.3 Current Medications Medications (Trade) Dose Ordered Sig/Salty Route PRN Reason Start Time Stop Time Status Last Admin Dose Admin Acetaminophen (Tylenol) 500 mg Q4H PRN NG Mild Pain/Temp > 100.5 06/05/18 17:15 06/22/18 13:08 06/06/18 01:03 Albuterol/ Ipratropium (Albuterol/ Ipratropium) 3 ml Q6HRT HHN 06/08/18 19:30 06/13/18 19:29 06/09/18 01:27 Dextrose 1,000 ml @ 50 mls/hr Q20H IV 06/05/18 16:45 07/02/18 17:55 06/09/18 00:45 Dextrose (Dextrose 50%) 25 ml Q30M PRN IV Hypoglycemia 06/08/18 18:15 07/08/18 18:14 Dextrose (Dextrose 50%) 50 ml Q30M PRN IV Hypoglycemia 06/08/18 18:15 07/08/18 18:14 Fluoxetine HCl (PROzac) 40 mg DAILY NG 06/09/18 09:00 07/09/18 08:59 06/09/18 08:15 Heparin Sodium (Porcine) (Heparin 5000 units/ml) 5,000 units EVERY 12 HOURS SUBQ 06/05/18 21:00 06/21/18 20:59 06/09/18 08:19 Insulin Aspart (NovoLOG) BEFORE MEALS AND HS SUBQ 06/08/18 21:00 07/08/18 20:59 06/09/18 06:50 Olanzapine (ZyPREXA) 15 mg BEDTIME NG 06/05/18 21:00 06/28/18 20:59 06/08/18 22:05 Rory Membreno MD Jun 09, 2018 09:13
--- NOTE | 2018-06-09 11:20 | GI Progress Note ---
Assessment/Plan Problems: (1) Dysphasia ICD Codes: R47.02 - Dysphasia SNOMED: 72558680 (2) Acute metabolic encephalopathy ICD Codes: G93.41 - Metabolic encephalopathy SNOMED: 93838299, 604714742 (3) COPD exacerbation ICD Codes: J44.1 - Chronic obstructive pulmonary disease with (acute) exacerbation SNOMED: 889142455 (4) Schizoaffective disorder ICD Codes: F25.9 - Schizoaffective disorder, unspecified SNOMED: 73578888 (5) Hypoxia ICD Codes: R09.02 - Hypoxemia SNOMED: 859913215 (6) Hypoalbuminemia ICD Codes: E88.09 - Other disorders of plasma-protein metabolism, not elsewhere classified SNOMED: 097849860 Status: unchanged Status Narrative Discussed with Dr. Acosta Assessment/Plan Speech therapy recommendations noted, passed. No PEG necessary, patient tolerating diet over 50-75% pulmonary care Supportive care Push p.o. Strict aspiration precautions PPI Follow labs Outpatient GI procedures The patient was seen and examined at bedside and all new and available data was reviewed in the patients chart. I agree with the above findings, impression and plan. (Patient seen earlier today. Signature stamp does not reflect patient encounter time.). - Jairon Acosta MD Subjective Subjective Pulmonary congestion Objective Last 24 Hour Vital Signs Date Time Temp Pulse Resp B/P (MAP) Pulse Ox O2 Delivery O2 Flow Rate FiO2 06/09/18 09:33 Nasal Cannula 2.0 06/09/18 08:00 97.9 86 20 138/77 (97) 93 06/09/18 04:00 98.2 88 20 146/76 (99) 93 06/09/18 01:37 86 20 99 Nasal Cannula 2.0 28 06/09/18 01:27 83 20 96 Nasal Cannula 2.0 28 06/09/18 00:55 Nasal Cannula 2.0 28 06/09/18 00:55 96 Nasal Cannula 2.0 28 06/09/18 00:00 97.6 80 20 132/67 (88) 93 06/08/18 21:02 80 20 99 Nasal Cannula 2.0 28 06/08/18 21:00 Nasal Cannula 2.0 06/08/18 20:46 Nasal Cannula 2.0 28 06/08/18 20:46 82 20 96 Nasal Cannula 2.0 28 06/08/18 20:46 95 Nasal Cannula 2.0 28 06/08/18 20:00 98.7 91 16 104/78 (87) 96 06/08/18 16:00 98.4 87 18 130/77 (94) 96 06/08/18 13:23 81 18 99 Nasal Cannula 2.0 28 06/08/18 13:18 79 18 96 Nasal Cannula 2.0 28 06/08/18 12:00 97.8 93 19 140/79 (99) 97 Intake and Output 06/08/18 06/09/18 19:00 07:00 Intake Total 480 ml 360 ml Balance 480 ml 360 ml Intake Oral 480 ml 360 ml # Voids 4 3 # Bowel Movements 1 Laboratory Tests Test 06/09/18 06:10 White Blood Count 11.9 K/UL (4.8-10.8) H Red Blood Count 4.88 M/UL (4.20-5.40) Hemoglobin 15.5 G/DL (12.0-16.0) Hematocrit 44.5 % (37.0-47.0) Mean Corpuscular Volume 91 FL (80-99) Mean Corpuscular Hemoglobin 31.7 PG (27.0-31.0) H Mean Corpuscular Hemoglobin Concent 34.7 G/DL (32.0-36.0) Red Cell Distribution Width 11.5 % (11.6-14.8) L Platelet Count 232 K/UL (150-450) Mean Platelet Volume 6.8 FL (6.5-10.1) Neutrophils (%) (Auto) 74.7 % (45.0-75.0) Lymphocytes (%) (Auto) 16.1 % (20.0-45.0) L Monocytes (%) (Auto) 7.5 % (1.0-10.0) Eosinophils (%) (Auto) 1.0 % (0.0-3.0) Basophils (%) (Auto) 0.7 % (0.0-2.0) Sodium Level 137 MMOL/L (136-145) Potassium Level 4.1 MMOL/L (3.5-5.1) Chloride Level 104 MMOL/L (98-107) Carbon Dioxide Level 27 MMOL/L (21-32) Anion Gap 6 mmol/L (5-15) Blood Urea Nitrogen 15 mg/dL (7-18) Creatinine 0.7 MG/DL (0.55-1.30) Estimat Glomerular Filtration Rate > 60 mL/min (>60) Glucose Level 101 MG/DL (74-106) Calcium Level 9.3 MG/DL (8.5-10.1) Height (Feet): 5 Height (Inches): 5.00 Weight (Pounds): 172 General Appearance: WD/WN, no apparent distress, alert, obese Cardiovascular: normal rate Respiratory/Chest: normal breath sounds, no respiratory distress Abdominal Exam: normal bowel sounds, non tender, soft Extremities: normal range of motion, non-tender Jacqueline Corona NP Jun 09, 2018 11:20
[2018-06-09 12:00] VITALS: BP_SYST 122; BP_SYST 130; BP_DIAS 72; BP_DIAS 78
--- NOTE | 2018-06-09 12:34 | General Progress Note ---
Assessment/Plan Problem List: (1) Schizoaffective disorder ICD Codes: F25.9 - Schizoaffective disorder, unspecified SNOMED: 81740571 (2) Acute metabolic encephalopathy ICD Codes: G93.41 - Metabolic encephalopathy SNOMED: 20155328, 207395419 Status: stable Assessment/Plan prozac 40mg po qam zyprexa 15mg po qhs provided ro/st the pt has capacity to sign consent forms Subjective Neurologic/Psychiatric: Reports: anxiety, depressed, emotional problems Allergies: Coded Allergies: No Known Allergies (Unverified , 05/22/18) Subjective the pt is alert and oriented co depression and anxiety Objective Last 24 Hour Vital Signs Date Time Temp Pulse Resp B/P (MAP) Pulse Ox O2 Delivery O2 Flow Rate FiO2 06/09/18 11:44 97 Nasal Cannula 2.0 28 06/09/18 11:44 Nasal Cannula 2.0 28 06/09/18 11:05 Nasal Cannula 2.0 28 06/09/18 11:05 Nasal Cannula 2.0 28 06/09/18 09:33 Nasal Cannula 2.0 06/09/18 08:00 97.9 86 20 138/77 (97) 93 06/09/18 04:00 98.2 88 20 146/76 (99) 93 06/09/18 01:37 86 20 99 Nasal Cannula 2.0 28 06/09/18 01:27 83 20 96 Nasal Cannula 2.0 28 06/09/18 00:55 Nasal Cannula 2.0 28 06/09/18 00:55 96 Nasal Cannula 2.0 28 06/09/18 00:00 97.6 80 20 132/67 (88) 93 06/08/18 21:02 80 20 99 Nasal Cannula 2.0 28 06/08/18 21:00 Nasal Cannula 2.0 06/08/18 20:46 Nasal Cannula 2.0 28 06/08/18 20:46 82 20 96 Nasal Cannula 2.0 28 06/08/18 20:46 95 Nasal Cannula 2.0 28 06/08/18 20:00 98.7 91 16 104/78 (87) 96 06/08/18 16:00 98.4 87 18 130/77 (94) 96 06/08/18 13:23 81 18 99 Nasal Cannula 2.0 28 06/08/18 13:18 79 18 96 Nasal Cannula 2.0 28 Intake and Output 06/08/18 06/09/18 19:00 07:00 Intake Total 480 ml 360 ml Balance 480 ml 360 ml Intake Oral 480 ml 360 ml # Voids 4 3 # Bowel Movements 1 Laboratory Tests 06/09/18 06:10: White Blood Count 11.9H, Red Blood Count 4.88, Hemoglobin 15.5, Hematocrit 44.5 , Mean Corpuscular Volume 91, Mean Corpuscular Hemoglobin 31.7H, Mean Corpuscular Hemoglobin Concent 34.7, Red Cell Distribution Width 11.5L, Platelet Count 232, Mean Platelet Volume 6.8, Neutrophils (%) (Auto) 74.7, Lymphocytes (%) (Auto) 16.1L, Monocytes (%) (Auto) 7.5, Eosinophils (%) (Auto) 1.0, Basophils (%) (Auto) 0.7, Sodium Level 137, Potassium Level 4.1, Chloride Level 104, Carbon Dioxide Level 27, Anion Gap 6, Blood Urea Nitrogen 15, Creatinine 0.7, Estimat Glomerular Filtration Rate > 60, Glucose Level 101, Calcium Level 9.3 Height (Feet): 5 Height (Inches): 5.00 Weight (Pounds): 172 General Appearance: no apparent distress, alert Neurologic: oriented x 3, responsive, depressed affect Reagan Marshall MD Jun 09, 2018 12:34
--- NOTE | 2018-06-09 13:56 | NUR ---
*-* DISCHARGE PLANNING *-* PATIENT HAS BEEN REFERRED BACK TO: [facility] P:[phone] F:[phone]
--- NOTE | 2018-06-09 14:31 | Infectious Diseases Prog Note ---
Assessment/Plan Assessment/Plan A; Chronic obstructive pulmonary disease exacerbation, leukocytosis; improving schizoaffective disorder, hypothyroidism, hyperlipidemia, hypertension. Positive blood culture with CoANS P: Observe off antibiotic F/U CBC Subjective ROS Limited/Unobtainable: Yes Constitutional: Reports: no symptoms Respiratory: Reports: no symptoms Cardiovascular: Reports: no symptoms Gastrointestinal/Abdominal: Reports: no symptoms Genitourinary: Reports: no symptoms Allergies: Coded Allergies: No Known Allergies (Unverified , 05/22/18) Objective Vital Signs Last 24 Hour Vital Signs Date Time Temp Pulse Resp B/P (MAP) Pulse Ox O2 Delivery O2 Flow Rate FiO2 06/09/18 13:18 89 18 100 Nasal Cannula 2.0 28 06/09/18 13:09 87 18 97 Nasal Cannula 2.0 28 06/09/18 12:00 98.0 80 19 130/72 (91) 93 06/09/18 11:44 97 Nasal Cannula 2.0 06/09/18 11:44 Nasal Cannula 2.0 06/09/18 11:05 Nasal Cannula 2.0 28 06/09/18 11:05 Nasal Cannula 2.0 28 06/09/18 09:33 Nasal Cannula 2.0 06/09/18 08:00 97.9 86 20 138/77 (97) 93 06/09/18 04:00 98.2 88 20 146/76 (99) 93 06/09/18 01:37 86 20 99 Nasal Cannula 2.0 28 06/09/18 01:27 83 20 96 Nasal Cannula 2.0 06/09/18 00:55 Nasal Cannula 2.0 06/09/18 00:55 96 Nasal Cannula 2.0 06/09/18 00:00 97.6 80 20 132/67 (88) 93 06/08/18 21:02 80 20 99 Nasal Cannula 2.0 06/08/18 21:00 Nasal Cannula 2.0 06/08/18 20:46 Nasal Cannula 2.0 28 06/08/18 20:46 82 20 96 Nasal Cannula 2.0 28 06/08/18 20:46 95 Nasal Cannula 2.0 28 06/08/18 20:00 98.7 91 16 104/78 (87) 96 06/08/18 16:00 98.4 87 18 130/77 (94) 96 Height (Feet): 5 Height (Inches): 5.00 Weight (Pounds): 172 General Appearance: no acute distress HEENT: mucous membranes moist Respiratory/Chest: lungs clear Cardiovascular: normal rate Abdomen: soft, non tender Extremities: no edema Neurologic/Psychiatric: alert, responsive Laboratory Tests Test 06/09/18 06:10 White Blood Count 11.9 K/UL (4.8-10.8) H Red Blood Count 4.88 M/UL (4.20-5.40) Hemoglobin 15.5 G/DL (12.0-16.0) Hematocrit 44.5 % (37.0-47.0) Mean Corpuscular Volume 91 FL (80-99) Mean Corpuscular Hemoglobin 31.7 PG (27.0-31.0) H Mean Corpuscular Hemoglobin Concent 34.7 G/DL (32.0-36.0) Red Cell Distribution Width 11.5 % (11.6-14.8) L Platelet Count 232 K/UL (150-450) Mean Platelet Volume 6.8 FL (6.5-10.1) Neutrophils (%) (Auto) 74.7 % (45.0-75.0) Lymphocytes (%) (Auto) 16.1 % (20.0-45.0) L Monocytes (%) (Auto) 7.5 % (1.0-10.0) Eosinophils (%) (Auto) 1.0 % (0.0-3.0) Basophils (%) (Auto) 0.7 % (0.0-2.0) Sodium Level 137 MMOL/L (136-145) Potassium Level 4.1 MMOL/L (3.5-5.1) Chloride Level 104 MMOL/L (98-107) Carbon Dioxide Level 27 MMOL/L (21-32) Anion Gap 6 mmol/L (5-15) Blood Urea Nitrogen 15 mg/dL (7-18) Creatinine 0.7 MG/DL (0.55-1.30) Estimat Glomerular Filtration Rate > 60 mL/min (>60) Glucose Level 101 MG/DL (74-106) Calcium Level 9.3 MG/DL (8.5-10.1) Current Medications Medications (Trade) Dose Ordered Sig/Salty Route PRN Reason Start Time Stop Time Status Last Admin Dose Admin Acetaminophen (Tylenol) 500 mg Q4H PRN NG Mild Pain/Temp > 100.5 06/05/18 17:15 06/22/18 13:08 06/06/18 01:03 Albuterol/ Ipratropium (Albuterol/ Ipratropium) 3 ml Q6HRT HHN 06/08/18 19:30 06/13/18 19:29 06/09/18 13:08 Dextrose 1,000 ml @ 50 mls/hr Q20H IV 06/05/18 16:45 07/02/18 17:55 06/09/18 00:45 Dextrose (Dextrose 50%) 25 ml Q30M PRN IV Hypoglycemia 06/08/18 18:15 07/08/18 18:14 Dextrose (Dextrose 50%) 50 ml Q30M PRN IV Hypoglycemia 06/08/18 18:15 07/08/18 18:14 Fluoxetine HCl (PROzac) 40 mg DAILY NG 06/09/18 09:00 07/09/18 08:59 06/09/18 08:15 Heparin Sodium (Porcine) (Heparin 5000 units/ml) 5,000 units EVERY 12 HOURS SUBQ 06/05/18 21:00 06/21/18 20:59 06/09/18 08:19 Insulin Aspart (NovoLOG) BEFORE MEALS AND HS SUBQ 06/08/18 21:00 07/08/18 20:59 06/09/18 06:50 Olanzapine (ZyPREXA) 15 mg BEDTIME NG 06/05/18 21:00 06/28/18 20:59 06/08/18 22:05 Migel Cohen MD Jun 09, 2018 14:31
[2018-06-09 16:00] VITALS: BP 118/79
--- NOTE | 2018-06-09 16:07 | Nephrology Progress Note ---
Assessment/Plan Problem List: (1) Proteinuria (2) Hypoalbuminemia (3) COPD exacerbation (4) Schizoaffective disorder (5) Azotemia Assessment rising BUN and Hgb resolved admitted with exacerbation COPD and Hypoxia High WBCs : UTI , Pneumonia Proteinuria and HypoAlbuminemia Plan Pulmonary support Antibiotics 24 h urine proteins CAN NOT BE COLLECTED UNLESS FOLEY_ WILL DEFER 2D echo Left ventricular ejection fraction grossly estimated to be 65 %. optimize cardiac status ? DC Subjective ROS Limited/Unobtainable: No Objective Objective Last 24 Hour Vital Signs Date Time Temp Pulse Resp B/P (MAP) Pulse Ox O2 Delivery O2 Flow Rate FiO2 06/09/18 13:18 89 18 100 Nasal Cannula 2.0 28 06/09/18 13:09 87 18 97 Nasal Cannula 2.0 28 06/09/18 12:00 98.0 80 19 130/72 (91) 93 06/09/18 11:44 97 Nasal Cannula 2.0 28 06/09/18 11:44 Nasal Cannula 2.0 28 06/09/18 11:05 Nasal Cannula 2.0 28 06/09/18 11:05 Nasal Cannula 2.0 28 06/09/18 09:33 Nasal Cannula 2.0 06/09/18 08:00 97.9 86 20 138/77 (97) 93 06/09/18 04:00 98.2 88 20 146/76 (99) 93 06/09/18 01:37 86 20 99 Nasal Cannula 2.0 28 06/09/18 01:27 83 20 96 Nasal Cannula 2.0 28 06/09/18 00:55 Nasal Cannula 2.0 28 06/09/18 00:55 96 Nasal Cannula 2.0 28 06/09/18 00:00 97.6 80 20 132/67 (88) 93 06/08/18 21:02 80 20 99 Nasal Cannula 2.0 28 06/08/18 21:00 Nasal Cannula 2.0 06/08/18 20:46 Nasal Cannula 2.0 28 06/08/18 20:46 82 20 96 Nasal Cannula 2.0 28 06/08/18 20:46 95 Nasal Cannula 2.0 28 06/08/18 20:00 98.7 91 16 104/78 (87) 96 Intake and Output 06/08/18 06/09/18 19:00 07:00 Intake Total 480 ml 360 ml Balance 480 ml 360 ml Intake Oral 480 ml 360 ml # Voids 4 3 # Bowel Movements 1 Current Medications Medications (Trade) Dose Ordered Sig/Salty Route PRN Reason Start Time Stop Time Status Last Admin Dose Admin Acetaminophen (Tylenol) 500 mg Q4H PRN NG Mild Pain/Temp > 100.5 06/05/18 17:15 06/22/18 13:08 06/06/18 01:03 Albuterol/ Ipratropium (Albuterol/ Ipratropium) 3 ml Q6HRT HHN 06/08/18 19:30 06/13/18 19:29 06/09/18 13:08 Dextrose 1,000 ml @ 50 mls/hr Q20H IV 06/05/18 16:45 07/02/18 17:55 06/09/18 00:45 Dextrose (Dextrose 50%) 25 ml Q30M PRN IV Hypoglycemia 06/08/18 18:15 07/08/18 18:14 Dextrose (Dextrose 50%) 50 ml Q30M PRN IV Hypoglycemia 06/08/18 18:15 07/08/18 18:14 Fluoxetine HCl (PROzac) 40 mg DAILY NG 06/09/18 09:00 07/09/18 08:59 06/09/18 08:15 Heparin Sodium (Porcine) (Heparin 5000 units/ml) 5,000 units EVERY 12 HOURS SUBQ 06/05/18 21:00 06/21/18 20:59 06/09/18 08:19 Insulin Aspart (NovoLOG) BEFORE MEALS AND HS SUBQ 06/08/18 21:00 07/08/18 20:59 06/09/18 06:50 Olanzapine (ZyPREXA) 15 mg BEDTIME NG 06/05/18 21:00 06/28/18 20:59 06/08/18 22:05 Laboratory Tests 06/09/18 06:10: White Blood Count 11.9H, Red Blood Count 4.88, Hemoglobin 15.5, Hematocrit 44.5 , Mean Corpuscular Volume 91, Mean Corpuscular Hemoglobin 31.7H, Mean Corpuscular Hemoglobin Concent 34.7, Red Cell Distribution Width 11.5L, Platelet Count 232, Mean Platelet Volume 6.8, Neutrophils (%) (Auto) 74.7, Lymphocytes (%) (Auto) 16.1L, Monocytes (%) (Auto) 7.5, Eosinophils (%) (Auto) 1.0, Basophils (%) (Auto) 0.7, Sodium Level 137, Potassium Level 4.1, Chloride Level 104, Carbon Dioxide Level 27, Anion Gap 6, Blood Urea Nitrogen 15, Creatinine 0.7, Estimat Glomerular Filtration Rate > 60, Glucose Level 101, Calcium Level 9.3 Height (Feet): 5 Height (Inches): 5.00 Weight (Pounds): 172 General Appearance: no apparent distress Objective no change Seamus Morfin MD Jun 09, 2018 16:07
--- NOTE | 2018-06-09 17:21 | Neurology Progress Note ---
Interim History Interim History Interim History Ms. Whitfield feels very well. She is enjoying her pureed diet. She does not desire to advance her diet - she likes the pureed food. She is not short of breath She is awake, alert and bright. She feels that her mind is clear. She feels stronger. She sat in a chair for few minutes yesterday. She is on room air now. She is not delusional. She denies any new neurologic symptoms. Review of Systems Neuro Review of Systems Benign. Objective Physical Exam Last Vital Signs Date Time Temp Pulse Resp B/P (MAP) Pulse Ox O2 Delivery O2 Flow Rate FiO2 06/09/18 16:00 97.7 79 20 118/79 (92) 93 06/09/18 13:18 Nasal Cannula 2.0 28 Laboratory Tests Test 06/09/18 06:10 White Blood Count 11.9 K/UL (4.8-10.8) H Red Blood Count 4.88 M/UL (4.20-5.40) Hemoglobin 15.5 G/DL (12.0-16.0) Hematocrit 44.5 % (37.0-47.0) Mean Corpuscular Volume 91 FL (80-99) Mean Corpuscular Hemoglobin 31.7 PG (27.0-31.0) H Mean Corpuscular Hemoglobin Concent 34.7 G/DL (32.0-36.0) Red Cell Distribution Width 11.5 % (11.6-14.8) L Platelet Count 232 K/UL (150-450) Mean Platelet Volume 6.8 FL (6.5-10.1) Neutrophils (%) (Auto) 74.7 % (45.0-75.0) Lymphocytes (%) (Auto) 16.1 % (20.0-45.0) L Monocytes (%) (Auto) 7.5 % (1.0-10.0) Eosinophils (%) (Auto) 1.0 % (0.0-3.0) Basophils (%) (Auto) 0.7 % (0.0-2.0) Sodium Level 137 MMOL/L (136-145) Potassium Level 4.1 MMOL/L (3.5-5.1) Chloride Level 104 MMOL/L (98-107) Carbon Dioxide Level 27 MMOL/L (21-32) Anion Gap 6 mmol/L (5-15) Blood Urea Nitrogen 15 mg/dL (7-18) Creatinine 0.7 MG/DL (0.55-1.30) Estimat Glomerular Filtration Rate > 60 mL/min (>60) Glucose Level 101 MG/DL (74-106) Calcium Level 9.3 MG/DL (8.5-10.1) Neurologic Exam Objective PHYSICAL EXAMINATION: GENERAL: She is a well-developed, well-nourished, pleasant lady, lying in bed. HEAD: Normocephalic and atraumatic. EENT: Examination benign NECK: No neck rigidity was observed. NEUROLOGICAL EXAMINATION: MENTAL STATUS EXAMINATION: She was awake and alert. She was oriented to self, [facility] and May. She was able to recall 3/3 words immediately, after 1 minute and after 3 minutes. She was able to remember president Theodora through [employer] with hints. Her mathematical skills were impaired. Her visuospatial function was also impaired. SPEECH: She had a no dysarthria. LANGUAGE: She had a mild anomia for low-frequency words. CRANIAL NERVE EXAMINATION: II: The visual beltran were intact on confrontation testing. III, IV & : The external ocular movements were full and the pupils 3 mm in diameter, equal, round, regular, and reactive to light. V: She had normal facial sensations, and the temporales, masseters, and pterygoids functioned normally. VII: She had normal facial expressions and no facial asymmetry. VIII: She was able to hear well bilaterally and had no nystagmus. IX: The palate moved symmetrically on phonation. X: She had no hoarseness of voice. XI: The sternocleidomastoids and trapezii functioned normally. XII: The tongue was in the midline without any fasciculations or atrophy. MOTOR SYSTEM: The tone was normal in all four extremities. Examination of muscle mass revealed no focal wasting. Examination of power revealed G 5/5 power in the upper extremities. She also had G 5/5 in the lower extremities except for G 4+/5 in the iliopsoas. SENSORY EXAMINATION: She had intact sensations to light touch. COORDINATION: She performed well on uozyav-mi-hgbj testing. REFLEXES: 1+ and bilaterally symmetrical at the biceps, triceps, brachioradialis, and knees, 0 at both ankles. The plantar responses were flexor bilaterally. STANCE: Could not be tested. GAIT: Could not be tested. Impression/Recommendations Diagnostic Impression 1. Ms Leigh Ann Whitfield is a 67-year-old, right-handed, lady, who does have a past history of hypertension, dyslipidemia, chronic obstructive pulmonary disease, hypothyroidism, schizoaffective disorder, and recent falls, who was hospitalized on 05/22/2018 for an altered mental state and a fall [facility]. She was found to be hypoxic, hypercapnic, and had a significant leukocytosis. Since she has been in the hospital, she has improved. 2. She feels very well. She is enjoying her pureed diet. She does not desire to advance her diet - she likes the pureed food. She is not short of breath. She is awake, alert and bright. She feels that her mind is clear. She feels stronger. She sat in a chair for few minutes yesterday. She is on room air now. She is not delusional. She denies any new neurologic symptoms. 3. On neurological examination, at this time, she is disoriented to the exact date. Has problems with visuospatial function and higher cognitive function. Has a mild anomia, has proximal lower extremities weakness, an has globally diminished deep tendon reflexes. 4. Laboratory data on my initial evaluation revealed that she had a significant leukocytosis with a WBC count of 19,700. Her chemistry panel revealed that her uric acid level was elevated at 8.2, magnesium was low at 1.6. ProBNP that was elevated at 186, albumin was low at 2.5. Her B12 level was normal at 924. Her folate level was normal at 40.6. Her TSH was normal at 1.92 with a free T4 of 1.13. The Hemoglobin A1c was at 6%. Latest arterial blood gas revealed a pH at 7.37, pCO2 at 62, and pO2 at 56. Her urinalysis revealed 1+ leukocyte esterase, 0-2 red blood cells, and 2-4 white blood cells per high-power field. 5. Further laboratory tests have revealed a minimally elevated ammonia at 34. 6. The last ABG done on 06/02/18 revealed a pCO2 at 44 but a low pO2 at 62. 7. Her leukocytosis has improved with a WBC count of 15,500 on 06/02/18. Her HB is still elevated at 16.3G 8. The CT scan of the brain without contrast revealed atrophy and some deep white matter changes, but no acute pathology. 9. The EGG done on 05/24/18 was normal in the awake and drowsy states. 10. The patient's history, neurological examination, laboratory data, and imaging studies are most compatible with a toxic metabolic encephalopathy related to the hypoxia, hypercapnia, and an infectious process. Her encephalopathy continues to improve. Recommendations 1. Continue present management. 2. Aggressive treatment of the patient's respiratory dysfunction as per Dr. Membreno. 3. Aggressive treatment of the patient's infectious process as per Dr. Cohen. 4. Correction of fluid and electrolyte status. 5. Mobilize with PT/OT. 6. Observe. Fransico Bolton M.D., M.S.P.H. Fransico Bolton MD Jun 09, 2018 17:21
--- NOTE | 2018-06-09 19:20 | Cardiac Electrophysiology PN ---
Assessment/Plan Assessment/Plan 1. Respiratory failure due to COPD. On NC and Abx per Dr. Membreno Ruled out for [place]. EF 65%. No Significant CHF. 2. Elevated white count, likely pneumonia Antibiotic per Dr. Cohen. 3. History of psychosis. 4. Sinus tach due to PNA. DW RN Subjective Subjective On nasal cannula and Abx. NG removed tolerating feeding Objective Last 24 Hour Vital Signs Date Time Temp Pulse Resp B/P (MAP) Pulse Ox O2 Delivery O2 Flow Rate FiO2 06/09/18 16:00 97.7 79 20 118/79 (92) 93 06/09/18 13:18 89 18 100 Nasal Cannula 2.0 28 06/09/18 13:09 87 18 97 Nasal Cannula 2.0 28 06/09/18 12:00 98.0 80 19 130/72 (91) 93 06/09/18 11:44 97 Nasal Cannula 2.0 28 06/09/18 11:44 Nasal Cannula 2.0 28 06/09/18 11:05 Nasal Cannula 2.0 28 06/09/18 11:05 Nasal Cannula 2.0 28 06/09/18 09:33 Nasal Cannula 2.0 06/09/18 08:00 97.9 86 20 138/77 (97) 93 06/09/18 04:00 98.2 88 20 146/76 (99) 93 06/09/18 01:37 86 20 99 Nasal Cannula 2.0 28 06/09/18 01:27 83 20 96 Nasal Cannula 2.0 28 06/09/18 00:55 Nasal Cannula 2.0 28 06/09/18 00:55 96 Nasal Cannula 2.0 28 06/09/18 00:00 97.6 80 20 132/67 (88) 93 06/08/18 21:02 80 20 99 Nasal Cannula 2.0 28 06/08/18 21:00 Nasal Cannula 2.0 06/08/18 20:46 Nasal Cannula 2.0 28 06/08/18 20:46 82 20 96 Nasal Cannula 2.0 28 06/08/18 20:46 95 Nasal Cannula 2.0 28 06/08/18 20:00 98.7 91 16 104/78 (87) 96 Intake and Output 06/08/18 06/09/18 19:00 07:00 Intake Total 480 ml 410 ml Balance 480 ml 410 ml Intake Oral 480 ml 360 ml IV Total 50 ml # Voids 4 3 # Bowel Movements 1 Laboratory Tests Test 06/09/18 06:10 White Blood Count 11.9 K/UL (4.8-10.8) H Red Blood Count 4.88 M/UL (4.20-5.40) Hemoglobin 15.5 G/DL (12.0-16.0) Hematocrit 44.5 % (37.0-47.0) Mean Corpuscular Volume 91 FL (80-99) Mean Corpuscular Hemoglobin 31.7 PG (27.0-31.0) H Mean Corpuscular Hemoglobin Concent 34.7 G/DL (32.0-36.0) Red Cell Distribution Width 11.5 % (11.6-14.8) L Platelet Count 232 K/UL (150-450) Mean Platelet Volume 6.8 FL (6.5-10.1) Neutrophils (%) (Auto) 74.7 % (45.0-75.0) Lymphocytes (%) (Auto) 16.1 % (20.0-45.0) L Monocytes (%) (Auto) 7.5 % (1.0-10.0) Eosinophils (%) (Auto) 1.0 % (0.0-3.0) Basophils (%) (Auto) 0.7 % (0.0-2.0) Sodium Level 137 MMOL/L (136-145) Potassium Level 4.1 MMOL/L (3.5-5.1) Chloride Level 104 MMOL/L (98-107) Carbon Dioxide Level 27 MMOL/L (21-32) Anion Gap 6 mmol/L (5-15) Blood Urea Nitrogen 15 mg/dL (7-18) Creatinine 0.7 MG/DL (0.55-1.30) Estimat Glomerular Filtration Rate > 60 mL/min (>60) Glucose Level 101 MG/DL (74-106) Calcium Level 9.3 MG/DL (8.5-10.1) Objective HEAD AND NECK: No JVD on N/C LUNGS: Coarse rhonchi. CARDIOVASCULAR: Regular S1 and S2 no M/G/R ABDOMEN: Soft. EXTREMITIES: No pitting edema. Zane Ocampo MD Jun 09, 2018 19:20
--- NOTE | 2018-06-09 19:21 | General Progress Note ---
Assessment/Plan Problem List: (1) Hypoxia ICD Codes: R09.02 - Hypoxemia SNOMED: 586205183 (2) COPD exacerbation ICD Codes: J44.1 - Chronic obstructive pulmonary disease with (acute) exacerbation SNOMED: 695295128 (3) Hypercapnic respiratory failure, chronic ICD Codes: J96.12 - Chronic respiratory failure with hypercapnia SNOMED: 647816126 (4) Hypoxemia ICD Codes: R09.02 - Hypoxemia SNOMED: 718352658 (5) Benzodiazepine dependence ICD Codes: F13.20 - Sedative, hypnotic or anxiolytic dependence, uncomplicated SNOMED: 590313883 (6) Hypoalbuminemia ICD Codes: E88.09 - Other disorders of plasma-protein metabolism, not elsewhere classified SNOMED: 558749708 Status: progressing Assessment/Plan sepsis improving poor appetite afebrile reviewed chart and labs copd exacerbation improving hypercapnic respiratory failure Subjective ROS Limited/Unobtainable: Yes Constitutional: Reports: no symptoms Allergies: Coded Allergies: No Known Allergies (Unverified , 05/22/18) Subjective lehtargic sob Objective Last 24 Hour Vital Signs Date Time Temp Pulse Resp B/P (MAP) Pulse Ox O2 Delivery O2 Flow Rate FiO2 06/09/18 16:00 97.7 79 20 118/79 (92) 93 06/09/18 13:18 89 18 100 Nasal Cannula 2.0 06/09/18 13:09 87 18 97 Nasal Cannula 2.0 28 06/09/18 12:00 98.0 80 19 130/72 (91) 93 06/09/18 11:44 97 Nasal Cannula 2.0 06/09/18 11:44 Nasal Cannula 2.0 06/09/18 11:05 Nasal Cannula 2.0 06/09/18 11:05 Nasal Cannula 2.0 28 06/09/18 09:33 Nasal Cannula 2.0 06/09/18 08:00 97.9 86 20 138/77 (97) 93 06/09/18 04:00 98.2 88 20 146/76 (99) 93 06/09/18 01:37 86 20 99 Nasal Cannula 2.0 28 06/09/18 01:27 83 20 96 Nasal Cannula 2.0 28 06/09/18 00:55 Nasal Cannula 2.0 06/09/18 00:55 96 Nasal Cannula 2.0 28 06/09/18 00:00 97.6 80 20 132/67 (88) 93 06/08/18 21:02 80 20 99 Nasal Cannula 2.0 28 06/08/18 21:00 Nasal Cannula 2.0 06/08/18 20:46 Nasal Cannula 2.0 28 06/08/18 20:46 82 20 96 Nasal Cannula 2.0 28 06/08/18 20:46 95 Nasal Cannula 2.0 28 06/08/18 20:00 98.7 91 16 104/78 (87) 96 Intake and Output 06/08/18 06/09/18 19:00 07:00 Intake Total 480 ml 410 ml Balance 480 ml 410 ml Intake Oral 480 ml 360 ml IV Total 50 ml # Voids 4 3 # Bowel Movements 1 Laboratory Tests 06/09/18 06:10: White Blood Count 11.9H, Red Blood Count 4.88, Hemoglobin 15.5, Hematocrit 44.5 , Mean Corpuscular Volume 91, Mean Corpuscular Hemoglobin 31.7H, Mean Corpuscular Hemoglobin Concent 34.7, Red Cell Distribution Width 11.5L, Platelet Count 232, Mean Platelet Volume 6.8, Neutrophils (%) (Auto) 74.7, Lymphocytes (%) (Auto) 16.1L, Monocytes (%) (Auto) 7.5, Eosinophils (%) (Auto) 1.0, Basophils (%) (Auto) 0.7, Sodium Level 137, Potassium Level 4.1, Chloride Level 104, Carbon Dioxide Level 27, Anion Gap 6, Blood Urea Nitrogen 15, Creatinine 0.7, Estimat Glomerular Filtration Rate > 60, Glucose Level 101, Calcium Level 9.3 Height (Feet): 5 Height (Inches): 5.00 Weight (Pounds): 172 General Appearance: confused Cardiovascular: normal rate Respiratory/Chest: lungs clear Margot Dutta MD Jun 09, 2018 19:21
--- NOTE | 2018-06-09 19:24 | NUR ---
HAND-OFF: Report given to DIMITRY Tanner.
--- NOTE | 2018-06-09 19:30 | NUR ---
NURSE NOTES: RECEIVED PATIENT LYING IN BED, APPEAR TO BE ASLEEP, AWAKENED TO NAME, ALERT/ORIENTED X3 WITH PERIODS OF FORGETFULNESS/CONFUSION, DENIES PAIN. IV INTACT TO LEFT FOREARM, TOLERATING FLUIDS, NO REDNESS/SWELLING NOTED TO SITE. NO SIGNS AND SYMPTOMS OF ACUTE CARDIO RESPIRATORY DISTRESS/SHORTNESS OF BREATH. NO REPORT OF GI DISCOMFORT, NO N/V/D. SIDE RAILS UP X3/BED IN LOWEST POSITION FOR SAFETY. CALL LIGHT WITHIN REACH. NAD. CONTINUE WITH CURRENT PLAN OF CARE. FREQUENT ROUNDING FOR SAFETY/NEEDS.
[2018-06-09 20:00] VITALS: BP 131/64
--- NOTE | 2018-06-09 20:34 | NUR ---
CASE MANAGEMENT: REVIEW SI: COPD EXACERBATION . T 97.7 HR 79 RR 20 BP 118/79 SAT 93% NC/2L WBC 11.9 IS:SOLU MEDROL IV QD ALBUTEROL HHN Q6HR D5W IVF @50ML/HR MED/SURG STATUS DCP: PATIENT IS FROM [facility]
--- NOTE | 2018-06-09 22:48 | General Progress Note ---
Assessment/Plan Assessment/Plan Assessment and Recs: # Leukocytosis - is likely related to infection/pna --> smear has been reviewed and only 1% metamyelocytes noted, not significant finding --> esr and crp elevated --> wbc trend : 19--> 22--> 21--> 20-->14-->15 --> abx as per Dr. Cohen, currently on cefepime # Elevated d-dimer - r/o dvt of lower ext --> venous duplex negative scan --> likely elevated due to many possible reasons --> CXR 05/27 Elevated right hemidiaphragm. Bibasilar lung atelectasis. ->05/31: Bilateral lower lobe atelectasis and consolidation, improved since prior study of 05/26/2018 but persistent # Hypoxemia potentially copd related --> off bipap at this time --> bipap at night as per pulm # Hypercarbia # Benzodiazepine dependence # Psychosis # Sinus tach --> as per Dr. Ocampo The timing of this note does not necessarily reflect the time of the patient was seen. Greatly appreciate consultation! Subjective Date patient seen: Jun 08, 2018 HEENT: Denies: no symptoms, eye pain, blurred vision, tearing, double vision, ear pain, ear discharge, nose pain, nose congestion, throat pain, throat swelling, mouth pain, mouth swelling, other Cardiovascular: Denies: no symptoms, chest pain, edema, irregular heart rate, lightheadedness, palpitations, syncope, other Respiratory: Denies: no symptoms, cough, orthopnea, shortness of breath, SOB with excertion, SOB at rest, sputum, stridor, wheezing, other Gastrointestinal/Abdominal: Denies: no symptoms, abdomen distended, abdominal pain, black stools, tarry stools, blood in stool, constipated, diarrhea, difficulty swallowing, nausea, poor appetite, poor fluid intake, rectal bleeding , vomiting, other Genitourinary: Denies: no symptoms, burning, discharge, frequency, flank pain, hematuria, incontinence, pain, urgency, other Neurologic/Psychiatric: Denies: no symptoms, anxiety, depressed, emotional problems, headache, numbness, paresthesia, pre-existing deficit, seizure, tingling, tremors, weakness, other Endocrine: Denies: no symptoms, excessive sweating, flushing, intolerance to cold, intolerance to heat, increased hunger, increased thirst, increased urine, unexplained weight gain, unexplained weight loss, other Hematologic/Lymphatic: Denies: no symptoms, anemia, easy bleeding, easy bruising, other Allergies: Coded Allergies: No Known Allergies (Unverified , 05/22/18) Subjective 2: on venturi mask, no new changes, mild fever today, no chills 05/24: Pt is seen by bedside, awake, comfortable, wbc trending up 05/25: hgb and wbc trending up, seen in the room, awake, bipap, no fevers or cills , 05/26: no new changes, no fever, no chills, Back on BIPAP 05/29:seen by bedside in restraints. BP is elevated, CXR is reviewed, no acute findings, hgb trending up. 05/30: awake, comfortable, no acute distress, wbc 20, hgb still trending up at 19 today. 05/31: seen by bedside, awake, comfortable, no acute distress, 06/01: seen y bedside, awake, comfortable, no acute distress, wbc and hgb trending down. wbc 14, hgb 17. 06/02: Pt is resting in bed, on nasal cannula, was on BIPAP last night, wbc 15 06/04: seen by bedside, awake, comfortable, no events 06/05: awake, comfortable, hgb is trending down and stable. 06/06: Pt is seen by bedside, awake, comfortable, no acute distress reported. wbc trending down 06/07: see by bedside, awake, comfortable. 06/08: Seen by bedside, awake, comfortable Objective Last 24 Hour Vital Signs Date Time Temp Pulse Resp B/P (MAP) Pulse Ox O2 Delivery O2 Flow Rate FiO2 06/09/18 21:00 Nasal Cannula 2.0 06/09/18 20:00 97.8 79 22 131/64 (86) 94 06/09/18 19:33 Nasal Cannula 2.0 28 06/09/18 19:33 98 Nasal Cannula 2.0 28 06/09/18 19:32 86 18 98 Nasal Cannula 2.0 28 06/09/18 16:00 97.7 79 20 118/79 (92) 93 06/09/18 13:18 89 18 100 Nasal Cannula 2.0 28 06/09/18 13:09 87 18 97 Nasal Cannula 2.0 06/09/18 12:00 98.0 80 19 130/72 (91) 93 06/09/18 11:44 97 Nasal Cannula 2.0 06/09/18 11:44 Nasal Cannula 2.0 06/09/18 11:05 Nasal Cannula 2.0 06/09/18 11:05 Nasal Cannula 2.0 06/09/18 09:33 Nasal Cannula 2.0 06/09/18 08:00 97.9 86 20 138/77 (97) 93 06/09/18 04:00 98.2 88 20 146/76 (99) 93 06/09/18 01:37 86 20 99 Nasal Cannula 2.0 06/09/18 01:27 83 20 96 Nasal Cannula 2.0 06/09/18 00:55 Nasal Cannula 2.0 06/09/18 00:55 96 Nasal Cannula 2.0 06/09/18 00:00 97.6 80 20 132/67 (88) 93 Intake and Output 06/08/18 06/09/18 19:00 07:00 Intake Total 480 ml 660 ml Balance 480 ml 660 ml Intake Oral 480 ml 360 ml IV Total 300 ml # Voids 4 3 # Bowel Movements 1 Laboratory Tests 06/09/18 06:10: White Blood Count 11.9H, Red Blood Count 4.88, Hemoglobin 15.5, Hematocrit 44.5 , Mean Corpuscular Volume 91, Mean Corpuscular Hemoglobin 31.7H, Mean Corpuscular Hemoglobin Concent 34.7, Red Cell Distribution Width 11.5L, Platelet Count 232, Mean Platelet Volume 6.8, Neutrophils (%) (Auto) 74.7, Lymphocytes (%) (Auto) 16.1L, Monocytes (%) (Auto) 7.5, Eosinophils (%) (Auto) 1.0, Basophils (%) (Auto) 0.7, Sodium Level 137, Potassium Level 4.1, Chloride Level 104, Carbon Dioxide Level 27, Anion Gap 6, Blood Urea Nitrogen 15, Creatinine 0.7, Estimat Glomerular Filtration Rate > 60, Glucose Level 101, Calcium Level 9.3 Height (Feet): 5 Height (Inches): 5.00 Weight (Pounds): 172 Objective General Appearance: no apparent distress, GCS 15, non-toxic, other - sleepy Head: normocephalic, atraumatic Eyes: bilateral eye normal inspection, bilateral eye PERRL ENT: hearing grossly normal, normal pharynx, no angioedema, normal voice Neck: full range of motion, supple/symm/no masses Respiratory: chest non-tender, lungs clear, normal breath sounds Cardiovascular: regular rate, rhythm, no edema Gastrointestinal: normal bowel sounds, non tender Musculoskeletal: back normal, gait/station normal Jorje Troy MD Jun 09, 2018 22:48
--- NOTE | 2018-06-09 22:49 | General Progress Note ---
Assessment/Plan Assessment/Plan Assessment and Recs: # Leukocytosis - is likely related to infection/pna --> smear has been reviewed and only 1% metamyelocytes noted, not significant finding --> esr and crp elevated --> wbc trend : 19--> 22--> 21--> 20-->14-->15 --> abx as per Dr. Cohen, currently on cefepime # Elevated d-dimer - r/o dvt of lower ext --> venous duplex negative scan --> likely elevated due to many possible reasons --> CXR 05/27 Elevated right hemidiaphragm. Bibasilar lung atelectasis. ->05/31: Bilateral lower lobe atelectasis and consolidation, improved since prior study of 05/26/2018 but persistent # Hypoxemia potentially copd related --> off bipap at this time --> bipap at night as per pulm # Hypercarbia # Benzodiazepine dependence # Psychosis # Sinus tach --> as per Dr. Ocampo The timing of this note does not necessarily reflect the time of the patient was seen. Greatly appreciate consultation! Subjective Constitutional: Denies: no symptoms, chills, diaphoresis, fever, malaise, weakness, other HEENT: Denies: no symptoms, eye pain, blurred vision, tearing, double vision, ear pain, ear discharge, nose pain, nose congestion, throat pain, throat swelling, mouth pain, mouth swelling, other Cardiovascular: Denies: no symptoms, chest pain, edema, irregular heart rate, lightheadedness, palpitations, syncope, other Respiratory: Denies: no symptoms, cough, orthopnea, shortness of breath, SOB with excertion, SOB at rest, sputum, stridor, wheezing, other Gastrointestinal/Abdominal: Denies: no symptoms, abdomen distended, abdominal pain, black stools, tarry stools, blood in stool, constipated, diarrhea, difficulty swallowing, nausea, poor appetite, poor fluid intake, rectal bleeding , vomiting, other Genitourinary: Denies: no symptoms, burning, discharge, frequency, flank pain, hematuria, incontinence, pain, urgency, other Neurologic/Psychiatric: Denies: no symptoms, anxiety, depressed, emotional problems, headache, numbness, paresthesia, pre-existing deficit, seizure, tingling, tremors, weakness, other Endocrine: Denies: no symptoms, excessive sweating, flushing, intolerance to cold, intolerance to heat, increased hunger, increased thirst, increased urine, unexplained weight gain, unexplained weight loss, other Hematologic/Lymphatic: Denies: no symptoms, anemia, easy bleeding, easy bruising, other Allergies: Coded Allergies: No Known Allergies (Unverified , 05/22/18) Subjective 2: on venturi mask, no new changes, mild fever today, no chills 05/24: Pt is seen by bedside, awake, comfortable, wbc trending up 05/25: hgb and wbc trending up, seen in the room, awake, bipap, no fevers or cills , 05/26: no new changes, no fever, no chills, Back on BIPAP 05/29:seen by bedside in restraints. BP is elevated, CXR is reviewed, no acute findings, hgb trending up. 05/30: awake, comfortable, no acute distress, wbc 20, hgb still trending up at 19 today. 05/31: seen by bedside, awake, comfortable, no acute distress, 06/01: seen y bedside, awake, comfortable, no acute distress, wbc and hgb trending down. wbc 14, hgb 17. 06/02: Pt is resting in bed, on nasal cannula, was on BIPAP last night, wbc 15 06/04: seen by bedside, awake, comfortable, no events 06/05: awake, comfortable, hgb is trending down and stable. 06/06: Pt is seen by bedside, awake, comfortable, no acute distress reported. wbc trending down 06/07: see by bedside, awake, comfortable. 06/08: Seen by bedside, awake, comfortable 06/09: Wbc trending down ,On nasal cannula and Abx. NG removed tolerating feeding Objective Last 24 Hour Vital Signs Date Time Temp Pulse Resp B/P (MAP) Pulse Ox O2 Delivery O2 Flow Rate FiO2 06/09/18 21:00 Nasal Cannula 2.0 06/09/18 20:00 97.8 79 22 131/64 (86) 94 06/09/18 19:33 Nasal Cannula 2.0 28 06/09/18 19:33 98 Nasal Cannula 2.0 28 06/09/18 19:32 86 18 98 Nasal Cannula 2.0 28 06/09/18 16:00 97.7 79 20 118/79 (92) 93 06/09/18 13:18 89 18 100 Nasal Cannula 2.0 06/09/18 13:09 87 18 97 Nasal Cannula 2.0 28 06/09/18 12:00 98.0 80 19 130/72 (91) 93 06/09/18 11:44 97 Nasal Cannula 2.0 06/09/18 11:44 Nasal Cannula 2.0 06/09/18 11:05 Nasal Cannula 2.0 06/09/18 11:05 Nasal Cannula 2.0 28 06/09/18 09:33 Nasal Cannula 2.0 06/09/18 08:00 97.9 86 20 138/77 (97) 06/09/18 04:00 98.2 88 20 146/76 (99) 06/09/18 01:37 86 20 99 Nasal Cannula 2.0 06/09/18 01:27 83 20 96 Nasal Cannula 2.0 06/09/18 00:55 Nasal Cannula 2.0 06/09/18 00:55 96 Nasal Cannula 2.0 06/09/18 00:00 97.6 80 20 132/67 (88) 93 Intake and Output 06/08/18 06/09/18 19:00 07:00 Intake Total 480 ml 660 ml Balance 480 ml 660 ml Intake Oral 480 ml 360 ml IV Total 300 ml # Voids 4 3 # Bowel Movements 1 Laboratory Tests 06/09/18 06:10: White Blood Count 11.9H, Red Blood Count 4.88, Hemoglobin 15.5, Hematocrit 44.5 , Mean Corpuscular Volume 91, Mean Corpuscular Hemoglobin 31.7H, Mean Corpuscular Hemoglobin Concent 34.7, Red Cell Distribution Width 11.5L, Platelet Count 232, Mean Platelet Volume 6.8, Neutrophils (%) (Auto) 74.7, Lymphocytes (%) (Auto) 16.1L, Monocytes (%) (Auto) 7.5, Eosinophils (%) (Auto) 1.0, Basophils (%) (Auto) 0.7, Sodium Level 137, Potassium Level 4.1, Chloride Level 104, Carbon Dioxide Level 27, Anion Gap 6, Blood Urea Nitrogen 15, Creatinine 0.7, Estimat Glomerular Filtration Rate > 60, Glucose Level 101, Calcium Level 9.3 Height (Feet): 5 Height (Inches): 5.00 Weight (Pounds): 172 Objective General Appearance: no apparent distress, GCS 15, non-toxic, other - sleepy Head: normocephalic, atraumatic Eyes: bilateral eye normal inspection, bilateral eye PERRL ENT: hearing grossly normal, normal pharynx, no angioedema, normal voice Neck: full range of motion, supple/symm/no masses Respiratory: chest non-tender, lungs clear, normal breath sounds Cardiovascular: regular rate, rhythm, no edema Gastrointestinal: normal bowel sounds, non tender Musculoskeletal: back normal, gait/station normal Jorje Troy MD Jun 09, 2018 22:49
[2018-06-10] VITALS: BP 141/68
[2018-06-10] MEDS: Albuterol/Ipratropium 3ml neb HHN SCH ×4 (01:00→19:27)
[2018-06-10 04:00] VITALS: BP 106/72
[2018-06-10] MEDS: NovoLOG Insulin Flexpen SUBQ SCH ×4 (06:30→21:00)
--- NOTE | 2018-06-10 06:34 | NUR ---
NURSE NOTES: RESTED WELL, NO SIGNIFICANT CHANGE OF CONDITION NOTED THROUGHOUT THE NIGHT. SAFETY MAINTAINED. NAD.
[2018-06-10 06:54] LABS: BASOPHILS % (AUTO) 0.7 % (0.0-2.0); EOSINOPHILS % (AUTO) 1.4 % (0.0-3.0); HEMATOCRIT 44.6 % (37.0-47.0); HEMOGLOBIN 15.4 G/DL (12.0-16.0); LYMPHOCYTES % (AUTO) 19.1 % (20.0-45.0); MEAN CORPUSCULAR VOLUME 91 FL (80-99); MONOCYTES % (AUTO) 6.5 % (1.0-10.0); NEUTROPHILS % (AUTO) 72.3 % (45.0-75.0); PLATELET COUNT 251 K/UL (150-450); RED BLOOD COUNT 4.89 M/UL (4.20-5.40); RED CELL DISTRIBUTION WIDTH 11.8 % (11.6-14.8); WHITE BLOOD COUNT 11.1 K/UL (4.8-10.8)
[2018-06-10 07:14] LABS: ANION GAP 7 mmol/L (5-15); BLOOD UREA NITROGEN 11 mg/dL (7-18); CALCIUM 9.2 MG/DL (8.5-10.1); CARBON DIOXIDE 27 MMOL/L (21-32); CHLORIDE 103 MMOL/L (98-107); CREATININE 0.6 MG/DL (0.55-1.30); POTASSIUM 4.1 MMOL/L (3.5-5.1); SODIUM 137 MMOL/L (136-145)
--- NOTE | 2018-06-10 07:28 | NUR ---
NURSE NOTES: Report received from DIMITRY Gomez. Pt in bed, awake, talkative, no complaints of pain, no apparent distress noted, respirations regular, bed in lowest position, call light within reach.
[2018-06-10 08:00] VITALS: BP 117/66
[2018-06-10] MEDS: Heparin 5000 units/ml inj SUBQ SCH ×2 (08:15→20:50)
--- NOTE | 2018-06-10 11:48 | Infectious Diseases Prog Note ---
Assessment/Plan Assessment/Plan antibiotics : none A 1. aerococcus UTI s/p rx 2. COPD exacerbation 3. schizophrenia 4. hypertension 5. leucocytosis likely secondary to steroids improving 6. + blood cultures with coag neg staph likely contaminated 7. pneumonia s/p rx P 1. continue off antibiotics Subjective Constitutional: Denies: fever, chills Respiratory: Reports: shortness of breath - mild; Denies: dry cough Gastrointestinal/Abdominal: Denies: nausea, vomiting, diarrhea Musculoskeletal: Denies: pain Allergies: Coded Allergies: No Known Allergies (Unverified , 05/22/18) Objective Vital Signs Last 24 Hour Vital Signs Date Time Temp Pulse Resp B/P (MAP) Pulse Ox O2 Delivery O2 Flow Rate FiO2 06/10/18 09:00 Nasal Cannula 2.0 06/10/18 08:10 98 Nasal Cannula 2.0 28 06/10/18 08:10 Nasal Cannula 2.0 28 06/10/18 08:10 Nasal Cannula 06/10/18 08:10 Nasal Cannula 06/10/18 08:00 98.4 89 18 117/66 (83) 95 06/10/18 04:00 97.7 78 17 106/72 (83) 92 06/10/18 01:21 Nasal Cannula 06/10/18 01:21 Nasal Cannula 06/10/18 00:00 98.1 75 22 141/68 (92) 97 06/09/18 21:00 Nasal Cannula 2.0 06/09/18 20:00 97.8 79 22 131/64 (86) 94 06/09/18 19:33 Nasal Cannula 2.0 28 06/09/18 19:33 98 Nasal Cannula 2.0 28 06/09/18 19:32 86 18 98 Nasal Cannula 2.0 28 06/09/18 16:00 97.7 79 20 118/79 (92) 93 06/09/18 13:18 89 18 100 Nasal Cannula 2.0 28 06/09/18 13:09 87 18 97 Nasal Cannula 2.0 28 06/09/18 12:00 98.0 80 19 130/72 (91) 93 Height (Feet): 5 Height (Inches): 5.00 Weight (Pounds): 172 Respiratory/Chest: lungs clear Cardiovascular: normal rate, regular rhythm, no gallop/murmur Abdomen: soft, non tender Extremities: no edema Laboratory Tests Test 2/23/19 05:40 White Blood Count 11.1 K/UL (4.8-10.8) H Red Blood Count 4.89 M/UL (4.20-5.40) Hemoglobin 15.4 G/DL (12.0-16.0) Hematocrit 44.6 % (37.0-47.0) Mean Corpuscular Volume 91 FL (80-99) Mean Corpuscular Hemoglobin 31.5 PG (27.0-31.0) H Mean Corpuscular Hemoglobin Concent 34.5 G/DL (32.0-36.0) Red Cell Distribution Width 11.8 % (11.6-14.8) Platelet Count 251 K/UL (150-450) Mean Platelet Volume 6.8 FL (6.5-10.1) Neutrophils (%) (Auto) 72.3 % (45.0-75.0) Lymphocytes (%) (Auto) 19.1 % (20.0-45.0) L Monocytes (%) (Auto) 6.5 % (1.0-10.0) Eosinophils (%) (Auto) 1.4 % (0.0-3.0) Basophils (%) (Auto) 0.7 % (0.0-2.0) Sodium Level 137 MMOL/L (136-145) Potassium Level 4.1 MMOL/L (3.5-5.1) Chloride Level 103 MMOL/L (98-107) Carbon Dioxide Level 27 MMOL/L (21-32) Anion Gap 7 mmol/L (5-15) Blood Urea Nitrogen 11 mg/dL (7-18) Creatinine 0.6 MG/DL (0.55-1.30) Estimat Glomerular Filtration Rate > 60 mL/min (>60) Glucose Level 102 MG/DL (74-106) Calcium Level 9.2 MG/DL (8.5-10.1) Current Medications Medications (Trade) Dose Ordered Sig/Salty Route PRN Reason Start Time Stop Time Status Last Admin Dose Admin Acetaminophen (Tylenol) 500 mg Q4H PRN NG Mild Pain/Temp > 100.5 06/05/18 17:15 06/22/18 13:08 06/06/18 01:03 Albuterol/ Ipratropium (Albuterol/ Ipratropium) 3 ml Q6HRT HHN 06/08/18 19:30 06/13/18 19:29 06/09/18 19:32 Dextrose 1,000 ml @ 50 mls/hr Q20H IV 06/05/18 16:45 07/02/18 17:55 06/09/18 22:00 Dextrose (Dextrose 50%) 25 ml Q30M PRN IV Hypoglycemia 06/08/18 18:15 07/08/18 18:14 Dextrose (Dextrose 50%) 50 ml Q30M PRN IV Hypoglycemia 06/08/18 18:15 07/08/18 18:14 Fluoxetine HCl (PROzac) 40 mg DAILY NG 06/09/18 09:00 07/09/18 08:59 06/10/18 08:12 Heparin Sodium (Porcine) (Heparin 5000 units/ml) 5,000 units EVERY 12 HOURS SUBQ 06/05/18 21:00 06/21/18 20:59 06/10/18 08:15 Insulin Aspart (NovoLOG) BEFORE MEALS AND HS SUBQ 06/08/18 21:00 07/08/18 20:59 06/09/18 06:50 Olanzapine (ZyPREXA) 15 mg BEDTIME NG 06/05/18 21:00 06/28/18 20:59 06/09/18 21:30 Annia Murphy MD Jun 10, 2018 11:48
[2018-06-10 11:53] VITALS: BP 115/67
--- NOTE | 2018-06-10 11:59 | NUR ---
NURSE NOTES: 1200 temp taken by Student Nurse 96.4, rechecked temp 97.7 axillary
--- NOTE | 2018-06-10 12:06 | Pulmonology Progress Note ---
Assessment/Plan Problems: (1) COPD exacerbation (2) Hypercapnic respiratory failure, chronic (3) Hypoxia (4) Benzodiazepine dependence (5) Hypercarbia (6) Schizoaffective disorder Assessment/Plan ASSESSMENT: The patient is a 67-year-old female smoker with history of chronic obstructive pulmonary disease, assisted living resident, hypertension, hyperlipidemia, hypothyroidism, presenting after a fall, respiratory distress, likely exacerbation of chronic obstructive pulmonary disease and urinary tract infection. PROBLEM LIST: 1. Acute on chronic hypercapnic respiratory failure. 2. Chronic obstructive pulmonary disease with acute exacerbation. 3. Urinary tract infection (alpha hemolytic strep) 4. CoNS in blood likely contaminant 5. Leukocytosis secondary to above and steroids 6. Questionable fall. 7. History of psychiatric disorder. 8. Hypertension, hyperlipidemia, hypothyroidism. 9. Mild elevation of D-dimer. 10. Erythrocytosis & likely hemoconcentration 11. Elevated BUN TREATMENT PLAN: 1. Optimize pulmonary hygiene/mobilize as tolerated. 2. BiPAP 12/5 qHS and PRN - ENCOURAGE NOCTURNAL USE (DECLINES) 3. Titrate FiO2 to keep saturations greater than 90% 4. RTC and PRN DuoNeb 5. OBSERVE OFF STEROIDS 6. Observe off Abx per ID 7. Aspiration precautions 8. Monitor volumes and renal function, D/C IVF 9. DVT prophylaxis with heparin subcutaneous. 10. F/U neuro & psych recs, monitor MS, minimize sedative 11. The patient should have outpatient workup including pulmonary function tests Subjective Allergies: Coded Allergies: No Known Allergies (Unverified , 05/22/18) Subjective AFVSS O2 needs stable No cough denies SOB no wheezing no CP no FC Objective Last 24 Hour Vital Signs Date Time Temp Pulse Resp B/P (MAP) Pulse Ox O2 Delivery O2 Flow Rate FiO2 06/10/18 11:58 97.7 06/10/18 11:53 96.4 80 20 115/67 (83) 94 06/10/18 09:00 Nasal Cannula 2.0 06/10/18 08:10 98 Nasal Cannula 2.0 28 06/10/18 08:10 Nasal Cannula 2.0 28 06/10/18 08:10 Nasal Cannula 06/10/18 08:10 Nasal Cannula 06/10/18 08:00 98.4 89 18 117/66 (83) 95 06/10/18 04:00 97.7 78 17 106/72 (83) 92 06/10/18 01:21 Nasal Cannula 06/10/18 01:21 Nasal Cannula 06/10/18 00:00 98.1 75 22 141/68 (92) 97 06/09/18 21:00 Nasal Cannula 2.0 06/09/18 20:00 97.8 79 22 131/64 (86) 94 06/09/18 19:33 Nasal Cannula 2.0 28 06/09/18 19:33 98 Nasal Cannula 2.0 28 06/09/18 19:32 86 18 98 Nasal Cannula 2.0 28 06/09/18 16:00 97.7 79 20 118/79 (92) 93 06/09/18 13:18 89 18 100 Nasal Cannula 2.0 28 06/09/18 13:09 87 18 97 Nasal Cannula 2.0 28 Intake and Output 06/09/18 06/10/18 18:59 06:59 Intake Total 1440 ml 860 ml Output Total 600 ml Balance 840 ml 860 ml Intake Oral 840 ml 360 ml IV Total 600 ml 500 ml Output Urine Total 600 ml # Voids 3 General Appearance: WD/WN, no acute distress HEENT: normocephalic, atraumatic, anicteric, mucous membranes moist Respiratory/Chest: chest wall non-tender, lungs clear - but distant, normal breath sounds, no respiratory distress, no accessory muscle use Cardiovascular: normal peripheral pulses, normal rate, regular rhythm Abdomen: normal bowel sounds, soft, non tender, no organomegaly, non distended , no mass Extremities: no cyanosis, no clubbing, no edema Laboratory Tests 06/10/18 05:40: White Blood Count 11.1H, Red Blood Count 4.89, Hemoglobin 15.4, Hematocrit 44.6 , Mean Corpuscular Volume 91, Mean Corpuscular Hemoglobin 31.5H, Mean Corpuscular Hemoglobin Concent 34.5, Red Cell Distribution Width 11.8, Platelet Count 251, Mean Platelet Volume 6.8, Neutrophils (%) (Auto) 72.3, Lymphocytes (% ) (Auto) 19.1L, Monocytes (%) (Auto) 6.5, Eosinophils (%) (Auto) 1.4, Basophils (%) (Auto) 0.7, Sodium Level 137, Potassium Level 4.1, Chloride Level 103, Carbon Dioxide Level 27, Anion Gap 7, Blood Urea Nitrogen 11, Creatinine 0.6, Estimat Glomerular Filtration Rate > 60, Glucose Level 102, Calcium Level 9.2 Current Medications Medications (Trade) Dose Ordered Sig/Salty Route PRN Reason Start Time Stop Time Status Last Admin Dose Admin Acetaminophen (Tylenol) 500 mg Q4H PRN NG Mild Pain/Temp > 100.5 06/05/18 17:15 06/22/18 13:08 06/06/18 01:03 Albuterol/ Ipratropium (Albuterol/ Ipratropium) 3 ml Q6HRT HHN 06/08/18 19:30 06/13/18 19:29 06/09/18 19:32 Dextrose 1,000 ml @ 50 mls/hr Q20H IV 06/05/18 16:45 07/02/18 17:55 06/09/18 22:00 Dextrose (Dextrose 50%) 25 ml Q30M PRN IV Hypoglycemia 06/08/18 18:15 07/08/18 18:14 Dextrose (Dextrose 50%) 50 ml Q30M PRN IV Hypoglycemia 06/08/18 18:15 07/08/18 18:14 Fluoxetine HCl (PROzac) 40 mg DAILY NG 06/09/18 09:00 07/09/18 08:59 06/10/18 08:12 Heparin Sodium (Porcine) (Heparin 5000 units/ml) 5,000 units EVERY 12 HOURS SUBQ 06/05/18 21:00 06/21/18 20:59 06/10/18 08:15 Insulin Aspart (NovoLOG) BEFORE MEALS AND HS SUBQ 06/08/18 21:00 07/08/18 20:59 06/09/18 06:50 Olanzapine (ZyPREXA) 15 mg BEDTIME NG 06/05/18 21:00 06/28/18 20:59 06/09/18 21:30 Rory Membreno MD Jun 10, 2018 12:06
--- NOTE | 2018-06-10 14:20 | Neurology Progress Note ---
Interim History Interim History Interim History Ms. Whitfield feels well. She is eating well. She is not short of breath She however is on nasal O2. She is awake, alert and bright. She feels that her mind is clear. She feels stronger. She sat in a chair for few minutes yesterday. She is not delusional. She denies any new neurologic symptoms. Review of Systems Neuro Review of Systems Benign. Objective Physical Exam Last Vital Signs Date Time Temp Pulse Resp B/P (MAP) Pulse Ox O2 Delivery O2 Flow Rate FiO2 06/10/18 14:03 85 18 100 Nasal Cannula 2.0 28 06/10/18 11:58 97.7 06/10/18 11:53 115/67 (83) Laboratory Tests Test 06/10/18 05:40 White Blood Count 11.1 K/UL (4.8-10.8) H Red Blood Count 4.89 M/UL (4.20-5.40) Hemoglobin 15.4 G/DL (12.0-16.0) Hematocrit 44.6 % (37.0-47.0) Mean Corpuscular Volume 91 FL (80-99) Mean Corpuscular Hemoglobin 31.5 PG (27.0-31.0) H Mean Corpuscular Hemoglobin Concent 34.5 G/DL (32.0-36.0) Red Cell Distribution Width 11.8 % (11.6-14.8) Platelet Count 251 K/UL (150-450) Mean Platelet Volume 6.8 FL (6.5-10.1) Neutrophils (%) (Auto) 72.3 % (45.0-75.0) Lymphocytes (%) (Auto) 19.1 % (20.0-45.0) L Monocytes (%) (Auto) 6.5 % (1.0-10.0) Eosinophils (%) (Auto) 1.4 % (0.0-3.0) Basophils (%) (Auto) 0.7 % (0.0-2.0) Sodium Level 137 MMOL/L (136-145) Potassium Level 4.1 MMOL/L (3.5-5.1) Chloride Level 103 MMOL/L (98-107) Carbon Dioxide Level 27 MMOL/L (21-32) Anion Gap 7 mmol/L (5-15) Blood Urea Nitrogen 11 mg/dL (7-18) Creatinine 0.6 MG/DL (0.55-1.30) Estimat Glomerular Filtration Rate > 60 mL/min (>60) Glucose Level 102 MG/DL (74-106) Calcium Level 9.2 MG/DL (8.5-10.1) Neurologic Exam Objective PHYSICAL EXAMINATION: GENERAL: She is a well-developed, well-nourished, pleasant lady, lying in bed. HEAD: Normocephalic and atraumatic. EENT: Examination benign NECK: No neck rigidity was observed. NEUROLOGICAL EXAMINATION: MENTAL STATUS EXAMINATION: She was awake and alert. She was oriented to self, [facility] and June 10, 2018. She was able to recall 3/3 words immediately, after 1 minute and after 3 minutes. She was able to remember president Theodora through [employer] with hints. Her mathematical skills were impaired. Her visuospatial function was also impaired. SPEECH: She had a no dysarthria. LANGUAGE: She had a mild anomia for low-frequency words. CRANIAL NERVE EXAMINATION: II: The visual beltran were intact on confrontation testing. III, IV & : The external ocular movements were full and the pupils 3 mm in diameter, equal, round, regular, and reactive to light. V: She had normal facial sensations, and the temporales, masseters, and pterygoids functioned normally. VII: She had normal facial expressions and no facial asymmetry. VIII: She was able to hear well bilaterally and had no nystagmus. IX: The palate moved symmetrically on phonation. X: She had no hoarseness of voice. XI: The sternocleidomastoids and trapezii functioned normally. XII: The tongue was in the midline without any fasciculations or atrophy. MOTOR SYSTEM: The tone was normal in all four extremities. Examination of muscle mass revealed no focal wasting. Examination of power revealed G 5/5 power in the upper extremities. She also had G 5/5 in the lower extremities except for G 4+/5 in the iliopsoas. SENSORY EXAMINATION: She had intact sensations to light touch. COORDINATION: She performed well on [id number] testing. REFLEXES: 1+ and bilaterally symmetrical at the biceps, triceps, brachioradialis, and knees, 0 at both ankles. The plantar responses were flexor bilaterally. STANCE: Could not be tested. GAIT: Could not be tested. Impression/Recommendations Diagnostic Impression 1. Ms Leigh Ann Whitfield is a 67-year-old, right-handed, lady, who does have a past history of hypertension, dyslipidemia, chronic obstructive pulmonary disease, hypothyroidism, schizoaffective disorder, and recent falls, who was hospitalized on 05/22/2018 for an altered mental state and a fall at her board and alf. She was found to be hypoxic, hypercapnic, and had a significant leukocytosis. Since she has been in the hospital, she has improved. 2. She feels well. She is eating well. She is not short of breath. She however is on nasal O2. She is awake, alert and bright. She feels that her mind is clear. She feels 3. On neurological examination, at this time, she is fully oriented. Has problems with visuospatial function and higher cognitive function. Has a mild anomia, has proximal lower extremities weakness, and has globally diminished deep tendon reflexes. 4. Laboratory data on my initial evaluation revealed that she had a significant leukocytosis with a WBC count of 19,700. Her chemistry panel revealed that her uric acid level was elevated at 8.2, magnesium was low at 1.6. ProBNP that was elevated at 186, albumin was low at 2.5. Her B12 level was normal at 924. Her folate level was normal at 40.6. Her TSH was normal at 1.92 with a free T4 of 1.13. The Hemoglobin A1c was at 6%. Latest arterial blood gas revealed a pH at 7.37, pCO2 at 62, and pO2 at 56. Her urinalysis revealed 1+ leukocyte esterase, 0-2 red blood cells, and 2-4 white blood cells per high-power field. 5. Further laboratory tests have revealed a minimally elevated ammonia at 34. 6. The last ABG done on 06/02/18 revealed a pCO2 at 44 but a low pO2 at 62. 7. Her leukocytosis has improved with a WBC count of 15,500 on 06/02/18. Her HB is still elevated at 16.3G 8. The CT scan of the brain without contrast revealed atrophy and some deep white matter changes, but no acute pathology. 9. The EGG done on 05/24/18 was normal in the awake and drowsy states. 10. The patient's history, neurological examination, laboratory data, and imaging studies are most compatible with a toxic metabolic encephalopathy related to the hypoxia, hypercapnia, and an infectious process. Her encephalopathy continues to improve. Recommendations 1. Continue present management. 2. Aggressive treatment of the patient's respiratory dysfunction as per Dr. Membreno. 3. Aggressive treatment of the patient's infectious process as per Dr. Cohen. 4. Correction of fluid and electrolyte status. 5. Mobilize with PT/OT. 6. Observe. Fransico Bolton M.D., M.S.P.H. Fransico Bolton MD Jun 10, 2018 14:20
--- NOTE | 2018-06-10 14:26 | NUR ---
CASE MANAGEMENT: DCPNOTE UPON DISCHARGE PATIENT WILL TRANSFER BACK TO [facility] [phone]
--- NOTE | 2018-06-10 14:29 | Cardiac Electrophysiology PN ---
Assessment/Plan Assessment/Plan 1. Respiratory failure due to COPD. On NC and Abx per Dr. Membreno Ruled out for DC. EF 65%. No Significant CHF. 2. Elevated white count, likely pneumonia Antibiotic per Dr. Cohen. 3. History of psychosis. 4. Sinus tach due to resp failure and PNA improved DW RN Subjective Subjective On BIPA at night and nasal cannula during the day and Abx. Tolerating puree feeding Objective Last 24 Hour Vital Signs Date Time Temp Pulse Resp B/P (MAP) Pulse Ox O2 Delivery O2 Flow Rate FiO2 06/10/18 14:03 85 18 100 Nasal Cannula 2.0 28 06/10/18 13:55 79 18 96 Nasal Cannula 2.0 28 06/10/18 11:58 97.7 06/10/18 11:53 96.4 80 20 115/67 (83) 94 06/10/18 09:00 Nasal Cannula 2.0 06/10/18 08:10 98 Nasal Cannula 2.0 28 06/10/18 08:10 Nasal Cannula 2.0 28 06/10/18 08:10 Nasal Cannula 06/10/18 08:10 Nasal Cannula 06/10/18 08:00 98.4 89 18 117/66 (83) 95 06/10/18 04:00 97.7 78 17 106/72 (83) 92 06/10/18 01:21 Nasal Cannula 06/10/18 01:21 Nasal Cannula 06/10/18 00:00 98.1 75 22 141/68 (92) 97 06/09/18 21:00 Nasal Cannula 2.0 06/09/18 20:00 97.8 79 22 131/64 (86) 94 06/09/18 19:33 Nasal Cannula 2.0 28 06/09/18 19:33 98 Nasal Cannula 2.0 28 06/09/18 19:32 86 18 98 Nasal Cannula 2.0 28 06/09/18 16:00 97.7 79 20 118/79 (92) 93 Intake and Output 06/09/18 06/10/18 19:00 07:00 Intake Total 1440 ml 810 ml Output Total 600 ml Balance 840 ml 810 ml Intake Oral 840 ml 360 ml IV Total 600 ml 450 ml Output Urine Total 600 ml # Voids 3 Laboratory Tests Test 06/10/18 05:40 White Blood Count 11.1 K/UL (4.8-10.8) H Red Blood Count 4.89 M/UL (4.20-5.40) Hemoglobin 15.4 G/DL (12.0-16.0) Hematocrit 44.6 % (37.0-47.0) Mean Corpuscular Volume 91 FL (80-99) Mean Corpuscular Hemoglobin 31.5 PG (27.0-31.0) H Mean Corpuscular Hemoglobin Concent 34.5 G/DL (32.0-36.0) Red Cell Distribution Width 11.8 % (11.6-14.8) Platelet Count 251 K/UL (150-450) Mean Platelet Volume 6.8 FL (6.5-10.1) Neutrophils (%) (Auto) 72.3 % (45.0-75.0) Lymphocytes (%) (Auto) 19.1 % (20.0-45.0) L Monocytes (%) (Auto) 6.5 % (1.0-10.0) Eosinophils (%) (Auto) 1.4 % (0.0-3.0) Basophils (%) (Auto) 0.7 % (0.0-2.0) Sodium Level 137 MMOL/L (136-145) Potassium Level 4.1 MMOL/L (3.5-5.1) Chloride Level 103 MMOL/L (98-107) Carbon Dioxide Level 27 MMOL/L (21-32) Anion Gap 7 mmol/L (5-15) Blood Urea Nitrogen 11 mg/dL (7-18) Creatinine 0.6 MG/DL (0.55-1.30) Estimat Glomerular Filtration Rate > 60 mL/min (>60) Glucose Level 102 MG/DL (74-106) Calcium Level 9.2 MG/DL (8.5-10.1) Objective HEAD AND NECK: No JVD on N/C LUNGS: Coarse rhonchi. CARDIOVASCULAR: Regular S1 and S2 no M/G/R ABDOMEN: Soft. EXTREMITIES: No pitting edema. Zane Ocampo MD Jun 10, 2018 14:29
--- NOTE | 2018-06-10 14:56 | General Progress Note ---
Assessment/Plan Problem List: (1) Hypoxia ICD Codes: R09.02 - Hypoxemia SNOMED: 876731350 (2) COPD exacerbation ICD Codes: J44.1 - Chronic obstructive pulmonary disease with (acute) exacerbation SNOMED: 912665828 (3) Hypercapnic respiratory failure, chronic ICD Codes: J96.12 - Chronic respiratory failure with hypercapnia SNOMED: 493597606 (4) Hypoxemia ICD Codes: R09.02 - Hypoxemia SNOMED: 675286064 (5) Benzodiazepine dependence ICD Codes: F13.20 - Sedative, hypnotic or anxiolytic dependence, uncomplicated SNOMED: 416929758 (6) Hypoalbuminemia ICD Codes: E88.09 - Other disorders of plasma-protein metabolism, not elsewhere classified SNOMED: 968200252 Status: progressing Assessment/Plan no wheezing reviewed chart and meds and labs azotemia improving copd exacerbation improving still has poor appetite Subjective ROS Limited/Unobtainable: Yes Allergies: Coded Allergies: No Known Allergies (Unverified , 05/22/18) Subjective lehtargic sob Objective Last 24 Hour Vital Signs Date Time Temp Pulse Resp B/P (MAP) Pulse Ox O2 Delivery O2 Flow Rate FiO2 06/10/18 14:03 85 18 100 Nasal Cannula 2.0 28 06/10/18 13:55 79 18 96 Nasal Cannula 2.0 28 06/10/18 11:58 97.7 06/10/18 11:53 96.4 80 20 115/67 (83) 94 06/10/18 09:00 Nasal Cannula 2.0 06/10/18 08:10 98 Nasal Cannula 2.0 28 06/10/18 08:10 Nasal Cannula 2.0 28 06/10/18 08:10 Nasal Cannula 06/10/18 08:10 Nasal Cannula 06/10/18 08:00 98.4 89 18 117/66 (83) 95 06/10/18 04:00 97.7 78 17 106/72 (83) 92 06/10/18 01:21 Nasal Cannula 06/10/18 01:21 Nasal Cannula 06/10/18 00:00 98.1 75 22 141/68 (92) 97 06/09/18 21:00 Nasal Cannula 2.0 06/09/18 20:00 97.8 79 22 131/64 (86) 94 06/09/18 19:33 Nasal Cannula 2.0 28 06/09/18 19:33 98 Nasal Cannula 2.0 28 06/09/18 19:32 86 18 98 Nasal Cannula 2.0 28 06/09/18 16:00 97.7 79 20 118/79 (92) 93 Intake and Output 06/09/18 06/10/18 19:00 07:00 Intake Total 1440 ml 810 ml Output Total 600 ml Balance 840 ml 810 ml Intake Oral 840 ml 360 ml IV Total 600 ml 450 ml Output Urine Total 600 ml # Voids 3 Laboratory Tests 06/10/18 05:40: White Blood Count 11.1H, Red Blood Count 4.89, Hemoglobin 15.4, Hematocrit 44.6 , Mean Corpuscular Volume 91, Mean Corpuscular Hemoglobin 31.5H, Mean Corpuscular Hemoglobin Concent 34.5, Red Cell Distribution Width 11.8, Platelet Count 251, Mean Platelet Volume 6.8, Neutrophils (%) (Auto) 72.3, Lymphocytes (% ) (Auto) 19.1L, Monocytes (%) (Auto) 6.5, Eosinophils (%) (Auto) 1.4, Basophils (%) (Auto) 0.7, Sodium Level 137, Potassium Level 4.1, Chloride Level 103, Carbon Dioxide Level 27, Anion Gap 7, Blood Urea Nitrogen 11, Creatinine 0.6, Estimat Glomerular Filtration Rate > 60, Glucose Level 102, Calcium Level 9.2 Height (Feet): 5 Height (Inches): 5.00 Weight (Pounds): 172 Neck: supple Cardiovascular: normal rate Respiratory/Chest: lungs clear Abdomen: soft Margot Dutta MD Jun 10, 2018 14:56
--- NOTE | 2018-06-10 15:10 | Nephrology Progress Note ---
Assessment/Plan Problem List: (1) Proteinuria (2) Hypoalbuminemia (3) COPD exacerbation (4) Schizoaffective disorder (5) Azotemia Assessment rising BUN and Hgb resolved admitted with exacerbation COPD and Hypoxia High WBCs : UTI , Pneumonia Proteinuria and HypoAlbuminemia Plan Pulmonary support Antibiotics 24 h urine proteins CAN NOT BE COLLECTED UNLESS FOLEY_ WILL DEFER 2D echo Left ventricular ejection fraction grossly estimated to be 65 %. optimize cardiac status ? DC Subjective ROS Limited/Unobtainable: No Constitutional: Reports: malaise Objective Objective Last 24 Hour Vital Signs Date Time Temp Pulse Resp B/P (MAP) Pulse Ox O2 Delivery O2 Flow Rate FiO2 06/10/18 14:03 85 18 100 Nasal Cannula 2.0 28 06/10/18 13:55 79 18 96 Nasal Cannula 2.0 28 06/10/18 11:58 97.7 06/10/18 11:53 96.4 80 20 115/67 (83) 94 06/10/18 09:00 Nasal Cannula 2.0 06/10/18 08:10 98 Nasal Cannula 2.0 28 06/10/18 08:10 Nasal Cannula 2.0 28 06/10/18 08:10 Nasal Cannula 06/10/18 08:10 Nasal Cannula 06/10/18 08:00 98.4 89 18 117/66 (83) 95 06/10/18 04:00 97.7 78 17 106/72 (83) 92 06/10/18 01:21 Nasal Cannula 06/10/18 01:21 Nasal Cannula 06/10/18 00:00 98.1 75 22 141/68 (92) 97 06/09/18 21:00 Nasal Cannula 2.0 06/09/18 20:00 97.8 79 22 131/64 (86) 94 06/09/18 19:33 Nasal Cannula 2.0 28 06/09/18 19:33 98 Nasal Cannula 2.0 28 06/09/18 19:32 86 18 98 Nasal Cannula 2.0 28 06/09/18 16:00 97.7 79 20 118/79 (92) 93 Intake and Output 06/09/18 06/10/18 19:00 07:00 Intake Total 1440 ml 810 ml Output Total 600 ml Balance 840 ml 810 ml Intake Oral 840 ml 360 ml IV Total 600 ml 450 ml Output Urine Total 600 ml # Voids 3 Laboratory Tests 2/23/19 05:40: White Blood Count 11.1H, Red Blood Count 4.89, Hemoglobin 15.4, Hematocrit 44.6 , Mean Corpuscular Volume 91, Mean Corpuscular Hemoglobin 31.5H, Mean Corpuscular Hemoglobin Concent 34.5, Red Cell Distribution Width 11.8, Platelet Count 251, Mean Platelet Volume 6.8, Neutrophils (%) (Auto) 72.3, Lymphocytes (% ) (Auto) 19.1L, Monocytes (%) (Auto) 6.5, Eosinophils (%) (Auto) 1.4, Basophils (%) (Auto) 0.7, Sodium Level 137, Potassium Level 4.1, Chloride Level 103, Carbon Dioxide Level 27, Anion Gap 7, Blood Urea Nitrogen 11, Creatinine 0.6, Estimat Glomerular Filtration Rate > 60, Glucose Level 102, Calcium Level 9.2 Height (Feet): 5 Height (Inches): 5.00 Weight (Pounds): 172 General Appearance: no apparent distress Cardiovascular: normal rate Respiratory/Chest: decreased breath sounds Abdomen: distended Objective no change Seamus Morfin MD Jun 10, 2018 15:10
[2018-06-10 16:00] VITALS: BP 127/76
--- NOTE | 2018-06-10 19:14 | NUR ---
HAND-OFF: Report given to DIMITRY Gomez.
--- NOTE | 2018-06-10 19:30 | NUR ---
NURSE NOTES: RECEIVED PATIENT LYING IN BED, APPEAR TO BE ASLEEP, EASILY AWAKENED, DENIES PAIN, TOLERATING 02 VIA NASAL CANULA, NO SIGNS AND SYMPTOMS OF ACUTE CARDIO RESPIRATORY DISTRESS/SHORTNESS OF BREATH, DENIES CHEST PAIN, NO PERIPHERAL EDEMA NOTED. NO REPORT OF GI DISCOMFORT, NO N/V/D, BOWEL SOUNDS AUDIBLE. SIDE RAILS UP X3/BED IN LOWEST POSITION FOR SAFETY. CALL LIGHT WITHIN REACH. FREQUENT ROUNDING FOR SAFETY/NEEDS. NAD.
[2018-06-10 20:00] VITALS: BP 108/69
--- NOTE | 2018-06-10 21:49 | NUR ---
NURSE NOTES: BLOOD GLUCOSE MONITORED VIA GLUCOMETER WITH RESULT 96MG/DL, ASSESSED FOR SIGNS AND SYMPTOMS OF HYPOGLYCEMIA, NONE NOTED. NO INSULIN COVERAGE.
--- NOTE | 2018-06-10 22:34 | NUR ---
NURSE NOTES: ASLEEP ON ROUNDS, NO DISTRESS NOTED.
[2018-06-11] VITALS: BP 136/74
[2018-06-11] MEDS: Albuterol/Ipratropium 3ml neb HHN SCH ×4 (00:07→20:29)
[2018-06-11 04:00] VITALS: BP 118/71
--- NOTE | 2018-06-11 06:08 | NUR ---
NURSE NOTES: BLOOD GLUCOSE LEVEL MONITORED VIA GLUCOMETER WITH RESULT 90MG/DL, ASSESSED FOR SIGNS AND SYMPTOMS OF HYPOGLYCEMIA, NONE NOTED. ORANGE JUICE GIVEN, TOLERATED WELL. NAD.
[2018-06-11] MEDS: NovoLOG Insulin Flexpen SUBQ SCH ×4 (06:17→21:00)
[2018-06-11 08:00] VITALS: BP 127/70
--- NOTE | 2018-06-11 08:30 | NUR ---
NURSE NOTES: RECEIVED PATIENT A/A/OX4, IRRITABLE. NO ACUTE RESP DISTRESS. C/O CONSTIPATION, WILL CONVEY TO MD. ON O2 2L VIA NC. SIDERAILS ARE UP X3, KEEP BED IN THE LOWEST POSITION, CALL LIGHT IS WITHIN REACH. WILL CONT TO MONITOR.
[2018-06-11] MEDS: Heparin 5000 units/ml inj SUBQ SCH ×2 (08:37→20:23)
--- NOTE | 2018-06-11 10:12 | NUR ---
NURSE NOTES: Received patient awake, receiving breathing treatment. Denies any pain at this time. All needs attended. call light made within reach. Will cont to monitor patient .
--- NOTE | 2018-06-11 10:59 | General Progress Note ---
Assessment/Plan Assessment/Plan (1) S/p fall (2) COPD Exacerbation (3) OA Patient to be continued on Tylenol D/w Dr. Garcia and he concurred. Subjective Date patient seen: Jun 11, 2018 Time patient seen: 10:15 - am Allergies: Coded Allergies: No Known Allergies (Unverified , 05/22/18) Subjective Constitutional: Reports: weakness Neurologic/Psychiatric: Reports: weakness Allergies: Subjective She is in bed and has no signs of pain or distress. Objective Last 24 Hour Vital Signs Date Time Temp Pulse Resp B/P (MAP) Pulse Ox O2 Delivery O2 Flow Rate FiO2 06/11/18 09:00 Nasal Cannula 2.0 06/11/18 08:00 97.6 98 16 127/70 (89) 93 06/11/18 07:29 97 Nasal Cannula 2.0 28 06/11/18 07:29 74 18 97 Nasal Cannula 2.0 28 06/11/18 07:29 Nasal Cannula 2.0 28 06/11/18 07:29 74 18 98 Nasal Cannula 2.0 28 06/11/18 04:00 98.1 78 17 118/71 (87) 96 06/11/18 00:08 Nasal Cannula 06/11/18 00:08 Nasal Cannula 06/11/18 00:00 97.7 85 18 136/74 (94) 94 06/10/18 20:35 Nasal Cannula 2.0 06/10/18 20:00 97.6 87 19 108/69 (82) 96 06/10/18 19:43 84 18 98 Nasal Cannula 2.0 28 06/10/18 19:30 Nasal Cannula 2.0 28 06/10/18 19:30 95 Nasal Cannula 2.0 28 06/10/18 19:27 71 18 95 Nasal Cannula 2.0 28 06/10/18 16:00 98.0 72 18 127/76 (93) 98 06/10/18 14:03 85 18 100 Nasal Cannula 2.0 28 06/10/18 13:55 79 18 96 Nasal Cannula 2.0 28 06/10/18 11:58 97.7 06/10/18 11:53 96.4 80 20 115/67 (83) 94 Intake and Output 06/10/18 06/11/18 18:59 06:59 Intake Total 240 ml Balance 240 ml Intake Oral 240 ml # Voids 3 2 Height (Feet): 5 Height (Inches): 5.00 Weight (Pounds): 172 Objective Neck: non-tender, supple Cardiovascular: normal rate, regular rhythm Respiratory/Chest: decreased breath sounds Abdomen: non tender, soft Extremities: non-tender Edema: trace edema Skin: warm/dry Anjum Dumont Jun 11, 2018 10:59
--- NOTE | 2018-06-11 11:48 | Pulmonology Progress Note ---
Assessment/Plan Problems: (1) COPD exacerbation (2) Hypercapnic respiratory failure, chronic (3) Hypoxia (4) Benzodiazepine dependence (5) Hypercarbia (6) Schizoaffective disorder Assessment/Plan ASSESSMENT: The patient is a 67-year-old female smoker with history of chronic obstructive pulmonary disease, assisted living resident, hypertension, hyperlipidemia, hypothyroidism, presenting after a fall, respiratory distress, likely exacerbation of chronic obstructive pulmonary disease and urinary tract infection. PROBLEM LIST: 1. Acute on chronic hypercapnic respiratory failure. 2. Chronic obstructive pulmonary disease with acute exacerbation. 3. Urinary tract infection (alpha hemolytic strep) 4. CoNS in blood likely contaminant 5. Leukocytosis secondary to above and steroids 6. Questionable fall. 7. History of psychiatric disorder. 8. Hypertension, hyperlipidemia, hypothyroidism. 9. Mild elevation of D-dimer. 10. Erythrocytosis & likely hemoconcentration 11. Elevated BUN TREATMENT PLAN: 1. Optimize pulmonary hygiene/mobilize as tolerated. 2. BiPAP 12/5 qHS and PRN - ENCOURAGE NOCTURNAL USE (DECLINES) 3. Titrate FiO2 to keep saturations greater than 90% 4. RTC and PRN DuoNeb 5. OBSERVE OFF STEROIDS 6. Observe off Abx per ID 7. Aspiration precautions 8. Monitor volumes and renal function, SLIV 9. DVT prophylaxis with heparin subcutaneous. 10. Bowel regimen 11. The patient should have outpatient workup including pulmonary function tests Subjective Allergies: Coded Allergies: No Known Allergies (Unverified , 05/22/18) Subjective AFVSS O2 needs stable No cough denies SOB no wheezing no CP no FC Constipated Objective Last 24 Hour Vital Signs Date Time Temp Pulse Resp B/P (MAP) Pulse Ox O2 Delivery O2 Flow Rate FiO2 06/11/18 09:00 Nasal Cannula 2.0 06/11/18 08:00 97.6 98 16 127/70 (89) 93 06/11/18 07:29 97 Nasal Cannula 2.0 28 06/11/18 07:29 74 18 97 Nasal Cannula 2.0 28 06/11/18 07:29 Nasal Cannula 2.0 28 06/11/18 07:29 74 18 98 Nasal Cannula 2.0 28 06/11/18 04:00 98.1 78 17 118/71 (87) 96 06/11/18 00:08 Nasal Cannula 06/11/18 00:08 Nasal Cannula 06/11/18 00:00 97.7 85 18 136/74 (94) 94 06/10/18 20:35 Nasal Cannula 2.0 06/10/18 20:00 97.6 87 19 108/69 (82) 96 06/10/18 19:43 84 18 98 Nasal Cannula 2.0 28 06/10/18 19:30 Nasal Cannula 2.0 28 06/10/18 19:30 95 Nasal Cannula 2.0 28 06/10/18 19:27 71 18 95 Nasal Cannula 2.0 28 06/10/18 16:00 98.0 72 18 127/76 (93) 98 06/10/18 14:03 85 18 100 Nasal Cannula 2.0 28 06/10/18 13:55 79 18 96 Nasal Cannula 2.0 28 06/10/18 11:58 97.7 06/10/18 11:53 96.4 80 20 115/67 (83) 94 Intake and Output 06/10/18 06/11/18 18:59 06:59 Intake Total 240 ml Balance 240 ml Intake Oral 240 ml # Voids 3 2 General Appearance: WD/WN, no acute distress HEENT: normocephalic, atraumatic, anicteric, mucous membranes moist Respiratory/Chest: chest wall non-tender, lungs clear - but distant, normal breath sounds, no respiratory distress, no accessory muscle use Cardiovascular: normal peripheral pulses, normal rate, regular rhythm Abdomen: normal bowel sounds, soft, non tender, no organomegaly, non distended , no mass Extremities: no cyanosis, no clubbing, no edema Current Medications Medications (Trade) Dose Ordered Sig/Salty Route PRN Reason Start Time Stop Time Status Last Admin Dose Admin Acetaminophen (Tylenol) 500 mg Q4H PRN NG Mild Pain/Temp > 100.5 06/05/18 17:15 06/22/18 13:08 06/06/18 01:03 Albuterol/ Ipratropium (Albuterol/ Ipratropium) 3 ml Q6HRT HHN 06/08/18 19:30 06/13/18 19:29 06/11/18 07:48 Dextrose (Dextrose 50%) 25 ml Q30M PRN IV Hypoglycemia 06/08/18 18:15 07/08/18 18:14 Dextrose (Dextrose 50%) 50 ml Q30M PRN IV Hypoglycemia 06/08/18 18:15 07/08/18 18:14 Fluoxetine HCl (PROzac) 40 mg DAILY NG 06/09/18 09:00 07/09/18 08:59 06/11/18 08:31 Heparin Sodium (Porcine) (Heparin 5000 units/ml) 5,000 units EVERY 12 HOURS SUBQ 06/05/18 21:00 06/21/18 20:59 06/11/18 08:37 Insulin Aspart (NovoLOG) BEFORE MEALS AND HS SUBQ 06/08/18 21:00 07/08/18 20:59 06/10/18 16:58 Olanzapine (ZyPREXA) 15 mg BEDTIME NG 06/05/18 21:00 06/28/18 20:59 06/10/18 20:50 Rory Membreno MD Jun 11, 2018 11:48
[2018-06-11] MEDS ORDERED: Miralax 17gm pkt ORAL PRN (12:00)
[2018-06-11 12:01] VITALS: BP 114/56
--- NOTE | 2018-06-11 12:03 | Infectious Diseases Prog Note ---
Assessment/Plan Assessment/Plan A; Chronic obstructive pulmonary disease exacerbation, leukocytosis; improving schizoaffective disorder, hypothyroidism, hyperlipidemia, hypertension. Positive blood culture with CoANS P: Observe off antibiotic F/U CBC Subjective ROS Limited/Unobtainable: Yes Respiratory: Reports: no symptoms Gastrointestinal/Abdominal: Reports: bloating Genitourinary: Reports: no symptoms Allergies: Coded Allergies: No Known Allergies (Unverified , 05/22/18) Objective Vital Signs Last 24 Hour Vital Signs Date Time Temp Pulse Resp B/P (MAP) Pulse Ox O2 Delivery O2 Flow Rate FiO2 06/11/18 09:00 Nasal Cannula 2.0 06/11/18 08:00 97.6 98 16 127/70 (89) 93 06/11/18 07:29 97 Nasal Cannula 2.0 28 06/11/18 07:29 74 18 97 Nasal Cannula 2.0 28 06/11/18 07:29 Nasal Cannula 2.0 28 06/11/18 07:29 74 18 98 Nasal Cannula 2.0 28 06/11/18 04:00 98.1 78 17 118/71 (87) 96 06/11/18 00:08 Nasal Cannula 06/11/18 00:08 Nasal Cannula 06/11/18 00:00 97.7 85 18 136/74 (94) 94 06/10/18 20:35 Nasal Cannula 2.0 06/10/18 20:00 97.6 87 19 108/69 (82) 96 06/10/18 19:43 84 18 98 Nasal Cannula 2.0 28 06/10/18 19:30 Nasal Cannula 2.0 28 06/10/18 19:30 95 Nasal Cannula 2.0 28 06/10/18 19:27 71 18 95 Nasal Cannula 2.0 28 06/10/18 16:00 98.0 72 18 127/76 (93) 98 06/10/18 14:03 85 18 100 Nasal Cannula 2.0 28 06/10/18 13:55 79 18 96 Nasal Cannula 2.0 28 Height (Feet): 5 Height (Inches): 5.00 Weight (Pounds): 172 General Appearance: no acute distress HEENT: mucous membranes moist Respiratory/Chest: lungs clear Cardiovascular: normal rate Abdomen: soft, non tender Extremities: no edema Neurologic/Psychiatric: alert, responsive Current Medications Medications (Trade) Dose Ordered Sig/Salty Route PRN Reason Start Time Stop Time Status Last Admin Dose Admin Acetaminophen (Tylenol) 500 mg Q4H PRN NG Mild Pain/Temp > 100.5 06/05/18 17:15 06/22/18 13:08 06/06/18 01:03 Albuterol/ Ipratropium (Albuterol/ Ipratropium) 3 ml Q6HRT HHN 06/08/18 19:30 06/13/18 19:29 06/11/18 07:48 Dextrose (Dextrose 50%) 25 ml Q30M PRN IV Hypoglycemia 06/08/18 18:15 07/08/18 18:14 Dextrose (Dextrose 50%) 50 ml Q30M PRN IV Hypoglycemia 06/08/18 18:15 07/08/18 18:14 Fluoxetine HCl (PROzac) 40 mg DAILY NG 06/09/18 09:00 07/09/18 08:59 06/11/18 08:31 Heparin Sodium (Porcine) (Heparin 5000 units/ml) 5,000 units EVERY 12 HOURS SUBQ 06/05/18 21:00 06/21/18 20:59 06/11/18 08:37 Insulin Aspart (NovoLOG) BEFORE MEALS AND HS SUBQ 06/08/18 21:00 07/08/18 20:59 06/10/18 16:58 Olanzapine (ZyPREXA) 15 mg BEDTIME NG 06/05/18 21:00 06/28/18 20:59 06/10/18 20:50 Polyethylene Glycol (Miralax) 17 gm DAILY PRN ORAL Constipation 06/11/18 12:00 07/11/18 11:59 UNV Senna/Docusate Sodium (Milagro-Colace) 1 tab TWICE A DAY ORAL 06/11/18 18:00 07/11/18 17:59 Migel Bailey MD Jun 11, 2018 12:02
--- NOTE | 2018-06-11 12:51 | General Progress Note ---
Assessment/Plan Problem List: (1) Hypoxia ICD Codes: R09.02 - Hypoxemia SNOMED: 433692560 (2) COPD exacerbation ICD Codes: J44.1 - Chronic obstructive pulmonary disease with (acute) exacerbation SNOMED: 257708476 (3) Hypercapnic respiratory failure, chronic ICD Codes: J96.12 - Chronic respiratory failure with hypercapnia SNOMED: 611164905 (4) Hypoxemia ICD Codes: R09.02 - Hypoxemia SNOMED: 957598940 (5) Benzodiazepine dependence ICD Codes: F13.20 - Sedative, hypnotic or anxiolytic dependence, uncomplicated SNOMED: 763450459 (6) Hypoalbuminemia ICD Codes: E88.09 - Other disorders of plasma-protein metabolism, not elsewhere classified SNOMED: 479810816 Status: progressing Assessment/Plan no acute events no fever azotemia improving copd exacerbation improving still has poor appetite Subjective ROS Limited/Unobtainable: Yes Allergies: Coded Allergies: No Known Allergies (Unverified , 05/22/18) Subjective lehtargic sob Objective Last 24 Hour Vital Signs Date Time Temp Pulse Resp B/P (MAP) Pulse Ox O2 Delivery O2 Flow Rate FiO2 06/11/18 12:01 96.9 81 16 114/56 (75) 97 06/11/18 09:00 Nasal Cannula 2.0 06/11/18 08:00 97.6 98 16 127/70 (89) 93 06/11/18 07:29 97 Nasal Cannula 2.0 28 06/11/18 07:29 74 18 97 Nasal Cannula 2.0 28 06/11/18 07:29 Nasal Cannula 2.0 28 06/11/18 07:29 74 18 98 Nasal Cannula 2.0 28 06/11/18 04:00 98.1 78 17 118/71 (87) 96 06/11/18 00:08 Nasal Cannula 06/11/18 00:08 Nasal Cannula 06/11/18 00:00 97.7 85 18 136/74 (94) 94 06/10/18 20:35 Nasal Cannula 2.0 06/10/18 20:00 97.6 87 19 108/69 (82) 96 06/10/18 19:43 84 18 98 Nasal Cannula 2.0 28 06/10/18 19:30 Nasal Cannula 2.0 28 06/10/18 19:30 95 Nasal Cannula 2.0 28 06/10/18 19:27 71 18 95 Nasal Cannula 2.0 28 06/10/18 16:00 98.0 72 18 127/76 (93) 98 06/10/18 14:03 85 18 100 Nasal Cannula 2.0 28 06/10/18 13:55 79 18 96 Nasal Cannula 2.0 28 Intake and Output 06/10/18 06/11/18 18:59 06:59 Intake Total 240 ml Balance 240 ml Intake Oral 240 ml # Voids 3 2 Height (Feet): 5 Height (Inches): 5.00 Weight (Pounds): 172 General Appearance: lethargic Neck: supple Cardiovascular: normal rate Respiratory/Chest: lungs clear Margot Dtuta MD Jun 11, 2018 12:51
--- NOTE | 2018-06-11 13:19 | Neurology Progress Note ---
Interim History Interim History Interim History Ms. Whitfield feels well. She is eating well. She is not short of breath She however is on nasal O2. She is awake, alert and bright. She feels that her mind is clear. She feels stronger. She sat at the edge of her bed for few minutes today. She did not stand or walk. She is not delusional. She denies any new neurologic symptoms. Review of Systems Neuro Review of Systems Benign. Objective Physical Exam Last Vital Signs Date Time Temp Pulse Resp B/P (MAP) Pulse Ox O2 Delivery O2 Flow Rate FiO2 06/11/18 12:01 96.9 81 16 114/56 (75) 97 06/11/18 09:00 Nasal Cannula 2.0 06/11/18 07:29 28 Neurologic Exam Objective PHYSICAL EXAMINATION: GENERAL: She is a well-developed, well-nourished, pleasant lady, lying in bed. HEAD: Normocephalic and atraumatic. EENT: Examination benign NECK: No neck rigidity was observed. NEUROLOGICAL EXAMINATION: MENTAL STATUS EXAMINATION: She was awake and alert. She was oriented [place] [facility] [place]. She was able to recall 3/3 words immediately, after 1 minute and after 3 minutes. She was able to remember president [place] through [employer] Senior with hints. Her mathematical skills were impaired. Her visuospatial function was also impaired. SPEECH: She had a no dysarthria. LANGUAGE: She had a mild anomia for low-frequency words. CRANIAL NERVE EXAMINATION: II: The visual beltran were intact on confrontation testing. III, IV & : The external ocular movements were full and the pupils 3 mm in diameter, equal, round, regular, and reactive to light. V: She had normal facial sensations, and the temporales, masseters, and pterygoids functioned normally. VII: She had a trace left VII central facial paresis. VIII: She was able to hear well bilaterally and had no nystagmus. IX: The palate moved symmetrically on phonation. X: She had no hoarseness of voice. XI: The sternocleidomastoids and trapezii functioned normally. XII: The tongue was in the midline without any fasciculations or atrophy. MOTOR SYSTEM: The tone was normal in all four extremities. Examination of muscle mass revealed no focal wasting. Examination of power revealed G 5/5 power in the upper extremities. She also had G 5/5 in the lower extremities except for G 4+/5 in the iliopsoas. SENSORY EXAMINATION: She had intact sensations to light touch. COORDINATION: She performed well on [id number] testing. REFLEXES: 1+ on the right and 1++ on the left at the biceps, triceps, brachioradialis, and knees, 0 at both ankles. The plantar responses were flexor bilaterally. STANCE: Could not be tested. GAIT: Could not be tested. Impression/Recommendations Diagnostic Impression 1. Ms Leigh Ann Whitfield is a 67-year-old, right-handed, lady, who does have a past history of hypertension, dyslipidemia, chronic obstructive pulmonary disease, hypothyroidism, schizoaffective disorder, and recent falls, who was hospitalized on 05/22/2018 for an altered mental state and a fall at her board and residential. She was found to be hypoxic, hypercapnic, and had a significant leukocytosis. Since she has been in the hospital, she has improved. 2. She feels well. She is eating well. She is not short of breath She however is on nasal O2. She is awake, alert and bright. She feels that her mind is clear. She feels stronger. She sat at the edge of her bed for few minutes today. She did not stand or walk. She is not delusional. She denies any new neurologic symptoms. 3. On neurological examination, at this time, she is fully oriented. Has problems with visuospatial function and higher cognitive function. Has a mild anomia. She has a mild left VII central facial paresis, has proximal lower extremities weakness, and has globally diminished deep tendon reflexes which are slightly brisker on the left. 4. Laboratory data on my initial evaluation revealed that she had a significant leukocytosis with a WBC count of 19,700. Her chemistry panel revealed that her uric acid level was elevated at 8.2, magnesium was low at 1.6. ProBNP that was elevated at 186, albumin was low at 2.5. Her B12 level was normal at 924. Her folate level was normal at 40.6. Her TSH was normal at 1.92 with a free T4 of 1.13. The Hemoglobin A1c was at 6%. Latest arterial blood gas revealed a pH at 7.37, pCO2 at 62, and pO2 at 56. Her urinalysis revealed 1+ leukocyte esterase, 0-2 red blood cells, and 2-4 white blood cells per high-power field. 5. Further laboratory tests have revealed a minimally elevated ammonia at 34. 6. The last ABG done on 06/02/18 revealed a pCO2 at 44 but a low pO2 at 62. 7. Her leukocytosis has improved with a WBC count of 11,400 on 06/10/18. Her HB has normalized. 8. The CT scan of the brain without contrast revealed atrophy and some deep white matter changes, but no acute pathology. 9. The EGG done on 05/24/18 was normal in the awake and drowsy states. 10. The patient's history, neurological examination, laboratory data, and imaging studies are most compatible with a toxic metabolic encephalopathy related to the hypoxia, hypercapnia, and an infectious process. Her encephalopathy continues to improve. Recommendations 1. Continue present management. 2. Aggressive treatment of the patient's respiratory dysfunction as per Dr. Membreno. 3. Aggressive treatment of the patient's infectious process as per Dr. Cohen. 4. Correction of fluid and electrolyte status. 5. Mobilize with PT/OT. 6. Observe. Fransico Bolton M.D., M.S.P.H. Fransico Bolton MD Jun 11, 2018 13:18
[2018-06-11] MEDS: Docusate Sod/Senna tab ORAL SCH ×2 (13:42→21:18)
--- NOTE | 2018-06-11 15:01 | NUR ---
NURSE NOTES: laxative given per MD order. repositioned. Has adequate amount of food intake. will cont to monitor.
--- NOTE | 2018-06-11 15:54 | Cardiac Electrophysiology PN ---
Assessment/Plan Assessment/Plan 1. Respiratory failure due to COPD. On NC and Abx per Dr. Membreno Ruled out for DC. EF 65%. No Significant CHF. 2. Elevated white count, likely pneumonia Now off antibiotic per Dr. Cohen. 3. History of psychosis. 4. Sinus tach due to resp failure and PNA Resolved DW RN Subjective Subjective On nasal cannula and Abx.. Objective Last 24 Hour Vital Signs Date Time Temp Pulse Resp B/P (MAP) Pulse Ox O2 Delivery O2 Flow Rate FiO2 06/11/18 13:24 72 18 98 Nasal Cannula 2.0 28 06/11/18 13:23 71 18 96 Nasal Cannula 2.0 28 06/11/18 12:01 96.9 81 16 114/56 (75) 97 06/11/18 09:00 Nasal Cannula 2.0 06/11/18 08:00 97.6 98 16 127/70 (89) 93 06/11/18 07:29 97 Nasal Cannula 2.0 28 06/11/18 07:29 74 18 97 Nasal Cannula 2.0 28 06/11/18 07:29 Nasal Cannula 2.0 28 06/11/18 07:29 74 18 98 Nasal Cannula 2.0 28 06/11/18 04:00 98.1 78 17 118/71 (87) 96 06/11/18 00:08 Nasal Cannula 06/11/18 00:08 Nasal Cannula 06/11/18 00:00 97.7 85 18 136/74 (94) 94 06/10/18 20:35 Nasal Cannula 2.0 06/10/18 20:00 97.6 87 19 108/69 (82) 96 06/10/18 19:43 84 18 98 Nasal Cannula 2.0 28 06/10/18 19:30 Nasal Cannula 2.0 28 06/10/18 19:30 95 Nasal Cannula 2.0 28 06/10/18 19:27 71 18 95 Nasal Cannula 2.0 28 06/10/18 16:00 98.0 72 18 127/76 (93) 98 Intake and Output 06/10/18 06/11/18 18:59 06:59 Intake Total 240 ml Balance 240 ml Intake Oral 240 ml # Voids 3 2 Objective HEAD AND NECK: No JVD on N/C LUNGS: Coarse rhonchi. CARDIOVASCULAR: Regular S1 and S2 no M/G/R ABDOMEN: Soft. EXTREMITIES: No pitting edema. Zane Ocampo MD Jun 11, 2018 15:54
[2018-06-11 16:00] VITALS: BP 121/71
--- NOTE | 2018-06-11 17:10 | Nephrology Progress Note ---
Assessment/Plan Problem List: (1) Proteinuria (2) Hypoalbuminemia (3) COPD exacerbation (4) Schizoaffective disorder (5) Azotemia Assessment rising BUN and Hgb resolved admitted with exacerbation COPD and Hypoxia High WBCs : UTI , Pneumonia Proteinuria and HypoAlbuminemia Plan Pulmonary support Antibiotics 24 h urine proteins CAN NOT BE COLLECTED UNLESS FOLEY_ WILL DEFER 2D echo Left ventricular ejection fraction grossly estimated to be 65 %. optimize cardiac status ? DC Subjective ROS Limited/Unobtainable: No Objective Objective Last 24 Hour Vital Signs Date Time Temp Pulse Resp B/P (MAP) Pulse Ox O2 Delivery O2 Flow Rate FiO2 06/11/18 16:00 98.0 86 17 121/71 (88) 96 06/11/18 13:24 72 18 98 Nasal Cannula 2.0 28 06/11/18 13:23 71 18 96 Nasal Cannula 2.0 28 06/11/18 12:01 96.9 81 16 114/56 (75) 97 06/11/18 09:00 Nasal Cannula 2.0 06/11/18 08:00 97.6 98 16 127/70 (89) 93 06/11/18 07:29 97 Nasal Cannula 2.0 28 06/11/18 07:29 74 18 97 Nasal Cannula 2.0 28 06/11/18 07:29 Nasal Cannula 2.0 28 06/11/18 07:29 74 18 98 Nasal Cannula 2.0 28 06/11/18 04:00 98.1 78 17 118/71 (87) 96 06/11/18 00:08 Nasal Cannula 06/11/18 00:08 Nasal Cannula 06/11/18 00:00 97.7 85 18 136/74 (94) 94 06/10/18 20:35 Nasal Cannula 2.0 06/10/18 20:00 97.6 87 19 108/69 (82) 96 06/10/18 19:43 84 18 98 Nasal Cannula 2.0 28 06/10/18 19:30 Nasal Cannula 2.0 28 06/10/18 19:30 95 Nasal Cannula 2.0 28 06/10/18 19:27 71 18 95 Nasal Cannula 2.0 28 Intake and Output 06/10/18 06/11/18 19:00 07:00 Intake Total 240 ml Balance 240 ml Intake Oral 240 ml # Voids 3 2 Height (Feet): 5 Height (Inches): 5.00 Weight (Pounds): 172 General Appearance: no apparent distress Objective no change Seamus Morfin MD Jun 11, 2018 17:10
--- NOTE | 2018-06-11 18:58 | NUR ---
HAND-OFF: Report given to Flores.
--- NOTE | 2018-06-11 19:30 | NUR ---
NURSE NOTES: RECEIVED PATIENT LYING IN BED, AWAKE, ALERT/ORIENTED X3 WITH PERIODS OF FORGETFULNESS/CONFUSION, REALITY ORIENTATION PROVIDED PRN. DENIES PAIN. TOLERATING 02 2L VIA NC, NO SIGNS AND SYMPTOMS OF ACUTE CARDIO RESPIRATORY DISTRESS/SHORTNESS OF BREATH, DENIES CHEST PAIN, NO EDEMA NOTED. PATIENT COMPLAINED OF CONSTIPATION, STARTED ON COLACE TWICE DAILY, NO REPORT OF BOWEL MOVEMENT TODAY. ASSISTED WITH PM CARE. SIDE RAILS UP X3/BED IN LOWEST POSITION FOR SAFETY. ENCOURAGED PATIENT TO UTILIZE CALL LIGHT FOR ASSISTANCE, VERBALIZED UNDERSTANDING. BED ALARM ACTIVATED.
[2018-06-11 20:00] VITALS: BP 119/71
--- NOTE | 2018-06-11 21:59 | General Progress Note ---
Assessment/Plan Assessment/Plan Assessment and Recs: # Leukocytosis - is likely related to infection/pna --> smear has been reviewed and only 1% metamyelocytes noted, not significant finding --> esr and crp elevated --> wbc trend : 19--> 22--> 21--> 20-->14-->15 --> abx as per Dr. Cohen, currently on cefepime # Elevated d-dimer - r/o dvt of lower ext --> venous duplex negative scan --> likely elevated due to many possible reasons --> CXR 05/27 Elevated right hemidiaphragm. Bibasilar lung atelectasis. ->05/31: Bilateral lower lobe atelectasis and consolidation, improved since prior study of 05/26/2018 but persistent # Hypoxemia potentially copd related --> off bipap at this time --> bipap at night as per pulm # Hypercarbia # Benzodiazepine dependence # Psychosis # Sinus tach --> as per Dr. Ocampo The timing of this note does not necessarily reflect the time of the patient was seen. Greatly appreciate consultation! Subjective Constitutional: Denies: no symptoms, chills, diaphoresis, fever, malaise, weakness, other HEENT: Denies: no symptoms, eye pain, blurred vision, tearing, double vision, ear pain, ear discharge, nose pain, nose congestion, throat pain, throat swelling, mouth pain, mouth swelling, other Gastrointestinal/Abdominal: Denies: no symptoms, abdomen distended, abdominal pain, black stools, tarry stools, blood in stool, constipated, diarrhea, difficulty swallowing, nausea, poor appetite, poor fluid intake, rectal bleeding , vomiting, other Genitourinary: Denies: no symptoms, burning, discharge, frequency, flank pain, hematuria, incontinence, pain, urgency, other Neurologic/Psychiatric: Denies: no symptoms, anxiety, depressed, emotional problems, headache, numbness, paresthesia, pre-existing deficit, seizure, tingling, tremors, weakness, other Endocrine: Denies: no symptoms, excessive sweating, flushing, intolerance to cold, intolerance to heat, increased hunger, increased thirst, increased urine, unexplained weight gain, unexplained weight loss, other Hematologic/Lymphatic: Denies: no symptoms, anemia, easy bleeding, easy bruising, other Allergies: Coded Allergies: No Known Allergies (Unverified , 05/22/18) Subjective 2: on venturi mask, no new changes, mild fever today, no chills 05/24: Pt is seen by bedside, awake, comfortable, wbc trending up 2: hgb and wbc trending up, seen in the room, awake, bipap, no fevers or cills , 05/26: no new changes, no fever, no chills, Back on BIPAP 05/29:seen by bedside in restraints. BP is elevated, CXR is reviewed, no acute findings, hgb trending up. 05/30: awake, comfortable, no acute distress, wbc 20, hgb still trending up at 19 today. 05/31: seen by bedside, awake, comfortable, no acute distress, 06/01: seen y bedside, awake, comfortable, no acute distress, wbc and hgb trending down. wbc 14, hgb 17. 06/02: Pt is resting in bed, on nasal cannula, was on BIPAP last night, wbc 15 06/04: seen by bedside, awake, comfortable, no events 06/05: awake, comfortable, hgb is trending down and stable. 06/06: Pt is seen by bedside, awake, comfortable, no acute distress reported. wbc trending down 06/07: see by bedside, awake, comfortable. 06/08: Seen by bedside, awake, comfortable 06/09: Wbc trending down ,On nasal cannula and Abx. NG removed tolerating feeding 06/11: seen by bedside, no acute distress, plt trending up Objective Last 24 Hour Vital Signs Date Time Temp Pulse Resp B/P (MAP) Pulse Ox O2 Delivery O2 Flow Rate FiO2 06/11/18 21:15 Nasal Cannula 2.0 06/11/18 20:31 97 Nasal Cannula 2.0 28 06/11/18 20:31 Nasal Cannula 2.0 28 06/11/18 20:00 97.8 77 16 119/71 (87) 94 06/11/18 20:00 79 18 98 Nasal Cannula 2.0 28 06/11/18 19:50 78 18 97 Nasal Cannula 2.0 28 06/11/18 16:00 98.0 86 17 121/71 (88) 96 06/11/18 13:24 72 18 98 Nasal Cannula 2.0 28 06/11/18 13:23 71 18 96 Nasal Cannula 2.0 28 06/11/18 12:01 96.9 81 16 114/56 (75) 97 06/11/18 09:00 Nasal Cannula 2.0 06/11/18 08:00 97.6 98 16 127/70 (89) 93 06/11/18 07:29 97 Nasal Cannula 2.0 28 06/11/18 07:29 74 18 97 Nasal Cannula 2.0 28 06/11/18 07:29 Nasal Cannula 2.0 28 06/11/18 07:29 74 18 98 Nasal Cannula 2.0 28 06/11/18 04:00 98.1 78 17 118/71 (87) 96 06/11/18 00:08 Nasal Cannula 06/11/18 00:08 Nasal Cannula 06/11/18 00:00 97.7 85 18 136/74 (94) 94 Intake and Output 06/10/18 06/11/18 19:00 07:00 Intake Total 240 ml Balance 240 ml Intake Oral 240 ml # Voids 3 2 Height (Feet): 5 Height (Inches): 5.00 Weight (Pounds): 172 Objective General Appearance: no apparent distress, GCS 15, non-toxic, other - sleepy Head: normocephalic, atraumatic Eyes: bilateral eye normal inspection, bilateral eye PERRL ENT: hearing grossly normal, normal pharynx, no angioedema, normal voice Neck: full range of motion, supple/symm/no masses Respiratory: chest non-tender, lungs clear, normal breath sounds Cardiovascular: regular rate, rhythm, no edema Gastrointestinal: normal bowel sounds, non tender Musculoskeletal: back normal, gait/station normal Jorje Troy MD Jun 11, 2018 21:59
[2018-06-12] VITALS: BP 144/76
[2018-06-12] MEDS: Albuterol/Ipratropium 3ml neb HHN SCH ×3 (02:05→14:03)
[2018-06-12 04:00] VITALS: BP 117/61
[2018-06-12] MEDS: NovoLOG Insulin Flexpen SUBQ SCH ×2 (06:30→12:20)
--- NOTE | 2018-06-12 06:35 | NUR ---
NURSE NOTES: BLOOD GLUCOSE MONITORED VIA GLUCOMETER WITH RESULT 92MG/DL, ASSESSED FOR SIGN AND SYMPTOMS OF HYPOGLYCEMIA, NONE NOTED. NAD.
--- NOTE | 2018-06-12 07:06 | NUR ---
HAND-OFF: Report given to RAUL FOLEY.
[2018-06-12] MEDS: Docusate Sod/Senna tab ORAL SCH (07:53)
[2018-06-12 08:00] VITALS: BP 134/58
[2018-06-12] MEDS: Heparin 5000 units/ml inj SUBQ SCH (08:00)
--- NOTE | 2018-06-12 09:37 | General Progress Note ---
Assessment/Plan Assessment/Plan (1) S/p fall (2) COPD Exacerbation (3) OA Patient to be continued on Tylenol D/w Dr. Garcia and he concurred. Subjective Date patient seen: Jun 12, 2018 Time patient seen: 08:15 - am Allergies: Coded Allergies: No Known Allergies (Unverified , 05/22/18) Subjective Constitutional: Reports: weakness Neurologic/Psychiatric: Reports: weakness Allergies: Subjective She has been in bed no pain at this time but continues to c/o weakness. Objective Last 24 Hour Vital Signs Date Time Temp Pulse Resp B/P (MAP) Pulse Ox O2 Delivery O2 Flow Rate FiO2 06/12/18 09:18 Nasal Cannula 2.0 06/12/18 09:09 86 20 97 Nasal Cannula 2.0 28 06/12/18 08:51 Nasal Cannula 2.0 28 06/12/18 08:51 85 20 95 Nasal Cannula 2.0 28 06/12/18 08:49 95 Nasal Cannula 2.0 28 06/12/18 08:00 97.5 97 18 134/58 (83) 97 06/12/18 04:00 97.8 81 18 117/61 (79) 97 06/12/18 02:00 78 18 99 Nasal Cannula 2.0 28 06/12/18 01:50 72 18 95 Nasal Cannula 2.0 28 06/12/18 00:00 98.4 77 20 144/76 (98) 96 06/11/18 21:15 Nasal Cannula 2.0 06/11/18 20:31 97 Nasal Cannula 2.0 28 06/11/18 20:31 Nasal Cannula 2.0 28 06/11/18 20:00 97.8 77 16 119/71 (87) 94 06/11/18 20:00 79 18 98 Nasal Cannula 2.0 28 06/11/18 19:50 78 18 97 Nasal Cannula 2.0 28 06/11/18 16:00 98.0 86 17 121/71 (88) 96 06/11/18 13:24 72 18 98 Nasal Cannula 2.0 28 06/11/18 13:23 71 18 96 Nasal Cannula 2.0 28 06/11/18 12:01 96.9 81 16 114/56 (75) 97 Intake and Output 06/11/18 06/12/18 19:00 07:00 Intake Total 480 ml 300 ml Output Total 400 ml Balance 480 ml -100 ml Intake Oral 480 ml 300 ml Output Urine Total 400 ml # Voids 3 Height (Feet): 5 Height (Inches): 5.00 Weight (Pounds): 172 Objective Neck: non-tender, supple Cardiovascular: normal rate, regular rhythm Respiratory/Chest: decreased breath sounds Abdomen: non tender, soft Extremities: non-tender Edema: trace edema Skin: warm/dry Anjum Dumont Jun 12, 2018 09:37
--- NOTE | 2018-06-12 09:40 | NUR ---
NURSE NOTES: pt in bed with no sob nor in any form of distress noted. no respiratory distress noted. all due meds given as ordered. will continue to monitor
--- NOTE | 2018-06-12 10:15 | NUR ---
*-* DISCHARGE PLANNING *-* PATIENT HAS BEEN REFERRED TO: [facility] P:[phone] F:[phone]
[2018-06-12] MEDS ORDERED: FLUOXETINE HCL40 MG ORAL (10:37)
[2018-06-12] MEDS ORDERED: PERI-COLACE1 EA ORAL (10:38)
[2018-06-12] MEDS ORDERED: HEPARIN SO5000 UNIT2 SUBQ (10:38)
[2018-06-12] MEDS ORDERED: NOVOLOG100 UNIT/5 SUBQ (10:39)
[2018-06-12] MEDS ORDERED: DUONEB 0.5-3(2.53 ML HHN (10:40)
[2018-06-12] MEDS ORDERED: ZYPREXA10 MG ORAL (10:41)
[2018-06-12] MEDS ORDERED: MIRALAX17 G2 ORAL (10:42)
--- NOTE | 2018-06-12 11:10 | Nephrology Progress Note ---
Assessment/Plan Problem List: (1) Proteinuria (2) Hypoalbuminemia (3) COPD exacerbation (4) Schizoaffective disorder (5) Azotemia Assessment rising BUN and Hgb resolved admitted with exacerbation COPD and Hypoxia High WBCs : UTI , Pneumonia Proteinuria and HypoAlbuminemia Plan Pulmonary support Antibiotics 24 h urine proteins CAN NOT BE COLLECTED UNLESS FOLEY_ WILL DEFER 2D echo Left ventricular ejection fraction grossly estimated to be 65 %. optimize cardiac status ? DC Subjective ROS Limited/Unobtainable: No Objective Objective Last 24 Hour Vital Signs Date Time Temp Pulse Resp B/P (MAP) Pulse Ox O2 Delivery O2 Flow Rate FiO2 06/12/18 09:18 Nasal Cannula 2.0 06/12/18 09:09 86 20 97 Nasal Cannula 2.0 28 06/12/18 08:51 Nasal Cannula 2.0 28 06/12/18 08:51 85 20 95 Nasal Cannula 2.0 28 06/12/18 08:49 95 Nasal Cannula 2.0 28 06/12/18 08:00 97.5 97 18 134/58 (83) 97 06/12/18 04:00 97.8 81 18 117/61 (79) 97 06/12/18 02:00 78 18 99 Nasal Cannula 2.0 28 06/12/18 01:50 72 18 95 Nasal Cannula 2.0 28 06/12/18 00:00 98.4 77 20 144/76 (98) 96 06/11/18 21:15 Nasal Cannula 2.0 06/11/18 20:31 97 Nasal Cannula 2.0 28 06/11/18 20:31 Nasal Cannula 2.0 28 06/11/18 20:00 97.8 77 16 119/71 (87) 94 06/11/18 20:00 79 18 98 Nasal Cannula 2.0 28 06/11/18 19:50 78 18 97 Nasal Cannula 2.0 28 06/11/18 16:00 98.0 86 17 121/71 (88) 96 06/11/18 13:24 72 18 98 Nasal Cannula 2.0 28 06/11/18 13:23 71 18 96 Nasal Cannula 2.0 28 06/11/18 12:01 96.9 81 16 114/56 (75) 97 Intake and Output 06/11/18 06/12/18 19:00 07:00 Intake Total 480 ml 300 ml Output Total 400 ml Balance 480 ml -100 ml Intake Oral 480 ml 300 ml Output Urine Total 400 ml # Voids 3 Height (Feet): 5 Height (Inches): 5.00 Weight (Pounds): 172 General Appearance: no apparent distress Objective no change Seamus Morfin MD Jun 12, 2018 11:10
[2018-06-12 12:00] VITALS: BP 122/76
--- NOTE | 2018-06-12 12:01 | GI Progress Note ---
Assessment/Plan Problems: (1) Dysphasia ICD Codes: R47.02 - Dysphasia SNOMED: 60768433 (2) Acute metabolic encephalopathy ICD Codes: G93.41 - Metabolic encephalopathy SNOMED: 98128190, 694653264 (3) COPD exacerbation ICD Codes: J44.1 - Chronic obstructive pulmonary disease with (acute) exacerbation SNOMED: 233633499 (4) Schizoaffective disorder ICD Codes: F25.9 - Schizoaffective disorder, unspecified SNOMED: 40956077 (5) Hypoxia ICD Codes: R09.02 - Hypoxemia SNOMED: 641122743 (6) Hypoalbuminemia ICD Codes: E88.09 - Other disorders of plasma-protein metabolism, not elsewhere classified SNOMED: 587317728 Status: stable, unchanged Status Narrative Discussed with Dr. Acosta Assessment/Plan Speech therapy recommendations noted, passed. No PEG necessary, patient tolerating diet over 50-75% pulmonary care Supportive care Push p.o. Strict aspiration precautions PPI Follow labs Outpatient GI procedures The patient was seen and examined at bedside and all new and available data was reviewed in the patients chart. I agree with the above findings, impression and plan. (Patient seen earlier today. Signature stamp does not reflect patient encounter time.). - Jairon Acosta MD Subjective Gastrointestinal/Abdominal: Reports: no symptoms Subjective Pulmonary congestion Objective Last 24 Hour Vital Signs Date Time Temp Pulse Resp B/P (MAP) Pulse Ox O2 Delivery O2 Flow Rate FiO2 06/12/18 09:18 Nasal Cannula 2.0 06/12/18 09:09 86 20 97 Nasal Cannula 2.0 28 06/12/18 08:51 Nasal Cannula 2.0 28 06/12/18 08:51 85 20 95 Nasal Cannula 2.0 28 06/12/18 08:49 95 Nasal Cannula 2.0 28 06/12/18 08:00 97.5 97 18 134/58 (83) 97 06/12/18 04:00 97.8 81 18 117/61 (79) 97 06/12/18 02:00 78 18 99 Nasal Cannula 2.0 28 06/12/18 01:50 72 18 95 Nasal Cannula 2.0 28 06/12/18 00:00 98.4 77 20 144/76 (98) 96 06/11/18 21:15 Nasal Cannula 2.0 06/11/18 20:31 97 Nasal Cannula 2.0 28 06/11/18 20:31 Nasal Cannula 2.0 28 06/11/18 20:00 97.8 77 16 119/71 (87) 94 06/11/18 20:00 79 18 98 Nasal Cannula 2.0 28 06/11/18 19:50 78 18 97 Nasal Cannula 2.0 28 06/11/18 16:00 98.0 86 17 121/71 (88) 96 06/11/18 13:24 72 18 98 Nasal Cannula 2.0 28 06/11/18 13:23 71 18 96 Nasal Cannula 2.0 28 06/11/18 12:01 96.9 81 16 114/56 (75) 97 Intake and Output 06/11/18 06/12/18 19:00 07:00 Intake Total 480 ml 300 ml Output Total 400 ml Balance 480 ml -100 ml Intake Oral 480 ml 300 ml Output Urine Total 400 ml # Voids 3 Height (Feet): 5 Height (Inches): 5.00 Weight (Pounds): 172 General Appearance: WD/WN, no apparent distress, alert Cardiovascular: normal rate Respiratory/Chest: normal breath sounds, no respiratory distress Abdominal Exam: normal bowel sounds, non tender, soft Extremities: normal range of motion, non-tender Jacqeuline Corona NP Jun 12, 2018 12:01
--- NOTE | 2018-06-12 12:03 | General Progress Note ---
Assessment/Plan Problem List: (1) Schizoaffective disorder ICD Codes: F25.9 - Schizoaffective disorder, unspecified SNOMED: 58148631 (2) Acute metabolic encephalopathy ICD Codes: G93.41 - Metabolic encephalopathy SNOMED: 97579035, 705748803 Status: stable Assessment/Plan prozac 60mg po qam zyprexa 15mg po qhs provided ro/st the pt has capacity to sign consent forms Subjective Neurologic/Psychiatric: Reports: anxiety, depressed, emotional problems Allergies: Coded Allergies: No Known Allergies (Unverified , 05/22/18) Subjective the pt is relatively well no behavioral issues no si/hi compliant with meds and care Objective Last 24 Hour Vital Signs Date Time Temp Pulse Resp B/P (MAP) Pulse Ox O2 Delivery O2 Flow Rate FiO2 06/12/18 09:18 Nasal Cannula 2.0 06/12/18 09:09 86 20 97 Nasal Cannula 2.0 28 06/12/18 08:51 Nasal Cannula 2.0 28 06/12/18 08:51 85 20 95 Nasal Cannula 2.0 28 06/12/18 08:49 95 Nasal Cannula 2.0 28 06/12/18 08:00 97.5 97 18 134/58 (83) 97 06/12/18 04:00 97.8 81 18 117/61 (79) 97 06/12/18 02:00 78 18 99 Nasal Cannula 2.0 28 06/12/18 01:50 72 18 95 Nasal Cannula 2.0 28 06/12/18 00:00 98.4 77 20 144/76 (98) 96 06/11/18 21:15 Nasal Cannula 2.0 06/11/18 20:31 97 Nasal Cannula 2.0 28 06/11/18 20:31 Nasal Cannula 2.0 28 06/11/18 20:00 97.8 77 16 119/71 (87) 94 06/11/18 20:00 79 18 98 Nasal Cannula 2.0 28 06/11/18 19:50 78 18 97 Nasal Cannula 2.0 28 06/11/18 16:00 98.0 86 17 121/71 (88) 96 06/11/18 13:24 72 18 98 Nasal Cannula 2.0 28 06/11/18 13:23 71 18 96 Nasal Cannula 2.0 28 Intake and Output 06/11/18 06/12/18 18:59 06:59 Intake Total 480 ml 300 ml Output Total 400 ml Balance 480 ml -100 ml Intake Oral 480 ml 300 ml Output Urine Total 400 ml # Voids 3 Height (Feet): 5 Height (Inches): 5.00 Weight (Pounds): 172 General Appearance: WD/WN, no apparent distress Neurologic: oriented x 3, responsive, depressed affect Reagan Marshall MD Jun 12, 2018 12:03
--- NOTE | 2018-06-12 13:09 | NUR ---
RD ASSESSMENT & RECOMMENDATIONS SEE CARE ACTIVITY FOR COMPLETE ASSESSMENT DAILY ESTIMATED NEEDS: Needs based on Pulmonary 62.6kg adj 25-30 kcals/kg 7064-8377 total kcals 1-1.5 g protein/kg 63-94 g total protein 25-30 mL/kg 8953-0285 total fluid mLs NUTRITION DIAGNOSIS: * Swallowing difficulty r/t dysphagia, respiratory status as evidenced by RECTIFIER OPERATOR pt on bipap prn, advanced to puree diet from NGT feeds. (UPDATED) * Altered nutrition related lab values R/T prediabetes? clinical condition as evidenced by A1C of 6.0, elev BGs (174 172, now trending down), pt previously on solumedrol+ D5 IVF. CURRENT DIET: CCHO MED, LOW NA puree w/ NTL PO DIET RECOMMENDATIONS: WHEN SAFE FOR ORAL FEEDS-> CCHO MED, LOW NA/ texture per RECTIFIER OPERATOR ADDITIONAL RECOMMENDATIONS: * Re-calibrate bed scale, pt is s/p floor txr * Monitor lytes, replete as needed * Rec SSI- A1C=6.0, on Steroidal med + D5 IVF, on continuous TF * Bowel regimen, last bm 06/08 .
--- NOTE | 2018-06-12 14:15 | NUR ---
NURSE NOTES: [facility] with [facility] condition. All discharge instruction given to the nurse and verbalized understanding. Iv heplock removed. all belongings given to pt. VSS. denies any pain.
[2018-06-12] MEDS ORDERED: Tubing IV Secondary IV ONE (14:25)
--- NOTE | 2018-06-12 14:27 | Cardiac Electrophysiology PN ---
Assessment/Plan Assessment/Plan 1. Respiratory failure due to COPD. On NC and Abx per Dr. Membreno Ruled out for CA. EF 65%. No Significant CHF. 2. Elevated white count, likely pneumonia Now off antibiotic per Dr. Cohen. 3. History of psychosis. 4. Sinus tach due to resp failure and PNA Resolved DW RN DC to [facility] today Subjective Subjective Feeling better. Is being DCed to [facility] Objective Last 24 Hour Vital Signs Date Time Temp Pulse Resp B/P (MAP) Pulse Ox O2 Delivery O2 Flow Rate FiO2 06/12/18 14:05 85 20 98 Nasal Cannula 2.0 28 06/12/18 14:01 84 20 95 Nasal Cannula 2.0 28 06/12/18 12:00 98.2 78 18 122/76 (91) 97 06/12/18 09:18 Nasal Cannula 2.0 06/12/18 09:09 86 20 97 Nasal Cannula 2.0 28 06/12/18 08:51 Nasal Cannula 2.0 28 06/12/18 08:51 85 20 95 Nasal Cannula 2.0 28 06/12/18 08:49 95 Nasal Cannula 2.0 28 06/12/18 08:00 97.5 97 18 134/58 (83) 97 06/12/18 04:00 97.8 81 18 117/61 (79) 97 06/12/18 02:00 78 18 99 Nasal Cannula 2.0 28 06/12/18 01:50 72 18 95 Nasal Cannula 2.0 28 06/12/18 00:00 98.4 77 20 144/76 (98) 96 06/11/18 21:15 Nasal Cannula 2.0 06/11/18 20:31 97 Nasal Cannula 2.0 28 06/11/18 20:31 Nasal Cannula 2.0 28 06/11/18 20:00 97.8 77 16 119/71 (87) 94 06/11/18 20:00 79 18 98 Nasal Cannula 2.0 28 06/11/18 19:50 78 18 97 Nasal Cannula 2.0 28 06/11/18 16:00 98.0 86 17 121/71 (88) 96 Intake and Output 06/11/18 06/12/18 18:59 06:59 Intake Total 480 ml 300 ml Output Total 400 ml Balance 480 ml -100 ml Intake Oral 480 ml 300 ml Output Urine Total 400 ml # Voids 3 Objective HEAD AND NECK: No JVD on N/C LUNGS: Coarse rhonchi. CARDIOVASCULAR: Regular S1 and S2 no M/G/R ABDOMEN: Soft. EXTREMITIES: No pitting edema. Zane Ocampo MD Jun 12, 2018 14:27
--- NOTE | 2018-06-12 16:06 | Diagnostic Imaging Report ---
Indication: Dysphasia Procedure and findings: Real-time fluoroscopic imaging performed in a lateral projection in conjunction with the speech pathologist evaluation. Variable consistencies of barium given per mouth. Findings: Significant abnormalities of both oral and pharyngeal phases of swallowing are demonstrated. Total fluoroscopic time 174 seconds. Penetration occurring with several challenges. No aspiration was identified. Abnormal video swallow. Please refer to speech pathology evaluation for more information.
--- NOTE | 2018-06-12 20:22 | General Progress Note ---
Assessment/Plan Assessment/Plan Assessment and Recs: # Leukocytosis - is likely related to infection/pna --> smear has been reviewed and only 1% metamyelocytes noted, not significant finding --> esr and crp elevated --> wbc trend : 19--> 22--> 21--> 20-->14-->15-->11 --> abx as per Dr. Cohen, currently on cefepime # Elevated d-dimer - r/o dvt of lower ext --> venous duplex negative scan --> likely elevated due to many possible reasons --> CXR 05/27 Elevated right hemidiaphragm. Bibasilar lung atelectasis. ->05/31: Bilateral lower lobe atelectasis and consolidation, improved since prior study of 05/26/2018 but persistent # Hypoxemia potentially copd related --> off bipap at this time --> bipap at night as per pulm # Hypercarbia # Benzodiazepine dependence # Psychosis # Sinus tach --> as per Dr. Ocampo The timing of this note does not necessarily reflect the time of the patient was seen. Greatly appreciate consultation! Subjective Constitutional: Denies: no symptoms, chills, diaphoresis, fever, malaise, weakness, other Cardiovascular: Denies: no symptoms, chest pain, edema, irregular heart rate, lightheadedness, palpitations, syncope, other Respiratory: Denies: no symptoms, cough, orthopnea, shortness of breath, SOB with excertion, SOB at rest, sputum, stridor, wheezing, other Gastrointestinal/Abdominal: Denies: no symptoms, abdomen distended, abdominal pain, black stools, tarry stools, blood in stool, constipated, diarrhea, difficulty swallowing, nausea, poor appetite, poor fluid intake, rectal bleeding , vomiting, other Genitourinary: Denies: no symptoms, burning, discharge, frequency, flank pain, hematuria, incontinence, pain, urgency, other Endocrine: Denies: no symptoms, excessive sweating, flushing, intolerance to cold, intolerance to heat, increased hunger, increased thirst, increased urine, unexplained weight gain, unexplained weight loss, other Hematologic/Lymphatic: Denies: no symptoms, anemia, easy bleeding, easy bruising, other Allergies: Coded Allergies: No Known Allergies (Unverified , 05/22/18) Subjective 2: on venturi mask, no new changes, mild fever today, no chills 05/24: Pt is seen by bedside, awake, comfortable, wbc trending up 05/25: hgb and wbc trending up, seen in the room, awake, bipap, no fevers or cills , 05/26: no new changes, no fever, no chills, Back on BIPAP 05/29:seen by bedside in restraints. BP is elevated, CXR is reviewed, no acute findings, hgb trending up. 05/30: awake, comfortable, no acute distress, wbc 20, hgb still trending up at 19 today. 05/31: seen by bedside, awake, comfortable, no acute distress, 06/01: seen y bedside, awake, comfortable, no acute distress, wbc and hgb trending down. wbc 14, hgb 17. 06/02: Pt is resting in bed, on nasal cannula, was on BIPAP last night, wbc 15 06/04: seen by bedside, awake, comfortable, no events 06/05: awake, comfortable, hgb is trending down and stable. 06/06: Pt is seen by bedside, awake, comfortable, no acute distress reported. wbc trending down 06/07: see by bedside, awake, comfortable. 06/08: Seen by bedside, awake, comfortable 06/09: Wbc trending down ,On nasal cannula and Abx. NG removed tolerating feeding 06/11: seen by bedside, no acute distress, plt trending up 06/12: Pt is resting in bed, no acute distress, cbc reviewed, stable Objective Last 24 Hour Vital Signs Date Time Temp Pulse Resp B/P (MAP) Pulse Ox O2 Delivery O2 Flow Rate FiO2 06/12/18 14:05 85 20 98 Nasal Cannula 2.0 06/12/18 14:01 84 20 95 Nasal Cannula 2.0 06/12/18 12:00 98.2 78 18 122/76 (91) 97 06/12/18 09:18 Nasal Cannula 2.0 06/12/18 09:09 86 20 97 Nasal Cannula 2.0 06/12/18 08:51 Nasal Cannula 2.0 28 06/12/18 08:51 85 20 95 Nasal Cannula 2.0 28 06/12/18 08:49 95 Nasal Cannula 2.0 28 06/12/18 08:00 97.5 97 18 134/58 (83) 97 06/12/18 04:00 97.8 81 18 117/61 (79) 97 06/12/18 02:00 78 18 99 Nasal Cannula 2.0 28 06/12/18 01:50 72 18 95 Nasal Cannula 2.0 28 06/12/18 00:00 98.4 77 20 144/76 (98) 96 06/11/18 21:15 Nasal Cannula 2.0 06/11/18 20:31 97 Nasal Cannula 2.0 28 06/11/18 20:31 Nasal Cannula 2.0 28 Intake and Output 06/11/18 06/12/18 19:00 07:00 Intake Total 480 ml 300 ml Output Total 400 ml Balance 480 ml -100 ml Intake Oral 480 ml 300 ml Output Urine Total 400 ml # Voids 3 Height (Feet): 5 Height (Inches): 5.00 Weight (Pounds): 172 Objective General Appearance: no apparent distress, GCS 15, non-toxic, other - sleepy Head: normocephalic, atraumatic Eyes: bilateral eye normal inspection, bilateral eye PERRL ENT: hearing grossly normal, normal pharynx, no angioedema, normal voice Neck: full range of motion, supple/symm/no masses Respiratory: chest non-tender, lungs clear, normal breath sounds Cardiovascular: regular rate, rhythm, no edema Gastrointestinal: normal bowel sounds, non tender Musculoskeletal: back normal, gait/station normal Jorje Troy MD Jun 12, 2018 20:22
--- NOTE | 2018-06-12 22:49 | Pulmonology Progress Note ---
Assessment/Plan Problems: (1) COPD exacerbation (2) Hypercapnic respiratory failure, chronic (3) Hypoxia (4) Benzodiazepine dependence (5) Hypercarbia (6) Schizoaffective disorder Assessment/Plan ASSESSMENT: The patient is a 67-year-old female smoker with history of chronic obstructive pulmonary disease, assisted living resident, hypertension, hyperlipidemia, hypothyroidism, presenting after a fall, respiratory distress, likely exacerbation of chronic obstructive pulmonary disease and urinary tract infection. PROBLEM LIST: 1. Acute on chronic hypercapnic respiratory failure. 2. Chronic obstructive pulmonary disease with acute exacerbation. 3. Urinary tract infection (alpha hemolytic strep) 4. CoNS in blood likely contaminant 5. Leukocytosis secondary to above and steroids 6. Questionable fall. 7. History of psychiatric disorder. 8. Hypertension, hyperlipidemia, hypothyroidism. 9. Mild elevation of D-dimer. 10. Erythrocytosis & likely hemoconcentration 11. Elevated BUN TREATMENT PLAN: 1. Optimize pulmonary hygiene/mobilize as tolerated. 2. BiPAP 12/5 qHS and PRN - ENCOURAGE NOCTURNAL USE (DECLINES) 3. Titrate FiO2 to keep saturations greater than 90% 4. RTC and PRN DuoNeb 5. OBSERVE OFF STEROIDS 6. Observe off Abx per ID 7. Aspiration precautions 8. Monitor volumes and renal function, SLIV 9. DVT prophylaxis with heparin subcutaneous. 10. Bowel regimen 11. The patient should have outpatient workup including pulmonary function tests Subjective Allergies: Coded Allergies: No Known Allergies (Unverified , 05/22/18) Subjective Seen earlier discharged since O2 needs stable no cough no SOB no wheezing no FC Objective Last 24 Hour Vital Signs Date Time Temp Pulse Resp B/P (MAP) Pulse Ox O2 Delivery O2 Flow Rate FiO2 06/12/18 14:05 85 20 98 Nasal Cannula 2.0 28 06/12/18 14:01 84 20 95 Nasal Cannula 2.0 28 06/12/18 12:00 98.2 78 18 122/76 (91) 97 06/12/18 09:18 Nasal Cannula 2.0 06/12/18 09:09 86 20 97 Nasal Cannula 2.0 28 06/12/18 08:51 Nasal Cannula 2.0 28 06/12/18 08:51 85 20 95 Nasal Cannula 2.0 28 06/12/18 08:49 95 Nasal Cannula 2.0 28 06/12/18 08:00 97.5 97 18 134/58 (83) 97 2/25/19 04:00 97.8 81 18 117/61 (79) 97 06/12/18 02:00 78 18 99 Nasal Cannula 2.0 28 06/12/18 01:50 72 18 95 Nasal Cannula 2.0 28 06/12/18 00:00 98.4 77 20 144/76 (98) 96 Intake and Output 06/11/18 06/12/18 19:00 07:00 Intake Total 480 ml 300 ml Output Total 400 ml Balance 480 ml -100 ml Intake Oral 480 ml 300 ml Output Urine Total 400 ml # Voids 3 General Appearance: WD/WN, no acute distress HEENT: normocephalic, atraumatic, anicteric, mucous membranes moist Respiratory/Chest: chest wall non-tender, lungs clear - but distant, normal breath sounds, no respiratory distress Cardiovascular: normal peripheral pulses, normal rate, regular rhythm Abdomen: normal bowel sounds, soft, non tender, no organomegaly, non distended , no mass Extremities: no cyanosis, no clubbing, no edema Rory Membreno MD Jun 12, 2018 22:49
--- NOTE | 2018-06-14 07:53 | Discharge Summary ---
Discharge Summary Discharge Summary _ DATE OF ADMISSION: 05/22 DATE OF DISCHARGE: 06/12/2018 DISCHARGED BY: Dr Dutta REASON FOR ADMISSION: 67 years old female with past medical history of hypertension, COPD, hyperlipidemia, hypothyroidism, smoker, with underlying psychiatric disorder, resident of assisted living, was sent to emergency room for evaluation due to low oxygen saturation. Upon evaluation pulse oximetry was 82% on room air. Patient was sleepy but appeared to answer basic yes/no questions. Upon evaluation laboratory workup revealed leukocytosis WBC 16.1, stable hemoglobin and hematocrit. Stable electrolytes and renal parameters. Troponin -0.019 . EKG revealed sinus rhythm , no acute ischemic changes. Pro BNP 212. Albumin 2.9. D-dimer 0.78. ABG revealed evidence of respiratory acidosis with pH of 7.29 and PCO2 63.9.. Lactic acid 0.8 Urinalysis revealed moderate bacteria and minimal pyuria. Chest x-ray demonstrated no acute cardiopulmonary pathology. CT of the head showed no acute intracranial bleeding, mass-effect or atrophy. Mild atrophy of the brain was noted. Patient appeared to be very sleepy. Apparently patient was taken benzodiazepine for anxiety. Patient was placed on BiPAP and showed some improvement. Patient was admitted for further management. CONSULTANTS: manager audio Dr. Perkins neurologist Dr. Bolton pulmonary ID specialist Dr. Restrepo GI specialist Dr. Acosta sales representative malt liquors Dr. Morfin admittance attendant/oncologist Dr. Troy psychiatrist [facility] COURSE: Patient admitted to monitored floor. BiPAP was continued. Patient was followed-up with ABG, settings were optimized according to ABG results. FiO2 titrated to keep saturation above 90%. Pulmonary toilet with bronchodilator provided [id number] and as needed. Patient was started on empiric antibiotics and intravenous steroids. Mucomyst provided via hand-held nebulizing. Patient was closely monitored for any signs of respiratory infection. Venous duplex bilateral lower extremity revealed no evidence of acute DVT. Patient initially kept n.p.o. while on the BiPAP. DVT prophylaxis provided. CT angiogram of the chest revealed no pulmonary emboli or aortic dissection. Right lower lobe atelectasis and consolidation noted. Epidemiology Intern followed. Serial troponin were negative. EKG revealed no acute ischemic changes. Patient was completely ruled out for MN. Patient started on low-dose diuretic with close monitoring of volumes and cardiorenal parameters. Pron BNP from 212 down to 663. Echocardiogram revealed preserved ejection fraction of 65% with no evidence of left ventricular hypertrophy. No evidence of wall motion abnormality. Right ventricular systolic pressure 22. ID specialist followed. Rapid influenza screen test was negative. Initial blood culture revealed 1 out of 4 Staph coagulase negative, likely contaminant as per infectious disease. Urine culture revealed growth of Aerococci. Leukocytosis reached on 05/27 the highest value of 22 and then started to go down. Leukocytosis was possibly due to steroids. Steroids gradually tapered and discontinue prior to discharge Antibiotic regimen optimized as per infectious disease doctor recommendation. Patient completed empiric antibiotics for COPD exacerbation and possible pneumonia. Afterwards infectious disease doctor recommended to observe patient off antibiotic. Patient was continued to be monitored with ABG. Patient eventually was able to be weaned from the BiPAP. Last ABG revealed resolved hypercapnia. Prior to discharge pulse oximetry stable on 2 L of oxygen via nasal cannula Patient was counseled on smoking cessation. Neurologist followed. EEG was normal in the awake and drowsy state. Ammonia minimally elevated at 34. Per neurologist, the patient history, neurological examination ,laboratory data ,and imaging studies were most compatible with toxic metabolic encephalopathy, related to hypoxia, hypercapnia, and infectious process. Encephalopathy was improving. Patient was mobilized with help of physical therapy. Table Inspector closely followed. Renal parameters and electrolytes were closely monitored. Electrolytes corrected as needed and nephrotoxins were avoided. Patient with evidence of proteinuria and hypoalbuminemia. Rising BUN resolved with IV fluids . . Prior to discharge BUN 11 ,creatinine 0.6. GI specialist followed. Swallow evaluation revealed evidence of dysphagia. Diet started as per speech therapist recommendation. Calorie count initiated. No PEG was necessary since patient was able to tolerate 50-75% of diet. Oral fluids were pushed. Strict aspiration precaution maintained. Bowel regimen instituted. Patient was on PPI. Stool for occult blood was negative. Hemoglobin and hematocrit remained stable. Outpatient GI procedure was recommended. CT chest of the abdomen and pelvis revealed no acute abdominal or pelvic process. Mild rectal distention with stool. Bilateral lower lobe atelectasis and consolidation that improved since prior study. Urine toxicology screen was negative twice. Psychiatrist followed. Psychiatric medication regimen was optimized as per psychiatrist. Reality orientation and supportive therapy provided. Patient clinically stabilized. Afebrile, leukocytosis trended down to 11.1. Pulse oximetry stable on oxygen 2 L via nasal cannula. Hemodynamically stable. Tolerated diet. Placement was found at longterm facility /[facility]. Patient was stable for transfer. Real Estate Account Executive recommended to have outpatient pulmonary function test. FINAL DIAGNOSES: Acute on chronic hypercapnic respiratory failure ( due to COPD exacerbation) COPD exacerbation Leukocytosis-improving Likely pneumonia -s/p treatment Aerococcus UTI, status post treatment Acute metabolic encephalopathy ( due to hypercapnia, hypoxia and infection) - resolved Dysphagia Hypertension Hypothyroidism Hyperlipidemia Schizoaffective disorder Hypoalbuminemia Benzodiazepine dependence DISCHARGE MEDICATIONS: See Medication Reconciliation list. DISCHARGE INSTRUCTIONS: Patient was discharged to the longterm facility. Follow up with medical doctor at the facility. I have been assigned to dictate discharge summary for this account. I was not involved in the patient's management. Tatyana Madsen NP Jun 14, 2018 07:52
== END 2018-06-12 14:26 | DRG 193 ==
LOC: EDBD 12:38 → EMR 14:00 → EDBEDREQ 14:14 → ICU 14:36 → EDBEDREQ 15:20 → 2W 18:11 → 4E 06-05 18:11
DX: J18.9 Pneumonia, unspecified organism (principal); J96.22 Acute and chronic respiratory failure with hypercapnia; G93.41 Metabolic encephalopathy; J44.1 Chronic obstructive pulmonary disease with (acute) exacerbation; N39.0 Urinary tract infection, site not specified; F13.20 Sedative, hypnotic or anxiolytic dependence, uncomplicated; E46 Unspecified protein-calorie malnutrition; I10 Essential (primary) hypertension; F41.9 Anxiety disorder, unspecified; E03.9 Hypothyroidism, unspecified; K21.9 Gastro-esophageal reflux disease without esophagitis; G47.00 Insomnia, unspecified; R27.0 Ataxia, unspecified; F25.9 Schizoaffective disorder, unspecified; R00.0 Tachycardia, unspecified; R13.10 Dysphagia, unspecified; Z68.28 Body mass index [BMI] 28.0-28.9, adult; R80.9 Proteinuria, unspecified; R79.89 Other specified abnormal findings of blood chemistry; E88.09 Other disorders of plasma-protein metabolism, not elsewhere classified
CPT/HCPCS: 36415; 36600; 70450; 71045; 71250; 71275; 74018; 74176; 74230; 80048; 80053; 80061; 80164; 80307; 81003; 82140; 82270; 82607; 82746; 82803; 82962; 82977; 83036; 83605; 83735; 83880; 84100; 84439; 84443; 84484; 84550; 85007; 85025; 85379; 85610; 86140; 86710; 87040; 87081; 87086; 87181; 93005; 93306; 93970; 94640; 94660; 94664; 94760; 95819; 99285; C9399; J1815; J7620

== ENCOUNTER 2019-05-31 13:19 | Inpatient (IN) | payer MEDICARE, MEDICAID ==
[~2019-05-31] VITALS: Ht 162.6 cm; Wt 72.6 kg
--- NOTE | 2019-05-31 01:00 | NUR ---
NURSE NOTES: Called [facility] x2 at [phone] and [phone] to fax medications lists. Still awaiting callback and documents.
[~2019-05-31 13:19] MED LIST changes: +DUONEB 0.5-3(2.53 ML HHN; +FLUOXETINE HCL40 MG ORAL; +HEPARIN SO5000 UNIT2 SUBQ; +LORAZEPAM2 MG ORAL; +MIRALAX17 G2 ORAL; +NOVOLOG100 UNIT/5 SUBQ; +PERI-COLACE1 EA ORAL; +SYNTHROID50 MCG ORAL; +UNOBMED; +ZYPREXA10 MG ORAL
--- NOTE | 2019-05-31 13:22 | NUR ---
ED Nurse Note: pt arrived with med reach 82 due to shortness of breath and high hgb per ems. pt shows NAD. pt placed in gown and monitor
[2019-05-31] MEDS ORDERED: ZOLPIDEM TARTRAT5 MG ORAL (13:30)
[2019-05-31] MEDS ORDERED: NEXIUM20 MG ORAL (13:30)
[2019-05-31] MEDS ORDERED: CRESTOR10 M2 ORAL (13:30)
[2019-05-31 13:42] VITALS: BP 119/73
[2019-05-31] MEDS ORDERED: Albuterol/Ipratropium 3ml neb HHN ONE (13:45)
[2019-05-31 13:53] LABS: EOSINOPHILS % (AUTO) 1.8 % (0.0-3.0); HEMATOCRIT 53.9 % (37.0-47.0); LYMPHOCYTES % (AUTO) 35.6 % (20.0-45.0); MEAN CORPUSCULAR VOLUME 92 FL (80-99); MONOCYTES % (AUTO) 8.7 % (1.0-10.0); PLATELET COUNT 220 K/UL (150-450); RED BLOOD COUNT 5.88 M/UL (4.20-5.40); RED CELL DISTRIBUTION WIDTH 10.8 % (11.6-14.8); WHITE BLOOD COUNT 8.4 K/UL (4.8-10.8)
--- NOTE | 2019-05-31 13:55 | Emergency Room Report ---
History of Present Illness General Chief Complaint: Abnormal Labs Source: Patient, Medical Record Present Illness HPI 68-year-old female living in a [facility], presents with shortness of breath , cough with sputum production times a few days, no aggravating alleviating factors severity is moderate, constant, no fevers no chills no chest pain, she does endorse some mild shortness of breath patient presents for evaluation by her primary care doctor. They also found her hemoglobin to also be elevated Allergies: Coded Allergies: No Known Allergies (Unverified , 05/22/18) Patient History Past Medical History: see triage record Social History: Reports: smoking Reviewed Nursing Documentation: PMH: Agreed; PSxH: Agreed Nursing Documentation-PMH Past Medical History: No History, Except For Hx Hypertension: Yes History Of Psychiatric Problem: Yes - Delusional Hx Neurological Problems: Yes - delusional Review of Systems All Other Systems: negative except mentioned in HPI Physical Exam Vital Signs Date Time Temp Pulse Resp B/P (MAP) Pulse Ox O2 Delivery O2 Flow Rate FiO2 05/31/19 13:23 97.5 85 16 123/69 (87) 92 Room Air 05/31/19 13:43 21 Sp02 EP Interpretation: reviewed, normal General Appearance: no apparent distress, alert Head: normocephalic, atraumatic Eyes: bilateral eye PERRL, bilateral eye EOMI ENT: uvula midline, moist mucus membranes Neck: supple, thyroid normal, supple/symm/no masses Respiratory: decreased breath sounds, accessory muscle use - Mild, wheezing - Mild Cardiovascular #1: normal peripheral pulses, regular rate, rhythm, no edema, no gallop, no murmur Gastrointestinal: non tender, soft, no guarding, no rebound Musculoskeletal: normal inspection Neurologic: alert, oriented x3 Psychiatric: mood/affect normal Skin: no rash, warm/dry Medical Decision Making Diagnostic Impression: Primary Impression: COPD exacerbation ER Course 68-year-old female history of smoking presents with shortness of breath, cough, differential diagnosis includes COPD exacerbation, pneumonia Steroids given, duo nebs given Reevaluation 2:46 PM patient feeling better Plan to admit patient for further care Patient admitted to Dr. Dutta Laboratory Tests Test 05/31/19 13:33 05/31/19 14:13 White Blood Count 8.4 K/UL (4.8-10.8) Red Blood Count 5.88 M/UL (4.20-5.40) H Hemoglobin 19.4 G/DL (12.0-16.0) *H Hematocrit 53.9 % (37.0-47.0) H Mean Corpuscular Volume 92 FL (80-99) Mean Corpuscular Hemoglobin 32.9 PG (27.0-31.0) H Mean Corpuscular Hemoglobin Concent 35.9 G/DL (32.0-36.0) Red Cell Distribution Width 10.8 % (11.6-14.8) L Platelet Count 220 K/UL (150-450) Mean Platelet Volume 6.4 FL (6.5-10.1) L Neutrophils (%) (Auto) 53.0 % (45.0-75.0) Lymphocytes (%) (Auto) 35.6 % (20.0-45.0) Monocytes (%) (Auto) 8.7 % (1.0-10.0) Eosinophils (%) (Auto) 1.8 % (0.0-3.0) Basophils (%) (Auto) 1.0 % (0.0-2.0) Prothrombin Time 10.7 SEC (9.30-11.50) Prothrombin Time INR 1.0 (0.9-1.1) Activated Partial Thromboplast Time 29 SEC (23-33) Sodium Level 139 MMOL/L (136-145) Potassium Level 4.1 MMOL/L (3.5-5.1) Chloride Level 99 MMOL/L (98-107) Carbon Dioxide Level 33 MMOL/L (21-32) H Anion Gap 7 mmol/L (5-15) Blood Urea Nitrogen 9 mg/dL (7-18) Creatinine 0.8 MG/DL (0.55-1.30) Estimate Glomerular Filtration Rate > 60 mL/min (>60) Glucose Level 107 MG/DL (74-106) H Calcium Level 9.7 MG/DL (8.5-10.1) Total Bilirubin 0.3 MG/DL (0.2-1.0) Aspartate Amino Transferase (AST) 17 U/L (15-37) Alanine Aminotransferase (ALT) 20 U/L (12-78) Alkaline Phosphatase 87 U/L (46-116) Total Protein 7.8 G/DL (6.4-8.2) Albumin 3.6 G/DL (3.4-5.0) Globulin 4.2 g/dL Albumin/Globulin Ratio 0.9 (1.0-2.7) L Urine Color Pale yellow Urine Appearance Clear Urine pH 7 (4.5-8.0) Urine Specific [place] 1.010 (1.005-1.035) Urine Protein Negative (NEGATIVE) Urine Glucose (UA) Negative (NEGATIVE) Urine Ketones Negative (NEGATIVE) Urine Blood Negative (NEGATIVE) Urine Nitrite Negative (NEGATIVE) Urine Bilirubin Negative (NEGATIVE) Urine Urobilinogen Normal MG/DL (0.0-1.0) Urine Leukocyte Esterase Negative (NEGATIVE) EKG Diagnostic Results EKG Time: 13:33 EP Interpretation: NSR, rate 81, QTc 429, no acute ST elevations, normal axis Rhythm Strip Diag. Results Rhythm Strip Time: 14:48 Rate: 78 Rhythm: NSR, no PVC's, no ectopy Chest X-Ray Diagnostic Results Chest X-Ray Diagnostic Results : Chest X-Ray Ordered: Yes # of Views/Limited/Complete: 1 View Indication: Shortness of Breath EP Interpretation: Yes Interpretation: no consolidation, no effusion, no pneumothorax, no acute cardiopulmonary disease Impression: No acute disease Electronically Signed by: Twan Ni MD Last Vital Signs Date Time Temp Pulse Resp B/P (MAP) Pulse Ox O2 Delivery O2 Flow Rate FiO2 05/31/19 13:53 74 17 98 Room Air 21 74 18 92 05/31/19 13:42 97.7 119/73 Disposition: ADMITTED INPATIENT Condition: Stable Twan Ni MD May 31, 2019 13:55
[2019-05-31 14:05] LABS: ANION GAP 7 mmol/L (5-15); BLOOD UREA NITROGEN 9 mg/dL (7-18); CALCIUM 9.7 MG/DL (8.5-10.1); CARBON DIOXIDE 33 MMOL/L (21-32); CHLORIDE 99 MMOL/L (98-107); CREATININE 0.8 MG/DL (0.55-1.30); HEMOGLOBIN 19.4 G/DL (12.0-16.0); POTASSIUM 4.1 MMOL/L (3.5-5.1); SODIUM 139 MMOL/L (136-145)
[2019-05-31 14:11] LABS: ALANINE AMINOTRANSFERASE 20 U/L (12-78); ALBUMIN 3.6 G/DL (3.4-5.0); ALBUMIN/GLOBULIN RATIO 0.9 (1.0-2.7); ALKALINE PHOSPHATASE 87 U/L (46-116); ASPARTATE AMINO TRANSFERASE 17 U/L (15-37); BILIRUBIN,TOTAL 0.3 MG/DL (0.2-1.0)
--- NOTE | 2019-05-31 14:36 | NUR ---
ED Nurse Note: urine and blood specimen sent to lab
[2019-05-31 15:01] LABS: APPEARANCE,URINE CLEAR; BILIRUBIN, URINE NEGATIVE (NEGATIVE); COLOR,URINE PALE YELLOW; GLUCOSE, URINE (UA) NEGATIVE (NEGATIVE); KETONES,URINE NEGATIVE (NEGATIVE); LEUKOCYTE ESTERASE ,URINE NEGATIVE (NEGATIVE); NITRITE,URINE NEGATIVE (NEGATIVE); PH,URINE 7 (4.5-8.0); PROTEIN,URINE NEGATIVE (NEGATIVE); UROBILINOGEN,URINE NORMAL MG/DL (0.0-1.0)
[2019-05-31 15:09] VITALS: BP 116/66
--- NOTE | 2019-05-31 15:10 | NUR ---
ED Nurse Note: pt calm and asleep, resting in bed.
--- NOTE | 2019-05-31 15:27 | Diagnostic Imaging Report ---
. Indication: Cough Technique: One view of the chest Comparison: 05/29/2018 Findings: Previously demonstrated nasogastric tube is no longer evident. The lungs and pleural spaces are clear. The heart size is upper limits of normal. Impression: No acute process
--- NOTE | 2019-05-31 16:00 | NUR ---
ED Nurse Note: PT ASSISTED TO RESTROOM, AMBULATORY WITH STEADY GAIT
--- NOTE | 2019-05-31 17:05 | NUR ---
ED Nurse Note: PT ASLEEP IN BED. PT APPEARS COMFORTABLE
[2019-05-31 17:13] VITALS: BP 125/72
--- NOTE | 2019-05-31 18:27 | NUR ---
ED Nurse Note: PT PROVIDED MEAL
--- NOTE | 2019-05-31 18:30 | NUR ---
ED Nurse Note: PT URINATED BED PT WAS CHANGED AND CLEANED, PROVIDED PT WITH NEW LINENS
--- NOTE | 2019-05-31 19:00 | NUR ---
HAND-OFF: Report given to JOSE WATTERS RN.
--- NOTE | 2019-05-31 19:12 | NUR ---
ED Nurse Note: RECEIVED REPORT FROM SHAVONNE CARTER. KATHRINE PAEZ. WILL CONTINUE TO MONITOR PATIENT.
[2019-05-31 19:18] VITALS: BP 118/61
--- NOTE | 2019-05-31 20:36 | NUR ---
NURSE NOTES: Received report from SKYLAR Barron RN. Pt received at 2039 via [employer]. Pt is awake, lying high montemayor's; comfortably resting. No signs of acute distress noted. Pt denies any pain at this time. AOx4; able to make needs known. Checked IV site; patent and flushed. No erythema, bleeding, or infiltration noted. Bed at lowest position. Siderails up x2. Brakes on. Call light within reach. Will continue to monitor.
--- NOTE | 2019-05-31 20:40 | NUR ---
TRANSFER TO FLOOR: Patient transferred to 311-1 via gurney accompanied by sheet cutter in stable condition as ordered, per dr. Dutta. Report given to rn for 311-1. Belongings sent iwth patient
--- NOTE | 2019-05-31 21:25 | NUR ---
NURSE NOTES: Contacted Dr. Dutta for full admission orders. Awaiting callback.
--- NOTE | 2019-05-31 21:31 | NUR ---
NURSE NOTES: Received orders from Dr. Dutta. Orders received and carried out. See orders for details.
[2019-05-31] MEDS ORDERED: OLANZAPINE10 MG ORAL (23:05)
[2019-05-31] MEDS ORDERED: PROLIXIN10 MG ORAL (23:20)
[2019-06-01] VITALS: BP 125/72
[2019-06-01] MEDS: OLANZapine 10mg tab ORAL SCH ×3 (00:41→17:16)
[2019-06-01] MEDS: Albuterol/Ipratropium 3ml neb HHN SCH ×5 (00:59→19:49)
--- NOTE | 2019-06-01 01:30 | History and Physical Report ---
DATE OF ADMISSION: 05/31/2019 HISTORY OF PRESENT ILLNESS: The patient is admitted for COPD exacerbation. The patient is complaining of shortness of breath and dyspnea. The patient also has elevated hemoglobin most likely due to smoking. Admitted for wheezing, shortness of breath and cough for the past couple of days. The patient is a heavy smoker as well. The patient denies nausea, vomiting, or diarrhea. No fever or chills. Does have shortness of breath. Denies orthopnea. PAST MEDICAL HISTORY: COPD, depression, schizophrenia, constipation, hyperlipidemia, insomnia, hypothyroidism, and hyperlipidemia. PAST SURGICAL HISTORY: Denies. ALLERGIES: No known allergies. MEDICATIONS: Fluoxetine, Synthroid, lorazepam, metoprolol, Zyprexa, omeprazole, and Crestor. FAMILY HISTORY: Noncontributory. SOCIAL HISTORY: The patient smokes. Denies history of alcohol or illicit drugs. REVIEW OF SYSTEMS: HEENT: Denies headaches. PULMONARY: Reports shortness of breath, cough, and wheezing for the past couple days. CARDIOVASCULAR: Denies chest pain. GI: Denies nausea, vomiting, or diarrhea. EXTREMITIES: Denies pain. CENTRAL NERVOUS SYSTEM: Denies changes in speech pattern. Feels weak. PHYSICAL EXAMINATION: VITAL SIGNS: Temperature is 97.7, pulse is 73, blood pressure is 119/72. HEENT: PERRLA. NECK: Supple. No lymphadenopathy. CHEST: Bibasilar wheezing. CARDIOVASCULAR: Regular rate and rhythm. No murmurs or extra sounds. GASTROINTESTINAL: Soft, distended, positive bowel sounds. EXTREMITIES: 1+ edema. Reflexes equal on both sides. Moves all four extremities. LABORATORY DATA: WBC of 8.4, hemoglobin 19.4, platelets of 220,000. Sodium 139, potassium 4.1, carbon dioxide of 33. ASSESSMENT AND PLAN: Elevated CO2, COPD exacerbation, rule out pneumonia, and elevated hemoglobin most likely due to smoking. I have asked Dr. Sargent, Dr. Degroot, Dr. Migel Cohen to see the patient to help with the above-mentioned diagnoses and treatment of symptoms. Margot Dutta M.D. DR: Quin JOB#: [id number] CC:
--- NOTE | 2019-06-01 02:10 | NUR ---
NURSE NOTES: Called Beatrice ED RN to verify reconciled meds on file. See reconciled meds for details.
[2019-06-01 04:00] VITALS: BP 130/50
[2019-06-01 06:03] LABS: BASOPHILS % (AUTO) 0.5 % (0.0-2.0); EOSINOPHILS % (AUTO) 0.1 % (0.0-3.0); HEMATOCRIT 51.7 % (37.0-47.0); LYMPHOCYTES % (AUTO) 20.7 % (20.0-45.0); MEAN CORPUSCULAR VOLUME 92 FL (80-99); MONOCYTES % (AUTO) 5.5 % (1.0-10.0); NEUTROPHILS % (AUTO) 73.2 % (45.0-75.0); PLATELET COUNT 191 K/UL (150-450); RED BLOOD COUNT 5.62 M/UL (4.20-5.40); RED CELL DISTRIBUTION WIDTH 11.3 % (11.6-14.8); WHITE BLOOD COUNT 8.2 K/UL (4.8-10.8)
[2019-06-01 06:10] LABS: HEMOGLOBIN 18.2 G/DL (12.0-16.0)
[2019-06-01 06:23] LABS: ALANINE AMINOTRANSFERASE 18 U/L (12-78); ALBUMIN 3.1 G/DL (3.4-5.0); ALBUMIN/GLOBULIN RATIO 0.8 (1.0-2.7); ALKALINE PHOSPHATASE 79 U/L (46-116); ANION GAP 8 mmol/L (5-15); BILIRUBIN,TOTAL 0.2 MG/DL (0.2-1.0); BLOOD UREA NITROGEN 19 mg/dL (7-18); CALCIUM 9.5 MG/DL (8.5-10.1); CARBON DIOXIDE 30 MMOL/L (21-32); CHLORIDE 101 MMOL/L (98-107); CREATININE 0.8 MG/DL (0.55-1.30); POTASSIUM 4.7 MMOL/L (3.5-5.1); SODIUM 139 MMOL/L (136-145)
--- NOTE | 2019-06-01 07:23 | NUR ---
NURSE NOTES: Received new medication orders from Dr. Sargent. See orders for details.
--- NOTE | 2019-06-01 07:58 | NUR ---
NURSE NOTES: Received orders from Dr. Troy. See orders for details.
[2019-06-01 08:00] VITALS: BP 135/68
--- NOTE | 2019-06-01 08:00 | NUR ---
NURSE NOTES: received report from RAUL hudson. patient in bed, A&Ox4, no respiratory distress noted with 2l via NC . no pain at this time. IV on RAC 20 intact. new order of NS 75/hr for hgb 18.2 skin intact. breathing treatment as ordered. bed in the lowest position and locked. call light within reach. will continue to provide plan of care.
[2019-06-01] MEDS ORDERED: ZyPREXA Zydis 10mg tab ORAL SCH (09:00)
[2019-06-01 09:32] LABS: ASPARTATE AMINO TRANSFERASE 19 U/L (15-37)
[2019-06-01] MEDS: Solu-MEDROL 40mg Inj IVP SCH ×3 (10:07→21:35)
[2019-06-01] MEDS: Metoprolol Succinate XL 100mg tab ORAL SCH (10:08)
[2019-06-01] MEDS: Depakote ER 500mg tab ORAL SCH ×2 (10:08→17:16)
[2019-06-01 12:00] VITALS: BP 139/68
[2019-06-01 16:00] VITALS: BP 122/65
--- NOTE | 2019-06-01 16:00 | Consultation ---
DATE OF CONSULTATION: 06/01/2019 INFECTIOUS DISEASE CONSULTATION CONSULTING PHYSICIAN: Migel Cohen M.D. PRIMARY ATTENDING PHYSICIAN: Margot Dutta M.D. REASON FOR CONSULT: COPD exacerbation. HISTORY OF PRESENT ILLNESS: This is a 68-year-old white female who lives in a board and care facility transferred because of shortness of breath, cough, and sputum production. PAST MEDICAL HISTORY: Significant for hypertension, schizoaffective disorder, COPD, dyslipidemia, and hypothyroidism. The patient has a previous hospitalization in May 2018 because of COPD exacerbation. ALLERGIES: No known drug allergies. MEDICATIONS: Amlodipine, Depakote, metoprolol, methylprednisone, Levaquin, levothyroxine, albuterol and ipratropium inhaler, fluphenazine, Zyprexa, and Tylenol. SOCIAL HISTORY: Single, lives in a board and [facility]. Smokes one pack of cigarettes a day. REVIEW OF SYSTEMS: No fever. No chills. No cough, but has shortness of breath. No nausea. No vomiting. No dysuria. PHYSICAL EXAMINATION: VITAL SIGNS: Temperature 98.2, pulse 84, and blood pressure 135/68. GENERAL APPEARANCE: No acute distress. Well developed. HEAD AND NECK: Getting oxygen by nasal cannula. Lips are little purplish color. HEART: Normal rate. LUNGS: Decreased sounds bilaterally. ABDOMEN: Soft and nontender. EXTREMITIES: No edema, has bilateral sequential compression device. NEUROLOGIC: Awake, alert, responsive. LABORATORY AND DIAGNOSTIC DATA: Sodium 139, potassium 4.7, chloride 107, bicarb 30, BUN 19, and creatinine 0.8. Glucose 164. WBC 8.2, hemoglobin 18.2, hematocrit 51.7, and platelets 191,000. UA was negative. Chest x-ray also did not show any acute process. IMPRESSION: Chronic obstructive pulmonary disease exacerbation. She has polycythemia likely because of COPD. She has schizoaffective disorder, hypothyroidism, dyslipidemia, and hypertension. RECOMMENDATION: We will continue with Levaquin. We will follow up the labs. At the end of my exam, I thank Dr. Dutta for involving me in the care of this patient. Migel Cohen M.D. DR: ARMIN JOB#: [id number] CC:
--- NOTE | 2019-06-01 17:15 | NUR ---
CASE MANAGEMENT: INITIAL REVIEW 68YR OLD FEMALE BIBA FROM [facility] CC: ABNORMAL LABS SI:COPD WITH EXACERBATION 97.7 73 19 119/73 98% ON RA H/H 19.4/53.9 CO2 33 IS:ALBUTEROL HHN X1 PREDNISONE PO X1 CHEST X-RAY \: 3E MED SURG UNIT DCP: [facility] WHEN MEDICALLY CLEAR
--- NOTE | 2019-06-01 19:14 | NUR ---
NURSE NOTES: Received report from RAUL Antoine. Pt is awake, lying semi-montemayor's; comfortably resting. No signs of acute distress noted. Pt denies any pain at this time. AOx4; able to make needs known. Checked IV site; patent and flushed. No erythema, bleeding, or infiltration noted. Bed at lowest position. Brakes on. Siderails up x2. Call light within reach. Will continue to monitor.
--- NOTE | 2019-06-01 19:46 | Consultation ---
DATE OF CONSULTATION: 06/01/2019 PULMONARY CONSULTATION CONSULTING PHYSICIAN: Larry Sargent M.D. HISTORY OF PRESENT ILLNESS: This is a 68-year-old female who is a [facility]. She came to the hospital with shortness of breath, cough, and chest congestion. She denied any fever. She denied any purulent phlegm production. The patient admits to chronic tobacco use. PAST MEDICAL HISTORY: Probable underlying COPD, psych disorder, and history of polycythemia. ALLERGIES: None. REVIEW OF SYSTEMS: Denies any headaches, hematemesis, melena, hematochezia, or weight loss. HOME MEDICATIONS: Reviewed and reconciled in the chart. PHYSICAL EXAMINATION: GENERAL: Reveals a 68-year-old female. VITAL SIGNS: Blood pressure 120/70, heart rate 84, respirations 20. She is afebrile. HEENT: Unremarkable. CHEST: Decreased breath sounds bilaterally. CARDIAC: Normal heart sounds. ABDOMEN: Soft. EXTREMITIES: There is no edema. NEUROLOGIC: Nonfocal. LABORATORY DATA: Laboratory testing is unremarkable except for hemoglobin of 18 and glucose 164. Urinalysis negative. Coags negative. IMAGING STUDIES: She underwent a chest x-ray, which shows evidence of clear lung beltran bilaterally. IMPRESSION: 1. Chronic obstructive pulmonary disease exacerbation. 2. Polycythemia. DISCUSSION: Admitted to the hospital. Reviewed current medications and care. Broad spectrum antibiotics. Breathing treatments. IV steroids. IV fluids. We will follow carefully. Larry Sargent M.D. DR: GEORGE JOB#: [id number] CC:
[2019-06-01 20:00] VITALS: BP 140/74
--- NOTE | 2019-06-01 21:59 | Consultation ---
History of Present Illness General Chief Complaint: Abnormal Labs Present Illness Allergies: Coded Allergies: No Known Allergies (Unverified , 05/22/18) Medication History Scheduled Amlodipine Besylate* (Amlodipine Besylate*), 10 MG ORAL DAILY, (Reported) Atorvastatin Calcium* (Atorvastatin Calcium*), 10 MG ORAL BEDTIME, (Reported) Divalproex Sodium (Divalproex Sodium Er), 500 MG PO BID, (Reported) Esomeprazole Magnesium (Nexium), 20 MG ORAL DAILY, (Reported) Fluoxetine Hcl* (Fluoxetine Hcl*), 60 MG ORAL DAILY, (Reported) Fluphenazine HCl (Fluphenazine HCl), 10 MG ORAL HS, (Reported) Fluphenazine Hcl* (Prolixin*), 5 MG ORAL HS, (Reported) Insulin Aspart (Novolog), SUBQ AC+HS, (Reported) Ipratropium/Albuterol Sulfate (DuoNeb 0.5-3(2.5)mg/3ml), 3 ML HHN Q6HR, ( Reported) Levothyroxine Sodium (Synthroid), 50 MCG ORAL DAILY, (Reported) Lorazepam* (Lorazepam*), 2 MG ORAL Q4HR, (Reported) Metoprolol Succinate* (Metoprolol Succinate*), 100 MG ORAL DAILY, (Reported) Olanzapine (Olanzapine), 10 MG ORAL BID, (Reported) Omeprazole (Omeprazole), 20 MG ORAL DAILY, (Reported) Rosuvastatin Calcium* (Crestor*), 5 MG ORAL DAILY, (Reported) Scheduled PRN Polyethylene Glycol 3350* (Miralax*), 17 GM ORAL DAILY PRN for Constipation, ( Reported) Zolpidem Tartrate* (Zolpidem Tartrate*), 5 MG ORAL BEDTIME PRN for Insomnia, ( Reported) Discontinued Medications Docusate Sod/Senna (Docusate Sodium-Senna Tablet), 1 CAP ORAL TWICE A DAY, ( Reported) Discontinued Reason: Therapy completed Fluphenazine Hcl* (Prolixin*), 5 MG ORAL DAILY, (Reported) Discontinued Reason: Therapy completed Heparin Sod (Porcine) (Heparin Sodium*), 5,000 UNITS SUBQ EVERY 12 HOURS, ( Reported) Discontinued Reason: Therapy completed Levothyroxine Sodium* (Levothyroxine Sodium*), 50 MCG ORAL AM, (Reported) Discontinued Reason: Therapy completed Lorazepam* (Lorazepam*), 1 MG ORAL Q4H, (Reported) Discontinued Reason: Therapy completed Olanzapine* (Zyprexa*), 15 MG ORAL QHS, (Reported) Discontinued Reason: Therapy completed Temazepam (Temazepam*), 15 MG ORAL BEDTIME, (Reported) Discontinued Reason: Therapy completed Unable to Obtain Medications (Unable To Obtain Meds), (Reported) Discontinued Reason: Therapy completed Patient History Healthcare decision maker Resuscitation status Advanced Directive on File Physical Exam Last 24 Hour Vital Signs Date Time Temp Pulse Resp B/P (MAP) Pulse Ox O2 Delivery O2 Flow Rate FiO2 06/01/19 19:50 90 Nasal Cannula 2.0 28 06/01/19 19:49 87 18 94 Nasal Cannula 2.0 28 84 18 90 06/01/19 16:00 98.1 88 18 122/65 (84) 90 06/01/19 13:56 90 18 95 Nasal Cannula 2.0 28 89 18 90 06/01/19 12:00 98.3 93 20 139/68 (91) 90 06/01/19 10:08 84 135/68 06/01/19 10:08 84 135/68 06/01/19 09:00 Nasal Cannula 2.0 06/01/19 08:00 98.2 84 18 135/68 (90) 94 06/01/19 07:49 81 20 95 Nasal Cannula 2.0 28 79 18 93 06/01/19 07:39 93 Nasal Cannula 2.0 28 06/01/19 04:00 98.4 84 18 130/50 (76) 94 06/01/19 01:00 83 20 93 Nasal Cannula 2.0 28 78 18 90 06/01/19 01:00 88 Nasal Cannula 2.0 28 06/01/19 00:00 97.5 72 18 125/72 (89) 92 05/31/19 22:16 Nasal Cannula 2.0 Intake and Output 05/31/19 06/01/19 19:00 07:00 Output Total 0 ml Balance 0 ml Output Urine Total 0 ml # Voids 2 # Bowel Movements 1 Laboratory Tests Test 06/01/19 05:10 White Blood Count 8.2 K/UL (4.8-10.8) Red Blood Count 5.62 M/UL (4.20-5.40) H Hemoglobin 18.2 G/DL (12.0-16.0) *H Hematocrit 51.7 % (37.0-47.0) H Mean Corpuscular Volume 92 FL (80-99) Mean Corpuscular Hemoglobin 32.3 PG (27.0-31.0) H Mean Corpuscular Hemoglobin Concent 35.2 G/DL (32.0-36.0) Red Cell Distribution Width 11.3 % (11.6-14.8) L Platelet Count 191 K/UL (150-450) Mean Platelet Volume 7.5 FL (6.5-10.1) Neutrophils (%) (Auto) 73.2 % (45.0-75.0) Lymphocytes (%) (Auto) 20.7 % (20.0-45.0) Monocytes (%) (Auto) 5.5 % (1.0-10.0) Eosinophils (%) (Auto) 0.1 % (0.0-3.0) Basophils (%) (Auto) 0.5 % (0.0-2.0) Sodium Level 139 MMOL/L (136-145) Potassium Level 4.7 MMOL/L (3.5-5.1) Chloride Level 101 MMOL/L (98-107) Carbon Dioxide Level 30 MMOL/L (21-32) Anion Gap 8 mmol/L (5-15) Blood Urea Nitrogen 19 mg/dL (7-18) H Creatinine 0.8 MG/DL (0.55-1.30) Estimat Glomerular Filtration Rate > 60 mL/min (>60) Glucose Level 164 MG/DL (74-106) H Calcium Level 9.5 MG/DL (8.5-10.1) Total Bilirubin 0.2 MG/DL (0.2-1.0) Aspartate Amino Transf (AST/SGOT) 19 U/L (15-37) Alanine Aminotransferase (ALT/SGPT) 18 U/L (12-78) Alkaline Phosphatase 79 U/L (46-116) Total Protein 7.1 G/DL (6.4-8.2) Albumin 3.1 G/DL (3.4-5.0) L Globulin 4.0 g/dL Albumin/Globulin Ratio 0.8 (1.0-2.7) L Height (Feet): 5 Height (Inches): 4.00 Weight (Pounds): 160 Medications Current Medications Medications (Trade) Dose Ordered Sig/Salty Route PRN Reason Start Time Stop Time Status Last Admin Dose Admin Acetaminophen (Tylenol) 650 mg Q4H PRN ORAL Mild Pain/Temp > 100.5 05/31/19 22:15 06/30/19 22:14 Albuterol/ Ipratropium (Albuterol/ Ipratropium) 3 ml Q6HRT HHN 06/01/19 01:00 06/06/19 00:59 06/01/19 19:49 Amlodipine Besylate (Norvasc) 10 mg DAILY ORAL 06/01/19 09:00 07/01/19 08:59 06/01/19 10:08 Divalproex Sodium (Depakote ER) 500 mg BID ORAL 06/01/19 09:00 07/01/19 08:59 06/01/19 17:16 Fluphenazine HCl (Prolixin) 10 mg BEDTIME ORAL 05/31/19 23:30 06/30/19 23:29 06/01/19 21:35 Levofloxacin 100 ml @ 100 mls/hr Q24H IVPB 06/01/19 09:00 06/08/19 08:59 06/01/19 10:07 Levothyroxine Sodium (Synthroid) 50 mcg DAILY@0630 ORAL 06/01/19 06:30 07/01/19 06:29 06/01/19 05:32 Methylprednisolone Sodium Succinate (Solu-MEDROL) 40 mg Q6H IVP 06/01/19 09:00 07/01/19 08:59 06/01/19 21:35 Metoprolol Succinate (Toprol XL) 100 mg DAILY ORAL 06/01/19 09:00 07/01/19 08:59 06/01/19 10:08 Olanzapine (ZyPREXA) 10 mg BID ORAL 05/31/19 23:15 06/30/19 23:14 06/01/19 17:16 Sodium Chloride 1,000 ml @ 75 mls/hr [id number] IV 06/01/19 08:00 07/01/19 07:59 06/01/19 21:36 Zolpidem Tartrate (Ambien) 5 mg BEDTIME PRN ORAL Insomnia 05/31/19 23:00 06/07/19 22:59 Assessment/Plan Assessment/Plan: Hematology Consultation RFC: Elevated d-dimer, polycythemia REQ MD: Grace Dutta DOS: 06/01/19 ID 68y old female with a alf facility for low oxygen saturations, as well as hemoptysis this am. The patient herself has no specific complaints. The patient is sleepy but can answer basic yes or no questions. There is no fever or chills. Bloody tinged cough noted. there is no chest pain or shortness of breath. There are no other complaints. Noted to have a elevated d- dimer, pulm and heme were consulted. Pulm was consulted, and id, has evaluated the patient, and cxr imaging noted, admitted for copd exacberation. Allergies: No Known Allergies (Unverified , 05/22/18) Past Medical History: see triage record, HTN, psych hx Social History: Denies: smoking, alcohol use, drug use Reviewed Nursing Documentation: PMH: Agreed; PSxH: Agreed Past Medical History: No Stated History ROS (review of systems): Constitutional: No fever, no chills, no night sweats, no fatigue Skin: No rashes, lumps, itchiness, dryness HEENT: No MADRID, ear ache, visual changes, double vision, nosebleeds Breasts: No lumps, pain, discharge Pulmonary: No cough, sputum, shortness of breath, coughing up blood Cardiovascular: No chest pain, tightness, palpitations, syncope, PND GI: No nausea, vomiting, diarrhea, melena, hematochezia, change in appetite, : No dysuria, frequency, urgency, urinary incontinence, foamy urine Musculoskeletal: No joint swelling or muscle pain, trauma, back pain Neurologic: No dizziness, fainting, seizures, changes in smell or taste Psychiatric: No nervousness, stress, or depression, anxiety, hallucinations Endocrine: No weight change, heat or cold intolerance, tremor, insomnia Physical Exam: Vitals: reviewed General: NAD Neck: supple Chest: clear breath sounds bilaterally Cardiovascular: RRR, no s3, s4 Abdomen: soft, nontender, nd Extremities: no cce, normal range of motion Mental: alert Labs: noted Imaging: reviewed in emr Assessment and Recs: # Secondary polycythemia or erythrocytosis is likely is related to dehydration , volume down, in this case is likely related to copd hx and exacerbation --> may need a pulmonary evaluation for above, cxr has been reviewed --> sleep study may be necessary as outpatient --> trend hgb if consistently remains elevated, consider JAK2 --> if remains elevated, consider outpatient phlebot # Elevated d-dimer hx - r/o dvt of lower ext, in prior was negative --> r/o pe as well wth cta study # Hypoxemia potentially copd related --> off bipap at this time --> bipap at night as per pulm # Hypercarbia # Benzodiazepine dependence # Psychosis # Sinus tach The timing of this note does not necessarily reflect the time of the patient was seen. Greatly appreciate consultation! Jorje Troy MD Jun 01, 2019 21:58
[2019-06-02] VITALS: BP 140/81
[2019-06-02] MEDS: Albuterol/Ipratropium 3ml neb HHN SCH ×4 (01:32→19:00)
[2019-06-02] MEDS: Solu-MEDROL 40mg Inj IVP SCH ×4 (03:00→20:24)
[2019-06-02 04:00] VITALS: BP 130/78
[2019-06-02 08:00] VITALS: BP 144/95
--- NOTE | 2019-06-02 08:00 | NUR ---
NURSE NOTES: Received report from Jaquelin CARTER, pt a/a/o x4 laying in bed with no signs of distress or other issues at this time. IV on the right AC gauge: 20 running NS@ 75ml/hr. call light within reach, bed in lowest position, side rales up x2. I will f/u as needed.
--- NOTE | 2019-06-02 08:24 | NUR ---
HAND-OFF: Report given to RAUL Lyles. Pt is awake and in stable condition. Plan of care endorsed.
[2019-06-02] MEDS: OLANZapine 10mg tab ORAL SCH ×2 (10:20→18:29)
[2019-06-02] MEDS: Metoprolol Succinate XL 100mg tab ORAL SCH (10:21)
[2019-06-02] MEDS: Depakote ER 500mg tab ORAL SCH ×2 (10:21→18:29)
--- NOTE | 2019-06-02 11:53 | Pulmonology Progress Note ---
Assessment/Plan Assessment/Plan IMPRESSION: 1. Chronic obstructive pulmonary disease exacerbation. 2. Polycythemia. DISCUSSION: Continue antibiotics. Breathing treatments. IV steroids. IV fluids. I will follow carefully. Larry Sargent M.D. Subjective Interval Events: Feeling better Constitutional: Reports: no symptoms HEENT: Repors: no symptoms Respiratory: Reports: no symptoms Cardiovascular: Reports: no symptoms Gastrointestinal/Abdominal: Reports: no symptoms Genitourinary: Reports: no symptoms Allergies: Coded Allergies: No Known Allergies (Unverified , 05/22/18) Objective Last 24 Hour Vital Signs Date Time Temp Pulse Resp B/P (MAP) Pulse Ox O2 Delivery O2 Flow Rate FiO2 06/02/19 10:21 102 144/95 06/02/19 10:20 102 144/95 06/02/19 07:32 90 Nasal Cannula 2.0 28 06/02/19 07:31 88 20 95 Nasal Cannula 2.0 28 76 16 90 06/02/19 04:00 97.2 88 20 130/78 (95) 90 06/02/19 01:32 85 18 95 Nasal Cannula 2.0 28 81 18 89 06/02/19 00:00 97.3 85 16 140/81 (100) 89 06/01/19 21:00 Nasal Cannula 2.0 06/01/19 20:00 98.0 85 20 140/74 (96) 89 06/01/19 19:50 90 Nasal Cannula 2.0 28 06/01/19 19:49 87 18 94 Nasal Cannula 2.0 28 84 18 90 06/01/19 16:00 98.1 88 18 122/65 (84) 90 06/01/19 13:56 90 18 95 Nasal Cannula 2.0 28 89 18 90 06/01/19 12:00 98.3 93 20 139/68 (91) 90 Intake and Output 06/01/19 06/02/19 19:00 07:00 Intake Total 1000 ml 450 ml Balance 1000 ml 450 ml Intake Oral 300 ml 450 ml IV Total 700 ml # Voids 3 4 General Appearance: no acute distress HEENT: normocephalic Respiratory/Chest: chest wall non-tender, decreased breath sounds Cardiovascular: normal peripheral pulses, normal rate Abdomen: normal bowel sounds Microbiology Date/Time Source Procedure Growth Status 05/31/19 15:00 Nasal Nares MRSA Culture - Final NO METHICILLIN RESISTANT STAPH AUREUS... Complete 05/31/19 15:00 Rectum VRE Culture - Final NO VANCOMYCIN RESISTANT ENTEROCOCCUS ... Complete 05/31/19 15:00 Rectum Received Current Medications Medications (Trade) Dose Ordered Sig/Salty Route PRN Reason Start Time Stop Time Status Last Admin Dose Admin Acetaminophen (Tylenol) 650 mg Q4H PRN ORAL Mild Pain/Temp > 100.5 05/31/19 22:15 06/30/19 22:14 Albuterol/ Ipratropium (Albuterol/ Ipratropium) 3 ml Q6HRT HHN 06/01/19 01:00 06/06/19 00:59 06/02/19 07:31 Amlodipine Besylate (Norvasc) 10 mg DAILY ORAL 06/01/19 09:00 07/01/19 08:59 06/02/19 10:20 Divalproex Sodium (Depakote ER) 500 mg BID ORAL 06/01/19 09:00 07/01/19 08:59 06/02/19 10:21 Fluphenazine HCl (Prolixin) 10 mg BEDTIME ORAL 05/31/19 23:30 06/30/19 23:29 06/01/19 21:35 Levofloxacin 100 ml @ 100 mls/hr Q24H IVPB 06/01/19 09:00 06/08/19 08:59 06/02/19 10:22 Levothyroxine Sodium (Synthroid) 50 mcg DAILY@0630 ORAL 06/01/19 06:30 07/01/19 06:29 06/02/19 06:04 Methylprednisolone Sodium Succinate (Solu-MEDROL) 40 mg Q6H IVP 06/01/19 09:00 07/01/19 08:59 06/02/19 10:21 Metoprolol Succinate (Toprol XL) 100 mg DAILY ORAL 06/01/19 09:00 07/01/19 08:59 06/02/19 10:21 Olanzapine (ZyPREXA) 10 mg BID ORAL 05/31/19 23:15 06/30/19 23:14 06/02/19 10:20 Sodium Chloride 1,000 ml @ 75 mls/hr [id number] IV 06/01/19 08:00 07/01/19 07:59 06/01/19 21:36 Zolpidem Tartrate (Ambien) 5 mg BEDTIME PRN ORAL Insomnia 05/31/19 23:00 06/07/19 22:59 Larry Sargent MD Jun 02, 2019 11:53
[2019-06-02 12:00] VITALS: BP 117/65
--- NOTE | 2019-06-02 15:32 | General Progress Note ---
Assessment/Plan Problem List: (1) Schizoaffective disorder ICD Codes: F25.9 - Schizoaffective disorder, unspecified SNOMED: 24860501 (2) Hypercapnic respiratory failure, chronic ICD Codes: J96.12 - Chronic respiratory failure with hypercapnia SNOMED: 243477561 (3) Dysphasia ICD Codes: R47.02 - Dysphasia SNOMED: 53788440 (4) COPD exacerbation ICD Codes: J44.1 - Chronic obstructive pulmonary disease with (acute) exacerbation SNOMED: 868001462 (5) Hypoalbuminemia ICD Codes: E88.09 - Other disorders of plasma-protein metabolism, not elsewhere classified SNOMED: 740768468 Status: progressing Assessment/Plan: afebrile sob cough copd bronchitis elevated hb most likely due to smoking reviewed chart Subjective ROS Limited/Unobtainable: Yes Allergies: Coded Allergies: No Known Allergies (Unverified , 05/22/18) Objective Last 24 Hour Vital Signs Date Time Temp Pulse Resp B/P (MAP) Pulse Ox O2 Delivery O2 Flow Rate FiO2 06/02/19 10:21 102 144/95 06/02/19 10:20 102 144/95 06/02/19 07:32 90 Nasal Cannula 2.0 28 06/02/19 07:31 88 20 95 Nasal Cannula 2.0 28 76 16 90 06/02/19 04:00 97.2 88 20 130/78 (95) 90 06/02/19 01:32 85 18 95 Nasal Cannula 2.0 28 81 18 89 06/02/19 00:00 97.3 85 16 140/81 (100) 89 06/01/19 21:00 Nasal Cannula 2.0 06/01/19 20:00 98.0 85 20 140/74 (96) 89 06/01/19 19:50 90 Nasal Cannula 2.0 28 06/01/19 19:49 87 18 94 Nasal Cannula 2.0 28 84 18 90 06/01/19 16:00 98.1 88 18 122/65 (84) 90 Intake and Output 06/01/19 06/02/19 19:00 07:00 Intake Total 1000 ml 450 ml Balance 1000 ml 450 ml Intake Oral 300 ml 450 ml IV Total 700 ml # Voids 3 4 Height (Feet): 5 Height (Inches): 4.00 Weight (Pounds): 160 Respiratory/Chest: lungs clear Abdomen: soft Margot Dutta MD Jun 02, 2019 15:32
[2019-06-02 16:00] VITALS: BP 127/69
--- NOTE | 2019-06-02 19:22 | NUR ---
HAND-OFF: Report given to Adán CARTER, pt in stable condition. - During my shift pt was able to stand to the BSC with staff assistance.
--- NOTE | 2019-06-02 19:30 | NUR ---
NURSE NOTES: Receive a report from RAUL Lyles. Round is done. Pt is awake and alert, without acute distress noted. No respiratory distress noted but intermittent productive cough noted. No dyspnea noted. No wheezing noted. Denies pain. IV fluid is running on Rt. AC. Provide fall precautions. Call light within reach. Will continue to monitor.
[2019-06-02 20:00] VITALS: BP 120/70
--- NOTE | 2019-06-02 20:00 | NUR ---
NURSE NOTES: Spo2 89% in RA. No respiratory distress noted. Kept MADRID elevated. Call RT for breathing treatment. Will continue to monitor.
--- NOTE | 2019-06-02 22:00 | NUR ---
NURSE NOTES: After breathing treatment, Spo2 went up to 95%. Noted incontinence. Provide perineal care and kept dry and clean. Skin is intact. Will continue to monitor.
[2019-06-03] VITALS: BP 125/72
[2019-06-03] MEDS: Albuterol/Ipratropium 3ml neb HHN SCH ×4 (02:02→19:31)
[2019-06-03] MEDS: Solu-MEDROL 40mg Inj IVP SCH ×4 (02:20→20:28)
[2019-06-03] MEDS: Zolpidem 5mg tab ORAL PRN ×2 (02:20→21:49)
[2019-06-03 04:30] VITALS: BP 115/62
--- NOTE | 2019-06-03 07:15 | NUR ---
HAND-OFF: Report given to RAUL Lyles.
[2019-06-03 08:00] VITALS: BP 135/72
--- NOTE | 2019-06-03 08:11 | NUR ---
NURSE NOTES: Received report from Kellieo RN, pt a/a/o seating in bed eating breakfast with no signs of distress or other issues at this time. IV on the right FA gauge#22 running NS@75ml/hr. call light within reach, bed in lowest position. side rales up x2. I will f/u as needed.
[2019-06-03] MEDS: Metoprolol Succinate XL 100mg tab ORAL SCH (09:22)
[2019-06-03] MEDS: OLANZapine 10mg tab ORAL SCH ×2 (09:22→18:06)
[2019-06-03] MEDS: Depakote ER 500mg tab ORAL SCH ×2 (09:22→18:06)
--- NOTE | 2019-06-03 11:41 | Hematology/Onc Progress Note ---
Assessment/Plan Assessment/Plan Assessment and Recs: # Secondary polycythemia or erythrocytosis is likely is related to dehydration , volume down, in this case is likely related to copd hx and exacerbation --> may need a pulmonary evaluation for above, cxr has been reviewed --> sleep study may be necessary as outpatient --> trend hgb if consistently remains elevated, consider JAK2 --> if remains elevated, consider outpatient phlebot --> trend hgb 19-->18 # Elevated d-dimer hx - r/o dvt of lower ext, in prior was negative --> r/o pe as well wth cta study--> prior study was negative # Hypoxemia potentially copd related --> off bipap at this time --> bipap at night as per pulm # Hypercarbia # Benzodiazepine dependence # Psychosis # Sinus tach The timing of this note does not necessarily reflect the time of the patient was seen. Greatly appreciate consultation! Subjective Allergies: Coded Allergies: No Known Allergies (Unverified , 05/22/18) Subjective 06/03: awake and alert, no acute events, steroids, nc Objective Objective Current Medications Medications (Trade) Dose Ordered Sig/Salty Route PRN Reason Start Time Stop Time Status Last Admin Dose Admin Acetaminophen (Tylenol) 650 mg Q4H PRN ORAL Mild Pain/Temp > 100.5 05/31/19 22:15 06/30/19 22:14 Albuterol/ Ipratropium (Albuterol/ Ipratropium) 3 ml Q6HRT HHN 06/01/19 01:00 06/06/19 00:59 06/03/19 07:38 Amlodipine Besylate (Norvasc) 10 mg DAILY ORAL 06/01/19 09:00 07/01/19 08:59 06/03/19 09:22 Divalproex Sodium (Depakote ER) 500 mg BID ORAL 06/01/19 09:00 07/01/19 08:59 06/03/19 09:22 Fluphenazine HCl (Prolixin) 10 mg BEDTIME ORAL 05/31/19 23:30 06/30/19 23:29 06/02/19 20:24 Levofloxacin 100 ml @ 100 mls/hr Q24H IVPB 06/01/19 09:00 06/08/19 08:59 06/03/19 09:22 Levothyroxine Sodium (Synthroid) 50 mcg DAILY@0630 ORAL 06/01/19 06:30 07/01/19 06:29 06/03/19 06:33 Methylprednisolone Sodium Succinate (Solu-MEDROL) 40 mg Q6H IVP 06/01/19 09:00 07/01/19 08:59 06/03/19 09:22 Metoprolol Succinate (Toprol XL) 100 mg DAILY ORAL 06/01/19 09:00 07/01/19 08:59 06/03/19 09:22 Olanzapine (ZyPREXA) 10 mg BID ORAL 05/31/19 23:15 06/30/19 23:14 06/03/19 09:22 Sodium Chloride 1,000 ml @ 75 mls/hr [id number] IV 06/01/19 08:00 07/01/19 07:59 06/03/19 06:35 Zolpidem Tartrate (Ambien) 5 mg BEDTIME PRN ORAL Insomnia 05/31/19 23:00 06/07/19 22:59 06/03/19 02:20 Last 24 Hour Vital Signs Date Time Temp Pulse Resp B/P (MAP) Pulse Ox O2 Delivery O2 Flow Rate FiO2 06/03/19 09:22 83 135/72 06/03/19 09:22 83 135/72 06/03/19 09:00 Nasal Cannula 2.0 06/03/19 08:00 97.6 83 18 135/72 (93) 94 06/03/19 07:39 91 Nasal Cannula 2.0 28 06/03/19 07:39 81 20 97 Nasal Cannula 2.0 28 78 17 91 06/03/19 04:30 97.4 79 20 115/62 (79) 94 06/03/19 02:02 88 20 95 Nasal Cannula 2.0 28 80 17 90 06/03/19 00:00 97.6 72 20 125/72 (89) 90 06/02/19 21:04 92 Nasal Cannula 2.0 28 06/02/19 21:00 Nasal Cannula 2.0 06/02/19 20:00 97.5 81 20 120/70 (87) 89 06/02/19 16:00 98.3 90 19 127/69 (88) 95 06/02/19 12:00 97.3 97 19 117/65 (82) 96 06/02/19 10:21 102 144/95 06/02/19 10:20 102 144/95 06/02/19 09:00 Room Air 06/02/19 08:00 97.6 102 18 144/95 (111) 96 06/02/19 07:32 90 Nasal Cannula 2.0 28 06/02/19 07:31 88 20 95 Nasal Cannula 2.0 28 76 16 90 06/02/19 04:00 97.2 88 20 130/78 (95) 90 06/02/19 01:32 85 18 95 Nasal Cannula 2.0 28 81 18 89 06/02/19 00:00 97.3 85 16 140/81 (100) 89 06/01/19 21:00 Nasal Cannula 2.0 06/01/19 20:00 98.0 85 20 140/74 (96) 89 06/01/19 19:50 90 Nasal Cannula 2.0 28 06/01/19 19:49 87 18 94 Nasal Cannula 2.0 28 84 18 90 06/01/19 16:00 98.1 88 18 122/65 (84) 90 06/01/19 13:56 90 18 95 Nasal Cannula 2.0 28 89 18 90 06/01/19 12:00 98.3 93 20 139/68 (91) 90 Intake and Output 06/02/19 06/03/19 19:00 07:00 Intake Total 1080 ml 1400 ml Balance 1080 ml 1400 ml Intake Oral 1080 ml 500 ml IV Total 900 ml # Voids 6 7 Labs Test 05/31/19 13:33 05/31/19 14:13 06/01/19 05:10 White Blood Count 8.4 K/UL (4.8-10.8) 8.2 K/UL (4.8-10.8) Red Blood Count 5.88 M/UL (4.20-5.40) 5.62 M/UL (4.20-5.40) Hemoglobin 19.4 G/DL (12.0-16.0) 18.2 G/DL (12.0-16.0) Hematocrit 53.9 % (37.0-47.0) 51.7 % (37.0-47.0) Mean Corpuscular Volume 92 FL (80-99) 92 FL (80-99) Mean Corpuscular Hemoglobin 32.9 PG (27.0-31.0) 32.3 PG (27.0-31.0) Mean Corpuscular Hemoglobin Concent 35.9 G/DL (32.0-36.0) 35.2 G/DL (32.0-36.0) Red Cell Distribution Width 10.8 % (11.6-14.8) 11.3 % (11.6-14.8) Platelet Count 220 K/UL (150-450) 191 K/UL (150-450) Mean Platelet Volume 6.4 FL (6.5-10.1) 7.5 FL (6.5-10.1) Neutrophils (%) (Auto) 53.0 % (45.0-75.0) 73.2 % (45.0-75.0) Lymphocytes (%) (Auto) 35.6 % (20.0-45.0) 20.7 % (20.0-45.0) Monocytes (%) (Auto) 8.7 % (1.0-10.0) 5.5 % (1.0-10.0) Eosinophils (%) (Auto) 1.8 % (0.0-3.0) 0.1 % (0.0-3.0) Basophils (%) (Auto) 1.0 % (0.0-2.0) 0.5 % (0.0-2.0) Prothrombin Time 10.7 SEC (9.30-11.50) Prothromb Time International Ratio 1.0 (0.9-1.1) Activated Partial Thromboplast Time 29 SEC (23-33) Sodium Level 139 MMOL/L (136-145) 139 MMOL/L (136-145) Potassium Level 4.1 MMOL/L (3.5-5.1) 4.7 MMOL/L (3.5-5.1) Chloride Level 99 MMOL/L (98-107) 101 MMOL/L (98-107) Carbon Dioxide Level 33 MMOL/L (21-32) 30 MMOL/L (21-32) Anion Gap 7 mmol/L (5-15) 8 mmol/L (5-15) Blood Urea Nitrogen 9 mg/dL (7-18) 19 mg/dL (7-18) Creatinine 0.8 MG/DL (0.55-1.30) 0.8 MG/DL (0.55-1.30) Estimat Glomerular Filtration Rate > 60 mL/min (>60) > 60 mL/min (>60) Glucose Level 107 MG/DL (74-106) 164 MG/DL (74-106) Calcium Level 9.7 MG/DL (8.5-10.1) 9.5 MG/DL (8.5-10.1) Total Bilirubin 0.3 MG/DL (0.2-1.0) 0.2 MG/DL (0.2-1.0) Aspartate Amino Transf (AST/SGOT) 17 U/L (15-37) 19 U/L (15-37) Alanine Aminotransferase (ALT/SGPT) 20 U/L (12-78) 18 U/L (12-78) Alkaline Phosphatase 87 U/L (46-116) 79 U/L (46-116) Total Protein 7.8 G/DL (6.4-8.2) 7.1 G/DL (6.4-8.2) Albumin 3.6 G/DL (3.4-5.0) 3.1 G/DL (3.4-5.0) Globulin 4.2 g/dL 4.0 g/dL Albumin/Globulin Ratio 0.9 (1.0-2.7) 0.8 (1.0-2.7) Urine Color Pale yellow Urine Appearance Clear Urine pH 7 (4.5-8.0) Urine Specific [place] 1.010 (1.005-1.035) Urine Protein Negative (NEGATIVE) Urine Glucose (UA) Negative (NEGATIVE) Urine Ketones Negative (NEGATIVE) Urine Blood Negative (NEGATIVE) Urine Nitrite Negative (NEGATIVE) Urine Bilirubin Negative (NEGATIVE) Urine Urobilinogen Normal MG/DL (0.0-1.0) Urine Leukocyte Esterase Negative (NEGATIVE) Height (Feet): 5 Height (Inches): 4.00 Weight (Pounds): 160 Objective Physical Exam: Vitals: reviewed General: NAD Neck: supple Chest: clear breath sounds bilaterally Cardiovascular: RRR, no s3, s4 Abdomen: soft, nontender, nd Extremities: no cce, normal range of motion Mental: alert Jorje Troy MD Jun 03, 2019 11:41
[2019-06-03 12:00] VITALS: BP 127/75
--- NOTE | 2019-06-03 13:11 | Pulmonology Progress Note ---
Assessment/Plan Assessment/Plan IMPRESSION: 1. Chronic obstructive pulmonary disease exacerbation. 2. Polycythemia. DISCUSSION: Continue antibiotics. Breathing treatments. IV steroids. IV fluids. I will follow carefully. Dc planning to home Larry Sargent M.D. Subjective Interval Events: None new Constitutional: Reports: no symptoms HEENT: Repors: no symptoms Respiratory: Reports: no symptoms Cardiovascular: Reports: no symptoms Gastrointestinal/Abdominal: Reports: no symptoms Allergies: Coded Allergies: No Known Allergies (Unverified , 05/22/18) Objective Last 24 Hour Vital Signs Date Time Temp Pulse Resp B/P (MAP) Pulse Ox O2 Delivery O2 Flow Rate FiO2 06/03/19 12:00 98.1 90 19 127/75 (92) 97 06/03/19 09:22 83 135/72 06/03/19 09:22 83 135/72 06/03/19 09:00 Nasal Cannula 2.0 06/03/19 08:00 97.6 83 18 135/72 (93) 94 06/03/19 07:39 91 Nasal Cannula 2.0 28 06/03/19 07:39 81 20 97 Nasal Cannula 2.0 28 78 17 91 06/03/19 04:30 97.4 79 20 115/62 (79) 94 06/03/19 02:02 88 20 95 Nasal Cannula 2.0 28 80 17 90 06/03/19 00:00 97.6 72 20 125/72 (89) 90 06/02/19 21:04 92 Nasal Cannula 2.0 28 06/02/19 21:00 Nasal Cannula 2.0 06/02/19 20:00 97.5 81 20 120/70 (87) 89 06/02/19 16:00 98.3 90 19 127/69 (88) 95 Intake and Output 06/02/19 06/03/19 19:00 07:00 Intake Total 1080 ml 1400 ml Balance 1080 ml 1400 ml Intake Oral 1080 ml 500 ml IV Total 900 ml # Voids 6 7 General Appearance: no acute distress HEENT: normocephalic Respiratory/Chest: chest wall non-tender, lungs clear Cardiovascular: normal peripheral pulses, normal rate Abdomen: normal bowel sounds Microbiology Date/Time Source Procedure Growth Status 05/31/19 15:00 Nasal Nares MRSA Culture - Final NO METHICILLIN RESISTANT STAPH AUREUS... Complete 05/31/19 15:00 Rectum VRE Culture - Final NO VANCOMYCIN RESISTANT ENTEROCOCCUS ... Complete 05/31/19 15:00 Rectum - Final NO CARBAPENEM-RESISTANT ENTEROBACTERI... Complete Current Medications Medications (Trade) Dose Ordered Sig/Salty Route PRN Reason Start Time Stop Time Status Last Admin Dose Admin Acetaminophen (Tylenol) 650 mg Q4H PRN ORAL Mild Pain/Temp > 100.5 05/31/19 22:15 06/30/19 22:14 Albuterol/ Ipratropium (Albuterol/ Ipratropium) 3 ml Q6HRT HHN 06/01/19 01:00 06/06/19 00:59 06/03/19 07:38 Amlodipine Besylate (Norvasc) 10 mg DAILY ORAL 06/01/19 09:00 07/01/19 08:59 06/03/19 09:22 Divalproex Sodium (Depakote ER) 500 mg BID ORAL 06/01/19 09:00 07/01/19 08:59 06/03/19 09:22 Fluphenazine HCl (Prolixin) 10 mg BEDTIME ORAL 05/31/19 23:30 06/30/19 23:29 06/02/19 20:24 Levofloxacin 100 ml @ 100 mls/hr Q24H IVPB 06/01/19 09:00 06/08/19 08:59 06/03/19 09:22 Levothyroxine Sodium (Synthroid) 50 mcg DAILY@0630 ORAL 06/01/19 06:30 07/01/19 06:29 06/03/19 06:33 Methylprednisolone Sodium Succinate (Solu-MEDROL) 40 mg Q6H IVP 06/01/19 09:00 07/01/19 08:59 06/03/19 09:22 Metoprolol Succinate (Toprol XL) 100 mg DAILY ORAL 06/01/19 09:00 07/01/19 08:59 06/03/19 09:22 Olanzapine (ZyPREXA) 10 mg BID ORAL 05/31/19 23:15 06/30/19 23:14 06/03/19 09:22 Sodium Chloride 1,000 ml @ 75 mls/hr [id number] IV 06/01/19 08:00 07/01/19 07:59 06/03/19 06:35 Zolpidem Tartrate (Ambien) 5 mg BEDTIME PRN ORAL Insomnia 05/31/19 23:00 06/07/19 22:59 06/03/19 02:20 Larry Sargent MD Jun 03, 2019 13:11
[2019-06-03 16:00] VITALS: BP 127/72
[2019-06-03] MEDS ORDERED: Milk of Magnesia 30ml Ud ORAL PRN (16:15)
[2019-06-03] MEDS: Docusate 100mg cap ORAL SCH (18:06)
--- NOTE | 2019-06-03 19:30 | NUR ---
NURSE NOTES: Receive a report from RAUL Lyles. Round is done. Pt is awake and lying in bed. No acute distress noted. Denies pain. No respiratory distress noted. On O2 2L NC with breathing treatment. Call light within reach. Will continue to monitor.
--- NOTE | 2019-06-03 19:37 | NUR ---
HAND-OFF: Report given to Marija CARTER, pt in stable condition.
[2019-06-03 20:00] VITALS: BP 124/65
--- NOTE | 2019-06-03 22:00 | NUR ---
NURSE NOTES: Clean up incontinence. Kept dry and clean. Skin is intact. Call light within reach. Will continue to monitor.
--- NOTE | 2019-06-03 22:11 | General Progress Note ---
Assessment/Plan Problem List: (1) Schizoaffective disorder ICD Codes: F25.9 - Schizoaffective disorder, unspecified SNOMED: 47774439 (2) Hypercapnic respiratory failure, chronic ICD Codes: J96.12 - Chronic respiratory failure with hypercapnia SNOMED: 783194244 (3) Dysphasia ICD Codes: R47.02 - Dysphasia SNOMED: 33666386 (4) COPD exacerbation ICD Codes: J44.1 - Chronic obstructive pulmonary disease with (acute) exacerbation SNOMED: 344421174 (5) Hypoalbuminemia ICD Codes: E88.09 - Other disorders of plasma-protein metabolism, not elsewhere classified SNOMED: 460403730 Status: progressing Assessment/Plan: no acute events no fever sob cough copd bronchitis elevated hb Subjective ROS Limited/Unobtainable: Yes Allergies: Coded Allergies: No Known Allergies (Unverified , 05/22/18) Objective Last 24 Hour Vital Signs Date Time Temp Pulse Resp B/P (MAP) Pulse Ox O2 Delivery O2 Flow Rate FiO2 06/03/19 20:00 97.0 74 18 124/65 (84) 91 06/03/19 19:31 90 Nasal Cannula 2.0 28 06/03/19 19:31 78 20 96 Nasal Cannula 2.0 28 76 18 90 06/03/19 16:00 98.7 79 18 127/72 (90) 98 06/03/19 12:00 98.1 90 19 127/75 (92) 97 06/03/19 09:22 83 135/72 06/03/19 09:22 83 135/72 06/03/19 09:00 Nasal Cannula 2.0 06/03/19 08:00 97.6 83 18 135/72 (93) 94 06/03/19 07:39 91 Nasal Cannula 2.0 28 06/03/19 07:39 81 20 97 Nasal Cannula 2.0 28 78 17 91 06/03/19 04:30 97.4 79 20 115/62 (79) 94 06/03/19 02:02 88 20 95 Nasal Cannula 2.0 28 80 17 90 06/03/19 00:00 97.6 72 20 125/72 (89) 90 Intake and Output 06/02/19 06/03/19 19:00 07:00 Intake Total 1080 ml 1400 ml Balance 1080 ml 1400 ml Intake Oral 1080 ml 500 ml IV Total 900 ml # Voids 6 7 Height (Feet): 5 Height (Inches): 4.00 Weight (Pounds): 160 Neck: non-tender Cardiovascular: normal rate Respiratory/Chest: lungs clear Abdomen: soft Margot Dutta MD Jun 03, 2019 22:11
[2019-06-04] MEDS: Albuterol/Ipratropium 3ml neb HHN SCH ×3 (00:17→13:47)
[2019-06-04] MEDS: Solu-MEDROL 40mg Inj IVP SCH ×2 (03:58→09:21)
[2019-06-04 04:00] VITALS: BP 127/77
--- NOTE | 2019-06-04 07:30 | NUR ---
HAND-OFF: Report given to Michelle/Alejandra Contreras. Round is done.
[2019-06-04 08:00] VITALS: BP 134/69
--- NOTE | 2019-06-04 08:29 | NUR ---
NURSE NOTES: Received am reports, and made rounds; patient is in the bed asleep and arousable. respiration is even and unlabored on O2 2l/min via NC. patient is able to exchange greeting with the nurse. noted with coughing and slight congestion on bilateral lungs, will notify RT for breathing TX. IV site 22 g on RFA is in-place; no warmth, tender and bleeding noted. place call Light within reach. encouraged patient to call for assist at any time; patient verbalized understanding.
[2019-06-04] MEDS ORDERED: Bisacodyl EC 5mg tab ORAL SCH (09:00)
[2019-06-04] MEDS: Metoprolol Succinate XL 100mg tab ORAL SCH (09:20)
[2019-06-04] MEDS: Docusate 100mg cap ORAL SCH (09:20)
[2019-06-04] MEDS: Depakote ER 500mg tab ORAL SCH (09:20)
[2019-06-04] MEDS: OLANZapine 10mg tab ORAL SCH (09:25)
--- NOTE | 2019-06-04 10:42 | Infectious Diseases Prog Note ---
Assessment/Plan Assessment/Plan IMPRESSION: Chronic obstructive pulmonary disease exacerbation. polycythemia schizoaffective disorder, hypothyroidism, dyslipidemia, hypertension. RECOMMENDATION: We will continue with Levaquin. Subjective ROS Limited/Unobtainable: No Constitutional: Reports: no symptoms Respiratory: Reports: no symptoms Cardiovascular: Reports: no symptoms Gastrointestinal/Abdominal: Reports: no symptoms Genitourinary: Reports: no symptoms Allergies: Coded Allergies: No Known Allergies (Unverified , 05/22/18) Objective Vital Signs Last 24 Hour Vital Signs Date Time Temp Pulse Resp B/P (MAP) Pulse Ox O2 Delivery O2 Flow Rate FiO2 06/04/19 09:20 89 134/69 06/04/19 09:20 89 134/69 06/04/19 08:37 90 Nasal Cannula 2.0 28 06/04/19 08:37 89 20 95 Nasal Cannula 4.0 36 85 20 90 06/04/19 08:00 97.9 63 18 134/69 (90) 90 06/04/19 04:00 97.5 69 18 127/77 (94) 90 06/04/19 00:18 75 18 96 Nasal Cannula 2.0 28 71 16 90 06/04/19 00:00 20 91 06/03/19 21:00 Nasal Cannula 2.0 06/03/19 20:00 97.0 74 18 124/65 (84) 91 06/03/19 19:31 90 Nasal Cannula 2.0 28 06/03/19 19:31 78 20 96 Nasal Cannula 2.0 28 76 18 90 06/03/19 16:00 98.7 79 18 127/72 (90) 98 06/03/19 12:00 98.1 90 19 127/75 (92) 97 Height (Feet): 5 Height (Inches): 4.00 Weight (Pounds): 160 General Appearance: no acute distress HEENT: mucous membranes moist Respiratory/Chest: other - oxygen by nasal cannula Cardiovascular: normal rate Abdomen: soft, non tender Extremities: other - bilateral SCD of legs Neurologic/Psychiatric: alert, responsive Current Medications Medications (Trade) Dose Ordered Sig/Salty Route PRN Reason Start Time Stop Time Status Last Admin Dose Admin Acetaminophen (Tylenol) 650 mg Q4H PRN ORAL Mild Pain/Temp > 100.5 05/31/19 22:15 06/30/19 22:14 Albuterol/ Ipratropium (Albuterol/ Ipratropium) 3 ml Q6HRT HHN 06/01/19 01:00 06/06/19 00:59 06/04/19 08:42 Amlodipine Besylate (Norvasc) 10 mg DAILY ORAL 06/01/19 09:00 07/01/19 08:59 06/04/19 09:20 Bisacodyl (Dulcolax) 10 mg DAILY ORAL 06/04/19 09:00 07/04/19 08:59 06/04/19 09:20 Divalproex Sodium (Depakote ER) 500 mg BID ORAL 06/01/19 09:00 07/01/19 08:59 06/04/19 09:20 Docusate Sodium (Colace) 100 mg TWICE A DAY ORAL 06/03/19 18:00 07/03/19 17:59 06/04/19 09:20 Fluphenazine HCl (Prolixin) 10 mg BEDTIME ORAL 05/31/19 23:30 06/30/19 23:29 06/03/19 20:28 Levofloxacin 100 ml @ 100 mls/hr Q24H IVPB 06/01/19 09:00 06/08/19 08:59 06/04/19 09:27 Levothyroxine Sodium (Synthroid) 50 mcg DAILY@0630 ORAL 06/01/19 06:30 07/01/19 06:29 06/04/19 06:41 Magnesium Hydroxide (Mom) 30 ml Q4H PRN ORAL Constipation 06/03/19 16:15 07/03/19 16:14 06/03/19 18:05 Methylprednisolone Sodium Succinate (Solu-MEDROL) 40 mg Q6H IVP 06/01/19 09:00 07/01/19 08:59 06/04/19 09:21 Metoprolol Succinate (Toprol XL) 100 mg DAILY ORAL 06/01/19 09:00 07/01/19 08:59 06/04/19 09:20 Olanzapine (ZyPREXA) 10 mg BID ORAL 05/31/19 23:15 06/30/19 23:14 06/04/19 09:25 Sodium Chloride 1,000 ml @ 75 mls/hr [id number] IV 06/01/19 08:00 07/01/19 07:59 06/03/19 20:29 Zolpidem Tartrate (Ambien) 5 mg BEDTIME PRN ORAL Insomnia 05/31/19 23:00 06/07/19 22:59 06/03/19 21:49 Migel Cohen MD Jun 04, 2019 10:42
--- NOTE | 2019-06-04 10:45 | Pulmonology Progress Note ---
Assessment/Plan Assessment/Plan IMPRESSION: 1. Chronic obstructive pulmonary disease exacerbation. 2. Polycythemia. DISCUSSION: Continue antibiotics. Breathing treatments. change to PO steroids. I will follow carefully. Dc planning to home Larry Sargent M.D. Subjective Interval Events: None new; feeling better Constitutional: Reports: no symptoms HEENT: Repors: no symptoms Respiratory: Reports: no symptoms Cardiovascular: Reports: no symptoms Gastrointestinal/Abdominal: Reports: no symptoms Allergies: Coded Allergies: No Known Allergies (Unverified , 05/22/18) Objective Last 24 Hour Vital Signs Date Time Temp Pulse Resp B/P (MAP) Pulse Ox O2 Delivery O2 Flow Rate FiO2 06/04/19 09:20 89 134/69 06/04/19 09:20 89 134/69 06/04/19 08:37 90 Nasal Cannula 2.0 28 06/04/19 08:37 89 20 95 Nasal Cannula 4.0 36 85 20 90 06/04/19 08:00 97.9 63 18 134/69 (90) 90 06/04/19 04:00 97.5 69 18 127/77 (94) 90 06/04/19 00:18 75 18 96 Nasal Cannula 2.0 28 71 16 90 06/04/19 00:00 20 91 06/03/19 21:00 Nasal Cannula 2.0 06/03/19 20:00 97.0 74 18 124/65 (84) 91 06/03/19 19:31 90 Nasal Cannula 2.0 28 06/03/19 19:31 78 20 96 Nasal Cannula 2.0 28 76 18 90 06/03/19 16:00 98.7 79 18 127/72 (90) 98 06/03/19 12:00 98.1 90 19 127/75 (92) 97 Intake and Output 06/03/19 06/04/19 19:00 07:00 Intake Total 1440 ml 1300 ml Balance 1440 ml 1300 ml Intake Oral 1440 ml 400 ml IV Total 900 ml # Voids 8 6 General Appearance: no acute distress HEENT: normocephalic Respiratory/Chest: chest wall non-tender, lungs clear Cardiovascular: normal peripheral pulses Current Medications Medications (Trade) Dose Ordered Sig/Salty Route PRN Reason Start Time Stop Time Status Last Admin Dose Admin Acetaminophen (Tylenol) 650 mg Q4H PRN ORAL Mild Pain/Temp > 100.5 05/31/19 22:15 06/30/19 22:14 Albuterol/ Ipratropium (Albuterol/ Ipratropium) 3 ml Q6HRT HHN 06/01/19 01:00 06/06/19 00:59 06/04/19 08:42 Amlodipine Besylate (Norvasc) 10 mg DAILY ORAL 06/01/19 09:00 07/01/19 08:59 06/04/19 09:20 Bisacodyl (Dulcolax) 10 mg DAILY ORAL 06/04/19 09:00 07/04/19 08:59 06/04/19 09:20 Divalproex Sodium (Depakote ER) 500 mg BID ORAL 06/01/19 09:00 07/01/19 08:59 06/04/19 09:20 Docusate Sodium (Colace) 100 mg TWICE A DAY ORAL 06/03/19 18:00 07/03/19 17:59 06/04/19 09:20 Fluphenazine HCl (Prolixin) 10 mg BEDTIME ORAL 05/31/19 23:30 06/30/19 23:29 06/03/19 20:28 Levofloxacin 100 ml @ 100 mls/hr Q24H IVPB 06/01/19 09:00 06/08/19 08:59 06/04/19 09:27 Levothyroxine Sodium (Synthroid) 50 mcg DAILY@0630 ORAL 06/01/19 06:30 07/01/19 06:29 06/04/19 06:41 Magnesium Hydroxide (Mom) 30 ml Q4H PRN ORAL Constipation 06/03/19 16:15 07/03/19 16:14 06/03/19 18:05 Methylprednisolone Sodium Succinate (Solu-MEDROL) 40 mg Q6H IVP 06/01/19 09:00 07/01/19 08:59 06/04/19 09:21 Metoprolol Succinate (Toprol XL) 100 mg DAILY ORAL 06/01/19 09:00 07/01/19 08:59 06/04/19 09:20 Olanzapine (ZyPREXA) 10 mg BID ORAL 05/31/19 23:15 06/30/19 23:14 06/04/19 09:25 Sodium Chloride 1,000 ml @ 75 mls/hr [id number] IV 06/01/19 08:00 07/01/19 07:59 06/03/19 20:29 Zolpidem Tartrate (Ambien) 5 mg BEDTIME PRN ORAL Insomnia 05/31/19 23:00 06/07/19 22:59 06/03/19 21:49 Larry Sargent MD Jun 04, 2019 10:45
--- NOTE | 2019-06-04 11:13 | Hematology/Onc Progress Note ---
Assessment/Plan Assessment/Plan Assessment and Recs: # Secondary polycythemia or erythrocytosis is likely is related to dehydration , volume down, in this case is likely related to copd hx and exacerbation --> may need a pulmonary evaluation for above, cxr has been reviewed --> sleep study may be necessary as outpatient --> trend hgb if consistently remains elevated, consider JAK2 --> if remains elevated, consider outpatient phlebot --> trend hgb 19-->18 # Elevated d-dimer hx - r/o dvt of lower ext, in prior was negative --> r/o pe as well wth cta study--> prior study was negative # Hypoxemia potentially copd related --> off bipap at this time --> bipap at night as per pulm # Hypercarbia # Benzodiazepine dependence # Psychosis # Sinus tach The timing of this note does not necessarily reflect the time of the patient was seen. Greatly appreciate consultation! Subjective Constitutional: Denies: no symptoms, chills, fever, malaise, weakness, other HEENT: Denies: no symptoms, eye pain, blurred vision, tearing, double vision, ear pain, ear discharge, nose pain, nose congestion, throat pain, throat swelling, mouth pain, mouth swelling, other Cardiovascular: Denies: no symptoms, chest pain, edema, irregular heart rate, lightheadedness, palpitations, syncope, other Respiratory: Denies: no symptoms, cough, shortness of breath, SOB with excertion, SOB at rest, sputum, wheezing, other Genitourinary: Denies: no symptoms, burning, discharge, frequency, flank pain, hematuria, incontinence, pain, urgency, other Endocrine: Denies: no symptoms, excessive sweating, flushing, intolerance to cold, intolerance to heat, increased hunger, increased thirst, increased urine, unexplained weight gain, unexplained weight loss, other Hematologic/Lymphatic: Denies: no symptoms, anemia, easy bleeding, easy bruising, adenopathy, other Allergies: Coded Allergies: No Known Allergies (Unverified , 05/22/18) Subjective 06/03: awake and alert, no acute events, steroids, nc 06/04: considering to dc home today, no bleeding Objective Objective Current Medications Medications (Trade) Dose Ordered Sig/Salty Route PRN Reason Start Time Stop Time Status Last Admin Dose Admin Acetaminophen (Tylenol) 650 mg Q4H PRN ORAL Mild Pain/Temp > 100.5 05/31/19 22:15 06/30/19 22:14 Albuterol/ Ipratropium (Albuterol/ Ipratropium) 3 ml Q6HRT HHN 06/01/19 01:00 06/06/19 00:59 06/04/19 08:42 Amlodipine Besylate (Norvasc) 10 mg DAILY ORAL 06/01/19 09:00 07/01/19 08:59 06/04/19 09:20 Bisacodyl (Dulcolax) 10 mg DAILY ORAL 06/04/19 09:00 07/04/19 08:59 06/04/19 09:20 Divalproex Sodium (Depakote ER) 500 mg BID ORAL 06/01/19 09:00 07/01/19 08:59 06/04/19 09:20 Docusate Sodium (Colace) 100 mg TWICE A DAY ORAL 06/03/19 18:00 07/03/19 17:59 06/04/19 09:20 Fluphenazine HCl (Prolixin) 10 mg BEDTIME ORAL 05/31/19 23:30 06/30/19 23:29 06/03/19 20:28 Levofloxacin 100 ml @ 100 mls/hr Q24H IVPB 06/01/19 09:00 06/08/19 08:59 06/04/19 09:27 Levothyroxine Sodium (Synthroid) 50 mcg DAILY@0630 ORAL 06/01/19 06:30 07/01/19 06:29 06/04/19 06:41 Magnesium Hydroxide (Mom) 30 ml Q4H PRN ORAL Constipation 06/03/19 16:15 07/03/19 16:14 06/03/19 18:05 Metoprolol Succinate (Toprol XL) 100 mg DAILY ORAL 06/01/19 09:00 07/01/19 08:59 06/04/19 09:20 Olanzapine (ZyPREXA) 10 mg BID ORAL 05/31/19 23:15 06/30/19 23:14 06/04/19 09:25 Prednisone (predniSONE) 10 mg DAILY ORAL 06/04/19 11:00 07/04/19 10:59 Sodium Chloride 1,000 ml @ 75 mls/hr [id number] IV 06/01/19 08:00 07/01/19 07:59 06/03/19 20:29 Zolpidem Tartrate (Ambien) 5 mg BEDTIME PRN ORAL Insomnia 05/31/19 23:00 06/07/19 22:59 06/03/19 21:49 Last 24 Hour Vital Signs Date Time Temp Pulse Resp B/P (MAP) Pulse Ox O2 Delivery O2 Flow Rate FiO2 06/04/19 09:20 89 134/69 06/04/19 09:20 89 134/69 06/04/19 09:00 Nasal Cannula 2.0 06/04/19 08:37 90 Nasal Cannula 2.0 28 06/04/19 08:37 89 20 95 Nasal Cannula 4.0 36 85 20 90 06/04/19 08:00 97.9 63 18 134/69 (90) 90 06/04/19 04:00 97.5 69 18 127/77 (94) 90 06/04/19 00:18 75 18 96 Nasal Cannula 2.0 28 71 16 90 06/04/19 00:00 20 91 06/03/19 21:00 Nasal Cannula 2.0 06/03/19 20:00 97.0 74 18 124/65 (84) 91 06/03/19 19:31 90 Nasal Cannula 2.0 28 06/03/19 19:31 78 20 96 Nasal Cannula 2.0 28 76 18 90 06/03/19 16:00 98.7 79 18 127/72 (90) 98 06/03/19 12:00 98.1 90 19 127/75 (92) 97 06/03/19 09:22 83 135/72 06/03/19 09:22 83 135/72 06/03/19 09:00 Nasal Cannula 2.0 06/03/19 08:00 97.6 83 18 135/72 (93) 94 06/03/19 07:39 91 Nasal Cannula 2.0 28 06/03/19 07:39 81 20 97 Nasal Cannula 2.0 28 78 17 91 06/03/19 04:30 97.4 79 20 115/62 (79) 94 06/03/19 02:02 88 20 95 Nasal Cannula 2.0 28 80 17 90 06/03/19 00:00 97.6 72 20 125/72 (89) 90 06/02/19 21:04 92 Nasal Cannula 2.0 28 06/02/19 21:00 Nasal Cannula 2.0 06/02/19 20:00 97.5 81 20 120/70 (87) 89 06/02/19 16:00 98.3 90 19 127/69 (88) 95 06/02/19 12:00 97.3 97 19 117/65 (82) 96 Intake and Output 06/03/19 06/04/19 19:00 07:00 Intake Total 1440 ml 1300 ml Balance 1440 ml 1300 ml Intake Oral 1440 ml 400 ml IV Total 900 ml # Voids 8 6 Height (Feet): 5 Height (Inches): 4.00 Weight (Pounds): 160 Objective Physical Exam: Vitals: reviewed General: NAD Neck: supple Chest: clear breath sounds bilaterally Cardiovascular: RRR, no s3, s4 Abdomen: soft, nontender, nd Extremities: no cce, normal range of motion Mental: alert Jorje Troy MD Jun 04, 2019 11:13
[2019-06-04 11:53] LABS: BASOPHILS % (AUTO) 0.8 % (0.0-2.0); HEMATOCRIT 50.3 % (37.0-47.0); HEMOGLOBIN 17.5 G/DL (12.0-16.0); LYMPHOCYTES % (AUTO) 9.6 % (20.0-45.0); MEAN CORPUSCULAR VOLUME 93 FL (80-99); MONOCYTES % (AUTO) 4.8 % (1.0-10.0); NEUTROPHILS % (AUTO) 84.8 % (45.0-75.0); PLATELET COUNT 180 K/UL (150-450); RED BLOOD COUNT 5.43 M/UL (4.20-5.40); RED CELL DISTRIBUTION WIDTH 11.1 % (11.6-14.8); WHITE BLOOD COUNT 13.3 K/UL (4.8-10.8)
[2019-06-04 12:00] VITALS: BP 115/68
--- NOTE | 2019-06-04 12:13 | NUR ---
NURSE NOTES: Received call from Dr. Mirza MD ordered to discharge patient as soon as able and MD will contact Dr. Sargent Addendum: 06/04/19 at 1215 by Michelle Avina RN NURSE NOTES: Add: Dr. Dutta. ordered to discharge patient as soon as able and MD will contact Dr. Sargent regarding continuation of PO prednisone after discharge.
--- NOTE | 2019-06-04 15:03 | NUR ---
*-* DISCHARGE PLANNED*-* PATIENT IS BEING DISCHARGED TO: [facility] P: [phone] F: [phone] RM# [id number] [facility] [id number] S/W [place] 3:45PM/ 1545PM
--- NOTE | 2019-06-04 15:46 | NUR ---
NURSE NOTES: Called Darcie Castro, report given to Heydi about patient's transfer.
--- NOTE | 2019-06-04 15:50 | NUR ---
NURSE NOTES Patient asked about flu and pneumonia vaccine, patient said she refused flu vaccine and received pneumonia vaccine a month ago.
[2019-06-04 16:00] VITALS: BP 129/75
--- NOTE | 2019-06-04 16:15 | NUR ---
NURSE NOTES: Patient is discharged to [facility] via [facility]. Patient is alert and awake, verbally responsiveness. Respiration is even and unlabored on O2 @2l/min via NC. Skin is warm and dry to touch. Skin is intact at this time. Patient has denture on her upper jaw. Denies any pain and discomfort. Patient is noted with medium size soft formed BM. Site is kept clean and dry. IV site on right forearm is removed, pressure dressing applied to stop any bleeding. Report given to two EMT staff; resident is in-placed in a gurney and exited the hospital in no acute distress. Addendum: 06/04/19 at 1658 by Ben Hickman RN NURSE NOTES: patient is discharged to [facility] via [facility]. patient is alert and awake, verbally responsiveness. respiration is even and unlabored on O2 @2l/min via NC. skin is warm and dry to touch. skin is intact at this time. patient has denture on her upper jaw. Denies any pain and discomfort. patient is noted with medium size soft formed BM. kept clean and dry. IV site on right forearm is removed, pressure dressing applied to stop any bleeding. report given to 2 EMT staff; patient is placed in a gurney and exited the hospital in no acute distress.
--- NOTE | 2019-06-05 12:28 | Discharge Summary ---
Discharge Summary Discharge Summary _ DATE OF ADMISSION: 05/31/2019 DATE OF DISCHARGE: 06/04/2019 DISCHARGED BY: Dr. Dutta REASON FOR ADMISSION: 68 years old female, resident of [facility], with past medical history of hypertension, psychiatric disorder, depression, COPD ,schizophrenia , presented with shortness of breath and productive cough for few days. She denied fever or chills. No chest pain. Upon evaluation vital signs are stable. Pulse oximetry was stable on room air. Laboratory work-up revealed no leukocytosis, stable hemoglobin 19.4, hematocrit 53.9 and platelet count 220. Stable electrolytes and renal parameters. Glucose 107. Stable LFT. Urinalysis revealed no evidence of urinary tract infection . EKG revealed sinus rhythm , no acute ischemic changes . Chest x-ray revealed no acute cardiopulmonary pathology. Clinically patient presented with COPD exacerbation. Patient received steroid, bronchodilator treatment with DuoNeb and admitted for further management. CONSULTANTS: pulmonary Dr. Sargent ID specialist Dr. Cohen music autographer/oncologist Dr. Troy [facility] COURSE: Patient admitted e to medical surgical floor. Stone Engraver followed. Patient initially was on the IV steroids which tapered and changed to oral steroids. Patient also started on empiric antibiotics. Supplemental oxygen provided and titrated to keep oximetry above 92%. Pulmonary toilet with bronchodilator provided [id number] and as needed. Patient remained afebrile , but developed mild leukocytosis, likely due to steroids . Steroids changed to oral. Blood pressure was managed with beta-blocke and calcium channel erin. Synthroid and statin continued. Hemoglobin and hematocrit were closely monitored. Patient received 1 L of fluid. Meat Supervisor recommended, if hemoglobin consistently remained elevated , check JAK2 and outpatient work-up. Hemoglobin down to 17.5 upon discharge. Psychiatric medications were continued. Symptomatic treatment provided. Supportive care provided. Patient clinically stabilized and was ready for transfer back to assisted living. FINAL DIAGNOSES: COPD exacerbation Secondary polycythemia , possibly related to dehydration Schizoaffective disorder Hypothyroidism Dyslipidemia Hypertension DISCHARGE MEDICATIONS: See Medication Reconciliation list. DISCHARGE INSTRUCTIONS: Patient was discharged to assisted living. Follow-up with a primary care provider in 1 week. Recommended outpatient work-up for polycythemia. I have been assigned to dictate discharge summary for this account. I was not involved in the patient's management. Tatyana Madsen NP Jun 05, 2019 12:27
== END 2019-06-04 16:15 | DRG 191 ==
LOC: EDBD 13:19 → EMR 14:27 → 3E 14:33 → EDBEDREQ 18:17 → 3E 20:40
DX: J44.1 Chronic obstructive pulmonary disease with (acute) exacerbation (principal); J96.12 Chronic respiratory failure with hypercapnia; F17.200 Nicotine dependence, unspecified, uncomplicated; E03.9 Hypothyroidism, unspecified; E78.5 Hyperlipidemia, unspecified; I10 Essential (primary) hypertension; D75.1 Secondary polycythemia; E86.0 Dehydration; F25.9 Schizoaffective disorder, unspecified; R47.02 Dysphasia; E88.09 Other disorders of plasma-protein metabolism, not elsewhere classified
CPT/HCPCS: 36415; 71045; 80053; 81003; 85025; 85610; 85730; 87081; 93005; 94640; 99285; J7030; J7620